=== PATIENT | female | born 1995 | race Caucasian/White ===

== ENCOUNTER 2020-08-03 19:18 | Emergency (ER) | payer BC, SELFPAY ==
--- NOTE | 2020-08-03 | ECG_ITS ---
Test Reason : EDMD Blood Pressure : / mmHG Vent. Rate : 091 BPM Atrial Rate : 091 BPM P-R Int : 134 ms QRS Dur : 080 ms QT Int : 372 ms P-R-T Axes : 035 026 011 degrees QTc Int : 457 ms Normal sinus rhythm Normal ECG When compared with ECG of 24-AUG-2019 12:59, No significant change was found Referred By: Generic ED Physician Electronically Signed By:CINDY MONTIEL
[2020-08-03 19:25] VITALS: BP 113/76; BP 141/72; PULSE 100; RESP 20; TEMP 36.7; O2SAT 99; BMI 19.1
--- NOTE | 2020-08-03 19:56 | ED.CHESTPAIN ---
HPI - Chest Pain General Chief Complaint: Chest Pain Stated Complaint: chest pressure anxiety Time Seen by Provider: 08/03/20 19:46 Related Data Home Medications Medication Instructions Recorded Confirmed alprazolam [Xanax] 0.25 mg PO DAILY 08/03/20 08/03/20 loratadine 10 mg PO DAILY 08/03/20 08/03/20 omeprazole 20 mg PO DAILY 08/03/20 08/03/20 Previous Rx's Medication Instructions Recorded cephalexin [Keflex] 500 mg PO Q12H 7 Days #14 cap 08/03/20 lorazepam [Ativan] 0.5 mg PO DAILY PRN #10 tab 08/03/20 Allergies Allergy/AdvReac Type Severity Reaction Status Date / Time No Known Allergies Allergy Verified 08/03/20 19:35 [No Known Allergies*] Review of Systems Review of Systems: Constitutional: No Weight loss, No Fever, No Chills, No Night Sweats, No Fatigue, No Malaise ENT/Mouth: No Hearing loss, No Ear Pain, No Nasal Congestion, No Sinus Pain, No Hoarseness, No sore throat, No Rhinorrhea, No Swallowing Difficulty Eyes: No Eye Pain, No Swelling, No Redness, No Foreign Body, No Discharge, No Vision Changes Cardiovascular: pos Chest Pain, pos SOB, no Dyspnea on Exertion, No Orthopnea, No Edema, positive Palpitations Respiratory: No Cough, No Sputum, No Wheezing, No Smoke Exposure, No Dyspnea Gastrointestinal: No Nausea, No Vomiting, No Diarrhea, No abdominal Pain, No Hematochezia, No Melena Genitourinary: No irregular bleeding, No Dysuria, No Urinary Frequency, No Hematuria, No Urinary Incontinence, No Urgency, No Flank Pain, No Urinary Flow Changes, No Hesitancy Musculoskeletal: No joint pain, No Myalgias, No Joint Swelling Skin: No Skin Lesions, No rash Neuro: No Weakness, No Numbness, No Paresthesias, No Loss of Consciousness, No Dizziness, No Headache Psych: No Anxiety/Panic, No Depression, No SI/HI/AH/VH Heme/Lymph: No Bruising, No Bleeding,No Lymphadenopathy Endocrine: No Polyuria, No Polydipsia, No Temperature Intolerance Yes all other systems are reviewed and are negative [facility] Past Medical History Attestation statement: The following information was validated with the patient. Source: old records reviewed Medical History (Updated 08/03/20 @ 21:27 by Savana Delgadillo NP) Anxiety Social History Social History Alcohol intake: never Smoking Status: Never smoker Use of substances other than those prescribed or required for medical reasons: No Advance Directives: No Advance Directives Information Provided: No Physical Exam Vital Signs: Vital Signs: Last Vital Signs Temp 98.9 F 08/03/20 21:49 Pulse 80 08/03/20 21:49 Resp 16 08/03/20 21:49 BP 129/79 08/03/20 21:49 Pulse Ox 99 08/03/20 21:49 Body Mass Index 19.1 Appearance: Alert. Oriented X3. No acute distress. Eyes: Pupils equal, round and reactive to light. ENT: Pharynx normal. Neck: Normal inspection. Neck supple. CVS: Normal heart rate and rhythm. Pulses normal. Respiratory: No respiratory distress. Breath sounds normal. Abdomen: Soft and nontender. Skin: Skin warm and dry. Normal skin color. Normal skin turgor. Extremities: No lower extremity edema. Neuro: No motor deficit. No sensory deficit. Course Course Course Narrative: 25-year-old female with past medical history of anxiety and environmental allergies presents to the emergency department with chest pain, palpitations, dizziness and weakness. She does not have a family history of sudden cardiac or congenital cardiac abnormalities. She states that her job is very stressful and that she has been very anxious over the past several months. She does drink alcohol on a daily basis, stating that she did drink 6 glasses of wine last night. Plan of care is to rule out ACS, CBC, Chem 7 and urinalysis. EKG is normal sinus rhythm, troponins negative, CBC is normal, chemistries are normal, urinalysis indicates UTI. Will treat with Keflex 500 mg p.o. b.i.d.. Will give patient 10 tablets of Ativan 0.5 mg, she was unable to get back to her primary care physician secondary to COVID-19 restrictions and her Xanax prescription has run out. Detailed discussion regarding finding healthier habits than alcohol, she does understand that she should not drink alcohol with her Ativan. Patient verbalized understanding of and agrees plan of care discharge home. MDM - Chest Pain Differential Diagnosis Differential diagnosis: Likely fracture of rib, stable angina, atypical chest pain and st elevation myocardial infarction Medical Records Data Attestation: I reviewed the patient's medical records. Lab Data Attestation: I reviewed the patient's lab results. Result diagrams: 08/03/20 20:01 08/03/20 20:01 Labs: Lab Results 08/03/20 08/03/20 08/03/20 Range/Units 20: 20:01 20:01 WBC 5.6 (4.8-10.8) X10*3/uL RBC 4.19 L (4.20-5.50) X10*6/uL Hgb 12.9 (12.0-16.0) g/dl Hct 38.1 (37-47) % MCV 90.9 (80-98) fL MCH 30.8 (27.0-33.0) pg MCHC 33.9 (31.0-35.0) g/dl RDW 11.3 (11.0-16.0) % Plt Count 301 (160-400) X10*3/uL MPV 8.6 L (9.4-12.3) fL Immature Gran % (Auto) 0.0 (0.0-0.4) % Neut % (Auto) 72.7 (45-73) % Lymph % (Auto) 18.3 L (20-40) % Cross % (Auto) 7.2 (2-11) % Eos % (Auto) 1.4 (0-4) % Baso % (Auto) 0.4 (0-2) % Lymph # (Auto) 1.0 L (1.2-4.9) X10*3/uL Cross # (Auto) 0.4 (0.1-1.2) X10*3/uL Eos # (Auto) 0.1 (0.0-0.4) X10*3/uL Baso # (Auto) 0.0 (0.0-0.2) X10*3/uL Abs Immat Gran (auto) 0.00 (0.00-0.03) X10*3/uL Absolute Neuts (auto) 4.1 (2.0-8.3) X10*3/uL Absolute Nucleated RBC 0.000 (0.0-0.012) X10*3/uL Nucleated RBC % (auto) 0.0 (0.0-0.2) /100WBC Sodium 138 (135-145) mmol/L Potassium 3.5 (3.3-5.1) mmol/l Chloride 101 (96-108) mmol/L Carbon Dioxide 26 (22-29) mmol/L Anion Gap 15 (12-20) BUN 11 (9-16) mg/dL Creatinine 0.77 (0.5-1.4) mg/dL Estim Creat Clear Calc 92.8 Estimated GFR > 60 Random Glucose 95 (60-115) mg/dL Calcium 9.0 (8.4-10.2) mg/dL Troponin I High Sens < 3.5 (<3.5-17.0) ng/L Urine Color Urine Appearance Urine pH (5.0-8.0) Ur Specific [place] (1.005-1.025) Urine Protein (NEG-TRACE) MG/DL Urine Glucose (UA) (NEG) MG/DL Urine Ketones (NEG) MG/DL Urine Blood (NEG) Urine Nitrite (NEG) Ur Leukocyte Esterase (NEG) Urine RBC (0) /HPF Urine WBC (0-4) /HPF Ur Squamous Epith Cells /LPF Urine Bacteria /LPF Urine Test (NEGATIVE) 08/03/20 Range/Units 20:29 WBC (4.8-10.8) X10*3/uL RBC (4.20-5.50) X10*6/uL Hgb (12.0-16.0) g/dl Hct (37-47) % MCV (80-98) fL MCH (27.0-33.0) pg MCHC (31.0-35.0) g/dl RDW (11.0-16.0) % Plt Count (160-400) X10*3/uL MPV (9.4-12.3) fL Immature Gran % (Auto) (0.0-0.4) % Neut % (Auto) (45-73) % Lymph % (Auto) (20-40) % Cross % (Auto) (2-11) % Eos % (Auto) (0-4) % Baso % (Auto) (0-2) % Lymph # (Auto) (1.2-4.9) X10*3/uL Cross # (Auto) (0.1-1.2) X10*3/uL Eos # (Auto) (0.0-0.4) X10*3/uL Baso # (Auto) (0.0-0.2) X10*3/uL Abs Immat Gran (auto) (0.00-0.03) X10*3/uL Absolute Neuts (auto) (2.0-8.3) X10*3/uL Absolute Nucleated RBC (0.0-0.012) X10*3/uL Nucleated RBC % (auto) (0.0-0.2) /100WBC Sodium (135-145) mmol/L Potassium (3.3-5.1) mmol/l Chloride (96-108) mmol/L Carbon Dioxide (22-29) mmol/L Anion Gap (12-20) BUN (9-16) mg/dL Creatinine (0.5-1.4) mg/dL Estim Creat Clear Calc Estimated GFR Random Glucose (60-115) mg/dL Calcium (8.4-10.2) mg/dL Troponin I High Sens (<3.5-17.0) ng/L Urine Color YELLOW Urine Appearance CLEAR Urine pH 7.0 (5.0-8.0) Ur Specific [place] 1.010 (1.005-1.025) Urine Protein NEG (NEG-TRACE) MG/DL Urine Glucose (UA) NEG (NEG) MG/DL Urine Ketones 5 (NEG) MG/DL Urine Blood 2+ H (NEG) Urine Nitrite NEG (NEG) Ur Leukocyte Esterase NEG (NEG) Urine RBC 10-14 H (0) /HPF Urine WBC 0 (0-4) /HPF Ur Squamous Epith Cells 3+ /LPF Urine Bacteria 1+ /LPF Urine Test NEGATIVE (NEGATIVE) ECG Data ECG #1: Attestation: I personally reviewed and interpreted this ECG as follows: ECG interpretation date: 08/03/20 ECG interpretation time: 19:50 Interpretation: Vent. Rate : 091 BPM Atrial Rate : 091 BPM P-R Int : 134 ms QRS Dur : 080 ms QT Int : 372 ms P-R-T Axes : 035 026 011 degrees QTc Int : 457 ms Normal sinus rhythm Normal ECG When compared with ECG of 24-AUG-2019 12:59, No significant change was found Scores Heart Score History: -0- slightly suspicious ECG: -0- normal Age: -0- < or = 45 Risk factory: -0- no risk factors known Troponin: -0- < or = normal limit Score: 0 Risk: 1.7% Discharge Plan Discharge Clinical Impression: Anxiety, Non-cardiac chest pain UTI (urinary tract infection) Qualifiers: Urinary tract infection type: acute cystitis Hematuria presence: with hematuria Qualified Code(s): N30.01 - Acute cystitis with hematuria Patient Disposition: Home, Self-Care Instructions: Urinary Tract Infection in Women (ED), Noncardiac Chest Pain (ED), Anxiety (ED) Additional Instructions: You were evaluated for chest pain. EKG is normal sinus rhythm, cardiac enzymes are negative,. Your blood levels are normal. Urinalysis shows indication of urinary tract infection. Please take Keflex 500 mg twice a day for the next 7 days. Drink plenty of fluids. We prescribed Ativan for anxiety. Please take this medication as directed. This medication is a benzo diazepam and has high risk for addiction and abuse. Do not drive or operate machinery while taking this medication. Do not drink alcohol while taking this medication Thank you for choosing this emergency department for evaluation. Please follow-up with primary care physician as needed. Return to the emergency department for any new, concerning, or worsening symptoms. Prescriptions: New lorazepam [Ativan] 0.5 mg tablet 0.5 mg PO DAILY PRN (Reason: anxiety) Qty: 10 RF: 0 cephalexin [Keflex] 500 mg capsule 500 mg PO Q12H 7 Days Qty: 14 RF: 0 No Action alprazolam [Xanax] 0.25 mg Tablet 0.25 mg PO DAILY RF: 0 omeprazole 20 mg Capsule,Delayed Release(Dr/Ec) 20 mg PO DAILY RF: 0 loratadine 10 mg Tablet 10 mg PO DAILY RF: 0 Interventions: ED Discharge Assessment Last Done: 08/03/20 21:51 Discharge Date/Time: 08/03/20 21:53
[2020-08-03 20:06] LABS: MANUAL DIFF FLAG NO
[2020-08-03 20:07] LABS: Basophils Percent Auto 0.4 % (0-2); Eosinophils Absolute Auto 0.1 X10*3/uL (0.0-0.4); Eosinophils Percent Auto 1.4 % (0-4); Hematocrit 38.1 % (37-47); Hemoglobin 12.9 g/dl (12.0-16.0); Lymphocytes Percent Auto 18.3 % (20-40); Mean Corpuscular HGB Conc 33.9 g/dl (31.0-35.0); Mean Corpuscular Hemoglobin 30.8 pg (27.0-33.0); Mean Corpuscular Volume 90.9 fL (80-98); Mean Platelet Volume 8.6 fL (9.4-12.3); Monocytes Absolute Auto 0.4 X10*3/uL (0.1-1.2); Monocytes Percent Auto 7.2 % (2-11); Neutrophils Absolute Auto 4.1 X10*3/uL (2.0-8.3); Neutrophils Percent Auto 72.7 % (45-73); Platelet Count 301 X10*3/uL (160-400); Red Blood Count 4.19 X10*6/uL (4.20-5.50); Red Cell Distribution Width 11.3 % (11.0-16.0); White Blood Count 5.6 X10*3/uL (4.8-10.8)
[2020-08-03 20:31] LABS: Anion Gap 15 (12-20); Blood Urea Nitrogen 11 mg/dL (9-16); Carbon Dioxide 26 mmol/L (22-29); Chloride 101 mmol/L (96-108); Creatinine Clr Calc Pharmacy 92.8; Estimated Glomerular Filt Rate > 60; Glucose Random 95 mg/dL (60-115); Potassium 3.5 mmol/l (3.3-5.1); Sodium 138 mmol/L (135-145)
[2020-08-03 20:37] LABS: Glucose Urine UA NEG (NEG); Leukocyte Esterase Urine NEG (NEG); Nitrite Urine NEG (NEG); Urine Blood 2+ (NEG); Urine Ketones 5 MG/DL (NEG); Urine Protein NEG (NEG-TRACE)
[2020-08-03 20:38] LABS: Appearance Urine CLEAR; Color Urine YELLOW; Urine Pregnancy NEGATIVE (NEGATIVE)
[2020-08-03 20:38] LABS: Troponin-I High Sensitivity < 3.5 ng/L (<3.5-17.0)
[2020-08-03 20:39] LABS: UPreg QC Valid YES
[2020-08-03 20:44] LABS: Bacteria Urine 1+ /LPF; Squamous Epithelial Cell Urine 3+ /LPF; WBC Urine 0 /HPF (0-4)
[2020-08-03] MEDS: cephALEXin 500 MG CAPSULE PO (21:35)
[2020-08-03 21:49] VITALS: BP 129/79; PULSE 80; RESP 16; TEMP 37.2; O2SAT 99
== END 2020-08-03 21:53 | disposition home or self-care (01) ==
PROVIDERS: Nurse Practitioner Family; Emergency Provider Emergency Medicine Emergency Medical Services; PCP Internal Medicine
DX: R07.89 Other chest pain (principal); N30.01 Acute cystitis with hematuria; F41.1 Generalized anxiety disorder; F43.0 Acute stress reaction
CPT/HCPCS: 36415; 80048; 81001; 81025; 84484; 85025; 93005; 99283; 99284

== ENCOUNTER 2020-11-29 16:25 | Emergency (ER) | payer BC, SELFPAY ==
--- NOTE | ~2020-11-29 | XR_ITS ---
EXAMINATION: PORTABLE CHEST 1 VIEW CLINICAL INFORMATION: CHEST PAIN . COMPARISON: No recent pertinent prior studies are available for comparison. TECHNIQUE: Portable frontal view of the chest was obtained. FINDINGS: The lungs are well expanded. No focal infiltrate, effusion, edema, or pneumothorax. Cardiac and mediastinal silhouettes are within normal limits for technique. No acute bony abnormality seen. XR/XR chest 1V IMPRESSION: No evidence of acute disease.
[2020-11-29 16:28] VITALS: BP 145/90; PULSE 88; RESP 28; TEMP 37.2; O2SAT 100; BMI 19.3
--- NOTE | 2020-11-29 19:14 | ECG_ITS ---
Test Reason : CHEST PAIN Blood Pressure : / mmHG Vent. Rate : 093 BPM Atrial Rate : 093 BPM P-R Int : 140 ms QRS Dur : 084 ms QT Int : 386 ms P-R-T Axes : 044 015 -04 degrees QTc Int : 479 ms Normal sinus rhythm Normal ECG When compared with ECG of 03-AUG-2020 19:50, No significant change was found Referred By: Generic ED Physician Electronically Signed By:FENG HICKEY MD
[2020-11-29 20:16] VITALS: BP 131/81; PULSE 98; RESP 16; TEMP 37; O2SAT 100
[2020-11-29 20:20] VITALS: PULSE 98
[2020-11-29 20:38] LABS: MANUAL DIFF FLAG NO
[2020-11-29 20:40] LABS: Basophils Percent Auto 0.2 % (0-2); Eosinophils Absolute Auto 0.1 X10*3/uL (0.0-0.4); Eosinophils Percent Auto 1.5 % (0-4); Hematocrit 37.8 % (37-47); Hemoglobin 12.7 g/dl (12.0-16.0); Imm Gran Abs Auto 0.01 X10*3/uL (0.00-0.03); Imm Gran Pct Auto 0.2 % (0.0-0.4); Lymphocytes Absolute Auto 1.2 X10*3/uL (1.2-4.9); Lymphocytes Percent Auto 20.3 % (20-40); Mean Corpuscular HGB Conc 33.6 g/dl (31.0-35.0); Mean Corpuscular Hemoglobin 31.3 pg (27.0-33.0); Mean Corpuscular Volume 93.1 fL (80-98); Mean Platelet Volume 8.5 fL (9.4-12.3); Monocytes Absolute Auto 0.4 X10*3/uL (0.1-1.2); Monocytes Percent Auto 7.4 % (2-11); Neutrophils Absolute Auto 4.1 X10*3/uL (2.0-8.3); Neutrophils Percent Auto 70.4 % (45-73); Platelet Count 327 X10*3/uL (160-400); Red Blood Count 4.06 X10*6/uL (4.20-5.50); Red Cell Distribution Width 11.6 % (11.0-16.0); White Blood Count 5.9 X10*3/uL (4.8-10.8)
--- NOTE | 2020-11-29 21:07 | ED.CHESTPAIN ---
HPI - Chest Pain General Chief Complaint: Chest Pain Stated Complaint: chest pain Time Seen by Provider: 11/29/20 21:07 Source: patient Mode of arrival: ambulatory History of Present Illness HPI narrative: Patient with longstanding history of anxiety and panic attack panic attacks as well as Xanax dependency and has been trying to undergo a tapering protocol but unable to. She has been taking more than her prescribed recommendations and currently presents with feelings of anxiety tremulousness, palpitations, shortness of breath, chest pain, abdominal symptoms. She states that she finished her medications 2 weeks prior to the refill. She says that the tapering is not working for her and that it is affecting her ability to function on a daily basis. She does say that she wants to the speak with somebody regarding her anxiety. Related Data Home Medications Medication Instructions Recorded Confirmed alprazolam [Xanax] 0.25 mg PO DAILY 08/03/20 08/03/20 loratadine 10 mg PO DAILY 08/03/20 08/03/20 omeprazole 20 mg PO DAILY 08/03/20 08/03/20 Previous Rx's Medication Instructions Recorded cephalexin [Keflex] 500 mg PO Q12H 7 Days #14 cap 08/03/20 lorazepam [Ativan] 0.5 mg PO DAILY PRN #10 tab 08/03/20 hydroxyzine HCl 25 mg PO TID PRN #10 tab 11/29/20 Allergies Allergy/AdvReac Type Severity Reaction Status Date / Time No Known Allergies Allergy Verified 08/03/20 19:35 [No Known Allergies*] Review of Systems Review of Systems: Pertinent positives and negatives as stated in HPI 10 point review of systems is otherwise negative. [facility] Past Medical History Source: nursing notes reviewed Medical History Anxiety Social History Social History Alcohol intake: unknown Smoking Status: Unknown if ever smoked Use of substances other than those prescribed or required for medical reasons: Unknown Substance Use Type Other:: xanax- prescribed 0.25mg daily, states she has not taken today Advance Directives: No Advance Directives Information Provided: No Physical Exam Vital Signs: Vital Signs: Last Vital Signs Temp 98.6 F 11/29/20 20:16 Pulse 98 11/29/20 20:16 Resp 16 11/29/20 20:16 BP 131/81 11/29/20 20:16 Pulse Ox 100 11/29/20 20:16 Body Mass Index 19.3 VITAL SIGNS: Reviewed. GENERAL: Well developed, well nourished, anxious. HEAD: Normocephalic/atraumatic EYES: PERRLA, EOMI EARS: Ext canals without abnormality NOSE: Nares patent bilateral OROPHARYNX: no oral lesions noted, posterior pharynx clear NECK: Supple, no adenopathy LUNGS: Normal breath sounds. No adventitious sounds or accessory muscle use. SpO2<100> CARDIOVASCULAR: Regular rate and rhythm without noted murmurs ABDOMEN: Soft, non-tender, non-distended with bowel sounds. NEUROLOGIC: Alert and oriented x 4. Strength and sensation to light touch were grossly intact x 4. PSYCH: Anxious, tremulous, anxious affect Course Course Course Narrative: This is a 25-year-old female with history and clinical presentation consistent with anxiety attack and persistent anxiety symptoms. She is currently being followed by a primary care provider as well as psychiatrist. Of all investigations there is no evidence for infection, anemia, metabolic derangement to better explain patient's symptoms. EKG is without acute findings to suggest arrhythmia or ischemia. Care team came by and spoke with the patient and offer her rest but and some additional resources, however patient is declining all suggestions at this time stating that she is unable to do so because of her job. She is not suicidal at this time and is otherwise medically stable for discharge to home and will be provided with a short course of hydroxyzine to assist in management of her anxiety symptoms. MDM - Chest Pain Lab Data Result diagrams: 11/29/20 20:33 11/29/20 20:33 Labs: Lab Results 11/29/20 11/29/20 11/29/20 Range/Units 20:33 20:33 20:33 WBC 5.9 (4.8-10.8) X10*3/uL RBC 4.06 L (4.20-5.50) X10*6/uL Hgb 12.7 (12.0-16.0) g/dl Hct 37.8 (37-47) % MCV 93.1 (80-98) fL MCH 31.3 (27.0-33.0) pg MCHC 33.6 (31.0-35.0) g/dl RDW 11.6 (11.0-16.0) % Plt Count 327 (160-400) X10*3/uL MPV 8.5 L (9.4-12.3) fL Immature Gran % (Auto) 0.2 (0.0-0.4) % Neut % (Auto) 70.4 (45-73) % Lymph % (Auto) 20.3 (20-40) % [place] % (Auto) 7.4 (2-11) % Eos % (Auto) 1.5 (0-4) % Baso % (Auto) 0.2 (0-2) % Lymph # (Auto) 1.2 (1.2-4.9) X10*3/uL [place] # (Auto) 0.4 (0.1-1.2) X10*3/uL Eos # (Auto) 0.1 (0.0-0.4) X10*3/uL Baso # (Auto) 0.0 (0.0-0.2) X10*3/uL Abs Immat Gran (auto) 0.01 (0.00-0.03) X10*3/uL Absolute Neuts (auto) 4.1 (2.0-8.3) X10*3/uL Absolute Nucleated RBC 0.000 (0.0-0.012) X10*3/uL Nucleated RBC % (auto) 0.0 (0.0-0.2) /100WBC Hold Blue Top SEE NOTE Sodium 141 (135-145) mmol/L Potassium 3.9 (3.3-5.1) mmol/L Chloride 104 (96-108) mmol/L Carbon Dioxide 27 (22-29) mmol/L Anion Gap 14 (12-20) BUN 6 L (9-16) mg/dL Creatinine 0.73 (0.5-1.4) mg/dL Estim Creat Clear Calc 99.5 Estimated GFR > 60 Random Glucose 105 (60-115) mg/dL Calcium 9.9 D (8.4-10.2) mg/dL Troponin I High Sens (<3.5-17.0) ng/L Urine Color Urine Appearance Urine pH (5.0-8.0) Ur Specific [place] (1.005-1.025) Urine Protein (NEG-TRACE) MG/DL Urine Glucose (UA) (NEG) MG/DL Urine Ketones (NEG) MG/DL Urine Blood (NEG) Urine Nitrite (NEG) Ur Leukocyte Esterase (NEG) Urine Opiates Screen (Not Detect) Ur Barbiturates Screen (Not Detect) Ur Phencyclidine Scrn (Not Detect) Ur Amphetamines Screen (Not Detect) U Benzodiazepines Scrn (Not Detect) Urine Cocaine Screen (Not Detect) U Marijuana (THC) Screen (Not Detect) COVID-19 ([facility]) (Negative) COVID-19 Clin Com 11/29/20 11/29/20 11/29/20 Range/Units 20:33 20:43 21:42 WBC (4.8-10.8) X10*3/uL RBC (4.20-5.50) X10*6/uL Hgb (12.0-16.0) g/dl Hct (37-47) % MCV (80-98) fL MCH (27.0-33.0) pg MCHC (31.0-35.0) g/dl RDW (11.0-16.0) % Plt Count (160-400) X10*3/uL MPV (9.4-12.3) fL Immature Gran % (Auto) (0.0-0.4) % Neut % (Auto) (45-73) % Lymph % (Auto) (20-40) % [place] % (Auto) (2-11) % Eos % (Auto) (0-4) % Baso % (Auto) (0-2) % Lymph # (Auto) (1.2-4.9) X10*3/uL [place] # (Auto) (0.1-1.2) X10*3/uL Eos # (Auto) (0.0-0.4) X10*3/uL Baso # (Auto) (0.0-0.2) X10*3/uL Abs Immat Gran (auto) (0.00-0.03) X10*3/uL Absolute Neuts (auto) (2.0-8.3) X10*3/uL Absolute Nucleated RBC (0.0-0.012) X10*3/uL Nucleated RBC % (auto) (0.0-0.2) /100WBC Hold Blue Top Sodium (135-145) mmol/L Potassium (3.3-5.1) mmol/L Chloride (96-108) mmol/L Carbon Dioxide (22-29) mmol/L Anion Gap (12-20) BUN (9-16) mg/dL Creatinine (0.5-1.4) mg/dL Estim Creat Clear Calc Estimated GFR Random Glucose (60-115) mg/dL Calcium (8.4-10.2) mg/dL Troponin I High Sens < 3.5 (<3.5-17.0) ng/L Urine Color YELLOW Urine Appearance CLEAR Urine pH 7.0 (5.0-8.0) Ur Specific [place] 1.010 (1.005-1.025) Urine Protein NEG (NEG-TRACE) MG/DL Urine Glucose (UA) NEG (NEG) MG/DL Urine Ketones NEG (NEG) MG/DL Urine Blood NEG (NEG) Urine Nitrite NEG (NEG) Ur Leukocyte Esterase NEG (NEG) Urine Opiates Screen (Not Detect) Ur Barbiturates Screen (Not Detect) Ur Phencyclidine Scrn (Not Detect) Ur Amphetamines Screen (Not Detect) U Benzodiazepines Scrn (Not Detect) Urine Cocaine Screen (Not Detect) U Marijuana (THC) Screen (Not Detect) COVID-19 ([facility]) Negative (Negative) COVID-19 Clin Com See Note 11/29/20 Range/Units 21:42 WBC (4.8-10.8) X10*3/uL RBC (4.20-5.50) X10*6/uL Hgb (12.0-16.0) g/dl Hct (37-47) % MCV (80-98) fL MCH (27.0-33.0) pg MCHC (31.0-35.0) g/dl RDW (11.0-16.0) % Plt Count (160-400) X10*3/uL MPV (9.4-12.3) fL Immature Gran % (Auto) (0.0-0.4) % Neut % (Auto) (45-73) % Lymph % (Auto) (20-40) % [place] % (Auto) (2-11) % Eos % (Auto) (0-4) % Baso % (Auto) (0-2) % Lymph # (Auto) (1.2-4.9) X10*3/uL [place] # (Auto) (0.1-1.2) X10*3/uL Eos # (Auto) (0.0-0.4) X10*3/uL Baso # (Auto) (0.0-0.2) X10*3/uL Abs Immat Gran (auto) (0.00-0.03) X10*3/uL Absolute Neuts (auto) (2.0-8.3) X10*3/uL Absolute Nucleated RBC (0.0-0.012) X10*3/uL Nucleated RBC % (auto) (0.0-0.2) /100WBC Hold Blue Top Sodium (135-145) mmol/L Potassium (3.3-5.1) mmol/L Chloride (96-108) mmol/L Carbon Dioxide (22-29) mmol/L Anion Gap (12-20) BUN (9-16) mg/dL Creatinine (0.5-1.4) mg/dL Estim Creat Clear Calc Estimated GFR Random Glucose (60-115) mg/dL Calcium (8.4-10.2) mg/dL Troponin I High Sens (<3.5-17.0) ng/L Urine Color Urine Appearance Urine pH (5.0-8.0) Ur Specific [place] (1.005-1.025) Urine Protein (NEG-TRACE) MG/DL Urine Glucose (UA) (NEG) MG/DL Urine Ketones (NEG) MG/DL Urine Blood (NEG) Urine Nitrite (NEG) Ur Leukocyte Esterase (NEG) Urine Opiates Screen Not Detected (Not Detect) Ur Barbiturates Screen Not Detected (Not Detect) Ur Phencyclidine Scrn Not Detected (Not Detect) Ur Amphetamines Screen Not Detected (Not Detect) U Benzodiazepines Scrn Not Detected (Not Detect) Urine Cocaine Screen Not Detected (Not Detect) U Marijuana (THC) Screen Not Detected (Not Detect) COVID-19 ([facility]) (Negative) COVID-19 Clin Com ECG Data ECG #1: Attestation: I personally reviewed and interpreted this ECG as follows: Prior ECG tracings: available for review (08/03/2020 no acute changes on comparison) Interpretation: Sinus rhythm, HR-93, no evidence of acute ischemia, CT/QRS/QTC are within normal limits. Discharge Plan Discharge Clinical Impression: Anxiety attack Patient Disposition: Home, Self-Care Instructions: Anxiety (ED), Panic Attack (ED), Anxiolysis in Adults (ED) Additional Instructions: Please resume all home medications as prescribed. Please follow-up with your primary care provider as well as your psychiatrist within the next 1-2 days for re-evaluation. Try to refrain from all caffeinated products which may further exacerbate your anxiety symptoms. Do not hesitate to return to the emergency room should you change your mind regarding a more structured approach to your anxiety. Prescriptions: New hydroxyzine HCl 25 mg tablet 25 mg PO TID PRN (Reason: anxiety) Qty: 10 RF: 0 No Action alprazolam [Xanax] 0.25 mg Tablet 0.25 mg PO DAILY RF: 0 omeprazole 20 mg Capsule,Delayed Release(Dr/Ec) 20 mg PO DAILY RF: 0 loratadine 10 mg Tablet 10 mg PO DAILY RF: 0 lorazepam [Ativan] 0.5 mg tablet 0.5 mg PO DAILY PRN (Reason: anxiety) Qty: 10 RF: 0 cephalexin [Keflex] 500 mg capsule 500 mg PO Q12H 7 Days Qty: 14 RF: 0 Referrals: Leonidas Pittman [Primary Care Provider] - 2 days (Re-evaluation after seen in the emergency room for anxiety.)
[2020-11-29 21:13] LABS: Anion Gap 14 (12-20); Blood Urea Nitrogen 6 mg/dL (9-16); Calcium 9.9 mg/dL (8.4-10.2); Carbon Dioxide 27 mmol/L (22-29); Chloride 104 mmol/L (96-108); Creatinine Clr Calc Pharmacy 99.5; Estimated Glomerular Filt Rate > 60; Glucose Random 105 mg/dL (60-115); Potassium 3.9 mmol/L (3.3-5.1); Sodium 141 mmol/L (135-145)
[2020-11-29 21:21] LABS: Troponin-I High Sensitivity < 3.5 ng/L (<3.5-17.0)
[2020-11-29 21:38] LABS: COVID-19 Test Negative (Negative)
[2020-11-29 21:56] LABS: Glucose Urine UA NEG (NEG); Leukocyte Esterase Urine NEG (NEG); Nitrite Urine NEG (NEG); Urine Blood NEG (NEG); Urine Ketones NEG (NEG); Urine Protein NEG (NEG-TRACE)
[2020-11-29 21:58] LABS: Appearance Urine CLEAR; Color Urine YELLOW
[2020-11-29 22:26] LABS: Amphetamine Screen Urine Not Detected (Not Detect); Barbiturates, Urine Not Detected (Not Detect); Benzodiazepines Screen Urine Not Detected (Not Detect); Cannabinoid Screen Urine Not Detected (Not Detect); Cocaine Screen Urine Not Detected (Not Detect); Opiate Screen Urine Not Detected (Not Detect); Phencyclidine Screen Urine Not Detected (Not Detect)
--- NOTE | 2020-11-29 23:08 | MHC.CARE ---
T/W met with pt due to pt experiencing significant anxiety. Pt reports she experiences panic attacks frequently and her anxiety has progressed significantly. She states she was prescribed xanax four years ago and is currently being tappered off the medication however struggles to not take more than prescribed. pt states she has exhausted all options such as coping skills, CBT therapist and outpatient services. She states she is helpless as she is trying to find something that will help her overcome her anxiety. She presents today due to the fear that she is dying and fear that she has a bad heart. She expresses she constantly worries about her health despite having any reason to.I provided her with active listening and validation. I recommended she start with seeing a therapist again and suggested PHP. Pt declines PHP due to work and states she does not have FMLA or time to take away from work as this is a new job. I provided her with crisis phone number for additional support.
[2020-11-29] MEDS: hydrOXYzine HCL 25 MG TABLET PO (23:37)
== END 2020-11-29 23:45 | disposition home or self-care (01) ==
PROVIDERS: Emergency Provider Student in an Organized Health Care Education/Training Program; PCP Hospitalist
DX: R07.9 Chest pain, unspecified (principal); F41.1 Generalized anxiety disorder; F43.0 Acute stress reaction; Z20.822 Contact with and (suspected) exposure to COVID-19; Z79.899 Other long term (current) drug therapy
CPT/HCPCS: 36415; 71045; 80048; 80307; 81003; 84484; 85025; 87635; 93005; 99284

== ENCOUNTER 2020-12-06 10:39 | Emergency (ER) | payer BC, SELFPAY ==
[2020-12-06 11:08] VITALS: BP 124/80; BP 130/86; PULSE 100; PULSE 103; RESP 20; TEMP 36.3; O2SAT 100; BMI 20.1
--- NOTE | 2020-12-06 11:21 | ED_ITS ---
HPI - Anxiety General Chief Complaint: Anxiety Stated Complaint: vaccinated Time Seen by Provider: 12/06/20 11:20 Source: patient, family and EMS Mode of arrival: EMS History of Present Illness HPI narrative: 25-year-old female with a past medical history of anxiety presenting to the ED complaining of SOB, chest tightness, tongue tingling, throat swelling sensation since Mederna vaccination on Wednesday. Also reports grandmother recently passed of COVID-19, services were recently. Denies wheezing, rash, fever, chills, cough, abdominal pain, nausea/vomiting, recent travel MD complaint: anxiety and shortness of breath Related Data Home Medications Medication Instructions Recorded Confirmed alprazolam [Xanax] 0.25 mg PO DAILY 08/03/20 08/03/20 loratadine 10 mg PO DAILY 08/03/20 08/03/20 omeprazole 20 mg PO DAILY 08/03/20 08/03/20 Previous Rx's Medication Instructions Recorded cephalexin [Keflex] 500 mg PO Q12H 7 Days #14 cap 08/03/20 lorazepam [Ativan] 0.5 mg PO DAILY PRN #10 tab 08/03/20 hydroxyzine HCl 25 mg PO TID PRN #10 tab 11/29/20 Allergies Allergy/AdvReac Type Severity Reaction Status Date / Time No Known Allergies Allergy Verified 08/03/20 19:35 [No Known Allergies*] Review of Systems Review of Systems: Constitutional: No Fever, No Chills, No Fatigue, No Malaise ENT/Mouth: No Hoarseness, + sore throat, No Rhinorrhea, No Swallowing Difficulty Eyes: No Eye Pain, No Discharge, No Vision Changes Cardiovascular: +chest tightness,+ SOB, No Palpitations Respiratory: No Cough, No Wheezing Gastrointestinal: No Nausea, No Vomiting, No Diarrhea, No Abdominal pain Musculoskeletal: No joint pain, No Myalgias Skin: No Skin Lesions, No rash Neuro: + Headache Psych: + Anxiety Yes all other systems are reviewed and are negative PMFSH Past Medical History Attestation statement: The following information was validated with the patient. Medical History Anxiety Social History Social History Alcohol intake: unknown Advance Directives: No Advance Directives Information Provided: No Physical Exam Vital Signs: Vital Signs: Last Vital Signs Temp 97.4 F 12/06/20 11:08 Pulse 103 H 12/06/20 11:08 Resp 20 12/06/20 11:08 BP 130/86 12/06/20 11:08 Pulse Ox 100 12/06/20 11:08 Body Mass Index 20.1 Const: General: cooperative and anxious Orientation/consciousness: patient oriented x3 Limitations: no limitations HENMT: Head: Yes normal to inspection, Yes normocephalic and Yes atraumatic Ears: hearing grossly normal bilaterally, external ears normal and TM's normal bilaterally General nose exam: Normal external nose present Face and sinus: Yes normal facial exam Mouth: Normal oral and palatal mucosa present Throat: Yes posterior oropharynx normal, Yes tonsils normal, Yes uvula midline, Yes abnormal tonsil, No peritonsillar mass, No uvula laterally displaced and No uvular edema Eyes: General: appearance normal, both eyes and all related structures EOM: EOMs intact bilaterally Neck: Neck: Yes normal visual inspection, Yes trachea midline, Yes supple, No anterior neck swelling, No midline deformity and No tracheal deviation Resp: Effort & Inspection: normal respiratory effort Auscultation: clear to auscultation bilaterally, no rales, no rhonchi and no wheezes Cardio: Rate: regular rate Heart sounds: S1 normal heart sound present and S2 normal heart sound present GI: Inspection: Yes normal to inspection Palpation (GI): Soft to palpation, nontender, no guarding and not rigid Skin: Rashes: no rashes Wounds: no wounds Neuro: General: patient oriented x3, tone normal and moves all extremities Gait exam (Neuro): Normal gait present Extrem: General: Yes normal to inspection MDM - Anxiety MDM Narrative Medical decision making narrative: 25-year-old female with a past medical history of anxiety presenting to the ED complaining of SOB, chest tightness, tongue tingling, throat swelling sensation since Mederna vaccination on Wed. On exam tachycardic, anxious, NAD, nontoxic appearing, talking in complete sentences, no signs of anaphylaxis, no intraoral swelling, lungs CTA. Symptoms likely anxiety induced vs vaccination side effect. Anaphylaxis unlikely Spoke to patient and mother provided reassurance, discussed she should follow-up with her PCP/vaccinations Center for further recommendations pertaining to 2nd dose Worrisome signs and symptoms and strict return precautions discussed Lab Data Labs: Lab Results 12/06/20 Range/Units 11:38 Coronavirus (PCR) NEGATIVE (Negative) Influenza Type A (PCR) NEGATIVE (Negative) Influenza Type B (PCR) NEGATIVE (Negative) RSV RNA Qual (PCR) NEGATIVE (Negative) Discharge Plan Discharge Clinical Impression: Side effects of vaccination Qualifiers: Encounter type: initial encounter Qualified Code(s): T50.Z95A - Adverse effect of other vaccines and biological substances, initial encounter Patient Disposition: Home, Self-Care Instructions: COVID-19 (Coronavirus Disease 2019) (ED) Additional Instructions: It is important for you to call your doctor pertaining to your symptoms today, and the center where he received her vaccination. If you develops any difficulty breathing, hives/rash, wheezing or fever return to the ED Based on your symptoms and history we have sent a COVID-19. Although your RESULT IS PENDING at this time. RESULTS should return within a few hours. At this time you will be contacted with either NEGATIVE OR POSITIVE results. -Please wait until we contact you for your results. At this time you will be okay for discharge. Please plan for self quarantine for up to 14 days. Do not expose yourself to others. You may not go to work. If testing does come back negative you may return to activities as long as you are no longer having any symptoms for at least 3 days. Please continue to follow cold instructions and wash your hands frequently. You may take Tylenol as directed on the bottle for pain or fever. CDC Guidelines for home isolation: - Stay away from others - WEAR A MASK if you are sick AND STAY HOME - Cover your mouth and nose with a tissue when you cough or sneeze. Dispose of tissues in a lined trash can and wash your hands immediately with soap and water for at least 20 seconds. If soap and water are not available, clean hands with alcohol-based hand building stonecutter that contains at least 60% alcohol. - Clean your hands often with soap and water for at least 20 seconds - Avoid touching your eyes, nose and mouth with unwashed hands - Do not share dishes, drinking glasses, cups, eating utensils, towels, or bedding with other people in your home. After using these items, wash them thoroughly with soap and water or put in the microbiology lab technician. - Clean high-touch surfaces in your isolation area ( sick room and bathroom) every day; let a caregiver clean and disinfect high-touch surfaces in other areas of the home. Clean the area or item with soap and water or another detergent if it is dirty. Then, use a household disinfectant. - Limit contact with pets and animals: If you must care for a pet, wash your hands before and after interacting with them) Prescriptions: No Action alprazolam [Xanax] 0.25 mg Tablet 0.25 mg PO DAILY RF: 0 omeprazole 20 mg Capsule,Delayed Release(Dr/Ec) 20 mg PO DAILY RF: 0 loratadine 10 mg Tablet 10 mg PO DAILY RF: 0 lorazepam [Ativan] 0.5 mg tablet 0.5 mg PO DAILY PRN (Reason: anxiety) Qty: 10 RF: 0 cephalexin [Keflex] 500 mg capsule 500 mg PO Q12H 7 Days Qty: 14 RF: 0 hydroxyzine HCl 25 mg tablet 25 mg PO TID PRN (Reason: anxiety) Qty: 10 RF: 0 Referrals: Leonidas Pittman [Primary Care Provider] - 3 days Stand Alone Forms: Work/School Release Interventions: ED Discharge Assessment Last Done: 12/06/20 12:14 Discharge Date/Time: 12/06/20 12:16
[2020-12-06 12:20] LABS: Influenza A PCR NEGATIVE (Negative); Influenza B PCR NEGATIVE (Negative); Resp Syncy Virus RNA Qual PCR NEGATIVE (Negative); SARS COV2 PCR INHOUSE NEGATIVE (Negative)
== END 2020-12-06 12:16 | disposition home or self-care (01) ==
PROVIDERS: Physician Assistant; Emergency Provider Emergency Medicine; PCP Hospitalist
DX: F41.9 Anxiety disorder, unspecified (principal); R00.0 Tachycardia, unspecified; R06.02 Shortness of breath; T50.B95A Adverse effect of other viral vaccines, initial encounter; Y92.039 Unspecified place in apartment as the place of occurrence of the external cause; Z20.822 Contact with and (suspected) exposure to COVID-19
CPT/HCPCS: 0241U; 36415; 99283

== ENCOUNTER 2020-12-17 17:04 | Emergency (ER) | payer BC, SELFPAY ==
[2020-12-17 17:19] VITALS: BP 110/79; PULSE 99; RESP 18; TEMP 36.8; O2SAT 99; BMI 19.2
--- NOTE | 2020-12-17 18:44 | ED.HA ---
HPI - Headache General Chief Complaint: Headache Stated Complaint: headache Time Seen by Provider: 12/17/20 20:30 Source: patient Mode of arrival: ambulatory Limitations: no limitations History of Present Illness HPI Narrative: 25-year-old female presents with multiple complaints. States that she has had over 2 months of headaches, numbness and tingling down the hands and legs, and anxiety. She feels that this is from the Med[place] vaccine 2 weeks ago however she has had these complaints for over 2 months. She has had several evaluations for similar complaints over the past 3 weeks. MD elicited complaint: headache Onset (ago): month(s) (2) Related Data Home Medications Medication Instructions Recorded Confirmed alprazolam [Xanax] 0.25 mg PO DAILY 08/03/20 08/03/20 loratadine 10 mg PO DAILY 08/03/20 08/03/20 omeprazole 20 mg PO DAILY 08/03/20 08/03/20 Previous Rx's Medication Instructions Recorded cephalexin [Keflex] 500 mg PO Q12H 7 Days #14 cap 08/03/20 lorazepam [Ativan] 0.5 mg PO DAILY PRN #10 tab 08/03/20 hydroxyzine HCl 25 mg PO TID PRN #10 tab 11/29/20 cyclobenzaprine 10 mg PO TID PRN #10 tab 12/17/20 Allergies Allergy/AdvReac Type Severity Reaction Status Date / Time No Known Allergies Allergy Verified 08/03/20 19:35 [No Known Allergies*] Review of Systems Review of Systems: Constitutional: Positive head pressure, positive numbness and tingling to the extremities, No Fever, No Chills ENT/Mouth: No Ear Pain, No Hoarseness, No sore throat Eyes: No Eye Pain, No Swelling, No Redness, No Foreign Body Cardiovascular: No Chest Pain, No SOB Respiratory: No Cough, No Dyspnea Gastrointestinal: No Nausea, No Vomiting, No Diarrhea, No abdominal Pain Genitourinary: No Dysuria, No Hematuria Musculoskeletal: No joint pain, No Myalgias, No Joint Swelling Skin: No Skin lacerations, No rash Neuro: No Weakness, No Numbness, No Paresthesias, No Loss of Consciousness, No Dizziness, positive Headache Psych: Positive Anxiety/Panic, No Depression Heme/Lymph: no easy bruising, no Lymphadenopathy Endocrine: No Polyuria, No Polydipsia Yes all other systems are reviewed and are negative [facility] Past Medical History Attestation statement: The following information was validated with the patient. Source: old records reviewed Medical History Anxiety Social History Social History Alcohol intake: never Smoked in Last 30 Days: No Use of substances other than those prescribed or required for medical reasons: No Advance Directives: No Advance Directives Information Provided: Yes Physical Exam Vital Signs: Vital Signs: Last Vital Signs Temp 98.2 F 12/17/20 17:19 Pulse 104 H 12/17/20 20:25 Resp 17 12/17/20 20:25 BP 117/80 12/17/20 20:25 Pulse Ox 99 12/17/20 20:25 Body Mass Index 19.2 Appearance: Alert. Oriented X3. Moderate anxiety. Head: Normal external exam. Normocephalic. Atraumatic. No Barron signs noted. No raccoon eyes noted Eyes: PERRLA. EOMI. Conjunctiva and sclera normal. Eyelids normal. ENT: TM's Normal. Pharynx normal. Uvula midline. Moist mucous membranes. No trismus noted. No drooling noted. No muffled voice noted. Neck: Normal inspection. Neck supple. No adenopathy. Thyroid Normal. No meningeal signs. No neck mass noted. CVS: Normal heart rate and rhythm. Heart sound normal. No murmurs noted. Pulses equal to all extremities. Respiratory: No respiratory distress. Painless inspiration. Breath sounds normal. No wheezes/rales/rhonchi noted. Chest nontender. No accessory muscle usage noted or decreased air movement noted. Abdomen: Soft and nontender. Bowel sounds normal in all 4 quadrants. No distention noted. No organomegaly noted. No visible injury noted. Back: No CVA tenderness. Full range of motion noted. Skin: Skin warm and dry. Normal skin color. Normal skin turgor. No rashes/lesions/lacerations noted. Extremities: No lower extremity edema. Extremities exhibit normal range of motion. Extremities nontender. Neuro: cranial nerves 2-12 intact, no focal neural deficits, strength 5/5 to all extremities, No motor deficit. No sensory deficit. Patellar Reflexes normal. Course Course Course Narrative: 25-year-old patient presents for the 2nd time for which he believes is Madonna vaccine related symptoms. However when she describes her symptoms, she states that she has had them for several months and feels that her symptoms could be related to a brain tumor or MS. She did have a CT scan which was negative for any acute findings. I did offer several medications for her headaches, and she needed multiple education attempts regarding medication reactions. She did mention that she is on Xanax, and has been weaning herself off of them. She was on 1 mg dose and now is taking half, highly unlikely that this is a benzo withdrawal reaction. She does report that her primary care is leaving and she has been looking for a physician prescribe her anti anxiety medications however she is unable to find 1. She does have a cochlear implant, and states that she needs an MRI but cannot have 1 because of this device. She mentions that her friend of a brain tumor but was unable to be found with a CT scan. She is asking for CT angiogram, however her last CT scan was negative for any acute findings. She did not have that scan at this facility. At this time she does not have any neurological symptoms, negative Brudzinski, Kernig signs. Negative Romberg. Patient is afebrile and has full range of motion to all extremities. Patient is not receptive to psychiatric consult at this time. Denies suicidal and homicidal ideation. Denies illicit drug use. She does have follow-up with an outpatient partial program later this week. Patient decline Imitrex, stated that the Fioricet was ineffective. She is driving so I did write her a prescription for cyclobenzaprine as she does have some muscle spasms in her neck. Her father is at bedside. Patient will be discharged home and was highly suggested that she follow-up with outpatient psychiatry as well as Neurology. MDM - Headache Differential Diagnosis Differential diagnosis: Likely migraine and tension headache Medical Records Attestation: I reviewed the patient's medical records. Discharge Plan Discharge Clinical Impression: Muscular aches, Anxiety Headache Qualifiers: Headache type: tension-type Headache chronicity pattern: chronic headache Intractability: intractable Qualified Code(s): G44.221 - Chronic tension-type headache, intractable Patient Disposition: Home, Self-Care Instructions: Acute Headache (ED), Muscle Spasm (ED), Anxiety (ED) Additional Instructions: You were evaluated for multiple complaints. You must follow-up with Neurology. Please call and request an appointment. Please describe your symptoms when you call. Please include that you had chronic headaches and head pressure. For your muscle spasms, we prescribed Flexeril. This medication is a muscle relaxer, please not drive or operate machinery while taking this medication as you may have drowsiness, delayed reaction time, and an increased risk for falls. Thank you for choosing this emergency department for evaluation. Please follow-up with primary care physician as needed. Return to the emergency department for any new, concerning, or worsening symptoms. Prescriptions: New cyclobenzaprine 10 mg tablet 10 mg PO TID PRN (Reason: muscle spasm) Qty: 10 RF: 0 No Action alprazolam [Xanax] 0.25 mg Tablet 0.25 mg PO DAILY RF: 0 omeprazole 20 mg Capsule,Delayed Release(Dr/Ec) 20 mg PO DAILY RF: 0 loratadine 10 mg Tablet 10 mg PO DAILY RF: 0 lorazepam [Ativan] 0.5 mg tablet 0.5 mg PO DAILY PRN (Reason: anxiety) Qty: 10 RF: 0 cephalexin [Keflex] 500 mg capsule 500 mg PO Q12H 7 Days Qty: 14 RF: 0 hydroxyzine HCl 25 mg tablet 25 mg PO TID PRN (Reason: anxiety) Qty: 10 RF: 0 Referrals: Blake Rosa MD [Physician] - 2 days (Multiple neurological symptoms) Interventions: ED Discharge Assessment Last Done: 12/17/20 20:44 Discharge Date/Time: 12/17/20 20:45
--- NOTE | 2020-12-17 18:52 | PC.NURSE ---
Provider at bedside for evaluation
[2020-12-17] MEDS: Butalb/Acetamin/Caff 50/325/40 TABLET 1 TAB PO (19:30)
[2020-12-17 20:25] VITALS: BP 117/80; PULSE 104; RESP 17; O2SAT 99
== END 2020-12-17 20:45 | disposition home or self-care (01) ==
PROVIDERS: Emergency Provider Internal Medicine
DX: G44.221 Chronic tension-type headache, intractable (principal); M79.10 Myalgia, unspecified site; F41.9 Anxiety disorder, unspecified
CPT/HCPCS: 99284; 99285

== ENCOUNTER 2021-03-26 14:07 | Outpatient (RCR) | payer BC, SELFPAY ==
--- NOTE | 2021-03-27 11:04 | PC.NURSE ---
Patient sent staff an email this morning stating she could not start the program today and wanted to start tomorrow. Spoke to Farrah Le NP about concerns that patient needed treatment at a detox program which Farrah Le NP agreed. Patient expressed need for detox and has been thinking about going into a program. Patient reports she was prescribed Xanax and was taken off this medication however she has been buying Xanax bars from a friend. Patient also reports drinking a bottle of wine or more daily for the past few months and continues to drink at this rate. Patient educated about potential serious side effects if she abruptly stopped use. Educated patient about sxs of withdrawal from xanax and ETOH and to go to the ER if experiencing symptoms of withdrawal. Patient given numbers to several facilities including [facility] in [facility], [facility], [facility] and [facility]. Patient did state she was not sure if she could go at this time as her is going on vacation and she would have to find someone to take care of her pets. Encouraged patient to talk to her about the importance of getting treatment.
== END 2021-03-27 08:25 | disposition home or self-care (01) ==
LOC: HO.PHPA 14:07
PROVIDERS: Visit Provider Psychiatry & Neurology Psychiatry
DX: F41.1 Generalized anxiety disorder (principal); F41.0 Panic disorder [episodic paroxysmal anxiety]; F13.20 Sedative, hypnotic or anxiolytic dependence, uncomplicated
CPT/HCPCS: 90791

== ENCOUNTER 2021-04-26 02:52 | Emergency (ER) | payer BC, SELFPAY ==
[2021-04-26 02:56] VITALS: BP 123/79; PULSE 107; RESP 18; TEMP 36.4; O2SAT 100; BMI 20.1
--- NOTE | 2021-04-26 03:04 | ECG_ITS ---
Test Reason : MEDICAL Blood Pressure : / mmHG Vent. Rate : 080 BPM Atrial Rate : 080 BPM P-R Int : 142 ms QRS Dur : 078 ms QT Int : 396 ms P-R-T Axes : 035 035 033 degrees QTc Int : 456 ms Normal sinus rhythm RSR' or QR pattern in V1 suggests right ventricular conduction delay Otherwise normal ECG No significant changes seen Referred By: Generic ED Physician Electronically Signed By:ARTURO ESPINOZA MD
[2021-04-26 03:44] VITALS: BP 107/70; PULSE 85; RESP 16; TEMP 37.1; O2SAT 97
[2021-04-26] MEDS: Acetaminophen 325 MG TABLET 975 MG PO (04:24)
--- NOTE | 2021-04-26 04:27 | ED_ITS ---
HPI - General Adult General Chief complaint: General Medical Stated complaint: chest pain, migraines Time Seen by Provider: 04/26/21 03:57 Source: patient Mode of arrival: ambulatory History of Present Illness HPI narrative: This is a 26-year-old female who has recently undergone inpatient rehab for Xanax and alcohol dependence and is currently doing well and taking her Ativan 0.5 mg 3 times a day as prescribed. However, she comes in with concerns about is headache for 2 weeks is not been associated with any fever, chills, focal deficits and tonight stated that she had sharp shooting pain into the top of her head and that this was not associated with any speech/visual deficits. Patient states that she has also been experiencing feelings of anxiety as well as heart palpitations but denies any nausea, vomiting, diarrhea, urinary pain/burning/frequency. Related Data Home Medications Medication Instructions Recorded Confirmed alprazolam 0.25 mg tablet (Xanax) 0.25 mg PO DAILY 08/03/20 08/03/20 loratadine 10 mg tablet 10 mg PO DAILY 08/03/20 08/03/20 omeprazole 20 mg capsule,delayed 20 mg PO DAILY 08/03/20 08/03/20 release Previous Rx's Medication Instructions Recorded cephalexin 500 mg capsule (Keflex) 500 mg PO Q12H 7 Days #14 cap 08/03/20 lorazepam 0.5 mg tablet (Ativan) 0.5 mg PO DAILY PRN #10 tab 08/03/20 hydroxyzine HCl 25 mg tablet 25 mg PO TID PRN #10 tab 11/29/20 cyclobenzaprine 10 mg tablet 10 mg PO TID PRN #10 tab 12/17/20 Allergies Allergy/AdvReac Type Severity Reaction Status Date / Time No Known Allergies Allergy Verified 04/26/21 02:56 [No Known Allergies*] Review of Systems Review of Systems: Pertinent positives and negatives as stated in HPI 10 point review of systems is otherwise negative. PMFSH Past Medical History Source: nursing notes reviewed Medical History Anxiety Social History Social History Household Members: Spouse Alcohol intake: never Patient Tobacco Use Status: Never used Tobacco Use of substances other than those prescribed or required for medical reasons: No Advance Directives: No Advance Directives Information Provided: Yes Physical Exam Vital Signs: Vital Signs: Last Vital Signs Temp 98.8 F 04/26/21 03:44 Pulse 85 04/26/21 03:44 Resp 16 04/26/21 03:44 BP 107/70 04/26/21 03:44 Pulse Ox 97 04/26/21 03:44 Body Mass Index 20.1 VITAL SIGNS: Reviewed. GENERAL: Well developed, well nourished, in no acute distress. HEAD: Normocephalic/atraumatic EYES: PERRLA, EOMI OROPHARYNX: no oral lesions noted, posterior pharynx clear LUNGS: Normal breath sounds. No adventitious sounds or accessory muscle use. SpO2<97> CARDIOVASCULAR: Regular rate and rhythm without noted murmurs ABDOMEN: Soft, non-tender, non-distended with bowel sounds. SKIN: Inspection of the skin reveals no rashes NEUROLOGIC: Alert and oriented x 4. Strength and sensation to light touch were grossly intact x 4. Course Course Course Narrative: Is a 26-year-old female with history and clinical presentation consistent with anxiety/panic attack and on review of all investigations there are no acute findings. All results and findings were discussed at bedside and she is otherwise stable for discharge to home. Medical Decision Making Lab Data Result diagrams: 04/26/21 04:17 04/26/21 04:17 Labs: Lab Results 04/26/21 04/26/21 04/26/21 Range/Units 04:17 04:17 04:17 WBC 4.8 (4.8-10.8) X10*3/uL RBC 4.13 L (4.20-5.50) X10*6/uL Hgb 13.2 (12.0-16.0) g/dl Hct 38.3 (37-47) % MCV 92.7 (80-98) fL MCH 32.0 (27.0-33.0) pg MCHC 34.5 (31.0-35.0) g/dl RDW 11.0 (11.0-16.0) % Plt Count 319 (160-400) X10*3/uL MPV 8.7 L (9.4-12.3) fL Immature Gran % (Auto) 0.4 (0.0-0.4) % Neut % (Auto) 53.8 (45-73) % Lymph % (Auto) 32.2 (20-40) % [place] % (Auto) 10.1 (2-11) % Eos % (Auto) 3.1 (0-4) % Baso % (Auto) 0.4 (0-2) % Lymph # (Auto) 1.6 (1.2-4.9) X10*3/uL [place] # (Auto) 0.5 (0.1-1.2) X10*3/uL Eos # (Auto) 0.2 (0.0-0.4) X10*3/uL Baso # (Auto) 0.0 (0.0-0.2) X10*3/uL Abs Immat Gran (auto) 0.02 (0.00-0.03) X10*3/uL Absolute Neuts (auto) 2.6 (2.0-8.3) X10*3/uL Absolute Nucleated RBC 0.000 (0.0-0.012) X10*3/uL Nucleated RBC % (auto) 0.0 (0.0-0.2) /100WBC D-Dimer < 200 NG/ML Sodium 142 (135-145) mmol/L Potassium 4.2 (3.3-5.1) mmol/L Chloride 107 (96-108) mmol/L Carbon Dioxide 27 (22-29) mmol/L Anion Gap 12 (12-20) BUN 8 L (9-16) mg/dL Creatinine 0.99 (0.5-1.4) mg/dL Estim Creat Clear Calc 75.7 Estimated GFR > 60 Random Glucose 120 H (60-115) mg/dL Calcium 9.3 D (8.4-10.2) mg/dL Total Bilirubin < 0.2 (0.0-1.0) mg/dL AST 17 (5-31) U/L ALT 17 (0-31) U/L Alkaline Phosphatase 68 (39-117) U/L Total Protein 7.3 (6.5-8.0) g/dL Albumin 4.5 (3.5-5.0) g/dL Urine Color Urine Appearance Urine pH (5.0-8.0) Ur Specific Jet (1.005-1.025) Urine Protein (NEG-TRACE) MG/DL Urine Glucose (UA) (NEG) MG/DL Urine Ketones (NEG) MG/DL Urine Blood (NEG) Urine Nitrite (NEG) Ur Leukocyte Esterase (NEG) Urine Test (NEGATIVE) COVID-19 ([facility]) (Negative) COVID-19 Clin Com 04/26/21 04/26/21 04/26/21 Range/Units 04:17 04:17 04:17 WBC (4.8-10.8) X10*3/uL RBC (4.20-5.50) X10*6/uL Hgb (12.0-16.0) g/dl Hct (37-47) % MCV (80-98) fL MCH (27.0-33.0) pg MCHC (31.0-35.0) g/dl RDW (11.0-16.0) % Plt Count (160-400) X10*3/uL MPV (9.4-12.3) fL Immature Gran % (Auto) (0.0-0.4) % Neut % (Auto) (45-73) % Lymph % (Auto) (20-40) % [place] % (Auto) (2-11) % Eos % (Auto) (0-4) % Baso % (Auto) (0-2) % Lymph # (Auto) (1.2-4.9) X10*3/uL [place] # (Auto) (0.1-1.2) X10*3/uL Eos # (Auto) (0.0-0.4) X10*3/uL Baso # (Auto) (0.0-0.2) X10*3/uL Abs Immat Gran (auto) (0.00-0.03) X10*3/uL Absolute Neuts (auto) (2.0-8.3) X10*3/uL Absolute Nucleated RBC (0.0-0.012) X10*3/uL Nucleated RBC % (auto) (0.0-0.2) /100WBC D-Dimer NG/ML Sodium (135-145) mmol/L Potassium (3.3-5.1) mmol/L Chloride (96-108) mmol/L Carbon Dioxide (22-29) mmol/L Anion Gap (12-20) BUN (9-16) mg/dL Creatinine (0.5-1.4) mg/dL Estim Creat Clear Calc Estimated GFR Random Glucose (60-115) mg/dL Calcium (8.4-10.2) mg/dL Total Bilirubin (0.0-1.0) mg/dL AST (5-31) U/L ALT (0-31) U/L Alkaline Phosphatase (39-117) U/L Total Protein (6.5-8.0) g/dL Albumin (3.5-5.0) g/dL Urine Color STRAW Urine Appearance CLEAR Urine pH 7.0 (5.0-8.0) Ur Specific Jet <= 1.005 (1.005-1.025) Urine Protein NEG (NEG-TRACE) MG/DL Urine Glucose (UA) NEG (NEG) MG/DL Urine Ketones NEG (NEG) MG/DL Urine Blood NEG (NEG) Urine Nitrite NEG (NEG) Ur Leukocyte Esterase NEG (NEG) Urine Test NEGATIVE (NEGATIVE) COVID-19 ([facility]) Negative (Negative) COVID-19 Clin Com See Note ECG Data Attestation: I personally reviewed and interpreted this ECG as follows: Prior ECG tracings: available for review (11/29/2020 no acute changes on comparison) Interpretation: Normal sinus rhythm, HR-80, no STEMI, SC/QRS/QTC are within normal limits. Discharge Plan Discharge Clinical Impression: Acute anxiety Patient Disposition: Home, Self-Care Instructions: Anxiety (ED) Additional Instructions: 1. Resume medications as prescribed. 2. Keep up the good work. Return to the ER for acute worsening of symptoms. Prescriptions: No Action cyclobenzaprine 10 mg tablet 10 mg PO TID PRN (Reason: muscle spasm) Qty: 10 RF: 0 alprazolam [Xanax] 0.25 mg Tablet 0.25 mg PO DAILY RF: 0 omeprazole 20 mg Capsule,Delayed Release(Dr/Ec) 20 mg PO DAILY RF: 0 loratadine 10 mg Tablet 10 mg PO DAILY RF: 0 lorazepam [Ativan] 0.5 mg tablet 0.5 mg PO DAILY PRN (Reason: anxiety) Qty: 10 RF: 0 cephalexin [Keflex] 500 mg capsule 500 mg PO Q12H 7 Days Qty: 14 RF: 0 hydroxyzine HCl 25 mg tablet 25 mg PO TID PRN (Reason: anxiety) Qty: 10 RF: 0 Referrals: Leonidas Pittman [Primary Care Provider] - 2 days
[2021-04-26 04:37] LABS: MANUAL DIFF FLAG NO
[2021-04-26 04:38] LABS: Basophils Percent Auto 0.4 % (0-2); Eosinophils Absolute Auto 0.2 X10*3/uL (0.0-0.4); Eosinophils Percent Auto 3.1 % (0-4); Hematocrit 38.3 % (37-47); Hemoglobin 13.2 g/dl (12.0-16.0); Imm Gran Abs Auto 0.02 X10*3/uL (0.00-0.03); Imm Gran Pct Auto 0.4 % (0.0-0.4); Lymphocytes Absolute Auto 1.6 X10*3/uL (1.2-4.9); Lymphocytes Percent Auto 32.2 % (20-40); Mean Corpuscular HGB Conc 34.5 g/dl (31.0-35.0); Mean Corpuscular Volume 92.7 fL (80-98); Mean Platelet Volume 8.7 fL (9.4-12.3); Monocytes Absolute Auto 0.5 X10*3/uL (0.1-1.2); Monocytes Percent Auto 10.1 % (2-11); Neutrophils Absolute Auto 2.6 X10*3/uL (2.0-8.3); Neutrophils Percent Auto 53.8 % (45-73); Platelet Count 319 X10*3/uL (160-400); Red Blood Count 4.13 X10*6/uL (4.20-5.50); White Blood Count 4.8 X10*3/uL (4.8-10.8)
[2021-04-26 04:41] LABS: Appearance Urine CLEAR; Color Urine STRAW; Glucose Urine UA NEG (NEG); Leukocyte Esterase Urine NEG (NEG); Nitrite Urine NEG (NEG); Specific Gravity - Urine <= 1.005 (1.005-1.025); UACC Culture Trigger NO; Urine Blood NEG (NEG); Urine Ketones NEG (NEG); Urine Protein NEG (NEG-TRACE)
[2021-04-26 04:48] LABS: UPreg QC Valid YES; Urine Pregnancy NEGATIVE (NEGATIVE)
[2021-04-26 04:49] LABS: D Dimer < 200 NG/ML
[2021-04-26 04:50] LABS: COVID-19 Test Negative (Negative)
[2021-04-26 05:02] LABS: Alanine Aminotransferase 17 U/L (0-31); Albumin Level 4.5 g/dL (3.5-5.0); Alkaline Phosphatase 68 U/L (39-117); Anion Gap 12 (12-20); Aspartate Amino Transferase 17 U/L (5-31); Bilirubin Total < 0.2 mg/dL (0.0-1.0); Blood Urea Nitrogen 8 mg/dL (9-16); Calcium 9.3 mg/dL (8.4-10.2); Carbon Dioxide 27 mmol/L (22-29); Chloride 107 mmol/L (96-108); Creatinine Clr Calc Pharmacy 75.7; Estimated Glomerular Filt Rate > 60; Glucose Random 120 mg/dL (60-115); Potassium 4.2 mmol/L (3.3-5.1); Sodium 142 mmol/L (135-145); Total Protein 7.3 g/dL (6.5-8.0)
[2021-04-26 05:52] VITALS: BP 112/66; PULSE 85; RESP 16; TEMP 36.6; O2SAT 99
== END 2021-04-26 05:52 | disposition home or self-care (01) ==
PROVIDERS: Emergency Provider Student in an Organized Health Care Education/Training Program; PCP Hospitalist
DX: F41.9 Anxiety disorder, unspecified (principal); F10.20 Alcohol dependence, uncomplicated; Z79.899 Other long term (current) drug therapy; Z20.822 Contact with and (suspected) exposure to COVID-19
CPT/HCPCS: 36415; 80053; 81003; 81025; 85025; 85379; 87635; 93005; 99283; 99285

== ENCOUNTER 2021-05-29 00:10 | Emergency (ER) | payer BC, SELFPAY ==
--- NOTE | 2021-05-29 | ECG_ITS ---
Test Reason : tachycardia Blood Pressure : / mmHG Vent. Rate : 135 BPM Atrial Rate : 135 BPM P-R Int : 096 ms QRS Dur : 080 ms QT Int : 372 ms P-R-T Axes : 000 030 050 degrees QTc Int : 558 ms Sinus tachycardia with short MS Nonspecific T wave abnormality RSR' or QR pattern in V1 suggests right ventricular conduction delay Nonspecific ST abnormality Abnormal ECG When compared with ECG of 26-APR-2021 03:52, MS interval has decreased Vent. rate has increased BY 55 BPM Referred By: Generic ED Physician Electronically Signed By:ARTURO ESPINOZA MD
[2021-05-29 00:32] VITALS: BP 128/79; PULSE 131; RESP 24; TEMP 36.8; O2SAT 100; BMI 26.2
--- NOTE | 2021-05-29 00:58 | ED_ITS ---
HPI - Anxiety General Chief Complaint: Anxiety Stated Complaint: withdrawal Time Seen by Provider: 05/29/21 00:21 Source: patient and family Mode of arrival: ambulatory Limitations: no limitations History of Present Illness HPI narrative: Comes emergency room complaining of feeling anxious, palpitations, patient crying, hyperverbal, very anxious. Patient states that she has been tapering of Xanax and she is now on Ativan. Patient took Ativan 0.5 mg p.o. prior to arrival. Patient has also history alcoholism, states that she has been sober except for yesterday that she had a few drinks of alcohol celebrating her mother's birthday. Patient denies suicidal homicidal ideation Related Data Home Medications Medication Instructions Recorded Confirmed alprazolam 0.25 mg tablet (Xanax) 0.25 mg PO DAILY 08/03/20 08/03/20 loratadine 10 mg tablet 10 mg PO DAILY 08/03/20 08/03/20 omeprazole 20 mg capsule,delayed 20 mg PO DAILY 08/03/20 08/03/20 release Previous Rx's Medication Instructions Recorded cephalexin 500 mg capsule (Keflex) 500 mg PO Q12H 7 Days #14 cap 08/03/20 lorazepam 0.5 mg tablet (Ativan) 0.5 mg PO DAILY PRN #10 tab 08/03/20 hydroxyzine HCl 25 mg tablet 25 mg PO TID PRN #10 tab 11/29/20 cyclobenzaprine 10 mg tablet 10 mg PO TID PRN #10 tab 12/17/20 Allergies Allergy/AdvReac Type Severity Reaction Status Date / Time No Known Allergies Allergy Verified 04/26/21 02:56 [No Known Allergies*] Review of Systems Review of Systems: Constitutional : No Weight loss, No Fever, No Chills, No Night Sweats, No Fatigue, No Malaise ENT/Mouth : No Hearing loss, No Ear Pain, No Nasal Congestion, No Sinus Pain, No Hoarseness, No sore throat, No Rhinorrhea, No Swallowing Difficulty Eyes: No Eye Pain, No Swelling, No Redness, No Foreign Body, No Discharge, No Vision Changes Cardiovascular : Complaining of feeling anxious and chest pressure, No SOB, No Dyspnea on Exertion, No Orthopnea, No Edema, No Palpitations Respiratory : No Cough, No Sputum, No Wheezing, No Smoke Exposure, No Dyspnea Gastrointestinal : No Nausea, No Vomiting, No Diarrhea, No Constipation, No abdominal Pain, No Hematochezia, No Melena Genitourinary : no irregular bleeding, No Dysuria, No Urinary Frequency, No Hematuria, No Urinary Incontinence, No Urgency, No Flank Pain, No Urinary Flow Changes, No Hesitancy Musculoskeletal : No joint pain, No Myalgias, No Joint Swelling Skin : No Skin Lesions, No rash Neuro : No Weakness, No Numbness, No Paresthesias, No Loss of Consciousness, No Dizziness, No Headache Psych : Complaining of anxiety and panic attack No Depression, No SI/HI/AH/VH, No Social Issues, Heme/Lymph: No Bruising, No Bleeding,No Lymphadenopathy Endocrine : No Polyuria, No Polydipsia, No Temperature Intolerance [facility] Past Medical History Medical History Anxiety Social History Social History Household Members: Spouse Alcohol intake: never Patient Tobacco Use Status: Never used Tobacco Advance Directives: No Advance Directives Information Provided: Yes Patient : No Physical Exam Vital Signs: Vital Signs: Last Vital Signs Temp 98.2 F 05/29/21 00:32 Pulse 131 H 05/29/21 00:32 Resp 24 H 05/29/21 00:32 BP 128/79 05/29/21 00:32 Pulse Ox 100 05/29/21 00:32 Body Mass Index 26.2 Const: Other: Appearance: Alert. Oriented X3. Very anxious, crying Eyes: Pupils equal, round and reactive to light. ENT: Pharynx normal. Neck: Normal inspection. Neck supple. No lymph nodes noted. No crepitus CVS: Normal heart rate and rhythm. Pulses normal. Normal S1 and S2 Respiratory: No respiratory distress. Breath sounds normal. No Wheezing. No rales , hyperventilating Abdomen: Soft and nontender. No rigidity. No distention. Skin: Skin warm and dry. Normal skin color. Normal skin turgor. Extremities: No lower extremity edema. No lower extremity edema. No Lacerations. No Rash Neuro: Oriented X 3. No motor deficit. No sensory deficit. Moving all extermities. No slurred speech. Cranial nerves 2-12 grossly intact Psych: Anxious, crying from seems hyperverbal but able to hold a normal conversation Course Course Course Narrative: Patient states having a panic attack. Patient was given 1 mg of Ativan IM. Patient overall looking better, using her phone. Patient instructed to follow-up with her primary care physician Discharge Plan Discharge Clinical Impression: Acute anxiety Patient Disposition: Home, Self-Care Instructions: Anxiety (ED) Additional Instructions: Please follow-up with your primary care physician tomorrow. If you have any worsening or new symptoms, please return to the emergency room or call 911 Prescriptions: No Action cyclobenzaprine 10 mg tablet 10 mg PO TID PRN (Reason: muscle spasm) Qty: 10 RF: 0 alprazolam [Xanax] 0.25 mg Tablet 0.25 mg PO DAILY RF: 0 omeprazole 20 mg Capsule,Delayed Release(Dr/Ec) 20 mg PO DAILY RF: 0 loratadine 10 mg Tablet 10 mg PO DAILY RF: 0 lorazepam [Ativan] 0.5 mg tablet 0.5 mg PO DAILY PRN (Reason: anxiety) Qty: 10 RF: 0 cephalexin [Keflex] 500 mg capsule 500 mg PO Q12H 7 Days Qty: 14 RF: 0 hydroxyzine HCl 25 mg tablet 25 mg PO TID PRN (Reason: anxiety) Qty: 10 RF: 0
[2021-05-29] MEDS: LORazepam 2 MG/ML VIAL 1 MG IM (01:13)
== END 2021-05-29 02:25 | disposition home or self-care (01) ==
PROVIDERS: Emergency Provider Emergency Medicine
DX: F41.9 Anxiety disorder, unspecified (principal); R07.89 Other chest pain; Z79.899 Other long term (current) drug therapy
CPT/HCPCS: 93005; 96372; 99284; J2060

== ENCOUNTER 2021-09-11 18:01 | Emergency (ER) | payer BC, SELFPAY ==
--- NOTE | ~2021-09-11 | XR_ITS ---
EXAMINATION: XR CHEST CLINICAL INFORMATION: Shortness of breath COMPARISON: 11/30/2019 TECHNIQUE: 2 views of the chest were obtained. FINDINGS: No acute finding. Lung lyle are grossly clear. The cardiac silhouette is within normal limits. The hilar structures do not appear pathologically enlarged. There is no effusion. No infiltrate. XR/XR chest 2V IMPRESSION: No acute finding
--- NOTE | 2021-09-11 18:04 | ECG_ITS ---
Test Reason : CHEST PAIN Blood Pressure : / mmHG Vent. Rate : 096 BPM Atrial Rate : 096 BPM P-R Int : 138 ms QRS Dur : 078 ms QT Int : 356 ms P-R-T Axes : 036 003 -17 degrees QTc Int : 449 ms Normal sinus rhythm Normal ECG When compared with ECG of 29-MAY-2021 00:22, IN interval has increased T wave inversion now evident in Inferior leads Referred By: Generic ED Physician Electronically Signed By:Manish Castro
[2021-09-11 18:11] VITALS: BP 135/86; PULSE 100; RESP 18; TEMP 37; O2SAT 97; BMI 21.8
[2021-09-11 18:34] LABS: MANUAL DIFF FLAG NO
[2021-09-11 18:43] LABS: UPreg QC Valid YES; Urine Pregnancy NEGATIVE (NEGATIVE)
[2021-09-11 18:44] LABS: D Dimer High Sensitivity < 150 NG/ML
[2021-09-11 18:50] LABS: Basophils Percent Auto 0.5 % (0-2); Eosinophils Absolute Auto 0.2 X10*3/uL (0.0-0.4); Eosinophils Percent Auto 3.1 % (0-4); Hematocrit 40.5 % (37.0-47.0); Hemoglobin 13.8 g/dl (12.0-16.0); Imm Gran Abs Auto 0.04 X10*3/uL (0.00-0.03); Imm Gran Pct Auto 0.7 % (0.0-0.4); Lymphocytes Absolute Auto 1.7 X10*3/uL (1.2-4.9); Lymphocytes Percent Auto 28.6 % (20-40); Mean Corpuscular HGB Conc 34.1 g/dl (31.0-35.0); Mean Corpuscular Hemoglobin 30.7 pg (27.0-33.0); Mean Platelet Volume 8.9 fL (9.4-12.3); Monocytes Absolute Auto 0.4 X10*3/uL (0.1-1.2); Monocytes Percent Auto 6.8 % (2-11); Neutrophils Absolute Auto 3.5 x10*3/uL (2.0-8.3); Neutrophils Percent Auto 60.3 % (45-73); Platelet Count 347 X10*3/uL (160-400); Red Cell Distribution Width 11.6 % (11.0-16.0); White Blood Count 5.8 X10*3/uL (4.8-10.8)
[2021-09-11 18:59] LABS: Alanine Aminotransferase 11 U/L (0-31); Albumin Level 4.8 g/dL (3.5-5.0); Alkaline Phosphatase 81 U/L (39-117); Anion Gap 14 (12-20); Aspartate Amino Transferase 19 U/L (5-31); Bilirubin Total 0.4 mg/dL (0.0-1.0); Blood Urea Nitrogen 10 mg/dL (9-16); Calcium 9.9 mg/dL (8.4-10.2); Carbon Dioxide 25 mmol/L (22-29); Chloride 105 mmol/L (96-108); Creatinine Clr Calc Pharmacy 100.5; Estimated Glomerular Filt Rate > 60; Glucose Random 104 mg/dL (60-115); Potassium 3.9 mmol/L (3.3-5.1); Sodium 140 mmol/L (135-145); Total Protein 8.2 g/dL (6.5-8.0)
[2021-09-11 19:05] LABS: Troponin-I High Sensitivity < 3.5 ng/L (<3.5-17.0)
[2021-09-11 19:58] VITALS: BP 112/76; PULSE 89; RESP 20; O2SAT 100
--- NOTE | 2021-09-11 21:17 | PC.NURSE ---
at bedside for primary eval.
--- NOTE | 2021-09-11 21:45 | ED.CHESTPAIN ---
HPI - Chest Pain General Chief Complaint: Chest Pain Stated Complaint: chest pain, SOB Time Seen by Provider: 09/11/21 21:11 Source: patient Mode of arrival: ambulatory History of Present Illness HPI narrative: 26-year-old female with significant past medical history of anxiety and had recently been treated with Xanax and 3 months ago entered a detox program and during her detox was started on gabapentin to manage her symptoms. In addition, patient has a self endorsed strong medical anxiety this undergone PFTs, but states that she is otherwise healthy. In addition, patient has recently recovered from COVID 19 but states that the shortness of breath and chest pain that she is experiencing has been ongoing for over a year. 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 She states she intermittently has feelings of perioral tingling, extremity tingling (bilateral) as well as head fullness. She otherwise states that she checks her blood pressure multiple times throughout the day as well as her oximetry. She has been evaluated several times and currently has a scheduled stress test as well as echocardiogram ordered. Related Data Home Medications Medication Instructions Recorded Confirmed alprazolam 0.25 mg tablet (Xanax) 0.25 mg PO DAILY 08/03/20 08/03/20 loratadine 10 mg tablet 10 mg PO DAILY 08/03/20 08/03/20 omeprazole 20 mg capsule,delayed 20 mg PO DAILY 08/03/20 08/03/20 release Previous Rx's Medication Instructions Recorded cephalexin 500 mg capsule (Keflex) 500 mg PO Q12H 7 Days #14 cap 08/03/20 lorazepam 0.5 mg tablet (Ativan) 0.5 mg PO DAILY PRN #10 tab 08/03/20 hydroxyzine HCl 25 mg tablet 25 mg PO TID PRN #10 tab 11/29/20 cyclobenzaprine 10 mg tablet 10 mg PO TID PRN #10 tab 12/17/20 Allergies Allergy/AdvReac Type Severity Reaction Status Date / Time No Known Allergies Allergy Verified 09/11/21 18:08 [No Known Allergies*] Review of Systems Review of Systems: Pertinent positives and negatives as stated in HPI and 10 point review of systems is otherwise negative. [facility] Past Medical History Source: nursing notes reviewed Medical History Anxiety Social History Social History Household Members: Spouse Alcohol intake: current Patient Tobacco Use Status: Never used Tobacco Advance Directives: No Advance Directives Information Provided: Yes Physical Exam Vital Signs: Vital Signs: Last Vital Signs Temp 98.6 F 09/11/21 18:11 Pulse 89 09/11/21 19:58 Resp 20 09/11/21 19:58 BP 112/76 09/11/21 19:58 Pulse Ox 100 09/11/21 19:58 BMI result Body Mass Index 21.8 VITAL SIGNS: Reviewed. GENERAL: Well developed, well nourished, in no acute distress. HEAD: Normocephalic/atraumatic, EYES: PERRLA, EOMI intact without pain, no nystagmus EARS: Ext canals without abnormality, TMs non-bulging and non-erythematous NOSE: Nares patent bilateral OROPHARYNX: no oral lesions noted, posterior pharynx clear LUNGS: Normal breath sounds. No adventitious sounds or accessory muscle use. SpO2<100> CARDIOVASCULAR: Regular rate and rhythm without noted murmurs, no JVD or lower extremity edema. ABDOMEN: Soft, non-tender, non-distended with bowel sounds. MUSCULOSKELETAL: No tenderness, deformities, or effusions noted on gross inspection. EXTREMITIES: No cyanosis, clubbing or edema. SKIN: Inspection of the skin reveals no rashes NEUROLOGIC: Alert and oriented x 4. Strength and sensation to light touch were grossly intact x 4. Course Course Course Narrative: 26-year-old female with history and clinical presentation consistent with significant anxiety and likely intermittent panic episodes. She was reassured and discussed extensively returning to her therapist to discuss possible medication intervention other than the benzodiazepines that she had been receiving previously. She was reassured that there are new medications as well as combinations that may help the way that she feels. She was reassured that with the prior PFT testing and in review of all investigations today is unlikely to be associated with any lung pathology and that with the pending cardiology testing she can be rest assured that this may be a component of her underlying anxiety. She acknowledges understanding and states feeling better and is otherwise stable for discharge to home. MDM - Chest Pain Lab Data Result diagrams: 09/11/21 18:30 09/11/21 18:30 Labs: Lab Results 09/11/21 09/11/21 09/11/21 Range/Units 18:20 18:30 18:30 WBC 5.8 (4.8-10.8) X10*3/uL RBC 4.50 (4.20-5.50) X10*6/uL Hgb 13.8 (12.0-16.0) g/dl Hct 40.5 (37.0-47.0) % MCV 90.0 (80.0-98.0) fL MCH 30.7 (27.0-33.0) pg MCHC 34.1 (31.0-35.0) g/dl RDW 11.6 (11.0-16.0) % Plt Count 347 (160-400) X10*3/uL MPV 8.9 L (9.4-12.3) fL Immature Gran % (Auto) 0.7 H (0.0-0.4) % Neut % (Auto) 60.3 (45-73) % Lymph % (Auto) 28.6 (20-40) % [place] % (Auto) 6.8 (2-11) % Eos % (Auto) 3.1 (0-4) % Baso % (Auto) 0.5 (0-2) % Lymph # (Auto) 1.7 (1.2-4.9) X10*3/uL [place] # (Auto) 0.4 (0.1-1.2) X10*3/uL Eos # (Auto) 0.2 (0.0-0.4) X10*3/uL Baso # (Auto) 0.0 (0.0-0.2) X10*3/uL Abs Immat Gran (auto) 0.04 H (0.00-0.03) X10*3/uL Absolute Neuts (auto) 3.5 (2.0-8.3) x10*3/uL Absolute Nucleated RBC 0.000 (0.0-0.012) X10*3/uL Nucleated RBC % (auto) 0.0 (0.0-0.2) /100WBC D-Dimer High Sensitivty NG/ML Sodium 140 (135-145) mmol/L Potassium 3.9 (3.3-5.1) mmol/L Chloride 105 (96-108) mmol/L Carbon Dioxide 25 (22-29) mmol/L Anion Gap 14 (12-20) BUN 10 (9-16) mg/dL Creatinine 0.78 (0.5-1.4) mg/dL Estim Creat Clear Calc 100.5 Estimated GFR > 60 Random Glucose 104 (60-115) mg/dL Calcium 9.9 D (8.4-10.2) mg/dL Total Bilirubin 0.4 (0.0-1.0) mg/dL AST 19 (5-31) U/L ALT 11 (0-31) U/L Alkaline Phosphatase 81 (39-117) U/L Troponin I High Sens (<3.5-17.0) ng/L Total Protein 8.2 H (6.5-8.0) g/dL Albumin 4.8 (3.5-5.0) g/dL Urine Test NEGATIVE (NEGATIVE) 09/11/21 09/11/21 Range/Units 18:30 18:30 WBC (4.8-10.8) X10*3/uL RBC (4.20-5.50) X10*6/uL Hgb (12.0-16.0) g/dl Hct (37.0-47.0) % MCV (80.0-98.0) fL MCH (27.0-33.0) pg MCHC (31.0-35.0) g/dl RDW (11.0-16.0) % Plt Count (160-400) X10*3/uL MPV (9.4-12.3) fL Immature Gran % (Auto) (0.0-0.4) % Neut % (Auto) (45-73) % Lymph % (Auto) (20-40) % [place] % (Auto) (2-11) % Eos % (Auto) (0-4) % Baso % (Auto) (0-2) % Lymph # (Auto) (1.2-4.9) X10*3/uL [place] # (Auto) (0.1-1.2) X10*3/uL Eos # (Auto) (0.0-0.4) X10*3/uL Baso # (Auto) (0.0-0.2) X10*3/uL Abs Immat Gran (auto) (0.00-0.03) X10*3/uL Absolute Neuts (auto) (2.0-8.3) x10*3/uL Absolute Nucleated RBC (0.0-0.012) X10*3/uL Nucleated RBC % (auto) (0.0-0.2) /100WBC D-Dimer High Sensitivty < 150 NG/ML Sodium (135-145) mmol/L Potassium (3.3-5.1) mmol/L Chloride (96-108) mmol/L Carbon Dioxide (22-29) mmol/L Anion Gap (12-20) BUN (9-16) mg/dL Creatinine (0.5-1.4) mg/dL Estim Creat Clear Calc Estimated GFR Random Glucose (60-115) mg/dL Calcium (8.4-10.2) mg/dL Total Bilirubin (0.0-1.0) mg/dL AST (5-31) U/L ALT (0-31) U/L Alkaline Phosphatase (39-117) U/L Troponin I High Sens < 3.5 (<3.5-17.0) ng/L Total Protein (6.5-8.0) g/dL Albumin (3.5-5.0) g/dL Urine Test (NEGATIVE) ECG Data ECG #1: Attestation: I personally reviewed and interpreted this ECG as follows: Prior ECG tracings: available for review Interpretation: Normal sinus rhythm, HR-96, no STEMI, CO/QRS/QTC are within normal limits. Discharge Plan Discharge Clinical Impression: Atypical chest pain, Shortness of breath Patient Disposition: Home, Self-Care Instructions: Stress (ED), Panic Disorder (ED), Anxiety (ED) Additional Instructions: 1. Recommend continued follow-up with your scheduled stress test and echocardiogram. 2. Recommend getting rid of your blood pressure machine as well as your pulse oximetry at home, this may contribute to health anxiety. 3. Please follow-up with your primary care provider to further discuss treatment for the anxiety. Return to the ER for worsening symptoms. Prescriptions: No Action cyclobenzaprine 10 mg tablet 10 mg PO TID PRN (Reason: muscle spasm) Qty: 10 0RF alprazolam [Xanax] 0.25 mg Tablet 0.25 mg PO DAILY 0RF omeprazole 20 mg Capsule,Delayed Release(Dr/Ec) 20 mg PO DAILY 0RF loratadine 10 mg Tablet 10 mg PO DAILY 0RF lorazepam [Ativan] 0.5 mg tablet 0.5 mg PO DAILY PRN (Reason: anxiety) Qty: 10 0RF cephalexin [Keflex] 500 mg capsule 500 mg PO Q12H 7 Days Qty: 14 0RF hydroxyzine HCl 25 mg tablet 25 mg PO TID PRN (Reason: anxiety) Qty: 10 0RF Referrals: Deidra Ahumada, CASSANDRA [Primary Care Provider] - 2 days
== END 2021-09-11 22:12 | disposition home or self-care (01) ==
PROVIDERS: Emergency Provider Student in an Organized Health Care Education/Training Program; PCP Nurse Practitioner Family
DX: R07.89 Other chest pain (principal); R06.02 Shortness of breath; F41.9 Anxiety disorder, unspecified
CPT/HCPCS: 36415; 71046; 80053; 81025; 84484; 85025; 85379; 93005; 99283; 99284

== ENCOUNTER 2022-02-12 18:18 | Emergency (ER) | payer BC, SELFPAY ==
[2022-02-12 19:02] VITALS: BP 148/93; PULSE 90; RESP 16; TEMP 36.9; O2SAT 98; BMI 20.9
[2022-02-12 19:29] LABS: MANUAL DIFF FLAG NO
[2022-02-12 19:30] LABS: Basophils Percent Auto 0.5 % (0-2); Eosinophils Absolute Auto 0.2 X10*3/uL (0.0-0.4); Eosinophils Percent Auto 3.2 % (0-4); Hematocrit 39.9 % (37.0-47.0); Hemoglobin 13.5 g/dl (12.0-16.0); Imm Gran Abs Auto 0.01 X10*3/uL (0.00-0.03); Imm Gran Pct Auto 0.2 % (0.0-0.4); Lymphocytes Absolute Auto 1.8 X10*3/uL (1.2-4.9); Lymphocytes Percent Auto 29.2 % (20-40); Mean Corpuscular HGB Conc 33.8 g/dl (31.0-35.0); Mean Corpuscular Hemoglobin 30.7 pg (27.0-33.0); Mean Corpuscular Volume 90.7 fL (80.0-98.0); Mean Platelet Volume 8.5 fL (9.4-12.3); Monocytes Absolute Auto 0.6 X10*3/uL (0.1-1.2); Monocytes Percent Auto 8.8 % (2-11); Neutrophils Absolute Auto 3.7 x10*3/uL (2.0-8.3); Neutrophils Percent Auto 58.1 % (45-73); Platelet Count 317 X10*3/uL (160-400); Red Cell Distribution Width 11.6 % (11.0-16.0); White Blood Count 6.3 X10*3/uL (4.8-10.8)
[2022-02-12 19:36] LABS: Appearance Urine CLEAR; Color Urine STRAW; Glucose Urine UA NEG (NEG); Leukocyte Esterase Urine NEG (NEG); Nitrite Urine NEG (NEG); Specific Gravity - Urine <= 1.005 (1.005-1.025); Urine Blood NEG (NEG); Urine Ketones NEG (NEG); Urine Protein NEG (NEG-TRACE)
[2022-02-12 19:40] LABS: UPreg QC Valid YES; Urine Pregnancy NEGATIVE (NEGATIVE)
[2022-02-12 19:47] LABS: Alanine Aminotransferase 15 U/L (0-31); Albumin Level 4.8 g/dL (3.5-5.0); Alkaline Phosphatase 88 U/L (39-117); Anion Gap 13 (12-20); Aspartate Amino Transferase 19 U/L (5-31); Bilirubin Total 0.2 mg/dL (0.0-1.0); Blood Urea Nitrogen 13 mg/dL (9-16); Calcium 9.3 mg/dL (8.4-10.2); Carbon Dioxide 25 mmol/L (22-29); Chloride 103 mmol/L (96-108); Estimated Glomerular Filt Rate > 60; Glucose Random 87 mg/dL (60-115); Magnesium 2.2 mg/dL (1.6-2.6); Potassium 3.4 mmol/L (3.3-5.1); Sodium 138 mmol/L (135-145); Total Protein 8.1 g/dL (6.5-8.0)
== END 2022-02-12 21:07 | disposition left against medical advice (07) ==
PROVIDERS: Emergency Provider Emergency Medicine
DX: R10.9 Unspecified abdominal pain (principal); R35.0 Frequency of micturition
CPT/HCPCS: 36415; 80053; 81003; 81025; 83735; 85025; 99282; 99283

== ENCOUNTER 2022-02-18 11:27 | Outpatient (REF) | payer BC, SELFPAY ==
[2022-02-18 14:26] LABS: TSH reflex Free T4 1.36 uIU/mL (0.32-4.0)
[2022-02-20 10:12] LABS: Transglutaminase Ab IgG <1.0 U/mL; Transglutaminase IgA <1.0 U/mL
== END 2022-02-18 11:28 | disposition home or self-care (01) ==
LOC: HO.LAB 11:27
PROVIDERS: Visit Provider Physician Assistant
DX: Z13.29 Encounter for screening for other suspected endocrine disorder (principal); R14.0 Abdominal distension (gaseous); L30.9 Dermatitis, unspecified
CPT/HCPCS: 36415; 84443; 86003; 86364

== ENCOUNTER 2022-03-19 11:51 | Emergency (ER) | payer BC, SELFPAY ==
[2022-03-19 12:01] VITALS: BP 129/81; PULSE 100; RESP 16; TEMP 37.1; O2SAT 99; BMI 21.1
[2022-03-19 13:27] LABS: MANUAL DIFF FLAG NO
[2022-03-19 13:29] LABS: Basophils Percent Auto 0.4 % (0-2); Eosinophils Absolute Auto 0.2 X10*3/uL (0.0-0.4); Eosinophils Percent Auto 2.1 % (0-4); Hematocrit 39.5 % (37.0-47.0); Hemoglobin 13.4 g/dl (12.0-16.0); Imm Gran Abs Auto 0.02 X10*3/uL (0.00-0.03); Imm Gran Pct Auto 0.3 % (0.0-0.4); Lymphocytes Absolute Auto 1.7 X10*3/uL (1.2-4.9); Mean Corpuscular HGB Conc 33.9 g/dl (31.0-35.0); Mean Corpuscular Hemoglobin 31.2 pg (27.0-33.0); Mean Corpuscular Volume 92.1 fL (80.0-98.0); Mean Platelet Volume 8.5 fL (9.4-12.3); Monocytes Absolute Auto 0.6 X10*3/uL (0.1-1.2); Monocytes Percent Auto 7.7 % (2-11); Neutrophils Absolute Auto 5.1 x10*3/uL (2.0-8.3); Neutrophils Percent Auto 66.5 % (45-73); Platelet Count 326 X10*3/uL (160-400); Red Blood Count 4.29 X10*6/uL (4.20-5.50); Red Cell Distribution Width 11.6 % (11.0-16.0); White Blood Count 7.6 X10*3/uL (4.8-10.8)
[2022-03-19 13:43] LABS: Anion Gap 15 (12-20); Blood Urea Nitrogen 12 mg/dL (9-16); Calcium 9.3 mg/dL (8.4-10.2); Carbon Dioxide 24 mmol/L (22-29); Chloride 105 mmol/L (96-108); Creatinine Clr Calc Pharmacy 95.9; Estimated Glomerular Filt Rate > 60; Glucose Random 80 mg/dL (60-115); Potassium 4.2 mmol/L (3.3-5.1); Sodium 140 mmol/L (135-145)
== END 2022-03-19 20:23 | disposition left against medical advice (07) ==
PROVIDERS: Emergency Provider Emergency Medicine
DX: R20.0 Anesthesia of skin (principal); R51.9 Headache, unspecified; Z79.899 Other long term (current) drug therapy
CPT/HCPCS: 36415; 80048; 85025; 99281; 99282; 99283

== ENCOUNTER 2022-03-19 18:07 | Emergency (ER) | payer BC, SELFPAY ==
[2022-03-19 18:33] VITALS: BP 131/75; PULSE 95; RESP 16; TEMP 36.6; O2SAT 96; BMI 20.9
== END 2022-03-19 21:50 | disposition left against medical advice (07) ==
PROVIDERS: Emergency Provider Emergency Medicine
DX: R20.0 Anesthesia of skin (principal)
CPT/HCPCS: 99281

== ENCOUNTER 2022-03-21 07:05 | Emergency (ER) | payer BC, SELFPAY ==
--- NOTE | ~2022-03-21 | CT_ITS ---
EXAMINATION: CT ANGIOGRAM HEAD CT ANGIOGRAM NECK CLINICAL INFORMATION: Reason for Exam paresthesias COMPARISON: None. TECHNIQUE: Initial noncontrast field scout imaging of the head and neck was performed. Noncontrast head CT was also performed. Test bolus sequences followed by intravenous administration 70 mL of Omnipaque 350. Helical imaging was performed in the axial plane from the aortic arch to the skull vertex. Delayed postcontrast imaging of the head was also performed. The data was processed at the chief cardiopulmonary technologist's workstation for generation of MIP sequences. Angled MIPs and volume rendered reformatted images were also generated at an offline 3D workstation. Stenoses are assessed in accordance with NASCET criteria unless otherwise indicated. DLP: 2226 mGy-cm This CT examination was performed using dose optimization techniques as appropriate, variously including the following: *Automated exposure control. *Adjustment of mA and/or kV according to patient size (this includes techniques or standardized protocols for targeted exams where dose is matched to indication/reason for exam; i.e. extremities or head). *Use of iterative reconstruction technique. FINDINGS: There is significant motion artifact on the neck portion of the CTA which limits evaluation of much of the cervical course of the vertebral arteries as well as the common carotid arteries. CT Head: Right cochlear implant is in place. Streak artifact related to the external device slightly limits evaluation of the right cerebral hemisphere. There is no evidence of acute intracranial hemorrhage or edematous territorial infarction. There is no abnormal attenuation within the brain parenchyma. Patino-white matter differentiation is preserved. The ventricles are normal in size and configuration. No evidence for obstructive hydrocephalus. No abnormal mass effect or midline shift. No extra-axial fluid collections. No pathologic intra-axial enhancement or regional oligemia. No acute soft tissue or osseous abnormalities. The mastoid air cells and paranasal sinuses are clear. CT Neck: The thyroid gland and remaining cervical soft tissues are within normal limits. No gross abnormality of the cervical spine. CT Upper Chest: The visualized lung apices and upper mediastinum are within normal limits. Neck CTA: Aortic Arch: Normal contour and caliber. Classic 3 vessel branching pattern of the aortic arch. Great Vessel Origins: No significant stenosis of the branch origins. Right Common Carotid Artery: Evaluation is significantly limited due to motion. No definite stenosis Cervical Right Internal Carotid Artery: Normal opacification without focal stenosis or occlusion. Left Common Carotid Artery: Evaluation is significantly limited due to motion. No definite stenosis Cervical Left Internal Carotid Artery: Normal opacification without focal stenosis or occlusion. Cervical Right Vertebral Artery: Evaluation of the proximal and mid cervical course is significantly limited due to motion. No definite stenosis. Cervical Left Vertebral Artery: Evaluation of the proximal and mid cervical course is significantly limited due to motion. No definite stenosis. Brain CTA: Intracranial Internal Carotid Arteries: No focal stenosis or occlusion. Right Anterior Cerebral Artery: Normal A1 segment. Normal opacification of the distal YAJAIRA segments. Left Anterior Cerebral Artery: Normal A1 segment. Normal opacification of the distal YAJAIRA segments. Anterior Communicating Artery: Normal. Right Middle Cerebral Artery: Normal M1 segment of the MCA without focal stenosis or occlusion. Normal arborization of the distal segments. Left Middle Cerebral Artery: Normal M1 segment of the MCA without focal stenosis or occlusion. Normal arborization of the distal segments. Right Vertebral Artery: Normal V4 segment. Left Vertebral Artery: Normal V4 segment. Basilar Artery: Normal without focal stenosis or occlusion. Normal appearance of the proximal superior cerebellar arteries. Right Posterior Cerebral Artery: Normal P1 segment. Normal opacification of the distal STUNNER segments. Left Posterior Cerebral Artery: Normal P1 segment. Normal opacification of the distal STUNNER segments. Normal opacification of the superior sagittal, straight, transverse, and sigmoid sinuses. CT/CT angio head neck IMPRESSION: 1. No acute intracranial abnormality including hemorrhage, mass effect, hydrocephalus, or acute territorial edematous infarction. 2. Motion degraded CTA of the neck which particularly limits evaluation of the common carotid and proximal and mid cervical vertebral arteries. Within this limitation, no arterial high-grade stenosis or large vessel occlusion in the head or neck is identified.
[2022-03-21 07:22] VITALS: BP 116/79; PULSE 89; RESP 19; TEMP 36.6; O2SAT 100; BMI 20.9
--- NOTE | 2022-03-21 09:55 | ED.NEUROSD ---
HPI - Neuro Symptoms/Deficit General Chief Complaint: Neuro Symptoms/Deficit Stated Complaint: numbness all over body/neck pain Time Seen by Provider: 03/21/22 09:55 Source: patient Mode of arrival: ambulatory Limitations: no limitations History of Present Illness HPI Narrative: Patient is a 27 year old female presenting to the emergency department today with chronic finger, face, and feet numbness. Patient states that ever since she got the COVID-19 shot a year ago and ever since then she has had diffuse body numbness, intermittent slurred speech, and balance issues. Patient states that she saw neurology who ordered a head CT but she has not gotten it done yet and would like one done today. Patient denies any current dizziness, lightheadedness, abdominal pain, nausea, vomiting, fever, chills, blurry vision, double vision, loss of vision, chest pain, difficulty breathing, shortness of breath, back pain, night sweats, pain with urination, increased urinary frequency, increased urinary urgency, blood in her urine or stool, syncope or a near syncopal episode, recent trauma or falls, bowel incontinence, bladder incontinence, bowel retention, bladder retention, or any other complaints at this time. Onset (ago): year(s) (1) History of same: Yes Relieving factors: none Exacerbating factors: none Treatments Prior to Arrival: none Related Data Home Medications Medication Instructions Recorded Confirmed loratadine 10 mg tablet 10 mg PO DAILY 08/03/20 02/18/22 omeprazole 20 mg capsule,delayed 20 mg PO DAILY 08/03/20 02/18/22 release gabapentin 100 mg capsule 1,300 mg PO DAILY 03/18/22 Previous Rx's Medication Instructions Recorded gabapentin 400 mg capsule 400 mg PO TID #42 caps 11/18/21 escitalopram oxalate 10 mg tablet 10 mg PO DAILY 90 days #90 tabs 03/18/22 Allergies Allergy/AdvReac Type Severity Reaction Status Date / Time No Known Allergies Allergy Verified 03/18/22 14:28 [No Known Allergies*] Review of Systems Constitutional: Constitutional: Reports no additional constitutional complaints, Denies chills, Denies fever(s) and Denies night sweats Eyes: Eyes: Reports no additional eye complaints, Denies blurry vision, Denies change in vision, Denies diplopia, Denies eye discharge, Denies loss of vision and Denies eye pain ENT: Denies dizziness Cardiovascular: Cardiovascular: Reports no additional cardiovascular complaints, Denies chest pain, Denies lightheadedness, Denies Loss of Consciousness and Denies dyspnea Respiratory: Respiratory: Reports no additional respiratory complaints and Denies dyspnea Gastrointestinal: Gastrointestinal: Reports no additional gastrointestinal complaints, Denies abdominal pain, Denies melena, Denies hematochezia, Denies change in bowel habits and Denies change in stool character Genitourinary: Genitourinary: Denies hematuria, Denies urinary frequency, Denies dysuria, Denies urinary incontinence, Denies urinary hesitancy and Denies urinary urgency Musculoskeletal: Musculoskeletal: Reports no additional musculoskeletal complaints, Reports numbness and Reports tingling Neurologic: Denies dizziness, Denies loss of vision, Reports numbness and Reports tingling Psychiatric: Psychiatric: Reports no additional psychiatric complaints Endocrine: Endocrine: Reports no additional endocrine complaints Hematologic/Lymphatic: Hematologic/Lymphatic: Reports no additional hematologic/lymphatic complaints Allergic/Immunologic: Allergic/Immunologic: Reports no additional allergic/immunologic complaints [facility] Past Medical History Medical History (Updated 03/21/22 @ 12:41 by NOAH Golden) Anxiety Cochlear implant in place Panic attacks Severe anxiety Surgical History No pertinent past surgical history Family History Family History Other Mental health disorder Social History Social History (Updated 03/18/22 @ 14:32 by RAFIA Watts) Household Members: [facility] Alcohol intake: current Alcohol intake frequency: holidays/special occasions only Patient Tobacco Use Status: Never used Tobacco e-Cigarette/Vaping Use: Never Used Second Hand Smoke Exposure: No Use of substances other than those prescribed or required for medical reasons: No Advance Directives: Yes Advance Directives Information Provided: Yes Advance Directives on File: No service: No 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al status: employed Cognitive needs: No Hearing needs: No Vision needs: No Physical Exam Vital Signs: Vital Signs: Last Vital Signs Temp 99.0 F 03/21/22 10:31 Pulse 80 03/21/22 10:31 Resp 18 03/21/22 10:31 BP 116/69 03/21/22 10:31 Pulse Ox 100 03/21/22 10:31 O2 Del Method 03/21/22 10:31 BMI result Body Mass Index 20.9 MDM - Neuro Symptoms/Deficit MDM Narrative Medical decision making narrative: Patient is a 27 year old female presenting to the emergency department today with chronic paresthesias. Patient's physical exam was unremarkable. Patient's blood work was unremarkable. Patient's head CT and CTA of the head and neck showed no acute process. I explained my physical exam findings as well as all test results to the patient. I answered all questions asked by the patient. I stressed the importance of the patient taking her medication as prescribed. I stressed the importance of the patient following up with her primary care provider and neurologist. I stressed the importance of the patient returning to the emergency department immediately if her symptoms were to worsen or if she were to develop any dizziness, shortness of breath, difficulty breathing, chest pain, blurry vision, loss of vision, nausea, vomiting, abdominal pain, fever, chills, back pain, or any other complaints. Patient verbalized agreement and understanding with this treatment plan and discharge. Medical Records Attestation: I reviewed the patient's medical records. Lab Data Attestation: I reviewed the patient's lab results. Result diagrams: 03/21/22 10:24 03/21/22 10:24 Labs: Lab Results 03/21/22 03/21/22 03/21/22 Range/Units 10:24 10:24 10:24 WBC 5.3 (4.8-10.8) X10*3/uL RBC 4.15 L (4.20-5.50) X10*6/uL Hgb 12.7 (12.0-16.0) g/dl Hct 38.3 (37.0-47.0) % MCV 92.3 (80.0-98.0) fL MCH 30.6 (27.0-33.0) pg MCHC 33.2 (31.0-35.0) g/dl RDW 11.5 (11.0-16.0) % Plt Count 287 (160-400) X10*3/uL MPV 8.5 L (9.4-12.3) fL Immature Gran % (Auto) 0.4 (0.0-0.4) % Neut % (Auto) 64.9 (45-73) % Lymph % (Auto) 21.7 (20-40) % Baker % (Auto) 8.3 (2-11) % Eos % (Auto) 4.3 H (0-4) % Baso % (Auto) 0.4 (0-2) % Lymph # (Auto) 1.2 (1.2-4.9) X10*3/uL Baker # (Auto) 0.4 (0.1-1.2) X10*3/uL Eos # (Auto) 0.2 (0.0-0.4) X10*3/uL Baso # (Auto) 0.0 (0.0-0.2) X10*3/uL Abs Immat Gran (auto) 0.02 (0.00-0.03) X10*3/uL Absolute Neuts (auto) 3.5 (2.0-8.3) x10*3/uL Absolute Nucleated RBC 0.000 (0.0-0.012) X10*3/uL Nucleated RBC % (auto) 0.0 (0.0-0.2) /100WBC ESR 6 (0-20) MM/HR Sodium 140 (135-145) mmol/L Potassium 5.1 D (3.3-5.1) mmol/L Chloride 107 (96-108) mmol/L Carbon Dioxide 23 (22-29) mmol/L Anion Gap 15 (12-20) BUN 11 (9-16) mg/dL Creatinine 0.78 (0.5-1.4) mg/dL Estim Creat Clear Calc 99.0 Estimated GFR > 60 Random Glucose 108 (60-115) mg/dL Calcium 9.0 (8.4-10.2) mg/dL Magnesium 2.2 (1.6-2.6) mg/dL Total Bilirubin 0.3 (0.0-1.0) mg/dL AST 18 (5-31) U/L ALT 18 (0-31) U/L Alkaline Phosphatase 80 (39-117) U/L C-Reactive Protein 0.07 (< or = 0.50) mg/dL Total Protein 7.4 (6.5-8.0) g/dL Albumin 4.3 (3.5-5.0) g/dL Beta HCG, Quant < 2 mIU/mL Imaging Data CTA head and neck: Attestation: I personally reviewed and interpreted this imaging study as follows: My impression: No acute process. Radiologist's impression: EXAMINATION: CT ANGIOGRAM HEAD CT ANGIOGRAM NECK CLINICAL INFORMATION: Reason for Exam paresthesias COMPARISON: None. TECHNIQUE: Initial noncontrast business account specialist imaging of the head and neck was performed. Noncontrast head CT was also performed. Test bolus sequences followed by intravenous administration 70 mL of Omnipaque 350. Helical imaging was performed in the axial plane from the aortic arch to the skull vertex. Delayed postcontrast imaging of the head was also performed. The data was processed at the lead neurodiagnostic technologist's workstation for generation of MIP sequences. Angled MIPs and volume rendered reformatted images were also generated at an offline 3D workstation. Stenoses are assessed in accordance with NASCET criteria unless otherwise indicated. DLP: 2226 mGy-cm This CT examination was performed using dose optimization techniques as appropriate, variously including the following: *Automated exposure control. *Adjustment of mA and/or kV according to patient size (this includes techniques or standardized protocols for targeted exams where dose is matched to indication/reason for exam; i.e. extremities or head). *Use of iterative reconstruction technique. FINDINGS: There is significant motion artifact on the neck portion of the CTA which limits evaluation of much of the cervical course of the vertebral arteries as well as the common carotid arteries. CT Head: Right cochlear implant is in place. Streak artifact related to the external device slightly limits evaluation of the right cerebral hemisphere. There is no evidence of acute intracranial hemorrhage or edematous territorial infarction. There is no abnormal attenuation within the brain parenchyma. Patino-white matter differentiation is preserved. The ventricles are normal in size and configuration. No evidence for obstructive hydrocephalus. No abnormal mass effect or midline shift. No extra-axial fluid collections. No pathologic intra-axial enhancement or regional oligemia. No acute soft tissue or osseous abnormalities. The mastoid air cells and paranasal sinuses are clear. CT Neck: The thyroid gland and remaining cervical soft tissues are within normal limits. No gross abnormality of the cervical spine. CT Upper Chest: The visualized lung apices and upper mediastinum are within normal limits. Neck CTA: Aortic Arch: Normal contour and caliber. Classic 3 vessel branching pattern of the aortic arch. Great Vessel Origins: No significant stenosis of the branch origins. Right Common Carotid Artery: Evaluation is significantly limited due to motion. No definite stenosis Cervical Right Internal Carotid Artery: Normal opacification without focal stenosis or occlusion. Left Common Carotid Artery: Evaluation is significantly limited due to motion. No definite stenosis Cervical Left Internal Carotid Artery: Normal opacification without focal stenosis or occlusion. Cervical Right Vertebral Artery: Evaluation of the proximal and mid cervical course is significantly limited due to motion. No definite stenosis. Cervical Left Vertebral Artery: Evaluation of the proximal and mid cervical course is significantly limited due to motion. No definite stenosis. Brain CTA: Intracranial Internal Carotid Arteries: No focal stenosis or occlusion. Right Anterior Cerebral Artery: Normal A1 segment. Normal opacification of the distal YAJAIRA segments. Left Anterior Cerebral Artery: Normal A1 segment. Normal opacification of the distal YAJAIRA segments. Anterior Communicating Artery: Normal. Right Middle Cerebral Artery: Normal M1 segment of the MCA without focal stenosis or occlusion. Normal arborization of the distal segments. Left Middle Cerebral Artery: Normal M1 segment of the MCA without focal stenosis or occlusion. Normal arborization of the distal segments. Right Vertebral Artery: Normal V4 segment. Left Vertebral Artery: Normal V4 segment. Basilar Artery: Normal without focal stenosis or occlusion. Normal appearance of the proximal superior cerebellar arteries. Right Posterior Cerebral Artery: Normal P1 segment. Normal opacification of the distal PARISH VISITOR segments. Left Posterior Cerebral Artery: Normal P1 segment. Normal opacification of the distal PARISH VISITOR segments. Normal opacification of the superior sagittal, straight, transverse, and sigmoid sinuses. CT/CT angio head neck IMPRESSION: ? 1.? No acute intracranial abnormality including hemorrhage, mass effect, hydrocephalus, or acute territorial edematous infarction. ? 2.? Motion degraded CTA of the neck which particularly limits evaluation of the common carotid and proximal and mid cervical vertebral arteries. Within this limitation, no arterial high-grade stenosis or large vessel occlusion in the head or neck is identified. Dictated By: Kings Payen Signed By: Electronically signed by Juan 03/21/22 5213 Discharge Plan Discharge Clinical Impression: Paresthesia Patient Disposition: Home, Self-Care Instructions: Paresthesia (ED) Additional Instructions: Follow up with your primary care provider and your neurologist. Return to the emergency department immediately if your symptoms worsen or if you develop any dizziness, shortness of breath, difficulty breathing, chest pain, blurry vision, loss of vision, nausea, vomiting, abdominal pain, fever, chills, back pain, or any other complaints. Prescriptions: No Action omeprazole 20 mg Capsule,Delayed Release(Dr/Ec) 20 mg PO DAILY loratadine 10 mg Tablet 10 mg PO DAILY escitalopram oxalate 10 mg tablet 10 mg PO DAILY 90 Days Qty: 90 1RF gabapentin 400 mg capsule 400 mg PO TID Qty: 42 0RF gabapentin 100 mg capsule 1,300 mg PO DAILY Referrals: [facility] [place] Family Medicine [Provider Group] (Call to follow up and establish with a primary care provider. If you already have a primary care provider, please follow up with them. ) [facility] [place] Primary Care, Emma [Provider Group] (Call to follow up and establish with a primary care provider. If you already have a primary care provider, please follow up with them. ) [facility] [place] Primary Care,Jose Armando [Provider Group] (Call to follow up and establish with a primary care provider. If you already have a primary care provider, please follow up with them. ) Interventions: ED Discharge Assessment Last Done: 03/21/22 12:58 Discharge Date/Time: 03/21/22 12:58 Print Language: Citizen [place]
[2022-03-21 10:28] LABS: MANUAL DIFF FLAG NO
[2022-03-21 10:30] LABS: Basophils Percent Auto 0.4 % (0-2); Eosinophils Absolute Auto 0.2 X10*3/uL (0.0-0.4); Eosinophils Percent Auto 4.3 % (0-4); Hematocrit 38.3 % (37.0-47.0); Hemoglobin 12.7 g/dl (12.0-16.0); Imm Gran Abs Auto 0.02 X10*3/uL (0.00-0.03); Imm Gran Pct Auto 0.4 % (0.0-0.4); Lymphocytes Absolute Auto 1.2 X10*3/uL (1.2-4.9); Lymphocytes Percent Auto 21.7 % (20-40); Mean Corpuscular HGB Conc 33.2 g/dl (31.0-35.0); Mean Corpuscular Hemoglobin 30.6 pg (27.0-33.0); Mean Corpuscular Volume 92.3 fL (80.0-98.0); Mean Platelet Volume 8.5 fL (9.4-12.3); Monocytes Absolute Auto 0.4 X10*3/uL (0.1-1.2); Monocytes Percent Auto 8.3 % (2-11); Neutrophils Absolute Auto 3.5 x10*3/uL (2.0-8.3); Neutrophils Percent Auto 64.9 % (45-73); Platelet Count 287 X10*3/uL (160-400); Red Blood Count 4.15 X10*6/uL (4.20-5.50); Red Cell Distribution Width 11.5 % (11.0-16.0); White Blood Count 5.3 X10*3/uL (4.8-10.8)
[2022-03-21 10:31] VITALS: BP 116/69; PULSE 80; RESP 18; TEMP 37.2; O2SAT 100
[2022-03-21 10:48] LABS: Alanine Aminotransferase 18 U/L (0-31); Albumin Level 4.3 g/dL (3.5-5.0); Alkaline Phosphatase 80 U/L (39-117); Anion Gap 15 (12-20); Aspartate Amino Transferase 18 U/L (5-31); Bilirubin Total 0.3 mg/dL (0.0-1.0); Blood Urea Nitrogen 11 mg/dL (9-16); C Reactive Protein 0.07 mg/dL (< or = 0.50); Carbon Dioxide 23 mmol/L (22-29); Chloride 107 mmol/L (96-108); Estimated Glomerular Filt Rate > 60; Glucose Random 108 mg/dL (60-115); Magnesium 2.2 mg/dL (1.6-2.6); Potassium 5.1 mmol/L (3.3-5.1); Sodium 140 mmol/L (135-145); Total Protein 7.4 g/dL (6.5-8.0)
[2022-03-21 11:04] LABS: Erythrocyte Sedimentation Rate 6 MM/HR (0-20)
[2022-03-21 11:15] LABS: HCG Quantitative < 2 mIU/mL
[2022-03-21] MEDS: iohexoL 350 MG/ML 100 ML INFUS..BTL IV (11:36)
[2022-03-23 19:56] LABS: A. Phagocytphilium DNA,RT-PCR NOT DETECTED (NOT DETECTED); Babesia Microti DNA, RT-PCR NOT DETECTED (NOT DETECTED); Borrelia Miyamotoi,DNA RT-PCR NOT DETECTED (NOT DETECTED); E.Chaffeensis DNA RT-PCR NOT DETECTED (NOT DETECTED); Lyme(Borrelia ssp)DNA RT-PCR NOT DETECTED (NOT DETECTED)
[2022-03-24 14:08] LABS: Source-Tick borne disease BLOOD
[2022-03-24 14:46] LABS: Anti Nuclear Antibody Screen NEGATIVE (NEGATIVE)
== END 2022-03-21 12:58 | disposition home or self-care (01) ==
PROVIDERS: Physician Assistant Medical; Emergency Provider Emergency Medicine
DX: R20.2 Paresthesia of skin (principal); Z79.899 Other long term (current) drug therapy
CPT/HCPCS: 36415; 70496; 70498; 80053; 83735; 84702; 85025; 85652; 86038; 86039; 86140; 87798; 87801; 99284; Q9967

== ENCOUNTER 2022-04-13 09:41 | Day surgery (SDC) | payer BC, SELFPAY ==
[2022-04-13] VITALS (7 sets, daily range): BP systolic 97–124; BP diastolic 62–72; PULSE 72–92; RESP 16–18; TEMP 36.3–36.6; O2SAT 96–98; BMI 20.9
--- NOTE | ~2022-04-13 | FL_ITS ---
EXAMINATION: FL-GUIDED LUMBAR PUNCTURE CLINICAL INFORMATION: Anesthesia of skin, weakness and extremities. Question Lyme disease versus multiple sclerosis. COMPARISON: None TECHNIQUE: Following explaining fluoroscopy-guided lumbar puncture procedure, benefits and risk, a written consent was obtained. Patient was placed prone on fluoroscopy table and low back area was cleaned and draped in the usual sterile manner. A skin marker was placed at the L4-L5 disc level initially. 1% lidocaine was inserted at the marked skin site. A 22-gauge spinal needle was then inserted at the L4-L5 disc level. Patient was placed in left lateral decubitus view and opening CSF pressure was obtained following removal of stylet. CSF fluid was then collected in 4 test tubes. Postprocedure stylet was reintroduced and needle withdrawn. Complete hemostasis achieved at puncture site. Sterile Band-Aid applied postprocedure. Patient tolerated the procedure extremely well. FINDINGS: On preliminary PA and lateral views, the visualized vertebral heights, alignment and disc heights are normal. No bony abnormality seen. The needle is positioned at the L4-L5 disc level. The opening CSF pressure measures 8.2 cm of water. Approximately 10.5 mL of clear CSF fluid was collected in 4 test tubes and sent to lab as per physician request. FLUOROSCOPY TIME: 0.5 minutes DOSE AREA PRODUCT: 2.496 Gy-cm2 FL/FL guided lumbar puncture LP IMPRESSION: Successful fluoroscopy-guided lumbar puncture performed.
[2022-04-13 10:28] LABS: MANUAL DIFF FLAG NO
[2022-04-13 10:29] LABS: Basophils Percent Auto 0.2 % (0-2); Eosinophils Absolute Auto 0.1 X10*3/uL (0.0-0.4); Eosinophils Percent Auto 1.6 % (0-4); Hematocrit 38.5 % (37.0-47.0); Imm Gran Abs Auto 0.04 X10*3/uL (0.00-0.03); Imm Gran Pct Auto 0.5 % (0.0-0.4); Lymphocytes Absolute Auto 1.4 X10*3/uL (1.2-4.9); Lymphocytes Percent Auto 15.8 % (20-40); Mean Corpuscular HGB Conc 33.8 g/dl (31.0-35.0); Mean Corpuscular Hemoglobin 31.2 pg (27.0-33.0); Mean Corpuscular Volume 92.3 fL (80.0-98.0); Mean Platelet Volume 8.4 fL (9.4-12.3); Monocytes Absolute Auto 0.8 X10*3/uL (0.1-1.2); Monocytes Percent Auto 8.5 % (2-11); Neutrophils Absolute Auto 6.5 x10*3/uL (2.0-8.3); Neutrophils Percent Auto 73.4 % (45-73); Platelet Count 257 X10*3/uL (160-400); Red Blood Count 4.17 X10*6/uL (4.20-5.50); Red Cell Distribution Width 11.5 % (11.0-16.0); White Blood Count 8.8 X10*3/uL (4.8-10.8)
[2022-04-13 10:48] LABS: INTERNATIONAL NORM RATIO 0.9 (0.9-1.1); Prothrombin Time 10.7 SEC (10.0-13.1)
[2022-04-13 10:50] LABS: UPreg QC Valid YES; Urine Pregnancy NEGATIVE (NEGATIVE)
[2022-04-13 10:51] LABS: Partial Thromboplastin Time 32.2 SEC (26.0-36.4)
--- NOTE | 2022-04-13 11:18 | PC.NURSE ---
Dr. Marin aware that patient c/o boil on left upper thight. author assessed - is approx. size of half dollar. not warm to touch. hard to touch. not draining. no redness around exterior.
[2022-04-13] MEDS: Acetaminophen 325 MG TABLET 650 MG PO (13:35)
[2022-04-13 14:07] LABS: Glucose CSF 56 mg/dL; Total Protein CSF 37.5 mg/dL (15-45)
[2022-04-13 14:14] LABS: Appearance CSF CLEAR; CSF Monos 8 %; CSF Tube # 1; Lymphocytes CSF 92 %
[2022-04-13 14:15] LABS: CSF Volume 2.5 ML; Color CSF COLORLESS
[2022-04-13 14:17] LABS: Red Blood Cell CSF 7 MM*3; White Blood Cell CSF 1 MM*3
[2022-04-13 14:30] LABS: CSF Appearance Clear, Colorless; CSF Tube # 1
[2022-04-13 14:46] LABS: CSF Monos 14 %; Lymphocytes CSF 86 %
[2022-04-13 14:47] LABS: Appearance CSF CLEAR; CSF Tube # 4; CSF Volume 3.5 ML; Color CSF COLORLESS; Red Blood Cell CSF 0 MM*3; White Blood Cell CSF 2 MM*3
[2022-04-14 07:59] LABS: Oligoclonal Serum Yes
[2022-04-15 22:42] LABS: Lyme (B. burgdorferi) PCR NOT DETECTED (NOT DETECTED)
[2022-04-16 12:17] LABS: Albumin 4.6 g/dL (3.5-5.2); Albumin, CSF 18.5 mg/dL (8.0-42.0); IgG 1310 mg/dL (600-1640); IgG Synthesis Rate -1.3 mg/24 h (-9.9-3.3); IgG, CSF 3.1 mg/dL (0.8-7.7)
[2022-04-20 14:16] LABS: Lyme IgG CSF Immunoblot NO BANDS DETECTED; Lyme IgM CSF Immunoblot NO BANDS DETECTED
[2022-04-22 13:15] LABS: Total Protein, CSF 38
[2022-04-22 13:16] LABS: Albumin, CSF 62.5; Alpha-1-Globulin,CSF 4.8; Prealbumin, CSF 3.6
[2022-04-22 13:18] LABS: Gamma Globulin 9.1
[2022-04-25 15:32] LABS: Hu Antibody Screen, CSF NEGATIVE (NEGATIVE)
== END 2022-04-13 15:45 | disposition home or self-care (01) ==
PROVIDERS: Nurse Practitioner Family; Visit Provider Radiology Diagnostic Radiology
PROC: 009U3ZZ Drainage of Spinal Canal, Percutaneous Approach (ICD-10-PCS; CPT 62270; principal; 2022-04-13 11:00)
DX: R20.0 Anesthesia of skin (principal); R20.2 Paresthesia of skin; R53.1 Weakness; G43.909 Migraine, unspecified, not intractable, without status migrainosus; F41.9 Anxiety disorder, unspecified; Z79.899 Other long term (current) drug therapy
CPT/HCPCS: 36415; 62328; 81025; 82042; 82945; 83916; 84157; 84166; 84181; 85025; 85610; 85730; 86255; 86256; 86617; 87476; 89051

== ENCOUNTER 2022-05-29 15:58 | Outpatient (REF) | payer BC, SELFPAY ==
[2022-06-01 18:27] LABS: Thyroid Peroxidase Antibodies <1 IU/mL (<9)
== END 2022-05-29 15:59 | disposition home or self-care (01) ==
LOC: HO.LAB 15:58
PROVIDERS: PCP Nurse Practitioner Family; Visit Provider Nurse Practitioner Family
DX: R53.83 Other fatigue (principal)
CPT/HCPCS: 36415; 86376

== ENCOUNTER → 2022-06-08 14:01 | Outpatient (REF) | payer BC, SELFPAY | LOC: HO.SL 14:01 | PROVIDERS: Visit Provider Nurse Practitioner Family | DX: G47.19 Other hypersomnia (principal); R06.83 Snoring; R06.00 Dyspnea, unspecified | CPT/HCPCS: 95806 ==

== ENCOUNTER → 2022-06-25 10:06 | Outpatient (BNVA) | payer BC, SELFPAY | PROVIDERS: PCP Nurse Practitioner Family; Visit Provider Nurse Practitioner Family | DX: R06.83 Snoring (principal); G47.19 Other hypersomnia; R20.2 Paresthesia of skin; R20.0 Anesthesia of skin | CPT/HCPCS: 0241U ==

== ENCOUNTER 2023-04-23 07:41 | Outpatient (REF) | payer BC, SELFPAY ==
[2023-04-23 07:55] LABS: MANUAL DIFF FLAG NO
[2023-04-23 09:23] LABS: Basophils Percent Auto 0.2 % (0-2); Eosinophils Absolute Auto 0.2 X10*3/uL (0.0-0.4); Eosinophils Percent Auto 4.1 % (0-4); Hematocrit 38.5 % (37.0-47.0); Hemoglobin 12.7 g/dl (12.0-16.0); Imm Gran Abs Auto 0.01 X10*3/uL (0.00-0.03); Imm Gran Pct Auto 0.2 % (0.0-0.4); Lymphocytes Absolute Auto 1.3 X10*3/uL (1.2-4.9); Lymphocytes Percent Auto 31.5 % (20-40); Mean Platelet Volume 9.1 fL (9.4-12.3); Monocytes Absolute Auto 0.5 X10*3/uL (0.1-1.2); Monocytes Percent Auto 11.1 % (2-11); Neutrophils Absolute Auto 2.2 x10*3/uL (2.0-8.3); Neutrophils Percent Auto 52.9 % (45-73); Platelet Count 324 X10*3/uL (160-400); Red Blood Count 4.23 X10*6/uL (4.20-5.50); Red Cell Distribution Width 11.5 % (11.0-16.0); White Blood Count 4.2 X10*3/uL (4.8-10.8)
[2023-04-23 10:29] LABS: Alanine Aminotransferase 16 U/L (0-31); Albumin Level 4.4 g/dL (3.5-5.0); Alkaline Phosphatase 72 U/L (39-117); Anion Gap 14 (12-20); Aspartate Amino Transferase 18 U/L (5-31); Bilirubin Total 0.3 mg/dL (0.0-1.0); Blood Urea Nitrogen 12 mg/dL (9-16); Calcium 9.1 mg/dL (8.4-10.2); Carbon Dioxide 24 mmol/L (22-29); Chloride 107 mmol/L (96-108); Cholesterol 212 mg/dL (<200); Estimated Glomerular Filt Rate > 60; Glucose Fasting 100 mg/dL (60-99); HDL Cholesterol 60 mg/dL (>40); LDL Cholesterol Calculated 138 mg/dL (<100); Magnesium 2.2 mg/dL (1.6-2.6); Potassium 4.1 mmol/L (3.3-5.1); Sodium 141 mmol/L (135-145); Total Protein 7.4 g/dL (6.5-8.0); Triglycerides 73 mg/dL (<150)
[2023-04-23 10:45] LABS: TSH reflex Free T4 1.83 uIU/mL (0.32-4.0); Vitamin D 25-OH Total 39.8 ng/mL (>30)
[2023-04-23 10:52] LABS: Folate 6.3 ng/mL (> or = 4.0); Vitamin B12 354 pg/mL (200-900)
== END 2023-04-23 07:42 | disposition home or self-care (01) ==
LOC: HO.LAB 07:41
PROVIDERS: PCP Nurse Practitioner Family; Visit Provider Nurse Practitioner Family
DX: Z00.00 Encounter for general adult medical examination without abnormal findings (principal); M25.50 Pain in unspecified joint; R53.83 Other fatigue; G43.909 Migraine, unspecified, not intractable, without status migrainosus; R20.0 Anesthesia of skin; R20.2 Paresthesia of skin
CPT/HCPCS: 36415; 80053; 80061; 82306; 82607; 82746; 83735; 84443; 85025

== ENCOUNTER 2023-04-23 11:01 | Outpatient (AMB) | payer BC, SELFPAY ==
[2023-04-23 11:02] VITALS: BP 112/70; PULSE 99; O2SAT 99
--- NOTE | 2023-04-23 11:02 | A.OFFPC_ITS ---
Vital Signs 04/23/23 11:02 Height 5 ft 6 in BP 112/70 Blood Pressure Location Lt brachial Position Sitting Pulse 99 Pulse Source Pulse Oximeter Temp Source Skin Pulse Oximetry (%) 99 Oxygen Delivery Method Room Air Intake Visit Reasons: Follow up on labs Dedicated Driver Required: No Allergies No Known Allergies [No Known Allergies*] Allergy (Verified 04/23/23 11:17) Medication List - Last Reconciled 04/23/23 by WARREN Up cholecalciferol (vitamin D3) 50 mcg PO DAILY gabapentin 400 mg PO TID 30 days gabapentin 100 mg PO DAILY 30 days loratadine 10 mg PO DAILY magnesium 250 mg PO DAILY omeprazole 20 mg PO DAILY Tobacco use date assessed: 04/23/23 Dental Screening Dental Screen Date: 04/23/23 Did you have a dental visit in the last 12 months?: Yes Did you have a dental problem in the last 6 months where you did not have access to dental care?: No Was dental information given to patient?: Patient has dentist HPI Follow up on labs HPI Details Patient is a 28-year-old female who presents today to follow-up on her labs. Medical history significant for anxiety, panic attacks, facial paresthesia-followed by [place] neurology, numbness and tingling in limbs - followed by [place] neurolog[facility]-plan for nerve studies-patient reports unable to follow-up due to work schedule, migraines-managed with [id number] medications. Patient has psychiatry Dr. Rosa in [place] who prescribes gabapentin for anxiety. Patient also has therapist although she is unable to follow with them due to work hours. Patient denies shortness of breath or chest pain. Patient reports she does not need help with alcohol cessation. Recent blood work from 04/2023 with no acute findings, results reviewed with the silvestre nt. In addition, patient reports intermittent multiple joints pains for some time now and would like to be tested for autoimmune etiology. [facility] Medical History Acute bronchitis Open wound of right knee Cellulitis of buttock, left Cochlear implant in place Encounter to establish care Panic attacks Severe anxiety Anxiety Surgical History No pertinent past surgical history Family History Other Mental health disorder Social History Household Members: Spouse Housing: Condominium Alcohol intake: current Alcohol intake frequency: holidays/special occasions only Patient Tobacco Use Status: Never used Tobacco e-Cigarette/Vaping Use: Never Used Second Hand Smoke Exposure: No service: No 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al status: employed Cognitive needs: No Hearing needs: No Vision needs: No Questionnaire Thrive Questionnaire Date Thrive assessed: 12/18/22 AUDIT C Alcohol Use Questionnaire (AUDIT-C) 1. How often do you have a drink containing alcohol?: 2-4 times a month 2. How many drinks containing alcohol do you have on a typical day when you are drinking?: 5 or 6 3. How often do you have six or more drinks on one occasion?: Never Total Score: 4 Score Reviewed/Action Taken: Yes ROMY-7 AMB Questionnaire ROMY-7 Date ROMY - 7 assessed: 12/18/22 Feeling nervous, anxious, or on edge: 0 = Not at all Not being able to stop or control worryin = Not at all Worrying too much about different things: 0 = Not at all Trouble relaxin = Not at all Being so restless that it is hard to sit still: 0 = Not at all Becoming easily annoyed or irritable: 0 = Not at all Feeling afraid as if something awful might happen: 0 = Not at all Total ROMY-7 score (0-4 normal; 5-9 mild; 10-14 moderate; 15-21 severe): 0 Source: Developed by Drs. Spencer Gimenez, Rosanne Gonzalez, Boaz Ford and colleagues, with an educational jose r from [employer]. ROMY-7 Assessment Billing ROMY-7 Assessment Tool: ROMY-7 Assessment 15509 Review of Systems Const Denies body aches, Denies chills, Reports fatigue, Denies fever(s) and Denies headache(s) Eyes Denies change in vision ENT Denies dizziness, Denies otalgia, Denies headache(s), Denies nasal discharge, Denies sinus pain and Denies sore throat Card Denies chest pain, Denies edema, Denies lightheadedness and Denies dyspnea Resp Denies chest congestion, Denies cough and Denies dyspnea GI Denies constipation, Denies diarrhea, Denies nausea and Denies vomiting Denies dysuria Musc Reports as per HPI, Denies myalgias, Reports numbness and Reports tingling Skin/Breast Denies lesions and Denies rash Neuro Denies dizziness, Denies headache(s), Reports numbness and Reports tingling Endo Reports fatigue Physical exam (Primary Care) Vital Signs: Last Vital Signs Pulse 99 04/23/23 11:02 BP 112/70 04/23/23 11:02 Pulse Ox 99 04/23/23 11:02 Oxygen Delivery Method Room Air 04/23/23 11:02 Tobacco/Smoking Status: Tobacco use Status Tobacco use date assessed 04/23/23 04/23/23 11:03 Patient Tobacco Use Status Never used Tobacco 04/23/23 11:03 e-Cigarette/Vaping Use Never Used 04/23/23 11:03 Thrive Assessment: Date of Thrive Assessment Date Thrive assessed 12/18/22 04/23/23 11:03 Const General: cooperative and no acute distress Orientation/consciousness: patient oriented x3 HENMT Head: Yes normocephalic and Yes atraumatic Face and sinus: Yes sinuses nontender Mouth: oropharynx normal and moist mucous membranes Throat: Yes posterior oropharynx normal Eyes General: appearance normal, both eyes and all related structures Neck Neck: Yes normal visual inspection, Yes full ROM and Yes no lymphadenopathy Resp Effort & Inspection: normal respiratory effort and able to speak in complete sentences Auscultation: clear to auscultation bilaterally, no crackles, no rales, no rhonchi and no wheezes Cardio Rate: regular rate Rhythm: regular rhythm Heart sounds: S1 normal heart sound present, S2 normal heart sound present and no murmurs GI Auscultation: normal bowel sounds Skin General skin exam: no rashes or lesions noted Neuro General: patient oriented x3 and CN's II-XI intact bilaterally Gait exam (Neuro): Normal gait present Extrem General: Yes full ROM and No edema Assessment and Plan Assessment & Plan (1) Migraine: Code(s): G43.909 - Migraine, unspecified, not intractable, without status migrainosus Plan: Stable with [id number] medications as needed Signs and symptoms reviewed when to notify provider or go to the emergency department (2) Facial paresthesia: Code(s): R20.2 - Paresthesia of skin Plan: Continue to follow-up with [place] neurology (3) Severe anxiety: Code(s): F41.9 - Anxiety disorder, unspecified Plan: Continue to follow-up with Psychiatry Dr. Rosa in [place] who prescribes gabapentin Patient also has therapist although unable to see them due to work schedule (4) GERD (gastroesophageal reflux disease): Code(s): K21.9 - Gastro-esophageal reflux disease without esophagitis Plan: Stable with omeprazole 20 mg daily Avoid GERD trigger foods Do not lay down 2-3 hours after evening meal (5) Polyarthralgia: Code(s): M25.50 - Pain in unspecified joint Plan: TED and rheumatoid factor ordered Plan Keep appointment with PCP as scheduled or follow-up sooner as needed Orders: Orders TED Reflex Titer and Pattern 04/23/23 M25.50 - Pain in unspecified joint Rheumatoid Factor 04/23/23 M25.50 - Pain in unspecified joint Coding Level of Care Code Est Pt Level 3 (19553) Diagnoses Migraine G43.909 Facial paresthesia R20.2 Severe anxiety F41.9 GERD (gastroesophageal reflux disease) K21.9 Polyarthralgia M25.50 Additional Codes ROMY-7 Assessment Billing - ROMY-7 Assessment Tool: ROMY-7 Assessment 12321 ([id number])
== END 2023-04-23 11:36 | disposition home or self-care (01) ==
PROVIDERS: PCP Nurse Practitioner Family; Visit Provider Nurse Practitioner Family
DX: G43.909 Migraine, unspecified, not intractable, without status migrainosus (principal); R20.2 Paresthesia of skin; F41.9 Anxiety disorder, unspecified; K21.9 Gastro-esophageal reflux disease without esophagitis; M25.50 Pain in unspecified joint
CPT/HCPCS: 99213

== ENCOUNTER 2023-05-11 15:01 | Outpatient (AMB) | payer BC, SELFPAY ==
--- NOTE | 2023-05-11 15:17 | MHC.OFFVIS ---
Intake Vital Signs 05/11/23 15:20 Height 5 ft 6 in BP 112/76 Blood Pressure Location Rt brachial Position Sitting Pulse 83 Pulse Source Pulse Oximeter Pulse Oximetry (%) 99 Oxygen Delivery Method Room Air Intake Visit Reasons: URGENT follow up Intake Note: Patient presents for urgent follow up. Patient states On wednesday morning I woke up with severe dizziness, I feel like its coming from the right side of my face and mouth Allergies No Known Allergies [No Known Allergies*] Allergy (Verified 05/11/23 15:20) Medication List - Last Reconciled 05/11/23 by WARREN [place] cholecalciferol (vitamin D3) 50 mcg PO DAILY gabapentin 400 mg PO TID 30 days gabapentin 100 mg PO DAILY 30 days loratadine 10 mg PO DAILY magnesium 250 mg PO DAILY omeprazole 20 mg PO DAILY HPI HPI Comments History of Present Illness Details 28-yr-old female presents for urgent f/u- last seen Jun 2022. Pt reports she woke up 3 nights ago- turned her head and had room spinning dizziness, ear ringing. She could not walk, had to crawl. Since, she has had intermittent room spinning dizziness w/ head movement. She has had right sided head pressure, ear fullness x's past 1-2 days. Denies recent fever, nasal congestion, ear pain, preceding headaches. She saw ENT this morning- who suggested that pt has Meniere's. Was given an order for methylprednisone and told to do PT. She reports she is having increased numbness, tingling, burning sensations in her face and body. She has been weaning off Gabapentin through psychiatry. She never had EMG/NCS done- had a work conflict. [facility] Medical History Acute bronchitis Open wound of right knee Cellulitis of buttock, left Cochlear implant in place Encounter to establish care Panic attacks Severe anxiety Anxiety Surgical History No pertinent past surgical history Family History Other Mental health disorder Social History Household Members: Spouse Housing: Condominium Alcohol intake: current Alcohol intake frequency: holidays/special occasions only Patient Tobacco Use Status: Never used Tobacco e-Cigarette/Vaping Use: Never Used Second Hand Smoke Exposure: No service: No 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al status: employed Cognitive needs: No Hearing needs: No Vision needs: No Review of Systems Const All systems reviewed & are unremarkable except as noted in HPI and below Physical Exam Vital Signs: Last Vital Signs Pulse 83 05/11/23 15:20 BP 112/76 05/11/23 15:20 Pulse Ox 99 05/11/23 15:20 Oxygen Delivery Method Room Air 05/11/23 15:20 Const General: cooperative and no acute distress Orientation/consciousness: patient oriented x3 HEENT Head: Yes normocephalic Resp Effort & Inspection: normal respiratory effort and able to speak in complete sentences Neuro General: patient oriented x3, gait normal and CN's II-XI intact bilaterally Cognition (Neuro): normal cognition Motor exam (neuro): 5/5 motor strength present throughout Psych Appearance: grossly normal Mental Status: mental status grossly normal Speech and movement: Normal speech and movement present Affect: normal affect Attitude: cooperative Thought process: Normal thought process present Thought content: Normal thought content present Insight: Good insight present (Psych) Judgement: Good judgement present (Psych) Assessment & Plan Assessment & Plan (1) Vertigo: Code(s): R42 - Dizziness and giddiness (2) Numbness and tingling: Code(s): R20.0 - Anesthesia of skin; R20.2 - Paresthesia of skin (3) Facial paresthesia: Code(s): R20.2 - Paresthesia of skin (4) Cochlear implant in place: Code(s): Z96.21 - Cochlear implant status (5) Migraine: Code(s): G43.909 - Migraine, unspecified, not intractable, without status migrainosus Plan For new onset vertigo- Check labs Vestibular PT eval & Tx Methylprednisone as ordered For ongoing worsening facial and generalized paresthesias Will order f/u head CT w/o EMG/NCS RUER and LLE as ordered. f/u in 3 months or sooner prn Orders: Orders Complete Blood Count Auto Diff Today M25.50 - Pain in unspecified joint, R20.2 - Paresthesia of skin, R42 - Dizziness and giddiness, R51.9 - Headache, unspecified, R53.83 - Other fatigue CRP High Sensitivity Today M25.50 - Pain in unspecified joint, R20.2 - Paresthesia of skin, R42 - Dizziness and giddiness, R51.9 - Headache, unspecified, R53.83 - Other fatigue PT Evaluation and Treatment Today R42 - Dizziness and giddiness, Z96.21 - Cochlear implant status Comprehensive Met. Panel Today M25.50 - Pain in unspecified joint, R20.2 - Paresthesia of skin, R42 - Dizziness and giddiness, R51.9 - Headache, unspecified, R53.83 - Other fatigue Erythrocyte Sedimentation Rate Today M25.50 - Pain in unspecified joint, R20.2 - Paresthesia of skin, R42 - Dizziness and giddiness, R51.9 - Headache, unspecified, R53.83 - Other fatigue CT head/brain wo IV con Today R20.0 - Anesthesia of skin, R20.2 - Paresthesia of skin, R42 - Dizziness and giddiness, Z96.21 - Cochlear implant status NE electromyogram (EMG) Today R20.0 - Anesthesia of skin, R20.2 - Paresthesia of skin Medications: New methylprednisolone 4 mg PO QAM Coding Level of Care Code Est Pt Level 4 (81247) Diagnoses Vertigo R42 Numbness and tingling R20.0; R20.2 Facial paresthesia R20.[address] Z96.21 Migraine G43.909
[2023-05-11 15:20] VITALS: BP 112/76; PULSE 83; O2SAT 99
== END 2023-05-11 16:03 | disposition home or self-care (01) ==
PROVIDERS: PCP Nurse Practitioner Family; Visit Provider Nurse Practitioner Family
DX: R42 Dizziness and giddiness (principal); R20.0 Anesthesia of skin; R20.2 Paresthesia of skin; Z96.21 Cochlear implant status; G43.909 Migraine, unspecified, not intractable, without status migrainosus
CPT/HCPCS: 99214

== ENCOUNTER → 2023-05-11 15:01 | Outpatient (BNVA) | payer BC, SELFPAY | PROVIDERS: PCP Nurse Practitioner Family; Visit Provider Nurse Practitioner Family ==

== ENCOUNTER 2023-05-13 10:48 | Outpatient (AMB) | payer BC, SELFPAY ==
[2023-05-13 10:50] VITALS: BP 118/82; PULSE 80; O2SAT 95; BMI 22.7
--- NOTE | 2023-05-13 10:50 | MHC.PC.OV ---
Vital Signs 05/13/23 10:50 Height 5 ft 6 in Weight 140 lb 8 oz BMI 22.7 BP 118/82 Blood Pressure Location Lt brachial Position Sitting Pulse 80 Pulse Source Pulse Oximeter Pulse Oximetry (%) 95 Oxygen Delivery Method Room Air Intake Visit Reasons: vertigo Intake Note: Pt is here for ongoing vertigo since last Wednesday. Coastal Tug Mate Required: No Accompanied by: Self / Same As Patient Allergies No Known Allergies [No Known Allergies*] Allergy (Verified 05/13/23 11:13) Medication List - Last Reconciled 05/13/23 by Julius Barber PA-C cholecalciferol (vitamin D3) 50 mcg PO DAILY gabapentin 400 mg PO TID 30 days gabapentin 100 mg PO DAILY 30 days loratadine 10 mg PO DAILY magnesium 250 mg PO DAILY methylprednisolone 4 mg PO QAM omeprazole 20 mg PO DAILY Tobacco use date assessed: 04/23/23 Dental Screening Dental Screen Date: 05/13/23 Did you have a dental visit in the last 12 months?: Yes Did you have a dental problem in the last 6 months where you did not have access to dental care?: No Was dental information given to patient?: Patient has dentist HPI vertigo HPI Details Patient is a 28-year-old female here today for a problem visit. Patient has a past medical history significant for severe anxiety, migraines, mood disorder. She reports she has been having consistent vertigo over the last 5 days. She reports her dizziness is set off by change in head movements are eye movements.. Of note she does have a cochlear implant and has followed up with her ENT specialist and reports no ear infection. She recently seen a neurologist and will be getting sense of workup including CT of head, EMG testing and labs. She also mentioned she does get chest pain from time to time in the upper left chest. [facility] Medical History Acute bronchitis Open wound of right knee Cellulitis of buttock, left Cochlear implant in place Encounter to establish care Panic attacks Severe anxiety Anxiety Surgical History No pertinent past surgical history Family History Other Mental health disorder Social History Household Members: Spouse Housing: Condominium Alcohol intake: current Alcohol intake frequency: holidays/special occasions only Patient Tobacco Use Status: Never used Tobacco e-Cigarette/Vaping Use: Never Used Second Hand Smoke Exposure: No service: No 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al status: employed Cognitive needs: No Hearing needs: No Vision needs: No Questionnaire Thrive Questionnaire Date Thrive assessed: 12/18/22 ROMY-7 AMB Questionnaire ROMY-7 Date ROMY - 7 assessed: 12/18/22 Source: Developed by Drs. Spencer Gimenez, Rosanne Gonzalez, Boaz Ford and colleagues, with an educational jose r from [employer]. Review of Systems Const Denies headache(s) Eyes Denies loss of vision ENT Denies vertigo, Reports dizziness, Denies headache(s) and Denies sore throat Card Denies chest pain, Denies leg edema and Denies lightheadedness Resp Denies cough, Denies hemoptysis and Denies wheezing GI Denies abdominal pain, Denies melena, Denies constipation, Denies diarrhea and Denies vomiting Denies urinary frequency, Denies dysuria and Denies urinary urgency Musc Denies arthralgias, Denies joint swelling, Denies numbness and Denies tingling Neuro Denies Abnormal speech present, Denies behavioral changes, Denies vertigo, Reports dizziness, Denies headache(s), Denies loss of vision, Denies memory loss, Denies numbness and Denies tingling Psych Denies anxiety, Denies behavioral changes, Denies depression, Denies memory loss and Denies panic attacks Hosea/Lymph Denies easy bleeding and Denies easy bruising Aller/Immun Denies wheezing Physical exam (Primary Care) Vital Signs: Last Vital Signs Pulse 80 05/13/23 10:50 BP 118/82 05/13/23 10:50 Pulse Ox 95 05/13/23 10:50 Oxygen Delivery Method Room Air 05/13/23 10:50 BMI result Body Mass Index 22.7 Tobacco/Smoking Status: Tobacco use Status Tobacco use date assessed 04/23/23 05/13/23 10:56 Patient Tobacco Use Status Never used Tobacco 05/13/23 10:56 e-Cigarette/Vaping Use Never Used 05/13/23 10:56 Thrive Assessment: Date of Thrive Assessment Date Thrive assessed 12/18/22 05/13/23 10:56 Const General: healthy appearing, no acute distress, alert and awake Nutritional Appearance: well nourished Orientation/consciousness: oriented to person, oriented to place and oriented to time HENMT Ears: TM's normal bilaterally General nose exam: Normal nasal mucous membranes and turbinates present Eyes Conjunctivae: conjunctivae normal Sclerae: sclerae normal Pupils: Equal, round and reactive pupils present Neck Neck: Yes no lymphadenopathy and Yes no JVD Thyroid: Thyroid normal Carotids: no bruits Resp Effort & Inspection: normal respiratory effort and not tachypneic Auscultation: no crackles, no rales, no rhonchi and no wheezes Cardio Rate: regular rate Rhythm: regular rhythm Heart sounds: no murmurs and normal S1 and S2 GI Palpation (GI): Soft to palpation, nontender, no hepatomegaly and no splenomegaly Auscultation: normal bowel sounds Skin General skin exam: no rashes or lesions noted and dry skin Neuro General: oriented to person, oriented to place and oriented to time Cranial nerves: Yes Equal, round and reactive pupils present Speech: No Abnormal speech present Gait exam (Neuro): Normal gait present Motor exam (neuro): no tremor noted Extrem Right upper extremity: full ROM Left upper extremity: full ROM Right lower extremity: full ROM; no edema Left lower extremity: full ROM; no edema Psych Mental Status: mental status grossly normal Speech and movement: Normal speech and movement present Affect: normal affect Attitude: cooperative Thought process: Normal thought process present Assessment and Plan Assessment & Plan (1) BPPV (benign paroxysmal positional vertigo): Code(s): H81.10 - Benign paroxysmal vertigo, unspecified ear Qualifiers: Laterality: right Qualified Code(s): H81.11 - Benign paroxysmal vertigo, right ear Plan: Patient's signs symptoms most consistent with a benign positional paroxysmal vertigo. Advised on doing Beck maneuvers at home and p.r.n. use of meclizine for dizziness. Of note has followed up with a neurologist due to her dizziness and focal neurological symptoms in her extremities. Will be getting EMG testing and CT brain in near future. (2) Chest pain: Code(s): R07.9 - Chest pain, unspecified Qualifiers: Chest pain type: unspecified Qualified Code(s): R07.9 - Chest pain, unspecified Plan: Patient reports some left-sided chest pain. Low likelihood cardiac etiology. Most likely a manifestation of anxiety though will send for EKG to evaluate for any cardiac concern. Orders: Orders ECG 12 lead EKG 05/13/23 R07.9 - Chest pain, unspecified Medications: New meclizine 12.5 mg PO TID 10 days PRN 30 tabs 0RF dizziness H81.11 - Benign paroxysmal vertigo, right ear Coding Level of Care Code Est Pt Level 3 (92943) Diagnoses Benign paroxysmal positional vertigo of right ear H81.11 Laterality: right Chest pain, unspecified type R07.9 Chest pain type: unspecified
== END 2023-05-13 11:27 | disposition home or self-care (01) ==
PROVIDERS: PCP Nurse Practitioner Family; Visit Provider Physician Assistant
DX: H81.11 Benign paroxysmal vertigo, right ear (principal); R07.9 Chest pain, unspecified
CPT/HCPCS: 99213

== ENCOUNTER 2023-05-26 07:48 | Outpatient (REF) | payer BC, SELFPAY ==
--- NOTE | ~2023-05-26 | CT_ITS ---
EXAMINATION: CT HEAD WITHOUT CONTRAST CLINICAL INFORMATION: Dizziness. COMPARISON: CT dated 03/21/2022. TECHNIQUE: Contiguous axial imaging was performed from the skullbase to vertex without intravenous administration of contrast. This CT examination was performed using dose optimization techniques as appropriate, variously including the following: *Automated exposure control *Adjustment of mA and/or kV according to patient size (this includes techniques or standardized protocols for targeted exams where dose is matched to indication/reason for exam; i.e. extremities or head) *Use of iterative reconstruction technique DLP: 736 mGy-cm. FINDINGS: A right-sided cochlear implant device is in place which demonstrates significant beam hardening artifacts which limit assessment of the right parietal lobe region. The distal tip of the electrode array wire terminates at the junction of the middle and apical turns of the cochlea. There is no evidence of acute intracranial hemorrhage or territorial infarction. No abnormal mass effect or midline shift is seen. Patino to white matter differentiation is well preserved. No extra-axial fluid collections are identified. The ventricles are normal in size. There is no abnormal attenuation within the brain parenchyma. The osseous structures and soft tissues are normal. The mastoid air cells and visualized portions of the paranasal sinuses are well aerated. CT/CT head/brain wo IV con IMPRESSION: Limited study due to extensive beam hardening artifacts from a right-sided cochlear implant device. Otherwise, no acute intracranial pathology.
== END 2023-05-26 07:49 | disposition home or self-care (01) ==
LOC: HO.CT 07:48
PROVIDERS: PCP Nurse Practitioner Family; Visit Provider Nurse Practitioner Family
DX: R20.0 Anesthesia of skin (principal); R20.2 Paresthesia of skin; R42 Dizziness and giddiness; Z96.21 Cochlear implant status
CPT/HCPCS: 70450

== ENCOUNTER 2023-06-01 14:45 | Outpatient (AMB) | payer BC, SELFPAY ==
--- NOTE | 2023-06-01 14:56 | A.OFFVIS_ITS ---
Intake Vital Signs 06/01/23 14:57 Height 5 ft 6 in BP 114/62 Blood Pressure Location Lt brachial Position Sitting Pulse 92 Pulse Source Pulse Oximeter Pulse Oximetry (%) 99 Oxygen Delivery Method Room Air Intake Visit Reasons: 3m follow up-Confirmed Intake Note: Pt presents to the office today for a 3 month follow up. Pt states she is having some weird symptoms. Pt states she has been having left eye twitching for a few weeks but becomes intense occasionally. Pt states she also has been experiencing vertigo which has been going on for the past few weeks as well. Pt states she has been having concerns of numbness in her fingers and legs which is causing her to have mobility issues which has been going on for over a year. Allergies No Known Allergies [No Known Allergies*] Allergy (Verified 06/01/23 14:59) Medication List - Last Reconciled 06/01/23 by WARREN Olmstead cholecalciferol (vitamin D3) 50 mcg PO DAILY gabapentin 400 mg PO TID 30 days gabapentin 100 mg PO DAILY 30 days loratadine 10 mg PO DAILY magnesium 250 mg PO DAILY meclizine 12.5 mg PO TID PRN 10 days methylprednisolone 4 mg PO QAM omeprazole 20 mg PO DAILY HPI HPI Comments History of Present Illness Details 28-yr-old female presents for f/u visit. Pt states she is continuing to have room spinning dizziness. Steroid course was unhelpful. She has not started vestibular tx yet- could not do d/t work and PT schedule conflicts. Will start next week. She denies headache. Does endorse near constant head pressure, brain fog, photophobia, phonophobia. She feels a near constant inner eye twitching- started 1 month ago. She continues to have pins and needles sensation. [facility] Medical History Acute bronchitis Open wound of right knee Cellulitis of buttock, left Cochlear implant in place Encounter to establish care Panic attacks Severe anxiety Anxiety Surgical History No pertinent past surgical history Family History Other Mental health disorder Household Members: Spouse Housing: Condominium Alcohol intake: current Alcohol intake frequency: holidays/special occasions on ly Patient Tobacco Use Status: Never used Tobacco e-Cigarette/Vaping Use: Never Used Second Hand Smoke Exposure: No service: No 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al status: employed Cognitive needs: No Hearing needs: No Vision needs: No Review of Systems Const All systems reviewed & are unremarkable except as noted in HPI and below Physical Exam Vital Signs: Last Vital Signs Pulse 92 06/01/23 14:57 BP 114/62 06/01/23 14:57 Pulse Ox 99 06/01/23 14:57 Oxygen Delivery Method Room Air 06/01/23 14:57 Const General: cooperative and no acute distress Orientation/consciousness: patient oriented x3 HEENT Head: Yes normocephalic Resp Effort & Inspection: normal respiratory effort and able to speak in complete sentences Neuro Other: EOM intact w/o nystagmus No visible eye tremor/fasiculation. General: patient oriented x3, gait normal and CN's II-XI intact bilaterally (w/ exception of [place]BUE, s/p cochlear implant) Cognition (Neuro): normal cognition Motor exam (neuro): 5/5 motor strength present throughout Psych Appearance: grossly normal Mental Status: mental status grossly normal Speech and movement: Normal speech and movement present Affect: normal affect Attitude: cooperative Thought process: Normal thought process present Thought content: Normal thought content present Insight: Good insight present (Psych) Judgement: Good judgement present (Psych) Assessment & Plan Assessment & Plan (1) Migraine: Code(s): G43.909 - Migraine, unspecified, not intractable, without status migrainosus (2) Numbness and tingling: Code(s): R20.0 - Anesthesia of skin; R20.2 - Paresthesia of skin (3) Facial paresthesia: Code(s): R20.2 - Paresthesia of skin (4) Cochlear implant in place: Code(s): Z96.21 - Cochlear implant status (5) Vertigo: Code(s): R42 - Dizziness and giddiness Plan For new onset vertigo- Reviewed labs- NL Vestibular PT eval & Tx- as ordered For ongoing worsening facial and generalized paresthesias Head CT w/o- no acute findings to account for pt's symptoms EMG/NCS BUE and BLE as ordered. Future considerations: Chronic brain fog/head pressure does also raise suspicion for chronic migraine or a MAST cell process: Upon completion of abaove- consider trial of migraine prevention agent, trial of H2 shagufta, leukotriene receptor antagonists, or antihistamine. Coding Level of Care Code Est Pt Level 4 (54300) Diagnoses Migraine G43.909 Numbness and tingling R20.0; R20.2 Facial paresthesia R20.[address] Z96.21 Vertigo R42
[2023-06-01 14:57] VITALS: BP 114/62; PULSE 92; O2SAT 99
== END 2023-06-01 15:45 | disposition home or self-care (01) ==
PROVIDERS: PCP Nurse Practitioner Family; Visit Provider Nurse Practitioner Family
DX: G43.909 Migraine, unspecified, not intractable, without status migrainosus (principal); R20.0 Anesthesia of skin; R20.2 Paresthesia of skin; Z96.21 Cochlear implant status; R42 Dizziness and giddiness
CPT/HCPCS: 99214

== ENCOUNTER → 2023-06-01 14:45 | Outpatient (BNVA) | payer BC, SELFPAY | PROVIDERS: PCP Nurse Practitioner Family; Visit Provider Nurse Practitioner Family | DX: R42 Dizziness and giddiness (principal); Z96.21 Cochlear implant status; R20.2 Paresthesia of skin; M25.50 Pain in unspecified joint; R53.83 Other fatigue; R51.9 Headache, unspecified ==

== ENCOUNTER 2023-06-10 16:22 | Outpatient (REF) | payer BC, SELFPAY ==
[2023-06-11 12:57] LABS: Influenza A PCR NEGATIVE (Negative); Influenza B PCR NEGATIVE (Negative); Resp Syncy Virus RNA Qual PCR POSITIVE (Negative); SARS COV2 PCR INHOUSE NEGATIVE (Negative)
== END 2023-06-10 16:23 | disposition home or self-care (01) ==
LOC: HO.HMGCLNP 16:22
PROVIDERS: Visit Provider Physician Assistant
DX: Z11.52 Encounter for screening for COVID-19 (principal); Z20.822 Contact with and (suspected) exposure to COVID-19; J01.10 Acute frontal sinusitis, unspecified
CPT/HCPCS: 0241U

== ENCOUNTER 2023-06-10 16:22 | Outpatient (AMB) | payer BC, SELFPAY ==
--- NOTE | 2023-06-10 16:49 | MHC.OFFWIV ---
Intake Vital Signs 06/10/23 16:50 Height 5 ft 6 in Weight 141 lb BMI 22.8 BP 110/70 Blood Pressure Location Rt brachial Position Sitting Pulse 99 Temp 98.5 F Temp Source Temporal Artery Scan Pulse Oximetry (%) 99 Oxygen Delivery Method Room Air Intake Visit Reasons: EP congestion sinus pressure Intake Note: pt is here today for congestion sinus pressure started 2 weeks ago , patient say she has vertigo Patient Tobacco Use Status: Never used Tobacco Allergies No Known Allergies [No Known Allergies*] Allergy (Verified 06/10/23 16:50) Do you need a note to return to daycare/school/sports/work: Yes HPI HPI Comments History of Present Illness Details This is a 28-year-old female with a past medical history of anxiety and 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 Patient reports chills but denies having any fevers, ear pain, shortness of breath or chest pain. Patient take a test for COVID-19 at home which was negative. Patient states she is starting a new job on Wednesday and is concerned that she may have influenza. Patient has not taken any medication for treatment of her discomfort. [facility] Medical History Acute bronchitis Open wound of right knee Cellulitis of buttock, left Cochlear implant in place Encounter to establish care Panic attacks Severe anxiety Anxiety Surgical History No pertinent past surgical history Family History Other Mental health disorder Social History Household Members: Spouse Housing: Condominium Alcohol intake: current Alcohol intake frequency: holidays/special occasions only Patient Tobacco Use Status: Never used Tobacco e-Cigarette/Vaping Use: Never Used Second Hand Smoke Exposure: No service: No 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al status: employed Cognitive needs: No Hearing needs: No Vision needs: No Review of Systems Const All systems reviewed & are unremarkable except as noted in HPI and below Reports chills, Denies fatigue, Denies fever(s), Denies headache(s) and Denies malaise Eyes Reports as per HPI ENT Reports no additional complaints, Denies otalgia, Denies facial pain, Denies headache(s), Reports sinus pressure and Reports sore throat Card Reports as per HPI Resp Reports as per [facility] Skin/Breast Reports system reviewed and no additional complaints, except as documented Neuro Denies headache(s) Endo Denies fatigue Physical Exam Vital Signs: Last Vital Signs Temp 98.5 F 06/10/23 16:50 Pulse 99 06/10/23 16:50 BP 110/70 06/10/23 16:50 Pulse Ox 99 06/10/23 16:50 Oxygen Delivery Method Room Air 06/10/23 16:50 BMI result Body Mass Index 22.8 Patient is afebrile and is not hypoxic. Const General: cooperative, healthy appearing, comfortable, no acute distress and anxious Nutritional Appearance: average body habitus Orientation/consciousness: patient oriented x3 Limitations: no limitations HEENT Head: Yes normal to inspection Ears: hearing grossly normal bilaterally, external ears normal, right TM abnormal (TM bulging without erythema), TM normal on the left and EAC's normal General nose exam: Normal external nose present Face and sinus: Yes normal facial exam and Yes sinuses nontender Mouth: Normal oral and palatal mucosa present Throat: Yes posterior oropharynx normal Eyes General: appearance normal, both eyes and all related structures Eyelids: Yes eyelids normal Conjunctivae: conjunctivae normal Sclerae: sclerae normal Corneas: corneas normal Pupils: Equal, round and reactive pupils present EOM: EOMs intact bilaterally Neck Lymphatic: no lymphadenopathy noted Resp Effort & Inspection: normal respiratory effort Auscultation: clear to auscultation bilaterally Cardio Rate: regular rate Rhythm: regular rhythm Skin General skin exam: no rashes or lesions noted Neuro General: patient oriented x3 Cranial nerves: Yes Equal, round and reactive pupils present Psych Appearance: grossly normal Mental Status: mental status grossly normal Insight: Good insight present (Psych) Judgement: Good judgement present (Psych) Assessment & Plan Assessment & Plan (1) Acute frontal sinusitis, unspecified: Code(s): J01.10 - Acute frontal sinusitis, unspecified Plan: SARS panel is ordered and pending. Patient We use Tylenol or ibuprofen as needed for her discomfort and increase clear fluids over the weekend. Patient will follow up her primary care provider within 7-10 days if her symptoms persist. Orders: Orders SARS-CoV2/FLU/RSV 06/10/23 J01.10 - Acute frontal sinusitis, unspecified Coding Level of Care Code Est Pt Level 3 (93201) Diagnoses Acute frontal sinusitis, unspecified J01.10 Time Spent (min) 25
[2023-06-10 16:50] VITALS: BP 110/70; PULSE 99; TEMP 36.9; O2SAT 99; BMI 22.8
== END 2023-06-10 17:16 | disposition home or self-care (01) ==
PROVIDERS: PCP Nurse Practitioner Family; Visit Provider Physician Assistant
DX: J01.10 Acute frontal sinusitis, unspecified (principal)
CPT/HCPCS: 99213

== ENCOUNTER → 2023-06-23 15:54 | Outpatient (BNVA) | payer BC, SELFPAY | PROVIDERS: PCP Nurse Practitioner Family; Visit Provider Nurse Practitioner Family ==

== ENCOUNTER 2023-06-25 17:05 | Emergency (ER) | payer BC, SELFPAY ==
--- NOTE | ~2023-06-25 | XR_ITS ---
EXAMINATION: XR CHEST CLINICAL INFORMATION: Chest pain. Shortness of breath. COMPARISON: 09/11/2021. TECHNIQUE: 2 views of the chest were obtained. FINDINGS: No significant abnormality is noted involving the heart, lungs, mediastinum, bony thorax or soft tissues. XR/XR chest 2V IMPRESSION: Unremarkable examination.
--- NOTE | 2023-06-25 17:08 | ECG_ITS ---
Test Reason : CX PAIN Blood Pressure : / mmHG Vent. Rate : 085 BPM Atrial Rate : 085 BPM P-R Int : 154 ms QRS Dur : 080 ms QT Int : 372 ms P-R-T Axes : 030 009 028 degrees QTc Int : 442 ms Normal sinus rhythm Normal ECG When compared with ECG of 11-SEP-2021 18:04, Nonspecific T wave abnormality has replaced inverted T waves in Inferior leads Referred By: Margy Le Electronically Signed By:Manish Castro
[2023-06-25 17:12] VITALS: BP 126/86; PULSE 97; RESP 20; TEMP 37.1; O2SAT 100; BMI 21.8
--- NOTE | 2023-06-25 17:12 | ED_ITS ---
HPI - General Adult General Chief complaint: Chest Pain Stated complaint: Chest pain/Back pain sent by urgent care Time Seen by Provider: 06/25/23 18:45 Source: patient Mode of arrival: ambulatory Limitations: no limitations History of Present Illness HPI narrative: Patient recently had RSV bronchitis 3 since then complaining of chest tightness and cough off and on was seen at urgent care center was given doxycycline last week and again seen today and sent here to rule out blood clot patient does not have any risk factor for PE not on any control pills saturating 100% at room air feel tight with multiple other symptoms very anxious on arrival does take gabapentin for anxiety Related Data Home Medications Medication Instructions Recorded Confirmed loratadine 10 mg tablet 10 mg PO DAILY 08/03/20 06/23/23 omeprazole 20 mg capsule,delayed 20 mg PO DAILY 08/03/20 06/23/23 release cholecalciferol (vitamin D3) 50 50 mcg PO DAILY 04/22/22 06/23/23 mcg (2,000 unit) capsule magnesium 250 mg tablet 250 mg PO DAILY 04/22/22 06/23/23 methylprednisolone 4 mg tablet 4 mg PO QAM 05/11/23 06/23/23 Previous Rx's Medication Instructions Recorded gabapentin 100 mg capsule 100 mg PO DAILY 30 days #30 caps 06/24/22 gabapentin 400 mg capsule 400 mg PO TID 30 days #90 caps 06/24/22 meclizine 12.5 mg tablet 12.5 mg PO TID PRN dizziness 10 05/13/23 days #30 tabs sumatriptan succinate 100 mg tablet 50 - 100 mg (0.5 - 1 x 100 mg) PO 06/23/23 .COMPLEX PRN migraine headache 30 days #12 tabs benzonatate 200 mg capsule 200 mg PO TID PRN cough #30 caps 06/25/23 Allergies Allergy/AdvReac Type Severity Reaction Status Date / Time No Known Allergies Allergy Verified 06/23/23 15:55 [No Known Allergies*] Review of Systems 2 Review of Systems: Yes all other systems are reviewed and are negative PMFSH Past Medical History Medical History Acute bronchitis Open wound of right knee Cellulitis of buttock, left Cochlear implant in place Encounter to establish care Panic attacks Severe anxiety Anxiety Surgical History No pertinent past surgical history Family History Family History Other Mental health disorder Social History Social History Household Members: [facility] Alcohol intake: current Alcohol intake frequency: holidays/special occasions only Patient Tobacco Use Status: Never used Tobacco e-Cigarette/Vaping Use: Never Used Second Hand Smoke Exposure: No Advance Directives: No Advance Directives Information Provided: No service: No 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al status: employed Cognitive needs: No Hearing needs: No Vision needs: No Physical Exam ED Vital Signs: Vital Signs - 24 hr 06/25/23 17:12 06/25/23 18:34 Temperature 98.7 F 98.4 F Pulse Rate 97 82 Respiratory Rate 20 18 Blood Pressure 126/86 116/77 Pulse Oximetry 100 100 Oxygen Delivery Method Room Air Room Air BMI result Body Mass Index 21.8 Appearance: Alert. Oriented X3. Anxious ENT: Pharynx normal. Oral Mucosa moist Neck: Normal inspection. Neck supple. CVS: Normal heart rate and rhythm. Pulses normal. Respiratory: No respiratory distress. Equal air entry bilateral, no wheezing/rales/rhonchi Abdomen: Soft and nontender. Skin: Skin warm and dry. Normal skin color. Normal skin turgor. Extremities: No lower extremity edema. No calf tenderness Neuro: Oriented X 3. No motor deficit. No sensory deficit.No cerebellar signs , cranial nerves II-XII intact Course Course Course Narrative: RME performed by Margy Le PA-C. Patient is a 28 year old assigned female at presenting to the emergency department with upper chest and back pain. Sent by urgent care. Labs, imaging, and swabs ordered. Patient placed back in the waiting room pending room availability and results. Medical Decision Making Medical Decision Making [facility] Narrative: Patient has atypical pain and symptoms workup negative for PE/ACS/pneumonia/lucid patient home advised to take Tessalon Perles for cough Differential Diagnosis Differential Diagnoses: The differential diagnosis associated with the presentation includes Anxiety atypical chest pain/Pe//bronchitis/pneumonia/pleurisy Lab Data [facility] Lab Attestation statement: I reviewed the patient's lab results. 06/25/23 18:18 06/25/23 18:18 Labs: Lab Results 06/25/23 Range/Units 18:18 WBC 6.8 (4.8-10.8) X10*3/uL RBC 4.32 (4.20-5.50) X10*6/uL Hgb 13.2 (12.0-16.0) g/dl Hct 38.6 (37.0-47.0) % MCV 89.4 (80.0-98.0) fL MCH 30.6 (27.0-33.0) pg MCHC 34.2 (31.0-35.0) g/dl RDW 11.5 (11.0-16.0) % Plt Count 338 (160-400) X10*3/uL MPV 8.7 L (9.4-12.3) fL Immature Gran % (Auto) 0.3 (0.0-0.4) % Neut % (Auto) 61.3 (45-73) % Lymph % (Auto) 25.8 (20-40) % Cache % (Auto) 8.0 (2-11) % Eos % (Auto) 4.3 H (0-4) % Baso % (Auto) 0.3 (0-2) % Lymph # (Auto) 1.7 (1.2-4.9) X10*3/uL Cache # (Auto) 0.5 (0.1-1.2) X10*3/uL Eos # (Auto) 0.3 (0.0-0.4) X10*3/uL Baso # (Auto) 0.0 (0.0-0.2) X10*3/uL Abs Immat Gran (auto) 0.02 (0.00-0.03) X10*3/uL Absolute Neuts (auto) 4.1 (2.0-8.3) x10*3/uL Absolute Nucleated RBC 0.000 (0.0-0.012) X10*3/uL Nucleated RBC % (auto) 0.0 (0.0-0.2) /100WBC PT 10.9 L (11.1-13.3) SEC INR 0.9 (0.9-1.1) APTT 32.2 (26.0-36.4) SEC D-Dimer High Sensitivty < 150 NG/ML Sodium 139 (135-145) mmol/L Potassium 4.5 (3.3-5.1) mmol/L Chloride 103 (96-108) mmol/L Carbon Dioxide 26 (22-29) mmol/L Anion Gap 15 (12-20) BUN 12 (9-16) mg/dL Creatinine 0.81 (0.5-1.4) mg/dL Estim Creat Clear Calc 95.0 Estimated GFR > 60 Random Glucose 96 (60-115) mg/dL Calcium 9.6 (8.4-10.2) mg/dL Magnesium 2.3 (1.6-2.6) mg/dL Total Bilirubin 0.3 (0.0-1.0) mg/dL AST 19 (5-31) U/L ALT 18 (0-31) U/L Alkaline Phosphatase 79 (39-117) U/L Troponin I High Sens < 2.7 (<3.5-17.0) ng/L Total Protein 7.8 (6.5-8.0) g/dL Albumin 4.4 (3.5-5.0) g/dL Influenza Type A (PCR) NEGATIVE (Negative) Influenza Type B (PCR) NEGATIVE (Negative) RSV RNA Qual (PCR) NEGATIVE (Negative) SARS-CoV-2 RNA (RT-PCR) NEGATIVE (Negative) Independent Interpretation I performed an independent interpretation of an: EKG and Plain X-Ray Interpretation: Normal sinus rhythm heart rate 85 beats per minute normal interval normal axis no acute ST-T changes impression normal EKG Radiology Impression Discussion of test interpretation with radiology: I have reviewed the radiologist's reading. Discharge Plan Discharge Clinical Impression: Chronic bronchitis Patient Disposition: Home, Self-Care Instructions: Chronic Bronchitis (ED) Additional Instructions: Your blood workup chest x-ray negative for any acute infection/blood clots Take cough drops as prescribed Prescriptions: New benzonatate 200 mg capsule 200 mg PO TID PRN (Reason: cough) Qty: 30 0RF No Action gabapentin 400 mg capsule 400 mg PO TID 30 Days Qty: 90 1RF gabapentin 100 mg capsule 100 mg PO DAILY 30 Days Qty: 30 1RF Rx Instructions: qam omeprazole 20 mg Capsule,Delayed Release(Dr/Ec) 20 mg PO DAILY loratadine 10 mg Tablet 10 mg PO DAILY meclizine 12.5 mg tablet 12.5 mg PO TID PRN (Reason: dizziness) 10 Days Qty: 30 0RF magnesium 250 mg tablet 250 mg PO DAILY cholecalciferol (vitamin D3) 50 mcg (2,000 unit) capsule 50 mcg PO DAILY methylprednisolone 4 mg tablet 4 mg PO QAM sumatriptan succinate 100 mg tablet 50 - 100 mg PO .COMPLEX PRN (Reason: migraine headache) 30 Days Qty: 12 6RF Rx Instructions: 50 - 100 mg orally at onset of headache, may repeat in 2 hrs PRN; max 2 tabs per day or 4 tabs/week (may take with Ibuprofen) Interventions: ED Discharge Assessment Last Done: 06/25/23 19:13 Discharge Date/Time: 06/25/23 19:13
[2023-06-25 18:25] LABS: MANUAL DIFF FLAG NO
[2023-06-25 18:28] LABS: Basophils Percent Auto 0.3 % (0-2); Eosinophils Absolute Auto 0.3 X10*3/uL (0.0-0.4); Eosinophils Percent Auto 4.3 % (0-4); Hematocrit 38.6 % (37.0-47.0); Hemoglobin 13.2 g/dl (12.0-16.0); Imm Gran Abs Auto 0.02 X10*3/uL (0.00-0.03); Imm Gran Pct Auto 0.3 % (0.0-0.4); Lymphocytes Absolute Auto 1.7 X10*3/uL (1.2-4.9); Lymphocytes Percent Auto 25.8 % (20-40); Mean Corpuscular HGB Conc 34.2 g/dl (31.0-35.0); Mean Corpuscular Hemoglobin 30.6 pg (27.0-33.0); Mean Corpuscular Volume 89.4 fL (80.0-98.0); Mean Platelet Volume 8.7 fL (9.4-12.3); Monocytes Absolute Auto 0.5 X10*3/uL (0.1-1.2); Neutrophils Absolute Auto 4.1 x10*3/uL (2.0-8.3); Neutrophils Percent Auto 61.3 % (45-73); Platelet Count 338 X10*3/uL (160-400); Red Blood Count 4.32 X10*6/uL (4.20-5.50); Red Cell Distribution Width 11.5 % (11.0-16.0); White Blood Count 6.8 X10*3/uL (4.8-10.8)
[2023-06-25 18:33] LABS: INTERNATIONAL NORM RATIO 0.9 (0.9-1.1); Prothrombin Time 10.9 SEC (11.1-13.3)
[2023-06-25 18:34] VITALS: BP 116/77; PULSE 82; RESP 18; TEMP 36.9; O2SAT 100
[2023-06-25 18:36] LABS: D Dimer High Sensitivity < 150 NG/ML; Partial Thromboplastin Time 32.2 SEC (26.0-36.4)
[2023-06-25 18:41] LABS: Alanine Aminotransferase 18 U/L (0-31); Albumin Level 4.4 g/dL (3.5-5.0); Alkaline Phosphatase 79 U/L (39-117); Anion Gap 15 (12-20); Aspartate Amino Transferase 19 U/L (5-31); Bilirubin Total 0.3 mg/dL (0.0-1.0); Blood Urea Nitrogen 12 mg/dL (9-16); Calcium 9.6 mg/dL (8.4-10.2); Carbon Dioxide 26 mmol/L (22-29); Chloride 103 mmol/L (96-108); Estimated Glomerular Filt Rate > 60; Glucose Random 96 mg/dL (60-115); Magnesium 2.3 mg/dL (1.6-2.6); Potassium 4.5 mmol/L (3.3-5.1); Sodium 139 mmol/L (135-145); Total Protein 7.8 g/dL (6.5-8.0)
[2023-06-25 18:49] LABS: Troponin-I High Sensitivity < 2.7 ng/L (<3.5-17.0)
[2023-06-25 19:06] LABS: Influenza A PCR NEGATIVE (Negative); Influenza B PCR NEGATIVE (Negative); Resp Syncy Virus RNA Qual PCR NEGATIVE (Negative); SARS COV2 PCR INHOUSE NEGATIVE (Negative)
== END 2023-06-25 19:13 | disposition home or self-care (01) ==
PROVIDERS: Physician Assistant Medical; Emergency Provider Internal Medicine
DX: J40 Bronchitis, not specified as acute or chronic (principal); R07.89 Other chest pain; M54.50 Low back pain, unspecified; R05.9 Cough, unspecified; Z20.822 Contact with and (suspected) exposure to COVID-19; Z20.828 Contact with and (suspected) exposure to other viral communicable diseases; Z79.899 Other long term (current) drug therapy
CPT/HCPCS: 0241U; 71046; 80053; 83735; 84484; 85025; 85379; 85610; 85730; 93005; 99283; 99285

== ENCOUNTER → 2023-06-25 17:08 | Outpatient (BNV) | payer BC, SELFPAY | PROVIDERS: Emergency Provider Internal Medicine; Visit Provider Internal Medicine Cardiovascular Disease | DX: R07.9 Chest pain, unspecified (principal) | CPT/HCPCS: 93010 ==

== ENCOUNTER 2023-08-27 15:51 | Outpatient (REF) | payer BC, SELFPAY ==
[2023-08-27 17:35] LABS: Appearance Urine Clear; Color Urine Yellow; Glucose Urine UA Negative (Negative); Leukocyte Esterase Urine Large (3+) (Negative); Nitrite Urine Negative (Negative); UMIC TRIGGER UACC YES; Urine Blood Negative (Negative); Urine Ketones Negative (Negative); Urine Protein Negative (Neg-Trace)
[2023-08-27 17:38] LABS: Bacteria Urine None Seen (None Seen); Hyaline Casts Urine 0-2 /LPF (0-2); RBC Urine 0-2 /HPF (0-2); Squamous Epithelial Cell Urine 0-2 /HPF (0-2); UACC Culture Trigger YES; WBC Urine 21-50 /HPF (0-5)
== END 2023-08-27 15:52 | disposition home or self-care (01) ==
LOC: HO.LAB 15:51
PROVIDERS: PCP Nurse Practitioner Family; Visit Provider Nurse Practitioner Family
DX: R39.9 Unspecified symptoms and signs involving the genitourinary system (principal)
CPT/HCPCS: 81001; 87086

== ENCOUNTER 2023-09-07 08:29 | Outpatient (AMB) | payer BC, SELFPAY ==
[2023-09-07 08:36] VITALS: BP 99/58; PULSE 58; RESP 12; TEMP 36.6; O2SAT 100; BMI 22.0
--- NOTE | 2023-09-07 08:36 | MHC.PC.OV ---
Vital Signs 09/07/23 08:36 Height 5 ft 6 in Weight 136 lb 6 oz BMI 22.0 BP 99/58 L Blood Pressure Location Lt brachial Position Sitting Respiration 12 Pulse 58 Pulse Source Pulse Oximeter Temp 97.9 F Temp Source Temporal Artery Scan Pulse Oximetry (%) 100 Oxygen Delivery Method Room Air Intake Visit Reasons: Transfer from [facility]/New Intake Note: Patient is here for her initial appointment. Patient reports she has some concerns. Patient see's therapist Joann Ortiz in [place]. Belt Operator Required: No Accompanied by: Self / Same As Patient Allergies No Known Allergies [No Known Allergies*] Allergy (Verified 09/07/23 09:17) Medication List - Last Reconciled 09/07/23 by TAMARA ZhuPErick cholecalciferol (vitamin D3) 50 mcg PO DAILY docosahexaenoic acid ( DHA) mg PO gabapentin 400 mg PO TID 30 days gabapentin 100 mg PO DAILY 30 days loratadine 10 mg PO DAILY magnesium 250 mg PO DAILY omeprazole 20 mg PO DAILY sertraline (Zoloft) 25 mg PO DAILY vitamin B complex (B Complex-Vitamin B12 tablet) 1 tab PO DAILY Tobacco use date assessed: 09/07/23 Dental Screening Dental Screen Date: 09/07/23 Did you have a dental visit in the last 12 months?: No Did you have a dental problem in the last 6 months where you did not have access to dental care?: No Was dental information given to patient?: Patient has dentist HPI HPI Comments History of Present Illness Details 28-year-old female with alcoholism, GERD, MDD, benzodiazepine dependence, borderline personality disorder, benign paroxysmal positional vertigo, cochlear implant on the right due to congenital sensorineural hearing loss, migraine aura without headache, panic attacks, severe somatoform disorder Specialists Psychiatry and counselor 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 Here today to establish care. She suffered a spontaneous confirmed via records from [facility] to 12/30/2023. The records indicate she was 8 weeks 6 days' gestation when she started with abdominal cramping and heavy bleeding. She was treated with misoprostol. Labs done which showed a stable H&H. Transvaginal ultrasound done and confirmed the spontaneous . here today telling me that she is worried about internal bleeding taking way too much Motrin on empty stomach. Even though she knows this is too much Motrin she continues to take it. Tells me she knows she is supposed to take it with food but has no appetite. In addition she is taking Tylenol. This is to help her with the abdominal cramping that she is experiencing. Reports no abnormal vaginal bleeding. Denies any overt signs of bleeding. Reports she has no follow up with reconciling clerk for a few weeks. This was her 1st . Feels the sensation of gas in her abdomen Reports her anxiety is severe and she is working with Psychiatry. She is tapering off gabapentin and she does not want to be on this medication. She was recently started on Zoloft. Her next appointment with psychiatry is in 2 weeks. She is currently working a remote position at [employer]. [facility] [employer] Medical History Acute bronchitis Open wound of right knee Cellulitis of buttock, left Cochlear implant in place Encounter to establish care Panic attacks Severe anxiety Anxiety Surgical History No pertinent past surgical history Family History Other Mental health disorder Social History (Updated 09/07/23 @ 08:46 by Madai Ann CMA) Household Members: [facility] Alcohol intake: current Alcohol intake frequency: holidays/special occasions only Patient Tobacco Use Status: Never used Tobacco e-Cigarette/Vaping Use: Never Used Second Hand Smoke Exposure: No service: No 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al status: employed 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: [employer] Cognitive needs: No Hearing needs: No Vision needs: No Questionnaire PHQ-9 Over the last 2 weeks, how often have you been bothered by any of the following problems? 1. Little interest or pleasure in doing things: not at all 2. Feeling down, depressed, or hopeless: not at all 3. Trouble falling or staying asleep, or sleeping too much: several days 4. Feeling tired or having little energy: several days 5. Poor appetite or overeating: not at all 6. Feeling bad about yourself - or that you are a failure or have let yourself or your family down: not at all 7. Trouble concentrating on things, such as reading the newspaper or watching television: not at all 8. Moving or speaking so slowly that other people could have noticed. Or the opposite - being so fidgety or restless that you have been moving around a lot more than usual: not at all 9. Thoughts that you would be better off or of hurting yourself in some way: not at all Total score: 2 Depression Screening Interpretation: Positive Depression Screening Follow-up: Existing condition and In treatment Depression Screening Done: Yes 58873 - PHQ-9 Billing: Yes Source: Developed by Drs. Spencer Gimenez, Rosanne Gonzalez, Boaz Ford and colleagues, with an educational jose r from [employer]. Thrive Questionnaire Date Thrive assessed: 12/18/22 I am a: Patient What is your living situation today?: I have a steady place to live Within the past 12 months, did the food you bought not last and you didn't have the money to get more?: Never true Do you have trouble paying for medicines?: No Do you have trouble getting transportation to medical appointments?: No Do you have trouble paying your heating and electricity bill?: No Do you have trouble taking care of your child, family member or friend?: No Do you have trouble with day-to-day activities such as bathing, preparing meals, shopping, managing finances, etc.?: No Are you currently unemployed and looking for a job?: No Are you interested in more education?: No Please select the resources that you would like help with: None Currently or been in a relationship where the following occur: no concerns reported THRIVE Score: 0 AUDIT C Alcohol Use Questionnaire (AUDIT-C) 1. How often do you have a drink containing alcohol?: Never 3. How often do you have six or more drinks on one occasion?: Never Total Score: 0 Score Reviewed/Action Taken: Yes ROMY-7 AMB Questionnaire ROMY-7 Date ROMY - 7 assessed: 09/07/23 Feeling nervous, anxious, or on edge: 1 = Several days Not being able to stop or control worryin = Several days Worrying too much about different things: 1 = Several days Trouble relaxin = Several days Being so restless that it is hard to sit still: 0 = Not at all Becoming easily annoyed or irritable: 1 = Several days Feeling afraid as if something awful might happen: 1 = Several days Total ROMY-7 score (0-4 normal; 5-9 mild; 10-14 moderate; 15-21 severe): 6 Source: Developed by Drs. Spencer Gimenez, Rosanne Gonzalez, Boaz Ford and colleagues, with an educational jose r from [employer]. ROMY-7 Assessment Billing ROMY-7 Assessment Tool: ROMY-7 Assessment 37310 Review of Systems Const All systems reviewed & are unremarkable except as noted in HPI and below Physical exam (Primary Care) Vital Signs: Last Vital Signs Temp 97.9 F 09/07/23 08:36 Pulse 58 09/07/23 08:36 Resp 12 09/07/23 08:36 BP 99/58 L 09/07/23 08:36 Pulse Ox 100 09/07/23 08:36 Oxygen Delivery Method Room Air 09/07/23 08:36 BMI result Body Mass Index 22.0 Tobacco/Smoking Status: Tobacco use Status Tobacco use date assessed 09/07/23 09/07/23 08:45 Patient Tobacco Use Status Never used Tobacco 09/07/23 08:46 e-Cigarette/Vaping Use Never Used 09/07/23 08:46 PHQ-9: PHQ-9 Score PHQ-9: Total score 2 09/07/23 09:26 Depression Screening Interpretation: Positive Depression Screening Follow-up: Existing condition and In treatment Thrive Assessment: Date of Thrive Assessment Date Thrive assessed 12/18/22 09/07/23 08:45 Currently or been in a relationship where the following occur: no concerns reported Const Other: awake alert no pallor MMM RRR LS CTAB abd soft, nontender bs wnl x4 quads mood & affect is anxious, odd Assessment and Plan Assessment & Plan (1) Borderline personality disorder: Comment: Managed by outside psychiatrist as well as counselor. Encouraged to continue close follow-up with this team for her medication management especially in the setting of a spontaneous . Code(s): F60.3 - Borderline personality disorder (2) ROMY (generalized anxiety disorder): Code(s): F41.1 - Generalized anxiety disorder (3) SAB (spontaneous ): Code(s): O03.9 - Complete or unspecified spontaneous without complication Plan: Managed by [facility] reconciling clerk. She was 8 weeks 6 days gestation at time spontaneous . Advised for her to continue follow up with this team. Reminded her to take her ibuprofen no more than 800 mg 4 times per day always with food never on an empty stomach. Tylenol a 1000 mg 3 times a day, do not exceed 3 g in 24 hours. Offered support and empathy (4) Somatoform disorder: Code(s): F45.9 - Somatoform disorder, unspecified Plan This note is constructed using voice recognition software. While every effort has been made to ensure accuracy in veterinary poultry inspector, still errors may have been included Sometimes, these errors may affect the content or meaning of the given sentence . Total time spent caring for the patient today was 60 minutes. This includes time spent before the visit reviewing the chart, time spent during the visit, and time spent after the visit on documentation Recommended return to office in February for complete physical exam sooner if needed. Coding Level of Care Code Est Pt Level 5 (34442) Diagnoses Borderline personality disorder F60.3 ROMY (generalized anxiety disorder) F41.1 SAB (spontaneous ) O03.9 Somatoform disorder F45.9 Additional Codes ROMY-7 Assessment Billing - ROMY-7 Assessment Tool: ROMY-7 Assessment 17819 ([id number])
== END 2023-09-07 09:41 | disposition home or self-care (01) ==
PROVIDERS: Visit Provider Nurse Practitioner Family
DX: F60.3 Borderline personality disorder (principal); F41.1 Generalized anxiety disorder; O03.9 Complete or unspecified spontaneous abortion without complication; F45.9 Somatoform disorder, unspecified
CPT/HCPCS: 99215

== ENCOUNTER 2024-02-03 08:23 | Emergency (ER) | payer OTHER, SELFPAY ==
--- NOTE | ~2024-02-03 | XR_ITS ---
EXAMINATION: XR CHEST CLINICAL INFORMATION: Chest pain and shortness of breath. COMPARISON: 06/25/2023 TECHNIQUE: Frontal view of the chest was obtained. FINDINGS: Lungs are well-inflated and clear. Trachea is midline in position. No interstitial disease, consolidation or mass. No pleural effusion or pneumothorax. Cardiac silhouette and pulmonary vessels are normal in size. The mediastinum and sierra have normal contour. The visualized bones and upper abdomen are unremarkable. XR/XR chest 1V IMPRESSION: Lungs have a normal appearance. No acute cardiopulmonary abnormality.
--- NOTE | 2024-02-03 08:24 | ECG_ITS ---
Test Reason : CHEST PAIN Blood Pressure : / mmHG Vent. Rate : 080 BPM Atrial Rate : 080 BPM P-R Int : 166 ms QRS Dur : 078 ms QT Int : 396 ms P-R-T Axes : 049 005 011 degrees QTc Int : 456 ms Normal sinus rhythm Normal ECG When compared with ECG of 25-JUN-2023 17:24, No significant change was found Referred By: Generic ED Physician Electronically Signed By:CINDY MONTIEL
[2024-02-03 08:35] VITALS: BP 131/77; PULSE 81; RESP 20; TEMP 36.6; O2SAT 100; BMI 21.8
--- NOTE | 2024-02-03 08:45 | ED_ITS ---
HPI - Chest Pain General Chief Complaint: Chest Pain Stated Complaint: Chest pain/SOB Time Seen by Provider: 02/03/24 08:37 Source: patient Mode of arrival: ambulatory Limitations: no limitations History of Present Illness ED Provider: DR. Green HPI narrative: 28-year-old female came in for evaluation of chest pain and shortness of breath, symptoms started 3 weeks ago that has started as intermittent now it is more frequent and almost constant feels like heaviness on the mid of the chest associated with shortness of breath, no recent travel, no recent prolonged immobilization, no using contraceptive pills, no lower extremity swelling or tenderness, no history of DVT or pulmonary embolism. Chest pain is localized to the mid chest with no radiation, no clear aggravating or relieving factor. Patient is going through stressful events in her life patient was laid out of her job and will start a new job next week causing the patient some anxiety. No family history of coronary artery disease or sudden in the family. Related Data Home Medications ?Medication ?Instructions ?Recorded ?Confirmed loratadine 10 mg tablet 10 mg PO DAILY 08/03/20 06/23/23 omeprazole 20 mg capsule,delayed 20 mg PO DAILY 08/03/20 06/23/23 release cholecalciferol (vitamin D3) 50 50 mcg PO DAILY 04/22/22 06/23/23 mcg (2,000 unit) capsule magnesium 250 mg tablet 250 mg PO DAILY 04/22/22 06/23/23 docosahexaenoic acid 200 mg mg PO 09/07/23 capsule ( DHA) sertraline 25 mg tablet (Zoloft) 25 mg PO DAILY 09/07/23 vitamin B complex (B 1 tab PO DAILY 09/07/23 Complex-Vitamin B12 tablet) Previous Rx's ?Medication ?Instructions ?Recorded gabapentin 100 mg capsule 100 mg PO DAILY 30 days #30 caps 06/24/22 gabapentin 400 mg capsule 400 mg PO TID 30 days #90 caps 06/24/22 Allergies Allergy/AdvReac Type Severity Reaction Status Date / Time prednisone AdvReac Anxiety Verified 02/03/24 08:37 Review of Systems 2 Review of Systems: All other systems are reviewed and are negative Constitutional: Reports as per HPI and Reports no additional constitutional complaints Eyes: Reports as per HPI and Reports no additional eye complaints Reports system reviewed and no additional complaints, except as documented Cardiovascular: Reports as per HPI and Reports no additional cardiovascular complaints Respiratory: Reports as per HPI and Reports no additional respiratory complaints Gastrointestinal: Reports as per HPI and Reports no additional gastrointestinal complaints Genitourinary: Reports no additional female genitourinary complaints Musculoskeletal: Reports no additional musculoskeletal complaints Skin/Breast: Reports system reviewed and no additional complaints, except as docu Psychiatric: Reports no additional psychiatric complaints Endocrine: Reports no additional endocrine complaints Hematologic/Lymphatic: Reports no additional hematologic/lymphatic complaints Allergic/Immunologic: Reports no additional allergic/immunologic complaints Reports system reviewed and no additional complaints, except as documented and Reports Abnormal speech present [facility] Past Medical History Medical History Acute bronchitis Open wound of right knee Cellulitis of buttock, left Cochlear implant in place Encounter to establish care Panic attacks Severe anxiety Anxiety Surgical History No pertinent past surgical history Family History Family History Other Mental health disorder Social History Social History Household Members: Spouse Housing: [facility] Alcohol intake: current Alcohol intake frequency: holidays/special occasions only Patient Tobacco Use Status: Never used Tobacco e-Cigarette/Vaping Use: Never Used Second Hand Smoke Exposure: No Advance Directives: No Advance Directives Information Provided: No Do you have a plan to hurt others: No Plan service: No 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al status: employed 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 Blood pressure elevated. Heart rate normal. Respiratory rate normal. Temperature normal. Oxygen saturation normal. Appearance: Alert. Oriented X3. No acute distress. Head: Normal external exam. Normocephalic. Atraumatic. No Barron signs noted. No raccoon eyes noted Eyes: PERRLA. EOMI. Conjunctiva and sclera normal. Eyelids normal. ENT: TM's Normal. Pharynx normal. Uvula midline. Moist mucous membranes. No trismus noted. No drooling noted. No muffled voice noted. Neck: Normal inspection. Neck supple. FROM. No adenopathy. Thyroid Normal. No meningeal signs. No neck mass noted. CVS: Normal heart rate and rhythm. Heart sound normal. No murmurs noted. Pulses normal throughout. Respiratory: No respiratory distress. Painless inspiration. Breath sounds normal. No wheezes/rales/rhonchi noted. Chest nontender. No accessory muscle usage noted or decreased air movement noted. Abdomen: Soft and nontender. Bowel sounds normal in all 4 quadrants. No distention noted. No organomegaly noted. No visible injury noted. Back: No CVA tenderness. Full range of motion noted. Skin: Skin warm and dry. Normal skin color. Normal skin turgor. No rashes/lesions/lacerations noted. Extremities: No lower extremity edema. Extremities exhibit normal range of motion. Extremities nontender. Neuro: Oriented X 3. Cranial nerve exam: II-XII are grossly intact No motor deficit. No sensory deficit. Reflexes normal. Course Reevaluation(s) Reevaluation #1: 28-year-old female otherwise healthy going through stressful events in her life, came in with 3 weeks' history of chest pain and shortness of breath, unremarkable EKG and D-dimer lowering the concern of having chest life- threatening or emergency condition. Patient's symptoms is secondary to stress and anxiety. Time: 12:08 Medical Decision Making Differential Diagnosis Differential Diagnoses: The differential diagnosis associated with the presentation includes (ACS, pneumonia, pneumothorax, pulmonary embolism, pleural effusion, CHF, electrolyte derangement, severe anemia, , UTI.) Admission/Observation Consideration of admission/observation: Escalation of care including admission/observation considered Lab Data MDM Lab Attestation statement: I reviewed the patient's lab results. 02/03/24 09:17 02/03/24 09:17 Labs: Lab Results 02/03/24 02/03/24 02/03/24 Range/Units 09:17 09:28 09:34 WBC 4.9 (4.8-10.8) X10*3/uL RBC 4.05 L (4.20-5.50) X10*6/uL Hgb 12.8 (12.0-16.0) g/dl Hct 37.2 (37.0-47.0) % MCV 91.9 (80.0-98.0) fL MCH 31.6 (27.0-33.0) pg MCHC 34.4 (31.0-35.0) g/dl RDW 12.0 (11.0-16.0) % Plt Count 270 (160-400) X10*3/uL MPV 8.2 L (9.4-12.3) fL Immature Gran % (Auto) 0.2 (0.0-0.4) % Neut % (Auto) 50.4 (45-73) % Lymph % (Auto) 32.5 (20-40) % [place] % (Auto) 10.8 (2-11) % Eos % (Auto) 5.5 H (0-4) % Baso % (Auto) 0.6 (0-2) % Lymph # (Auto) 1.6 (1.2-4.9) X10*3/uL [place] # (Auto) 0.5 (0.1-1.2) X10*3/uL Eos # (Auto) 0.3 (0.0-0.4) X10*3/uL Baso # (Auto) 0.0 (0.0-0.2) X10*3/uL Abs Immat Gran (auto) 0.01 (0.00-0.03) X10*3/uL Absolute Neuts (auto) 2.5 (2.0-8.3) x10*3/uL Absolute Nucleated RBC 0.000 (0.0-0.012) X10*3/uL Nucleated RBC % (auto) 0.0 (0.0-0.2) /100WBC D-Dimer High Sensitivty 152 NG/ML Sodium 141 (135-145) mmol/L Potassium 4.6 (3.3-5.1) mmol/L Chloride 106 (96-108) mmol/L Carbon Dioxide 25 (22-29) mmol/L Anion Gap 15 (12-20) BUN 8 L (9-16) mg/dL Creatinine 0.75 (0.5-1.4) mg/dL Estim Creat Clear Calc 102.6 Estimated GFR > 60 Random Glucose 95 (60-115) mg/dL Calcium 8.9 D (8.4-10.2) mg/dL Total Bilirubin 0.4 (0.0-1.0) mg/dL Direct Bilirubin 0.1 (0.0-0.5) mg/dL AST 35 H (5-31) U/L ALT 38 H (0-31) U/L Alkaline Phosphatase 98 (39-117) U/L Troponin I High Sens < 2.7 (<3.5-17.0) ng/L B-Natriuretic Peptide 12 (<100) pg/mL Total Protein 7.6 (6.5-8.0) g/dL Albumin 4.4 (3.5-5.0) g/dL Lipase 28 (8-78) U/L Urine Color Yellow Urine Appearance Clear Urine pH 7.0 (5.0-9.0) Ur Specific [place] <= 1.005 (1.005-1.025) Urine Protein Negative (Neg-Trace) mg/dL Urine Glucose (UA) Negative (Negative) mg/dL Urine Ketones Negative (Negative) mg/dL Urine Blood Trace H (Negative) Urine Nitrite Negative (Negative) Ur Leukocyte Esterase Negative (Negative) Urine RBC 0-2 (0-2) /HPF Urine WBC 0-5 (0-5) /HPF Ur Squamous Epith Cells 0-2 (0-2) /HPF Urine Bacteria None Seen (None Seen) Hyaline Casts 0-2 (0-2) /LPF Urine Test NEGATIVE (NEGATIVE) Urine Opiates Screen Not Detected (Not Detect) Ur Buprenorphine Scrn Not Detected (Not Detect) ng/mL Ur Oxycodone Screen Not Detected (Not Detect) ng/mL Urine Methadone Screen Not Detected (Not Detect) ng/mL Urine Fentanyl Screen Not Detected (Not Detect) Ur Barbiturates Screen Not Detected (Not Detect) Ur Phencyclidine Scrn Not Detected (Not Detect) Ur Amphetamines Screen Not Detected (Not Detect) U Benzodiazepines Scrn Not Detected (Not Detect) Urine Cocaine Screen Not Detected (Not Detect) U Marijuana (THC) Screen Not Detected (Not Detect) Influenza Type A (PCR) NEGATIVE (Negative) Influenza Type B (PCR) NEGATIVE (Negative) RSV RNA Qual (PCR) NEGATIVE (Negative) SARS-CoV-2 RNA (RT-PCR) NEGATIVE (Negative) Independent Interpretation I performed an independent interpretation of an: EKG (Normal sinus rhythm at 80 beats per minutes, normal intervals, no ST-T changes.) and Plain X-Ray (Chest: No acute intrathoracic pathology.) Radiology Impression Discussion of test interpretation with radiology: I have reviewed the radiologist's reading. Discharge Plan Discharge Clinical Impression: Anxiety, Atypical chest pain Patient Disposition: Home, Self-Care Instructions: Generalized Anxiety Disorder (ED) Prescriptions: No Action gabapentin 400 mg capsule 400 mg PO TID 30 Days Qty: 90 1RF gabapentin 100 mg capsule 100 mg PO DAILY 30 Days Qty: 30 1RF Rx Instructions: qam omeprazole 20 mg Capsule,Delayed Release(Dr/Ec) 20 mg PO DAILY loratadine 10 mg Tablet 10 mg PO DAILY sertraline [Zoloft] 25 mg tablet 25 mg PO DAILY vitamin B complex [B Complex-Vitamin B12] Tablet 1 tab PO DAILY DHA 200 mg capsule PO magnesium 250 mg tablet 250 mg PO DAILY cholecalciferol (vitamin D3) 50 mcg (2,000 unit) capsule 50 mcg PO DAILY Referrals: Maci Cuellar, PARTS SALES REPRESENTATIVE-BC [Primary Care Provider] - Print Language: Surinamese
[2024-02-03 08:52] VITALS: BP 118/79; PULSE 82; RESP 18; TEMP 37.2; O2SAT 100
[2024-02-03 09:21] LABS: MANUAL DIFF FLAG NO
[2024-02-03 09:23] LABS: Basophils Percent Auto 0.6 % (0-2); Eosinophils Absolute Auto 0.3 X10*3/uL (0.0-0.4); Eosinophils Percent Auto 5.5 % (0-4); Hematocrit 37.2 % (37.0-47.0); Hemoglobin 12.8 g/dl (12.0-16.0); Imm Gran Abs Auto 0.01 X10*3/uL (0.00-0.03); Imm Gran Pct Auto 0.2 % (0.0-0.4); Lymphocytes Absolute Auto 1.6 X10*3/uL (1.2-4.9); Lymphocytes Percent Auto 32.5 % (20-40); Mean Corpuscular HGB Conc 34.4 g/dl (31.0-35.0); Mean Corpuscular Hemoglobin 31.6 pg (27.0-33.0); Mean Corpuscular Volume 91.9 fL (80.0-98.0); Mean Platelet Volume 8.2 fL (9.4-12.3); Monocytes Absolute Auto 0.5 X10*3/uL (0.1-1.2); Monocytes Percent Auto 10.8 % (2-11); Neutrophils Absolute Auto 2.5 x10*3/uL (2.0-8.3); Neutrophils Percent Auto 50.4 % (45-73); Platelet Count 270 X10*3/uL (160-400); Red Blood Count 4.05 X10*6/uL (4.20-5.50); White Blood Count 4.9 X10*3/uL (4.8-10.8)
[2024-02-03 09:32] LABS: D Dimer High Sensitivity 152 NG/ML
[2024-02-03 09:37] LABS: Alanine Aminotransferase 38 U/L (0-31); Albumin Level 4.4 g/dL (3.5-5.0); Alkaline Phosphatase 98 U/L (39-117); Anion Gap 15 (12-20); Aspartate Amino Transferase 35 U/L (5-31); Bilirubin Direct 0.1 mg/dL (0.0-0.5); Bilirubin Total 0.4 mg/dL (0.0-1.0); Blood Urea Nitrogen 8 mg/dL (9-16); Calcium 8.9 mg/dL (8.4-10.2); Carbon Dioxide 25 mmol/L (22-29); Chloride 106 mmol/L (96-108); Creatinine Clr Calc Pharmacy 102.6; Estimated Glomerular Filt Rate > 60; Glucose Random 95 mg/dL (60-115); Lipase 28 U/L (8-78); Potassium 4.6 mmol/L (3.3-5.1); Sodium 141 mmol/L (135-145); Total Protein 7.6 g/dL (6.5-8.0)
[2024-02-03 09:42] LABS: B Type Natriuretic Peptide 12 pg/mL (<100)
[2024-02-03 09:44] LABS: Troponin-I High Sensitivity < 2.7 ng/L (<3.5-17.0)
[2024-02-03 09:53] LABS: Appearance Urine Clear; Color Urine Yellow; Glucose Urine UA Negative (Negative); Leukocyte Esterase Urine Negative (Negative); Nitrite Urine Negative (Negative); Specific Gravity - Urine <= 1.005 (1.005-1.025); UMIC TRIGGER UACC YES; Urine Blood Trace (Negative); Urine Ketones Negative (Negative); Urine Protein Negative (Neg-Trace)
[2024-02-03 09:54] LABS: UPreg QC Valid YES; Urine Pregnancy NEGATIVE (NEGATIVE)
[2024-02-03 09:55] LABS: Bacteria Urine None Seen (None Seen); Hyaline Casts Urine 0-2 /LPF (0-2); RBC Urine 0-2 /HPF (0-2); Squamous Epithelial Cell Urine 0-2 /HPF (0-2); WBC Urine 0-5 /HPF (0-5)
[2024-02-03 09:56] VITALS: PULSE 78
[2024-02-03 10:02] LABS: Amphetamine Screen Urine Not Detected (Not Detect); Barbiturates, Urine Not Detected (Not Detect); Benzodiazepines Screen Urine Not Detected (Not Detect); Buprenorphine Scr Not Detected (Not Detect); Cannabinoid Screen Urine Not Detected (Not Detect); Cocaine Screen Urine Not Detected (Not Detect); Fentanyl, urine Not Detected (Not Detect); Methadone Screen, Urine Not Detected (Not Detect); Opiate Screen Urine Not Detected (Not Detect); Oxycodone Screen Urine Not Detected (Not Detect); Phencyclidine Screen Urine Not Detected (Not Detect)
[2024-02-03 10:12] LABS: Influenza A PCR NEGATIVE (Negative); Influenza B PCR NEGATIVE (Negative); Resp Syncy Virus RNA Qual PCR NEGATIVE (Negative); SARS COV2 PCR INHOUSE NEGATIVE (Negative)
[2024-02-03 11:55] VITALS: BP 112/75; PULSE 81; RESP 13; TEMP 36.9; O2SAT 100
[2024-02-03 12:44] VITALS: BP 112/74; PULSE 80; RESP 18; TEMP 36.7; O2SAT 98
== END 2024-02-03 12:46 | disposition home or self-care (01) ==
PROVIDERS: Emergency Provider Emergency Medicine; PCP Nurse Practitioner Family
DX: R07.89 Other chest pain (principal); R06.02 Shortness of breath; Z79.899 Other long term (current) drug therapy; Z51.81 Encounter for therapeutic drug level monitoring; Z03.818 Encounter for observation for suspected exposure to other biological agents ruled out
CPT/HCPCS: 0241U; 36415; 71045; 80048; 80076; 80307; 81001; 81025; 83690; 83880; 84484; 85025; 85379; 93005; 99284; 99285

== ENCOUNTER → 2024-02-03 08:24 | Outpatient (BNV) | payer OTHER, SELFPAY | PROVIDERS: Emergency Provider Emergency Medicine; PCP Nurse Practitioner Family; Visit Provider Internal Medicine | DX: R07.9 Chest pain, unspecified (principal) | CPT/HCPCS: 93010 ==

== ENCOUNTER 2024-03-27 11:56 | Outpatient (AMB) | payer OTHER, SELFPAY ==
--- NOTE | 2024-03-27 11:57 | MHC.PC.OV ---
Vital Signs 03/27/24 11:59 Height 5 ft 6 in BP 124/66 Blood Pressure Location Rt brachial Position Sitting Respiration 14 Pulse 86 Pulse Source Pulse Oximeter Pulse Oximetry (%) 100 Oxygen Delivery Method Room Air Comment patient refuse to get a weight Intake Visit Reasons: CPE Intake Note: physical Allergies prednisone Adverse Reaction (Verified 03/27/24 12:11) Anxiety Medication List - Last Reconciled 03/27/24 by Maci Cuellar [employer]- cholecalciferol (vitamin D3) 50 mcg PO DAILY docosahexaenoic acid ( DHA) mg PO gabapentin 300 mg PO TID loratadine 10 mg PO DAILY magnesium 250 mg PO DAILY omeprazole 20 mg PO DAILY vitamin B complex (B Complex-Vitamin B12 tablet) 1 tab PO DAILY Tobacco use date assessed: 03/27/24 Dental Screening Dental Screen Date: 09/07/23 HPI HPI Comments History of Present Illness Details 29-year-old female with alcoholism, GERD, MDD, benzodiazepine dependence, borderline personality disorder, benign paroxysmal positional vertigo, cochlear implant on the right due to congenital sensorineural hearing loss, migraine aura without headache, panic attacks, severe somatoform disorder Social: working at [employer]: ED visit 01/2024 for SOB and tightness in chest Specialists 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 Tetanus 10/2016 Here today for CPE. No longer active w/ Neuro, does not feel she needs to see them. Migraines well controlled. Remain active w/ counselor and psych. States she has a counselor but no prescriber. She is self tapering off Gabapentin. Stopped zoloft on her own. Cont to drink wine daily. Takes PPI for GERD. Does not want to take; when she misses doses she develops sob, anxiety chest pain, bloating and reflux. Reports active w GI in the past with EGD. Optho - due for eye exam in May 2024, wears cheaters some times Skin - no issues Labs done 02/03/24 reviewed - and WNL. Plan: [place] [facility] [place] [facility] [place] Get flu shot at the pharmacy Cont to take all meds as directed. RTO 1 year, CPE, sooner PRN PFSH Medical History Acute bronchitis Open wound of right knee Cellulitis of buttock, left Cochlear implant in place Encounter to establish care Panic attacks Severe anxiety Anxiety Surgical History No pertinent past surgical history Family History Other Mental health disorder Social History Household Members: Spouse Housing: Condominium Alcohol intake: current Alcohol intake frequency: holidays/special occasions only Patient Tobacco Use Status: Never used Tobacco e-Cigarette/Vaping Use: Never Used Second Hand Smoke Exposure: No service: No 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al status: employed 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 Cognitive needs: No Hearing needs: No Vision needs: No Questionnaire PHQ-9 Over the last 2 weeks, how often have you been bothered by any of the following problems? 1. Little interest or pleasure in doing things: several days 2. Feeling down, depressed, or hopeless: not at all 3. Trouble falling or staying asleep, or sleeping too much: several days 4. Feeling tired or having little energy: several days 5. Poor appetite or overeating: not at all 6. Feeling bad about yourself - or that you are a failure or have let yourself or your family down: not at all 7. Trouble concentrating on things, such as reading the newspaper or watching television: not at all 8. Moving or speaking so slowly that other people could have noticed. Or the opposite - being so fidgety or restless that you have been moving around a lot more than usual: not at all 9. Thoughts that you would be better off or of hurting yourself in some way: not at all Total score: 3 Depression Screening Interpretation: Negative Depression Screening Done: Yes 64694 - PHQ-9 Billing: Yes Source: Developed by Drs. Spencer Gimenez, Rosanne Gonzalez, Boaz Ford and colleagues, with an educational jose r from [employer]. Thrive Questionnaire Date Thrive assessed: 03/27/24 I am a: Patient What is your living situation today?: I have a steady place to live Within the past 12 months, did the food you bought not last and you didn't have the money to get more?: Sometimes True Within the past 12 months, did you worry whether your food would run out before you got money to buy more?: Never true Do you have trouble paying for medicines?: No Do you have trouble getting transportation to medical appointments?: No Do you have trouble paying your heating and electricity bill?: No Do you have trouble taking care of your child, family member or friend?: No Do you have trouble with day-to-day activities such as bathing, preparing meals, shopping, managing finances, etc.?: No Are you currently unemployed and looking for a job?: No Are you interested in more education?: No Please select the resources that you would like help with: None Currently or been in a relationship where the following occur: No concerns reported THRIVE Score: 1 AUDIT C Alcohol Use Questionnaire (AUDIT-C) 1. How often do you have a drink containing alcohol?: 4 or more times a week 2. How many drinks containing alcohol do you have on a typical day when you are drinking?: 5 or 6 3. How often do you have six or more drinks on one occasion?: Daily or almost daily Total Score: 10 Score Reviewed/Action Taken: Yes ROMY-7 AMB Questionnaire ROMY-7 Date ROMY - 7 assessed: 03/27/24 Feeling nervous, anxious, or on edge: 2 = More than half the days Not being able to stop or control worryin = More than half the days Worrying too much about different things: 2 = More than half the days Trouble relaxin = More than half the days Being so restless that it is hard to sit still: 1 = Several days Becoming easily annoyed or irritable: 1 = Several days Feeling afraid as if something awful might happen: 1 = Several days Total ROMY-7 score (0-4 normal; 5-9 mild; 10-14 moderate; 15-21 severe): 11 Source: Developed by Drs. Spencer Gimenez, Rosanne Gonzalez, Boaz Ford and colleagues, with an educational jose r from [employer]. ROMY-7 Assessment Billing ROMY-7 Assessment Tool: ROMY-7 Assessment 11057 Review of Systems Const Details: Constitutional: Denies fever. Eye: Denies eye pain. ENMT: Denies sore throat and nasal congestion. Respiratory: Denies cough. Gastrointestinal: Denies nausea, vomiting or abdominal pain. Cardiovascular: Denies syncope. Genitourinary: Denies dysuria. Musculoskeletal: Denies back pain and extremity pain. Neurologic: Denies headaches, confusion, and weakness. Psychiatric: Denies suicidal thoughts Allergy/ Immunologic: Denies impaired immunity. Physical exam (Primary Care) Vital Signs: Last Vital Signs Pulse 86 03/27/24 11:59 Resp 14 03/27/24 11:59 BP 124/66 03/27/24 11:59 Pulse Ox 100 03/27/24 11:59 Oxygen Delivery Method Room Air 03/27/24 11:59 Tobacco/Smoking Status: Tobacco use Status Tobacco use date assessed 03/27/24 03/27/24 12:02 Patient Tobacco Use Status Never used Tobacco 03/27/24 12:02 e-Cigarette/Vaping Use Never Used 03/27/24 12:02 PHQ-9: PHQ-9 Score PHQ-9: Total score 3 03/27/24 12:29 Depression Screening Interpretation: Negative Thrive Assessment: Date of Thrive Assessment Date Thrive assessed 03/27/24 03/27/24 12:05 Currently or been in a relationship where the following occur: No concerns reported Const Other: General: Well developed, well nourished, in no acute distress. Appears stated age. Head: Normocephalic, atraumatic. Eyes: Pupils are equal, round and reactive to light and accommodation. Conjunctivae are clear. Vision grossly normal. Ears: TMs clear AU, EACS WNL Nose: Patent, without discharge. Mouth: There are no ulcers or lesions noted. No inflammation, no post nasal drip, no plaques nor exudates. Neck: Supple, no adenopathy or thyromegaly. Lungs: Clear to auscultation bilaterally. No rales, rhonchi or wheeze noted. Good air flow in all lyle. Heart: Regular rate and rhythm. No murmurs, click, rubs or gallops are noted. Abdomen: Bowel sounds present in all quadrants. The abdomen is soft, nontender, with no masses or organomegaly noted. No hernias are noted. Musculoskeletal: Joints are nontender, without swelling, redness, or effusions. Range of motion is observed to be normal. Pulses: Peripheral pulses are equal and palpable bilaterally. Extremities: No clubbing, cyanosis nor edema is noted. Neurologic: Gait and station normal. Cranial Nerves 2-12 intact. Motor strength grossly symmetrical and intact. No sensory loss. Balance normal. Skin: No ulcers, or lesions noted. Turgor is good. Skin color is good. Hair and nails are without abnormalities. Eczema on fingers on Left hand Psych: Anxious, odd affect, pleasant. Assessment and Plan Assessment & Plan (1) Encounter for general adult medical examination without abnormal findings: Code(s): Z00.00 - Encounter for general adult medical examination without abnormal findings (2) Alcohol use disorder: Code(s): F10.90 - Alcohol use, unspecified, uncomplicated (3) Somatoform disorder: Code(s): F45.9 - Somatoform disorder, unspecified (4) ROMY (generalized anxiety disorder): Code(s): F41.1 - Generalized anxiety disorder (5) Borderline personality disorder: Comment: Encouraged to continue close follow-up with this team for her medication management Code(s): F60.3 - Borderline personality disorder (6) GERD (gastroesophageal reflux disease): Code(s): K21.9 - Gastro-esophageal reflux disease without esophagitis Qualifiers: Esophagitis presence: without esophagitis Qualified Code(s): K21.9 - Gastro-esophageal reflux disease without esophagitis (7) Cochlear implant in place: Comment: right Code(s): Z96.21 - Cochlear implant status (8) Eczema: Code(s): L30.9 - Dermatitis, unspecified Qualifiers: Eczema type: flexural Qualified Code(s): L20.82 - Flexural eczema (9) Migraine: Code(s): G43.909 - Migraine, unspecified, not intractable, without status migrainosus Qualifiers: Migraine type: unspecified Status migrainosus presence: without status migrainosus Intractability: not intractable Qualified Code(s): G43.909 - Migraine, unspecified, not intractable, without status migrainosus Orders: Referrals Addiction Medicine Referral WARREN Zhu- F10.90 - Alcohol use, unspecified, uncomplicated Medications: Changed From gabapentin qam 100 mg PO DAILY 30 days 30 caps 1RF To gabapentin qam 300 mg PO TID WARREN [place] Patient Instructions: Health screenings for women You should visit your health care provider from time to time, even if you are healthy. The purpose of these visits is to: Screen for medical issues Assess your risk for future medical problems Encourage a healthy lifestyle Update vaccinations and other preventive care services Help you get to know your provider in case of an illness Information Even if you feel fine, you should still see your provider for regular checkups. These visits can help you avoid problems in the future. For example, the only way to find out if you have high blood pressure is to have it checked regularly. High blood sugar and high cholesterol levels also may not have any symptoms in the early stages. A simple blood test can check for these conditions. There are specific times when you should see your provider or receive specific health screenings. The [place] Preventive Services Task Force publishes a list of recommended screenings. Below are screening guidelines for women ages 18 to 39. BLOOD PRESSURE SCREENING Your blood pressure should be checked at least once every 3 to 5 years if: Your blood pressure is in the normal range (top number less than 120 mm Hg and bottom number less than 80 mm Hg) You don't have risk factors for high blood pressure Ask your provider if you need your blood pressure checked more often if: The top number is 120 to 129 mm Hg or the bottom number is 70 to 79 mm Hg You have diabetes, heart disease, kidney problems, are overweight, or have certain other health conditions You have a first-degree relative with high blood pressure You are Black You had high blood pressure during a If the top number is 130 mm Hg or greater or the bottom number is 80 mm Hg or greater, this is considered stage 1 hypertension. Schedule an appointment with your provider to learn how you can reduce your blood pressure. Watch for blood pressure screenings in your area. Ask your provider if you can stop in to have your blood pressure checked. BREAST CANCER SCREENING Experts do not agree about the benefits of breast self-exams in finding breast cancer or saving lives. Talk to your provider about what is best for you. A screening mammogram is not recommended for most women under age 40. Your provider may discuss and recommend mammograms, MRI scans, or ultrasounds if you have an increased risk for breast cancer, such as: A mother or sister who had breast cancer at a young age (most often starting screening earlier than the age the close relative was diagnosed) You carry a high-risk genetic marker CERVICAL CANCER SCREENING Cervical cancer screening should start at age 21 years unless your provider advises otherwise. After the first test: Women ages 21 through 29 should have a Pap test every 3 years. Exoprts do not agree on whether HPV testing is recommended for this age group. Women ages 30 through 65 should be screened with either a Pap test every 3 years or the HPV test every 5 years or both tests every 5 years (called cotesting ). Women who have been treated for precancer (cervical dysplasia) should continue to have Pap tests for 20 years after treatment or until age 65, whichever is longer. If you have had your uterus and cervix removed (total hysterectomy), and you have not been diagnosed with cervical cancer or precancer (high grade cervical neoplasia), you do not need cervical cancer screening. CHOLESTEROL SCREENING Cholesterol screening should begin at: Age 45 for women with no known risk factors for coronary heart disease Age 20 for women with known risk factors for coronary heart disease Repeat cholesterol screening should take place: Every 5 years for women with normal cholesterol levels More often if changes occur in lifestyle (including weight gain and diet) More often if you have diabetes, heart disease, kidney problems, or certain other conditions DIABETES SCREENING You should be screened for diabetes starting at age 35 and then repeated every 3 years if you have no risk factors for diabetes. Screening may need to start earlier and be repeated more often if you have other risk factors for diabetes, such as: You have a first degree relative with diabetes. You are overweight or have obesity. You have high blood pressure, prediabetes, or a history of heart disease. Screening for diabetes should be done if you are planning to become and you are overweight and have other risk factors such as high blood pressure. DENTAL EXAM Go to the dentist once or twice every year for an exam and cleaning. Your dentist will evaluate if you need more frequent visits. EYE EXAM Have an eye exam every 5 to 10 years before age 40. If you have vision problems, have an eye exam every 2 years or more often if recommended by your provider. You should have an eye exam that includes an examination of your retina (back of your eye) at least every year if you have diabetes. IMMUNIZATIONS Commonly needed vaccines include: Flu shot: get one every year. COVID-19 vaccine: ask your provider what is best for you. Tetanus-diphtheria and acellular pertussis (Tdap) vaccine: have one at or after age 19 as one of your tetanus-diphtheria vaccines if you did not receive it as an adolescent. Tetanus-diphtheria: have a booster (or Tdap) every 10 years. Varicella vaccine: receive 2 doses if you never had chickenpox or the varicella vaccine. Hepatitis B vaccine: receive 2, 3, or 4 doses, depending on your exact circumstances. Measles, mumps, and rubella (MMR) vaccine: receive 1 to 2 doses if you are not already immune to MMR. Your provider can tell you if you are immune. Ask your provider about the human papillomavirus (HPV) vaccine if: You have not received the HPV vaccine in the past You have not completed the full vaccine series (you should catch up on this shot) Ask your provider if you should receive other immunizations if you have certain health problems that increase your risk for some diseases such as pneumonia. INFECTIOUS DISEASE SCREENING Women who are sexually active should be screened for chlamydia and gonorrhea up until age 25. Women 25 years and older should be screened for chlamydia and gonorrhea if at high risk. Screening for hepatitis C: All adults ages 18 to 79 should get a one-time test for hepatitis C. people should be screened at every . Screening for human immunodeficiency virus (HIV): All people ages 15 to 65 should get a one-time test for HIV. Depending on your lifestyle and medical history, you may also need to be screened for infections such as syphilis and HIV, as well as other infections. PHYSICAL EXAM All adults should visit their provider from time to time, even if they are healthy. The purpose of these visits is to: Screen for disease Assess your risk of future medical problems Encourage a healthy lifestyle Update your vaccinations and other preventive care services Maintain a relationship with a provider in case of an illness Your height, weight, and BMI should be checked at every exam. During your exam, your provider may ask you about: Depression and anxiety Diet and exercise Alcohol and tobacco use Safety issues, such as using seat belts, smoke detectors, and intimate partner violence Your medicines and risk for interactions SKIN SELF-EXAM Your provider may check your skin for signs of skin cancer, especially if you're at high risk, such as if you: Have had skin cancer before Have close relatives with skin cancer Have a weakened immune system OTHER SCREENING Talk with your provider about colon cancer screening if you have a strong family history of colon cancer or polyps, or if you have had inflammatory bowel disease or polyps yourself. Routine bone density screening of women under 40 is not recommended. Coding Level of Care Code Est Pt Prev Care 18-39y(11761) Diagnoses Encounter for general adult medical examination without abnormal findings Z00.00 Alcohol use disorder F10.90 Somatoform disorder F45.9 ROMY (generalized anxiety disorder) F41.1 Borderline personality disorder F60.3 Gastroesophageal reflux disease without esophagitis K21.9 Esophagitis presence: without esophagitis Cochlear implant in place Z96.21 Flexural eczema L20.82 Eczema type: flexural Migraine without status migrainosus, not intractable, unspecified migraine type G43.909 Migraine type: unspecified Status migrainosus presence: without status migrainosus Intractability: not intractable Additional Codes ROMY-7 Assessment Billing - ROMY-7 Assessment Tool: ROMY-7 Assessment 91349 ([id number])
[2024-03-27 11:59] VITALS: BP 124/66; PULSE 86; RESP 14; O2SAT 100
== END 2024-03-27 12:24 | disposition home or self-care (01) ==
PROVIDERS: PCP Nurse Practitioner Family; Visit Provider Nurse Practitioner Family
DX: Z00.00 Encounter for general adult medical examination without abnormal findings (principal); F10.90 Alcohol use, unspecified, uncomplicated; F45.9 Somatoform disorder, unspecified; F41.1 Generalized anxiety disorder; F60.3 Borderline personality disorder; K21.9 Gastro-esophageal reflux disease without esophagitis; Z96.21 Cochlear implant status; L20.82 Flexural eczema; G43.909 Migraine, unspecified, not intractable, without status migrainosus

== ENCOUNTER → 2024-03-27 11:56 | Outpatient (BNVA) | payer OTHER, SELFPAY | PROVIDERS: PCP Nurse Practitioner Family; Visit Provider Nurse Practitioner Family | DX: Z00.00 Encounter for general adult medical examination without abnormal findings (principal); F10.90 Alcohol use, unspecified, uncomplicated; F45.9 Somatoform disorder, unspecified; F41.1 Generalized anxiety disorder; F60.3 Borderline personality disorder; K21.9 Gastro-esophageal reflux disease without esophagitis; L20.82 Flexural eczema; G43.909 Migraine, unspecified, not intractable, without status migrainosus; Z79.899 Other long term (current) drug therapy; Z96.21 Cochlear implant status | CPT/HCPCS: 96127 ==

== ENCOUNTER 2024-05-08 13:53 | Outpatient (AMB) | payer OTHER, SELFPAY ==
--- NOTE | 2024-05-08 14:14 | MHC.AM.SUB ---
Intake Visit Reasons: AUD Allergies prednisone Adverse Reaction (Verified 03/27/24 12:11) Anxiety HPI HPI AUD: Details: Patient presents for intake and evaluation July stopped drinking for 3 months then picked up again drinking a bottle of wine daily for the last 5 years starts drinking every evening after work drinks more on the weekends -2 bottles increase in anxiety with alcohol (day after) Denies any history alcohol withdrawal seizure family history of AUD --both sides of family Treeatment history: Reports that she was previously prescribed Xanax for several years and entered [facility] treatment to taper off. She reports 2 admissions, and states both admissions were traumatic due to severity of symptoms She was transitioned from xanax to gabapentin (this was 3 years ago) Started at 3200mg of gabapentin 1200mg for 2 years then in September down to 900mg Takes gabapentin 900mg daily This taper was being managed by her previous psychiatrist, who she is no longer able to see due to provider not taking her insurance She is seeking a new psychiatrist BH History: In addition to the information above, she reports history of numerous antidepressant trials She currently has a therapist at [facility] virtual visits every week Medical History: She reports OTC medications Claritin and prilosec magnesium at HS no BC no other medical history 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 , 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 -he has expressed concern regarding her drinking Discussed goals of treatment, she states wanting to completely abstain from alcohol for now She is not interested in ATS admission due to previous experiences with ATS Discussed tapering alcohol intake and methods for doing so Discussed NOT tapering gapapentin any further while she is tapering her alcohol intake [facility] Medical History Acute bronchitis Open wound of right knee Cellulitis of buttock, left Cochlear implant in place Encounter to establish care Panic attacks Severe anxiety Anxiety Surgical History No pertinent past surgical history Family History Other Mental health disorder Social History Household Members: Spouse Housing: Condominium Alcohol intake: current Alcohol intake frequency: holidays/special occasions only Patient Tobacco Use Status: Never used Tobacco e-Cigarette/Vaping Use: Never Used Second Hand Smoke Exposure: No service: No 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al status: employed 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 Cognitive needs: No Hearing needs: No Vision needs: No Review of Systems Const Reports as per HPI Physical Exam Const General: cooperative, healthy appearing and well groomed Nutritional Appearance: average body habitus Psych Appearance: well kempt Speech and movement: Slurred speech present Affect: Blunted affect present Results AMB 14 Panel Urine Drug Screen Urine Marijuana (THC) Negative Last Edit by Tonya Angela RN on 05/08/24 16:35 Urine Cocaine Negative Last Edit by Tonya Angela RN on 05/08/24 16:35 Urine Morphine Negative Last Edit by Tonya Angela RN on 05/08/24 16:35 Urine Methamphetamine Negative Last Edit by Tonya Angela RN on 05/08/24 16:35 Urine Amphetamine Negative Last Edit by Tonya Angela RN on 05/08/24 16:35 Urine Benzodiazepine Negative Last Edit by Tonya Angela RN on 05/08/24 16:35 Urine Barbiturates Negative Last Edit by Tonya Angela RN on 05/08/24 16:35 Urine Methadone Negative Last Edit by Tonya Angela RN on 05/08/24 16:35 Urine Buprenorphine Negative Last Edit by Tonya Angela RN on 05/08/24 16:35 Urine Tricyclic Antidepressant Negative Last Edit by Tonya Angela RN on 05/08/24 16:35 Urine MDMA Negative Last Edit by Tonya Angela RN on 05/08/24 16:35 Urine Oxycodone Negative Last Edit by Tonya Angela RN on 05/08/24 16:35 Urine Phencyclidine Negative Last Edit by Tonya Angela RN on 05/08/24 16:35 Urine Propoxyphene Negative Last Edit by Tonya Angela RN on 05/08/24 16:35 Results Reviewed Results Reviewed: Laboratory Last Values POC Urine Buprenorphine Negative 05/08/24 16:27 POC Urine Morphine Negative 05/08/24 16:27 POC Urine Oxycodone Negative 05/08/24 16:27 POC Urine Methadone Negative 05/08/24 16:27 POC Urine Propoxyphene Negative 05/08/24 16:27 POC Urine Barbiturates Negative 05/08/24 16:27 POC U Tricyclic Antidpr Negative 05/08/24 16:27 POC Urine PCP Negative 05/08/24 16:27 POC Ur Amphetamines Negative 05/08/24 16:27 POC Ur Methamphetamine Negative 05/08/24 16:27 POC Urine MDMA Negative 05/08/24 16:27 POC Ur Benzodiazepine Negative 05/08/24 16:27 POC Urine Cocaine Negative 05/08/24 16:27 POC Ur Marijuana (THC) Negative 05/08/24 16:27 Assessment & Plan Assessment & Plan (1) Alcohol use disorder: Code(s): F10.90 - Alcohol use, unspecified, uncomplicated Category: Medical Plan: Risk reduction discussion safer drinking reviewed discussed IOP admission follow up 2 -3 weeks Orders: Orders AMB 14 Panel Urine Drug Screen 05/08/24 Z51.81 - Encounter for therapeutic drug level monitoring
== END 2024-05-08 15:00 | disposition home or self-care (01) ==
LOC: HO.HCC 13:53
PROVIDERS: PCP Nurse Practitioner Family; Visit Provider Nurse Practitioner Psychiatric/Mental Health
DX: F10.90 Alcohol use, unspecified, uncomplicated (principal)
CPT/HCPCS: 99204

== ENCOUNTER → 2024-05-08 13:53 | Outpatient (BNVA) | payer OTHER, SELFPAY | PROVIDERS: PCP Nurse Practitioner Family; Visit Provider Nurse Practitioner Psychiatric/Mental Health | DX: F10.90 Alcohol use, unspecified, uncomplicated (principal) | CPT/HCPCS: 80307 ==

== ENCOUNTER 2024-06-06 10:37 | Outpatient (AMB) | payer OTHER, SELFPAY ==
--- NOTE | 2024-06-06 10:55 | A.OFFPC_ITS ---
Vital Signs 06/06/24 10:58 Height 5 ft 6 in Weight 139 lb 6 oz BMI 22.5 BP 110/68 Blood Pressure Location Rt brachial Position Sitting Pulse 93 Pulse Source Pulse Oximeter Pulse Oximetry (%) 99 Oxygen Delivery Method Room Air Intake Visit Reasons: Breathing issues Intake Note: Chest tightness, trouble breathing. Has acid refiux. Tightening Machine Operator Required: No Allergies prednisone Adverse Reaction (Verified 06/06/24 10:56) Anxiety Tobacco use date assessed: 03/27/24 Dental Screening Dental Screen Date: 09/07/23 HPI HPI Comments History of Present Illness Details 29-year-old female with alcoholism, GERD , MDD, benzodiazepine dependence, borderline personality disorder, benign paroxysmal positional edwin tigo, cochlear implant on the right due to congenital sensorineural hearing loss, migraine aura without headache, panic attacks, severe somatoform disorder presenting for chest pain Reports chest tightness, shortness of breath. Does endorse some heartburn. Started really bad about one week ago. She does have some epigastric burning, feels fullness after eating. Not on any OCPs. Deep dry cough with deep inspirations. No sick symptoms. Has been on omeprazole for years but symptoms are increased Social: working at [employer] Hospitalizations: ED visit 01/2024 for SOB and tightness in chest ROS CONSTITUTIONAL: Denies weight loss, fever and chills. HEENT: Denies changes in vision and hearing. RESPIRATORY: Denies SOB and cough. CV: Denies palpitations and CP GI: Denies abdominal pain, nausea, vomiting and diarrhea. : Denies dysuria and urinary frequency. MSK: Denies new myalgia and joint pain. SKIN: Denies rash and pruritus. NEUROLOGICAL: Denies headache PSYCHIATRIC: Denies recent changes in mood. PHYSICAL EXAM: GENERAL: Alert and oriented x 3. NAD EYES: EOMI. Anicteric. HENT: Moist mucous membranes. No scleral icterus. No cervical lymphadenopathy. LUNGS: Clear to auscultation bilaterally. CARDIOVASCULAR: Regular rate and rhythm. No murmur. No JVD. ABDOMEN: Soft, non-tender +bs EXTREMITIES: No edema. Non-tender. SKIN: No rashes or lesions. Warm. NEUROLOGIC: No focal neurological deficits. CN II-XII grossly intact PSYCHIATRIC: Cooperative. Appropriate mood and affect [facility] Medical History Acute bronchitis Open wound of right knee Cellulitis of buttock, left Cochlear implant in place Encounter to establish care Panic attacks Severe anxiety Anxiety Surgical History (Reviewed 06/06/24 @ 11: by Deidra Peguero MD) No pertinent past surgical history Family History Other Mental health disorder Social History (Reviewed 06/06/24 @ 11: by Deidra Peguero MD) Household Members: Spouse Housing: Condominium Alcohol intake: current Alcohol intake frequency: holidays/special occasions only Patient Tobacco Use Status: Never used Tobacco e-Cigarette/Vaping Use: Never Used Second Hand Smoke Exposure: No service: No 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al status: employed 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 [place] Cognitive needs: No Hearing needs: No Vision needs: No Questionnaire PHQ-9 Over the last 2 weeks, how often have you been bothered by any of the following problems? 1. Little interest or pleasure in doing things: several days 2. Feeling down, depressed, or hopeless: several days 3. Trouble falling or staying asleep, or sleeping too much: several days 4. Feeling tired or having little energy: more than half the days 5. Poor appetite or overeating: several days 6. Feeling bad about yourself - or that you are a failure or have let yourself or your family down: not at all 7. Trouble concentrating on things, such as reading the newspaper or watching television: several days 8. Moving or speaking so slowly that other people could have noticed. Or the opposite - being so fidgety or restless that you have been moving around a lot more than usual: several days 9. Thoughts that you would be better off or of hurting yourself in some way: not at all Total score: 8 Depression Screening Interpretation: Positive Depression Screening Follow-up: Community Mental Health Worker F/U Depression Screening Done: Yes 65134 - PHQ-9 Billing: Yes Source: Developed by Drs. Spencer Gimenez, Rosanne Gonzalez, Boaz Ford and colleagues, with an educational jose r from [employer]. Thrive Questionnaire Date Thrive assessed: 03/27/24 I am a: Patient What is your living situation today?: I have a steady place to live Within the past 12 months, did the food you bought not last and you didn't have the money to get more?: Never true Within the past 12 months, did you worry whether your food would run out before you got money to buy more?: Never true Do you have trouble paying for medicines?: No Do you have trouble getting transportation to medical appointments?: No Do you have trouble paying your heating and electricity bill?: No Do you have trouble taking care of your child, family member or friend?: No Do you have trouble with day-to-day activities such as bathing, preparing meals, shopping, managing finances, etc.?: No Are you currently unemployed and looking for a job?: No Are you interested in more education?: No Please select the resources that you would like help with: None Currently or been in a relationship where the following occur: No concerns reported THRIVE Score: 0 AUDIT C Alcohol Use Questionnaire (AUDIT-C) 1. How often do you have a drink containing alcohol?: 4 or more times a week 2. How many drinks containing alcohol do you have on a typical day when you are drinking?: 3 or 4 3. How often do you have six or more drinks on one occasion?: Monthly Total Score: 7 ROMY-7 AMB Questionnaire ROMY-7 Date ROMY - 7 assessed: 03/27/24 Feeling nervous, anxious, or on edge: 2 = More than half the days Not being able to stop or control worryin = More than half the days Worrying too much about different things: 2 = More than half the days Trouble relaxin = More than half the days Being so restless that it is hard to sit still: 2 = More than half the days Becoming easily annoyed or irritable: 1 = Several days Feeling afraid as if something awful might happen: 1 = Several days Total ROMY-7 score (0-4 normal; 5-9 mild; 10-14 moderate; 15-21 severe): 12 Source: Developed by Drs. Spencer Gimenez, Rosanne Gonzalez, Boaz Ford and colleagues, with an educational jose r from [employer]. Physical exam (Primary Care) Vital Signs: Last Vital Signs Pulse 93 06/06/24 10:58 BP 110/68 06/06/24 10:58 Pulse Ox 99 06/06/24 10:58 Oxygen Delivery Method Room Air 06/06/24 10:58 BMI result Body Mass Index 22.5 Tobacco/Smoking Status: Tobacco use Status Tobacco use date assessed 03/27/24 06/06/24 11:02 Patient Tobacco Use Status Never used Tobacco 06/06/24 11:02 e-Cigarette/Vaping Use Never Used 06/06/24 11:02 PHQ-9: PHQ-9 Score PHQ-9: Total score 8 06/06/24 11:02 Depression Screening Interpretation: Positive Depression Screening Follow-up: Community Mental Health Worker F/U Thrive Assessment: Date of Thrive Assessment Date Thrive assessed 03/27/24 06/06/24 11:02 Currently or been in a relationship where the following occur: No concerns reported Coding Level of Care Code Est Pt Level 4 (91522) Diagnoses Chest pain, unspecified type R07.9 Chest pain type: unspecified Additional Codes PHQ-9 - 70056 - PHQ-9 Billing: Yes ([id number]) Assessment & Plan Assessment & Plan (1) Chest pain: Code(s): R07.9 - Chest pain, unspecified Category: Medical Qualifiers: Chest pain type: unspecified Qualified Code(s): R07.9 - Chest pain, unspecified Plan: Chest pain with associated shortness of breath Worse with eating, worse when supine Non exertional Most likely GI related. EKG reviewed and normal. No prior echo-ordered Referral to GI. Increase omeprazoel to 40mg bid x one week then 20mg bid x one week then return to 20mg once daily Orders: Orders CA echo transthoracic complete Today R06.02 - Shortness of breath, R07.9 - Ch est pain, unspecified Referrals Gastroenterology Referral K21.9 - Gastro-esophageal reflux disease without esophagitis, R10.13 - Epigastric pain
[2024-06-06 10:58] VITALS: BP 110/68; PULSE 93; O2SAT 99; BMI 22.5
== END 2024-06-06 11:48 | disposition home or self-care (01) ==
PROVIDERS: PCP Nurse Practitioner Family; Visit Provider Internal Medicine
DX: R07.9 Chest pain, unspecified (principal)

== ENCOUNTER → 2024-06-06 10:37 | Outpatient (BNVA) | payer OTHER, SELFPAY | PROVIDERS: PCP Nurse Practitioner Family; Visit Provider Internal Medicine | DX: R07.9 Chest pain, unspecified (principal); K21.9 Gastro-esophageal reflux disease without esophagitis; R10.13 Epigastric pain; Z79.899 Other long term (current) drug therapy | CPT/HCPCS: 96127 ==

== ENCOUNTER 2024-06-20 11:30 | Outpatient (AMB) | payer OTHER, SELFPAY ==
--- NOTE | 2024-06-20 11:41 | A.OFFPC_ITS ---
Vital Signs 06/20/24 11:43 Height 5 ft 6 in BMI Reason not done Patient refused/unable BP 116/64 Blood Pressure Location Rt brachial Position Sitting Respiration 13 Pulse 92 Pulse Source Pulse Oximeter Temp 97.2 F Temp Source Skin Pulse Oximetry (%) 100 Oxygen Delivery Method Room Air Intake Visit Reasons: est/nail infection Intake Note: Patient complaining of feeling really sick, sob, and weak, Patient also recently got her nails done and they hurt and itch x 2 days Occupational Therapy Manager Required: No Allergies prednisone Adverse Reaction (Verified 06/20/24 12:01) Anxiety Medication List - Last Reconciled 06/20/24 by Maci Cuellar, MOTORBOAT MECHANIC INBOARD/OUTBOARD- cephalexin 500 mg PO Q12H 7 days cholecalciferol (vitamin D3) 50 mcg PO DAILY clotrimazole 1% 1 appl topical BID gabapentin 300 mg PO TID loratadine 10 mg PO DAILY magnesium 250 mg PO DAILY omeprazole 20 mg PO DAILY Tobacco use date assessed: 03/27/24 Dental Screening Dental Screen Date: 09/07/23 HPI HPI Comments History of Present Illness Details 29-year-old female with alcoholism, GERD , MDD, benzodiazepine dependence, borderline personality disorder, benign paroxysmal positional vertigo, cochlear implant on the right due to congenital sensorineural hearing loss, migraine aura without headache, panic attacks, severe somatoform disorder Specialists Psychiatry and counselor Nylon Operator Neurology Surgeries: None Health maintenance Self reports up-to-date on vaccinations including her flu shot Pap smear (-) 2022 at [facility] per pt.Tetanus IZ 10/2016. Here today with complaints of a concern for infection around her nail on her left middle finger. Reports that she got her nails done in a salon last Wednesday shortly after this she started to develop pain and yellow drainage from her left middle finger coming from underneath the nail bed. She reports that the finger feels like it is throbbing. She was also noticed scaling of the skin on her fingertips underneath the nail bed affecting most of her fingers. She is worried about an infection. She also reports that she has general URI symptoms to include a sore throat cough and general malaise. Reports that she did go to a walk-in clinic 1 week ago and had a chest x-ray done however she is uncertain of the results at this time. Exam Awake alert NAD Sclera and conjunctiva clear bilat MMM, pharynx mild erythema no exudate RRR LS CTAB Left middle finger w/ erythema and mild edema around nail luis, reports pain w/ palpation, similar appearance though not as back affecting the Left ring finger. The skin of her fingertips on all 10 fingers is white and flaking consistent with a fungal infection Plan Advised that she needs to have the nails removed immediately. She should then use [id number] antifungal nail [place] to help the nails recover. I have prescribed a topical antifungal cream to be used twice per day to her hands until the skin on her fingertips is better. I have sent in a prescription for cephalexin 500 mg PO b.i.d. x7 days to cover for the suspected infection affecting the left middle and left ring finger. I emphasized that if she does not have the nails removed and if she continues to go to the salon that her symptoms will worsen. I do not believe that she needs any further treatment for her URI symptoms. She can follow up with the urgent care to get her chest x-ray results. Her exam was ultimately benign today. Educated on reasons to return to the office or seek additional care. This note is constructed using voice recognition software. While every effort has been made to ensure accuracy in activity therapy teacher, still errors may have been included Sometimes, these errors may affect the content or meaning of the given sentence . [facility], [facility] Medical History Acute bronchitis Open wound of right knee Cellulitis of buttock, left Cochlear implant in place Encounter to establish care Panic attacks Severe anxiety Anxiety Surgical History No pertinent past surgical history Family History Other Mental health disorder Social History Household Members: Spouse Housing: Condominium Alcohol intake: current Alcohol intake frequency: holidays/special occasions only Patient Tobacco Use Status: Never used Tobacco e-Cigarette/Vaping Use: Never Used Second Hand Smoke Exposure: No service: No 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al status: employed 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 [place] Cognitive needs: No Hearing needs: No Vision needs: No Questionnaire Thrive Questionnaire Date Thrive assessed: 06/06/24 I am a: Patient What is your living situation today?: I have a steady place to live Within the past 12 months, did the food you bought not last and you didn't have the money to get more?: Never true Within the past 12 months, did you worry whether your food would run out before you got money to buy more?: Never true Do you have trouble paying for medicines?: No Do you have trouble getting transportation to medical appointments?: No Do you have trouble paying your heating and electricity bill?: No Do you have trouble taking care of your child, family member or friend?: No Do you have trouble with day-to-day activities such as bathing, preparing meals, shopping, managing finances, etc.?: No Are you currently unemployed and looking for a job?: No Are you interested in more education?: No Please select the resources that you would like help with: None Currently or been in a relationship where the following occur: No concerns reported THRIVE Score: 0 ROMY-7 AMB Questionnaire ROMY-7 Date ROMY - 7 assessed: 03/27/24 Source: Developed by Drs. Spencer Gimenez, Rosanne Gonzalez, Boaz Ford and colleagues, with an educational jose r from [employer]. Physical exam (Primary Care) Vital Signs: Last Vital Signs Temp 97.2 F 06/20/24 11:43 Pulse 92 06/20/24 11:43 Resp 13 06/20/24 11:43 BP 116/64 06/20/24 11:43 Pulse Ox 100 06/20/24 11:43 Oxygen Delivery Method Room Air 06/20/24 11:43 Tobacco/Smoking Status: Tobacco use Status Tobacco use date assessed 03/27/24 06/20/24 11:45 Patient Tobacco Use Status Never used Tobacco 06/20/24 11:45 e-Cigarette/Vaping Use Never Used 06/20/24 11:45 Thrive Assessment: Date of Thrive Assessment Date Thrive assessed 06/06/24 06/20/24 11:45 Currently or been in a relationship where the following occur: No concerns reported Coding Level of Care Code Est Pt Level 4 (56795) Complex EM visit Add On G2211 Diagnoses Paronychia of left middle finger L03.012 Fungal skin infection B36.9 Viral URI J06.9 Assessment & Plan Assessment & Plan (1) Paronychia of left middle finger: Code(s): L03.012 - Cellulitis of left finger Category: Medical (2) Fungal skin infection: Code(s): B36.9 - Superficial mycosis, unspecified Category: Medical (3) Viral URI: Code(s): J06.9 - Acute upper respiratory infection, unspecified Category: Medical Plan: . Plan . Medications: New clotrimazole 1% apply to hands until the skin is normal 1 appl topical BID 30 grams 0RF cephalexin 500 mg PO Q12H 7 days 14 caps 0RF
[2024-06-20 11:43] VITALS: BP 116/64; PULSE 92; RESP 13; TEMP 36.2; O2SAT 100
== END 2024-06-20 11:59 | disposition home or self-care (01) ==
PROVIDERS: PCP Nurse Practitioner Family; Visit Provider Nurse Practitioner Family
DX: L03.012 Cellulitis of left finger (principal); B36.9 Superficial mycosis, unspecified; J06.9 Acute upper respiratory infection, unspecified

== ENCOUNTER → 2024-06-20 11:30 | Outpatient (BNVA) | payer OTHER, SELFPAY | PROVIDERS: PCP Nurse Practitioner Family; Visit Provider Nurse Practitioner Family ==

== ENCOUNTER 2024-06-21 09:05 | Inpatient (IN) | payer OTHER, SELFPAY ==
[2024-06-21] VITALS (7 sets, daily range): BP systolic 108–132; BP diastolic 63–98; PULSE 100–130; RESP 16–22; TEMP 36.7–37; O2SAT 95–99; BMI 23.7
--- NOTE | ~2024-06-21 | XR_ITS ---
EXAMINATION: XR CHEST CLINICAL INFORMATION: chest tightness COMPARISON: 02/03/2024 TECHNIQUE: 2 views of the chest were obtained. FINDINGS: No significant abnormality is noted involving the heart, lungs, mediastinum, bony thorax or soft tissues. XR/XR chest 2V IMPRESSION: Unremarkable examination. Electronically signed by: Rahat Lyons MD 06/21/2024 11:11 AM [facility]
--- NOTE | 2024-06-21 09:20 | ECG_ITS ---
Test Reason : TACHCARDIA Blood Pressure : / mmHG Vent. Rate : 112 BPM Atrial Rate : 112 BPM P-R Int : 140 ms QRS Dur : 082 ms QT Int : 330 ms P-R-T Axes : 024 055 062 degrees QTc Int : 450 ms Sinus tachycardia Nonspecific T wave abnormality Abnormal ECG When compared to the previous EKG of Non specific T wave changes noted Referred By: Generic ED Physician Electronically Signed By:FENG HICKEY MD
--- NOTE | 2024-06-21 10:34 | ED.GENADULT ---
HPI - General Adult General Chief complaint: Allergic Reaction Stated complaint: diff breathing possibly due to meds Time Seen by Provider: 06/21/24 10:25 Source: patient and RN notes reviewed Mode of arrival: ambulatory Limitations: no limitations History of Present Illness ED Provider: Dipika Wen PA-C HPI narrative: This is a 29-year-old female who presents emergency department for evaluation of increased anxiety as well as chest tightness. Patient states that this has been going on for the last 3 weeks. Patient states that 3 weeks ago she had acrylic nails placed. She states that her fingers became itching swollen and painful. She states that she had them removed. She states that she then went to a different nail salon where she had acrylic nails placed on her nails again on Wednesday, she states that she felt as though her nails were itchy, swollen, and painful. She states that the next day she had them removed. She states that she followed up with her primary care physician where she was prescribed clotrimazole, as well as Keflex. She states that she took her 1st dose of Keflex this morning and feels as though her throat is closing. She states itchiness. She feels like her heart is racing. She denies any fevers, chills, abdominal pain, nausea, vomiting or diarrhea. She states that she does drink alcohol, states that she drank 2 glasses of wine last night, which is her typical usage > upon further questioning she has been drinking approximately a bottle of wine per night, last drink was last night. She states that she does have a history of alcohol withdrawal like symptoms, including increasing anxiety, and shakiness, she states that she has been drinking alcohol every night since September. She denies any history of alcohol withdrawal seizures. She has spoken to someone about her alcohol use in the past. No other complaints or concerns at this time. MD complaint: Chest tightness Onset (ago): week(s) Radiation: non-radiation Quality: aching Pain Consistency: constant Relieving factors: none Exacerbating factors: none Associated symptoms: chest pain and cough Treatments prior to arrival: none Related Data Home Medications ?Medication ?Instructions ?Recorded ?Confirmed loratadine 10 mg tablet 10 mg PO DAILY 08/03/20 06/21/24 omeprazole 20 mg capsule,delayed 20 mg PO DAILY 08/03/20 06/21/24 release cholecalciferol (vitamin D3) 50 50 mcg PO DAILY 04/22/22 06/21/24 mcg (2,000 unit) capsule magnesium 250 mg tablet 250 mg PO BEDTIME 04/22/22 06/21/24 gabapentin 300 mg capsule 300 mg PO TID 06/21/24 06/21/24 Allergies Allergy/AdvReac Type Severity Reaction Status Date / Time cephalexin Allergy Difficulty Verified 06/21/24 09:18 Breathing prednisone AdvReac Anxiety Verified 06/21/24 09:18 Review of Systems Review of Systems: Yes all other systems are reviewed and are negative Constitutional: Constitutional: Reports as per [facility] Past Medical History Medical History Acute bronchitis Open wound of right knee Cellulitis of buttock, left Cochlear implant in place Encounter to establish care Panic attacks Severe anxiety Anxiety Surgical History No pertinent past surgical history Family History Family History Other Mental health disorder Social History Social History Household Members: Family Housing: House Do you presently have visiting nurse or other home services: No Alcohol intake: current Alcohol intake frequency: 3 or more drinks per day Alcohol type: wine Patient Tobacco Use Status: Never used Tobacco e-Cigarette/Vaping Use: Never Used Second Hand Smoke Exposure: No service: No 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al status: employed 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 [place] Cognitive needs: No Hearing needs: No Vision needs: No Physical Exam ED Vital Signs: Vital Signs - 24 hr 06/21/24 09:16 06/21/24 11:35 06/21/24 11:45 Temperature 98.4 F Pulse Rate 117 H 130 H 100 Respiratory Rate 20 20 20 Blood Pressure 132/73 130/98 H Pulse Oximetry 99 99 99 Oxygen Delivery Method Room Air Room Air Room Air 06/21/24 11:55 06/21/24 14:00 Temperature 98.1 F 98.6 F Pulse Rate 110 H 107 H Respiratory Rate 22 H 16 Blood Pressure 130/82 109/70 Pulse Oximetry 98 95 Oxygen Delivery Method Room Air Room Air BMI result Body Mass Index 23.7 Const General: cooperative, comfortable and no acute distress Orientation/consciousness: patient oriented x3 Limitations: no limitations HENMT Head: Yes normal to inspection, Yes normocephalic and Yes atraumatic Ears: hearing grossly normal bilaterally General nose exam: Normal external nose present Face and sinus: Yes normal facial exam Mouth: Normal oral and palatal mucosa present, oropharynx normal and moist mucous membranes Throat: Yes posterior oropharynx normal Eyes General: appearance normal, both eyes and all related structures Eyelids: Yes eyelids normal Conjunctivae: conjunctivae normal Sclerae: sclerae normal Pupils: Equal, round and reactive pupils present EOM: EOMs intact bilaterally Neck Neck: Yes normal visual inspection, Yes full ROM and Yes no lymphadenopathy Lymphatic: no lymphadenopathy noted Chest Chest palpation & inspection: normal inspection of the chest Resp Effort & Inspection: normal respiratory effort and able to speak in complete sentences Auscultation: clear to auscultation bilaterally, no crackles, no rales, no rhonchi and no wheezes Cardio Rate: regular rate Rhythm: regular rhythm Heart sounds: S1 normal heart sound present and S2 normal heart sound present GI Inspection: Yes normal to inspection Skin Other: nailbeds with no obvious erythema, warmth, or edema, She does have some skin peeling around nailbed concerning for allergic vs fungal infection General skin exam: no rashes or lesions noted Trauma: no lacerations or abrasions Wounds: no wounds Neuro General: patient oriented x3 and moves all extremities Cranial nerves: Yes Equal, round and reactive pupils present Extrem General: Yes normal to inspection Right upper extremity: normal to inspection Left upper extremity: normal to inspection Right lower extremity: normal to inspection Left lower extremity: normal to inspection Psych Appearance: well kempt Mental Status: mental status grossly normal Speech and movement: Pressured speech present Affect: Anxious affect present Attitude: Guarded attititude/behavior present and Avoids eye contact (attititude/behavior) Thought process: Normal thought process present Thought content: Normal thought content present Insight: Fair insight present (Psych) Judgement: Fair judgement present (Psych) Course Reevaluation(s) Reevaluation #1: Overall workup today was reassuring. Pt remains to be tachycardic without any known diagnoses. Neg ddimer. Pt does admit to etoh abuse, and symptoms likely are contributatory to alcohol withdrawal, negative ethanol level. Pt discussed with addiction services. Will admit for alcohol withdrawal, palpitations. Medications Administered Generic Name Dose Route Start Last Admin Trade Name Frank PRN Reason Stop Dose Admin Acetaminophen 650 mg 06/21/24 16:38 06/21/24 17:15 Acetaminophen 325 Mg Tablet PO 650 mg Q6H PRN Administration Pain, Mild (Pain Scale 1-3), fever or headache Gabapentin 300 mg 06/21/24 21:00 06/22/24 14:17 Gabapentin 300 Mg Capsule PO 300 mg TID KATHIE Administration Hydroxyzine HCl 25 mg 06/21/24 16:38 06/22/24 10:14 Hydroxyzine Hcl 25 Mg Tablet PO 25 mg Q6H PRN Administration anxiety/restlessness Lactated Ringer's 1,000 mls @ 100 mls/hr 06/21/24 16:45 06/22/24 12:11 Lr IVCONT 100 mls/hr .Q10H KATHIE Infusion Loratadine 10 mg 06/22/24 09:00 06/22/24 09:06 Loratadine 10 Mg Tablet PO 10 mg DAILY KATHIE Administration Phenobarbital 45 mg 06/22/24 09:00 06/22/24 09:06 Phenobarbital 15 Mg Tablet PO 06/23/24 21:01 45 mg BID KATHIE Administration Silver Sulfadiazine 1 appl 06/21/24 21:00 06/22/24 10:19 Silver Sulfadiazine 1 % Cream 20 Gm Tube TOPICAL Not Given BID KATHIE Sodium Chloride 3 ml 06/22/24 00:00 06/22/24 15:19 0.9 % Sodium Chloride Flush 3 Ml Syringe IVFLUSH Not Given QSHIFT KATHIE Vitamin D 50 mcg 06/22/24 09:00 06/22/24 09:06 Cholecalciferol (Vitamin D3) 25 Mcg Tablet PO 50 mcg DAILY KATHIE Administration Discontinued Medications Generic Name Dose Route Start Last Admin Trade Name Frank PRN Reason Stop Dose Admin Diphenhydramine HCl 50 mg 06/21/24 10:35 06/21/24 11:08 Diphenhydramine Hcl 50 Mg/Ml Vial IVPUSH 06/21/24 10:36 50 mg ONCE ONE Administration Famotidine 20 mg 06/21/24 10:35 06/21/24 11:08 Famotidine/Pf 20 Mg/2 Ml Vial IVPUSH 06/21/24 10:36 20 mg ONCE ONE Administration Lorazepam 1 mg 06/21/24 11:27 06/21/24 11:33 Lorazepam 2 Mg/Ml Vial IVPUSH 06/21/24 11:28 1 mg ONCE ONE Administration Methylprednisolone Sodium Succinate 80 mg 06/21/24 10:35 06/21/24 11:08 Methylprednisolone Sod Succ 125 Mg/2 Ml Vial IVPUSH 06/21/24 10:36 80 mg ONCE ONE Administration Omeprazole 20 mg 06/21/24 16:45 06/22/24 06:45 Omeprazole 20 Mg Capsule. PO 20 mg DAILY@0630 KATHIE Administration Phenobarbital Sodium 237 mg 06/21/24 15:00 06/21/24 15:28 Phenobarbital Sodium 130 Mg/Ml Im Once IM 06/21/24 15:01 237 mg ONCE ONE Administration Phenobarbital Sodium 178 mg 06/21/24 18:00 06/21/24 21:38 Phenobarbital Sodium 130 Mg/Ml Vial Im Q3hx2 IM 06/21/24 21:01 178 mg Q3H KATHIE Administration Phenobarbital Sodium 130 mg 06/22/24 14:29 06/22/24 15:17 Phenobarbital Sodium 130 Mg/Ml Vial IM 06/22/24 14:30 130 mg ONCE ONE Administration Medical Decision Making Medical Decision Making MDM Narrative: This is a 29-year-old female who presents emergency department with concerns for chest tightness. She has had these symptoms for the last 3 weeks. She states that this morning she took Keflex as she has been treated for a nailbed infection, she states that she took her 1st dose and feels as though she was very anxious. On arrival, she was tachycardic at 1:17 a.m., she is speaking full sentences however does appear to be anxious. She took 1 dose of Benadryl, 25 mg prior to her arrival which provided her with no relief. Her airway is widely patent. No wheezes, or stridor noted. She has had chest tightness for the last 3 weeks therefore will obtain labs, EKG, troponin although ACS is less likely. She had a similar reaction with Keflex last year where she had a panic attack and her symptoms feel similar. Differential Diagnosis Differential Diagnoses: The differential diagnosis associated with the presentation includes Allergic reaction, anaphylaxis-unlikely, pneumonia, URI Lab Data [facility] Lab Attestation statement: I reviewed the patient's lab results. No leukocytosis, stable H&H, troponin negative. Dimer negative. electrolytes WNL. clear utox. UA noninfectious. 06/21/24 11:08 06/22/24 05:35 Labs: Lab Results 06/21/24 06/21/24 Range/Units 11:08 13:28 WBC 8.8 (4.8-10.8) X10*3/uL RBC 4.21 (4.20-5.50) X10*6/uL Hgb 13.5 (12.0-16.0) g/dl Hct 37.4 (37.0-47.0) % MCV 88.8 (80.0-98.0) fL MCH 32.1 (27.0-33.0) pg MCHC 36.1 H (31.0-35.0) g/dl RDW 11.7 (11.0-16.0) % Plt Count 360 D (160-400) X10*3/uL MPV 8.4 L (9.4-12.3) fL Immature Gran % (Auto) 0.3 (0.0-0.4) % Neut % (Auto) 78.7 H (45-73) % Lymph % (Auto) 13.6 L (20-40) % [place] % (Auto) 6.2 (2-11) % Eos % (Auto) 1.0 (0-4) % Baso % (Auto) 0.2 (0-2) % Lymph # (Auto) 1.2 (1.2-4.9) X10*3/uL [place] # (Auto) 0.6 (0.1-1.2) X10*3/uL Eos # (Auto) 0.1 (0.0-0.4) X10*3/uL Baso # (Auto) 0.0 (0.0-0.2) X10*3/uL Abs Immat Gran (auto) 0.03 (0.00-0.03) X10*3/uL Absolute Neuts (auto) 6.9 (2.0-8.3) x10*3/uL Absolute Nucleated RBC 0.000 (0.0-0.012) X10*3/uL Nucleated RBC % (auto) 0.0 (0.0-0.2) /100WBC D-Dimer High Sensitivty < 150 NG/ML Sodium 138 (135-145) mmol/L Potassium 3.8 (3.3-5.1) mmol/L Chloride 106 (96-108) mmol/L Carbon Dioxide 25 (22-29) mmol/L Anion Gap 11 L (12-20) BUN 10 (9-16) mg/dL Creatinine 0.79 (0.5-1.4) mg/dL Estim Creat Clear Calc 96.6 Estimated GFR > 60 Random Glucose 137 H (60-115) mg/dL Calcium 9.7 D (8.4-10.2) mg/dL Magnesium 2.4 (1.6-2.6) mg/dL Total Bilirubin 0.4 (0.0-1.0) mg/dL Direct Bilirubin 0.1 (0.0-0.5) mg/dL AST 29 (5-31) U/L ALT 24 (0-31) U/L Alkaline Phosphatase 81 (39-117) U/L Troponin I High Sens < 2.7 (<3.5-17.0) ng/L Total Protein 7.9 (6.5-8.0) g/dL Albumin 4.5 (3.5-5.0) g/dL Lipase 21 (8-78) U/L TSH 1.70 (0.32-4.0) uIU/mL Beta HCG, Quant < 2 mIU/mL Urine Color Yellow Urine Appearance Clear Urine pH 7.0 (5.0-9.0) Ur Specific [place] 1.010 (1.005-1.025) Urine Protein Negative (Neg-Trace) mg/dL Urine Glucose (UA) 100 H (Negative) mg/dL Urine Ketones Negative (Negative) mg/dL Urine Blood Negative (Negative) Urine Nitrite Negative (Negative) Ur Leukocyte Esterase Trace H (Negative) Urine RBC 0-2 (0-2) /HPF Urine WBC 0-5 (0-5) /HPF Ur Squamous Epith Cells 3-5 (0-2) /HPF Urine Bacteria 1+ (None Seen) Hyaline Casts 0-2 (0-2) /LPF Urine Opiates Screen Not Detected (Not Detect) Ur Buprenorphine Scrn Not Detected (Not Detect) ng/mL Ur Oxycodone Screen Not Detected (Not Detect) ng/mL Urine Methadone Screen Not Detected (Not Detect) ng/mL Urine Fentanyl Screen Not Detected (Not Detect) Ur Barbiturates Screen Not Detected (Not Detect) Ur Phencyclidine Scrn Not Detected (Not Detect) Ur Amphetamines Screen Not Detected (Not Detect) U Benzodiazepines Scrn Not Detected (Not Detect) Urine Cocaine Screen Not Detected (Not Detect) U Marijuana (THC) Screen Not Detected (Not Detect) Ethyl Alcohol < 10 mg/dL Influenza Type A (PCR) NEGATIVE (Negative) Influenza Type B (PCR) NEGATIVE (Negative) RSV RNA Qual (PCR) NEGATIVE (Negative) SARS-CoV-2 RNA (RT-PCR) NEGATIVE (Negative) Radiology Impression Discussion of test interpretation with radiology: I have reviewed the radiologist's reading. External Record Review External record reviewed: Inpatient record, Office record, Outpatient record, Prior outpatient labs, Prior outpatient radiology, Primary care record and Outside ED record Discharge Plan Discharge Clinical Impression: Alcohol withdrawal Qualifiers: Complication of substance-induced condition: uncomplicated Qualified Code(s): F10.930 - Alcohol use, unspecified with withdrawal, uncomplicated Patient Disposition: Admitted As Inpatient Interventions: Admission Worksheet (ED) Last Done: 06/22/24 05:58 Discharge Date/Time: 06/22/24 08:11
[2024-06-21] MEDS: diphenhydrAMINE HCL 50 MG/ML VIAL IVPUSH (11:08)
[2024-06-21] MEDS: methylPREDNISolone Sod Succ 125 MG/2 ML VIAL 80 MG IVPUSH (11:08)
[2024-06-21] MEDS: Famotidine/PF 20 MG/2 ML VIAL IVPUSH (11:08)
[2024-06-21 11:15] LABS: MANUAL DIFF FLAG NO
[2024-06-21 11:17] LABS: Basophils Percent Auto 0.2 % (0-2); Eosinophils Absolute Auto 0.1 X10*3/uL (0.0-0.4); Hematocrit 37.4 % (37.0-47.0); Hemoglobin 13.5 g/dl (12.0-16.0); Imm Gran Abs Auto 0.03 X10*3/uL (0.00-0.03); Imm Gran Pct Auto 0.3 % (0.0-0.4); Lymphocytes Absolute Auto 1.2 X10*3/uL (1.2-4.9); Lymphocytes Percent Auto 13.6 % (20-40); Mean Corpuscular HGB Conc 36.1 g/dl (31.0-35.0); Mean Corpuscular Hemoglobin 32.1 pg (27.0-33.0); Mean Corpuscular Volume 88.8 fL (80.0-98.0); Mean Platelet Volume 8.4 fL (9.4-12.3); Monocytes Absolute Auto 0.6 X10*3/uL (0.1-1.2); Monocytes Percent Auto 6.2 % (2-11); Neutrophils Absolute Auto 6.9 x10*3/uL (2.0-8.3); Neutrophils Percent Auto 78.7 % (45-73); Platelet Count 360 X10*3/uL (160-400); Red Blood Count 4.21 X10*6/uL (4.20-5.50); Red Cell Distribution Width 11.7 % (11.0-16.0); White Blood Count 8.8 X10*3/uL (4.8-10.8)
[2024-06-21 11:18] LABS: Appearance Urine Clear; Color Urine Yellow; Glucose Urine UA 100 mg/dL (Negative); Leukocyte Esterase Urine Trace (Negative); Nitrite Urine Negative (Negative); UMIC TRIGGER UACC YES; Urine Blood Negative (Negative); Urine Ketones Negative (Negative); Urine Protein Negative (Neg-Trace)
[2024-06-21 11:20] LABS: Bacteria Urine 1+ (None Seen); Hyaline Casts Urine 0-2 /LPF (0-2); RBC Urine 0-2 /HPF (0-2); WBC Urine 0-5 /HPF (0-5)
[2024-06-21 11:27] LABS: Amphetamine Screen Urine Not Detected (Not Detect); Barbiturates, Urine Not Detected (Not Detect); Benzodiazepines Screen Urine Not Detected (Not Detect); Buprenorphine Scr Not Detected (Not Detect); Cannabinoid Screen Urine Not Detected (Not Detect); Cocaine Screen Urine Not Detected (Not Detect); Fentanyl, urine Not Detected (Not Detect); Methadone Screen, Urine Not Detected (Not Detect); Opiate Screen Urine Not Detected (Not Detect); Oxycodone Screen Urine Not Detected (Not Detect); Phencyclidine Screen Urine Not Detected (Not Detect)
[2024-06-21 11:33] LABS: Alanine Aminotransferase 24 U/L (0-31); Albumin Level 4.5 g/dL (3.5-5.0); Alkaline Phosphatase 81 U/L (39-117); Anion Gap 11 (12-20); Aspartate Amino Transferase 29 U/L (5-31); Bilirubin Direct 0.1 mg/dL (0.0-0.5); Bilirubin Total 0.4 mg/dL (0.0-1.0); Blood Urea Nitrogen 10 mg/dL (9-16); Calcium 9.7 mg/dL (8.4-10.2); Carbon Dioxide 25 mmol/L (22-29); Chloride 106 mmol/L (96-108); Creatinine Clr Calc Pharmacy 96.6; Estimated Glomerular Filt Rate > 60; Ethanol < 10 mg/dL; Glucose Random 137 mg/dL (60-115); Lipase 21 U/L (8-78); Magnesium 2.4 mg/dL (1.6-2.6); Potassium 3.8 mmol/L (3.3-5.1); Sodium 138 mmol/L (135-145); Total Protein 7.9 g/dL (6.5-8.0)
[2024-06-21] MEDS: LORazepam 2 MG/ML VIAL 1 MG IVPUSH (11:33)
[2024-06-21 11:37] LABS: Troponin-I High Sensitivity < 2.7 ng/L (<3.5-17.0)
[2024-06-21 12:04] LABS: HCG Quantitative < 2 mIU/mL
--- NOTE | 2024-06-21 12:05 | PC.NURSE ---
Pt presented to ED via home, reports she is taking keflex for a skin/nail infection but feels she is having a reaction to it. Pt having a severe panic attack, repeating asking am I going to , am I going to have a heart attack . Tachy and anxious, +carpopedal spasms, SOB. Pt continually reassured by RNs, medicated per MAR, Vitals monitored. Pt adamantly denies having SI or HI. Reports daily alcohol use of 2-3 drinks per day, last drink last night. No hx of withdrawals or seizures. Does have hx of severe anxiety, reports she used to be dependent on Xanax. No drug use, feels safe at home. Alert and oriented. Changed over into safety clothing as precation.
[2024-06-21 12:21] LABS: Influenza A PCR NEGATIVE (Negative); Influenza B PCR NEGATIVE (Negative); Resp Syncy Virus RNA Qual PCR NEGATIVE (Negative); SARS COV2 PCR INHOUSE NEGATIVE (Negative)
[2024-06-21 13:59] LABS: D Dimer High Sensitivity < 150 NG/ML
--- NOTE | 2024-06-21 14:18 | MHC.RECOVRN ---
Met with pt in [facility] after cleared by CARE Team. Pt had presented to ED for nail infection/?allergic reaction but also reported alcohol use and severe anxiety. Pt sitting on stretcher, awake, alert, easily engages in conversation, visibly anxious with slight tremors. Pt reports alcohol use, approx 1 bottle wine (750 mL) every night since September 2023. Pt reports history of ATS x 2 for alcohol and benzodiazepine use. Pt denies hospital admissions for alcohol withdrawal, denies history of withdrawal seizures. Currently, pt very anxious and would like to stop drinking in a safe environment. Denies other questions/concerns for t/w. Discussed with NOAH Subramanian, plan to present for medical admission. Will continue to follow.
--- NOTE | 2024-06-21 15:00 | PC.NURSE ---
Provider alerted of ongoing [facility].
[2024-06-21] MEDS: PHENobarbitaL sodium 130 MG/ML IM ONCE 237 MG IM (15:28)
--- NOTE | 2024-06-21 15:32 | MHC.CARE ---
RAD Team completed [facility] referral for this pt, will follow up tomorrow
--- NOTE | 2024-06-21 15:37 | PC.NURSE ---
Security went through pts belongings, able to keep them at bedside.
--- NOTE | 2024-06-21 16:43 | PM.IMHP ---
History of Present Illness Date of Service: 06/21/24 Chief Complaint: Alcohol withdrawal A 29 years old lady with PMH of alcohol abuse, ROMY, BPPV, GERD among others who is presenting with palpitations, tremors and not feeling well. The patient reports 3 weeks of chest tightness and palpitations with no reported No chest pain, palpitations, SOB, nausea, vomiting, diarrhea or urinary symptoms. Showing signs of alcohol withdrawal. started on PHenobarb protocol. last drink last night. drinks 3-4 glasses of wine. She also reports pain in her fingers and allergic reaction. seems very stressed out and anxious. Admitted for further work up and treatment. Review of Systems Review of Systems: No fever, chills or weakness repprting no chest pain but palpitation No shortness of breath or coughing No abdominal pain, nausea or vomiting No urinary symptoms finger tips pain Yes all other systems are reviewed and are negative [facility] Medical History Acute bronchitis Open wound of right knee Cellulitis of buttock, left Cochlear implant in place Encounter to establish care Panic attacks Severe anxiety Anxiety Family History Other Mental health disorder Surgical History No pertinent past surgical history Social History Household Members: Spouse Housing: Condominium Alcohol intake: current Alcohol intake frequency: 3 or more drinks per day Alcohol type: wine Patient Tobacco Use Status: Never used Tobacco Smoked in Last 30 Days: No e-Cigarette/Vaping Use: Never Used Second Hand Smoke Exposure: No Use of substances other than those prescribed or required for medical reasons: No Advance Directives: No Advance Directives Information Provided: Yes service: No 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al status: employed 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 [place] Cognitive needs: No Hearing needs: No Vision needs: No Meds Allergies Allergy/AdvReac Type Severity Reaction Status Date / Time cephalexin Allergy Difficulty Verified 06/21/24 09:18 Breathing prednisone AdvReac Anxiety Verified 06/21/24 09:18 Active Medications: Current Medications Pharmacy Consult (Consult Rx Etoh Phenob Im/Po) 1 each MISCELLANE ONCE PRN; Protocol PRN Reason: Consult order Phenobarbital (Phenobarbital 15 Mg Tablet) 45 mg PO BID [facility] Stop: 06/23/24 21:01 Phenobarbital (Phenobarbital 30 Mg Tablet) 30 mg PO BID [facility] Stop: 06/25/24 21:01 Phenobarbital (Phenobarbital 30 Mg Tablet) 30 mg PO DAILY KATHIE Stop: 06/27/24 09:01 Phenobarbital Sodium (Phenobarbital Sodium 130 Mg/Ml Vial Im Q3hx2) 178 mg IM Q3H KATHIE Stop: 06/21/24 21:01 Home Medications ?Medication ?Instructions ?Recorded ?Confirmed ?Last Taken ?Type loratadine 10 mg tablet 10 mg PO DAILY 08/03/20 06/20/24 04/13/22 History omeprazole 20 mg capsule,delayed 20 mg PO DAILY 08/03/20 06/20/24 04/13/22 History release cholecalciferol (vitamin D3) 50 50 mcg PO DAILY 04/22/22 06/20/24 Unknown History mcg (2,000 unit) capsule magnesium 250 mg tablet 250 mg PO DAILY 04/22/22 06/20/24 Unknown History gabapentin 100 mg capsule 300 mg PO TID 03/27/24 06/20/24 Unknown History Physical Exam Vital Signs and Narrative: Vital Signs: Last Vital Signs Temp 98.6 F 06/21/24 14:00 Pulse 107 H 06/21/24 15:28 Resp 20 06/21/24 15:28 BP 119/73 06/21/24 15:28 Pulse Ox 97 06/21/24 15:28 O2 Del Method Room Air 06/21/24 15:28 BMI result Body Mass Index 23.7 Const: Other: Constitutional : Awake, interactive, anxious, not in distress Neck : Normal inspection, Supple Cardiovascular : RRR, no JVP, no lower extremity edema Respiratory : good bilateral air entry, no crackles, wheezes or rhonchi Gastrointestinal: soft, lax, Normal bowel sounds, Non tender Skin : Warm, Dry Neurological : Alert & oriented x3, No focal deficit , tremors Results Labs 06/21/24 11:08 06/21/24 11:08 Labs: Laboratory Results - last 24 hr 06/21/24 06/21/24 11:08 13:28 MCV 88.8 MCH 32.1 MCHC 36.1 H RDW 11.7 Plt Count 360 D MPV 8.4 L Immature Gran % (Auto) 0.3 Neut % (Auto) 78.7 H Lymph % (Auto) 13.6 L [place] % (Auto) 6.2 Eos % (Auto) 1.0 Baso % (Auto) 0.2 Lymph # (Auto) 1.2 [place] # (Auto) 0.6 Eos # (Auto) 0.1 Baso # (Auto) 0.0 Abs Immat Gran (auto) 0.03 Absolute Neuts (auto) 6.9 Absolute Nucleated RBC 0.000 Nucleated RBC % (auto) 0.0 D-Dimer High Sensitivty < 150 Anion Gap 11 L Estim Creat Clear Calc 96.6 Estimated GFR > 60 Random Glucose 137 H Calcium 9.7 D Magnesium 2.4 Total Bilirubin 0.4 Direct Bilirubin 0.1 AST 29 ALT 24 Alkaline Phosphatase 81 Troponin I High Sens < 2.7 Total Protein 7.9 Albumin 4.5 Lipase 21 TSH 1.70 Beta HCG, Quant < 2 Urine Color Yellow Urine Appearance Clear Urine pH 7.0 Ur Specific [place] 1.010 Urine Protein Negative Urine Glucose (UA) 100 H Urine Ketones Negative Urine Blood Negative Urine Nitrite Negative Ur Leukocyte Esterase Trace H Urine RBC 0-2 Urine WBC 0-5 Ur Squamous Epith Cells 3-5 Urine Bacteria 1+ Hyaline Casts 0-2 Urine Opiates Screen Not Detected Ur Buprenorphine Scrn Not Detected Ur Oxycodone Screen Not Detected Urine Methadone Screen Not Detected Urine Fentanyl Screen Not Detected Ur Barbiturates Screen Not Detected Ur Phencyclidine Scrn Not Detected Ur Amphetamines Screen Not Detected U Benzodiazepines Scrn Not Detected Urine Cocaine Screen Not Detected U Marijuana (THC) Screen Not Detected Ethyl Alcohol < 10 Influenza Type A (PCR) NEGATIVE Influenza Type B (PCR) NEGATIVE RSV RNA Qual (PCR) NEGATIVE SARS-CoV-2 RNA (RT-PCR) NEGATIVE Imaging Radiologist's Impressions: Impressions Chest X-Ray 06/21/24 10:38 IMPRESSION: Unremarkable examination. Electronically signed by: Rahat Lyons MD 06/21/2024 11:11 AM [facility] Assessment and Plan (1) Alcohol withdrawal: Qualifiers: Complication of substance-induced condition: uncomplicated Qualified Code(s): F10.930 - Alcohol use, unspecified with withdrawal, uncomplicated Status: Acute (2) Alcohol use disorder: Status: Acute (3) ROMY (generalized anxiety disorder): Status: Acute Plan A 29 years old lady with PMH of alcohol abuse, ROMY, BPPV, GERD among others who is presenting with palpitations, tremors and not feeling well. Palpitations sinus tachycardia 2/2 dehydration, withdrawal , anxiety give IV fluids anxiolytics; avoid benzos monitor Alcohol abuse with withdrawal [facility] Phenobarb protocol addiction team chest tightness likely 2/2 GERD given negative Trop and EKG changes Omeprazole finger wounds traumatic, silver sulfasalazine cream continue rest of meds once med rec done DVT PPx Lovenox The patient will likely need 2 overnight hospital stay for treatment of withdrawal and evaluation of palpitations. Quality Stroke Does the patient have a stroke diagnosis?: No VTE Prior VTE?: No VTE Risk Level:: Medical - moderate - high VTE Device Contraindication: Treatment Not Indicated VTE Drug Contraindication: N/A - Med Ordered
--- NOTE | 2024-06-21 16:55 | PHA.MEDREC ---
Addendum entered by Williams Hays RPh 06/21/24 17:00: Med rec reviewed Original Note: Pharmacy Consult ? Medication Reconciliation Pharmacy has completed the medication reconciliation. Spoke with patient and she confirmed her medications. She states she is not taking any cream at this time. She confirmed the Gabapentin 300mg tab stating she takes 1 tablet three times a day and she claims she took her second dose today at 0900. She confirmed she took all her other medications yesterday.
[2024-06-21] MEDS: Acetaminophen 325 MG TABLET 650 MG PO (17:15)
[2024-06-21] MEDS: Lactated Ringers 1,000 ML 100 ML IVCONT (17:17)
[2024-06-21] MEDS: PHENobarbitaL sodium 130 MG/ML VIAL IM Q3Hx2 178 MG IM ×2 (17:52→21:38)
[2024-06-21] MEDS: Gabapentin 300 MG CAPSULE PO (21:38)
[2024-06-21] MEDS: Silver Sulfadiazine 1 % Cream 20 GM TUBE 1 APPL TOPICAL (21:38)
[2024-06-22 01:37] VITALS: BP 108/65; PULSE 93; RESP 20; TEMP 36.6; O2SAT 98
[2024-06-22] MEDS: Lactated Ringers 1,000 ML 100 ML IVCONT ×3 (02:03→22:55)
[2024-06-22 05:42] VITALS: BP 129/83; PULSE 93; RESP 20; TEMP 36.3; O2SAT 99
[2024-06-22 06:30] LABS: Anion Gap 16 (12-20); Blood Urea Nitrogen 10 mg/dL (9-16); Calcium 9.3 mg/dL (8.4-10.2); Carbon Dioxide 23 mmol/L (22-29); Chloride 105 mmol/L (96-108); Creatinine Clr Calc Pharmacy 103.1; Estimated Glomerular Filt Rate > 60; Glucose Random 121 mg/dL (60-115); Potassium 4.7 mmol/L (3.3-5.1); Sodium 139 mmol/L (135-145)
[2024-06-22] MEDS: Omeprazole 20 MG CAPSULE.DR PO ×2 (06:45→17:08)
[2024-06-22 08:00] VITALS: BP 107/71; PULSE 83; RESP 16; TEMP 37.4; O2SAT 100
[2024-06-22] MEDS: Gabapentin 300 MG CAPSULE PO ×3 (09:05→20:48)
[2024-06-22] MEDS: Cholecalciferol (Vitamin D3) 25 MCG TABLET 50 MCG PO (09:06)
[2024-06-22] MEDS: PHENobarbitaL 15 MG TABLET 45 MG PO ×2 (09:06→20:45)
[2024-06-22] MEDS: Loratadine 10 MG TABLET PO (09:06)
--- NOTE | 2024-06-22 09:35 | MHC.CM.PN ---
PT REPORTS SHE LIVES WITH HER AND IS INDEPENDENT WITH CARE SHE HAS NO DME AND NO SERVICES SHE DECLINES A HCP PCP: SALEEM CAPUTO DCP: HOME NO SERVICES VIA SELF TRANSPORT
[2024-06-22] MEDS: hydrOXYzine HCL 25 MG TABLET PO ×2 (10:14→17:08)
--- NOTE | 2024-06-22 12:49 | MHC.RECOVRN ---
AUDIT-C Brief Intervention Pt had positive screen for unhealthy alcohol use on admission, subsequently met with t/w to discuss alcohol use and recovery supports/options. This signwriter met with patient to discuss current alcohol use and concerns related to increased risk of alcohol related problems.? Pt reports approx 1 bottle wine (750 mL) every night since September 2023. Pt reports she had a miscarriage and marital issues which have increased alcohol use. Discussed how alcohol use has impacted health, including negative impact on overall physical wellbeing. Pt reports she utilizes wine to wind down after work. Withdrawal History: denies history withdrawal seizures Treatment History: ATS x 2 for benzodiazepine and alcohol use (had been prescribed benzos and wanted to stop taking them) Supports:?parents and , although parents more than Discussed risk reduction strategies including drinking below the recommended limit. Provided pt with written resources including information on inpatient and outpatient treatment, [facility], harm reduction, and recovery coaching. Pt interested in naltrexone. Pt plans to present as a walk in to the [facility] after discharge. Pt provided with t/w contact information if questions or concerns arise. Denies other questions or concerns at this time.?
--- NOTE | 2024-06-22 14:34 | P.PNIM_ITS ---
Subjective Subjective Date of Service: 06/22/24 Interval History: seen and evaluated this morning still anxious and restless, wanted to leave AMA scoring 9 on CIWA no other events Review of Systems finger tips pain Review of Systems: Yes all other systems are reviewed and are negative Physical Exam 2 Vital Signs: Vital Signs: Last Vital Signs Temp 99.3 F 06/22/24 08:00 Pulse 83 06/22/24 08:00 Resp 16 06/22/24 08:00 BP 107/71 06/22/24 08:00 Pulse Ox 100 06/22/24 08:00 O2 Del Method Room Air 06/22/24 08:00 BMI result Body Mass Index 23.7 Const: Other: Constitutional : Awake, interactive, anxious, not in distress Neck : Normal inspection, Supple Cardiovascular : RRR, no JVP, no lower extremity edema Respiratory : good bilateral air entry, no crackles, wheezes or rhonchi Gastrointestinal: soft, lax, Normal bowel sounds, Non tender Skin : Warm, Dry, finger tips traumatic injury under the nails, no signs of infection Neurological : Alert & oriented x3, No focal deficit , tremors Objective Data Active Medications Acetaminophen (Acetaminophen 325 Mg Tablet) 650 mg PO Q6H PRN PRN Reason: Pain, Mild (Pain Scale 1-3), fever or headache Last Admin: 06/21/24 17:15 Dose: 650 mg Documented By: REBECA Benzonatate (Benzonatate 100 Mg Capsule) 100 mg PO TID PRN PRN Reason: Cough Calcium Carbonate (Calcium Carbonate 750 Mg Tab.Chew) 750 mg PO Q4H PRN PRN Reason: Heartburn Gabapentin (Gabapentin 300 Mg Capsule) 300 mg PO TID [facility] Last Admin: 06/22/24 14:17 Dose: 300 mg Documented By: JOE Hydroxyzine HCl (Hydroxyzine Hcl 25 Mg Tablet) 25 mg PO Q6H PRN PRN Reason: anxiety/restlessness Last Admin: 06/22/24 10:14 Dose: 25 mg Documented By: JOE Lactated Ringer's (Lr) 1,000 mls @ 100 mls/hr IVCONT .Q10H [facility] Last Admin: 06/22/24 12:11 Dose: Not Given Documented By: JOE Non-Admin Reason: IV Running Loratadine (Loratadine 10 Mg Tablet) 10 mg PO DAILY [facility] Last Admin: 06/22/24 09:06 Dose: 10 mg Documented By: ASHISH Magnesium Hydroxide (Milk Of Magnesia 30 Ml Oral.Susp) 30 ml PO DAILY PRN PRN Reason: Constipation Melatonin (Melatonin 3 Mg Tablet) 6 mg PO BEDTIME PRN PRN Reason: Insomnia Omeprazole (Omeprazole 20 Mg Capsule.Dr) 20 mg PO DAILY@0630 [facility] Last Admin: 06/22/24 06:45 Dose: 20 mg Documented By: JANES Ondansetron HCl (Ondansetron Hcl 4 Mg/2 Ml Vial) 4 mg IVPUSH Q8H PRN PRN Reason: Nausea and Vomiting Pharmacy Consult (Consult Rx Etoh Phenob Im/Po) 1 each MISCELLANE ONCE PRN; Protocol PRN Reason: Consult order Phenobarbital (Phenobarbital 15 Mg Tablet) 45 mg PO BID [facility] Stop: 06/23/24 21:01 Last Admin: 06/22/24 09:06 Dose: 45 mg Documented By: ASHISH Phenobarbital (Phenobarbital 30 Mg Tablet) 30 mg PO BID [facility] Stop: 06/25/24 21:01 Phenobarbital (Phenobarbital 30 Mg Tablet) 30 mg PO DAILY [facility] Stop: 06/27/24 09:01 Phenobarbital Sodium (Phenobarbital Sodium 130 Mg/Ml Vial) 130 mg IM ONCE ONE Stop: 06/22/24 14:30 Silver Sulfadiazine (Silver Sulfadiazine 1 % Cream 20 Gm Tube) 1 appl TOPICAL BID [facility] Last Admin: 06/22/24 10:19 Dose: Not Given Documented By: JOE Non-Admin Reason: Med Not Available Sodium Chloride (0.9 % Sodium Chloride Flush 3 Ml Syringe) 3 ml IVFLUSH QSHIFT [facility] Last Admin: 06/22/24 09:33 Dose: Not Given Documented By: JOE Non-Admin Reason: IV Running Vitamin D (Cholecalciferol (Vitamin D3) 25 Mcg Tablet) 50 mcg PO DAILY [facility] Last Admin: 06/22/24 09:06 Dose: 50 mcg Documented By: ASHISH Labs 06/21/24 11:08 06/22/24 05:35 Labs: Laboratory Results - last 24 hr 06/22/24 05:35 Anion Gap 16 Estim Creat Clear Calc 103.1 Estimated GFR > 60 Random Glucose 121 H Calcium 9.3 Assessment and Plan (1) Alcohol withdrawal: Status: Acute (2) Epigastric abdominal pain: Status: Acute (3) Alcohol use disorder: Status: Acute Plan A 29 years old lady with PMH of alcohol abuse, ROMY, BPPV, GERD among others who is presenting with palpitations, tremors and not feeling well. Palpitations sinus tachycardia 2/2 dehydration, withdrawal , anxiety IV fluids anxiolytics; avoid benzos monitor Alcohol abuse with withdrawal keep on CIWA Phenobarb protocol addiction team following, outpatient resources chest tightness likely 2/2 GERD given negative Trop and EKG changes Omeprazole finger wounds traumatic, silver sulfasalazine cream Anxiety, mood disorder continue home medications Psychiatry consult for medical management. DVT PPx Lovenox The patient will likely need overnight hospital stay for treatment of withdrawal and evaluation of palpitations. Quality Stroke Does the patient have a stroke diagnosis?: No VTE Prior VTE?: No VTE Risk Level:: Medical - moderate - high VTE Device Contraindication: Treatment Not Indicated VTE Drug Contraindication: N/A - Med Ordered
[2024-06-22] MEDS: PHENobarbitaL sodium 130 MG/ML VIAL IM (15:17)
[2024-06-22 15:23] VITALS: BP 104/64; PULSE 91; RESP 16; TEMP 36.4; O2SAT 96
[2024-06-22 16:45] VITALS: BP 109/65; PULSE 90; RESP 18; TEMP 37; O2SAT 98
--- NOTE | 2024-06-22 16:58 | PM.EVENT ---
Event Note Date of Service: 06/22/24 Event Note: Called to see patient due to right arm pain after receiving shot for phenobarb Also complaining of lip swelling, slow speech and heavy breathing On examination patient awake alert in no distress No lip or tongue swelling noted Lungs good air entry, no wheeze Bilateral arm with no redness swelling As per patient she is anxious because recently had an allergic reaction to Keflex wanted to get checked to make sure not having another allergic reaction Reassured patient no treatment recommended. Time Spent With Patient Time: Total time managing care of this patient today ____ minutes.
[2024-06-22] MEDS: Calcium Carbonate 750 MG TAB.CHEW PO ×2 (17:07→20:46)
[2024-06-22] MEDS: Acetaminophen 325 MG TABLET 650 MG PO (17:09)
[2024-06-22 19:49] VITALS: BP 115/74; PULSE 87; RESP 20; TEMP 36.6; O2SAT 99
[2024-06-23] MEDS: hydrOXYzine HCL 25 MG TABLET PO (02:52)
[2024-06-23] MEDS: Acetaminophen 325 MG TABLET 650 MG PO (02:57)
[2024-06-23 03:38] VITALS: BP 105/62; PULSE 86; RESP 18; TEMP 36.4; O2SAT 99
[2024-06-23] MEDS: Omeprazole 20 MG CAPSULE.DR PO (05:39)
[2024-06-23 07:32] VITALS: BP 103/62; PULSE 95; RESP 16; TEMP 36.8; O2SAT 100
[2024-06-23] MEDS: Cholecalciferol (Vitamin D3) 25 MCG TABLET 50 MCG PO (09:09)
[2024-06-23] MEDS: PHENobarbitaL 15 MG TABLET 45 MG PO (09:11)
[2024-06-23] MEDS: Loratadine 10 MG TABLET PO (09:12)
[2024-06-23] MEDS: Gabapentin 300 MG CAPSULE PO (09:12)
--- NOTE | 2024-06-23 09:27 | MHC.RECOVRN ---
Pt has [facility] appt on 07/03/24 at 4:30PM. Pt aware and on dc paperwork.
[2024-06-23] MEDS: Silver Sulfadiazine 1 % Cream 20 GM TUBE 1 APPL TOPICAL (11:22)
--- NOTE | 2024-06-23 12:39 | P.PNADD_ITS ---
Subjective Subjective Date of Service: 06/23/24 Reason For Visit: Alcohol withdrawal,chest tightness,sob Interim History: Patient is a 29 year old female medically admitted with acute alcohol withdrawal. Known to t/w via outpatient office where she was seenX1 in April for AUD--at that time she was in contemplative statge regarding medications and overall BH interventions to address her alcohol use. Today patient is seen in room 359. She is awake, alert, engaged in interview. She was seen by global analytics head earlier in the day and at that time expressed interest in Naltrexone trial. When t/w inquired about this, patient stated she did not feel it was a good idea to start the medication for various reasons She cited concern that she would have an allergic reaction, similar to what she experienced with abx this week. She also feels that since her withdrawal sx have been addressed, she does not think drinking will be an issue. Limited insight related to her alcohol use-- I was only drinking so that I did not get sick . Gently challenged on this statement and reminded of alcohol history, including episodes of recurrence and triggers. Discussed medications as a tool to decreased chances she drinks again or in excess. Discussed additional recovery supports --she stated that her therapist is leaving [facility] and she is unsure if she will be assigned to another clinician She is not interested in other settings including [facility] or mutual aid groups, such as AA. She states previous experiences in those settings as not helpful . She denies withdrawal sx, does report anxiety --which is chronic Her affect, is somewhat blunted, but overall pleasant Review of Systems Constitutional: Reports as per HPI Mental Status Exam Mental Status Exam Patient Appearance: Appropriate Level of Consciousness: Awake, Appropriate and Alert Patient Behavior: Appropriate and Guarded Mood Description: Apprehensive Affect Description: Blunted Speech Pattern: Clear Thought Content: positive for Intact Judgement: Fair Diagnostics Vital Signs (24Hr): Vital Signs - 24 hr 06/22/24 15:23 06/22/24 16:45 06/22/24 19:49 Temperature 97.6 F 98.6 F 97.9 F Pulse Rate 91 90 87 Respiratory Rate 16 18 20 Blood Pressure 104/64 109/65 115/74 Pulse Oximetry 96 98 99 Oxygen Delivery Method Room Air Room Air Room Air 06/23/24 03:38 06/23/24 07:32 Temperature 97.5 F 98.2 F Pulse Rate 86 95 Respiratory Rate 18 16 Blood Pressure 105/62 103/62 Pulse Oximetry 99 100 Oxygen Delivery Method Room Air Room Air BMI result Body Mass Index 23.7 Labs 06/21/24 11:08 06/22/24 05:35 Labs: Laboratory Results - last 48 hr 06/21/24 06/22/24 13:28 05:35 D-Dimer High Sensitivty < 150 Sodium 139 Potassium 4.7 D Chloride 105 Carbon Dioxide 23 Anion Gap 16 BUN 10 Creatinine 0.74 Estim Creat Clear Calc 103.1 Estimated GFR > 60 Random Glucose 121 H Calcium 9.3 Imaging Radiology Impressions: ITS Impressions Chest X-Ray 06/21/24 10:38 IMPRESSION: Unremarkable examination. Electronically signed by: Rahat Lyons MD 06/21/2024 11:11 AM [facility] Medications Medications Current Medications Acetaminophen (Acetaminophen 325 Mg Tablet) 650 mg PO Q6H PRN PRN Reason: Pain, Mild (Pain Scale 1-3), fever or headache Last Admin: 06/23/24 02:57 Dose: 650 mg Benzonatate (Benzonatate 100 Mg Capsule) 100 mg PO TID PRN PRN Reason: Cough Calcium Carbonate (Calcium Carbonate 750 Mg Tab.Chew) 750 mg PO Q4H PRN PRN Reason: Heartburn Last Admin: 06/22/24 20:46 Dose: 750 mg Diphenhydramine HCl (Diphenhydramine Hcl 50 Mg/Ml Vial) 25 mg IVPUSH Q6H PRN PRN Reason: Allergic Reaction Gabapentin (Gabapentin 300 Mg Capsule) 300 mg PO TID KATHIE Last Admin: 06/23/24 09:12 Dose: 300 mg Hydroxyzine HCl (Hydroxyzine Hcl 25 Mg Tablet) 25 mg PO Q6H PRN PRN Reason: anxiety/restlessness Last Admin: 06/23/24 02:52 Dose: 25 mg Lactated Ringer's (Lr) 1,000 mls @ 100 mls/hr IVCONT .Q10H [facility] Last Infusion: 06/23/24 09:57 Dose: Infused Loratadine (Loratadine 10 Mg Tablet) 10 mg PO DAILY KATHIE Last Admin: 06/23/24 09:12 Dose: 10 mg Magnesium Hydroxide (Milk Of Magnesia 30 Ml Oral.Susp) 30 ml PO DAILY PRN PRN Reason: Constipation Melatonin (Melatonin 3 Mg Tablet) 6 mg PO BEDTIME PRN PRN Reason: Insomnia Omeprazole (Omeprazole 20 Mg Capsule.Dr) 20 mg PO BID@0630,1630 [facility] Last Admin: 06/23/24 05:39 Dose: 20 mg Ondansetron HCl (Ondansetron Hcl 4 Mg/2 Ml Vial) 4 mg IVPUSH Q8H PRN PRN Reason: Nausea and Vomiting Pharmacy Consult (Consult Rx Etoh Phenob Im/Po) 1 each MISCELLANE ONCE PRN; Protocol PRN Reason: Consult order Phenobarbital (Phenobarbital 15 Mg Tablet) 45 mg PO BID [facility] Stop: 06/23/24 21:01 Last Admin: 06/23/24 09:11 Dose: 45 mg Phenobarbital (Phenobarbital 30 Mg Tablet) 30 mg PO BID [facility] Stop: 06/25/24 21:01 Phenobarbital (Phenobarbital 30 Mg Tablet) 30 mg PO DAILY [facility] Stop: 06/27/24 09:01 Silver Sulfadiazine (Silver Sulfadiazine 1 % Cream 20 Gm Tube) 1 appl TOPICAL BID [facility] Last Admin: 06/23/24 11:22 Dose: 1 appl Sodium Chloride (0.9 % Sodium Chloride Flush 3 Ml Syringe) 3 ml IVFLUSH QSHIFT [facility] Last Admin: 06/23/24 09:04 Dose: Not Given Vitamin D (Cholecalciferol (Vitamin D3) 25 Mcg Tablet) 50 mcg PO DAILY [facility] Last Admin: 06/23/24 09:09 Dose: 50 mcg Allergies Allergies Allergy/AdvReac Type Severity Reaction Status Date / Time cephalexin Allergy Difficulty Verified 06/21/24 09:18 Breathing prednisone AdvReac Anxiety Verified 06/21/24 09:18 Assessment & Plan Assessment & Plan (1) Alcohol use disorder: Status: Acute Code(s): F10.90 - Alcohol use, unspecified, uncomplicated Assessment and Plan: * still contemplating starting naltrexone, but would like rx sent to pharmacy to have on hand should she decide to take it * will follow up with t/w outpatient at [facility], appt has been scheduled and provided to patient * risk reduction discussion related to alcohol use Total time managing care of this patient today __40__ minutes.
--- NOTE | 2024-06-23 14:52 | MHC.CM.PN ---
pt dcd home no servies
--- NOTE | 2024-06-23 15:07 | PM.DS ---
DS: Providers Provider Date of Service: 06/23/24 Date of admission: 06/21/24 16:39 Date of discharge: 06/23/24 Primary care physician: HAKEEM Zhu Consults: 06/21/24 11:58 Addiction Medicine Stat Consulting Provider: Addiction Covering Reason for consultation: etoh abuse Has provider been notified: No Consult to Care Team Stat Comment: Reason for consultation: anxiety 06/22/24 14:29 Consult to Psychiatry Routine Consulting Provider: [facility] Reason for consultation: ROMY, panic for eval and treatment. DS: Diagnosis Discharge Diagnosis (1) Alcohol use disorder: Status: Acute (2) Alcohol withdrawal: Status: Acute (3) ROMY (generalized anxiety disorder): Status: Acute (4) Eczema: Status: Acute DS: Summary Hospital Course Hospital Course: Admission note HPI A 29 years old lady with PMH of alcohol abuse, ROMY, BPPV, GERD among others who is presenting with palpitations, tremors and not feeling well. The patient reports 3 weeks of chest tightness and palpitations with no reported No chest pain, palpitations, SOB, nausea, vomiting, diarrhea or urinary symptoms. Showing signs of alcohol withdrawal. started on PHenobarb protocol. last drink last night. drinks 3-4 glasses of wine. She also reports pain in her fingers and allergic reaction. seems very stressed out and anxious. Admitted for further work up and treatment. Hospital course The patient was evaluated for the following: # Palpitations with chest tightness. sinus tachycardia secondary to dehydration, withdrawal , anxiety. responded well to IV fluids and anxiolytics. pain likely from GERD\gastiritis related to alcohol abuse with negative Trop and EKG changes. started on Famotidine. # Alcohol abuse with withdrawal. Monitored on CIWA and treated with Phenobarb protocol with fair response as she was followed by addiction team who recommended outpatient resources. # fingers skin irritation after doing her nails. silver sulfadiazine used with fair response. no evidence of infection. no need for antibiotics. # Anxiety, mood disorder. she was anxious most of her stay likely worse by withdrawal. improved during hospital stay with prn Atarax. Psychiatry consulted for management but she could not wait to see them and signed AMA to leave the hospital. Discharge plan Follow with PCP Avoid drinking Cream as needed for skin irritation Famotidine for Gastritis Time Attestation Discharge Coordination Time (in mins): 36 Quality: Safe Use of Opioids Does Pt have an Active Cancer Diagnosis on the Problem List?: No Quality: Stroke Does the patient have a stroke diagnosis?: No Physical Exam Vital Signs: Vital Signs: Last Vital Signs Temp 98.2 F 06/23/24 07:32 Pulse 95 06/23/24 07:32 Resp 16 06/23/24 07:32 BP 103/62 06/23/24 07:32 Pulse Ox 100 06/23/24 07:32 O2 Del Method Room Air 06/23/24 07:32 BMI result Body Mass Index 23.7 Const: Other: Constitutional : Awake, interactive, anxious, not in distress Neck : Normal inspection, Supple Cardiovascular : RRR, no JVP, no lower extremity edema Respiratory : good bilateral air entry, no crackles, wheezes or rhonchi Gastrointestinal: soft, lax, Normal bowel sounds, Non tender Skin : Warm, Dry, finger tips traumatic irritation under the nails, no signs of infection Neurological : Alert & oriented x3, No focal deficit , tremors DS: Data Imaging Chest x-ray: Radiologist's impression: ITS Impressions Chest X-Ray 06/21/24 10:38 IMPRESSION: Unremarkable examination. Electronically signed by: Rahat Lyons MD 06/21/2024 11:11 AM [facility] Discharge Plan Discharge Anticipated Discharge Date/Time: 06/23/24 14:59 Patient Disposition: Home, Self-Care Discharge Diagnosis: Alcohol withdrawal skin injury Referrals: Solange Fry CNP [Nurse Practitioner] - 07/03/24 4:30 pm ([facility] Solange Fry 07/03/24 at 4:30PM) Maci Cuellar FNP- [Primary Care Provider] - 1 Week Discharge Medications: New famotidine 20 mg tablet 20 mg PO DAILY Qty: 90 0RF silver sulfadiazine 1 % cream 1 appl topical BID Qty: 50 1RF Rx Instructions: apply a 1.5 mm thickness Continued omeprazole 20 mg Capsule,Delayed Release(Dr/Ec) 20 mg PO DAILY loratadine 10 mg Tablet 10 mg PO DAILY gabapentin 300 mg capsule 300 mg PO TID magnesium 250 mg tablet 250 mg PO BEDTIME cholecalciferol (vitamin D3) 50 mcg (2,000 unit) capsule 50 mcg PO DAILY Discharge Orders: Discharge Order (Routine); Ordered 06/23/24 Ordered By: Sohail Reyes Stand Alone Forms: Work/School Release Print Language: Turkish Care Plan Goals: Follow with PCP Avoid drinking Cream as needed Health Concerns: . Plan of Treatment: . Assessment: . Discharge Date/Time: 06/23/24 14:57
== END 2024-06-23 14:57 | disposition home or self-care (01) | DRG 422 ==
LOC: HO.ED 14:50 → HO.EDOVER 16:47 → HO.S3 19:15 → HO.EDOVER 19:36 → HO.S3 06-22 07:32
PROVIDERS: Physician Assistant Medical; Admitting Provider Student in an Organized Health Care Education/Training Program; Emergency Provider Emergency Medicine; PCP Nurse Practitioner Family; Visit Provider Student in an Organized Health Care Education/Training Program
DX: E86.0 Dehydration (principal); F10.139 Alcohol abuse with withdrawal, unspecified; R23.9 Unspecified skin changes; K21.9 Gastro-esophageal reflux disease without esophagitis; F41.1 Generalized anxiety disorder; R00.0 Tachycardia, unspecified; Z20.822 Contact with and (suspected) exposure to COVID-19; Z79.899 Other long term (current) drug therapy
CPT/HCPCS: 0241U; 36415; 71046; 80048; 80076; 80307; 81001; 83690; 83735; 84443; 84484; 84702; 85025; 85379; 93005; 99285; J1200; J2060; J2560; J2919; J7120

== ENCOUNTER → 2024-06-21 09:20 | Outpatient (BNV) | payer OTHER, SELFPAY | PROVIDERS: Admitting Provider Student in an Organized Health Care Education/Training Program; Emergency Provider Emergency Medicine; PCP Nurse Practitioner Family; Visit Provider Internal Medicine Cardiovascular Disease | DX: R94.31 Abnormal electrocardiogram [ECG] [EKG] (principal) | CPT/HCPCS: 93010 ==

== ENCOUNTER → 2024-06-21 16:39 | Outpatient (BNV) | payer OTHER, SELFPAY | PROVIDERS: Admitting Provider Student in an Organized Health Care Education/Training Program; Emergency Provider Emergency Medicine; PCP Nurse Practitioner Family; Visit Provider Nurse Practitioner Psychiatric/Mental Health | DX: F10.90 Alcohol use, unspecified, uncomplicated (principal) | CPT/HCPCS: 99232 ==

== ENCOUNTER → 2024-06-21 16:39 | Outpatient (BNV) | payer OTHER, SELFPAY | PROVIDERS: Admitting Provider Student in an Organized Health Care Education/Training Program; Emergency Provider Emergency Medicine; PCP Nurse Practitioner Family; Visit Provider Student in an Organized Health Care Education/Training Program | DX: R00.0 Tachycardia, unspecified (principal); R07.89 Other chest pain; F10.930 Alcohol use, unspecified with withdrawal, uncomplicated; F41.1 Generalized anxiety disorder | CPT/HCPCS: 99223 ==

== ENCOUNTER → 2024-06-28 14:43 | Outpatient (REF) | payer OTHER, SELFPAY ==
--- NOTE | 2024-06-28 14:46 | CA_ITS ---
Transthoracic Echocardiogram Amended Patient (Last, First, Middle): Lashay Martel, Gender: Female Date of : 1995 Age: 29 Procedure Date: 06/28/2024 Procedure Type: Transthoracic Echocardiogram Location: OP Height: 167.64 cm Weight: 61.24 kg BSA: 1.69 m2 Heart Rate: 80 bpm BP: 103 / 62 mmHg Stave Grader: SB Referring MD: Deidra Peguero MD Symptoms: R06.02 - Shortness of breath Study Quality: Adequate ECG Rhythm: Sinus Conclusions: - The left ventricular systolic function is normal. The calculated ejection fraction is 59% by biplane method. - No obvious valvular pathology seen on this study. Findings Left Ventricle Normal left ventricular cavity size. There is normal left ventricular wall thickness. The left ventricular systolic function is normal. The calculated ejection fraction is 59% by biplane method. There is no evidence of regional wall motion abnormalities. Diastolic function is normal for age. Right Ventricle Normal right ventricular cavity size and systolic function. Atria Both atria are normal in size. There is a mobile atrial septum noted. Interatrial shunt cannot be excluded. Aortic Valve There is a normal trileaflet aortic valve. There is no aortic valve stenosis. There is no aortic valve regurgitation. Mitral Valve The mitral valve appears normal. There is no mitral valve regurgitation. There is no mitral valve stenosis. Pulmonic Valve The pulmonic valve is likely normal. Tricuspid Valve Normal tricuspid valve structure. There is trace tricuspid valve regurgitation. There is no evidence of pulmonary hypertension. Great Vessels The asc aorta and aortic arch are normal in size. Venous The inferior vena cava is normal in size and collapses greater than 50% with inspiration. Pericardium/Pleural There is no evidence of pericardial effusion. Prior Study Comparison No prior study available for comparison. Recommendations, Care & Conclusions No obvious valvular pathology seen on this study. Measurements 2D Linear Measurements IVSd: 0.77 0.6-0.9/0.6-1.0 cm LVIDd: 4.95 3.9-5.3/4.2-5.9 cm LVIDd Index: 2.93 2.4-3.2/2.2-3.1 cm/m2 LVIDs: 3.39 2.0-3.6 cm LVPWd: 0.49 0.7-1.1 cm LA Diam: 3.40 2.7-3.8/3.0-4.0 cm LAIDs Index: 2.01 1.5-2.3 cm/m2 LV Mass: 123.04 67-162/88-224 g LV Mass Index: 72.81 43-95/49-115 g/m2 LVOT Diam: 1.80 3.0+(-)1.3 cm 2D Volumes LA Vol: 15.70 2D Systolic Function EF 4C: 50.30 >55% EF 2C: 64.80 >55% EF BiP: 58.70 >55% Mitral Valve MV Pk E: 0.72 MV PK A: 0.62 MV Decel Time: 152.00 E/A: 1.20 E'Lateral: 13.90 E'Medial: 7.72 E/E' Med: 9.30 E/E' Lat: 5.20 PHT: 45.00 MVA PHT: 4.89 Decel Polk: 4.70 Aortic Valve AoV Pk Linwood: 1.33 AoV Pk Grad: 7.00 SWAPNIL: 2.00 LVOT LVOT Pk Linwood: 1.02 LVOT Mn Linwood: 0.71 LVOT VTI: 0.20 LVOT Pk Grad: 4.00 LVOT Mn Grad: 2.00 LVOT Diam: 1.80 LVOT Area: 2.54 Diastolic Function MV Pk E: 0.72 MV Pk A: 0.62 E/A: 1.20 E'Medial: 7.72 E/E' Med: 9.30 E' Laterial: 13.90 E/E' Lat: 5.20 Right Ventricle TAPSE (mm): 16.10 TVS' Linwood: 11.40 Tricuspid Valve TR Pk Linwood: 1.82 TR Pk Grad: 13.00 RA Press: 3.00 RVSP: 16.00 Great Vessels Aorta Sinus of Valsalva: 2.30 2.0-3.5 cm Ao Asc: 2.00 2.1-3.4 cm Ao Arch: 2.30 Pulmonary Valve PV Pk Linwood: 0.91 Peak PV Grad: 3.00 Updated in Other Vendor System with Status of Final Joe Kwon MD electronically signed on 06/30/2024 10:31:38 AM with status of Final
== END ==
LOC: HO.CARD 14:43
PROVIDERS: PCP Nurse Practitioner Family; Visit Provider Internal Medicine
DX: R07.9 Chest pain, unspecified (principal); R06.02 Shortness of breath
CPT/HCPCS: 93306

== ENCOUNTER → 2024-06-28 14:46 | Outpatient (BNV) | payer OTHER, SELFPAY | PROVIDERS: PCP Nurse Practitioner Family; Visit Provider Internal Medicine | DX: R06.02 Shortness of breath (principal) | CPT/HCPCS: 93306 ==

== ENCOUNTER 2024-06-29 11:27 | Outpatient (AMB) | payer OTHER, SELFPAY ==
--- NOTE | 2024-06-29 11:37 | A.OFFPC_ITS ---
Vital Signs 06/29/24 11:39 Height 5 ft 6 in BMI Reason not done Patient refused/unable BP 104/70 Blood Pressure Location Rt brachial Position Sitting Pulse 84 Pulse Source Pulse Oximeter Pulse Oximetry (%) 99 Oxygen Delivery Method Room Air Intake Visit Reasons: [facility] [place] [facility] and medication reaction Allergies cephalexin Allergy (Severe, Verified 06/29/24 11:38) Difficulty Breathing prednisone Adverse Reaction (Verified 06/21/24 09:18) Anxiety Medication List - Last Reconciled 06/29/24 by Kiana Dias PA-C cholecalciferol (vitamin D3) 50 mcg PO DAILY gabapentin 300 mg PO TID loratadine 10 mg PO DAILY magnesium 250 mg PO BEDTIME omeprazole 20 mg PO DAILY Tobacco use date assessed: 03/27/24 Dental Screening Dental Screen Date: 09/07/23 HPI [facility] [place] [facility] and medication reaction HPI Details History of Present Illness The patient is a 29-year-old female presenting with concerns of allergic reactions, palpitations, and shortness of breath. Over the past few weeks, the patient has experienced allergic reactions, notably after getting her nails done, resulting in inflamed fingers. She was prescribed Cephalexin, which subsequently caused an adverse reaction with an increased heart rate and difficulty breathing. The patient reports a history of intermittent shortness of breath and chest tightness over the past few months, worsening around April last year. A recent hospital visit resulted in a couple of days of inpatient care due to concerns about alcohol withdrawal rather than the primary concern of allergic reactions. 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 She also wants autoimmune testing. Sometimes her joints feel stiff and achy. She follows up with a v groove cutter, with an echocardiogram done but not yet reviewed. Past healthcare interventions included labs that ruled out anemia, electrolyte imbalances, and thyroid dysfunction as causes for her symptoms. Liver enzymes and blood sugar levels were within normal ranges during recent hospitalizations. The patient expresses concerns about autoimmune disorders and unusual symptoms like facial numbness, for which she requests further testing. She had a previous episode of facial numbness a year ago, leading to evaluation for potential neurological causes. The patient has a history of anxiety and cites significant anxiety as a possible contributing factor to her palpitations. Previously diagnosed with anxiety, she has been on Gabapentin but is seeking [facility] review for her anxiety management. Health Maintenance Social History Review of Systems Physical Exam General: Well developed, well nourished, in no acute distress. Appears stated age. Head: Normocephalic, atraumatic. Eyes: Pupils are equal, round and reactive to light and accommodation. Conjunctivae are clear. Vision grossly normal. Ears: Tympanic membranes clear bilaterally, external auditory canal within normal limits Nose: Patent, without discharge. Mouth: There are no ulcers or lesions noted. No inflammation, no post nasal drip, no plaques nor exudates. Neck: Supple, no adenopathy or thyromegaly. Lungs: Clear to auscultation bilaterally. No rales, rhonchi or wheeze noted. Good air flow in all lyle. Heart: Regular rate and rhythm. No murmurs, click, rubs or gallops are noted. Abdomen: Bowel sounds present in all quadrants. The abdomen is soft, nontender, with no masses or organomegaly noted. No hernias are noted. Musculoskeletal: Joints are nontender, without swelling, redness, or effusions. Range of motion is observed to be normal. Pulses: Peripheral pulses are equal and palpable bilaterally. Extremities: No clubbing, cyanosis nor edema is noted. Neurologic: Gait and station normal. Cranial Nerves 2-12 intact. Motor strength grossly symmetrical and intact. No sensory loss. Balance normal. Skin: No rashes, ulcers, or lesions noted. Turgor is good. Skin color is good. Hair and nails are without abnormalities. Psych: Normal eye contact, affect and mood appropriate, and normal interactions. Patient is alert and appropriate to context. Results - Labs: Liver function tests and blood s ugar within normal limits during hospital admission. Plan - Referral to Allergy and Immunology for comprehensive allergy testing and management. - Follow-up with Cardiology for echocard iogram results and additional evaluation. - Assessment for anxiety: Introduction o f Buspirone for anxiety management, with a plan to taper off Gabapentin. - Initiation of pulmonary function testi to evaluate respiratory concerns. - Consider potential autoimmune screenin gs, including TED, rheumatoid factor, and a sed rate. - Monitor dietary factors and consider a n anti-inflammatory diet. Patient was informed and verbally consented to the use of an ambient scribe for clinic note documentation during this visit. Discussion Notes In our discussion, I addressed the patient's concerns about potential allergic reactions and their management. I emphasized the need for a specialist evaluation with Allergy and Immunology to explore the cause of these reactions. I also informed her about the relevance of understanding her cardiological evaluation for palpitations and advised against anxiety-inducing triggers, reminding her of the importance of hydration and dietary management. We discussed options for anxiety management, including trialing Buspirone, and her willingness to engage in lifestyle modifications such as exercise and an anti- inflammatory diet. Finally, I reassured her about the absence of urgent neurological concerns and the redundant possibility of additional radiation from imaging studies unless clinically necessary. Patient Instructions - Schedule an appointment with Allergy a nd Immunology for further assessment. - Follow up with the Tongue Binder to rev iew echocardiogram findings. - Begin Buspirone as prescribed, taper G abapentin with the provided schedule. - Stay well-hydrated and avoid prolonged fasting. - Consider trying an anti-inflammatory d iet and engage in regular physical activity. - Monitor for any new or worsening sympt oms and seek care promptly if concerns arise. - Limit exposure to potentially anxiety- inducing social media content. [facility] Medical History Acute bronchitis Open wound of right knee Cellulitis of buttock, left Cochlear implant in place Encounter to establish care Panic attacks Severe anxiety Anxiety Surgical History No pertinent past surgical history Family History Other Mental health disorder Social History Household Members: Family Housing: House Do you presently have visiting nurse or other home services: No Alcohol intake: current Alcohol intake frequency: 3 or more drinks per day Alcohol type: wine Patient Tobacco Use Status: Never used Tobacco e-Cigarette/Vaping Use: Never Used Second Hand Smoke Exposure: No service: No 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al status: employed 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 Cognitive needs: No Hearing needs: No Vision needs: No Questionnaire Thrive Questionnaire Date Thrive assessed: 06/06/24 I am a: Patient What is your living situation today?: I have a steady place to live Within the past 12 months, did the food you bought not last and you didn't have the money to get more?: Never true Within the past 12 months, did you worry whether your food would run out before you got money to buy more?: Never true Do you have trouble paying for medicines?: No Do you have trouble getting transportation to medical appointments?: No Do you have trouble paying your heating and electricity bill?: No Do you have trouble taking care of your child, family member or friend?: No Do you have trouble with day-to-day activities such as bathing, preparing meals, shopping, managing finances, etc.?: No Are you currently unemployed and looking for a job?: No Are you interested in more education?: No Please select the resources that you would like help with: None Currently or been in a relationship where the following occur: No concerns reported THRIVE Score: 0 ROMY-7 AMB Questionnaire ROMY-7 Date ROMY - 7 assessed: 03/27/24 Source: Developed by Drs. Spencer Gimenez, Rosanne Gonzalez, Boaz Ford and colleagues, with an educational jose r from [employer]. Physical exam (Primary Care) Vital Signs: Last Vital Signs Pulse 84 06/29/24 11:39 BP 104/70 06/29/24 11:39 Pulse Ox 99 06/29/24 11:39 Oxygen Delivery Method Room Air 06/29/24 11:39 Tobacco/Smoking Status: Tobacco use Status Tobacco use date assessed 03/27/24 06/29/24 11:42 Patient Tobacco Use Status Never used Tobacco 06/29/24 11:42 e-Cigarette/Vaping Use Never Used 06/29/24 11:42 Thrive Assessment: Date of Thrive Assessment Date Thrive assessed 06/06/24 06/29/24 11:42 Currently or been in a relationship where the following occur: No concerns reported Coding Level of Care Code Est Pt Level 5 (51332) Complex EM visit Add On G2211 Diagnoses Drug allergy, multiple Z88.9 Shortness of breath R06.02 Polyarthralgia M25.50 Assessment & Plan Assessment & Plan (1) Drug allergy, multiple: Code(s): Z88.9 - Allergy status to unspecified drugs, medicaments and biological substances Category: Medical (2) Shortness of breath: Code(s): R06.02 - Shortness of breath Category: Medical (3) Polyarthralgia: Code(s): M25.50 - Pain in unspecified joint Category: Medical Plan Of note, more than 1 hour was spent in [id number] time today discussing the patient's hospitalization with her and her mother, her list of her concerns, reviewing her labs and previous workups. Orders: Orders Hemoglobin A1c Today M25.50 - Pain in unspecified joint, R06.02 - Shortness of breath, R73.01 - Impaired fasting glucose, Z88.9 - Allergy status to unspecified drugs, medicaments and biological substances Lyme IgG/IgM w/reflex to WB Today M25.50 - Pain in unspecified joint, R06.02 - Shortness of breath, Z88.9 - Allergy status to unspecified drugs, medicaments and biological substances Erythrocyte Sedimentation Rate Today M25.50 - Pain in unspecified joint, R06.02 - Shortness of breath, Z88.9 - Allergy status to unspecified drugs, medicaments and biological substances Transglutaminase Ab IgG Today M25.50 - Pain in unspecified joint, R06.02 - Shortness of breath, Z88.9 - Allergy status to unspecified drugs, medicaments and biological substances PFT pulmonary function test Today R06.02 - Shortness of breath Comprehensive Met. Panel Today M25.50 - Pain in unspecified joint, R06.02 - Shortness of breath, Z88.9 - Allergy status to unspecified drugs, medicaments and biological substances TED Reflex Titer and Pattern Today M25.50 - Pain in unspecified joint, R06.02 - Shortness of breath, Z88.9 - Allergy status to unspecified drugs, medicaments and biological substances Rheumatoid Factor Today M25.50 - Pain in unspecified joint, R06.02 - Shortness of breath, Z88.9 - Allergy status to unspecified drugs, medicaments and biological substances Vitamin B12 and Folate Today M25.50 - Pain in unspecified joint, R06.02 - Shortness of breath, Z88.9 - Allergy status to unspecified drugs, medicaments and biological substances Endomysial IgA rflx Titer Today M25.50 - Pain in unspecified joint, R06.02 - Shortness of breath, Z88.9 - Allergy status to unspecified drugs, medicaments and biological substances Immunoglobulin A Today M25.50 - Pain in unspecified joint, R06.02 - Shortness of breath, Z88.9 - Allergy status to unspecified drugs, medicaments and bio logical substances Referrals Allergy & Immunology Referral Z88.9 - Allergy status to unspecified drugs, medicaments and biological substances Medications: New buspirone 5 mg PO BID 60 tabs 2RF gabapentin 100 mg PO TID 90 caps 1RF
[2024-06-29 11:39] VITALS: BP 104/70; PULSE 84; O2SAT 99
== END 2024-06-29 14:42 | disposition home or self-care (01) ==
PROVIDERS: PCP Nurse Practitioner Family; Visit Provider Physician Assistant
DX: R06.02 Shortness of breath (principal); M25.50 Pain in unspecified joint; Z88.9 Allergy status to unspecified drugs, medicaments and biological substances

== ENCOUNTER 2024-07-10 07:44 | Outpatient (REF) | payer OTHER, SELFPAY ==
[2024-07-10 08:51] LABS: Estimated Average Glucose 100 mg/dL; Hemoglobin A1C 105.4433 umol/L; Hemoglobin A1c % 5.1 % (<6.0); Total Hemoglobin (HGBA1C) 3224.2364 umol/L
[2024-07-10 09:11] LABS: Alanine Aminotransferase 26 U/L (0-31); Albumin Level 4.3 g/dL (3.5-5.0); Alkaline Phosphatase 67 U/L (39-117); Anion Gap 13 (12-20); Aspartate Amino Transferase 21 U/L (5-31); Bilirubin Total 0.3 mg/dL (0.0-1.0); Blood Urea Nitrogen 10 mg/dL (9-16); Calcium 9.2 mg/dL (8.4-10.2); Carbon Dioxide 25 mmol/L (22-29); Chloride 104 mmol/L (96-108); Estimated Glomerular Filt Rate > 60; Glucose Random 97 mg/dL (60-115); Potassium 3.3 mmol/L (3.3-5.1); Sodium 139 mmol/L (135-145); Total Protein 7.3 g/dL (6.5-8.0)
[2024-07-10 09:24] LABS: Erythrocyte Sedimentation Rate 12 MM/HR (0-20)
[2024-07-10 09:38] LABS: Rheumatoid Factor < 13.0 IU/mL (<15.0)
[2024-07-10 09:55] LABS: Folate 13.9 ng/mL (> or = 4.0); Vitamin B12 297 pg/mL (200-900)
[2024-07-11 10:17] LABS: Immunoglobulin A 297 mg/dL (47-310)
[2024-07-11 17:43] LABS: Lyme Abs Screen <0.90 index
[2024-07-13 12:13] LABS: Anti Nuclear Antibody Screen NEGATIVE (NEGATIVE)
[2024-07-13 22:14] LABS: Endomysial IgA Antibody Negative (Negative)
[2024-07-13 23:13] LABS: Transglutaminase Ab IgG <1.0 U/mL
== END 2024-07-10 07:45 | disposition home or self-care (01) ==
LOC: HO.LAB 07:44
PROVIDERS: PCP Physician Assistant; Visit Provider Physician Assistant
DX: Z88.9 Allergy status to unspecified drugs, medicaments and biological substances (principal); R06.02 Shortness of breath; M25.50 Pain in unspecified joint; R73.01 Impaired fasting glucose
CPT/HCPCS: 36415; 80053; 82607; 82746; 82784; 83036; 85652; 86038; 86231; 86364; 86431; 86617; 86618

== ENCOUNTER 2024-07-10 20:08 | Emergency (ER) | payer OTHER, SELFPAY ==
--- NOTE | 2024-07-10 20:11 | ECG_ITS ---
Test Reason : CP Blood Pressure : / mmHG Vent. Rate : 094 BPM Atrial Rate : 094 BPM P-R Int : 138 ms QRS Dur : 082 ms QT Int : 390 ms P-R-T Axes : 028 007 007 degrees QTc Int : 487 ms Normal sinus rhythm Prolonged QT Abnormal ECG When compared with ECG of 21-JUN-2024 09:29, Nonspecific T wave abnormality now evident in Inferior leads Referred By: Kings Zheng Electronically Signed By:FENG HICKEY MD
[2024-07-10 20:18] VITALS: BP 118/77; PULSE 90; RESP 20; TEMP 36.8; O2SAT 100; BMI 22.7
--- NOTE | 2024-07-10 20:23 | ED.GENADULT ---
HPI - General Adult General Chief complaint: Chest Pain Stated complaint: chest pain Related Data Home Medications ?Medication ?Instructions ?Recorded ?Confirmed loratadine 10 mg tablet 10 mg PO DAILY 08/03/20 07/20/24 cholecalciferol (vitamin D3) 50 50 mcg PO DAILY 04/22/22 07/20/24 mcg (2,000 unit) capsule magnesium 250 mg tablet 250 mg PO BEDTIME 04/22/22 07/20/24 sertraline 50 mg tablet 50 mg PO DAILY 08/23/24 Previous Rx's ?Medication ?Instructions ?Recorded clonazepam 0.5 mg tablet 0.5 mg PO BID PRN anxiety, panic 07/18/24 attacks #30 tabs hydroxyzine HCl 25 mg tablet 25 mg PO BEDTIME #90 tabs 07/18/24 gabapentin 300 mg capsule 300 mg PO Q8H #90 caps 07/28/24 cyanocobalamin (vitamin B-12) 500 500 mcg PO DAILY 30 days #30 tabs 08/02/24 mcg tablet fremanezumab-vfrm 225 mg/1.5 mL 225 mg (1.5 mL) subcut ONCE 30 08/18/24 subcutaneous auto-injector (Ajovy) days #1.5 mL esomeprazole magnesium 40 mg 40 mg PO DAILY #90 caps 08/23/24 capsule,delayed release (Nexium) famotidine 20 mg tablet (Pepcid) 20 mg PO BID #40 tabs 08/23/24 Allergies Allergy/AdvReac Type Severity Reaction Status Date / Time cephalexin Allergy Severe Difficulty Verified 08/23/24 16:05 Breathing Penicillins Allergy Unknown Verified 08/23/24 16:05 prednisone AdvReac Anxiety Verified 08/23/24 16:05 [facility] Past Medical History Medical History (Updated 08/25/24 @ 11:34 by Kings Zheng) Abnormal findings on esophagogastroduodenoscopy (EGD) Alcohol use disorder Epigastric abdominal pain ROMY (generalized anxiety disorder) Acute bronchitis Open wound of right knee Cellulitis of buttock, left Cochlear implant in place Encounter to establish care Panic attacks Severe anxiety Anxiety Surgical History (Updated 08/23/24 @ 16:15 by GEORGE Monson) History of esophagogastroduodenoscopy No pertinent past surgical history Family History Family History Other Mental health disorder Social History Social History Household Members: Family Housing: House Do you presently have visiting nurse or other home services: No Alcohol intake: former Comment: currently not using alcohol as of Jul 2024 Patient Tobacco Use Status: Never used Tobacco e-Cigarette/Vaping Use: Never Used Second Hand Smoke Exposure: No service: No 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al status: employed 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 [place] Cognitive needs: No Hearing needs: No Vision needs: No Physical Exam ED Vital Signs: BMI result Body Mass Index 22.7 Course Course Course Narrative: RME, this is a rapid medical exam performed by Jett Zheng please refer to primary provider for complete H&P- 29-year-old female presents for evaluation of chest pain that started a few weeks ago. She had an echocardiogram that showed a mobile atrial septum and trace tricuspid valve regurgitation. She reports her chest pain is worsening, she feels a squeezing in his chest and feels as though she can not breathe. Plan for labs including troponin. EKG was already performed. The patient has follow up with the Cardiology in 3 days Medical Decision Making Lab Data 07/10/24 21:19 07/10/24 21:19 Labs: Lab Results 07/10/24 Range/Units 21:19 WBC 6.0 (4.8-10.8) X10*3/uL RBC 4.05 L (4.20-5.50) X10*6/uL Hgb 12.9 (12.0-16.0) g/dl Hct 36.2 L (37.0-47.0) % MCV 89.4 (80.0-98.0) fL MCH 31.9 (27.0-33.0) pg MCHC 35.6 H (31.0-35.0) g/dl RDW 11.1 (11.0-16.0) % Plt Count 313 (160-400) X10*3/uL MPV 8.4 L (9.4-12.3) fL Immature Gran % (Auto) 0.2 (0.0-0.4) % Neut % (Auto) 57.3 (45-73) % Lymph % (Auto) 31.1 (20-40) % [place] % (Auto) 7.8 (2-11) % Eos % (Auto) 3.3 (0-4) % Baso % (Auto) 0.3 (0-2) % Lymph # (Auto) 1.9 (1.2-4.9) X10*3/uL [place] # (Auto) 0.5 (0.1-1.2) X10*3/uL Eos # (Auto) 0.2 (0.0-0.4) X10*3/uL Baso # (Auto) 0.0 (0.0-0.2) X10*3/uL Abs Immat Gran (auto) 0.01 (0.00-0.03) X10*3/uL Absolute Neuts (auto) 3.5 (2.0-8.3) x10*3/uL Absolute Nucleated RBC 0.000 (0.0-0.012) X10*3/uL Nucleated RBC % (auto) 0.0 (0.0-0.2) /100WBC PT 11.8 (10.9-12.4) SEC INR 1.0 (0.9-1.1) Sodium 139 (135-145) mmol/L Potassium 3.8 (3.3-5.1) mmol/L Chloride 109 H (96-108) mmol/L Carbon Dioxide 22 (22-29) mmol/L Anion Gap 12 (12-20) BUN 10 (9-16) mg/dL Creatinine 0.73 (0.5-1.4) mg/dL Estim Creat Clear Calc 100.5 Estimated GFR > 60 Random Glucose 97 (60-115) mg/dL Calcium 9.3 (8.4-10.2) mg/dL Total Bilirubin 0.2 (0.0-1.0) mg/dL AST 23 (5-31) U/L ALT 27 (0-31) U/L Alkaline Phosphatase 64 (39-117) U/L Troponin I High Sens < 2.7 (<3.5-17.0) ng/L Total Protein 7.6 (6.5-8.0) g/dL Albumin 4.5 (3.5-5.0) g/dL Lipase 22 (8-78) U/L Discharge Plan Discharge Clinical Impression: Chest pain Patient Disposition: Left W/O Completing Treatment Prescriptions: No Action gabapentin 300 mg capsule 300 mg PO Q8H Qty: 90 0RF cyanocobalamin (vitamin B-12) 500 mcg tablet 500 mcg PO DAILY 30 Days Qty: 30 6RF Ajovy Autoinjector 225 mg/1.5 mL auto-injector 225 mg subcut ONCE 30 Days Qty: 1.5 6RF Rx Instructions: administer 225mg sc q month loratadine 10 mg Tablet 10 mg PO DAILY magnesium 250 mg tablet 250 mg PO BEDTIME cholecalciferol (vitamin D3) 50 mcg (2,000 unit) capsule 50 mcg PO DAILY hydroxyzine HCl 25 mg tablet 25 mg PO BEDTIME Qty: 90 3RF clonazepam 0.5 mg tablet 0.5 mg PO BID PRN (Reason: anxiety, panic attacks) Qty: 30 0RF sertraline 50 mg tablet 50 mg PO DAILY esomeprazole magnesium [Nexium] 40 mg capsule,delayed release(DR/EC) 40 mg PO DAILY Qty: 90 5RF famotidine [Pepcid] 20 mg tablet 20 mg PO BID Qty: 40 0RF Discharge Date/Time: 07/11/24 01:31
[2024-07-10 21:23] LABS: MANUAL DIFF FLAG NO
[2024-07-10 21:26] LABS: Basophils Percent Auto 0.3 % (0-2); Eosinophils Absolute Auto 0.2 X10*3/uL (0.0-0.4); Eosinophils Percent Auto 3.3 % (0-4); Hematocrit 36.2 % (37.0-47.0); Hemoglobin 12.9 g/dl (12.0-16.0); Imm Gran Abs Auto 0.01 X10*3/uL (0.00-0.03); Imm Gran Pct Auto 0.2 % (0.0-0.4); Lymphocytes Absolute Auto 1.9 X10*3/uL (1.2-4.9); Lymphocytes Percent Auto 31.1 % (20-40); Mean Corpuscular HGB Conc 35.6 g/dl (31.0-35.0); Mean Corpuscular Hemoglobin 31.9 pg (27.0-33.0); Mean Corpuscular Volume 89.4 fL (80.0-98.0); Mean Platelet Volume 8.4 fL (9.4-12.3); Monocytes Absolute Auto 0.5 X10*3/uL (0.1-1.2); Monocytes Percent Auto 7.8 % (2-11); Neutrophils Absolute Auto 3.5 x10*3/uL (2.0-8.3); Neutrophils Percent Auto 57.3 % (45-73); Platelet Count 313 X10*3/uL (160-400); Red Blood Count 4.05 X10*6/uL (4.20-5.50); Red Cell Distribution Width 11.1 % (11.0-16.0)
[2024-07-10 21:31] LABS: Prothrombin Time 11.8 SEC (10.9-12.4)
[2024-07-10 21:40] LABS: Alanine Aminotransferase 27 U/L (0-31); Albumin Level 4.5 g/dL (3.5-5.0); Alkaline Phosphatase 64 U/L (39-117); Anion Gap 12 (12-20); Aspartate Amino Transferase 23 U/L (5-31); Bilirubin Total 0.2 mg/dL (0.0-1.0); Blood Urea Nitrogen 10 mg/dL (9-16); Calcium 9.3 mg/dL (8.4-10.2); Carbon Dioxide 22 mmol/L (22-29); Chloride 109 mmol/L (96-108); Creatinine Clr Calc Pharmacy 100.5; Estimated Glomerular Filt Rate > 60; Glucose Random 97 mg/dL (60-115); Lipase 22 U/L (8-78); Potassium 3.8 mmol/L (3.3-5.1); Sodium 139 mmol/L (135-145); Total Protein 7.6 g/dL (6.5-8.0)
[2024-07-10 21:48] LABS: Troponin-I High Sensitivity < 2.7 ng/L (<3.5-17.0)
== END 2024-07-11 01:31 | disposition left against medical advice (07) ==
LOC: HO.ED 07-11 01:09
PROVIDERS: Physician Assistant; Emergency Provider Emergency Medicine Emergency Medical Services
DX: R07.9 Chest pain, unspecified (principal)
CPT/HCPCS: 36415; 80053; 83690; 84484; 85025; 85610; 93005; 99283

== ENCOUNTER → 2024-07-10 20:11 | Outpatient (BNV) | payer OTHER, SELFPAY | PROVIDERS: Emergency Provider Emergency Medicine Emergency Medical Services; Visit Provider Internal Medicine Cardiovascular Disease | DX: R94.31 Abnormal electrocardiogram [ECG] [EKG] (principal) | CPT/HCPCS: 93010 ==

== ENCOUNTER 2024-07-11 09:30 | Outpatient (AMB) | payer OTHER, SELFPAY ==
--- NOTE | 2024-07-11 10:34 | MHC.PC.OV ---
Intake Visit Reasons: Results of echo Allergies cephalexin Allergy (Severe, Verified 07/10/24 20:23) Difficulty Breathing prednisone Adverse Reaction (Verified 07/10/24 20:23) Anxiety Tobacco use date assessed: 03/27/24 Dental Screening Dental Screen Date: 09/07/23 HPI HPI Comments History of Present Illness Details 29-year-old female with alcoholism, GERD, MDD, benzodiazepine dependence, borderline personality disorder, benign paroxysmal positional vertigo, cochlear implant on the right due to congenital sensorineural hearing loss, migraine aura without headache, panic attacks, severe somatoform disorder presenting for follow up chest pain Seen in May-Reports chest tightness, shortness of breath. Does endorse some heartburn. Started really bad about one week ago. She does have some epigastric burning, feels fullness after eating. Not on any OCPs. Deep dry cough with deep inspirations. No sick symptoms. Has been on omeprazole for years but symptoms are increased Echocardiogram was ordered. This is normal. She was seen recently in the ER for chest pain and palpitations-EKG abnormal -similar to February. She continues to have sharp chest pains that radiate to the back. She scheduled an appointment with [facility] cardiology on Jul 13. ROS see HPI PHYSICAL EXAM: Telehealth [facility] Medical History Acute bronchitis Open wound of right knee Cellulitis of buttock, left Cochlear implant in place Encounter to establish care Panic attacks Severe anxiety Anxiety Surgical History No pertinent past surgical history Family History Other Mental health disorder Social History Household Members: Family Housing: House Do you presently have visiting nurse or other home services: No Alcohol intake: current Alcohol intake frequency: 3 or more drinks per day Alcohol type: wine Patient Tobacco Use Status: Never used Tobacco e-Cigarette/Vaping Use: Never Used Second Hand Smoke Exposure: No service: No 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al status: employed 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 Cognitive needs: No Hearing needs: No Vision needs: No Questionnaire Thrive Questionnaire Date Thrive assessed: 06/06/24 ROMY-7 AMB Questionnaire ROMY-7 Date ROMY - 7 assessed: 03/27/24 Source: Developed by Drs. Spencer Gimenez, Rosanne Gonzalez, Boaz Ford and colleagues, with an educational jose r from [employer]. Physical exam (Primary Care) Tobacco/Smoking Status: Tobacco use Status Tobacco use date assessed 03/27/24 07/11/24 10:35 Patient Tobacco Use Status Never used Tobacco 07/11/24 10:35 e-Cigarette/Vaping Use Never Used 07/11/24 10:35 Thrive Assessment: Date of Thrive Assessment Date Thrive assessed 06/06/24 07/11/24 10:35 Telehealth Telehealth Telehealth Platform: [employer] Location of provider rendering services: practice address Location of patient: address on file Patient Identification confirmed using: Name, : Yes Telehealth method: voice only Patient verbally consented to treatment: Yes Patient verbally consented to billing insurance company: Yes Patient informed of any privacy concerns related to visit: Yes Minutes spent on Phone/Video with Pt.: 33 Coding Level of Care Code Tele Est Pt Level 4 (17946) Diagnoses Chest pain, unspecified type R07.9 Chest pain type: unspecified Assessment & Plan Assessment & Plan (1) Chest pain: Code(s): R07.9 - Chest pain, unspecified Category: Medical Qualifiers: Chest pain type: unspecified Qualified Code(s): R07.9 - Chest pain, unspecified Plan: Upcoming cardiology consult Reassurance regarding echo. Discussed EKG abnormalities though unchanged from February Stress test ordered Orders: Orders CA stress test 07/11/24 R07.9 - Chest pain, unspecified Referrals Cardiology Referral R00.2 - Palpitations, R07.9 - Chest pain, unspecified
== END 2024-07-11 11:10 | disposition home or self-care (01) ==
LOC: HO.HMCFM 09:30
PROVIDERS: Visit Provider Internal Medicine
DX: R07.9 Chest pain, unspecified (principal)

== ENCOUNTER 2024-07-12 17:49 | Emergency (ER) | payer OTHER, SELFPAY ==
[2024-07-12 17:54] VITALS: BP 110/85; PULSE 104; O2SAT 100
--- NOTE | 2024-07-12 17:55 | ED.CHESTPAIN ---
HPI - Chest Pain General Chief Complaint: General Medical Stated Complaint: chest pain Time Seen by Provider: 07/12/24 17:54 Source: patient, EMS and old records reviewed Mode of arrival: EMS Limitations: no limitations History of Present Illness ED Provider: LUI PEÑA narrative: 29 yo female with PMH of borderline personality disorder, GERD, migraines, mood disorder, severe anxiety here with c/o chest pain for months on and off has appointment with [facility] cardiology tomorrow - worried as recent ECHO showed some atrial septal movement and she has mild tricuscpid regurg. She admits to drinking last night now having worsening symptoms. EKG last time showed nonspecific ST T wave changes - same symptoms for months she does admit to new stress. No recent fevers. Rest of ECHO - aorta and no GWMA noted it was normal otherwise MD complaint: chest pain Onset (ago): month(s) Timing of current episode: constant Prior episodes: Yes Onset: during rest and during exertion Pain location: substernal, left chest and right chest Pain radiation: back Severity: similar to previous episodes Quality: aching and heaviness Relieving factors: nothing Exacerbating factors: stress and other Associated symptoms: dyspnea and sense of impending doom Treatment prior to arrival: none Related Data Home Medications ?Medication ?Instructions ?Recorded ?Confirmed loratadine 10 mg tablet 10 mg PO DAILY 08/03/20 06/29/24 omeprazole 20 mg capsule,delayed 20 mg PO DAILY 08/03/20 06/29/24 release cholecalciferol (vitamin D3) 50 50 mcg PO DAILY 04/22/22 06/29/24 mcg (2,000 unit) capsule magnesium 250 mg tablet 250 mg PO BEDTIME 04/22/22 06/29/24 Previous Rx's ?Medication ?Instructions ?Recorded buspirone 5 mg tablet 5 mg PO BID #60 tabs 06/29/24 gabapentin 100 mg capsule 100 mg PO TID #90 caps 06/29/24 Allergies Allergy/AdvReac Type Severity Reaction Status Date / Time cephalexin Allergy Severe Difficulty Verified 07/10/24 20:23 Breathing Penicillins Allergy Unknown Verified 07/12/24 18:10 prednisone AdvReac Anxiety Verified 07/10/24 20:23 Review of Systems Review of Systems: Constitutional : No Weight loss, No Fever, No Chills ENT/Mouth : No sore throat, No Rhinorrhea Eyes: No Eye Pain, No Swelling Cardiovascular : pos Chest Pain, pos SOB, no Dyspnea on Exertion Respiratory : No Cough, No Sputum Gastrointestinal : pos Nausea, No Vomiting, No Diarrhea, No abdominal Pain, No Hematochezia, No Melena Genitourinary : No Dysuria, No Urinary Frequency Musculoskeletal : No joint pain, No Myalgias, No Joint Swelling Skin : No Skin Lesions, No rash Neuro : No Weakness, No Numbness, No Dizziness, No Headache, pos paresthesias Psych : pos Anxiety/Panic, No Depression All other systems reviewed and are negative [facility] Past Medical History Attestation statement: The following information was validated with the patient. Source: old records reviewed Medical History Epigastric abdominal pain Alcohol use disorder ROMY (generalized anxiety disorder) Acute bronchitis Open wound of right knee Cellulitis of buttock, left Cochlear implant in place Encounter to establish care Panic attacks Severe anxiety Anxiety Surgical History No pertinent past surgical history Family History Family History Other Mental health disorder Social History Social History Household Members: Family Housing: House Do you presently have visiting nurse or other home services: No Alcohol intake: current Alcohol intake frequency: a few times a month Alcohol type: wine Patient Tobacco Use Status: Never used Tobacco Smoked in Last 30 Days: No e-Cigarette/Vaping Use: Never Used Second Hand Smoke Exposure: No Use of substances other than those prescribed or required for medical reasons: No Advance Directives: No Advance Directives Information Provided: No service: No 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al status: employed 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 Oriented X3. No acute distress. anxious Eyes: Pupils equal, round and reactive to light. ENT: Pharynx normal. Neck: Normal inspection. Neck supple. CVS: Normal heart rate and rhythm. Pulses normal. Respiratory: No respiratory distress. Breath sounds normal. Abdomen: Soft and nontender. Skin: Skin warm and dry. Normal skin color. Normal skin turgor. Extremities: No lower extremity edema. No calf ttp Neuro: Oriented X 3. No motor deficit. No sensory deficit. Medications Administered Discontinued Medications Generic Name Dose Route Start Last Admin Trade Name Frank PRN Reason Stop Dose Admin Lorazepam 1 mg 07/12/24 18:08 07/12/24 18:22 Lorazepam 2 Mg/Ml Vial IVPUSH 07/12/24 18:09 1 mg STAT STA Administration Medical Decision Making Medical Decision Making [facility] Narrative: 29 yo female with PMH of borderline personality disorder, GERD, migraines, mood disorder, severe anxiety here with c/o chest pain for months has appointment with cardiology tomorrow recent EKGs and ECHOs show no acute ischemia and given duration doubt VTE or dissection. She is not toxic she is anxious admittedly drinking last night made her symptoms worse she could have esophageal spasms if cardiac work up negative. Labs, EKG, IV ativan ordered Differential Diagnosis Differential Diagnoses: The differential diagnosis associated with the presentation includes atypical chest pain, doubt VTE given months of symptoms along with dissection, lyte abnormality Admission/Observation Consideration of admission/observation: Escalation of care including admission/observation considered work up negative stable for DC Lab Data [facility] Lab Attestation statement: I reviewed the patient's lab results. 07/12/24 18:39 07/12/24 18:39 Labs: Lab Results 07/12/24 Range/Units 18:39 WBC 6.3 (4.8-10.8) X10*3/uL RBC 4.06 L (4.20-5.50) X10*6/uL Hgb 12.7 (12.0-16.0) g/dl Hct 36.1 L (37.0-47.0) % MCV 88.9 (80.0-98.0) fL MCH 31.3 (27.0-33.0) pg MCHC 35.2 H (31.0-35.0) g/dl RDW 11.1 (11.0-16.0) % Plt Count 321 (160-400) X10*3/uL MPV 8.5 L (9.4-12.3) fL Immature Gran % (Auto) 0.2 (0.0-0.4) % Neut % (Auto) 67.6 (45-73) % Lymph % (Auto) 17.9 L (20-40) % [place] % (Auto) 10.4 (2-11) % Eos % (Auto) 3.4 (0-4) % Baso % (Auto) 0.5 (0-2) % Lymph # (Auto) 1.1 L (1.2-4.9) X10*3/uL [place] # (Auto) 0.7 (0.1-1.2) X10*3/uL Eos # (Auto) 0.2 (0.0-0.4) X10*3/uL Baso # (Auto) 0.0 (0.0-0.2) X10*3/uL Abs Immat Gran (auto) 0.01 (0.00-0.03) X10*3/uL Absolute Neuts (auto) 4.2 (2.0-8.3) x10*3/uL Absolute Nucleated RBC 0.000 (0.0-0.012) X10*3/uL Nucleated RBC % (auto) 0.0 (0.0-0.2) /100WBC Sodium 139 (135-145) mmol/L Potassium 3.4 (3.3-5.1) mmol/L Chloride 111 H (96-108) mmol/L Carbon Dioxide 19 L (22-29) mmol/L Anion Gap 12 (12-20) BUN 11 (9-16) mg/dL Creatinine 0.65 (0.5-1.4) mg/dL Estim Creat Clear Calc 117.4 Estimated GFR > 60 Random Glucose 92 (60-115) mg/dL Calcium 8.8 (8.4-10.2) mg/dL Magnesium 2.0 (1.6-2.6) mg/dL Total Bilirubin 0.3 (0.0-1.0) mg/dL Direct Bilirubin 0.1 (0.0-0.5) mg/dL AST 24 (5-31) U/L ALT 23 (0-31) U/L Alkaline Phosphatase 68 (39-117) U/L Troponin I High Sens < 2.7 (<3.5-17.0) ng/L B-Natriuretic Peptide 20 (<100) pg/mL Total Protein 7.4 (6.5-8.0) g/dL Albumin 4.4 (3.5-5.0) g/dL Lipase 19 (8-78) U/L Beta HCG, Quant < 2 mIU/mL Ethyl Alcohol < 10 mg/dL Influenza Type A (PCR) NEGATIVE (Negative) Influenza Type B (PCR) NEGATIVE (Negative) RSV RNA Qual (PCR) NEGATIVE (Negative) SARS-CoV-2 RNA (RT-PCR) NEGATIVE (Negative) Independent Interpretation I performed an independent interpretation of an: EKG Interpretation: Rate: 85 Rhythm: NSR Anson: normal Normal P waves. Normal LISANDRO. Normal QRS complex. ST T wave : normal no BERNARDO qTC:459 prior studies: no acute ischemia The study has been interpreted contemporaneously by me. . Independent Historian Clinical information obtained from an independent historian. History obtained from or confirmed by: EMS External Record Review External record reviewed: Outpatient record Discharge Plan Discharge Clinical Impression: Atypical chest pain Patient Disposition: Home, Self-Care Instructions: Chest Pain (ED) Additional Instructions: follow up with cardiology tomorrow consider starting buspirone return for any worsening symptoms or concerns labs, EKG and viral panel reassuring avoid alcohol Prescriptions: No Action omeprazole 20 mg Capsule,Delayed Release(Dr/Ec) 20 mg PO DAILY loratadine 10 mg Tablet 10 mg PO DAILY magnesium 250 mg tablet 250 mg PO BEDTIME cholecalciferol (vitamin D3) 50 mcg (2,000 unit) capsule 50 mcg PO DAILY buspirone 5 mg tablet 5 mg PO BID Qty: 60 2RF gabapentin 100 mg capsule 100 mg PO TID Qty: 90 1RF Print Language: Burmese
[2024-07-12 17:59] VITALS: BP 113/80; PULSE 87; RESP 18; TEMP 36.9; O2SAT 100
[2024-07-12 18:08] VITALS: BMI 23.5
--- NOTE | 2024-07-12 18:09 | ECG_ITS ---
Test Reason : CHEST PAIN Blood Pressure : / mmHG Vent. Rate : 085 BPM Atrial Rate : 085 BPM P-R Int : 144 ms QRS Dur : 090 ms QT Int : 386 ms P-R-T Axes : 016 008 -13 degrees QTc Int : 459 ms Normal sinus rhythm Normal ECG When compared with ECG of 10-JUL-2024 20:13, No significant change was found Referred By: Anna Turner Electronically Signed By:FENG HICKEY MD
[2024-07-12 18:12] VITALS: BP 113/80; RESP 18; TEMP 36.9
[2024-07-12] MEDS: LORazepam 2 MG/ML VIAL 1 MG IVPUSH (18:22)
[2024-07-12 18:44] LABS: MANUAL DIFF FLAG NO
[2024-07-12 18:46] LABS: Basophils Percent Auto 0.5 % (0-2); Eosinophils Absolute Auto 0.2 X10*3/uL (0.0-0.4); Eosinophils Percent Auto 3.4 % (0-4); Hematocrit 36.1 % (37.0-47.0); Hemoglobin 12.7 g/dl (12.0-16.0); Imm Gran Abs Auto 0.01 X10*3/uL (0.00-0.03); Imm Gran Pct Auto 0.2 % (0.0-0.4); Lymphocytes Absolute Auto 1.1 X10*3/uL (1.2-4.9); Lymphocytes Percent Auto 17.9 % (20-40); Mean Corpuscular HGB Conc 35.2 g/dl (31.0-35.0); Mean Corpuscular Hemoglobin 31.3 pg (27.0-33.0); Mean Corpuscular Volume 88.9 fL (80.0-98.0); Mean Platelet Volume 8.5 fL (9.4-12.3); Monocytes Absolute Auto 0.7 X10*3/uL (0.1-1.2); Monocytes Percent Auto 10.4 % (2-11); Neutrophils Absolute Auto 4.2 x10*3/uL (2.0-8.3); Neutrophils Percent Auto 67.6 % (45-73); Platelet Count 321 X10*3/uL (160-400); Red Blood Count 4.06 X10*6/uL (4.20-5.50); Red Cell Distribution Width 11.1 % (11.0-16.0); White Blood Count 6.3 X10*3/uL (4.8-10.8)
[2024-07-12 19:16] LABS: B Type Natriuretic Peptide 20 pg/mL (<100)
[2024-07-12 19:24] LABS: Alanine Aminotransferase 23 U/L (0-31); Albumin Level 4.4 g/dL (3.5-5.0); Alkaline Phosphatase 68 U/L (39-117); Anion Gap 12 (12-20); Aspartate Amino Transferase 24 U/L (5-31); Bilirubin Direct 0.1 mg/dL (0.0-0.5); Bilirubin Total 0.3 mg/dL (0.0-1.0); Blood Urea Nitrogen 11 mg/dL (9-16); Calcium 8.8 mg/dL (8.4-10.2); Carbon Dioxide 19 mmol/L (22-29); Chloride 111 mmol/L (96-108); Creatinine Clr Calc Pharmacy 117.4; Estimated Glomerular Filt Rate > 60; Ethanol < 10 mg/dL; Glucose Random 92 mg/dL (60-115); HCG Quantitative < 2 mIU/mL; Lipase 19 U/L (8-78); Potassium 3.4 mmol/L (3.3-5.1); Sodium 139 mmol/L (135-145); Total Protein 7.4 g/dL (6.5-8.0); Troponin-I High Sensitivity < 2.7 ng/L (<3.5-17.0)
[2024-07-12 19:34] LABS: Influenza A PCR NEGATIVE (Negative); Influenza B PCR NEGATIVE (Negative); Resp Syncy Virus RNA Qual PCR NEGATIVE (Negative); SARS COV2 PCR INHOUSE NEGATIVE (Negative)
[2024-07-12 19:47] VITALS: BP 114/77; PULSE 90; RESP 19; TEMP 37; O2SAT 98
== END 2024-07-12 19:48 | disposition home or self-care (01) ==
PROVIDERS: Emergency Provider Emergency Medicine; PCP Physician Assistant
DX: R07.89 Other chest pain (principal); Z03.818 Encounter for observation for suspected exposure to other biological agents ruled out; F41.9 Anxiety disorder, unspecified; R05.3 Chronic cough; Z79.899 Other long term (current) drug therapy
CPT/HCPCS: 0241U; 36415; 80048; 80076; 80307; 83690; 83735; 83880; 84484; 84702; 85025; 93005; 96374; 99284; J2060

== ENCOUNTER → 2024-07-12 18:09 | Outpatient (BNV) | payer OTHER, SELFPAY | PROVIDERS: Emergency Provider Emergency Medicine; PCP Physician Assistant; Visit Provider Internal Medicine Cardiovascular Disease | DX: R94.31 Abnormal electrocardiogram [ECG] [EKG] (principal) | CPT/HCPCS: 93010 ==

== ENCOUNTER 2024-07-15 10:44 | Outpatient (REF) | payer OTHER, SELFPAY ==
[2024-07-15 11:06] LABS: MANUAL DIFF FLAG NO
[2024-07-15 11:46] LABS: Basophils Percent Auto 0.5 % (0-2); Eosinophils Absolute Auto 0.2 X10*3/uL (0.0-0.4); Hematocrit 37.9 % (37.0-47.0); Hemoglobin 12.9 g/dl (12.0-16.0); Imm Gran Abs Auto 0.01 X10*3/uL (0.00-0.03); Imm Gran Pct Auto 0.2 % (0.0-0.4); Lymphocytes Absolute Auto 1.2 X10*3/uL (1.2-4.9); Lymphocytes Percent Auto 29.2 % (20-40); Mean Corpuscular Hemoglobin 31.2 pg (27.0-33.0); Mean Corpuscular Volume 91.5 fL (80.0-98.0); Mean Platelet Volume 9.1 fL (9.4-12.3); Monocytes Absolute Auto 0.4 X10*3/uL (0.1-1.2); Monocytes Percent Auto 8.7 % (2-11); Neutrophils Absolute Auto 2.4 x10*3/uL (2.0-8.3); Neutrophils Percent Auto 57.4 % (45-73); Platelet Count 357 X10*3/uL (160-400); Red Blood Count 4.14 X10*6/uL (4.20-5.50); Red Cell Distribution Width 11.2 % (11.0-16.0); White Blood Count 4.3 X10*3/uL (4.8-10.8)
[2024-07-15 11:47] LABS: Estimated Average Glucose 100 mg/dL; Hemoglobin A1C 109.4322 umol/L; Hemoglobin A1c % 5.1 % (<6.0); Total Hemoglobin (HGBA1C) 3405.0849 umol/L
[2024-07-15 12:10] LABS: Rheumatoid Factor < 13.0 IU/mL (<15.0)
[2024-07-15 12:11] LABS: Alanine Aminotransferase 22 U/L (0-31); Albumin Level 4.4 g/dL (3.5-5.0); Alkaline Phosphatase 63 U/L (39-117); Anion Gap 11 (12-20); Aspartate Amino Transferase 21 U/L (5-31); Bilirubin Total 0.4 mg/dL (0.0-1.0); Blood Urea Nitrogen 7 mg/dL (9-16); Calcium 9.1 mg/dL (8.4-10.2); Carbon Dioxide 23 mmol/L (22-29); Chloride 110 mmol/L (96-108); Estimated Glomerular Filt Rate > 60; Glucose Random 98 mg/dL (60-115); Iron 80 mcg/dL (30-160); Percent Iron Saturation 43 % (15-50); Potassium 3.7 mmol/L (3.3-5.1); Sodium 140 mmol/L (135-145); Total Iron Binding Capacity 186 mcg/dL (228-428); Total Protein 7.5 g/dL (6.5-8.0); Unsaturated Iron Binding 106 ug/dL
[2024-07-15 12:26] LABS: HIV AB/AG Nonreactive (Nonreactive); Syphilis Screen Nonreactive (Nonreactive)
[2024-07-15 12:30] LABS: Ferritin 32 ng/mL (10-122); TSH reflex Free T4 1.33 uIU/mL (0.32-4.0)
[2024-07-15 12:40] LABS: Vitamin B12 313 pg/mL (200-900)
[2024-07-15 12:54] LABS: Erythrocyte Sedimentation Rate 14 MM/HR (0-20)
[2024-07-17 11:48] LABS: CRP High Sensitivity 0.5 mg/L
[2024-07-17 18:09] LABS: Homocysteine 7.9 umol/L (<10.4)
[2024-07-18 07:52] LABS: Anti Nuclear Antibody Screen NEGATIVE (NEGATIVE)
[2024-07-18 17:54] LABS: Zinc 64 mcg/dL (60-130)
[2024-07-19 09:58] LABS: Methylmalonic Acid 129 nmol/L (55-335)
[2024-07-19 13:18] LABS: Vitamin D 25-OH, D2 <4 ng/mL; Vitamin D 25-OH, D3 47 ng/mL; Vitamin D 25-OH, Total 47 ng/mL (30-100)
[2024-07-20 13:44] LABS: Vitamin B6 7.5 ng/mL (2.1-21.7)
[2024-07-20 15:24] LABS: Nicotinamide 28 ng/mL (see note); Vit B3 - Nicotinic Acid <20 ng/mL (see note); Vitamin B5 (Pantothenic Acid) <=40 ng/mL (<275)
[2024-07-20 17:33] LABS: Vitamin B1 10 nmol/L (8-30)
== END 2024-07-15 10:45 | disposition home or self-care (01) ==
LOC: HO.LAB 10:44
PROVIDERS: PCP Physician Assistant; Visit Provider Nurse Practitioner Family
DX: R00.2 Palpitations (principal); R73.01 Impaired fasting glucose; M25.50 Pain in unspecified joint; F41.9 Anxiety disorder, unspecified; R20.2 Paresthesia of skin
CPT/HCPCS: 36415; 80053; 82306; 82607; 82728; 82746; 83036; 83090; 83540; 83921; 84207; 84425; 84443; 84591; 84630; 85025; 85652; 86038; 86141; 86431; 86780; 87389

== ENCOUNTER 2024-07-17 14:17 | Outpatient (AMB) | payer OTHER, SELFPAY ==
--- NOTE | 2024-07-17 15:18 | MHC.OFFWIV ---
Intake Vital Signs 07/17/24 15:30 BP 104/70 Blood Pressure Location Lt brachial Position Sitting Pulse 93 Pulse Source Pulse Oximeter Temp 98.2 F Temp Source Oral Pulse Oximetry (%) 98 Oxygen Delivery Method Room Air Intake Visit Reasons: EP-sob, thight chest, cough [phone] Intake Note: Patient here for cough, SOB, chest tightness, vertigo, bilat hand numbness that has been present for about 3 weeks Patient Tobacco Use Status: Current everyday Tobacco user Allergies cephalexin Allergy (Severe, Verified 07/17/24 15:19) Difficulty Breathing Penicillins Allergy (Verified 07/17/24 15:19) Unknown prednisone Adverse Reaction (Verified 07/17/24 15:19) Anxiety Do you need a note to return to daycare/school/sports/work: Yes PFSH Medical History Epigastric abdominal pain Alcohol use disorder ROMY (generalized anxiety disorder) Acute bronchitis Open wound of right knee Cellulitis of buttock, left Cochlear implant in place Encounter to establish care Panic attacks Severe anxiety Anxiety Surgical History No pertinent past surgical history Family History Other Mental health disorder Social History Household Members: Family Housing: House Do you presently have visiting nurse or other home services: No Alcohol intake: current Alcohol intake frequency: a few times a month Alcohol type: wine Patient Tobacco Use Status: Current everyday Tobacco user e-Cigarette/Vaping Use: Never Used Second Hand Smoke Exposure: No service: No 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al status: employed 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 She reports that these symptoms have persisted for a few weeks. The cough is described as dry and worsens whenever she attempts to take a deep breath. The patient has sought care at the hospital on multiple occasions, including transport by ambulance, where her heart was evaluated with an EKG, but no chest x-ray was performed. Additionally, she experiences vertigo, which has incapacitated her from working for the past two weeks. Her only medication to date has been ibuprofen, and no treatment was provided during previous hospital visits. 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 [employer] Review of Systems - Respiratory: Reports a dry cough - Cardiovascular: Reports chest tightness and pain - Neurological: Reports vertigo Physical Exam General: Appearance normal, both eyes and all related structures Nutritional Appearance: Well nourished Orientation/consciousness: Patient oriented x3 Limitations: Patient reports vertigo and inability to work for two weeks Head: Normal to inspection Neck: Normal visual inspection Chest: Normal palpation of entire chest wall Respiratory: Patient reports chest tightness and deep cough with normal respiratory effort Neurology: Patient oriented x3 Results - Labs and Tests: EKG was performed at the hospital - No chest x-ray performed Plan - Conduct a chest x-ray to evaluate for any underlying chest or respiratory issues. - Monitor and assess vertigo symptoms for any further intervention. Patient was informed and verbally consented to the use of an ambient scribe for clinic note documentation during this visit. Discussion Notes I discussed with the patient the need for a chest x-ray to further evaluate her symptoms of chest tightness and persistent cough. We reviewed her previous hospital visits where only an EKG and blood test were performed. I emphasized the importance of ruling out any significant cardiac or pulmonary conditions. The patient consented to proceed with the imaging, and I assured her that once the x-ray results are available, we will determine the next steps. Patient Instructions - Await chest x-ray and discuss results during follow-up. - Monitor symptoms and report any changes, especially worsening chest pain or breathing difficulties. - Refrain from strenuous activities until vertigo symptoms are managed. Orders: Orders XR chest 2V Today R05.9 - Cough, unspecified Coding Level of Care Code Est Pt Level 4 (84825) Diagnoses Upper respiratory tract infection J06.9
[2024-07-17 15:30] VITALS: BP 104/70; PULSE 93; TEMP 36.8; O2SAT 98
== END 2024-07-17 15:47 | disposition home or self-care (01) ==
PROVIDERS: PCP Physician Assistant; Visit Provider Internal Medicine
DX: J06.9 Acute upper respiratory infection, unspecified (principal)

== ENCOUNTER 2024-07-17 15:38 | Outpatient (REF) | payer OTHER, SELFPAY ==
--- NOTE | ~2024-07-17 | XR_ITS ---
EXAMINATION: XR CHEST 2 VIEWS HISTORY: R05.9 - Cough, unspecified COMPARISON: Comparison is made with the prior examination dated 06/21/2024. FINDINGS: PA and lateral views of the chest are submitted. The lungs are expanded and clear. There is no pleural effusion, pneumothorax, or pulmonary vascular congestion. The heart is normal in size. The bones are intact. XR/XR chest 2V IMPRESSION: No acute cardiopulmonary abnormality. Electronically signed by: Spencer Pennington MD 07/20/2024 01:19 PM LEWIS
== END 2024-07-17 15:39 | disposition home or self-care (01) ==
LOC: HO.HMGCX 15:38
PROVIDERS: PCP Nurse Practitioner Family; Visit Provider Internal Medicine
DX: R05.9 Cough, unspecified (principal)
CPT/HCPCS: 71046

== ENCOUNTER → 2024-07-17 15:41 | Outpatient (BNV) | payer OTHER, SELFPAY | PROVIDERS: PCP Nurse Practitioner Family; Visit Provider Radiology Diagnostic Radiology | DX: R05.9 Cough, unspecified (principal) | CPT/HCPCS: 71046 ==

== ENCOUNTER 2024-07-18 09:11 | Outpatient (AMB) | payer OTHER, SELFPAY ==
--- NOTE | 2024-07-18 09:12 | MHC.PC.OV ---
Vital Signs 07/18/24 09:17 Height 5 ft 6 in Weight 137 lb BMI 22.1 BP 104/58 L Blood Pressure Location Rt brachial Position Sitting Respiration 16 Pulse 81 Pulse Source Pulse Oximeter Temp 98.3 F Temp Source Oral Pulse Oximetry (%) 99 Oxygen Delivery Method Room Air Intake Visit Reasons: Cough/Virtigo/dizzyness Intake Note: patient here c/o cough, vertigo, dizzyness, shortness of breath for a few weeks. Manager Channel Required: No Is last menstrual period known: Yes Last menstrual period: 06/17/24 Post menopausal: No Patient : No Allergies cephalexin Allergy (Severe, Verified 07/18/24 14:19) Difficulty Breathing Penicillins Allergy (Verified 07/18/24 14:19) Unknown prednisone Adverse Reaction (Verified 07/18/24 14:19) Anxiety Tobacco use date assessed: 07/18/24 Dental Screening Dental Screen Date: 07/18/24 Did you have a dental visit in the last 12 months?: No Did you have a dental problem in the last 6 months where you did not have access to dental care?: No Was dental information given to patient?: Patient has dentist HPI HPI Comments History of Present Illness Details 29-year-old female with alcoholism, GERD, MDD, benzodiazepine dependence, borderline personality disorder, benign paroxysmal positional vertigo, cochlear implant on the right due to congenital sensorineural hearing loss, migraine aura without headache, panic attacks, severe somatoform disorder presenting for follow up Is getting numbness on the face, hands bilaterally. Migratory. None on the scalp. Continues to have shortness of breath with minimal activity. Has been having a lot of vertigo. Laying still, turning in bed. Saw [facility] Cardiology on Jul 13-they ordered stress test and echo with bubble study and heart monitor. Upcoming neurology appointment at [facility] with Jocelyn Mcduffie. Seen in May-Reports chest tightness, shortness of breath. Does endorse some heartburn. Started really bad about one week ago. She does have some epigastric burning, feels fullness after eating. Not on any OCPs. Deep dry cough with deep inspirations. No sick symptoms. Has been on omeprazole for years but symptoms are increased Echocardiogram was ordered. This is normal. She was seen recently in the ER for chest pain and palpitations-EKG abnormal -similar to February. She continues to have sharp chest pains that radiate to the back. She scheduled an appointment with [facility] cardiology on Jul 13. BH: She is not currently following with psychiatry. She uses hydroxyzine at bedtime. Does not want SSRI. ROS see HPI PHYSICAL EXAM: Telehealth [facility] Medical History Epigastric abdominal pain Alcohol use disorder ROMY (generalized anxiety disorder) Acute bronchitis Open wound of right knee Cellulitis of buttock, left Cochlear implant in place Encounter to establish care Panic attacks Severe anxiety Anxiety Surgical History No pertinent past surgical history Family History Other Mental health disorder Social History Household Members: Family Housing: House Do you presently have visiting nurse or other home services: No Alcohol intake: former Comment: currently not using alcohol as of Jul 2024 Patient Tobacco Use Status: Never used Tobacco e-Cigarette/Vaping Use: Never Used Second Hand Smoke Exposure: No service: No 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al status: employed 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 1. Little interest or pleasure in doing things: not at all 2. Feeling down, depressed, or hopeless: several days 3. Trouble falling or staying asleep, or sleeping too much: several days 4. Feeling tired or having little energy: more than half the days 5. Poor appetite or overeating: not at all 6. Feeling bad about yourself - or that you are a failure or have let yourself or your family down: not at all 7. Trouble concentrating on things, such as reading the newspaper or watching television: not at all 8. Moving or speaking so slowly that other people could have noticed. Or the opposite - being so fidgety or restless that you have been moving around a lot more than usual: several days 9. Thoughts that you would be better off or of hurting yourself in some way: not at all Total score: 5 Source: Developed by Drs. Spencer Gimenez, Boaz Paiz and colleagues, with an educational jose r from [employer]. Thrive Questionnaire Date Thrive assessed: 06/06/24 I am a: Patient What is your living situation today?: I have a steady place to live Within the past 12 months, did the food you bought not last and you didn't have the money to get more?: Never true Within the past 12 months, did you worry whether your food would run out before you got money to buy more?: Never true Do you have trouble paying for medicines?: No Do you have trouble getting transportation to medical appointments?: No Do you have trouble paying your heating and electricity bill?: No Do you have trouble taking care of your child, family member or friend?: No Do you have trouble with day-to-day activities such as bathing, preparing meals, shopping, managing finances, etc.?: No Are you currently unemployed and looking for a job?: No Are you interested in more education?: No Please select the resources that you would like help with: None Currently or been in a relationship where the following occur: No concerns reported THRIVE Score: 0 AUDIT C Alcohol Use Questionnaire (AUDIT-C) 1. How often do you have a drink containing alcohol?: Never Total Score: 0 ROMY-7 AMB Questionnaire ROMY-7 Date ROMY - 7 assessed: 03/27/24 Feeling nervous, anxious, or on edge: 1 = Several days Not being able to stop or control worryin = More than half the days Worrying too much about different things: 1 = Several days Trouble relaxin = Several days Being so restless that it is hard to sit still: 1 = Several days Becoming easily annoyed or irritable: 1 = Several days Feeling afraid as if something awful might happen: 1 = Several days Total ROMY-7 score (0-4 normal; 5-9 mild; 10-14 moderate; 15-21 severe): 8 Source: Developed by Rosanne Irby Kurt Kroenke and colleagues, with an educational jose r from [employer]. Physical exam (Primary Care) Vital Signs: Last Vital Signs Temp 98.3 F 07/18/24 09:17 Pulse 81 07/18/24 09:17 Resp 16 07/18/24 09:17 BP 104/58 L 07/18/24 09:17 Pulse Ox 99 07/18/24 09:17 Oxygen Delivery Method Room Air 07/18/24 09:17 BMI result Body Mass Index 22.1 Tobacco/Smoking Status: Tobacco use Status Tobacco use date assessed 07/18/24 07/18/24 09:20 Patient Tobacco Use Status Never used Tobacco 07/18/24 09:38 e-Cigarette/Vaping Use Never Used 07/18/24 09:38 PHQ-9: PHQ-9 Score PHQ-9: Total score 5 07/18/24 09:20 Thrive Assessment: Date of Thrive Assessment Date Thrive assessed 06/06/24 07/18/24 09:20 Currently or been in a relationship where the following occur: No concerns reported Coding Level of Care Code Est Pt Level 4 (94647) Complex EM visit Add On G2211 Diagnoses Benign paroxysmal positional vertigo of right ear H81.11 Laterality: right Chest pain, unspecified type R07.9 Chest pain type: unspecified Assessment & Plan Assessment & Plan (1) BPPV (benign paroxysmal positional vertigo): Code(s): H81.10 - Benign paroxysmal vertigo, unspecified ear Category: Medical Qualifiers: Laterality: right Qualified Code(s): H81.11 - Benign paroxysmal vertigo, right ear Plan: Vestibular rehab (2) Chest pain: Code(s): R07.9 - Chest pain, unspecified Category: Medical Qualifiers: Chest pain type: unspecified Qualified Code(s): R07.9 - Chest pain, unspecified Plan: abnormal EKG. Echo reassuring. Repeating with bubble through cardiology. Tachycardia. cardiology recommend BB. She has upcoming heart monitor and stress test Orders: Orders PT Evaluation and Treatment 07/18/24 H81.11 - Benign paroxysmal vertigo, right ear Tryptase 07/18/24 Z88.9 - Allergy status to unspecified drugs, medicaments and biological substances Metanephrines, Random Urine 07/18/24 R00.2 - Palpitations Medications: New hydroxyzine HCl 25 mg PO BEDTIME 90 tabs 3RF clonazepam 0.5 mg PO BID PRN 30 tabs 0RF anxiety, panic attacks
[2024-07-18 09:17] VITALS: BP 104/58; PULSE 81; RESP 16; TEMP 36.8; O2SAT 99; BMI 22.1
== END 2024-07-18 09:56 | disposition home or self-care (01) ==
PROVIDERS: PCP Nurse Practitioner Family; Visit Provider Internal Medicine
DX: H81.11 Benign paroxysmal vertigo, right ear (principal); R07.9 Chest pain, unspecified

== ENCOUNTER → 2024-07-18 09:11 | Outpatient (BNVA) | payer OTHER, SELFPAY | PROVIDERS: PCP Nurse Practitioner Family; Visit Provider Internal Medicine ==

== ENCOUNTER 2024-07-18 10:27 | Outpatient (REF) | payer OTHER, SELFPAY ==
[2024-07-23 06:53] LABS: Vitamin C 0.4 mg/dL (0.3-2.7)
[2024-07-26 15:08] LABS: Creatinine Random Urine 97 mg/dL (20-275); Metanephrine, Free Rand Ur 64 mcg/g cr (32-134); Normetanephrine, Free Rand Ur 102 mcg/g cr (67-390); Total Metanephrine, Free RU 166 mcg/g cr (94-445)
== END 2024-07-18 10:28 | disposition home or self-care (01) ==
LOC: HO.WFDLDS 10:27
PROVIDERS: Referring Provider Nurse Practitioner Family; Visit Provider Internal Medicine
DX: R00.2 Palpitations (principal); R73.01 Impaired fasting glucose; M25.50 Pain in unspecified joint; R45.89 Other symptoms and signs involving emotional state; G43.909 Migraine, unspecified, not intractable, without status migrainosus; R42 Dizziness and giddiness; R20.2 Paresthesia of skin; R20.0 Anesthesia of skin; F41.9 Anxiety disorder, unspecified; F45.9 Somatoform disorder, unspecified; R06.02 Shortness of breath; R06.00 Dyspnea, unspecified; R06.83 Snoring; Z88.9 Allergy status to unspecified drugs, medicaments and biological substances
CPT/HCPCS: 36415; 82180; 83520; 83835

== ENCOUNTER 2024-07-18 11:05 | Outpatient (AMB) | payer OTHER, SELFPAY ==
[2024-07-18 11:13] VITALS: BP 112/62; PULSE 87; O2SAT 99; BMI 22.3
--- NOTE | 2024-07-18 11:13 | MHC.OFFVIS ---
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 Battery Required: No Accompanied by: Self / Same As Patient Allergies cephalexin Allergy (Severe, Verified 07/18/24 11:21) Difficulty Breathing Penicillins Allergy (Verified 07/18/24 11:21) Unknown prednisone Adverse Reaction (Verified 07/18/24 11:21) Anxiety Medication List - Last Reconciled 07/18/24 by WARREN Ol[place]stead azithromycin take 500 mg today (day 1), then 250 mg for 4 days (days 2-5) PO cholecalciferol (vitamin D3) 50 mcg PO DAILY clonazepam 0.5 mg PO BID PRN gabapentin 100 mg PO TID hydroxyzine HCl 25 mg PO BEDTIME loratadine 10 mg PO DAILY magnesium 250 mg PO BEDTIME omeprazole 20 mg PO DAILY HPI Comments Details: 28-yr-old female presents for f/u visit for worsening neurological symptoms. She was last seen here almost a year ago. Pt reports she is overall doing worse than last year when she saw us. Patient had called us the other day to report her worsening symptoms. As patient was already on today's schedule, patient was advised to undergo additional laboratory workup including nutritional status lab workup- full results of which are still pending. Patient has had several interval ER evaluations. 06/21/2024: Presented for possible adverse effect from antibiotic to treat finger nail infection following artificial now placement. Was admitted for treatment of potential alcohol withdrawal. Patient states that she does not believe that she was exhibiting alcohol withdrawal symptoms. 07/10/2024: ER eval for shortness of breath and chest tightness. Echocardiogram showeda mobile atrial septum noted. Interatrial shunt cannot be excluded. She had [facility] cardiology f/u- per pt, she is scheduled for f/u echocardiogram and stress test this Wednesday. Upon review [facility] Cardiology note, plan was to start patient on metoprolol and limited bubble echocardiogram. She had an ER eval on 07/11/24, as she had an episode of bilateral hands becoming stuck in extension x's > 1 hr, she fell to the ground. Since, she has not been able to do anything with her hands, they are shaky. She states she is having more difficulty functioning overall. She is having difficulty standing for more than 5 minutes. She has not been able to work in the past week. She is having more SOB chest tightness/pressure. She is still having her typical symptoms facial numbness/paresthesias and head zaps. more SOB chest tightness/pressure. She is having bouts of head pressure which can be associated with photophobia/phonophobia, and facial numbness. She has been feeling whooshing in her head, warm sensation, ringing in her ears. She can still have bouts of spinning vertigo triggered by head movement. Patient also reports increased snoring, gasping and panicked arousals. Previous HST in 2021 was inconclusive. After last year's visit, she did try sumatriptan once, but she did not retry it and she was worried she would have side effects. She states that she had been drinking 2-3 glasses of wine a night to help manage her anxiety, but she has not had any alcohol intake since [place]. She is f/b [facility]- has a new therapist as her old therapist left the practice, and has a psychiatry consult in Aug. She does not feel that therapy will be helpful, as her anxiety is about her worsening health and physical symptoms. She again states that she is concerned that she could have a brain tumor or stroke. Today, she also states she is concerned she could have an aneurysm or seizure. Patient has been slowly weaning off of the gabapentin, states currently on 900 mg a day, and is concerned that when she stops that she will have a seizure. She was started on gabapentin for anxiety and not a seizure disorder. When asked why she thinks she would have seizures, she says many of her symptoms feels like when she thinks the seizure would feel it coming on. And when she was previously on high doses of alprazolam, she was told that she could not abruptly stop the alprazolam due to risk for seizure activity. She was given a p.r.n. order for clonazepam on 07/16/2023, patient has not started this as she thought it might trigger seizure. [facility] Medical History Epigastric abdominal pain Alcohol use disorder ROMY (generalized anxiety disorder) Acute bronchitis Open wound of right knee Cellulitis of buttock, left Cochlear implant in place Encounter to establish care Panic attacks Severe anxiety Anxiety Surgical History No pertinent past surgical history Family History Other Mental health disorder Social History Household Members: Family Housing: House Do you presently have visiting nurse or other home services: No Alcohol intake: former Comment: currently not using alcohol as of Jul 2024 Patient Tobacco Use Status: Never used Tobacco e-Cigarette/Vaping Use: Never Used Second Hand Smoke Exposure: No service: No 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al status: employed 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 Cognitive needs: No Hearing needs: No Vision needs: No Physical Exam Vital Signs: Last Vital Signs Pulse 87 07/18/24 11:13 BP 112/62 07/18/24 11:13 Pulse Ox 99 07/18/24 11:13 Oxygen Delivery Method Room Air 07/18/24 11:13 BMI result Body Mass Index 22.3 Const General: cooperative and no acute distress Orientation/consciousness: patient oriented x3 Resp Effort & Inspection: normal respiratory effort and able to speak in complete sentences Neuro Other: Cochlear implant in place. Facial symmetry Patient easily moves from sitting to standing. Mild bilateral upper extremity postural tremor General: patient oriented x3 Cognition (Neuro): normal cognition Psych Other: Patient appears more anxious than her usual baseline Appearance: grossly normal Attitude: cooperative Assessment & Plan Assessment & Plan (1) Anxiety about health: Code(s): R45.89 - Other symptoms and signs involving emotional state Category: Medical (2) Migraine: Code(s): G43.909 - Migraine, unspecified, not intractable, without status migrainosus Category: Medical Qualifiers: Migraine type: unspecified Status migrainosus presence: without status migrainosus Intractability: not intractable Qualified Code(s): G43.909 - Migraine, unspecified, not intractable, without status migrainosus (3) Vertigo: Code(s): R42 - Dizziness and giddiness Category: Medical (4) Facial paresthesia: Code(s): R20.2 - Paresthesia of skin Category: Medical (5) Numbness and tingling: Code(s): R20.0 - Anesthesia of skin; R20.2 - Paresthesia of skin Category: Medical (6) Anxiety: Code(s): F41.9 - Anxiety disorder, unspecified Category: Medical (7) Somatoform disorder: Code(s): F45.9 - Somatoform disorder, unspecified Category: Medical (8) Shortness of breath: Code(s): R06.02 - Shortness of breath Category: Medical (9) Snoring: Code(s): R06.83 - Snoring Category: Medical (10) Paroxysmal nocturnal dyspnea: Code(s): R06.00 - Dyspnea, unspecified Category: Medical Plan Reviewed available lab work results, at this point are notable for low normal vitamin B12 level. Will await completion of lab work, and consider vitamin B12 supplementation. Bubble echocardiogram as scheduled. Patient may benefit from starting metoprolol 12.5 mg per Cardiology. Will request in-lab sleep study to assess for increased snoring, gasping arousals, and nocturnal panic attacks. Reviewed that many of her symptoms are likely secondary to migraine or possibly a mast cell D/O. Upon completion of above: Consider trying a migraine prevention agent, such as low-dose metoprolol as recommended by Cardiology. Consider resuming sumatriptan. Previous treatment trials: Amitriptyline 10-20 mg not tolerated. Other considerations, would include trial of MAST cell d/o tx's, such as H2 shagufta, leukotriene receptor antagonists, or antihistamine. Discussed with patient that working with a psychotherapist to help her manage her anxiety can still be beneficial even when she is having physical symptoms. Discussed generally that anxiety may exacerbate certain physical symptoms, such as her tremor or her ability to cope with her current symptoms. Discussed the patient may benefit from seeing a comprehensive functional neurological disorder clinic, which patient agrees to. Thus, referral order placed for patient to be evaluated at [facility] functional [facility]. Will follow-up upon review of above and patient to follow-up in clinic in 2 months or sooner prn. Orders: Orders RT PSG in-lab sleep study Today R06.00 - Dyspnea, unspecified, R06.02 - Shortness of breath, R06.83 - Snoring Referrals Neurology Referral F41.9 - Anxiety disorder, unspecified, F45.9 - Somatoform disorder, unspecified, R45.89 - Other symptoms and signs involving emotional state Coding Level of Care Code Est Pt Level 4 (35161) Complex EM visit Add On G2211 Diagnoses Anxiety about health R45.89 Migraine without status migrainosus, not intractable, unspecified migraine type G43.909 Migraine type: unspecified Status migrainosus presence: without status migrainosus Intractability: not intractable Vertigo R42 Facial paresthesia R20.2 Numbness and tingling R20.0; R20.2 Anxiety F41.9 Somatoform disorder F45.9 Shortness of breath R06.02 Snoring R06.83 Paroxysmal nocturnal dyspnea R06.00
== END 2024-07-18 12:15 | disposition home or self-care (01) ==
PROVIDERS: PCP Physician Assistant; Visit Provider Nurse Practitioner Family
DX: R45.89 Other symptoms and signs involving emotional state (principal); G43.909 Migraine, unspecified, not intractable, without status migrainosus; R42 Dizziness and giddiness; R20.2 Paresthesia of skin; R20.0 Anesthesia of skin; F41.9 Anxiety disorder, unspecified; F45.9 Somatoform disorder, unspecified; R06.02 Shortness of breath; R06.83 Snoring; R06.00 Dyspnea, unspecified
CPT/HCPCS: 99214

== ENCOUNTER 2024-07-18 13:47 | Emergency (ER) | payer OTHER, SELFPAY ==
--- NOTE | ~2024-07-18 | XR_ITS ---
EXAMINATION: XR CHEST CLINICAL INFORMATION: chest pain COMPARISON: Chest x-ray 07/17/2024 TECHNIQUE: Frontal view of the chest was obtained. FINDINGS: No significant abnormality is noted involving the heart, lungs, mediastinum, bony thorax or soft tissues. XR/XR chest 1V IMPRESSION: Unremarkable chest examination. Electronically signed by: Bhavesh Marin MD 07/18/2024 04:25 PM [facility]
[2024-07-18 14:07] VITALS: BP 119/67; PULSE 100; O2SAT 100
--- NOTE | 2024-07-18 14:11 | ECG_ITS ---
Test Reason : CP Blood Pressure : */* mmHG Vent. Rate : 80 BPM Atrial Rate : 80 BPM P-R Int : 142 ms QRS Dur : 80 ms QT Int : 386 ms P-R-T Axes : 21 12 0 degrees QTcB Int : 445 ms Normal sinus rhythm Normal ECG When compared with ECG of 12-Jul-2024 18:16, No significant change was found Referred By: Amos Rhodes Electronically Signed By: CINDY MONTIEL
--- NOTE | 2024-07-18 14:14 | ED.CHESTPAIN ---
HPI - Chest Pain General Chief Complaint: Chest Pain Stated Complaint: CP,SOB PER EMS Time Seen by Provider: 07/18/24 13:59 Source: patient Limitations: no limitations History of Present Illness HPI narrative: This is a 29 years old patient presented to the emergency department with a chief complaint of chest pain shortness of breath. She saw the PCP today she was given azithromycin for possible lung infection. Patient has history of alcohol abuse she has been seen in this emergency department for chest pain MD complaint: chest pain Onset (ago): hour(s) (5) Timing of current episode: constant Prior episodes: Yes Onset: during rest Pain location: substernal Pain radiation: none Quality: dull Relieving factors: nothing Exacerbating factors: nothing Associated symptoms: nausea Risk Factors Coronary artery disease risk factors: none Related Data Home Medications ?Medication ?Instructions ?Recorded ?Confirmed loratadine 10 mg tablet 10 mg PO DAILY 08/03/20 07/18/24 omeprazole 20 mg capsule,delayed 20 mg PO DAILY 08/03/20 07/18/24 release cholecalciferol (vitamin D3) 50 50 mcg PO DAILY 04/22/22 07/18/24 mcg (2,000 unit) capsule magnesium 250 mg tablet 250 mg PO BEDTIME 04/22/22 07/18/24 Previous Rx's ?Medication ?Instructions ?Recorded gabapentin 100 mg capsule 100 mg PO TID #90 caps 06/29/24 azithromycin 250 mg tablet See Rx Instructions PO .COMPLEX #6 07/17/24 tabs clonazepam 0.5 mg tablet 0.5 mg PO BID PRN anxiety, panic 07/18/24 attacks #30 tabs hydroxyzine HCl 25 mg tablet 25 mg PO BEDTIME #90 tabs 07/18/24 Allergies Allergy/AdvReac Type Severity Reaction Status Date / Time cephalexin Allergy Severe Difficulty Verified 07/18/24 14:19 Breathing Penicillins Allergy Unknown Verified 07/18/24 14:19 prednisone AdvReac Anxiety Verified 07/18/24 14:19 Review of Systems Constitutional: Constitutional: Reports no additional constitutional complaints Cardiovascular: Cardiovascular: Reports no additional cardiovascular complaints PMFSH Past Medical History Attestation statement: The following information was validated with the patient. Medical History Epigastric abdominal pain Alcohol use disorder ROMY (generalized anxiety disorder) Acute bronchitis Open wound of right knee Cellulitis of buttock, left Cochlear implant in place Encounter to establish care Panic attacks Severe anxiety Anxiety Surgical History No pertinent past surgical history Family History Family History Other Mental health disorder Social History Social History Household Members: Family Housing: House Do you presently have visiting nurse or other home services: No Alcohol intake: former Comment: currently not using alcohol as of Jul 2024 Patient Tobacco Use Status: Never used Tobacco Smoked in Last 30 Days: No e-Cigarette/Vaping Use: Never Used Second Hand Smoke Exposure: No Use of substances other than those prescribed or required for medical reasons: No Advance Directives: No Advance Directives Information Provided: Yes Do you have a plan to hurt others: No Plan service: No 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al status: employed 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 Cognitive needs: No Hearing needs: No Vision needs: No Physical Exam Vital Signs: Vital Signs: Last Vital Signs Temp 99.1 F 07/18/24 14:18 Pulse 88 07/18/24 16:36 Resp 12 07/18/24 16:36 BP 103/67 07/18/24 16:36 Pulse Ox 99 07/18/24 16:36 O2 Del Method Room Air 07/18/24 16:36 BMI result Body Mass Index 21.8 No acute distress looks well comfortable in the stretcher Const: General: cooperative Nutritional Appearance: average body habitus Orientation/consciousness: patient oriented x3 HEENT: Head: Yes normal to inspection Face and sinus: Yes normal facial exam Mouth: Normal oral and palatal mucosa present Throat: Yes posterior oropharynx normal Neck: Neck: Yes normal visual inspection and Yes full ROM Chest: Chest palpation & inspection: normal inspection of the chest Resp: Effort & Inspection: normal respiratory effort Auscultation: clear to auscultation bilaterally Cardio: Jugular venous distension: no JVD Rate: regular rate Rhythm: regular rhythm GI: Inspection: Yes normal to inspection Palpation (GI): Soft to palpation, not firm and nontender Auscultation: normal bowel sounds Skin: General skin exam: no rashes or lesions noted and elasticity normal Rashes: no rashes Neuro: General: patient oriented x3 Course Reevaluation(s) Reevaluation #1: troponin negative ,EKG normal waiting for CXR Time: 15:10 Reevaluation #2: waiting for CXR result Dr Molina will check CXR if negative will d/c home Medications Administered Discontinued Medications Generic Name Dose Route Start Last Admin Trade Name Melvinq PRN Reason Stop Dose Admin Lorazepam 1 mg 07/18/24 14:12 07/18/24 14:30 Lorazepam 1 Mg Tablet PO 07/18/24 14:13 1 mg ONCE ONE Administration Medical Decision Making Medical Decision Making [facility] Narrative: Patient presented to the emergency department complaining of chest pain shortness of breath she has been to this ED before with a similar symptoms we will do EKG chest x-ray troponin I received sign-out from my colleague Dr. Rhodes. Chest x-ray does not show any acute abnormality Differential Diagnosis Differential Diagnoses: The differential diagnosis associated with the presentation includes Anxiety/ACS/pneumothorax Admission/Observation Consideration of admission/observation: Escalation of care including admission/observation considered Lab Data [facility] Lab Attestation statement: I reviewed the patient's lab results. 07/18/24 14:33 07/18/24 14:33 Labs: Lab Results 07/18/24 Range/Units 14:33 WBC 4.7 L (4.8-10.8) X10*3/uL RBC 4.01 L (4.20-5.50) X10*6/uL Hgb 12.6 (12.0-16.0) g/dl Hct 36.0 L (37.0-47.0) % MCV 89.8 (80.0-98.0) fL MCH 31.4 (27.0-33.0) pg MCHC 35.0 (31.0-35.0) g/dl RDW 11.0 (11.0-16.0) % Plt Count 327 (160-400) X10*3/uL MPV 8.6 L (9.4-12.3) fL Immature Gran % (Auto) 0.2 (0.0-0.4) % Neut % (Auto) 59.3 (45-73) % Lymph % (Auto) 27.1 (20-40) % [place] % (Auto) 8.3 (2-11) % Eos % (Auto) 4.7 H (0-4) % Baso % (Auto) 0.4 (0-2) % Lymph # (Auto) 1.3 (1.2-4.9) X10*3/uL [place] # (Auto) 0.4 (0.1-1.2) X10*3/uL Eos # (Auto) 0.2 (0.0-0.4) X10*3/uL Baso # (Auto) 0.0 (0.0-0.2) X10*3/uL Abs Immat Gran (auto) 0.01 (0.00-0.03) X10*3/uL Absolute Neuts (auto) 2.8 (2.0-8.3) x10*3/uL Absolute Nucleated RBC 0.000 (0.0-0.012) X10*3/uL Nucleated RBC % (auto) 0.0 (0.0-0.2) /100WBC Sodium 142 (135-145) mmol/L Potassium 3.3 (3.3-5.1) mmol/L Chloride 111 H (96-108) mmol/L Carbon Dioxide 24 (22-29) mmol/L Anion Gap 10 L (12-20) BUN 6 L (9-16) mg/dL Creatinine 0.74 (0.5-1.4) mg/dL Estim Creat Clear Calc 103.1 Estimated GFR > 60 Random Glucose 90 (60-115) mg/dL Calcium 9.3 (8.4-10.2) mg/dL Total Bilirubin 0.2 (0.0-1.0) mg/dL AST 23 (5-31) U/L ALT 25 (0-31) U/L Alkaline Phosphatase 58 (39-117) U/L Troponin I High Sens < 2.7 (<3.5-17.0) ng/L Total Protein 7.2 (6.5-8.0) g/dL Albumin 4.3 (3.5-5.0) g/dL Beta HCG, Quant < 2 mIU/mL Independent Interpretation I performed an independent interpretation of an: EKG and Plain X-Ray Interpretation: EKG reviewed interpreted by me as normal sinus rhythm rate [address]-T changes normal EKG Radiology Impression Discussion of test interpretation with radiology: I have reviewed the radiologist's reading. Radiologist Impression: No significant abnormality is noted involving the heart, lungs, mediastinum, bony thorax or soft tissues. XR/XR chest 1V IMPRESSION: Unremarkable chest examination. Discharge Plan Discharge Clinical Impression: Anxiety Chest pain Qualifiers: Chest pain type: unspecified Qualified Code(s): R07.9 - Chest pain, unspecified Patient Disposition: Home, Self-Care Instructions: Anxiety (ED) Additional Instructions: Follow-up with your primary care physician return to the emergency room if you worse any concern Prescriptions: No Action omeprazole 20 mg Capsule,Delayed Release(Dr/Ec) 20 mg PO DAILY loratadine 10 mg Tablet 10 mg PO DAILY magnesium 250 mg tablet 250 mg PO BEDTIME cholecalciferol (vitamin D3) 50 mcg (2,000 unit) capsule 50 mcg PO DAILY gabapentin 100 mg capsule 100 mg PO TID Qty: 90 1RF azithromycin 250 mg tablet See Rx Instructions PO .COMPLEX Qty: 6 0RF Rx Instructions: take 500 mg today (day 1), then 250 mg for 4 days (days 2-5) PO hydroxyzine HCl 25 mg tablet 25 mg PO BEDTIME Qty: 90 3RF clonazepam 0.5 mg tablet 0.5 mg PO BID PRN (Reason: anxiety, panic attacks) Qty: 30 0RF Print Language: Kuwaiti
[2024-07-18 14:18] VITALS: BP 112/73; PULSE 56; RESP 16; TEMP 37.3; O2SAT 100; BMI 21.8
[2024-07-18] MEDS: LORazepam 1 MG TABLET PO (14:30)
[2024-07-18 14:37] LABS: MANUAL DIFF FLAG NO
[2024-07-18 14:39] LABS: Basophils Percent Auto 0.4 % (0-2); Eosinophils Absolute Auto 0.2 X10*3/uL (0.0-0.4); Eosinophils Percent Auto 4.7 % (0-4); Hemoglobin 12.6 g/dl (12.0-16.0); Imm Gran Abs Auto 0.01 X10*3/uL (0.00-0.03); Imm Gran Pct Auto 0.2 % (0.0-0.4); Lymphocytes Absolute Auto 1.3 X10*3/uL (1.2-4.9); Lymphocytes Percent Auto 27.1 % (20-40); Mean Corpuscular Hemoglobin 31.4 pg (27.0-33.0); Mean Corpuscular Volume 89.8 fL (80.0-98.0); Mean Platelet Volume 8.6 fL (9.4-12.3); Monocytes Absolute Auto 0.4 X10*3/uL (0.1-1.2); Monocytes Percent Auto 8.3 % (2-11); Neutrophils Absolute Auto 2.8 x10*3/uL (2.0-8.3); Neutrophils Percent Auto 59.3 % (45-73); Platelet Count 327 X10*3/uL (160-400); Red Blood Count 4.01 X10*6/uL (4.20-5.50); White Blood Count 4.7 X10*3/uL (4.8-10.8)
[2024-07-18 14:41] VITALS: BP 105/65; PULSE 84; RESP 18; O2SAT 100
[2024-07-18 15:00] LABS: Alanine Aminotransferase 25 U/L (0-31); Albumin Level 4.3 g/dL (3.5-5.0); Alkaline Phosphatase 58 U/L (39-117); Anion Gap 10 (12-20); Aspartate Amino Transferase 23 U/L (5-31); Bilirubin Total 0.2 mg/dL (0.0-1.0); Blood Urea Nitrogen 6 mg/dL (9-16); Calcium 9.3 mg/dL (8.4-10.2); Carbon Dioxide 24 mmol/L (22-29); Chloride 111 mmol/L (96-108); Creatinine Clr Calc Pharmacy 103.1; Estimated Glomerular Filt Rate > 60; Glucose Random 90 mg/dL (60-115); Potassium 3.3 mmol/L (3.3-5.1); Sodium 142 mmol/L (135-145); Total Protein 7.2 g/dL (6.5-8.0); Troponin-I High Sensitivity < 2.7 ng/L (<3.5-17.0)
[2024-07-18 15:01] LABS: HCG Quantitative < 2 mIU/mL
[2024-07-18 16:36] VITALS: BP 103/67; PULSE 88; RESP 12; O2SAT 99
[2024-07-18 18:00] VITALS: BP 104/63; PULSE 88; RESP 12; TEMP 36.7; O2SAT 99
== END 2024-07-18 18:07 | disposition home or self-care (01) ==
PROVIDERS: Emergency Provider Emergency Medicine; PCP Nurse Practitioner Family
DX: F41.1 Generalized anxiety disorder (principal); F43.0 Acute stress reaction; R07.89 Other chest pain; R06.02 Shortness of breath; R11.0 Nausea; R10.2 Pelvic and perineal pain; Z79.899 Other long term (current) drug therapy; Z51.81 Encounter for therapeutic drug level monitoring
CPT/HCPCS: 36415; 71045; 80053; 84484; 84702; 85025; 93005; 99283; 99285

== ENCOUNTER → 2024-07-18 14:11 | Outpatient (BNV) | payer OTHER, SELFPAY | PROVIDERS: Emergency Provider Emergency Medicine; PCP Nurse Practitioner Family; Visit Provider Internal Medicine | DX: R07.9 Chest pain, unspecified (principal) | CPT/HCPCS: 93010 ==

== ENCOUNTER → 2024-07-18 15:09 | Outpatient (BNV) | payer OTHER, SELFPAY | PROVIDERS: Emergency Provider Emergency Medicine; PCP Nurse Practitioner Family; Visit Provider Radiology Diagnostic Radiology | DX: R07.9 Chest pain, unspecified (principal) | CPT/HCPCS: 71045 ==

== ENCOUNTER 2024-07-20 11:20 | Outpatient (AMB) | payer OTHER, SELFPAY ==
--- NOTE | 2024-07-20 11:21 | A.OFFPC_ITS ---
<Statement entered by Kiana Dias PA-C - 07/20/24 13:00> Reviewed noted and agree with note and plan. I did also evaluate the patient with PCP Maci Cuellar. Vital Signs 07/20/24 11:24 Height 5 ft 6 in BMI Reason not done Patient refused/unable BP 112/66 Blood Pressure Location Rt brachial Position Sitting Respiration 12 Pulse 98 Pulse Source Pulse Oximeter Pulse Oximetry (%) 100 Oxygen Delivery Method Room Air Intake Visit Reasons: Discuss Diagnosis in chart and multiple concerns Intake Note: Patient here to discuss dx in chart. Relay Record Clerk Required: No Allergies cephalexin Allergy (Severe, Verified 07/20/24 11:22) Difficulty Breathing Penicillins Allergy (Verified 07/20/24 11:22) Unknown prednisone Adverse Reaction (Verified 07/20/24 11:22) Anxiety Medication List - Last Reconciled 07/20/24 by Maci Cuellar, DEV MANAGER- azithromycin take 500 mg today (day 1), then 250 mg for 4 days (days 2-5) PO cholecalciferol (vitamin D3) 50 mcg PO DAILY clonazepam 0.5 mg PO BID PRN gabapentin 100 mg PO TID hydroxyzine HCl 25 mg PO BEDTIME loratadine 10 mg PO DAILY magnesium 250 mg PO BEDTIME omeprazole 20 mg PO DAILY Tobacco use date assessed: 07/18/24 Dental Screening Dental Screen Date: 07/18/24 HPI HPI Comments History of Present Illness Details 29-year-old female with alcoholism, GERD , MDD, benzodiazepine dependence, borderline personality disorder, benign paroxysmal positional vertigo, cochlear implant on the right due to congenital sensorineural hearing loss, migraine aura without headache, panic attacks, severe somatoform disorder Specialists Psychiatry and counselor Radiological Technician Neurology cards Surgeries: None Health maintenance Self reports up-to-date on vaccinations including her flu shot Pap smear (-) 2022 at [facility] per pt.Tetanus IZ 10/2016. Today's visit is a complex coordination of care visit with myself and NOAH Garner. We offered to call Mom today to have her be part of the visit; pt declined. She was made aware that this visit was to support her, ensure that we are all on the same page and to help coordinate her care as she has had multiple utilization of walk-in center's in the emergency room along with several visits to multiple providers within this health group followed by several health portal messages to several different providers. The intent of this visit was for clarity and to help streamline her medical care and to decrease utilization. The patient is a 29-year-old female presenting with worsening shortness of breath and chest pain. She reports waking up frequently at night gasping for air with an inability to breathe comfortably. These symptoms have been persistent and progressively worsening over time. She describes experiencing a high heart rate, shaking, and having significant difficulty with extremity function, particularly in her right hand. The patient indicates that her heart rate was significantly elevated during a recent emergency visit, and she has a history of a severe reaction to keflex that required hospitalization due to persistent tachycardia. Multiple chest x-rays have been performed, all showing no evidence of pneumonia, yet shortness of breath persists without relief from albuterol inhaler usage. The patient has noted a discrepancy in her medical records, such as being inaccurately documented as a heavy smoker, which has been corrected. She also reports a pattern of muscle aches comparable to previous episodes when she had colitis, alongside occurrences of severe vertigo. She is currently unable to work, thus has applied for short-term disability to accommodate the ongoing diagnostic and therapeutic processes. The patient acknowledges her anxiety and its exacerbation due to her current health issues. She has been prescribed azithromycin, which she is hesitant to take due to previous adverse antibiotic reactions. Her last emergency room visit was on 07/18/2023. [facility]. This workup was reviewed. Workup was negative. Discharge diagnosis anxiety. She was seen by primary care on the same day and prescribed antibiotics, azithromycin which she did not start. She has asked to remove her psych diagnoses from her record. When I 1st asked her who was supporting her from a psychiatric standpoint she states that she has a monthly counseling at [facility] in [place]. I asked her if the service has could be increased to weekly given her current state. She reports that her counselor left and she is being assigned a new counselor. Reports that she met with some on this morning but is unsure who. She then reports that she has an appointment in August with a [facility] psychiatrist. Record review does not show this. The patient was made aware that I can not find this information. She previously had a prescriber, [facility]. Who she reports that she stopped seeing in January due to health insurance changes. She states that she has not had a psychiatric prescriber since this time. We have asked for her to provide documentation from her psychiatric providers regarding her accurate mental health diagnoses as these diagnoses were on her chart prior to the care establish with us. She has been able unable to do so thus far however she reports that she has a reach out to her previous prescriber for documents. Social History - The patient is currently employed but is unable to work due to health concerns and is applying for short-term disability. - She lives independently but was noted to attend the visit alone without family support. - She denies any current tobacco use coleen pite previous inaccurate records. - The patient reports occasional alcohol consumption, last consuming on New ?s Day. Physical Exam General: Awake, alert. No apparent distress Eyes: Sclera and conjunctiva clear bilaterally Cardiovascular: Regular rate and rhythm, heart sounds good, no murmurs Respiratory: Clear to auscultation bilaterally, oxygen levels recorded at 100% Psych: Tearful, anxious, tremulous. Gaurded. Non-linear dialogue. Unable to recall accurrate details of her past care. Patient reports feeling dizzy at the current time. She did drive herself here. She reports that she was safe to drive home as she feels like this all of the time and drives without incident. We offered to call a ride for her to ensure her safety however she declined. She was aware of the risk associated with this up to and including . She states that she has eaten today and that she has a water bottle in the car. She reassures us that she is okay to leave on her own. Results - Labs: Blood glucose level done today i n office, 101 mg/dL. - Tests: Chest x-rays (multiple) WNL 06/04-07/18/2024; Pulmonary function tests scheduled, cardiac evaluations planned, including stress test and echocardiogram Plan I placed a call over to the [facility] to let them know that she will be heading over there today for further care management. - Shortness of breath and chest pain: Co ntinuation of cardiac and pulmonary assessments, including echocardiogram and stress testing as scheduled. Reassessment of inhaler use, discontinue if no benefit observed. - Review of historical medication sensit ivities to be integrated into future pharmacological decision-making. Patient was informed and verbally consented to the use of an ambient scribe for clinic note documentation during this visit. Discussion Notes During our conversation, I reassured the patient that no immediate life- threatening conditions were identified. We discussed the significance of anxiety in exacerbating symptoms, encouraging ongoing counseling support. The risks of unnecessary diagnostic radiation were also addressed due to her frequent symptom-related emergency visits. I articulated the necessity of streamlined care through coordinated appointments and emphasized prioritizing scheduled testing. I empathized with her concern over medical record inaccuracies and shared steps for correction. Comprehensive care from the integrated health team was explained as critical in consolidating her health management plan. Patient Instructions - Follow up with assigned appointments f or cardiac and pulmonary testing as scheduled. - Visit the [facility] to explore immediate outpatient support. - Discontinue albuterol inhaler if no re spiratory relief is perceived. - Avoid emergency visits unless absolute medical necessity arises, such as significant changes in vital signs, acute chest pain, or severe respiratory distress. Seek international student counselor from family or friends during anxious episodes. - Monitor and document symptoms and any factors alleviating or exacerbating them prior to next consultation. - Avoid risks associated with multiple X -rays by limiting repeat tests unless clinically directed. This note is constructed using voice recognition software. While every effort has been made to ensure accuracy in plant sprayer, still errors may have been included Sometimes, these errors may affect the content or meaning of the given sentence . Total time spent caring for the patient today was 75 minutes. This includes time spent before the visit reviewing the chart, time spent during the visit, and time spent after the visit on documentation [facility] Medical History Epigastric abdominal pain Alcohol use disorder ROMY (generalized anxiety disorder) Acute bronchitis Open wound of right knee Cellulitis of buttock, left Cochlear implant in place Encounter to establish care Panic attacks Severe anxiety Anxiety Surgical History No pertinent past surgical history Family History Other Mental health disorder Social History Household Members: Family Housing: House Do you presently have visiting nurse or other home services: No Alcohol intake: former Comment: currently not using alcohol as of Jul 2024 Patient Tobacco Use Status: Never used Tobacco e-Cigarette/Vaping Use: Never Used Second Hand Smoke Exposure: No service: No 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al status: employed 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 05166 - PHQ-9 Billing: Patient declined-do not bill Source: Developed by Drs. Spencer Gimenez, Rosanne Gonzalez, Boaz Ford and colleagues, with an educational jose r from [employer]. Thrive Questionnaire Date Thrive assessed: 07/20/24 I am a: Patient What is your living situation today?: I have a steady place to live Within the past 12 months, did the food you bought not last and you didn't have the money to get more?: Never true Within the past 12 months, did you worry whether your food would run out before you got money to buy more?: Never true Do you have trouble paying for medicines?: No Do you have trouble getting transportation to medical appointments?: No Do you have trouble paying your heating and electricity bill?: No Do you have trouble taking care of your child, family member or friend?: No Do you have trouble with day-to-day activities such as bathing, preparing meals, shopping, managing finances, etc.?: No Are you currently unemployed and looking for a job?: No Are you interested in more education?: No Please select the resources that you would like help with: None Currently or been in a relationship where the following occur: No concerns reported THRIVE Score: 0 ROMY-7 AMB Questionnaire ROMY-7 Date ROMY - 7 assessed: 03/27/24 Source: Developed by Drs. Spencer Gimenez, Rosanne Gonzalez, Boaz Ford and colleagues, with an educational jose r from [employer]. Physical exam (Primary Care) Vital Signs: Last Vital Signs Pulse 98 07/20/24 11:24 Resp 12 07/20/24 11:24 BP 112/66 07/20/24 11:24 Pulse Ox 100 07/20/24 11:24 Oxygen Delivery Method Room Air 07/20/24 11:24 Tobacco/Smoking Status: Tobacco use Status Tobacco use date assessed 07/18/24 07/20/24 11:25 Patient Tobacco Use Status Never used Tobacco 07/20/24 11:25 e-Cigarette/Vaping Use Never Used 07/20/24 11:25 Thrive Assessment: Date of Thrive Assessment Date Thrive assessed 07/20/24 07/20/24 11:25 Currently or been in a relationship where the following occur: No concerns reported Results AMB Random Glucose (hemocue) AMB Random Glucose (hemocue) 101 mg/dL Last Edit by HAKEEM Zhu on 07/20/24 12:18 Coding Level of Care Code Est Pt Level 5 (50203) Complex EM visit Add On G2211 Diagnoses Hospital discharge follow-up Z09 Coordination of complex care Z71.89 Anxiety about health R45.89 Dizziness R42 Chronic cough R05.3 CPT Codes PR[facility]ONG OUTPT/OFFICE VIS - G2212 Assessment & Plan Assessment & Plan (1) Hospital discharge follow-up: Code(s): Z09 - Encounter for follow-up examination after completed treatment for conditions other than malignant neoplasm Category: Medical (2) Coordination of complex care: Code(s): Z71.89 - Other specified counseling Category: Medical (3) Anxiety about health: Code(s): R45.89 - Other symptoms and signs involving emotional state Category: Medical (4) Dizziness: Code(s): R42 - Dizziness and giddiness Category: Medical (5) Chronic cough: Code(s): R05.3 - Chronic cough Category: Medical Plan . Orders: Orders AMB Random Glucose (hemocue) Today R42 - Dizziness and giddiness, Z13.9 - Encounter for screening, unspecified Medications: Discontinued azithromycin Discontinued Reason: Patient no longer taking take 500 mg today (day 1), then 250 mg for 4 days (days 2-5) PO 6 tabs 0RF Patient Instructions: Disability Benefits The [place] [facility] ([facility]) can help you understand how working may affect your benefits. Understanding your disability benefits can be complicated, but you can work and still receive benefits. The [facility] is part of the solution to this process and can help you reach your goal of financial independence. Your local Vocational Rehabilitation Office and Project IMPACT is often the best place to get information. [facility] Disability Determination Services (DDS) is a division of the [place] [employer] Commission which is 100% funded by the Social Security Administration (SSA). [facility] Disability Examiners and medical consultants determine eligibility of [place] applicants for two disability programs: Social Security Disability Insurance (SSDI) - ages 18- 65 and Supplemental Security Income (SSI) - ages - 65. [facility] Disability Determination Services (DDS) is a division of the [place] [employer] Commission ([facility]), which is 100% funded by the Social Security Administration (SSA). Who we are and what we do [facility] disability examiners and medical consultants determine eligibility of [place] applicants for 2 disability programs: Social Security Disability Insurance (SSDI), ages 18 - 65 Supplemental Security Income (SSI), ages - 65 If you think you may be eligible for payments, call to file a claim or contact your local Social Security Office . You must contact the Social Security Administration to apply for benefits. If you are looking for an online application for either SSDI or SSI visit ssa.gov. For an update on case status call the Vocational Pilot Plant Operator (VDE) as identified in your introductory claimant letter. Looking for an overview of annual benefits for their case ssa.gov or The claims processed by the [facility] include: Initial applications Reconsideration applications ? First appeal of a denied initial application Continuing Disability Reviews ? Periodic reviews to determine if you should continue receiving benefits Disability Hearings ? Nlxx-fn-nopa informal hearing as a part of the appeal of a Continuing Disability Review cessation determination Special outreach efforts are made to homeless shelters and individuals diagnosed with HIV The S has offices in [place] and [place]. Consultants at [facility] We employ more than 70 medical and psychological consultants in-house and more than 300 medical and psychological consultants throughout the [facility] to assist us in determining claimants' eligibility for disability benefits under Social Security. How to Contact [facility] Online File a claim on-line [email or web address] Phone: [place] Call [facility] MIRANDA [place] [phone] Call [facility] [phone] [place] toll free [place] Call [facility] [place] [phone] Call [facility] [phone] [place] toll free Call [facility] [phone] To file an initial claim with [facility] TTY Call [facility] MIRANDA [place] [phone] To file an initial claim with SSA Fax [place] or [phone] [place] Address [place] [address] [place] [address], [address], [place] [address] Crisis Hotlines Suicide prevention, domestic violence, and other crisis hotlines for youth, young adults, and their friends and families. National Runaway Safeline: The [employer] Runaway Safeline helps youth who have run away, are thinking about running away, or who already ran away but are ready to come home. Parents and guardians can also contact the hotline if they are worried about their child running away or if their child has already left home. The hotline is available 24 hours a day, seven days a week. Youth, parents, and guardians can also use the online chat feature on the Runaway Safeline's website to ask for help and get support, or [place] [address]. [place] [employer]una[employer] National Suicide Prevention Lifeline: The National Suicide Prevention Lifeline is a network of local crisis centers that are available 01/02 to provide support for youth and adults who are in any kind of emotional crisis. In addition to the main hotline number listed above, there are several other numbers to call depending on your needs: Danish Language: Deaf and Hard of [phone] Veterans: Disaster Distress: Anyone can also use their online chat feature on their website. National Suicide Prevention Lifeline [facility] Helpline: The [facility] Helpline is available to anyone in [place] who is need of emotional support. Anyone can call or text the helpline to receive help from specially trained volunteers. [place] high school and college students can also get online support through the IMH[employer]_ program. For high school students, volunteers ages 15-18 are available Wednesday- from 6-9PM. For college students, IMHear_ is available Wednesday-Wednesday from 5-9PM. The [employer] Project - The [employer] Project is a 01/02 crisis intervention and suicide prevention hotline for LGBTQ youth. Youth can also text Juancarlos to for support, or use the online chat feature on the [employer] Project's website. [employer] is available Wednesday-Wednesday between 3-10PM. [employer]Chat is available seven days a week between 3-10PM. SafeLink: SafeLink is for anyone who is being affected by domestic violence or dating violence. Volunteers at [employer] speak Icelandic and Danish, and [employer] also has a service that can provide translation in more than 130 languages. TTY:
[2024-07-20 11:24] VITALS: BP 112/66; PULSE 98; RESP 12; O2SAT 100
== END 2024-07-20 15:59 | disposition home or self-care (01) ==
PROVIDERS: PCP Nurse Practitioner Family; Visit Provider Nurse Practitioner Family
DX: Z09 Encounter for follow-up examination after completed treatment for conditions other than malignant neoplasm (principal); Z71.89 Other specified counseling; R45.89 Other symptoms and signs involving emotional state; R42 Dizziness and giddiness; R05.3 Chronic cough; Z13.9 Encounter for screening, unspecified

== ENCOUNTER → 2024-07-20 11:20 | Outpatient (BNVA) | payer OTHER, SELFPAY | PROVIDERS: PCP Physician Assistant; Visit Provider Physician Assistant | DX: R45.89 Other symptoms and signs involving emotional state (principal); R42 Dizziness and giddiness; R05.3 Chronic cough; Z71.89 Other specified counseling | CPT/HCPCS: 82948 ==

== ENCOUNTER → 2024-07-25 12:38 | Outpatient (BNVA) | payer OTHER, SELFPAY | PROVIDERS: PCP Physician Assistant ==

== ENCOUNTER 2024-07-27 15:54 | Outpatient (REF) | payer OTHER, SELFPAY ==
--- NOTE | 2024-07-27 15:58 | PFT_ITS ---
Flows: FEV1: 116 % of predicted at 3.94 L FVC: 105 % of predicted at 4.28 L FEV1/FVC: 92 % Bronchodilator response: Absent Volumes: Patient unable to perform lung volumes maneuvers. Diffusion capacity: Normal Impression: Normal spirometry and diffusion capacity. No bronchodilator response. Patient unable to perform lung volume maneuvers. MTDD
== END 2024-07-27 15:55 | disposition home or self-care (01) ==
LOC: HO.RESP 15:54
PROVIDERS: PCP Physician Assistant; Visit Provider Physician Assistant
DX: R06.02 Shortness of breath (principal)
CPT/HCPCS: 94010; 94640; 94727; 94729

== ENCOUNTER → 2024-07-27 15:58 | Outpatient (BNV) | payer OTHER, SELFPAY | PROVIDERS: PCP Physician Assistant; Visit Provider Internal Medicine Pulmonary Disease | DX: R06.02 Shortness of breath (principal) | CPT/HCPCS: 94060; 94729 ==

== ENCOUNTER 2024-07-28 11:08 | Outpatient (AMB) | payer OTHER, SELFPAY ==
--- NOTE | 2024-07-28 11:19 | MHC.AM.SUB ---
Intake Visit Reasons: MAT Office Allergies cephalexin Allergy (Severe, Verified 07/20/24 11:22) Difficulty Breathing Penicillins Allergy (Verified 07/20/24 11:22) Unknown prednisone Adverse Reaction (Verified 07/20/24 11:22) Anxiety HPI HPI MAT Office: Details: Patient presents for AUD treatment follow up Gabapentin 300mg TID PCP taper plan 100mg TID and Clonazepam Started Buspirone yesterday Drank 2x over the last month--did not like the way she felt the day after (high anxiety) 2 days ago last drink Reports poor sleep brain zaps on right side, worried she is going to have a seizure Patient verbalizing that she is very unhappy about gabapentin taper Feels it is too fast Asking this chief underwriter to take over prescribing --request declined Encouraged patient to trial taper and utilize anxiety medications as prescribed. Patient reporting she will not Proposed admission to [facility] to taper under medical supervision--patient declined this stating she has to return to work In the end patient stated that she is going to take Gabapentin 300mg 3 times a day, my moms dog takes Gabapentin, I'll just take his if I need to Again encouraged patient to follow plan set by PCP, patient declined I can't find anyone in the whole [facility] who will help me . Review of Systems Const Reports difficulty sleeping and Reports headache(s) (brain zaps) ENT Reports vertigo and Reports headache(s) (brain zaps) Musc Reports tingling (right arm and hand ) Neuro Reports vertigo, Reports headache(s) (brain zaps) and Reports tingling (right arm and hand ) Psych Reports abnormal sleep pattern, Reports anxiety and Reports difficulty concentrating Physical Exam Const General: cooperative, anxious and well groomed Nutritional Appearance: average body habitus Orientation/consciousness: patient oriented x3 Limitations: no limitations Neuro General: patient oriented x3 Psych Appearance: well kempt Speech and movement: Normal speech and movement present Affect: Anxious affect present Attitude: cooperative Thought process: Circumstantial thought process present Thought content: Normal thought content present Insight: Limited insight present (Psych) Judgement: Fair judgement present (Psych) [facility] Medical History (Updated 07/28/24 @ 11:53 by Solange Fry CNP) Alcohol use disorder Epigastric abdominal pain ROMY (generalized anxiety disorder) Acute bronchitis Open wound of right knee Cellulitis of buttock, left Cochlear implant in place Encounter to establish care Panic attacks Severe anxiety Anxiety Surgical History No pertinent past surgical history Family History Other Mental health disorder Social History Household Members: Family Housing: House Do you presently have visiting nurse or other home services: No Alcohol intake: former Comment: currently not using alcohol as of Jul 2024 Patient Tobacco Use Status: Never used Tobacco e-Cigarette/Vaping Use: Never Used Second Hand Smoke Exposure: No service: No 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al status: employed 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
== END 2024-07-28 13:01 | disposition home or self-care (01) ==
PROVIDERS: PCP Physician Assistant; Visit Provider Nurse Practitioner Psychiatric/Mental Health
DX: F10.90 Alcohol use, unspecified, uncomplicated (principal)
CPT/HCPCS: 99213

== ENCOUNTER → 2024-07-28 11:08 | Outpatient (BNVA) | payer OTHER, SELFPAY | PROVIDERS: PCP Physician Assistant; Visit Provider Nurse Practitioner Psychiatric/Mental Health ==

== ENCOUNTER 2024-08-03 08:24 | Outpatient (AMB) | payer OTHER, SELFPAY ==
--- NOTE | 2024-08-03 08:27 | A.OFFPC_ITS ---
Vital Signs 08/03/24 08:31 Height 5 ft 6 in BMI Reason not done Patient refused/unable BP 98/68 Blood Pressure Location Rt brachial Position Sitting Respiration 12 Pulse 95 Pulse Source Pulse Oximeter Temp 96.8 F Temp Source Oral Pulse Oximetry (%) 100 Oxygen Delivery Method Room Air Intake Visit Reasons: chidi from [facility] Intake Note: follow up [employer]i Inspector Required: No Allergies cephalexin Allergy (Severe, Verified 08/03/24 08:28) Difficulty Breathing Penicillins Allergy (Verified 08/03/24 08:28) Unknown prednisone Adverse Reaction (Verified 08/03/24 08:28) Anxiety Tobacco use date assessed: 07/18/24 Dental Screening Dental Screen Date: 07/18/24 HPI HPI Comments History of Present Illness Details 29-year-old female with alcoholism, GERD , MDD, benzodiazepine dependence, borderline personality disorder, benign paroxysmal positional vertigo, cochlear implant on the right due to congenital sensorineural hearing loss, migraine aura without headache, panic attacks, severe somatoform disorder Specialists Psychiatry and counselor [facility] cards Surgeries: None Health maintenance Self reports up-to-date on vaccinations including her flu shot Pap smear (-) 2022 at [facility] [employer] per pt.Tetanus IZ 10/2016. Presents today w/ Mom. The patient is a 29-year-old female presenting with ongoing anxiety and dissatisfaction regarding her primary care relationship and work support documentation. She reports having significant symptoms leading her to seek care from her drilling inspector and neurologist. The patient has undergone a variety of tests to support this care, including an echocardiogram, a stress test, and a tilt table test, all performed at [facility], though results have not yet been communicated. She expresses that these symptoms have been impactful enough to require emergency room visits and is seeking a more streamlined and supportive relationship with her primary care provider. Additionally, she voices frustrations about being misunderstood and not receiving necessary documentation for work, specifically relating to leave applications and miscommunication on her past medical records, including an inappropriate diagnosis of Borderline Personality Disorder. The patient has an upcoming appointment with a psychiatrist and several therapy sessions scheduled. Today she tells me that she has an appointment at [facility] scheduled 08/21/2024 with a psychiatrist and an appointment with a therapist on August [address] [facility]. She does not have the names of these providers. She also reports that she scheduled an appointment with a private counselor in [place] whose name is Charisse Reese. Social History - Employment: Works at [employer] which she states is [employer] - Mental Health: Longstanding anxiety is sues since childhood, per Mom today. Discussion Notes During this consultation, I discussed with the patient the importance of clear and streamlined communication with healthcare providers for effective care. We spoke about the necessity of ensuring all necessary forms, particularly for FMLA or intermittent leave, are correctly processed to avoid work-related issues. I reassured her of our commitment to working together to ensure she receives all necessary medical information and support. There was a review of previous miscommunication regarding her medical records; I reiterated our commitment to verifying and addressing any inaccuracies, emphasizing the value of signing release forms for all mental health providers involved, including those at [facility], for a holistic view of her care. I provided reassurance that we take her concerns seriously and affirmed her need for psychiatric and counseling support to aid her mental health journey. I spent time discussing with her and her mother about the need to stay with 1 primary care provider and the risks of seeing multiple providers. I also reviewed specifically that the paperwork that was delivered to us from her and that was received from the [place] was that of disability and not for FMLA. I did show this form to her and her mom today. Also discuss the proper use of the patient portal and discuss that sending several messages per day to myself along with several other providers and this office and the call center creates a sense of emergency for staff trying to triage this. Educated on the proper use of the portal which would be for infrequent and nonemergent necessary communication with the appropriate care members of her team. I asked the mother specifically if she was surprised to hear about the discrepa ncies between what I had to show her in the chart and what her daughter was saying. Cherelle became upset and asked to speak to my manager inventory management stating that I was being confrontational. The mother quickly stopped Cherelle and told her that I was listening and showing care and compassion to her and that she needed to listen. I thanked both of them for coming into the office today to have this discussion. Emphasized the importance of streamline care to include that of both her mental and physical health. At the conclusion of the visit, both thanked me for my time. I thanked them for their time. I offered them a work note as they both had to return to work and I was running late today. Cherelle did want an note for today which was provided. Her mother stated that she did not need one. I reminded them that if she were to need FMLA that I would be happy to complete something like this as this is very appropriate for her to attend her appointments however I did not provide her with any leave of absence notes as I never medically advise her to stay out of work for any period of time nor did I treat her for any acute instances such as an emergency room visit. Spent some time educating about the difference between FMLA, disability and sick notes. Results - Echocardiogram: Results pending from [facility]. - Stress Test: Results pending from [facility] [place]. - Tilt Table Test: Results pending from [facility]. Pt states all normal. I do not have these but will request. Plan - Reinforce the need for accurate FMLA d ocumentation and provide necessary support for intermittent leave due to medical appointments. - Encourage follow-up with [facility] concerning pending cardiac tests to ensure timely review of results. - [facility] through scheduled psychiatric and therapy appointments. - Encourage the patient to sign a releas e of information for proper coordination with [facility] for psychiatric care. - Address the concern regarding past med ical record inaccuracies, specifically related to the diagnosis of Borderline Personality Disorder which needs proper documentation for removal. Patient was informed and verbally consented to the use of an ambient scribe for clinic note documentation during this visit. Patient Instructions - Follow up with your employer regarding the correct processing of FMLA or intermittent leave documentation. - Schedule a consultation with [facility] to ensure timely review of cardiac test results. - Continue attending psycho-therapeutic appointments to support mental health management. - Sign releases of information for [facility] and future mental health providers to facilitate comprehensive care. - Monitor symptoms and report any signif icant changes or concerns as needed. Total time spent caring for the patient today was 80 minutes. This includes time spent before the visit reviewing the chart, time spent during the visit, and time spent after the visit on documentation, reviewing laboratory results, diagnostic imaging, medications, performing a medically necessary evaluation, counseling on diagnoses, care coordination, ordering appropriate tests, ordering appropriate medications, review of tests performed by other providers, reporting test results with the patient, communication with other healthcare providers. This note is constructed using voice recognition software. While every effort has been made to ensure accuracy in investigations chief, still errors may have been included Sometimes, these errors may affect the content or meaning of the given sentence . [facility] Medical History (Updated 07/28/24 @ 11:53 by Solange Fry CNP) Alcohol use disorder Epigastric abdominal pain ROMY (generalized anxiety disorder) Acute bronchitis Open wound of right knee Cellulitis of buttock, left Cochlear implant in place Encounter to establish care Panic attacks Severe anxiety Anxiety Surgical History No pertinent past surgical history Family History Other Mental health disorder Social History Household Members: Family Housing: House Do you presently have visiting nurse or other home services: No Alcohol intake: former Comment: currently not using alcohol as of Jul 2024 Patient Tobacco Use Status: Never used Tobacco e-Cigarette/Vaping Use: Never Used Second Hand Smoke Exposure: No service: No 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al status: employed 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 60836 - PHQ-9 Billing: Patient declined-do not bill Source: Developed by Drs. Spencer Gimenez, Rosanne Gonzalez, Boaz Ford and colleagues, with an educational jose r from [employer]. Thrive Questionnaire Date Thrive assessed: 08/03/24 I am a: Patient What is your living situation today?: I have a steady place to live Within the past 12 months, did the food you bought not last and you didn't have the money to get more?: Never true Within the past 12 months, did you worry whether your food would run out before you got money to buy more?: Never true Do you have trouble paying for medicines?: No Do you have trouble getting transportation to medical appointments?: No Do you have trouble paying your heating and electricity bill?: No Do you have trouble taking care of your child, family member or friend?: No Do you have trouble with day-to-day activities such as bathing, preparing meals, shopping, managing finances, etc.?: No Are you currently unemployed and looking for a job?: No Are you interested in more education?: No Please select the resources that you would like help with: None Currently or been in a relationship where the following occur: No concerns reported THRIVE Score: 0 ROMY-7 AMB Questionnaire ROMY-7 Date ROMY - 7 assessed: 08/03/24 Feeling nervous, anxious, or on edge: 3 = Nearly every day Not being able to stop or control worryin = Nearly every day Worrying too much about different things: 3 = Nearly every day Trouble relaxin = Nearly every day Being so restless that it is hard to sit still: 3 = Nearly every day Becoming easily annoyed or irritable: 3 = Nearly every day Feeling afraid as if something awful might happen: 3 = Nearly every day Total ROMY-7 score (0-4 normal; 5-9 mild; 10-14 moderate; 15-21 severe): 21 Source: Developed by Drs. Spencer Gimenez, Rosanne Gonzalez, Boaz Ford and colleagues, with an educational jose r from [employer]. ROMY-7 Assessment Billing ROMY-7 Assessment Tool: ROMY-7 Assessment 46818 Physical exam (Primary Care) Vital Signs: Last Vital Signs Temp 96.8 F 08/03/24 08:31 Pulse 95 08/03/24 08:31 Resp 12 08/03/24 08:31 BP 98/68 08/03/24 08:31 Pulse Ox 100 08/03/24 08:31 Oxygen Delivery Method Room Air 08/03/24 08:31 Tobacco/Smoking Status: Tobacco use Status Tobacco use date assessed 07/18/24 08/03/24 08:30 Patient Tobacco Use Status Never used Tobacco 08/03/24 08:30 e-Cigarette/Vaping Use Never Used 08/03/24 08:30 Thrive Assessment: Date of Thrive Assessment Date Thrive assessed 08/03/24 08/03/24 08:30 Currently or been in a relationship where the following occur: No concerns reported Coding Level of Care Code Est Pt Level 5 (65901) Complex EM visit Add On G2211 Diagnoses Coordination of complex care Z71.89 Anxiety F41.9 Mood disorder F39 CPT Codes [facility] OUTPT/OFFICE VIS - G2212 Additional Codes ROMY-7 Assessment Billing - ROMY-7 Assessment Tool: ROMY-7 Assessment 01403 ([id number]) Assessment & Plan Assessment & Plan (1) Coordination of complex care: Code(s): Z71.89 - Other specified counseling Category: Medical (2) Anxiety: Code(s): F41.9 - Anxiety disorder, unspecified Category: Medical (3) Mood disorder: Code(s): F39 - Unspecified mood [affective] disorder Category: Medical Plan .
[2024-08-03 08:31] VITALS: BP 98/68; PULSE 95; RESP 12; TEMP 36; O2SAT 100
--- OUTSIDE RECORDS SUMMARY | 2024-08-03 08:41 | XMS_ITS | Continuity of Care Document ---
Author Organization [facility] Address [address] [address]- [facility] [place] [facility] [place] Name Relationship Address Phone FRANCISCO JAVIER LEMUS Personal Relationship Unknown Unavai lable LEMUS, VANDANA father Unknown Unavailable MAZIK, GINO [place] Personal Relationship Unknown Unav ailable JULES, RIGOBERTO Personal Relationship Unknown Unava ilable MAZIK, FRANCISCO JAVIER mother Unknown Unavailable MAZIK, GINO Personal Relationship Unknown Unavai lable JULES, RIGOBERTO spouse Unknown Unavailable JULES, CHRISTOPHER Personal Relationship Unknown Unavailable JULES, CHRISTOPHER Personal Relationship Unknown Unavailable MAZIK, GINO Personal Relationship Unknown Unavai lable Care Team Providers Care Assistant Spa Manager Name Role Phone Kiana Cardona Primary Care Physician ([facility])[phone] [place] [facility] [place]24 - 07/28/24 [facility] [address] [address] Attending Physician: Rhea Cortés Admitting Physician: Rhea Cortés Referring Physician: Rhea Cortés Encounter Type: One Time OP Allergies, Adverse Reactions, Alerts No Known Medication Allergies Immunizations Given and Recorded Vaccine Date Status Refusal Reason SARS-CoV-2 (COVID-19) mRNA-1273 vaccine 02/14/21 R ecorded SARS-CoV-2 (COVID-19) mRNA-1273 vaccine 12/04/20 R ecorded influenza virus vaccine, inactivated 1 06/19/19 Gi chuck tetanus/diphtheria/pertussis, acel(Tdap) 10/21/16 Given 1Result Comment: [facility]:79663-803-41 Medications Claritin 5 mg oral tablet, chewable 1 tablet = 5 mg, Daily, 0 Refills, Maintenance, 08/04/19 2:58:00 PM EST Start Date: 08/04/19 Status: Ordered Repeat number: 1 Flonase 50 mcg/inh nasal spray 1 sprays, Nares, Both, 2 times a day, # 16 Gm, 0 Refills, Maintenance, 05/26/18 11:16:10 AM EST, [place], [facility]/pharmacy #[id number], 1 sprays Nares, Both 2 times a day Start Date: 05/26/18 Status: Ordered Quantity: 16.0 Unit: g Repeat number: 1 gabapentin 300 mg oral capsule See Instructions, Take one capsule (300mg) in a.m., two capsules (600mg) at noon, and two capsules at night. for 7 days. Then take one capsules in the a.m. (300mg), one capsule )300mg) at noon, and two caspules (600mg) at night for 7 days. Then take one capsule (300mg) three times daily., # 84 capsule, Refills 1, Tot. Refills 1, Maintenance, 09/25/21 10:21:00 AM EDT, Instructions Replace Required Details, Route to Pharmacy Electronically, [facility]/pharmacy #[id number], Partial fill upon patient request if the prescription is for a schedule II opioid drug., 167, cm, 09/02/21 11:04:00 EST, Height Start Date: 09/25/21 Status: Ordered Quantity: 84.0 Unit: capsule Repeat number: 2 HUM Nutristion daily clense HUM Nutristion daily clense, Refills 0, Maintenance, 06/25/21 1:44:00 PM EST, Supply Start Date: 06/25/21 Status: Ordered Repeat number: 1 ibuprofen 800 mg oral tablet 800 mg, 1, tablet, By Mouth, 3 times a day, PRN, # 15 tablet, Refills 0, Tot. Refills 0, Maintenance, for pain, 09/02/23 5:59:00 PM EST, Route to Pharmacy Electronically, [facility]/pharmacy #[id number], Partial fill upon patient request if the prescription is for a schedule II opioid drug., 167, cm, 10/21/21 11:27:00 EDT, Height, 61.4, kg, 08/29/23 13:53:00 EST, Dry Weight Start Date: 09/02/23 Status: Ordered Quantity: 15.0 Unit: tablet Repeat number: 1 Magnesium Carbonate = 54 mg, By Mouth, Daily, 0 Refills, Maintenance, 06/25/21 1:43:00 PM EST, Partial fill upon patient request if the prescription is for a schedule II opioid drug. Start Date: 06/25/21 Status: Ordered Repeat number: 1 metoprolol 25 mg oral tablet, extended release 12.5 mg, 0.5, tablet, By Mouth, Daily, # 15 tablet, Refills 11, Tot. Refills 11, Maintenance, 07/13/24 9:10:00 AM EST, Route to Pharmacy Electronically, [facility]/pharmacy #[id number], Partial fill upon patient request if the prescription is for a schedule II opioid drug., 167, cm, 07/13/24 8:36:00 EST, Height, 61.4, kg, 08/29/23 13:53:00 EST, Dry Weight Start Date: 07/13/24 Status: Ordered Quantity: 15.0 Unit: tablet Repeat number: 12 miSOPROStol 200 mcg oral tablet See Instructions, Place 2 tabs between cheek and gums on EACH side, let dissolve for 30 min then swallow the rest with water, # 4 tablet, 1 Refills, Maintenance, 09/02/23 5:58:00 PM EST, [facility]/pharmacy #[id number], Partial fill upon patient request if the prescription is for a schedule II opioid drug., 167,cm, 10/21/21 11:27:00 EDT, Height, 61.4, kg, 08/29/23 13:53:00 EST, Dry Weight Start Date: 09/02/23 Status: Ordered Quantity: 4.0 Unit: tablet Repeat number: 2 Multivitamin 0 Refills, Maintenance, 09/02/23 2:37:00 PM EST, Partial fill upon patient request if the prescription is for a schedule II opioid drug. Start Date: 09/02/23 Status: Ordered Repeat number: 1 ondansetron 4 mg oral tablet, disintegrating 1 tablet = 4 mg, By Mouth, Every 8 hours, PRN Nausea & Vomiting, # 10 tablet, 0 Refills, Maintenance, 09/02/23 5:58:00 PM EST, [place], [facility]/pharmacy #[id number], Partial fill upon patient request if the prescription is for a schedule II opioid drug., 167, cm, 10/21/21 11:27:00 EDT, Height, 61.4, kg, 08/29/23 13:53:00 EST, Dry Weight Start Date: 09/02/23 Status: Ordered Quantity: 10.0 Unit: tablet Repeat number: 1 oxyCODONE 5 mg oral tablet 5 mg, 1, tablet, By Mouth, Every 6 hours, PRN, # 5 tablet, Refills 0, Tot. Refills 0, Maintenance, as needed for pain, 09/02/23 5:59:00 PM EST, Route to Pharmacy Electronically, [facility]/pharmacy #[id number], Partial fill upon patient request if the prescription is for a schedule II opioid drug., 167, cm, 10/21/21 11:27:00 EDT, Height, 61.4, kg, 08/29/23 13:53:00 EST, Dry Weight Start Date: 09/02/23 Status: Ordered Quantity: 5.0 Unit: tablet Repeat number: 1 Multivitamins By Mouth, Daily, 0 Refills, Maintenance, 09/02/23 2:37:00 PM EST, Partial fill upon patient request if the prescription is for a schedule II opioid drug. Start Date: 09/02/23 Status: Ordered Repeat number: 1 PriLOSEC OTC 20 mg oral delayed release tablet 1 tablet = 20 mg, By Mouth, 2 times a day, # 120 tablet, 0 Refills, Maintenance, 03/27/20 2:12:00 PMEDT, EC Tablet Start Date: 03/27/20 Status: Ordered Quantity: 120.0 Unit: tablet Repeat number: 1 Vitamin D 80858 iu oral capsule 50,000 International_Units, By Mouth, Daily, Refills 0, Maintenance, 09/02/23 2:37:00 PM EST, Partial fill upon patient request if the prescription is for a schedule II opioid drug. Start Date: 09/02/23 Status: Ordered Repeat number: 1 Zoloft 25 mg oral tablet 1 tablet = 25 mg, By Mouth, Daily, 0 Refills, Maintenance, 09/02/23 2:36:00 PM EST, Partial fill upon patient request if the prescription is for a schedule II opioid drug. Start Date: 09/02/23 Status: Ordered Repeat number: 1 Problem List Condition Confirmation Course Effective Dates Status H ealth Status Informant Alcoholism Confirmed Active Anxiety about health Confirmed Active BPPV (benign paroxysmal positional vertigo) Confirmed Active Benzodiazepine dependence Confirmed Active Borderline personality disorder Confirmed Active Cochlear implant in place -right Confirmed Active Congenital sensorineural hearing loss Confirmed Active Migraine aura without headache Confirmed Active Anxiety and depression Confirmed Active Panic attacks Confirmed Active Severe somatic symptom disorder Confirmed Active Social History Social History Type Response Smoking Status Never smoker; Tobacc o user in household: No entered on: 10/21/16 Sex Female Sex Representation Female (finding) [place] Heart * Event Display: Echocardiogram - Complete Authored Date: [id number] Transthoracic Echocardiography Report (TTE) Patient Demographics Patient Name SHAR VICENTE Date of Study 07/21/2024 Corporate Gender Female Facility Race Unknown Ethnicity Date of 1995 Height: 66 inches Age 29 year(s) Weight: 134.5 pounds Accession Number [id number] BSA: 1.69 m2 Room Number BMI: 21.71 kg/m2 Referring Physician Gasper ZAMORA Interpreting Osbaldo Watts MD Physician Sewer Line Repairer Kenan Coffman Indications Tachycardia. Study Data Type of Study TTE procedure:Echo Complete-Doppler, Colorflow, M-Mode. Procedure Information:Saline (bubble study) was administered by NOAH . Study Date07/21/2024 Start Time: 08:07 AM Study Location: [facility] Echo Study Status: Echo lab Patient Status: Routine Technical Quality: Adequate Blood Pressure:112/64 mmHg EKG: Within normal limits HR: 72 bpm Contrast Medium: Bubble Study. 2D Measurements LV Diastolic Dimension: 4.5 cm LV Systolic Dimension: 3.2 cm LV Septum Diastolic: 0.8 cm LV PW Diastolic: 0.7 cm AO Root Dimension: 2.5 cm LA Dimension: 3.3 cm LA ESV (BP):28.9 ml LVOT Stroke Volume: 56.68 ml LA ESV Index: 17 ml/m2 Stroke Volume Index33.54 ml/m2 LVOT: 1.9 cm Cardiac Index:2.41 l/min/m2 Ascending Aorta:2.6 cm Doppler Measurements AV Peak Velocity: 128 cm/s MV Peak E-Wave: 84.4 cm/s AV Peak Gradient: 6.55 mmHg MV Peak A-Wave: 65.1 cm/s AV Mean Gradient: 4 mmHg MV E/A Ratio: 1.3 AV VTI:25.1 cm MV P1/2t: 51 msec LVOT Peak Velocity: 97.3 cm/s LVOT VTI20 cm MV Deceleration Time: 175 msec AV Area (Continuity):2.26 cm2 MV Area (PHT): 4.31 cm2 TR Velocity:205 cm/s TR Gradient:16.81 mmHg E' Septal Velocity: 9.36 cm/s E' Lateral Velocity: 15.2 cm/s E/Med E':[id number] E/Lat E':5.220560 Cardiac Anatomy Left Ventricle/Interventricular Septum The left ventricular size is normal. Left ventricular wall thickness is normal. The LV systolic function is normal . The left ventricular ejection fraction is 55-60 %. There are no regional wall motion abnormalities. Normal diastolic function. Left Atrium/Interatrial Septum The left atrium is normal in size. The atrial septum is mobile, but does not reach strict criteria for aneurysm. An agitated saline study (bubble study) was performed and was normal at rest and with Valsalva. There is no evidence of right to left shunting. Aortic Valve The aortic valve is trileaflet and normal in structure and function. There is no aortic stenosis or insufficiency. Mitral Valve The mitral valve appears normal . There is trace mitral regurgitation. Aorta The ascending aorta and aortic root are normal in size. Right Ventricle The right ventricle is normal in size and function. Right Atrium The right atrium is normal in size. Pulmonic Valve The pulmonic valve is normal in structure and function. There is trace pulmonic regurgitation. Tricuspid Valve The tricuspid valve appears normal . There is trace to mild tricuspid valve regurgitation. Pumonary Artery The pulmonary artery systolic pressure estimation is within normal limits. Venous Structures The inferior vena cava appears normal. Pericardium/Extracardiac There is no significant pericardial effusion. Summary The left ventricular size is normal. Left ventricular wall thickness is normal. The LV systolic function is normal . The left ventricular ejection fraction is 55-60 %. There are no regional wall motion abnormalities. Normal diastolic function. The right ventricle is normal in size and function. The left atrium is normal in size. The atrial septum is mobile, but does not reach strict criteria for aneurysm. An agitated saline study (bubble study) was performed and was normal at rest and with Valsalva. There is no evidence of right to left shunting. There are no significant valvular abnormalities. The pulmonary artery systolic pressure estimation is within normal limits. Comparison Comparison is made to the study of September 15, 2021. There is no significant change. Signature * Event Display: Echocardiogram - Complete Authored Date: [id number] Patient Care team information Care Team Personnel Name: Gavin Velez MD Position: [facility] Physician - Gastroenterology Member Role: Lifetime Consulting Physician Address: [address], [address] [facility] [place] [address]- [place] Telecom: Name: Kiana Cardona Position: Reference Physician Member Role: PCP Address: [address] [place] [address]- [place] Telecom: Name: Rhea Cortés Position: [facility] Associate Professional Member Role: Lifetime Consulting Provider Address: [address] [facility] [place], [place] [address] Telecom: Care Team Related Persons Name: VANDANA LEMUS Name: RIGOBERTO VICENTE Name: FRANCISCO JAVIER LYLE Insurance Providers Guarantor name: SHAR VICENTE Health Plan Information #: 1 Payer: [employer] NON BHP HMO Member Number: [id number] Policy Number: NA Group Number: [id number] Health Plan Information #: 2 Payer: [employer] NON BHP HMO Member Number: [id number] Policy Number: NA Group Number: NA
--- OUTSIDE RECORDS SUMMARY | 2024-08-03 08:41 | XMS_ITS | Continuity of Care Document ---
Author Organization [facility] Address [address] [address]- [facility] Name Relationship Address Phone FRANCISCO JAVIER LEMUS [...] Unknown Unavai lable Care Team Providers Care Forge Heater Name Role Phone Kiana Cardona Primary Care Physician ([facility])[phone] [place] [facility] [place] 08/[place]/24 [facility] [address] [address] Attending Physician: Rhea Cortés Admitting Physician: Rhea Cortés Referring Physician: Rhea Cortés Encounter Type: One Time OP Allergies, Adverse Reactions, Alerts No Known Medication Allergies Immunizations Given and Recorded Vaccine Date Status Refusal Reason SARS-CoV-2 (COVID-19) mRNA-1273 vaccine 02/14/21 R ecorded SARS-CoV-2 (COVID-19) mRNA-1273 vaccine 12/04/20 R ecorded influenza virus vaccine, inactivated 1 06/19/19 Gi chuck tetanus/diphtheria/pertussis, acel(Tdap) 10/21/16 Given 1Result Comment: [facility]:[id number] Medications Claritin 5 mg oral tablet, chewable 1 tablet = 5 mg, Daily, 0 Refills, Maintenance, 08/04/19 2:58:00 PM EST Start Date: 08/04/19 Status: Ordered Repeat number: 1 Flonase 50 mcg/inh nasal spray 1 sprays, Nares, Both, 2 times a day, # 16 Gm, 0 Refills, Maintenance, 05/26/18 11:16:10 AM EST, [place], [facility]/pharmacy #[id number], 1 sprays Nares, Both 2 times [...] Replace Required Details, Route to Pharmacy Electronically, [facility]/pharmacy #[id number], Partial fill upon patient request if the [...] 5:59:00 PM EST, Route to Pharmacy Electronically, [facility]/pharmacy #[id number], Partial fill upon patient request if the [...] 9:10:00 AM EST, Route to Pharmacy Electronically, [facility]/pharmacy #[id number], Partial fill upon patient request if [...] 1 Refills, Maintenance, 09/02/23 5:58:00 PM EST, [facility]/pharmacy #[id number], Partial fill upon patient request if [...] Refills, Maintenance, 09/02/23 5:58:00 PM EST, Tablet, [facility]/pharmacy #[id number], Partial fill upon patient request if [...] 5:59:00 PM EST, Route to Pharmacy Electronically, [facility]/pharmacy #[id number], Partial fill upon patient request if the [...] Unit: tablet Repeat number: 1 Vitamin D 54884 iu oral capsule 50,000 International_Units, By Mouth, [...] 10/21/16 Sex Female Sex Representation Female (finding) Cardiology * Event Display: Treadmill Standard Stress Test Authored Date: Please click on pdf link to open report Patient Care team information Care Team Personnel Name: Gavin Velez MD Position: [facility] Physician - Gastroenterology Member Role: Lifetime Consulting Physician Address: [address], [address] [facility] [place] [address]- [place] Telecom: Name: Kiana Cardona Position: Reference Physician Member Role: PCP Address: [address] [place] [address] [place] Telecom: Name: Rhea Cortés Position: [facility] Associate Professional Member Role: Lifetime Consulting Provider Address: [address] [place] [address]- [place] Telecom: Care Team Related Persons Name: VANDANA LEMUS Name: RIGOBERTO VICENTE Name: FRANCISCO JAVIER LYLE Insurance Providers Guarantor name: SHAR VICENTE Health Plan Information #: 1 Payer: [facility] FF NON BHP HMO Member Number: [id number] Policy Number: NA Group Number: [id number] Health Plan Information #: 2 Payer: [facility] [facility] FF NON BHP HMO Member Number: [id number] Policy Number: NA Group Number: NA
== END 2024-08-03 09:43 | disposition home or self-care (01) ==
PROVIDERS: PCP Nurse Practitioner Family; Visit Provider Nurse Practitioner Family
DX: F41.9 Anxiety disorder, unspecified (principal); Z71.89 Other specified counseling; F39 Unspecified mood [affective] disorder

== ENCOUNTER → 2024-08-03 08:24 | Outpatient (BNVA) | payer OTHER, SELFPAY | PROVIDERS: PCP Nurse Practitioner Family; Visit Provider Nurse Practitioner Family | DX: Z71.89 Other specified counseling (principal); F41.9 Anxiety disorder, unspecified; F39 Unspecified mood [affective] disorder | CPT/HCPCS: 96127 ==

== ENCOUNTER 2024-08-07 09:21 | Emergency (ER) | payer OTHER, SELFPAY ==
--- NOTE | ~2024-08-07 | XR_ITS ---
EXAMINATION: XR CHEST CLINICAL INFORMATION: cp COMPARISON: None available. TECHNIQUE: 2 views of the chest were obtained. FINDINGS: No significant abnormality is noted involving the heart, lungs, mediastinum, bony thorax or soft tissues. XR/XR chest 2V IMPRESSION: Unremarkable chest examination. Electronically signed by: Bhavesh Marin MD 08/07/2024 11:01 AM [facility]
--- NOTE | ~2024-08-07 | CT_ITS ---
CLINICAL HISTORY: ALMEIDA, vertigo, numbness CT of the head without contrast. Comparison 05/26/2023. Findings: There is a cochlear implant on the right causing artifact. No definite acute hemorrhage or infarct is seen. There is no hydrocephalus or mass effect. Impression: No definite acute intracranial abnormality. This document has been electronically signed by: Otis Alonzo MD on 08/07/2024 19:02:27
[2024-08-07 09:24] VITALS: BP 112/73; PULSE 105; O2SAT 100
--- NOTE | 2024-08-07 09:28 | ECG_ITS ---
Test Reason : cp Blood Pressure : */* mmHG Vent. Rate : 117 BPM Atrial Rate : 117 BPM P-R Int : 140 ms QRS Dur : 76 ms QT Int : 322 ms P-R-T Axes : 43 12 -5 degrees QTcB Int : 449 ms Sinus tachycardia Low voltage QRS Nonspecific T wave abnormality Abnormal ECG When compared with ECG of 18-Jul-2024 14:22, Nonspecific T wave abnormality now evident in Anterolateral leads Referred By: Amos Rhodes Electronically Signed By: CINDY MONTIEL
[2024-08-07 09:51] VITALS: BP 116/74; PULSE 118; RESP 18; TEMP 36.1; O2SAT 97; BMI 22.3
[2024-08-07 10:38] LABS: MANUAL DIFF FLAG NO
[2024-08-07 10:40] LABS: Basophils Percent Auto 0.3 % (0-2); Eosinophils Absolute Auto 0.1 X10*3/uL (0.0-0.4); Hematocrit 38.1 % (37.0-47.0); Hemoglobin 13.2 g/dl (12.0-16.0); Imm Gran Abs Auto 0.03 X10*3/uL (0.00-0.03); Imm Gran Pct Auto 0.3 % (0.0-0.4); Lymphocytes Absolute Auto 1.3 X10*3/uL (1.2-4.9); Lymphocytes Percent Auto 13.6 % (20-40); Mean Corpuscular HGB Conc 34.6 g/dl (31.0-35.0); Mean Corpuscular Volume 89.4 fL (80.0-98.0); Mean Platelet Volume 8.4 fL (9.4-12.3); Monocytes Absolute Auto 0.5 X10*3/uL (0.1-1.2); Monocytes Percent Auto 4.6 % (2-11); Neutrophils Absolute Auto 7.9 x10*3/uL (2.0-8.3); Neutrophils Percent Auto 80.2 % (45-73); Platelet Count 326 X10*3/uL (160-400); Red Blood Count 4.26 X10*6/uL (4.20-5.50); White Blood Count 9.9 X10*3/uL (4.8-10.8)
[2024-08-07 10:54] LABS: Alanine Aminotransferase 25 U/L (0-31); Albumin Level 4.4 g/dL (3.5-5.0); Alkaline Phosphatase 82 U/L (39-117); Anion Gap 13 (12-20); Aspartate Amino Transferase 26 U/L (5-31); Bilirubin Total 0.3 mg/dL (0.0-1.0); Blood Urea Nitrogen 17 mg/dL (9-16); Calcium 9.3 mg/dL (8.4-10.2); Carbon Dioxide 24 mmol/L (22-29); Chloride 105 mmol/L (96-108); Creatinine Clr Calc Pharmacy 74.8; Estimated Glomerular Filt Rate > 60; Glucose Random 129 mg/dL (60-115); Sodium 138 mmol/L (135-145); Total Protein 7.8 g/dL (6.5-8.0)
[2024-08-07 11:02] LABS: Troponin-I High Sensitivity < 2.7 ng/L (<3.5-17.0)
[2024-08-07 11:21] LABS: Influenza A PCR NEGATIVE (Negative); Influenza B PCR NEGATIVE (Negative); Resp Syncy Virus RNA Qual PCR NEGATIVE (Negative); SARS COV2 PCR INHOUSE NEGATIVE (Negative)
--- NOTE | 2024-08-07 17:17 | ED.CHESTPAIN ---
HPI - Chest Pain General Chief Complaint: Chest Pain Stated Complaint: CP,ANXIETY X2W PER EMS Time Seen by Provider: 08/07/24 09:23 Source: patient, RN notes reviewed and old records reviewed Mode of arrival: ambulatory History of Present Illness ED Provider: Emily Villanueva PA-C HPI narrative: 29-year-old female with a past medical history of borderline personality disorder, GERD, migraines, mood disorder, anxiety, ETOH abuse, presenting to the ED complaining of chest tightness, SOB, headache/brain fog, bilateral facial/body numbness/tingling x 2 months. Admits symptoms fluctuate in intensity however are always present. Patient has been seen and treated in our ED multiple times recently for similar symptoms with negative workup. Denies known injury, trauma, cough, vision loss, nausea/vomiting, travel, sick contacts. Admits to ETOH use, admits to history of withdrawal, denies withdrawal seizures or hallucinations, last drink at 23:00 last night. Related Data Home Medications ?Medication ?Instructions ?Recorded ?Confirmed loratadine 10 mg tablet 10 mg PO DAILY 08/03/20 07/20/24 omeprazole 20 mg capsule,delayed 20 mg PO DAILY 08/03/20 07/20/24 release cholecalciferol (vitamin D3) 50 50 mcg PO DAILY 04/22/22 07/20/24 mcg (2,000 unit) capsule magnesium 250 mg tablet 250 mg PO BEDTIME 04/22/22 07/20/24 Previous Rx's ?Medication ?Instructions ?Recorded clonazepam 0.5 mg tablet 0.5 mg PO BID PRN anxiety, panic 07/18/24 attacks #30 tabs hydroxyzine HCl 25 mg tablet 25 mg PO BEDTIME #90 tabs 07/18/24 gabapentin 300 mg capsule 300 mg PO Q8H #90 caps 07/28/24 cyanocobalamin (vitamin B-12) 500 500 mcg PO DAILY 30 days #30 tabs 08/02/24 mcg tablet Allergies Allergy/AdvReac Type Severity Reaction Status Date / Time cephalexin Allergy Severe Difficulty Verified 08/07/24 09:55 Breathing Penicillins Allergy Unknown Verified 08/07/24 09:55 prednisone AdvReac Anxiety Verified 08/07/24 09:55 Review of Systems Review of Systems: Yes all other systems are reviewed and are negative Constitutional: Constitutional: Reports as per HPI Neurologic: Denies Abnormal speech present and Denies Sensory deficit (Neuro) [facility] Past Medical History Attestation statement: The following information was validated with the patient. Source: old records reviewed Medical History Alcohol use disorder Epigastric abdominal pain ROMY (generalized anxiety disorder) Acute bronchitis Open wound of right knee Cellulitis of buttock, left Cochlear implant in place Encounter to establish care Panic attacks Severe anxiety Anxiety Surgical History No pertinent past surgical history Family History Family History Other Mental health disorder Social History Social History Household Members: Family Housing: House Do you presently have visiting nurse or other home services: No Alcohol intake: former Comment: currently not using alcohol as of Jul 2024 Patient Tobacco Use Status: Never used Tobacco e-Cigarette/Vaping Use: Never Used Second Hand Smoke Exposure: No Advance Directives: No Advance Directives Information Provided: No Do you have a plan to hurt others: No Plan service: No 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al status: employed 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 [employer] Cognitive needs: No Hearing needs: No Vision needs: No Physical Exam Vital Signs: Vital Signs: Last Vital Signs Temp 98.2 F 08/07/24 17:33 Pulse 106 H 08/07/24 17:33 Resp 14 08/07/24 17:33 BP 133/78 08/07/24 17:33 Pulse Ox 98 08/07/24 17:33 O2 Del Method Room Air 08/07/24 17:33 BMI result Body Mass Index 22.3 Const: General: cooperative, healthy appearing and no acute distress Orientation/consciousness: patient oriented x3 Limitations: no limitations HEENT: Head: Yes normal to inspection and Yes atraumatic Ears: hearing grossly normal bilaterally General nose exam: Normal external nose present Face and sinus: Yes normal facial exam Mouth: Normal oral and palatal mucosa present and no drooling Throat: Yes posterior oropharynx normal, Yes tonsils normal, Yes uvula midline, No uvula laterally displaced and No uvular edema Eyes: General: appearance normal, both eyes and all related structures Pupils: Equal, round and reactive pupils present EOM: EOMs intact bilaterally Neck: Neck: Yes normal visual inspection and Yes no meningeal signs Resp: Effort & Inspection: normal respiratory effort and no respiratory distress Auscultation: clear to auscultation bilaterally, no crackles and no wheezes Cardio: Rate: tachycardic Heart sounds: S1 normal heart sound present and S2 normal heart sound present GI: Inspection: Yes normal to inspection Palpation (GI): Soft to palpation, nontender, no guarding and not rigid Skin: Rashes: no rashes Wounds: no wounds Neuro: General: patient oriented x3, gait normal, tone normal, moves all extremities, no meningeal signs, no focal motor deficits and CN's II-XI intact bilaterally Cranial nerves: Yes CN's II-XII intact bilaterally, Yes Equal, round and reactive pupils present and Yes Bilaterally intact EOM present Cognition (Neuro): normal cognition Speech: No Abnormal speech present Gait exam (Neuro): Normal gait present Motor exam (neuro): 5/5 motor strength present throughout and Pronator motor function not present Sensory Exam: No Sensory deficit (Neuro) Coordination: [id number] test normal Romberg Test: Negative Extrem: General: Yes normal to inspection Course Course Course Narrative: -[id number]--labs reassuring. Troponin negative -viral testing negative XR chest 2V IMPRESSION: Unremarkable chest examination. -ED care transferred to NOAH Diaz pending CT and anticipated discharge Medications Administered Discontinued Medications Generic Name Dose Route Start Last Admin Trade Name Freq PRN Reason Stop Dose Admin Lorazepam 1 mg 08/07/24 17:43 08/07/24 18:39 Lorazepam 1 Mg Tablet PO 08/07/24 17:44 1 mg ONCE ONE Administration Meclizine HCl 25 mg 08/07/24 17:45 08/07/24 18:39 Meclizine Hcl 25 Mg Tablet PO 08/07/24 17:46 25 mg ONCE ONE Administration Medical Decision Making Medical Decision Making [facility] Narrative: 29-year-old female with a past medical history of borderline personality disorder, GERD, migraines, mood disorder, anxiety, ETOH abuse, presenting to the ED complaining of chest tightness, SOB, headache/brain fog, bilateral facial/body numbness/tingling x 2 months. On exam tachycardic, anxious, mildly tremulous, NAD/nontoxic appearing, no focal neuro deficits, ambulating with steady gait, no ataxia. Lungs CTA, abdomen soft/nontender. Concern for atypical ACS vs anxiety vs ETOH withdrawal/dependence vs metabolic abnormalities. Lower suspicion for subacute CVA/TIA, meningitis/encephalitis, dissection, PE, mass Plan: EKG, labs, viral testing, CXR, head CT, Ativan, meclizine, re-evaluate Please refer to course for remaining clinical decision making, interpretation of labs/imaging results, and discussions with consultants and/or family members. Differential Diagnosis Differential Diagnoses: The differential diagnosis associated with the presentation includes As above Admission/Observation Consideration of admission/observation: Escalation of care including admission/observation considered Lab Data MDM Lab Attestation statement: I reviewed the patient's lab results. 08/07/24 10:35 08/07/24 10:35 Labs: Lab Results 08/07/24 Range/Units 10:35 WBC 9.9 (4.8-10.8) X10*3/uL RBC 4.26 (4.20-5.50) X10*6/uL Hgb 13.2 (12.0-16.0) g/dl Hct 38.1 (37.0-47.0) % MCV 89.4 (80.0-98.0) fL MCH 31.0 (27.0-33.0) pg MCHC 34.6 (31.0-35.0) g/dl RDW 11.0 (11.0-16.0) % Plt Count 326 (160-400) X10*3/uL MPV 8.4 L (9.4-12.3) fL Immature Gran % (Auto) 0.3 (0.0-0.4) % Neut % (Auto) 80.2 H (45-73) % Lymph % (Auto) 13.6 L (20-40) % Tripp % (Auto) 4.6 (2-11) % Eos % (Auto) 1.0 (0-4) % Baso % (Auto) 0.3 (0-2) % Lymph # (Auto) 1.3 (1.2-4.9) X10*3/uL Tripp # (Auto) 0.5 (0.1-1.2) X10*3/uL Eos # (Auto) 0.1 (0.0-0.4) X10*3/uL Baso # (Auto) 0.0 (0.0-0.2) X10*3/uL Abs Immat Gran (auto) 0.03 (0.00-0.03) X10*3/uL Absolute Neuts (auto) 7.9 (2.0-8.3) x10*3/uL Absolute Nucleated RBC 0.000 (0.0-0.012) X10*3/uL Nucleated RBC % (auto) 0.0 (0.0-0.2) /100WBC Sodium 138 (135-145) mmol/L Potassium 4.0 D (3.3-5.1) mmol/L Chloride 105 (96-108) mmol/L Carbon Dioxide 24 (22-29) mmol/L Anion Gap 13 (12-20) BUN 17 H (9-16) mg/dL Creatinine 0.94 (0.5-1.4) mg/dL Estim Creat Clear Calc 74.8 Estimated GFR > 60 Random Glucose 129 H (60-115) mg/dL Calcium 9.3 (8.4-10.2) mg/dL Magnesium 2.0 (1.6-2.6) mg/dL Total Bilirubin 0.3 (0.0-1.0) mg/dL AST 26 (5-31) U/L ALT 25 (0-31) U/L Alkaline Phosphatase 82 (39-117) U/L Troponin I High Sens < 2.7 (<3.5-17.0) ng/L Total Protein 7.8 (6.5-8.0) g/dL Albumin 4.4 (3.5-5.0) g/dL Lipase 14 (8-78) U/L Influenza Type A (PCR) NEGATIVE (Negative) Influenza Type B (PCR) NEGATIVE (Negative) RSV RNA Qual (PCR) NEGATIVE (Negative) SARS-CoV-2 RNA (RT-PCR) NEGATIVE (Negative) Independent Interpretation I performed an independent interpretation of an: EKG (My interpretation EKG sinus tachycardia rate of 117. ME interval 140. QTC 449. Nonspecific T-wave abnormality when compared to prior. No STEMI), Plain X-Ray and CT Scan Radiology Impression Discussion of test interpretation with radiology: I have reviewed the radiologist's reading. External Record Review External record reviewed: Inpatient record, Office record, Outpatient record, Prior outpatient labs, Prior outpatient radiology, Primary care record and Outside ED record Tests considered The following testing was considered but not selected: As above Prescription Management I considered prescription management with: Other Chronic Conditions Patient?s care impacted by: Other Social Determinants Patient?s care significantly limited by Social Determinants of Health including: Inadequate housing, Low income, Alcoholism and drug addiction in family, Problems related to primary support group, Unemployment and Other Social Determinant of Health Discharge Plan Discharge Clinical Impression: Atypical chest pain, Numbness and tingling, Shortness of breath Patient Disposition: Still a Patient Instructions: Noncardiac Chest Pain (ED) Additional Instructions: Your blood work is reassuring You need to follow-up with your primary care doctor as well as Cardiology and Neurology If her symptoms persist or worsen, you are unable to eat or drink, have constant or worsening chest pain/shortness of breath return to the emergency department Please consider detox. Please avoid alcohol and drug use Alcohol use disorder You were seen in the Emergency Department today for treatment of alcohol use disorder.? You may have been given medications to help with your withdrawal symptoms.? Please do not drink alcohol with them. This is very dangerous and can cause respiratory depression or other adverse reactions depending on the medication. If you would like to cut down or stop your alcohol use please consider calling our outpatient Addiction Treatment office:? [facility] (M-F [id number] [address] [place] [address] ? You have also been given a list of treatment providers in the area that can assist as well.? If you experience seizures, vomiting blood, black stools, falls, severe headache, chest pain, fevers, trouble breathing, hallucinations or any other concerns you need to call 911 or seek immediate care. Please stay hydrated. Prescriptions: No Action gabapentin 300 mg capsule 300 mg PO Q8H Qty: 90 0RF cyanocobalamin (vitamin B-12) 500 mcg tablet 500 mcg PO DAILY 30 Days Qty: 30 6RF omeprazole 20 mg Capsule,Delayed Release(Dr/Ec) 20 mg PO DAILY loratadine 10 mg Tablet 10 mg PO DAILY magnesium 250 mg tablet 250 mg PO BEDTIME cholecalciferol (vitamin D3) 50 mcg (2,000 unit) capsule 50 mcg PO DAILY hydroxyzine HCl 25 mg tablet 25 mg PO BEDTIME Qty: 90 3RF clonazepam 0.5 mg tablet 0.5 mg PO BID PRN (Reason: anxiety, panic attacks) Qty: 30 0RF Referrals: [facility] [Provider Group] [facility] Neuro[facility] [Provider Group] Kiana Dias PA-C [Primary Care Provider] - 3 days Print Language: Kenyan
[2024-08-07 17:33] VITALS: BP 133/78; PULSE 106; RESP 14; TEMP 36.8; O2SAT 98
[2024-08-07 17:46] LABS: Lipase 14 U/L (8-78)
[2024-08-07] MEDS: LORazepam 1 MG TABLET PO (18:39)
[2024-08-07] MEDS: Meclizine HCl 25 MG TABLET PO (18:39)
[2024-08-07 18:50] VITALS: PULSE 100; TEMP 36.5; O2SAT 100
[2024-08-07 19:25] VITALS: BP 119/73
[2024-08-07 19:51] VITALS: BP 135/74; PULSE 72; RESP 18; TEMP 36.6; O2SAT 99
--- NOTE | 2024-08-07 19:53 | PC.NURSE ---
upon discharge, patient admits to painful urination and bilateral flank pain. UA ordered
[2024-08-07 20:12] LABS: Appearance Urine Cloudy; Color Urine Yellow; Glucose Urine UA Negative (Negative); Leukocyte Esterase Urine Negative (Negative); Nitrite Urine Negative (Negative); PH 5.5 (5.0-9.0); Specific Gravity - Urine 1.025 (1.005-1.025); Urine Blood Negative (Negative); Urine Ketones 80 mg/dL (Negative); Urine Protein Negative (Neg-Trace)
[2024-08-07 20:22] LABS: Bacteria Urine 4+ (None Seen); Hyaline Casts Urine 0-2 /LPF (0-2); RBC Urine 0-2 /HPF (0-2); UACC Culture Trigger YES
== END 2024-08-07 20:26 | disposition home or self-care (01) ==
PROVIDERS: Physician Assistant; Emergency Provider Emergency Medicine; PCP Physician Assistant
DX: R07.89 Other chest pain (principal); R20.0 Anesthesia of skin; R20.2 Paresthesia of skin; R06.02 Shortness of breath; Z03.818 Encounter for observation for suspected exposure to other biological agents ruled out; F10.10 Alcohol abuse, uncomplicated; Y90.9 Presence of alcohol in blood, level not specified; R05.3 Chronic cough; Z79.899 Other long term (current) drug therapy
CPT/HCPCS: 0241U; 36415; 70450; 71046; 80053; 81001; 83690; 83735; 84484; 85025; 87086; 93005; 99284

== ENCOUNTER → 2024-08-07 09:28 | Outpatient (BNV) | payer OTHER, SELFPAY | PROVIDERS: Emergency Provider Emergency Medicine; PCP Physician Assistant; Visit Provider Internal Medicine | DX: R94.31 Abnormal electrocardiogram [ECG] [EKG] (principal) | CPT/HCPCS: 93010 ==

== ENCOUNTER → 2024-08-07 10:10 | Outpatient (BNV) | payer OTHER, SELFPAY | PROVIDERS: Emergency Provider Emergency Medicine; Visit Provider Radiology Diagnostic Radiology | DX: R07.9 Chest pain, unspecified (principal); H81.399 Other peripheral vertigo, unspecified ear | CPT/HCPCS: 70450; 71046 ==

== ENCOUNTER 2024-08-23 15:59 | Outpatient (AMB) | payer OTHER, SELFPAY ==
--- NOTE | 2024-08-23 16:04 | A.OFFVIS_ITS ---
Vital Signs 08/23/24 16:05 Height 5 ft 4 in Weight 139 lb 12.369 oz BMI 24.0 BP 100/64 Blood Pressure Location Rt brachial Position Sitting Pulse 82 Pulse Source Pulse Oximeter Pulse Oximetry (%) 100 Oxygen Delivery Method Room Air Intake Visit Reasons: Consult acid reflux epigastric pain Intake Note: NEW PATIENT for initial consult for GERD mgmt. Prior hx of colo/egd? EGD 2017 [facility]. Lifetime 2. No colo. Chief Complaint; Worsening reflux, epigastric pain, SOB. Pt denies any additional concerns. Pt has been taking omeprazole for ~ 10 years and believes it might not be as effective as it was previously. 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 Patient was sent to us by PCP. Patient reports that she has been dealing with acid reflux for very long time. Recently her symptoms are getting worse. Patient reports epigastric pain and bloating. Patient also reports epigastric burning. Bowels very between loose and constipation. Patient is trying to stay away from certain food. Not sure if there is any particular triggers as it happens very often specially recently. No family history of inflammatory bowel disease. Family history of IBS. Patient denies any melena, hematochezia, unintentional weight loss or ribbon like stools. Patient denies any nausea or vomiting at this time. [facility] Medical History (Updated 08/26/24 @ 00:00 by Radha Dapeter) Abnormal findings on esophagogastroduodenoscopy (EGD) Alcohol use disorder Epigastric abdominal pain ROMY (generalized anxiety disorder) Acute bronchitis Open wound of right knee Cellulitis of buttock, left Cochlear implant in place Encounter to establish care Panic attacks Severe anxiety Anxiety Surgical History (Updated 08/23/24 @ 16:15 by [facility] History of esophagogastroduodenoscopy No pertinent past surgical history Family History Other Mental health disorder Social History Household Members: Family Housing: House Do you presently have visiting nurse or other home services: No Alcohol intake: former Comment: currently not using alcohol as of Jul 2024 Patient Tobacco Use Status: Never used Tobacco e-Cigarette/Vaping Use: Never Used Second Hand Smoke Exposure: No service: No 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al status: employed 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 [employer] Cognitive needs: No Hearing needs: No Vision needs: No Review of Systems Const Denies weight gain and Denies weight loss ENT Reports no additional complaints, Denies dysphagia and Denies odynophagia Card Reports no additional complaints Resp Reports no additional complaints GI Reports abdominal pain (Epigastric), Denies belching, Denies melena, Reports bloating, Denies change in bowel habits, Reports constipation, Denies dysphagia, Denies excessive flatus, Reports dyspepsia, Reports heartburn, Denies diarrhea, Reports loose stools, Reports nausea (Occasional in the morning), Denies samir nophagia and Denies vomiting Reports no additional complaints Musc Reports no additional complaints Neuro Reports no additional complaints Psych Reports no additional complaints Endo Reports no additional complaints Physical Exam Vital Signs: Last Vital Signs Pulse 82 08/23/24 16:05 BP 100/64 08/23/24 16:05 Pulse Ox 100 08/23/24 16:05 Oxygen Delivery Method Room Air 08/23/24 16:05 BMI result Body Mass Index 24.0 Const General: healthy appearing, no acute distress and well developed Nutritional Appearance: well nourished Orientation/consciousness: patient oriented x3 Resp Effort & Inspection: normal respiratory effort, able to speak in complete sentences, no tracheal deviation and symmetric chest movement Auscultation: clear to auscultation bilaterally Cardio Rate: regular rate GI Inspection: Yes normal to inspection and No distended Palpation (GI): Soft to palpation, not firm, nontender and No hepatosplenomegaly present Auscultation: normal bowel sounds General: Yes no CVA tenderness Back/Spine/Pelvis Back: no CVA tenderness Skin General skin exam: elasticity normal, turgor normal and dry skin Neuro General: patient oriented x3 Psych Appearance: grossly normal Mental Status: mental status grossly normal Assessment & Plan Assessment & Plan (1) GERD (gastroesophageal reflux disease): Code(s): K21.9 - Gastro-esophageal reflux disease without esophagitis Category: Medical Qualifiers: Esophagitis presence: without esophagitis Qualified Code(s): K21.9 - Gastro-esophageal reflux disease without esophagitis (2) Postprandial abdominal bloating: Code(s): R14.0 - Abdominal distension (gaseous) (3) Postprandial epigastric pain: Code(s): R10.13 - Epigastric pain (4) Postprandial diarrhea: Code(s): K52.9 - Noninfective gastroenteritis and colitis, unspecified (5) Constipation: Code(s): K59.00 - Constipation, unspecified Qualifiers: Constipation type: slow transit constipation Qualified Code(s): K59.01 - Slow transit constipation Plan Patient has been on omeprazole for a long time we will stop that and she will start taking Nexium in the morning and famotidine at bedtime. Will check vitamin B12, folate, D, transglutaminase CRP. Patient will return for breath test to check for H pylori. Will check thyroid study. Discussed with patient avoiding dietary triggers. Staying upright for minimum 3 hours after meals discussed with patient. We also discuss low FODMAP diet as she reports frequent bloating. We discuss that certain food cause fermentation process and if she does not move her bowels well she will have increase bloating and abdominal pain and burning. Patient will try to take fiber with pre and probiotics to see if she can regulate her bowels. If she will have trouble she will call our office to discuss. Patient will return to our office in 3 months, sooner on as needed basis. She is agreeable to this plan and verbalizes understanding of instructions. She was given the opportunity to ask questions and all questions answered. Thank you for allowing me to participate in her care Orders: Orders TSH reflex Free T4 08/23/24 K59.00 - Constipation, unspecified Vitamin B12 and Folate 08/23/24 R19.7 - Diarrhea, unspecified Vitamin D 25-OH (D2 and D3) 08/23/24 E55.9 - Vitamin D deficiency, unspecified FL upper GI w Ba Swallow 08/23/24 K21.9 - Gastro-esophageal reflux disease without esophagitis Transglutaminase IgA 08/23/24 R10.9 - Unspecified abdominal pain C Reactive Protein 08/23/24 K58.9 - Irritable bowel syndrome, unspecified H Pylori Breath Test 08/23/24 K21.9 - Gastro-esophageal reflux disease without esophagitis Medications: New esomeprazole magnesium (Nexium) 40 mg PO DAILY 90 caps 5RF K21.9 - Gastro- esophageal reflux disease without esophagitis famotidine (Pepcid) 20 mg PO BID 40 tabs 0RF K29.70 - Gastritis, unspecified, without bleeding Coding Level of Care Code New Pt Level 4 (42014) Diagnoses Gastroesophageal reflux disease without esophagitis K21.9 Esophagitis presence: without esophagitis Postprandial abdominal bloating R14.0 Postprandial epigastric pain R10.13 Postprandial diarrhea K52.9 Slow transit constipation K59.01 Constipation type: slow transit constipation Time Spent (min) 45 Comment 30 minutes spent with patient and additional 15 minutes spent reviewing her records
[2024-08-23 16:05] VITALS: BP 100/64; PULSE 82; O2SAT 100; BMI 24.0
--- OUTSIDE RECORDS SUMMARY | 2024-08-23 16:34 | XMS_ITS | Continuity of Care Document ---
Author Organization [facility] Address [address] [place] [address]- [facility] Name Relationship Address Phone FRANCISCO JAVIER LEMUS Personal Relationship Unknown Unavai lable LEMUS, VANDANA father Unknown Unavailable MAZIK, GINO M Personal Relationship Unknown Unav ailable JULES, RIGOBERTO Personal Relationship Unknown Unava ilable MAZIK, FRANCISCO JAVIER mother Unknown Unavailable JULES, LAURIE Personal Relationship Unknown Unavai lable MAZIK, GINO Personal Relationship Unknown Unavai lable JULES, RIGOBERTO spouse Unknown Unavailable JULES, CHRISTOPHER Personal Relationship Unknown Unavailable JULES, CHRISTOPHER Personal Relationship Unknown Unavailable JULES, CHRISTOPHER Personal Relationship Unknown Unavailable MAZIK, GINO Personal Relationship Unknown Unavai lable Care Team Providers Care Screen Tacker Name Role Phone Kiana Cardona Primary [id number] Date([facility] 08/09/24 - 08/16/[address] Attending Physician: Rhea Cortés Admitting Physician: Rhea Cortés Referring Physician: Rhea Cortés Encounter Type: One Time OP Allergies, Adverse Reactions, Alerts No Known Medication Allergies Immunizations Given and Recorded Vaccine Date Status Refusal Reason SARS-CoV-2 (COVID-19) mRNA-1273 vaccine 02/14/21 R ecorded SARS-CoV-2 (COVID-19) mRNA-1273 vaccine 12/04/20 R ecorded influenza virus vaccine, inactivated 1 06/19/19 Gi chuck tetanus/diphtheria/pertussis, acel(Tdap) 10/21/16 Given 1Result Comment: [facility]:[id number] Medications Claritin 5 mg oral tablet, chewable 1 tablet = 5 mg, Daily, 0 Refills, Maintenance, 08/04/19 2:58:00 PM EST Start Date: 08/04/19 Status: Ordered Repeat number: 1 Flonase 50 mcg/inh nasal spray 1 sprays, Nares, Both, 2 times a day, # 16 Gm, 0 Refills, Maintenance, 05/26/18 11:16:10 AM EST, [place], [facility]/pharmacy #[id number], 1 sprays Nares, Both 2 times [...] Replace Required Details, Route to Pharmacy Electronically, [facility]/pharmacy #[id number], Partial fill upon patient request if the [...] 5:59:00 PM EST, Route to Pharmacy Electronically, [facility]/pharmacy #[id number], Partial fill upon patient request if the [...] 9:10:00 AM EST, Route to Pharmacy Electronically, [facility]/pharmacy #[id number], Partial fill upon patient request if [...] 1 Refills, Maintenance, 09/02/23 5:58:00 PM EST, [facility]/pharmacy #[id number], Partial fill upon patient request if [...] Refills, Maintenance, 09/02/23 5:58:00 PM EST, Tablet, [facility]/pharmacy #[id number], Partial fill upon patient request if [...] 5:59:00 PM EST, Route to Pharmacy Electronically, [facility]/pharmacy #[id number], Partial fill upon patient request if the [...] Unit: tablet Repeat number: 1 Vitamin D 07527 iu oral capsule 50,000 International_Units, By Mouth, [...] Representation Female (finding) Cardiology * Event Display: Holter Monitor (48 hours) Authored Date: Please click on pdf link to open report Patient Care team information Care Team Personnel Name: Gavin Velez MD Position: [facility] Physician - Gastroenterology Member Role: Lifetime Consulting Physician Address: [address], [address] [facility] [place] [address]- [place] Telecom: Name: Kiana Cardona Position: Reference Physician Member Role: PCP Address: [address] [place] [address]- [place] Telecom: Name: Rhea Cortés Position: [facility] Associate Professional Member Role: Lifetime Consulting Provider Address: [address] [facility] [place] [address]- [place] Telecom: Care Team Related Persons Name: VANDANA LEMUS Name: RIGOBERTO VICENTE Name: FRANCISCO JAVIER LYLE Insurance Providers Guarantor name: SHAR VICENTE Health Plan Information #: 1 Payer: [facility] [employer] Member Number: [id number] Policy Number: NA Group Number: [id number] Health Plan Information #: 2 Payer: [facility] FF NON BHP HMO Member Number: [id number] Policy Number: NA Group Number: [id number]
== END 2024-08-23 16:42 | disposition home or self-care (01) ==
PROVIDERS: PCP Physician Assistant; Visit Provider Nurse Practitioner Family
DX: K21.9 Gastro-esophageal reflux disease without esophagitis (principal); R14.0 Abdominal distension (gaseous); R10.13 Epigastric pain; K52.9 Noninfective gastroenteritis and colitis, unspecified; K59.01 Slow transit constipation
CPT/HCPCS: 99204

== ENCOUNTER 2024-08-28 14:19 | Outpatient (REF) | payer OTHER, SELFPAY ==
--- NOTE | ~2024-08-28 | XR_ITS ---
EXAMINATION: XR CERVICAL SPINE CLINICAL INFORMATION: M54.9 - Dorsalgia, unspecified COMPARISON: None available. TECHNIQUE: 3 views of the cervical spine were obtained. FINDINGS: There are no prevertebral soft tissue or bony abnormalities demonstrated. No compression fractures or subluxations are identified. Alignment is maintained at the atlanto-axial articulation. The disc spaces are preserved. No endplate changes are seen. The prevertebral soft tissues are normal. XR/XR cervical spine 3V IMPRESSION: Normal cervical spine. Electronically signed by: Geovanny Linder MD 08/29/2024 10:50 AM LEWIS
--- NOTE | ~2024-08-28 | XR_ITS ---
EXAMINATION: XR LUMBOSACRAL SPINE CLINICAL INFORMATION: M54.9 - Dorsalgia, unspecified COMPARISON: None available. TECHNIQUE: 6 views of the lumbar spine, inclusive of bilateral oblique views, were obtained. FINDINGS: The vertebral bodies and posterior elements are normal. The disc spaces are preserved and the vertebral alignment is normal. Normal facet alignment without pars defect. Normal sacrum and SI joints. No soft tissue abnormalities. XR/XR lumbar spine 4V min IMPRESSION: Normal lumbar spine. Electronically signed by: Geovanny Linder MD 08/29/2024 10:56 AM [facility] HERMAN
--- NOTE | ~2024-08-28 | XR_ITS ---
EXAMINATION: XR THORACIC SPINE CLINICAL INFORMATION: M54.9 - Dorsalgia, unspecified COMPARISON: None available. TECHNIQUE: 3 views of the thoracic spine were obtained. FINDINGS: There is no scoliosis. There is normal kyphosis. No fracture, compression deformity, subluxation, or suspicious bone lesion. There is normal facet alignment. There is minimal disc degeneration present in the mid to upper thoracic spine. Imaged lung, soft tissue, and mediastinal structures appear normal. XR/XR thoracic spine 3V IMPRESSION: No acute findings thoracic spine. Minimal degenerative disc changes mid to upper region. Electronically signed by: Geovanny Linder MD 08/29/2024 10:43 AM [facility]
[2024-08-28 15:42] LABS: C Reactive Protein < 0.10 mg/dL (< or = 0.50)
[2024-08-28 15:58] LABS: TSH reflex Free T4 1.46 uIU/mL (0.32-4.0)
[2024-08-28 16:14] LABS: Folate 13.5 ng/mL (> or = 4.0); Vitamin B12 564 pg/mL (200-900)
[2024-08-29 22:24] LABS: Transglutaminase IgA <1.0 U/mL
[2024-08-31 20:09] LABS: Vitamin D 25-OH, D2 <4 ng/mL; Vitamin D 25-OH, D3 52 ng/mL; Vitamin D 25-OH, Total 52 ng/mL (30-100)
== END 2024-08-28 14:20 | disposition home or self-care (01) ==
LOC: HO.XRAY 14:19
PROVIDERS: Absent Provider Nurse Practitioner Family; PCP Physician Assistant; Visit Provider Nurse Practitioner Family
DX: M54.9 Dorsalgia, unspecified (principal); K58.9 Irritable bowel syndrome, unspecified; K59.00 Constipation, unspecified; R10.9 Unspecified abdominal pain; R19.7 Diarrhea, unspecified; E55.9 Vitamin D deficiency, unspecified
CPT/HCPCS: 36415; 72040; 72072; 72110; 82306; 82607; 82746; 84443; 86140; 86364

== ENCOUNTER → 2024-08-28 14:32 | Outpatient (BNV) | payer OTHER, SELFPAY | PROVIDERS: Absent Provider Nurse Practitioner Family; PCP Physician Assistant; Visit Provider Radiology Diagnostic Radiology | DX: M54.9 Dorsalgia, unspecified (principal); M51.34 Other intervertebral disc degeneration, thoracic region | CPT/HCPCS: 72040; 72072; 72110 ==

== ENCOUNTER 2024-09-08 09:55 | Outpatient (AMB) | payer OTHER, SELFPAY ==
--- NOTE | 2024-09-08 10:03 | AM.OFFVISNUR ---
Intake Visit Reasons: H Pylori Breath Test Allergies cephalexin Allergy (Severe, Verified 08/23/24 16:05) Difficulty Breathing Penicillins Allergy (Verified 08/23/24 16:05) Unknown prednisone Adverse Reaction (Verified 08/23/24 16:05) Anxiety Nursing Note Patient presents for collection of H Pylori breath test. Patient has been fasting for 1 hour (nothing to eat, drink, no chewing gum or smoking) has not taken any antacid medication for at least 2 weeks and has no allergies to artificial sweeteners.?? Assessment & Plan Assessment & Plan (1) GERD (gastroesophageal reflux disease): Code(s): K21.9 - Gastro-esophageal reflux disease without esophagitis Category: Medical Qualifiers: Esophagitis presence: without esophagitis Qualified Code(s): K21.9 - Gastro-esophageal reflux disease without esophagitis Plan Patient presents for collection of H Pylori breath test. Patient has been fasting for 1 hour (nothing to eat, drink, no chewing gum or smoking) has not taken any antacid medication for at least 2 weeks and has no allergies to artificial sweeteners.???This test checks for an overgrowth of bacteria in your stomach. We all have bacteria but some may have more than others. It is treatable. if the test comes back negative there is nothing else to do. If the test result is positive we will treat you with 2 antibiotics and a medication to decrease the acid in your stomach (PPI) for 2 weeks. Two weeks after you have completed the treatment we will retest you to make sure the overgrowth has resolved. Patient Instructions: Process for specimen collection and reason for testing was explained to the patient. Specimen collection. Patient instructed to take a deep breath and then exhale into the blue bag, filling it up as much as possible. Patient instructed to drink a mixture of water and the artificial sweetener with a straw. A 15 minute wait period was observed. Patient instructed to take a deep breath and then exhale into the pink bag, filling it up as much as possible.?? Coding Level of Care Code Established Pt Est Pt Level 1 (65723) Patient Type Established Medical Decision Making Straight Forward Diagnoses Gastroesophageal reflux disease without esophagitis K21.9 Esophagitis presence: without esophagitis
--- OUTSIDE RECORDS SUMMARY | 2024-09-08 10:54 | XMS_ITS | Continuity of Care Document ---
Author Organization [facility] Address [address] Name Relationship Address Phone FRANCISCO JAVIER LEMUS [...] Unknown Unavai lable Care Team Providers Care Pipe Line Repairer Name Role Phone Arun ZAMORA, Kiana B Primary Care Phys[id number] Date([facility]): 08/08/24 - 09/07/[address] Encounter Type: Triage Allergies, Adverse Reactions, Alerts No Known Medication Allergies Immunizations Given and Recorded Vaccine Date Status Refusal Reason SARS-CoV-2 (COVID-19) mRNA-1273 vaccine 02/14/21 R ecorded SARS-CoV-2 (COVID-19) mRNA-1273 vaccine 12/04/20 R ecorded influenza virus vaccine, inactivated 1 06/19/19 Gi chuck tetanus/diphtheria/pertussis, acel(Tdap) 10/21/16 Given 1Result Comment: [facility]:[id number] Medications Claritin 5 mg oral tablet, chewable 1 tablet = 5 mg, Daily, 0 Refills, Maintenance, 08/04/19 2:58:00 PM EST Start Date: 1/24/20 Status: Ordered Repeat number: 1 Flonase 50 mcg/inh nasal spray 1 sprays, Nares, Both, 2 times a day, # 16 Gm, 0 Refills, Maintenance, 05/26/18 11:16:10 AM EST, [place], [facility]/pharmacy #[id number], 1 sprays Nares, Both 2 [...] Replace Required Details, Route to Pharmacy Electronically, [facility]/pharmacy #[id number], Partial fill upon patient request if the [...] 5:59:00 PM EST, Route to Pharmacy Electronically, [facility]/pharmacy #[id number], Partial fill upon patient request if the [...] 9:10:00 AM EST, Route to Pharmacy Electronically, [facility]/pharmacy #[id number], Partial fill upon patient request [...] 1 Refills, Maintenance, 09/02/23 5:58:00 PM EST, [facility]/pharmacy #[id number], Partial fill upon patient request [...] Refills, Maintenance, 09/02/23 5:58:00 PM EST, Tablet, [facility]/pharmacy #[id number], Partial fill upon patient request [...] 5:59:00 PM EST, Route to Pharmacy Electronically, [facility]/pharmacy #[id number], Partial fill upon patient request if the [...] Unit: tablet Repeat number: 1 Vitamin D 92919 iu oral capsule 50,000 International_Units, By Mouth, [...] 10/21/16 Sex Female Sex Representation Female (finding) Patient Care team information Care Team Personnel Name: Gavin Velez MD Position: [facility] Physician - Gastroenterology Member Role: Lifetime Consulting Physician Address: [address], [address] [facility] [place] [address]- [place] Telecom: Name: Kiana Cardona Position: Reference Physician Member Role: PCP Address: [address] [place] [address]- [place] Telecom: Name: Rhea Cortés Position: [facility] Associate Professional Member Role: Lifetime Consulting Provider Address: [address] [facility] [address]- [place] Telecom: Care Team Related Persons Name: VANDANA LEMUS Name: RIGOBERTO VICENTE Name: FRANCISCO JAVIER LYLE Insurance Providers Guarantor name: SHAR VICENTE Health Plan Information #: 1 Payer: [facility] NON P HMO Member Number: NA Policy Number: NA Group Number: NA
--- OUTSIDE RECORDS SUMMARY | 2024-09-08 10:54 | XMS_ITS | Continuity of Care Document ---
Author Organization [place] - [facility], [facility] Address [address] [place] [address] Care Team Providers Care Transportation Sales Consultant Name Role Phone SALEEM CAPUTO Primary Care Provider [phone] Assessment Encounter Date Assessment Date Assessment LastModified by Organization Details LastModified Time 09/07/2024 09/07/2024 The patient's history, physical exam and audiometric findings continue to be consistent with vestibular migraine (migraine associated dizziness). I do not think that any of her symptoms have anything to do with her cochlear implant whatsoever. Today I spoke with the patient and her mother at length. We discussed the pathophysiology of migraine and migraine associated phenomena such as dizziness, cognitive changes and visual aura. We discussed how the patient's balance disturbance symptoms are likely mediated by a central processing abnormality rather than an isolated inner ear abnormality. I gave the patient a significant amount of literature to review at home regarding how there are many environmental and dietary triggers that can lead to not only migraine headaches but balance disturbance symptoms as well. We spent a lot of time discussing the importance of following a migraine diet. We have offered the patient a copy of the Heal Your Headache book to read at home, which gives a snhb-sy-gwwg discussion on what causes migraine and how to make the necessary lifestyle and dietary changes to significantly reduce or eliminate migraine symptoms. I have also recommended the use of dietary supplements magnesium, vitamin B2 and feverfew which have been shown to help control migrainous phenomena. We discussed dosage and schedule for these supplements. We discussed alternative of using Migranol, which contains a combination of magnesium, vitamin B2, and feverfew. Patient will continue to work with her neurologist with regards to pharmacologic therapy for migraine and I am encouraged that she will be starting Emgality which should help. Follow up: As needed [email or web address] Not available 09/07/2024 10:35:42 Plan of Treatment Reminders Order Date Submit Date Provider Last Modified By Organization Details Last Modified Time Details Appointments None record ed. Lab None record ed. Referral None record ed. Procedures None record ed. Surgeries None record ed. Imaging None record ed. Medication Orders None record ed. Patient TargetsNo targets recorded. Patient InstructionsNo instructions recorded. Reason for Referral None Reported. Results Created Date Observation Date Name Description Value Unit Range Abnormal Flag Note LastModifiedBy Organization Detail LastModifiedTime 09/07/19 25 11/21/2023 audio gram No observ ation record ed. [email or web address] Not Available 08/13 10:38:37 Result Notes None recorded. Problems Name Problem SNOMED Code Status Onset Date Resolution Date Notes Provider Name and Address Organization Details Recorded Time Sensorine ural hearing loss of bilateral ears 695705947 Active 2017 Sensorineu ral hearing loss, bilateral; Note: Date Diagnosed: 02/08/2018 2:56 PM (H90.3) Not Available [facility] 4 02:41:27 Refractor y migraine 655015587 Active 2017 Other migraine, intractabl e, without status migrainosu s; Note: Date Diagnosed: 02/08/2018 3:04 PM (G43.819) Not Available [facility] 4 02:41:24 Chronic pharyngit is 618785 Active 2016 Chronic sore throat; Note: Date Diagnosed: 08/18/2016 12:20 PM (J31.2) Not Available [facility] 4 02:41:31 Dizziness and giddiness 951563784 Active 2017 Dizziness and giddiness; Note: Date Diagnosed: 02/08/2018 3:04 PM (R42) Not Available [facility] 4 02:41:28 Neurologi saskia symptom 798416169 Active 2020 Other symptoms and signs involving the nervous system; Note: Date Diagnosed: 12/19/2020 4:56 PM (R29.818) Not Available [facility] 4 02:41:25 Generaliz ed anxiety disorder 63586268 Active 2020 Generalize d anxiety disorder; Note: Date Diagnosed: 08/08/2020 9:48 AM (F41.1) Not Available [facility] 4 02:41:23 M? ? ?ni? ? ?re's disease 49134313 Active 2017 Meniere's disease, right ear; Note: Date Diagnosed: 03/03/2018 5:11 PM (H81.01) Not Available [facility] 4 02:41:29 Gastroeso phageal reflux disease without esophagit is 838717093 Active 2016 Gastro-eso phageal reflux disease without esophagiti s; Note: Date Diagnosed: 08/18/2016 12:25 PM (K21.9) Not Available [facility] 4 02:41:23 Vertigo of central origin 81769426 Active 2023 Vertigo of central origin; Note: Date Diagnosed: 08/31/2023 2:43 PM (H81.4) Not Available [facility] 4 02:41:28 Problem Notes None recorded. Medical Equipment None Reported. Medications Name Sig Start Date Stop Date Status Note LastModified by Organization Details LastModified Time buspirone 5 mg tablet TAKE 1 TABLET BY MOUTH TWICE A DAY active Not Available Not Available No t Available silver sulfadiaz ine 1 % topical cream APPLY 1.5 MM THICKNES S TO AFFECTED AREA TWICE A DAY 09/07 completed Not Available Not Available Not Available azithromy brittany 250 mg tablet TAKE 2 TABLETS BY MOUTH TODAY, THEN TAKE 1 TABLET DAILY FOR 4 DAYS DIRECTED 09/07 completed Not Available Not Available Not Available fluconazo le 150 mg tablet TAKE ONE TABLET BY MOUTH ONCE FOR YEAST INFECTIO N 09/07 completed Not Available Not Available Not Available Medrol (Ion) 4 mg tablets in a dose pack 09/07 completed Medicati on ID: [id number] D uration Value: 6 Brand Name: Medrol (Ion) Se nd Method: E-Prescr ibed Sub s Allowed: subs OK Speci al Instruct ion: Take 1 pack as directed Medicat ionGener icName: Medrol (Ion) Not Available Not Available Not Available prednison e 20 mg tablet 03/03 completed Medicati on ID: [id number] P livribritni d By Name: Jude Pacheco nd Name: predniso ne Send Method: E-Prescr ibed Sub s Allowed: subs OK Speci al Instruct ion: Take 3 tabs daily for 3 days then 2 tabs daily for 3 days then 1 tabs daily for 3 days then stop Med icationG enericNa me: predniso ne Not Available Not Available Not Available clonazepa m 0.5 mg tablet TAKE 1 TABLET ORALLY 2 TIMES A DAY NEEDED FOR ANXIETY, PANIC ATTACKS active Not Available Not Available No t Available omeprazol e 40 mg capsule,d elayed release 02/08 completed Medicati on ID: [id number] D uration Value: 30 Reason: () Brand Name: omeprazo le Send Method: E-Prescr ibed Sub s Allowed: subs OK Speci al Instruct ion: TAKE 1 CAPSULE EVERY DAY Medi cationGe nericNam e: omeprazo le Not Available Not Available Not Available alprazola m 0.25 mg tablet 09/07 completed Medicati on ID: [id number] D uration Value: 10 Brand Name: alprazol am Send Method: E-Prescr ibed Sub s Allowed: subs OK Speci al Instruct ion: TAKE ONE TABLET BY MOUTH EVERY DAY NEEDED M edicatio nGeneric Name: alprazol am Not Available Not Available Not Available famotidin e 20 mg tablet TAKE 1 TABLET BY MOUTH TWICE A DAY active Not Available Not Available No t Available lorazepam 0.5 mg tablet 09/07 completed Medicati on ID: [id number] B rand Name: lorazepa m Send Method: E-Prescr ibed Sub s Allowed: subs OK Medic ationGen ericName : lorazepa m Not Available Not Available Not Available cyanocoba iman (vit B-12) 500 mcg tablet TAKE 1 TABLET BY MOUTH EVERY DAY active Not Available Not Available No t Available cephalexi n 500 mg capsule TAKE 1 CAPSULE BY MOUTH EVERY 12 HOURS FOR 7 DAYS 09/07 completed Not Available Not Available Not Available esomepraz ole magnesium 40 mg capsule,d elayed release TAKE 1 CAPSULE BY MOUTH EVERY DAY active Not Available Not Available No t Available gabapenti n 300 mg capsule TAKE 1 CAPSULE BY MOUTH EVERY 8 HOURS active Not Available Not Available No t Available sertralin e 25 mg tablet TAKE 1 TABLET BY MOUTH EVERY DAY IN THE MORNING active Not Available Not Available No t Available hydroxyzi ne HCl 25 mg tablet TAKE 1 TABLET BY MOUTH AT BEDTIME active Not Available Not Available No t Available mupirocin 2 % topical ointment APPLY TOPICALL Y TWICE A DAY FOR 10 DAYS 09/07 completed Not Available Not Available Not Available gabapenti n 100 mg capsule TAKE 1 CAPSULE BY MOUTH 3 TIMES A DAY active Not Available Not Available No t Available metoprolo l succinate ER 25 mg tablet,ex tended release 24 hr TAKE 1/2 TABLET BY MOUTH DAILY active Not Available Not Available No t Available Dyazide 37.5 mg-25 mg capsule 1 capsule by mouth 08/08 completed Medicati on ID: [id number] P lavon sharma By Name: Jude Pacheco nd Name: Dyazide Send Method: E-Prescr ibed Sub s Allowed: subs OK Medic ationGen ericName : Dyazide Not Available Not Available Not Available albuterol sulfate HFA 90 mcg/actua tion aerosol inhaler active Not Available Not Available Not Available clotrimaz ole 1 % topical cream 1 APPL TOPICALL Y 2 TIMES A DAY APPLY TO HANDS UNTIL THE SKIN IS NORMAL 09/07 completed Not Available Not Available Not Available sertralin e 50 mg tablet TAKE 1 TABLET BY MOUTH EVERY DAY 09/07 completed Not Available Not Available Not Available doxycycli ne hyclate 100 mg tablet TAKE 1 TABLET BY MOUTH 2 TIMES PER DAY FOR 10 DAYS. LIMIT SUN EXPOSURE WHILE ON THIS ANTIBIOT IC 09/07 completed Not Available Not Available Not Available Xanax 02/08 completed Medicati on ID: [id number] Laura flaherty: () Brand Name: xanax Se nd Method: E-Prescr ibed Sub s Allowed: subs OK Medic ationGen ericName : xanax Not Available Not Available Not Available Nexium 24HR 20 mg tablet,de layed release 09/07 completed Medicati on ID: [id number] B rand Name: Nexium 24HR Sen d Method: E-Prescr ibed Sub s Allowed: subs OK Medic ationGen ericName : Nexium 24HR Not Available Not Available Not Available Emgality Pen 120 mg/mL subcutane ous pen injector active Not Available Not Available Not Available Vitals None Recorded Social History None recorded. Functional Status None recorded. Mental Status None recorded. Family History Nothing Reported. Medical History Condition Response Anxiety Y GERD/Reflux Y Gynecological HistoryNo gynecological history recorded. Obstetrics History GPAL:G 0 P 0 0 0 0 Past Encounters Encounter ID Performer Location Encounter Start Date Encounter Closed Date Diagnosis/Indication Diagnosis SNOMED-CT Code Diagnosis ICD10 Code Diagnosis Note [id number] DOMENIC TOWNSEND MD [facility] [address] [address] 09/07/2024 09:48:51 09/07/2024 10:36:51 Cochlear prosthesis in situ [id number] Z96.21 Patient is likely due to get a new processor. This should be covered by her insurance as her current processor has been deemed obsolete and is no longer repairable . I have asked patient's mother to contact [employer] to initiate the process for getting a new processor. In the meantime they will follow-up with the [facility] for mapping and device troublesho oting. Refractory migraine [id number] 50627 G43.819 Vertigo of central origin 37402958 H81.4 Neurological symptom [phone] [id number] R29.818 Health Concerns Section Related Observation LastModified by Organization Detai ls LastModified Time None Recorded Concern Status LastModified by Organization Details LastModified Time None Recorded Payers Encounter Date Sequence Insurance Name Policy Number Policy Dum[place] Covered Member ID Dumont Member ID Guarantor Name 09/07/2024 1 [facility] [id number] Lashay Martel [id number] Lashay Martel Notes Date Note Type Note Provider Name and Address Organization Details Recorded Time 09/07/2024 text/html 29-year-old david castellon who had right sided cochlear implant placed in 2000 when she was 6 years old. Patient has had chronic issues with headaches, brain fog, brain zaps and intermittent dizziness over the years. She has also had intermittent BPPV. We have discussed how her dizziness and head pain symptoms are likely related to migraine, vestibular migraine, and possibly M? ? ?ni? ? ?re's disease. She is working with a neurologist for her headaches, and will be starting Emgality shots tomorrow. At her last visit I provided her with information regarding identification and limitation of migraine triggers, and recommended she continue to work with her neurologist in this regard.. She did not really read the information I provided her.Patient is working with the [facility] for mapping and device maintenance. Her current processor is about 8 years old and is starting to fail. They just needed to get a new coil because it broke. She comes in today accompanied by her mother DOMENIC TOWNSEND MD [address] [place] [address], [place], [address], [place] - [facility] 09/07/2024 10:37:12 OBGyn Episode No OBEpisode recorded.
--- OUTSIDE RECORDS SUMMARY | 2024-09-08 10:54 | XMS_ITS | Continuity of Care Document ---
Author Organization [facility] Address [address] [address]- Care Team Providers Care Block Cableman Name Role Phone Kiana Cardona Primary Care Physician [phone] Encounter [facility] Date(s): 08/21/24 - 08/28/[address] [address]- Encounter Diagnosis Palpitations(Discharge Diagnosis) - 08/25/24 Atypical chest pain(Discharge Diagnosis) - 08/25/24 Attending Physician: Rhea Cortés Admitting Physician: Rhea Cortés Referring Physician: Kiana Cardona Encounter Type: Office Visit Allergies, Adverse Reactions, Alerts No Known Medication Allergies Immunizations Given and Recorded Vaccine Date Status Refusal Reason SARS-CoV-2 (COVID-19) mRNA-1273 vaccine 02/14/21 R ecorded SARS-CoV-2 (COVID-19) mRNA-1273 vaccine 12/04/20 R ecorded influenza virus vaccine, inactivated 1 06/19/19 Gi chuck tetanus/diphtheria/pertussis, acel(Tdap) 10/21/16 Given 1Result Comment: [facility]:[id number] Medications Claritin 5 mg oral tablet, chewable 1 tablet = 5 mg, Daily, 0 Refills, Maintenance, 08/04/19 2:58:00 PM EST Start Date: 08/04/19 Status: Ordered Repeat number: 1 Flonase 50 mcg/inh nasal spray 1 sprays, Nares, Both, 2 times a day, # 16 Gm, 0 Refills, Maintenance, 05/26/18 11:16:10 AM EST, [place], [facility]/pharmacy #[id number], 1 sprays Nares, Both 2 times [...] Replace Required Details, Route to Pharmacy Electronically, [facility]/pharmacy #[id number], Partial fill upon patient request if the [...] 5:59:00 PM EST, Route to Pharmacy Electronically, [facility]/pharmacy #[id number], Partial fill upon patient request if the [...] 9:10:00 AM EST, Route to Pharmacy Electronically, [facility]/pharmacy #[id number], Partial fill upon patient request if [...] 1 Refills, Maintenance, 09/02/23 5:58:00 PM EST, [id number], Partial fill upon patient request if [...] Refills, Maintenance, 09/02/23 5:58:00 PM EST, [place], [id number], Partial fill upon patient request if [...] 5:59:00 PM EST, Route to Pharmacy Electronically, [facility]/pharmacy #[id number], Partial fill upon patient request if [...] Unit: tablet Repeat number: 1 Vitamin D 92653 iu oral capsule 50,000 International_Units, By Mouth, [...] Active Severe somatic symptom disorder Confirmed Active Diagnosis Diagnosis Type Effective Dates Health Status Clinical Service Informant Palpitations Discharge Diagnosis 08/25/24 Atypical chest pain Discharge Diagnosis 08/25/24 Vital Signs Most recent to oldest [Reference Range]: 1 Height 167 cm (08/21/24 9:10 AM) Weight 61.3 kg (08/21/24 9:10 AM) Oxygen Saturation [94-100 %] 100 % (08/21/24 9:10 AM) Pulse Rate [55-90 bpm] 70 bpm (08/21/24 9:10 AM) Body Mass Index [18.5-24.99 kg/m2] 21.98 kg/m2 (08/21/24 9:10 AM) Blood Pressure [90-138/55-84 mm Hg] 119/ 77mm Hg (08/21/24 9:10 AM) Mode of Delivery (Oxygen) Room air (08/21/24 9:10 AM) Blood pressure sites Arm, left (08/21/24 9:10 AM) Weight Obtained Via Standing scale (08/21/24 9:10 AM) Social History Social History Type Response Smoking Status Never smoker; Tobacc o user in household: No entered on: 10/21/16 Sex Female Sex Representation Female (finding) Cardiology Outpatient Note * Gasper ZAMORA, Rhea Ambriz: PERFORM Event Display: Cardiology Note Office Authored Date: [id number] Patient: ??SHAR VICENTE ? Age:??29 Years?Sex:??Female?:??1995?? Patient Hx Provider Clinical Summary Shar is a 29 y.o. female with months of intermittent ATCP and tachycardia both at rest and with ambulation. Some radiating??back pain, facial parasthesias??and bilateral upper extremity transient immobility.?Thorough workup for similar symptoms in 2021??and again over these past few months??with reassuring findings. ??Unfortunately she did not tolerate??the ZIO monitor because she had a reaction to the adhesives but we did get a 48-hour??Holter monitor??which showed no sustained arrhythmias. ?? Plan: 1. ATCP/tachycardia: Exercise treadmill test, echocardiogram, and 48-hour Holter monitor??are reassuring. ??Added low dose Metoprolol 12.5 mg for now, not in future if considering .?We talked briefly about an implanted loop recorder, but??quite honestly given Shar's??anxiety level??wewould likely be inundated with??patient activated events??and unable to??keep up with??the data.?I have recommended that she purchase a Kardia??mobile device??to document any??arrhythmias??that she may be experiencing,??she can upload the tracings??to her patient portal??which I would be happy to review. 2. Mobile atrial septum: limited echo w/ bubble study??showed no [id number] shunting. 3. Anxiety: work with PCP ?? At this point I explained that we will??see her here??in cardiology on an as needed basis??and thatthis??been no documented need for routine follow-ups. Thank you for allowing us to participate in her care. Rhea Jackman PA-C History of Present Illness/Interval History I am seeing Shar??here in cardiology in follow-up to her recent 48-hour Holter monitor and??tilt table testing. ?? SHAQ 08/02/24 IMPRESSIONNegative tilt table test for neurocardiogenic syncope. The patient did not exhibit a cardioinhibitory or vasodepressor response after 30 minutes of an upright tilt.? 48 hour Holter 08/09/24: 133072 QRS complexes 2 Ventricular ectopics which represent <1 % of total QRS complexes 0 Supraventricular ectopics which represent <1 % of total QRS complexes 0 Paced QRS complexes which represent <1 % of total QRS complexes VENTRICULARS (V, F, E, I) SUPRAVENTRICULARS (S, J, A) 0 Isolated 0 Isolated 0 Bigeminal Cycles 0 Couplets 1 Couplets 0 Runs 0 Runs 0 Beats in Runs 0 Beats in Runs Beats LONGEST at BPM at Beats LONGEST at BPM at Beats FASTEST at BPM at Beats FASTEST at BPM at HEART RATES 58 MIN at 07:14:00 11-Aug-2024 81 AVG 122 MAX at 16:31:00 10-Aug-2024 LONGEST RR 2.000 sec at 09:19:46 10-Aug-2024 INTERPRETATION Predominant rhythm is normal sinus rhythm. No supraventricular ectopy. Rare ventricular ectopy. No runs of VT or SVT No long pause or profound bradycardia Symptoms correlate to sinus rhythm without ectopy Confirmed by UMER COLUNGA ([id number]) on 08/14/2024 2:55:21 PM ?? Fortunately after many attempts to reassure??Cherelle??is still quite anxious??about her symptoms??and is concerned??that these episodes may lead to a heart attack.?? I again reassured her that her??stress test, Holter,??tilt table, and echocardiogram with bubble study??are all reassuring??and not i ndicating any cardiac concerns.?? We talked about??her issues with anxiety??which certainly could be the??reason for??all that she is feeling. I have encouraged her to work with??her PCP??regarding her emotional??issues and??stress. ?? Physical Exam Vitals & Measurements HR:??70??(Peripheral)?? BP:??119/77?? SpO2:??100%?? HT:??167??cm?? WT:??61.3??kg?? BMI:??21.98?? Weight lb/oz: 135 lb 2 oz Vitals reviewed and stable Assessment/Plan 1.??Palpitations 2.??Atypical chest pain See provider clinical summary above Medical Decision Making LOW - based on 2 or more self-limited or minor problems, 1 stable chronic illness or 1 acute, uncomplicated illness or injury; ext note / test / order = 2, OR requiring an independent historian(s); and/or Low risk of morbidity from add'l management Allergies No Known Medication Allergies Home Medications Claritin 5 mg oral tablet, chewable, 5 mg= 1 tablet, Daily Flonase 50 mcg/inh nasal spray, 1 sprays, Nares, Both, 2 times a day gabapentin 300 mg oral capsule, See Instructions, 1 refills HUM Nutristion daily clense ibuprofen 800 mg oral tablet, 800 mg= 1 tablet, By Mouth, 3 times a day, PRN Magnesium Carbonate, 54 mg, By Mouth, Daily metoprolol 25 mg oral tablet, extended release, 12.5 mg= 0.5 tablet, By Mouth, Daily, 11 refills miSOPROStol 200 mcg oral tablet, See Instructions, 1 refills Multivitamin ondansetron 4 mg oral tablet, disintegrating, 4 mg= 1 tablet, By Mouth, Every 8 hours, PRN oxyCODONE 5 mg oral tablet, 5 mg= 1 tablet, By Mouth, Every 6 hours, PRN Multivitamins, By Mouth, Daily PriLOSEC OTC 20 mg oral delayed release tablet, 20 mg= 1 tablet, By Mouth, 2 times a day Vitamin D 43344 iu oral capsule, 33364 International_Units, By Mouth, Daily Zoloft 25 mg oral tablet, 25 mg= 1 tablet, By Mouth, Daily Lab Results Cardiology Labs Blood Count & Diff?? WBC: 5.8 k/mm3 (09/06/23) RBC:??3.93 m/mm3??Low (09/06/23) Hgb: 12.1 Gm/dL (09/06/23) Hct:??34.9 %??Low (09/06/23) MCV: 88.8 femtoliters (09/06/23) Platelet Count: 369 k/mm3 (09/06/23) Diagnostic Impression ECG ECG 12-Lead ?? 08:30:12 Please click on pdf link to open report ?? Signed By: Olga Larkin MD ?? ECG 12-Lead ?? 08:30:12 Ventricular Rate: 93 BPM Atrial Rate: 93 BPM P-R Interval: 134 ms QRS Duration: 72 ms Q-T Interval: 374 ms QTC Calculation(Bazett): 465 ms P Cossayuna: 29 degrees R Cossayuna: 34 degrees T Cossayuna: 6 degrees Normal sinus rhythm Normal ECG When compared with ECG of 02-Sep-2021 10:54, Nonspecific T wave abnormality no longer evident in Anterior leads Confirmed ?? Signed By: Olga Larkin MD Stress Test No qualifying data available. Echo Echocardiogram - Complete ?? 08:07:59 Summary The left ventricular size is normal. [...] no evidence of right to left shunting. ?? There are no significant valvular abnormalities. ?? The pulmonary artery systolic pressure estimation is within normal limits. ?? Comparison Comparison is made to the study of September 15, 2021. There is no significant change. ?? Signature ?? Signed By: Osbaldo Watts MD Problem List/Past Medical History Ongoing Alcoholism Anxiety about health Anxiety and depression Benzodiazepine dependence Borderline personality disorder BPPV (benign paroxysmal positional vertigo) Cochlear implant in place -right Congenital sensorineural hearing loss Migraine aura without headache Panic attacks Severe somatic symptom disorder Procedure/Surgical History Esophagogastroduodenoscopy and biopsy: 10/26/16 Cochlear implant Social History Alcohol Use: Current. Frequency: 1-2 times per month. Alcohol use in household: No. Employment/School Status: Employed. Other: [employer]. Exercise Regular exercise: No. Home/Environment Living situation: Home/Independent. Lives with: Spouse. Other: 2 yrs ago. Nutrition/Health Diet: Regular. Substance Abuse Use: Never. Substance abuse in household: No. Tobacco Never smoker, Tobacco user in household: No. Family History Mother: Anxiety Father: Hypertension Brother: Asthma Note * Renay Gooden: PERFORM Event Display: Patient Education/Instruction Authored Date: [id number] Ambulatory Adult Visit Summary [facility] [address] [place] [address] Name: SHAR VICENTE : 1995?? Visit: 08/21/2024 09:00?? Ambulatory Visit Instructions ?? Your Care Team Primary Care Provider Kiana Cardona? This Visit Provider Rhea Cortés Vitals Signs Pulse Rate: 70 bpm Height: 167 cm Systolic Blood Pressure: 119 mm Hg Weight: 61.3 kg Diastolic Blood Pressure: 77 mm Hg Body Mass Index: 21.98 kg/m2 Oxygen Saturation: 100 % Body surface area: 1.69 Medications The list below reflects the information in our records and provided by you today along with any changes made during this visit. Please continue your medications until treatment is completed or stopped by your provider. If this is different from the information you have or there are other questions,please contact the prescribing provider. What How Much When Instructions Unchanged Ergocalciferol (Vitamin D 53625 iu oral capsule) 50,000 International Unit Oral Daily Unchanged Fluticasone Nasal (Flonase 50 mcg/ inh nasal spray) 1 spray(s) Nares, Both Twice a day Unchanged Gabapentin (gabapentin 300 mg oral capsule) See instructions Take one capsule (300mg) in a.m., two capsules (600mg) at noon, and two capsules at night. for 7 days. ??Then take one capsules in the a.m. (300mg), one capsule )300mg) at noon, and two caspules (600mg) at night for 7 days. ??Then take one capsule (300mg) three times daily. ?? Unchanged Ibuprofen (ibuprofen 800 mg oral tablet) 1 tab(s) Oral 3 times a day as needed for for pain Unchanged Loratadine (Claritin 5 mg oral tablet, chewable) 1 tab(s) Daily Unchanged Magnesium Carbonate 54 Milligram Oral Daily Unchanged Metoprolol (metoprolol 25 mg oral tablet, extended release) 0.5 tab(s) Oral Daily Unchanged Miscellaneous Rx (HUM Nutristion daily clense) Unchanged Misoprostol (miSOPROStol 200 mcg oral tablet) See instructions Place 2 tabs between cheek and gums on EACH side, let dissolve for 30 min then swallow the rest with water ?? Unchanged Multivitamin Unchanged Multivitamin, ( Multivitamins) Oral Daily Unchanged Omeprazole (PriLOSEC OTC 20 mg oral delayed release tablet) 1 tab(s) Oral Twice a day Unchanged Ondansetron (ondansetron 4 mg oral tablet, disintegrating) 1 tab(s) Oral Every 8 hours as needed for Nausea & Vomiting Unchanged Oxycodone (oxyCODONE 5 mg oral tablet) 1 tab(s) Oral Every 6 hours as needed for as needed for pain Unchanged Sertraline (Zoloft 25 mg oral tablet) 1 tab(s) Oral Daily Medications and Immunizations Administered Medications Given During Visit No medications given during this visit.?? Allergies (NKA means No Known Allergies) No Known Medication Allergies Common Emergency Awareness Tips IS IT A STROKE? Act FAST and Check for these signs: FACE Does the face look uneven? ARM Does one arm drift down? SPEECH Does their speech sound strange? TIME Call at any sign of stroke ?? Heart Attack Signs Chest discomfort: Most heart attacks involve discomfort in the center of the chest and lasts more than a few minutes, or goes away and comes back. It can feel like uncomfortable pressure, squeezing, fullness or pain. Discomfort in upper body: Symptoms can include pain or discomfort in one or both arms, back, neck, jaw or stomach. Shortness of breath: With or without discomfort. Other signs: Breaking out in a cold sweat, nausea, or lightheaded. Remember, MINUTES DO MATTER. If you experience any of these heart attack warning signs, call to get immediate medical attention! ?? Smoking can increase your chances of developing chronic health problems and can cause harmful effects to other family members in your house. If you smoke, you are strongly encouraged to quit. Please call [employer] Link at [phone] or 3-800-304Associated Content (0618) or log in to [email or web address] for referrals to smoking cessation programs. ?? The National Suicide Prevention Hotline is available 01/02 if you or someone you know needs to find a reason to keep living. By calling 7-657-429-Mango[employer]ate (9078) you'll be connected to a skilled, trained counselor at a crisis center in your area. [facility] Portal You can view and manage your care through the patient portal or by using a health care olga of your choosing. [employer] is a website that allows you to securely view your medical information including your hospital discharge summary, office visit summaries, medications and follow-up visits. You can also request appointments, renew medications, and request access to your medical information using a health care olga of your choosing, or just ask a question. You can enroll at [email or web address] or register during your next office visit. [facility], in keeping with [facility] guidance, no longer requires face masks for staff, patientsor visitors in most situations. Similiar to time spent indoors at other locations, there is the chance that you were exposed to repiratory viruses during your time with us (such as flu or COVID-19). If you develop symptoms concerning for a viral respiratory infection, please seek testing (and treatment if indicated) from your medical provider or home test kit. ?? Disclaimer: The information provided is of a general nature and is intended to be used in conjunction with the recommendations and advice of your health care practitioner. Every effort has been made to ensure that the information provided is accurate and complete at the time it is provided to you however, as your needs change, or, as new information becomes available, different or additional instructions may be required. ?? If you have questions, please consult with your primary care provider or pharmacist, as appropriate. This information is not intended to serve as substitution for assessment and evaluation by a qualified health care provider. If you do not have a primary care provider, you may find a [facility] provider by calling [facility] Link at [phone]. Patient Care team information Care Team Personnel Name: Gavin Velez MD Position: [facility] Physician - Gastroenterology Member Role: Lifetime Consulting Physician Address: [address], [address] [facility] [place] [address]- [place] Telecom: Name: Kiana Cardona Position: Reference Physician Member Role: PCP Address: [address] [place] [address]- [place] Telecom: Name: Rhea Cortés Position: [facility] Associate Professional Member Role: Lifetime Consulting Provider Address: [address] [facility] [place] [address]- [place] Telecom: Care Team Related Persons Name: VANDANA LEMUS Name: RIGOBERTO VICENTE Name: FRANCISCO JAVIER LYLE Insurance Providers Guarantor name: SHAR VICENTE Health Plan Information #: 1 Payer: [facility] FF NON BHP HMO Member Number: [id number] Policy Number: NA Group Number: [id number] Health Plan Information #: 2 Payer: [facility] Member Number: NA Policy Number: ANITHA Group Number: ANITHA Health Plan Information #: 3 Payer: [facility] FF NON BHP HMO Member Number: [id number] Policy Number: NA Group Number: [id number]
--- OUTSIDE RECORDS SUMMARY | 2024-09-08 10:54 | XMS_ITS | Continuity of Care Document ---
Author Organization [facility] Address [address] [place] [address] [facility] Name Relationship Address Phone FRANCISCO JAVIER LEMUS [...] Unknown Unavai lable Care Team Providers Care Water And Fire Technician Name Role Phone Kiana Cardona Primary Care Phys[id number] Date(s): 08/03/24 - 09/06/[address] Attending Physician: Rhea Cortés Admitting Physician: Rhea Cortés Referring Physician: Kiana Cardona Encounter Type: Pre-Outpt Allergies, Adverse Reactions, Alerts No Known Medication Allergies Immunizations Given and Recorded Vaccine Date Status Refusal Reason SARS-CoV-2 (COVID-19) mRNA-1273 vaccine 02/14/21 R ecorded SARS-CoV-2 (COVID-19) mRNA-1273 vaccine 12/04/20 R ecorded influenza virus vaccine, inactivated 1 06/19/19 Gi chuck tetanus/diphtheria/pertussis, acel(Tdap) 10/21/16 Given 1Result Comment: [facility]:78783-987-99 Medications Claritin 5 mg oral tablet, chewable 1 tablet = 5 mg, Daily, 0 Refills, Maintenance, 08/04/19 2:58:00 PM EST Start Date: 08/04/19 Status: Ordered Repeat number: 1 Flonase 50 mcg/inh nasal spray 1 sprays, Nares, Both, 2 times a day, # 16 Gm, 0 Refills, Maintenance, 05/26/18 11:16:10 AM EST, [place], [facility]/pharmacy #[id number], 1 sprays Nares, Both 2 times [...] Replace Required Details, Route to Pharmacy Electronically, [facility]/pharmacy #[id number], Partial fill upon patient request if the [...] 5:59:00 PM EST, Route to Pharmacy Electronically, [facility]/pharmacy #[id number], Partial fill upon patient request if the [...] 9:10:00 AM EST, Route to Pharmacy Electronically, [facility]/pharmacy #[id number], Partial fill upon patient request if [...] 5:59:00 PM EST, Route to Pharmacy Electronically, [facility]/pharmacy #[id number], Partial fill upon patient request if the [...] Unit: tablet Repeat number: 1 Vitamin D 54310 iu oral capsule 50,000 International_Units, By Mouth, [...] Team Personnel Name: Gavin Velez MD Position: [facility] Physician - Gastroenterology Member Role: Lifetime Consulting Physician Address: [address], [address] [facility] [place] [address]- [place] Telecom: Name: Kiana Cardona Position: Reference Physician Member Role: PCP Address: [address] [place] [address]- [place] Telecom: Name: Rhea Cortés Position: [facility] Associate Professional Member Role: Lifetime Consulting Provider Address: [address] [facility] [place] [address]- Telecom: Care Team Related Persons Name: VANDANA LEMUS Name: RIGOBERTO VICENTE Name: FRANCISCO JAVIER LYLE Insurance Providers Guarantor name: SHAR VICENTE Health Plan Information #: 2 Payer: [facility] FF NON BHP HMO Member Number: [id number] Policy Number: NA Group Number: [id number] Health Plan Information #: 1 Payer: [facility] Member Number: [id number] Policy Number: NA Group Number: [id number]
--- OUTSIDE RECORDS SUMMARY | 2024-09-08 10:54 | XMS_ITS | Continuity of Care Document ---
Author Organization Psychiatric Address [address] [place] [address]- [facility] Name Relationship Address Phone FRANCISCO JAVIER LEMUS [...] Unknown Unavai lable Care Team Providers Care Retail Inventory Control Clerk Name Role Phone Arun ZAMORA, Kiana Karimi Primary Care Physician Encounter [facility] Date(s): 08/03/24 - 09/02/[address] Encounter Type: Triage Allergies, Adverse Reactions, Alerts No Known Medication Allergies Immunizations Given and Recorded Vaccine Date Status Refusal Reason SARS-CoV-2 (COVID-19) mRNA-1273 vaccine 02/14/21 R ecorded SARS-CoV-2 (COVID-19) mRNA-1273 vaccine 12/04/20 R ecorded influenza virus vaccine, inactivated 1 06/19/19 Gi chuck tetanus/diphtheria/pertussis, acel(Tdap) 10/21/16 Given 1Result Comment: [facility]:13164-786-28 Medications Claritin 5 mg oral tablet, chewable 1 tablet = 5 mg, Daily, 0 Refills, Maintenance, 08/04/19 2:58:00 PM EST Start Date: 08/04/19 Status: Ordered Repeat number: 1 Flonase 50 mcg/inh nasal spray 1 sprays, Nares, Both, 2 times a day, # 16 Gm, 0 Refills, Maintenance, 05/26/18 11:16:10 AM EST, [place], [facility]/pharmacy #[id number], 1 sprays Nares, Both 2 [...] Replace Required Details, Route to Pharmacy Electronically, [facility]/pharmacy #[id number], Partial fill upon patient request if the [...] 5:59:00 PM EST, Route to Pharmacy Electronically, [facility]/pharmacy #[id number], Partial fill upon patient request if the [...] 9:10:00 AM EST, Route to Pharmacy Electronically, [facility]/pharmacy #[id number], Partial fill upon patient request [...] 1 Refills, Maintenance, 09/02/23 5:58:00 PM EST, [facility]/pharmacy #[id number], Partial fill upon patient request [...] Refills, Maintenance, 09/02/23 5:58:00 PM EST, Tablet, [facility]/pharmacy #[id number], Partial fill upon patient request [...] 5:59:00 PM EST, Route to Pharmacy Electronically, [facility]/pharmacy #[id number], Partial fill upon patient request if the [...] Unit: tablet Repeat number: 1 Vitamin D 05758 iu oral capsule 50,000 International_Units, By Mouth, [...] Team Personnel Name: Gavin Velez MD Position: [facility] Physician - Gastroenterology Member Role: Lifetime Consulting Physician Address: [address], [address] [facility] [place] [address]- [place] [employer]: Name: Kiana Cardona Position: Reference Physician Member Role: PCP Address: [address] [place] [address]- [place] [employer]: Name: Rhea Cortés Position: [facility] Associate Professional Member Role: Lifetime Consulting Provider Address: [address] [facility] [place] [address]- [place] [employer]: Care Team Related Persons Name: VANDANA LEMUS Name: RIGOBERTO VICENTE Name: FRANCISCO JAVIER LYLE Insurance Providers Guarantor name: SHAR VICENTE Health Plan Information #: 1 Payer: [facility] NON P HMO Member Number: NA Policy Number: NA Group Number: NA
== END 2024-09-08 10:13 | disposition home or self-care (01) ==
PROVIDERS: PCP Physician Assistant; Visit Provider Nurse Practitioner Family
DX: K21.9 Gastro-esophageal reflux disease without esophagitis (principal)

== ENCOUNTER 2024-09-08 10:00 | Outpatient (REF) | payer OTHER, SELFPAY ==
[2024-09-10 10:25] LABS: H Pylori Breath Test Negative (Negative)
== END 2024-09-08 10:01 | disposition home or self-care (01) ==
LOC: HO.LNP 10:00
PROVIDERS: PCP Physician Assistant; Visit Provider Nurse Practitioner Family
DX: K21.9 Gastro-esophageal reflux disease without esophagitis (principal)
CPT/HCPCS: 83013; 99211

== ENCOUNTER 2024-10-09 11:00 | Outpatient (AMB) | payer OTHER, SELFPAY ==
--- OUTSIDE RECORDS SUMMARY | 2024-10-09 12:30 | XMS_ITS | Data Portability ---
Author Organization [place] - [facility], Allergy Address [address] [address] Care Team Providers Care Citrus Peeler Name Role Phone SALEEM CAPUTO Primary Care Provider [phone] Assessment Encounter Date Assessment Date Assessment LastModified [...] to read at home, which gives a [id number]-[id number] discussion on what causes migraine and how [...] which should help. Follow up: As needed [email or web address] Not available 09/07/2024 10:35:42 Plan of Treatment [...] audio gram No observ ation record ed. Not Available 08/13 10:38:37 Result Notes None recorded. Problems Name Problem SNOMED Code Status Onset Date Resolution Date Notes Provider Name and Address Organization Details Recorded Time Sensorine ural hearing loss of bilateral ears [id number] Active 2017 Sensorineu ral hearing loss, bilateral; Note: Date Diagnosed: 02/08/2018 2:56 PM (H90.3) Not Available [facility] 4 02:41:27 Refractor y migraine 178029497 Active 2017 Other migraine, intractabl e, without status migrainosu s; Note: Date Diagnosed: 02/08/2018 3:04 PM (G43.819) Not Available [facility] 4 02:41:24 Chronic pharyngit is 762753 Active 2016 Chronic sore throat; Note: Date Diagnosed: 08/18/2016 12:20 PM (J31.2) Not Available [facility] 4 02:41:31 Dizziness and giddiness 041639146 Active 2017 Dizziness and giddiness; Note: Date Diagnosed: 02/08/2018 3:04 PM (R42) Not Available [facility] 4 02:41:28 Neurologi saskia symptom 157528010 Active 2020 Other symptoms and signs involving the nervous system; Note: Date Diagnosed: 12/19/2020 4:56 PM (R29.818) Not Available [facility] 4 02:41:25 Generaliz ed anxiety disorder 10387528 Active 2020 Generalize d anxiety disorder; Note: Date Diagnosed: 08/08/2020 9:48 AM (F41.1) Not Available [facility] 4 02:41:23 M? ? ?ni? ? ?re's disease 58048449 Active 2017 Meniere's disease, right ear; Note: Date Diagnosed: 03/03/2018 5:11 PM (H81.01) Not Available [facility] 4 02:41:29 Gastroeso phageal reflux disease without esophagit is 369078537 Active 2016 Gastro-eso phageal reflux disease without esophagiti s; Note: Date Diagnosed: 08/18/2016 12:25 PM (K21.9) Not Available [facility] 4 02:41:23 Vertigo of central origin 88079598 Active 2023 Vertigo of central origin; Note: Date Diagnosed: 08/31/2023 2:43 PM (H81.4) Not Available [facility] 4 02:41:28 Problem Notes None recorded. Procedures Surgical History None recorded. Imaging Results Imaging Date Name Status LastModified by Organiz ation Details LastModified Time 11/21/2023 audiogram completed [email or web address] Information n ot available 09/07/2024 10:38:37 Procedure Notes None recorded. Medical Equipment None Reported. [...] dose pack 09/07 completed Medicati on ID: [id number] D uration Value: 6 Brand Name: Medrol (Ion) Se nd Method: E-Prescr ibed Sub s Allowed: subs OK Speci al Instruct ion: Take 1 pack as directed Medicat ionGener icName: Medrol (Ion) Not Available Not Available Not Available prednison e 20 mg tablet 03/03 completed Medicati on ID: [id number] P livribe d By Name: Jdue Pacheco nd Name: predniso ne Send Method: [...] elayed release 02/08 completed Medicati on ID: [id number] D uration Value: 30 Reason: () Brand Name: omeprazo le Send Method: E-Prescr ibed Sub s Allowed: subs OK Speci al Instruct ion: TAKE 1 CAPSULE EVERY DAY Medi cationGe nericNam e: omeprazo le Not Available Not Available Not Available alprazola m 0.25 mg tablet 09/07 completed Medicati on ID: [id number] D uration Value: 10 Brand Name: alprazol [...] mg tablet 09/07 completed Medicati on ID: [id number] B rand Name: lorazepa m Send Method: [...] by mouth 08/08 completed Medicati on ID: [id number] P kirabe d By Name: Jude Pacheco nd Name: Dyazide [...] Available Xanax 02/08 completed Medicati on ID: [id number] R krystina: () Brand Name: xanax Se nd Method: E-Prescr ibed Sub s Allowed: subs OK Medic ationGen ericName : xanax Not Available Not Available Not Available Nexium 24HR 20 mg tablet,de layed release 09/07 completed Medicati on ID: [id number] B rand Name: Nexium 24HR Sen d [...] SNOMED-CT Code Diagnosis ICD10 Code Diagnosis Note [id number] DOMENIC TOWNSEND MD [facility] [address] [address] 09/07/2024 09:48:51 09/07/2024 10:36:51 Cochlear prosthesis in situ [id number] Z96.21 Patient is likely due to get a new processor. This should be covered by her insurance as her current processor has been deemed obsolete and is no longer repairable . I have asked patient's mother to contact [employer] to initiate the process for getting a new processor. In the meantime they will follow-up with the [facility] Cochlear Implant Program for mapping and device troublesho oting. Refractory migraine [id number] G43.819 Vertigo of central origin [id number] H81.4 Neurological symptom [id number] R29.818 Health Concerns Section Related Observation LastModified by Organization Detai ls LastModified Time None Recorded Concern Status LastModified by Organization Details LastModified Time None Recorded Advance Directives Directive None Recorded Payers Encounter Date Sequence Insurance Name Policy Number Policy Dumont Covered Member ID Dumont Member ID Guarantor Name 09/07/2024 1 [facility] [id number] Lashay Martel [id number] Lashay Martel Notes Date Note Type Note Provider Name and Address Organization Details Recorded Time 09/07/2024 text/html 29-year-old femkody castellon who had right sided cochlear implant [...] I provided her.Patient is working with the [facility] Cochlear Implant Program for mapping and device maintenance. Her current processor is about 8 years old and is starting to fail. They just needed to get a new coil because it broke. She comes in today accompanied by her mother DOMENIC TOWNSEND MD [address] [place] [address], [place], [address], [facility] - [facility] 09/07/2024 10:37:12 OBGyn Episode No OBEpisode recorded.
--- NOTE | 2024-10-09 13:06 | AM.OFFWIN_ITS ---
Intake Vital Signs 10/09/24 13:15 Weight 139 lb BP 110/70 Blood Pressure Location Rt brachial Position Sitting Pulse 88 Pulse Source Pulse Oximeter Pulse Oximetry (%) 99 Oxygen Delivery Method Room Air Intake Visit Reasons: EP Sinus infection? (car [phone]) Intake Note: Patient here for head pain, fatigue, congestion and difficulty hearing that has been present for a couple of weeks. Patient Tobacco Use Status: Never used Tobacco Allergies cephalexin Allergy (Severe, Verified 10/09/24 13:07) Difficulty Breathing Penicillins Allergy (Verified 10/09/24 13:07) Unknown prednisone Adverse Reaction (Verified 10/09/24 13:07) Anxiety Do you need a note to return to daycare/school/sports/work: Yes HPI HPI Comments History of Present Illness Details History - The patient is a 29-year-old female pr esenting with symptoms suggestive of sinusitis. She reports onset of symptoms several months ago with progressive exacerbation, particularly noted in the past two weeks. Her complaints include severe migraine-like headache, nasal congestion with yellow discharge, and a painful sensation within the nasal passages. - She denies any fever or cough, indicat ing the concentration of symptoms in the head region, though mentions a change in hearing without associated ear pain. She speculates a possible staphylococcal infection, citing previous similar infections, although no history of MRSA is noted. - The patient has attempted symptomatic relief with ibuprofen and Flonase with minimal efficacy and uses hydroxyzine nightly for unrelated complaints. She is wary of antibiotic options due to a suspected allergy to cephalosporins, considering her response to earlier cefalaxone use, but expresses a willingness to try amoxicillin in light of a previous lack of penicillin allergy. Physical Exam General: Cooperative, healthy appearing, comfortable and no acute distress Orientation/consciousness: Patient oriented x3 Limitations: No limitations Head: Atraumatic Ears: Hearing difficulty, external ears normal and TM's normal bilaterally Nose: Normal external nose present, Normal nares present, Yellow mucus present, and Nasal tenderness present Face and sinus: Normal facial exam and Sinuses tender Mouth: Normal oral and palatal mucosa present and moist mucous membranes Throat: Yes tonsils normal, Yes uvula midline. Posterior oropharynx erythema Eyes: Appearance normal, both eyes and all related structures Neck: Normal visual inspection Respiratory: Normal respiratory effort, able to speak in complete sentences, No active coughing, no respiratory distress, not tachypneic, no tripod positioning and no use of accessory muscles Skin: No rashes or lesions noted Neuro: Patient oriented x3 Extremities: Normal to inspection and Yes no clubbing, cyanosis or edema [facility] Medical History (Updated 10/09/24 @ 13:44 by Zunilda Singh PA-C) Abnormal findings on esophagogastroduodenoscopy (EGD) Alcohol use disorder Epigastric abdominal pain ROMY (generalized anxiety disorder) Acute bronchitis Open wound of right knee Cellulitis of buttock, left Cochlear implant in place Encounter to establish care Panic attacks Severe anxiety Anxiety Surgical History (System 09/27/24 @ 14:26 by Zunilda Mata) History of esophagogastroduodenoscopy No pertinent past surgical history Family History Other Mental health disorder Social History (System 09/27/24 @ 14:26 by Zunilda Mata) Household Members: Family Housing: House Do you presently have visiting nurse or other home services: No Alcohol intake: former Comment: currently not using alcohol as of Jul 2024 Patient Tobacco Use Status: Never used Tobacco e-Cigarette/Vaping Use: Never Used Second Hand Smoke Exposure: No service: No 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al status: employed 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 [place] Cognitive needs: No Hearing needs: No Vision needs: No Review of Systems Const All systems reviewed & are unremarkable except as noted in HPI and below Physical Exam Vital Signs: Last Vital Signs Pulse 88 10/09/24 13:15 BP 110/70 10/09/24 13:15 Pulse Ox 99 10/09/24 13:15 Oxygen Delivery Method Room Air 10/09/24 13:15 Assessment & Plan Assessment & Plan (1) Acute bacterial sinusitis: Code(s): J01.90 - Acute sinusitis, unspecified; B96.89 - Other specified bacterial agents as the cause of diseases classified elsewhere Plan: VSS, pt well appearing and PE remarkable for sinus ttp. The patient is diagnosed with bacterial sinusitis. We elected to administer Doxycycline instead of Augmentin due to concerns about penicillin allergies, highlighted by prior adverse reactions to cephalosporins. Doxycycline is prescribed at a dosage of twice daily for seven days. The patient has been counseled on potential side effects and instructed to monitor her symptoms vigilantly. Coordination for prescription dispensing was done according to the patient's preference for pharmacy location. She is directed to follow up as necessary should any adverse events or further concerns arise. Patient was informed and verbally consented to the use of an ambient scribe for clinic note documentation during this visit Medications: New doxycycline hyclate 100 mg PO BID 14 tabs 0RF Coding Level of Care Code Est Pt Level 3 (39429) Diagnoses Acute bacterial sinusitis J01.90; B96.89
[2024-10-09 13:15] VITALS: BP 110/70; PULSE 88; O2SAT 99
== END 2024-10-09 14:18 | disposition home or self-care (01) ==
PROVIDERS: PCP Nurse Practitioner Family; Visit Provider Physician Assistant
DX: J01.90 Acute sinusitis, unspecified (principal); B96.89 Other specified bacterial agents as the cause of diseases classified elsewhere

== ENCOUNTER → 2024-10-09 11:00 | Outpatient (BNVA) | payer OTHER, SELFPAY | PROVIDERS: PCP Nurse Practitioner Family; Visit Provider Physician Assistant ==

== ENCOUNTER → 2024-10-24 09:06 | Outpatient (REF) | payer OTHER, SELFPAY | LOC: HO.SL 09:06 | PROVIDERS: PCP Nurse Practitioner Family; Visit Provider Nurse Practitioner Family | DX: R06.83 Snoring (principal); R06.00 Dyspnea, unspecified; G47.19 Other hypersomnia | CPT/HCPCS: 95806 ==

== ENCOUNTER → 2024-10-25 09:16 | Outpatient (BNV) | payer OTHER, SELFPAY | PROVIDERS: PCP Nurse Practitioner Family; Visit Provider Psychiatry & Neurology Neurology | DX: R06.83 Snoring (principal); G47.10 Hypersomnia, unspecified | CPT/HCPCS: 95806 ==

== ENCOUNTER 2024-10-31 10:04 | Outpatient (AMB) | payer OTHER, SELFPAY ==
[2024-10-31 10:05] VITALS: BP 124/78; PULSE 88; RESP 14; TEMP 36.4; O2SAT 98; BMI 24.2
--- NOTE | 2024-10-31 10:05 | A.OFFPC_ITS ---
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 Required: No Accompanied by: Self / Same As Patient Allergies cephalexin Allergy (Severe, Verified 11/07/24 20:19) Difficulty Breathing Penicillins Allergy (Verified 11/07/24 20:19) Unknown prednisone Adverse Reaction (Verified 11/07/24 20:19) Anxiety Medication List - Last Reconciled 11/07/24 by Harshad Toth MD cholecalciferol (vitamin D3) 50 mcg PO DAILY clonazepam 0.5 mg PO BID PRN cyanocobalamin (vitamin B-12) 500 mcg PO DAILY 30 days esomeprazole magnesium (Nexium) 40 mg PO DAILY gabapentin 300 mg PO Q8H hydroxyzine HCl 25 mg PO BEDTIME loratadine 10 mg PO DAILY magnesium 250 mg PO BEDTIME riboflavin (vitamin B2) mg PO Tobacco use date assessed: 10/31/24 Dental Screening Dental Screen Date: 10/31/24 Did you have a dental visit in the last 12 months?: No Did you have a dental problem in the last 6 months where you did not have access to dental care?: No Was dental information given to patient?: Patient has dentist HPI New Patient HPI Details 29-year-old female [facility] her care. She was seeing another primary care provider at [facility] and decided to transfer her care to this office. 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 She has episodes of intense anxiety and is currently under the treatment of a psychiatrist and therapist. Because of her chronic and severe illness, she is requesting FMLA papers to be filled at the appropriate time. Currently she feels fine and is able to function. 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 Encounter to establish care Panic attacks Severe anxiety Anxiety Surgical History History of esophagogastroduodenoscopy No pertinent past surgical history Family History (Updated 10/31/24 @ 10:15 by RAFIA Sweeney) Father BP (high blood pressure) Mother Breast cancer Other Mental health disorder Social History (Updated 10/31/24 @ 10:15 by RAFIA Sweeney) Household Members: [facility] Do you presently have visiting nurse or other home services: No Alcohol intake: current Alcohol intake frequency: a few times a month Patient Tobacco Use Status: Never used Tobacco service: No 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al status: employed 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 [place] Cognitive needs: No Hearing needs: Yes (right ear hearing aids) Vision needs: No Questionnaire PHQ-9 Over the last 2 weeks, how often have you been bothered by any of the following problems? 1. Little interest or pleasure in doing things: not at all 2. Feeling down, depressed, or hopeless: not at all 3. Trouble falling or staying asleep, or sleeping too much: not at all 4. Feeling tired or having little energy: not at all 5. Poor appetite or overeating: not at all 6. Feeling bad about yourself - or that you are a failure or have let yourself or your family down: not at all 7. Trouble concentrating on things, such as reading the newspaper or watching television: not at all 8. Moving or speaking so slowly that other people could have noticed. Or the opposite - being so fidgety or restless that you have been moving around a lot more than usual: not at all 9. Thoughts that you would be better off or of hurting yourself in some way: not at all Total score: 0 Source: Developed by Drs. Spencer Gimenez, Rosanne Gonzalez, Boaz Ford and colleagues, with an educational jose r from [employer]. Thrive Questionnaire Date Thrive assessed: 10/31/24 I am a: Patient What is your living situation today?: I have a steady place to live Within the past 12 months, did the food you bought not last and you didn't have the money to get more?: Never true Within the past 12 months, did you worry whether your food would run out before you got money to buy more?: Never true Do you have trouble paying for medicines?: No Do you have trouble getting transportation to medical appointments?: No Do you have trouble paying your heating and electricity bill?: No Do you have trouble taking care of your child, family member or friend?: No Do you have trouble with day-to-day activities such as bathing, preparing meals, shopping, managing finances, etc.?: No Are you currently unemployed and looking for a job?: No Are you interested in more education?: No Please select the resources that you would like help with: None THRIVE Score: 0 AUDIT C Alcohol Use Questionnaire (AUDIT-C) 1. How often do you have a drink containing alcohol?: 2-4 times a month 2. How many drinks containing alcohol do you have on a typical day when you are drinking?: 1 or 2 3. How often do you have six or more drinks on one occasion?: Never Total Score: 2 ROMY-7 AMB Questionnaire ROMY-7 Date ROMY - 7 assessed: 10/31/24 Feeling nervous, anxious, or on edge: 1 = Several days Not being able to stop or control worryin = Several days Worrying too much about different things: 1 = Several days Trouble relaxin = Several days Being so restless that it is hard to sit still: 0 = Not at all Becoming easily annoyed or irritable: 0 = Not at all Feeling afraid as if something awful might happen: 1 = Several days Total ROMY-7 score (0-4 normal; 5-9 mild; 10-14 moderate; 15-21 severe): 5 Source: Developed by Drs. Spencer Gimenez, Rosanne Gonzalez, Boaz Ford and colleagues, with an educational jose r from [employer]. Physical exam (Primary Care) Vital Signs: Last Vital Signs Temp 97.6 F 10/31/24 10:05 Pulse 88 10/31/24 10:05 Resp 14 10/31/24 10:05 BP 124/78 10/31/24 10:05 Pulse Ox 98 10/31/24 10:05 Oxygen Delivery Method Room Air 10/31/24 10:05 BMI result Body Mass Index 24.2 Tobacco/Smoking Status: Tobacco use Status Tobacco use date assessed 10/31/24 10/31/24 10:16 Patient Tobacco Use Status Never used Tobacco 10/31/24 10:16 e-Cigarette/Vaping Use 10/31/24 10:16 PHQ-9: PHQ-9 Score PHQ-9: Total score 0 10/31/24 10:16 Thrive Assessment: Date of Thrive Assessment Date Thrive assessed 10/31/24 10/31/24 10:16 Const General: cooperative and healthy appearing Nutritional Appearance: well nourished Orientation/consciousness: patient oriented x3 Limitations: no limitations HENMT Head: Yes normal to inspection Eyes General: appearance normal, both eyes and all related structures Neck Neck: Yes normal visual inspection Chest Chest palpation & inspection: normal palpation of entire chest wall Resp Effort & Inspection: normal respiratory effort Neuro General: patient oriented x3 Coding Level of Care Code Est Pt Level 3 (23098) Complex EM visit Add On G2211 Diagnoses Severe anxiety F41.9 Assessment & Plan Assessment & Plan (1) Severe anxiety: Code(s): F41.9 - Anxiety disorder, unspecified Category: Medical Plan: Patient has severe anxiety and a somatoform disorder. She is seeing a psychiatrist and all medications are through them. When FMLA forms are needed, we will fill them if appropriate.
--- OUTSIDE RECORDS SUMMARY | 2024-10-31 11:26 | XMS_ITS | Data Portability ---
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 Follow up: As needed [email or web address] Not available 09/07/2024 10:35:42 Plan of Treatment [...] audio gram No observ ation record ed. [email or web address] Not Available 08/13 10:38:37 Result Notes None recorded. Problems Name Problem SNOMED Code Status Onset Date Resolution Date Notes Provider Name and Address Organization Details Recorded Time Sensorine ural hearing loss of bilateral ears 537160766 Active 2017 Sensorineu ral hearing loss, bilateral; Note: Date Diagnosed: 02/08/2018 2:56 PM (H90.3) Not Available [facility] 4 02:41:27 Refractor y migraine 101959314 Active 2017 Other migraine, intractabl e, without status migrainosu s; Note: Date Diagnosed: 02/08/2018 3:04 PM (G43.819) Not Available [facility] 4 02:41:24 Chronic pharyngit is 459045 Active 2016 Chronic sore throat; Note: Date Diagnosed: 08/18/2016 12:20 PM (J31.2) Not Available [facility] 4 02:41:31 Dizziness and giddiness 758272742 Active 2017 Dizziness and giddiness; Note: Date Diagnosed: 02/08/2018 3:04 PM (R42) Not Available [facility] 4 02:41:28 Neurologi saskia symptom 308746524 Active 2020 Other symptoms and signs involving the nervous system; Note: Date Diagnosed: 12/19/2020 4:56 PM (R29.818) Not Available [facility] 4 02:41:25 Generaliz ed anxiety disorder 18011353 Active 2020 Generalize d anxiety disorder; Note: Date Diagnosed: 08/08/2020 9:48 AM (F41.1) Not Available [facility] 4 02:41:23 M? ? ?ni? ? ?re's disease 45930322 Active 2017 Meniere's disease, right ear; Note: Date Diagnosed: 03/03/2018 5:11 PM (H81.01) Not Available [facility] 4 02:41:29 Gastroeso phageal reflux disease without esophagit is 555622690 Active 2016 Gastro-eso phageal reflux disease without esophagiti s; Note: Date Diagnosed: 08/18/2016 12:25 PM (K21.9) Not Available [facility] 4 02:41:23 Vertigo of central origin 39038995 Active 2023 Vertigo of central origin; Note: Date Diagnosed: 08/31/2023 2:43 PM (H81.4) Not Available [facility] 4 02:41:28 Problem Notes None recorded. Procedures Surgical History None recorded. Imaging Results Imaging Date Name Status LastModified by Organiz ation Details LastModified Time 11/21/2023 audiogram completed [email or web address] Information n ot available 09/07/2024 10:38:37 Procedure [...] dose pack 09/07 completed Medicati on ID: [id number] D uration Value: 6 Brand Name: Medrol (Ion) Se nd Method: E-Prescr ibed Sub s Allowed: subs OK Speci al Instruct ion: Take 1 pack as directed Medicat ionGener icName: Medrol (Ion) Not Available Not Available Not Available prednison e 20 mg tablet 03/03 completed Medicati on ID: [id number] P livribe d By Name: Jude Pacheco nd Name: [...] elayed release 02/08 completed Medicati on ID: [id number] D uration Value: 30 Reason: () Brand Name: omeprazo le Send Method: E-Prescr ibed Sub s Allowed: subs OK Speci al Instruct ion: TAKE 1 CAPSULE EVERY DAY Medi cationGe nericNam e: omeprazo le Not Available Not Available Not Available alprazola m 0.25 mg tablet 09/07 completed Medicati on ID: [id number] D uration Value: 10 Brand Name: alprazol [...] mg tablet 09/07 completed Medicati on ID: [id number] B rand Name: lorazepa m Send Method: [...] by mouth 08/08 completed Medicati on ID: [id number] P kirabe d By Name: Jude Pacheco [...] Available Xanax 02/08 completed Medicati on ID: [id number] R krystina: () Brand Name: xanax Se nd Method: E-Prescr ibed Sub s Allowed: subs OK Medic ationGen ericName : xanax Not Available Not Available Not Available Nexium 24HR 20 mg tablet,de layed release 09/07 completed Medicati on ID: [id number] B rand Name: Nexium 24HR Sen d [...] SNOMED-CT Code Diagnosis ICD10 Code Diagnosis Note [id number] DOMENIC TOWNSEND MD [facility] [address] [address] 09/07/2024 09:48:51 09/07/2024 10:36:51 Cochlear prosthesis in situ [id number] Z96.21 Patient is likely due to get a new processor. This should be covered by her insurance as her current processor has been deemed obsolete and is no longer repairable . I have asked patient's mother to contact [employer] to initiate the process for getting a new processor. In the meantime they will follow-up with the [facility] Cochlear [facility]plant [facility] for mapping and device troublesho oting. Refractory migraine [id number] G43.819 Vertigo of central origin 52580085 H81.4 Neurological symptom 308 309077 R29.818 Health Concerns Section Related Observation LastModified by Organization Detai ls LastModified Time None Recorded Concern Status LastModified by Organization Details LastModified Time None Recorded Advance Directives Directive None Recorded Payers Encounter Date Sequence Insurance Name Policy Number Policy [place] Covered Member ID [place] Member ID Guarantor Name 09/07/2024 1 [facility] [id number] Lashay Martel [id number] Lashay Martel Notes Date Note Type Note [...] I provided her.Patient is working with the [facility] Cochlear Implant Program for mapping and device maintenance. Her current processor is about 8 years old and is starting to fail. They just needed to get a new coil because it broke. She comes in today accompanied by her mother DOMENIC TOWNSEND MD [address] [place] [address], [place], [address], [facility] - [facility] 09/07/2024 10:37:12 OBGyn Episode No OBEpisode recorded.
== END 2024-10-31 10:32 | disposition home or self-care (01) ==
LOC: HO.HMCSH 10:04
PROVIDERS: PCP Internal Medicine; Visit Provider Internal Medicine
DX: F41.9 Anxiety disorder, unspecified (principal)

== ENCOUNTER → 2024-10-31 10:04 | Outpatient (BNVA) | payer OTHER, SELFPAY | PROVIDERS: PCP Internal Medicine; Visit Provider Internal Medicine ==

== ENCOUNTER 2024-11-23 09:52 | Outpatient (REF) | payer BC, SELFPAY ==
--- NOTE | 2024-11-23 09:57 | EEG_ITS ---
FINDINGS: This is a 16-channel EEG with an EKG lead. The patient is reported awake during the tracing. Background EEG rhythm is about 10 Hz to faster low to medium amplitude posteriorly, lower amplitude fast anteriorly. Some lead and muscle artifacts are noted. Photic stimulation does not produce any significant abnormality. Hyperventilation is not performed. Cardiac lead does not reveal any significant abnormality. No sharp wave spikes or paroxysmal tendency noted. IMPRESSION: No significant abnormality noted on this EEG. MD PRAKASH Esteban/PAOLA / [id number]
== END 2024-11-23 09:53 | disposition home or self-care (01) ==
LOC: HO.NEURO 09:52
PROVIDERS: PCP Internal Medicine; Visit Provider Nurse Practitioner Family
DX: Z96.21 Cochlear implant status (principal); F09 Unspecified mental disorder due to known physiological condition
CPT/HCPCS: 95816

== ENCOUNTER 2024-11-28 08:15 | Outpatient (RCR) | payer OTHER, SELFPAY ==
--- NOTE | 2025-01-01 09:15 | MHC.PT.DC ---
[facility] [place] Office [place] Office [place] Office [address] Néstor Winchester [address] [phone] F: [phone] F: [phone] F: [phone] F: [phone] Physical Therapy Discharge Report Diagnosis: VERTIGO Date of Surgery: Date of Evaluation: 09/12/24 Date of Discharge: Treatments to Date: 8 Cancellations to Date: 2 No Shows to Date: 1 Discharge Status: Achieved Goals Improved Function Independent with HEP Discharge Summary: Reports that she still gets migraines and feels stiff in her neck, but is it not as severe as when she just started. Reports compliance with HEP and recommended she continues with HEP at this time as well as stress management. Minimal cues needed for form with quadruped head positioning to keep neck neutral. Trial of self TrP cane and pt reports relief and will look into one for home program as well. At this time, appropriate for d/c to HEP and she has f/u with neurology 01/08 re ALMEIDA. Electronically signed by: Ceci Hartley PT DPT Please sign and return to therapist. Thank you for your referral.
== END 2025-01-01 09:15 | disposition home or self-care (01) ==
LOC: HO.PT 08:15
PROVIDERS: PCP Nurse Practitioner Family; Visit Provider Internal Medicine
DX: H81.11 Benign paroxysmal vertigo, right ear (principal)
CPT/HCPCS: 95992; 97110; 97140; 97161

== ENCOUNTER 2024-12-29 14:07 | Emergency (ER) | payer BC, SELFPAY ==
--- NOTE | ~2024-12-29 | CT_ITS ---
CLINICAL HISTORY: RLQ tenderness, diarrhea, fever, R O appendicitis CT abdomen and pelvis with contrast Comparison: None provided Findings: No consolidation or effusion. The liver, gallbladder, spleen, pancreas, kidneys and adrenal glands are normal in appearance. No bowel obstruction, pneumoperitoneum, or pneumatosis. Normal appendix. Uterus and adnexa are unremarkable. Small volume free fluid in the pelvis. Segmental areas of wall thickening involving the descending colon, sigmoid colon and rectum. No small bowel wall thickening. No acute fracture. IMPRESSION: Multifocal segmental areas of wall thickening in the distal colon and rectum concerning for infectious or inflammatory colitis. This document has been electronically signed by: Goran Garsia MD on 12/29/2024 20:14:30
[2024-12-29 14:13] VITALS: BP 128/84; PULSE 110; RESP 16; TEMP 36.8; O2SAT 99; BMI 22.4
--- NOTE | 2024-12-29 14:14 | ED_ITS ---
HPI - Nausea/Vomiting/Diarrhea General Chief complaint: Nausea/Vomiting/Diarrhea Stated complaint: Stomach Flu, neck pain, Fever Time Seen by Provider: 12/29/24 15:53 Source: patient and family (Father) Mode of arrival: ambulatory Limitations: no limitations History of Present Illness ED Provider: Dr. Yohan Zambrano HPI Narrative: 29-year-old female female with a past medical history of anxiety, GERD, vertigo, migraines, somatoform disorder who presents to the emergency department evaluation of abdominal pain, nausea, vomiting, fever, stiff neck, headache and diarrhea. Patient states for the last 2 days she has had too numerous to count episodes of diarrhea. She describes the diarrhea as large volume, watery with no blood. She is also complaining of abdominal pain and points to her right lower quadrant when asked to localize the pain. The pain is a constant, cramping pain which is 8/10 at its worst. Patient complains of constant nausea, has been able to drink fluids but he has had several episodes of vomiting during the past 2 days. She states she has a history of migraine headaches in his had a severe headache for 2 days which she describes as a pressure-like pain located throughout her entire head. She states she has had neck pain for months but she states that her neck pain is gotten worse over the last 2 days as well. Patient states she took Imodium and this stopped her diarrhea. Patient states that 2 months prior she had a staph infection of her nose and was treated with antibiotics. She does not remember the name of the antibiotic but does not remember its name. Related Data Home Medications ?Medication ?Instructions ?Recorded ?Confirmed loratadine 10 mg tablet 10 mg PO DAILY 08/03/2004/05 cholecalciferol (vitamin D3) 50 50 mcg PO DAILY 07/20/24 mcg (2,000 unit) capsule magnesium 250 mg tablet 250 mg PO BEDTIME 04/22/22 0 07/20/24 riboflavin (vitamin B2) 100 mg mg PO 10/31/24 capsule Previous Rx's ?Medication ?Instructions ?Recorded clonazepam 0.5 mg tablet 0.5 mg PO BID PRN anxiety, p anic 07/18/24 attacks #30 tabs hydroxyzine HCl 25 mg tablet 25 mg PO BEDTIME #90 tabs 07/18/24 gabapentin 300 mg capsule 300 mg PO Q8H #90 caps 07/28 cyanocobalamin (vitamin B-12) 500 500 mcg PO DAILY 30 days #30 tabs 08/02/24 mcg tablet lansoprazole 30 mg capsule,delayed 30 mg PO DAILY #30 caps 12/10/24 release albuterol sulfate 90 mcg/actuation 1 inh inhalation QI D PRN shortness 12/18/24 aerosol inhaler of breath or wheezing #6.7 g shruthi montelukast 10 mg tablet 10 mg PO BEDTIME #30 tabs (Singulair) levofloxacin 500 mg tablet 500 mg PO DAILY 5 days #5 t abs 12/29/24 metronidazole 500 mg tablet 500 mg PO TID 5 days #15 t abs 12/29/24 ondansetron 4 mg disintegrating 4 mg PO Q6-8H PRN naus ea and 12/29/24 tablet vomiting #14 tabs Allergies Allergy/AdvReac Type Severity Reaction Status Date / Time cephalexin Allergy Severe Difficulty Verified 12/29/24 14:14 Breathing Penicillins Allergy Unknown Verified 12/29/24 14:14 prednisone AdvReac Anxiety Verified 12/29/24 14:14 Review of Systems 2 Review of Systems: Yes all other systems are reviewed and are negative [facility] Past Medical History Medical History Abnormal findings on esophagogastroduodenoscopy (EGD) Alcohol use disorder Epigastric abdominal pain ROMY (generalized anxiety disorder) Acute bronchitis Open wound of right knee Cellulitis of buttock, left Cochlear implant in place Encounter to establish care Panic attacks Severe anxiety Anxiety Surgical History History of esophagogastroduodenoscopy No pertinent past surgical history Family History Family History (Updated 10/31/24 @ 10:15 by RAFIA Sweeney) Father BP (high blood pressure) Mother Breast cancer Other Mental health disorder Social History Social History (Updated 10/31/24 @ 10:15 by RAFIA Sweeney) Household Members: Family Housing: Condominium Do you presently have visiting nurse or other home services: No Alcohol intake: current Alcohol intake frequency: a few times a month Patient Tobacco Use Status: Never used Tobacco service: No 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al status: employed 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 Cognitive needs: No Hearing needs: Yes (right ear hearing aids) Vision needs: No Physical Exam 2 Vital Signs: Vital Signs: Last Vital Signs Temp 98.1 F 12/29/24 22:22 Pulse 100 12/29/24 22:22 Resp 15 12/29/24 22:22 BP 119/73 12/29/24 22:22 Pulse Ox 98 12/29/24 22:22 O2 Del Method Room Air 12/29/24 22:22 BMI result Body Mass Index 22.4 Vital signs revealed an elevated heart rate of 110 otherwise unremarkable. Exam: General: Awake, alert in no distress, weight 63 kg, low BMI 22.4 kg per m2 Head: Normocephalic, atraumatic, no temporal tenderness, no tenderness palpation over the sinuses EENT: PERRL, Lids normal, sclera normal, conjunctiva normal, nose: Normal appearance, no discharge; ears normal, throat without erythema or exudates Neck: Supple, may able to move the patient's head and neck without any noted stiffness, patient had no pain with passive range of motion. No adenopathy Lung: breath sounds symmetric, no wheezing, rales or rhonchi Chest: symmetric movement, nontender Heart: regular rate and rhythm, normal S1, S2 no murmurs or rubs Abdomen: soft, moderate right lower quadrant tenderness, no rebound, nondistended, normal bowel sounds Back: no vertebral tenderness, no CVAT Extremities: no deformities, moves all extremities symmetrically Neuro: Awake, alert, oriented, normal speech, cranial nerves intact, moves all extremities symmetrically Psych: Pleasant, cooperative Course Course Course Narrative: This is a Rapid Medical Examination (RME) performed by Loretta Ochoa PA-C in triage. Full HPI, ROS, assessment and treatment plan per primary provider in the Main ED. 29 yo female presents to the ER for evaluation of anxiety, GERD, vertigo, migraines, somatoform disorder who presents to the ER for evaluation of 2 days of diarrhea, fever of 102 yesterday and right lower abdominal pain. She now has headache and neck pain with stiffness today. LMP 3 weeks ago. hx ovarian cyst in the past. appears well in triage, slightly tachycardic, mild RLQ tenderness on exam without rebound or guarding. Plan: lab workup, imaging per primary provider. Reevaluation(s) Reevaluation #1: 12/30/24 1022 NOAH Fuentes Received call from lab that patient's GI panel detected salmonella Patient was evaluated at our facility yesterday for acute diarrheal illness. I did reach out to patient regarding these test results. She states she is still having abdominal pain, her mother is currently at the pharmacy picking up her Zofran, Flagyl & levofloxacin. I feel this is appropriate treatment. I did stress the importance of patient taking her antibiotics to completion. I informed patient that if she is not able to tolerate antibiotics orally or having continued or worsening symptoms despite treatment, that she should return to the emergency department for IV antibiotic therapy. She verbalizes understanding. Medications Administered Discontinued Medications Generic Name Dose Route Start Last Admin Trade Name Freq PRN Reason Stop Dose Admin Acetaminophen 975 mg 12/29/24 16:16 12/29/24 17:08 Acetaminophen 325 Mg Tablet PO 12/29/24 16:17 975 mg ONCE STA Administration Diatrizoate Meglum/Diatrizoate Sod 30 ml 12/29/24 19:01 12/29/24 19:01 Diatrizoate Meglumine, Sodium 30 Ml Solution PO 12/29/24 19:02 30 ml ONCE ONE Administration Diphenhydramine HCl 50 mg 12/29/24 16:16 12/29/24 17:09 Diphenhydramine Hcl 50 Mg/Ml Vial IVPUSH 12/29/24 16:17 50 mg ONCE STA Administration Sodium Chloride 1,000 mls @ 999 mls/hr 12/29/24 16:16 12/29/24 18:09 Ns IV 12/29/24 17:16 Infused .Q1H1M STA Infusion Iohexol 100 ml 12/29/24 19:01 12/29/24 19:01 Iohexol 350 Mg/Ml 100 Ml Infus..Btl IV 12/29/24 19:02 85 ml ONCE ONE Administration Ketorolac Tromethamine 15 mg 12/29/24 16:36 12/29/24 17:09 Ketorolac Tromethamine 15 Mg/Ml Vial IVPUSH 12/29/24 16:37 15 mg ONCE STA Administration Levofloxacin 500 mg 12/29/24 21:56 12/29/24 22:16 Levofloxacin 500 Mg Tablet PO 12/29/24 21:57 500 mg ONCE ONE Administration Metoclopramide HCl 10 mg 12/29/24 16:16 12/29/24 17:09 Metoclopramide Hcl 10 Mg/2 Ml Vial IVPUSH 12/29/24 16:17 10 mg ONCE STA Administration Metronidazole 500 mg 12/29/24 21:56 12/29/24 22:16 Metronidazole 500 Mg Tablet PO 12/29/24 21:57 500 mg ONCE ONE Administration Midazolam HCl 2 mg 12/29/24 17:22 12/29/24 17:33 Midazolam Hcl 2 Mg/2 Ml Vial IVPUSH 12/29/24 17:23 2 mg ONCE ONE Administration Medical Decision Making Medical Decision Making MDM Narrative: 29-year-old female female with a past medical history of anxiety, GERD, vertigo, migraines, somatoform disorder who presents to the emergency department evaluation of abdominal pain, nausea, vomiting, fever, stiff neck, headache and diarrhea. Patient states for the last 2 days she has had too numerous to count episodes of diarrhea. She describes the diarrhea as large volume, watery with no blood. She is also complaining of abdominal pain and points to her right lower quadrant when asked to localize the pain. The pain is a constant, cramping pain which is 8/10 at its worst. Patient complains of constant nausea, has been able to drink fluids but he has had several episodes of vomiting during the past 2 days. She states she has a history of migraine headaches in his had a severe headache for 2 days which she describes as a pressure-like pain located throughout her entire head. She states she has had neck pain for months but she states that her neck pain is gotten worse over the last 2 days as well. Patient states she took Imodium and this stopped her diarrhea.Patient states that 2 months prior she had a staph infection of her nose and was treated with antibiotics. She does not remember the name of the antibiotic but does not remember its name. Vital signs revealed elevated heart rate otherwise unremarkable. Physical examination revealed no nuchal rigidity, no temporal area tenderness, moderate right lower quadrant tenderness otherwise unremarkable. Differential diagnosis: ?Includes but is not limited to viral syndrome, viral gastroenteritis, appendicitis, pancreatitis, diverticulitis, ovarian cyst, electrolyte abnormalities, anemia, COVID-19, influenza, RSV Course: 16:38 My independent interpretation patient's laboratory evaluation is as follows: WBC was normal 4900. Potassium low 3.1. AST elevated 38. COVID-19, influenza, RSV negative. Urinalysis positive for leukocyte esterase. Microscopic revealed 11-20 WBCs, 4+ bacteria, 6-10 squamous cells-the patient is asymptomatic and I do not think she has a urinary tract infection this is most likely a non clean catch specimen. The patient's presentation is consistent with a viral syndrome, she may possibly have C diff since she was on antibiotics with the last 2 months therefore I did order a C diff PCR panel. I do not think that the patient has a bacterial meningitis, it is possible that she could have a viral meningitis but I think this is less likely given her exam. I ordered normal saline IV x1 L, Reglan 10 mg IV, Benadryl 50 mg IV and Toradol 15 mg IV. Given her right lower quadrant tenderness I did order a CT scan with IV and oral contrast given her low BMI. Admission/Observation Consideration of admission/observation: Escalation of care including admission/observation considered Lab Data 12/29/24 14:26 12/29/24 14:26 Labs: Lab Results 12/29/24 12/29/24 Range/Units 14:26 18:34 WBC 4.9 (4.8-10.8) X10*3/uL RBC 4.21 (4.20-5.50) X10*6/uL Hgb 12.3 (12.0-16.0) g/dl Hct 37.7 (37.0-47.0) % MCV 89.5 (80.0-98.0) fL MCH 29.2 (27.0-33.0) pg MCHC 32.6 (31.0-35.0) g/dl RDW 12.6 (11.0-16.0) % Plt Count 254 (160-400) X10*3/uL MPV 9.0 L (9.4-12.3) fL Immature Gran % (Auto) 0.2 (0.0-0.4) % Neut % (Auto) 75.1 H (45-73) % Lymph % (Auto) 15.7 L (20-40) % [place] % (Auto) 8.2 (2-11) % Eos % (Auto) 0.4 (0-4) % Baso % (Auto) 0.4 (0-2) % Lymph # (Auto) 0.8 L (1.2-4.9) X10*3/uL [place] # (Auto) 0.4 (0.1-1.2) X10*3/uL Eos # (Auto) 0.0 (0.0-0.4) X10*3/uL Baso # (Auto) 0.0 (0.0-0.2) X10*3/uL Abs Immat Gran (auto) 0.01 (0.00-0.03) X10*3/uL Absolute Neuts (auto) 3.7 (2.0-8.3) x10*3/uL Absolute Nucleated RBC 0.000 (0.0-0.012) X10*3/uL Nucleated RBC % (auto) 0.0 (0.0-0.2) /100WBC Sodium 138 (135-145) mmol/L Potassium 3.1 L D (3.3-5.1) mmol/L Chloride 105 (96-108) mmol/L Carbon Dioxide 25 (22-29) mmol/L Anion Gap 11 L (12-20) BUN 7 L (9-16) mg/dL Creatinine 0.78 (0.5-1.4) mg/dL Estim Creat Clear Calc 97.8 Estimated GFR > 60 Random Glucose 92 (60-115) mg/dL Calcium 8.6 D (8.4-10.2) mg/dL Magnesium 2.1 (1.6-2.6) mg/dL Total Bilirubin 0.3 (0.0-1.0) mg/dL Direct Bilirubin 0.1 (0.0-0.5) mg/dL AST 38 H (5-31) U/L ALT 30 (0-31) U/L Alkaline Phosphatase 83 (39-117) U/L Total Protein 7.7 (6.5-8.0) g/dL Albumin 4.4 (3.5-5.0) g/dL Lipase 16 (8-78) U/L Beta HCG, Quant < 2 mIU/mL Urine Color Dark Yellow Urine Appearance Cloudy Urine pH 6.0 (5.0-9.0) Ur Specific [place] 1.020 (1.005-1.025) Urine Protein Trace (Neg-Trace) mg/dL Urine Glucose (UA) Negative (Negative) mg/dL Urine Ketones Trace (Negative) mg/dL Urine Blood Negative (Negative) Urine Nitrite Negative (Negative) Ur Leukocyte Esterase Trace H (Negative) Urine RBC 0-2 (0-2) /HPF Urine WBC 11-20 H (0-5) /HPF Ur Squamous Epith Cells 6-10 (0-2) /HPF Urine Bacteria 4+ (None Seen) Hyaline Casts 0-2 (0-2) /LPF Stl C. cayetanensis PCR Not Detected (Not Detect.) Stool Rotavirus A PCR Not Detected (Not Detect.) Stl Adenov F 40/41 PCR Not Detected (Not Detect.) Stool Astrovirus (PCR) Not Detected (Not Detect.) Stool Campylobacter PCR Not Detected (Not Detect.) Stool Cryptosporidium PCR Not Detected (Not Detect.) Stl Sh Tox Pr E STEC PCR Not Detected (Not Detect.) Stool E coli O157 PCR Not applicable (Not Detect.) Stl Enterotoxigenic E PCR Not Detected (Not Detect.) Stool EPEC (PCR) Not Detected (Not Detect.) Stool EAEC (PCR) Not Detected (Not Detect.) Stl E. histolytica PCR Not Detected (Not Detect.) Stool Giardia Lamblia PCR Not Detected (Not Detect.) Stl P. shigelloides PCR Not Detected (Not Detect.) Stool Salmonella PCR Detected A (Not Detect.) Stool Sapovirus (PCR) Not Detected (Not Detect.) Stl Shigella/EIEC PCR Not Detected (Not Detect.) St Y.enterocolitica PCR Not Detected (Not Detect.) Stool Vibrio (PCR) Not Detected (Not Detect.) Stl Vibrio cholerae PCR Not Detected (Not Detect.) Stl Norovirus GI/GII PCR Not Detected (Not Detect.) C. difficile Tox B Gene NEGATIVE (Negative) Influenza Type A (PCR) NEGATIVE (Negative) Influenza Type B (PCR) NEGATIVE (Negative) RSV RNA Qual (PCR) NEGATIVE (Negative) SARS-CoV-2 RNA (RT-PCR) NEGATIVE (Negative) Radiology Impression Discussion of test interpretation with radiology: I have reviewed the radiologist's reading. Radiologist Impression: CT abdomen and pelvis with contrast Comparison: None provided Findings: No consolidation or effusion. The liver, gallbladder, spleen, pancreas, kidneys and adrenal glands are normal in appearance. No bowel obstruction, pneumoperitoneum, or pneumatosis. Normal appendix. Uterus and adnexa are unremarkable. Small volume free fluid in the pelvis. Segmental areas of wall thickening involving the descending colon, sigmoid colon and rectum. No small bowel wall thickening. No acute fracture. IMPRESSION: Multifocal segmental areas of wall thickening in the distal colon and rectum concerning for infectious or inflammatory colitis. This document has been electronically signed by: Goran Garsia MD on 12/29/2024 20:14:30 Dictated By: Goran Garsia MD Discharge Plan Discharge Clinical Impression: Colitis, Abdominal pain, Diarrhea Patient Disposition: Home, Self-Care Instructions: Colitis (ED) Additional Instructions: Your laboratory evaluation revealed a slightly low potassium otherwise was unremarkable. Your COVID-19, influenza and RSV tests were negative. Your urine did have white blood cells, squamous and bacteria but I do not think that you have a urine infection. The lab will try to grow bacteria out of your urine and if you grow a significant bacteria in the emergency department contact you. The antibiotics that I am putting you on however would treat most urine infections. The CT scan of your abdomen pelvis with IV and oral contrast revealed a normal appendix Gale's reassuring. You do have inflammation and thickening of the wall of the descending/sigmoid colon which is consistent with colitis. This can sometimes be caused by a viral infection or bacterial infection. Given the amount of diarrhea that your having and your pain, I am treating you for possible bacterial infection. Take Levaquin (levofloxacin) 500 mg pills, 1 pill once a day for 5 days. You were given your 1st dose here in the emergency department. Take your next dose tomorrow evening. Take Flagyl (metronidazole) 500 mg pills, 1 pill 3 times a day (every 6 hours) for 5 days. You were given your 1st dose here in the emergency department. Take your next dose tomorrow morning when you get your prescriptions filled. Take Zofran ODT 4 mg pills, 1 pill dissolved in your mouth every 8 hours as needed for nausea and vomiting. Take ibuprofen 200 mg pills, 2 pills every 6 hours as needed for pain or fever. Take Tylenol (acetaminophen) 500 mg pills, 2 pills every 6 hours as needed for pain or fever. For the next 24 hours, stay on a GEETA diet (bananas, rice, applesauce, tea and toast). Follow-up with your doctor in 2 days. Please return to the emergency department if your symptoms get worse or if you develop any symptoms that are concerning to you. Prescriptions: New metronidazole 500 mg tablet 500 mg PO TID 5 Days Qty: 15 0RF levofloxacin 500 mg tablet 500 mg PO DAILY 5 Days Qty: 5 0RF ondansetron 4 mg tablet,disintegrating 4 mg PO Q6-8H PRN (Reason: nausea and vomiting) Qty: 14 0RF No Action gabapentin 300 mg capsule 300 mg PO Q8H Qty: 90 0RF cyanocobalamin (vitamin B-12) 500 mcg tablet 500 mcg PO DAILY 30 Days Qty: 30 6RF lansoprazole 30 mg capsule,delayed release(DR/EC) 30 mg PO DAILY Qty: 30 3RF montelukast [Singulair] 10 mg tablet 10 mg PO BEDTIME Qty: 30 0RF albuterol sulfate 90 mcg/actuation HFA aerosol inhaler 1 inh inhalation QID PRN (Reason: shortness of breath or wheezing) Qty: 6.7 1RF loratadine 10 mg Tablet 10 mg PO DAILY magnesium 250 mg tablet 250 mg PO BEDTIME cholecalciferol (vitamin D3) 50 mcg (2,000 unit) capsule 50 mcg PO DAILY hydroxyzine HCl 25 mg tablet 25 mg PO BEDTIME Qty: 90 3RF clonazepam 0.5 mg tablet 0.5 mg PO BID PRN (Reason: anxiety, panic attacks) Qty: 30 0RF riboflavin (vitamin B2) 100 mg capsule PO Stand Alone Forms: Work/School Release Interventions: ED Discharge Assessment Last Done: 12/29/24 22:22 Discharge Date/Time: 12/29/24 22:34 Print Language: Czech
[2024-12-29 14:37] LABS: MANUAL DIFF FLAG NO
[2024-12-29 14:40] LABS: Appearance Urine Cloudy; Basophils Percent Auto 0.4 % (0-2); Color Urine Dark Yellow; Eosinophils Percent Auto 0.4 % (0-4); Glucose Urine UA Negative (Negative); Hematocrit 37.7 % (37.0-47.0); Hemoglobin 12.3 g/dl (12.0-16.0); Imm Gran Abs Auto 0.01 X10*3/uL (0.00-0.03); Imm Gran Pct Auto 0.2 % (0.0-0.4); Leukocyte Esterase Urine Trace (Negative); Lymphocytes Absolute Auto 0.8 X10*3/uL (1.2-4.9); Lymphocytes Percent Auto 15.7 % (20-40); Mean Corpuscular HGB Conc 32.6 g/dl (31.0-35.0); Mean Corpuscular Hemoglobin 29.2 pg (27.0-33.0); Mean Corpuscular Volume 89.5 fL (80.0-98.0); Monocytes Absolute Auto 0.4 X10*3/uL (0.1-1.2); Monocytes Percent Auto 8.2 % (2-11); Neutrophils Absolute Auto 3.7 x10*3/uL (2.0-8.3); Neutrophils Percent Auto 75.1 % (45-73); Nitrite Urine Negative (Negative); Platelet Count 254 X10*3/uL (160-400); Red Blood Count 4.21 X10*6/uL (4.20-5.50); Red Cell Distribution Width 12.6 % (11.0-16.0); UMIC TRIGGER UACC YES; Urine Blood Negative (Negative); Urine Ketones Trace mg/dL (Negative); Urine Protein Trace mg/dL (Neg-Trace); White Blood Count 4.9 X10*3/uL (4.8-10.8)
[2024-12-29 14:42] LABS: Bacteria Urine 4+ (None Seen); Hyaline Casts Urine 0-2 /LPF (0-2); RBC Urine 0-2 /HPF (0-2); UACC Culture Trigger YES
[2024-12-29 14:53] LABS: Alanine Aminotransferase 30 U/L (0-31); Albumin Level 4.4 g/dL (3.5-5.0); Alkaline Phosphatase 83 U/L (39-117); Anion Gap 11 (12-20); Aspartate Amino Transferase 38 U/L (5-31); Bilirubin Direct 0.1 mg/dL (0.0-0.5); Bilirubin Total 0.3 mg/dL (0.0-1.0); Blood Urea Nitrogen 7 mg/dL (9-16); Calcium 8.6 mg/dL (8.4-10.2); Carbon Dioxide 25 mmol/L (22-29); Chloride 105 mmol/L (96-108); Creatinine Clr Calc Pharmacy 97.8; Estimated Glomerular Filt Rate > 60; Glucose Random 92 mg/dL (60-115); Lipase 16 U/L (8-78); Magnesium 2.1 mg/dL (1.6-2.6); Potassium 3.1 mmol/L (3.3-5.1); Sodium 138 mmol/L (135-145); Total Protein 7.7 g/dL (6.5-8.0)
[2024-12-29 15:00] LABS: HCG Quantitative < 2 mIU/mL
[2024-12-29 15:15] LABS: Influenza A PCR NEGATIVE (Negative); Influenza B PCR NEGATIVE (Negative); Resp Syncy Virus RNA Qual PCR NEGATIVE (Negative); SARS COV2 PCR INHOUSE NEGATIVE (Negative)
--- OUTSIDE RECORDS SUMMARY | 2024-12-29 16:19 | XMS_ITS | Data Portability ---
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 Follow up: As needed [email or web address] Not available 09/07/2024 10:35:42 Plan of Treatment [...] audio gram No observ ation record ed. [email or web address] Not Available 08/13 10:38:37 Result Notes None recorded. Problems Name Problem SNOMED Code Status Onset Date Resolution Date Notes Provider Name and Address Organization Details Recorded Time Sensorine ural hearing loss of bilateral ears 657025036 Active 2017 Sensorineu ral hearing loss, bilateral; Note: Date Diagnosed: 02/08/2018 2:56 PM (H90.3) Not Available [facility] 4 02:41:27 Refractor y migraine 229435800 Active 2017 Other migraine, intractabl e, without status migrainosu s; Note: Date Diagnosed: 02/08/2018 3:04 PM (G43.819) Not Available [facility] 4 02:41:24 Chronic pharyngit is 999142 Active 2016 Chronic sore throat; Note: Date Diagnosed: 08/18/2016 12:20 PM (J31.2) Not Available [facility] 4 02:41:31 Dizziness and giddiness 920528650 Active 2017 Dizziness and giddiness; Note: Date Diagnosed: 02/08/2018 3:04 PM (R42) Not Available [facility] 4 02:41:28 Neurologi saskia symptom 318106117 Active 2020 Other symptoms and signs involving the nervous system; Note: Date Diagnosed: 12/19/2020 4:56 PM (R29.818) Not Available [facility] 4 02:41:25 Generaliz ed anxiety disorder 73330200 Active 2020 Generalize d anxiety disorder; Note: Date Diagnosed: 08/08/2020 9:48 AM (F41.1) Not Available [facility] 4 02:41:23 M ni re's disease 07581980 Active 2017 Meniere's disease, right ear; Note: Date Diagnosed: 03/03/2018 5:11 PM (H81.01) Not Available [facility] 4 02:41:29 Gastroeso phageal reflux disease without esophagit is 023791795 Active 2016 Gastro-eso phageal reflux disease without esophagiti s; Note: Date Diagnosed: 08/18/2016 12:25 PM (K21.9) Not Available [facility] 4 02:41:23 Vertigo of central origin 53289035 Active 2023 Vertigo of central origin; Note: Date Diagnosed: 08/31/2023 2:43 PM (H81.4) Not Available [facility] 4 02:41:28 Problem Notes None recorded. [...] dose pack 09/07 completed Medicati on ID: [id number] D uration Value: 6 Brand Name: Medrol (Ion) Se nd Method: E-Prescr ibed Sub s Allowed: subs OK Speci al Instruct ion: Take 1 pack as directed Medicat ionGener icName: Medrol (Ion) Not Available Not Available Not Available prednison e 20 mg tablet 03/03 completed Medicati on ID: [id number] P rescribe d By Name: Jude Pacheco nd Name: [...] elayed release 02/08 completed Medicati on ID: [id number] D uration Value: 30 Reason: () Brand Name: omeprazo le Send Method: E-Prescr ibed Sub s Allowed: subs OK Speci al Instruct ion: TAKE 1 CAPSULE EVERY DAY Medi cationGe nericNam e: omeprazo le Not Available Not Available Not Available alprazola m 0.25 mg tablet 09/07 completed Medicati on ID: [id number] D uration Value: 10 Brand Name: alprazol [...] mg tablet 09/07 completed Medicati on ID: [id number] B rand Name: lorazepa m Send Method: [...] by mouth 08/08 completed Medicati on ID: [id number] P rescribe d By Name: Jude Pacheco nd Name: [...] Available Xanax 02/08 completed Medicati on ID: [id number] R krystina: () Brand Name: xanax Se nd Method: E-Prescr ibed Sub s Allowed: subs OK Medic ationGen ericName : xanax Not Available Not Available Not Available Nexium 24HR 20 mg tablet,de layed release 09/07 completed Medicati on ID: [id number] B rand Name: Nexium 24HR Sen d [...] SNOMED-CT Code Diagnosis ICD10 Code Diagnosis Note [id number] DOMENIC TOWNSEND MD [facility] [address] [address] 09/07/2024 09:48:51 09/07/2024 10:36:51 Cochlear prosthesis in situ [id number] Z96.21 Patient is likely due to get a new processor. This should be covered by her insurance as her current processor has been deemed obsolete and is no longer repairable . I have asked patient's mother to contact [employer] to initiate the process for getting a new processor. In the meantime they will follow-up with the [facility] Cochlear Implant Program for mapping and device troublesho oting. Refractory migraine [id number] G43.819 Vertigo of central origin 31043468 H81.4 Neurological symptom [id number] R29.818 Health Concerns Section Related Observation LastModified by Organization Detai ls LastModified Time None Recorded Concern Status LastModified by Organization Details LastModified Time None Recorded Advance Directives Directive None Recorded Payers Insurance Date Sequence Insurance Name Policy Number Policy Dumont Covered Member ID Dumont Member ID Guarantor Name 09/07/2024 1 [employer] [facility] [id number] Lashay Martel [id number] Lashay Martel 09/07/2024 1 [facility] [id number] Lashay Martel [id number] Lashay Martel Notes Date Note Type Note Provider Name and Address Organization Details Recorded Time 09/07/2024 text/html 29-year-old fema cande who had right sided cochlear implant placed in 2000 when she was 6 years old. Patient has had chronic issues with headaches, brain fog, brain zaps and intermittent dizziness over the years. She has also had intermittent BPPV. We have discussed how her dizziness and head pain symptoms are likely related to migraine, vestibular migraine, and possibly M ni re's disease. She is working with a neurologist for her headaches, and will be starting Emgality shots tomorrow. At her last visit I provided her with information regarding identification and limitation of migraine triggers, and recommended she continue to work with her neurologist in this regard.. She did not really read the information I provided her.Patient is working with the [facility] Cochlear Implant Program for mapping and device maintenance. Her current processor is about 8 years old and is starting to fail. They just needed to get a new coil because it broke. She comes in today accompanied by her mother DOMENIC TOWNSEND MD [address] [place] [address], [phone], [facility] - [facility] 09/07/2024 10:37:12 OBGyn Episode No OBEpisode recorded.
[2024-12-29] MEDS: Acetaminophen 325 MG TABLET 975 MG PO (17:08)
[2024-12-29] MEDS: 0.9 % Sodium Chloride 1,000 ML 999 ML IV (17:08)
[2024-12-29] MEDS: diphenhydrAMINE HCL 50 MG/ML VIAL IVPUSH (17:09)
[2024-12-29] MEDS: Metoclopramide HCl 10 MG/2 ML VIAL IVPUSH (17:09)
[2024-12-29] MEDS: Ketorolac Tromethamine 15 MG/ML VIAL IVPUSH (17:09)
[2024-12-29 17:17] VITALS: BP 132/79; PULSE 124; RESP 16; TEMP 36.7; O2SAT 100
[2024-12-29] MEDS: Midazolam HCl 2 MG/2 ML VIAL IVPUSH (17:33)
[2024-12-29 18:00] VITALS: BP 128/74; PULSE 66; RESP 16; TEMP 37.1; O2SAT 100
[2024-12-29] MEDS: Diatrizoate Meglumine, Sodium 30 ML SOLUTION PO (19:01)
[2024-12-29] MEDS: iohexoL 350 MG/ML 100 ML INFUS..BTL IV (19:01)
[2024-12-29 20:00] VITALS: BP 107/64; PULSE 91; RESP 16; TEMP 37.1; O2SAT 99
[2024-12-29 20:09] LABS: CDiff Gene PCR NEGATIVE (Negative)
[2024-12-29 22:00] VITALS: BP 119/73; PULSE 100; RESP 15; TEMP 36.7; O2SAT 98
[2024-12-29] MEDS: levoFLOXacin 500 MG TABLET PO (22:16)
[2024-12-29] MEDS: metroNIDAZOLE 500 MG TABLET PO (22:16)
[2024-12-29 22:22] VITALS: BP 119/73; PULSE 100; RESP 15; TEMP 36.7; O2SAT 98
[2024-12-30 09:41] LABS: Adenovirus F 40/41 Not Detected (Not Detect.); Astrovirus Not Detected (Not Detect.); Campylobacter Not Detected (Not Detect.); Cryptosporidium Not Detected (Not Detect.); Cyclospora cayetanensis Not Detected (Not Detect.); E. coli EAEC Not Detected (Not Detect.); E. coli EPEC Not Detected (Not Detect.); E. coli ETEC Not Detected (Not Detect.); E. coli STEC Not Detected (Not Detect.); Entamoeba histolytica Not Detected (Not Detect.); Giardia lamblia Not Detected (Not Detect.); Norovirus GI/GII Not Detected (Not Detect.); Plesiomonas shigelloides Not Detected (Not Detect.); Rotavirus A Not Detected (Not Detect.); Sapovirus Not Detected (Not Detect.); Shigella sp./EIEC Not Detected (Not Detect.); Vibrio Not Detected (Not Detect.); Vibrio Cholerae Not Detected (Not Detect.); Yersinia enterocolitica Not Detected (Not Detect.)
[2024-12-30 10:17] LABS: Salmonella Detected (Not Detect.)
== END 2024-12-29 22:34 | disposition home or self-care (01) ==
PROVIDERS: Physician Assistant; Emergency Provider Emergency Medicine Emergency Medical Services
DX: K52.9 Noninfective gastroenteritis and colitis, unspecified (principal); R11.2 Nausea with vomiting, unspecified; R10.2 Pelvic and perineal pain; M54.2 Cervicalgia; R50.9 Fever, unspecified; R25.2 Cramp and spasm; Z03.818 Encounter for observation for suspected exposure to other biological agents ruled out; Z79.899 Other long term (current) drug therapy
CPT/HCPCS: 0241U; 36415; 74177; 80048; 80076; 81001; 83690; 83735; 84702; 85025; 87086; 87493; 87507; 96361; 96374; 96375; 99284; J1200; J1885; J2250; J2765; Q9967

== ENCOUNTER → 2024-12-29 16:19 | Outpatient (BNV) | payer BC, SELFPAY | PROVIDERS: Emergency Provider Emergency Medicine Emergency Medical Services; Visit Provider Radiology Diagnostic Radiology | DX: K63.89 Other specified diseases of intestine (principal) | CPT/HCPCS: 74177 ==

== ENCOUNTER 2024-12-31 09:49 | Emergency (ER) | payer BC, SELFPAY ==
[2024-12-31 09:56] VITALS: BP 109/76; PULSE 93; RESP 18; TEMP 36.9; O2SAT 100; BMI 21.8
--- NOTE | 2024-12-31 10:02 | ED_ITS ---
HPI - General Adult General Chief complaint: Abdominal Pain Stated complaint: possible food poisoning Time Seen by Provider: 12/31/24 10:02 Source: patient, RN notes reviewed and old records reviewed Mode of arrival: ambulatory Limitations: no limitations History of Present Illness ED Provider: Ankit PEÑA narrative: Patient is a 29-year-old female with history of severe anxiety, GERD, vertigo, migraines, somatoform disorder presenting to the emergency department with complaint of epigastric/right upper quadrant abdominal pain, headache and neck pain and stiffness. Recently seen here on 12/29/2024 for abdominal pain, nausea, vomiting, fever, stiff neck, headache and diarrhea and was discharged on levofloxacin and Flagyl. Yesterday her GI panel came back positive for salmonella. She was contacted with these results via telephone. States she has had continued nausea but denies any vomiting and has been able to tolerate fluids as well as her antibiotics. Reports 1 episode of darker, tarry stool and expresses concern for GI bleeding. (Has photo with her.) Also reports that she has been doing her own research online and would like to rule out Salmonella meningitis. Reports headache and neck pain improved with Tylenol and ibuprofen at home, and is declining medications for her headache and neck pain here at this time. MD complaint: abdominal pain Onset (ago): day(s) Related Data Home Medications ?Medication ?Instructions ?Recorded ?Confirmed loratadine 10 mg tablet 10 mg PO DAILY 08/03/2004/05 cholecalciferol (vitamin D3) 50 50 mcg PO DAILY 07/20/24 mcg (2,000 unit) capsule magnesium 250 mg tablet 250 mg PO BEDTIME 04/22/22 0 07/20/24 riboflavin (vitamin B2) 100 mg mg PO 10/31/24 capsule Previous Rx's ?Medication ?Instructions ?Recorded clonazepam 0.5 mg tablet 0.5 mg PO BID PRN anxiety, p anic 07/18/24 attacks #30 tabs hydroxyzine HCl 25 mg tablet 25 mg PO BEDTIME #90 tabs 07/18/24 gabapentin 300 mg capsule 300 mg PO Q8H #90 caps 07/28 cyanocobalamin (vitamin B-12) 500 500 mcg PO DAILY 30 days #30 tabs 08/02/24 mcg tablet lansoprazole 30 mg capsule,delayed 30 mg PO DAILY #30 caps 12/10/24 release albuterol sulfate 90 mcg/actuation 1 inh inhalation QI D PRN shortness 12/18/24 aerosol inhaler of breath or wheezing #6.7 g shruthi montelukast 10 mg tablet 10 mg PO BEDTIME #30 tabs (Singulair) levofloxacin 500 mg tablet 500 mg PO DAILY 5 days #5 t abs 12/29/24 metronidazole 500 mg tablet 500 mg PO TID 5 days #15 t abs 12/29/24 ondansetron 4 mg disintegrating 4 mg PO Q6-8H PRN naus ea and 12/29/24 tablet vomiting #14 tabs Allergies Allergy/AdvReac Type Severity Reaction Status Date / Time cephalexin Allergy Severe Difficulty Verified 12/31/24 09:59 Breathing Penicillins Allergy Unknown Verified 12/31/24 09:59 prednisone AdvReac Anxiety Verified 12/31/24 09:59 Review of Systems 2 Review of Systems: As per HPI Yes all other systems are reviewed and are negative Constitutional: Constitutional: Reports as per HPI PMFSH Past Medical History Medical History Abnormal findings on esophagogastroduodenoscopy (EGD) Alcohol use disorder Epigastric abdominal pain ROMY (generalized anxiety disorder) Acute bronchitis Open wound of right knee Cellulitis of buttock, left Cochlear implant in place Encounter to establish care Panic attacks Severe anxiety Anxiety Surgical History History of esophagogastroduodenoscopy No pertinent past surgical history Family History Family History (Updated 10/31/24 @ 10:15 by RAFIA Sweeney) Father BP (high blood pressure) Mother Breast cancer Other Mental health disorder Social History Social History (Updated 10/31/24 @ 10:15 by RAFIA Sweeney) Household Members: Family Housing: Condominium Do you presently have visiting nurse or other home services: No Alcohol intake: current Alcohol intake frequency: a few times a month Patient Tobacco Use Status: Never used Tobacco Smoked in Last 30 Days: No Use of substances other than those prescribed or required for medical reasons: No Advance Directives: No Advance Directives Information Provided: No Do you have a plan to hurt others: No Plan service: No 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al status: employed 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 [place] Cognitive needs: No Hearing needs: Yes (right ear hearing aids) Vision needs: No Physical Exam ED Vital Signs: Vital Signs - 24 hr 12/31/24 09:56 Temperature 98.5 F Pulse Rate 93 Respiratory Rate 18 Blood Pressure 109/76 Pulse Oximetry 100 Oxygen Delivery Method Room Air BMI result Body Mass Index 21.8 Vital signs have been reviewed and appear to be correct. Blood pressure normal. Heart rate normal. Respiratory rate normal. Temperature normal. Oxygen saturation normal. Const General: cooperative, healthy appearing and no acute distress Orientation/consciousness: oriented to person, oriented to place, oriented to time and patient oriented x3 Limitations: no limitations HENMT Head: Yes normocephalic, Yes atraumatic and No Temporal artery tenderness present Ears: external ears normal General nose exam: Normal external nose present Face and sinus: Yes face symmetric Mouth: oropharynx normal and moist mucous membranes Throat: Yes uvula midline Eyes Pupils: Equal, round and reactive pupils present Neck Other: no nuchal rigidity Neck: Yes normal visual inspection, Yes full ROM, Yes no meningeal signs, Yes trachea midline and Yes supple Resp Effort & Inspection: normal respiratory effort and able to speak in complete sentences Auscultation: clear to auscultation bilaterally Cardio Rate: regular rate Rhythm: regular rhythm Heart sounds: S1 normal heart sound present and S2 normal heart sound present GI Palpation (GI): Soft to palpation, Tenderness to palpation present (GI) in the epigastrum and in the RLQ (mild); Nieto's sign negative and with no rebound tenderness and no guarding Auscultation: normoactive bowel sounds General: Yes no CVA tenderness Back/Spine/Pelvis Back: no CVA tenderness Skin General skin exam: elasticity normal and turgor normal Neuro General: oriented to person, oriented to place, oriented to time, patient oriented x3, gait normal, tone normal, moves all extremities, Normal light touch and pain sensation, no meningeal signs, no focal motor deficits, CN's II-XI intact bilaterally and deep tendon reflexes 2+ bilaterally Cranial nerves: Yes Equal, round and reactive pupils present Cognition (Neuro): normal cognition Motor exam (neuro): 5/5 motor strength present throughout, Normal motor muscle tone present throughout and Motor abnormalities not present Extrem General: Yes full ROM, Yes no pedal edema and Yes no calf tenderness Psych Mental Status: mental status grossly normal Affect: normal affect Thought process: Normal thought process present Medications Administered Discontinued Medications Generic Name Dose Route Start Last Admin Trade Name Frank PRN Reason Stop Dose Admin Clonazepam 0.5 mg 12/31/24 12:04 12/31/24 12:08 Clonazepam 0.5 Mg Tablet PO 12/31/24 12:05 0.5 mg ONCE ONE Administration Medical Decision Making Medical Decision Making [facility] Narrative: Patient is a 29-year-old female with history of severe anxiety, GERD, vertigo, migraines, somatoform disorder presenting to the emergency department with complaint of epigastric/right upper quadrant abdominal pain, headache and neck pain and stiffness. On exam patient is awake, A+Ox3, VS WNL, afebrile, normal neurological exam without focal deficits, physical exam findings as above. Given reported symptoms and physical exam findings, initial differential includes but is not limited to salmonella colitis, know side effects of antibiotics, cervical strain, tension headache. No red flag findings concerning for meningitis, Urine culture from 12/29 visit is without growth, do not suspect UTI. Labs notable for no leukocytosis, no significant drop in H&H, no significant electrolyte abnormalities, normal lactic. Reassured patient that based on her physical exam findings, vital signs and lab results, that she does not have symptoms consistent with meningitis. Also discussed with patient that she does not meet sepsis criteria. Through shared decision making, patient agrees that a repeat CT abdomen/pelvis is not indicated at this time. Advised patient to follow up with primary care provider this week. Return precautions discussed. Advised patient to ensure adequate fluid intake with fluids containing electrolytes. Patient verbalized understanding of and agreement with plan. Differential Diagnosis Differential Diagnoses: The differential diagnosis associated with the presentation includes as per [facility] Admission/Observation Consideration of admission/observation: Escalation of care including admission/observation considered Patient would have been admitted to the hospital had their work up had any findings where hospital admission was appropriate and their clinical presentation warranted hospital admission. Lab Data [facility] Lab Attestation statement: I reviewed the patient's lab results. as per [facility] 12/31/24 11:54 12/31/24 11:54 Labs: Lab Results 12/31/24 Range/Units 11:54 WBC 6.2 (4.8-10.8) X10*3/uL RBC 4.04 L (4.20-5.50) X10*6/uL Hgb 11.9 L (12.0-16.0) g/dl Hct 34.1 L (37.0-47.0) % MCV 84.4 D (80.0-98.0) fL MCH 29.5 (27.0-33.0) pg MCHC 34.9 (31.0-35.0) g/dl RDW 12.5 (11.0-16.0) % Plt Count 267 (160-400) X10*3/uL MPV 8.6 L (9.4-12.3) fL Immature Gran % (Auto) 0.2 (0.0-0.4) % Neut % (Auto) 71.7 (45-73) % Lymph % (Auto) 18.0 L (20-40) % Phelps % (Auto) 8.5 (2-11) % Eos % (Auto) 1.4 (0-4) % Baso % (Auto) 0.2 (0-2) % Lymph # (Auto) 1.1 L (1.2-4.9) X10*3/uL Phelps # (Auto) 0.5 (0.1-1.2) X10*3/uL Eos # (Auto) 0.1 (0.0-0.4) X10*3/uL Baso # (Auto) 0.0 (0.0-0.2) X10*3/uL Abs Immat Gran (auto) 0.01 (0.00-0.03) X10*3/uL Absolute Neuts (auto) 4.5 (2.0-8.3) x10*3/uL Absolute Nucleated RBC 0.000 (0.0-0.012) X10*3/uL Nucleated RBC % (auto) 0.0 (0.0-0.2) /100WBC Sodium 142 (135-145) mmol/L Potassium 4.1 D (3.3-5.1) mmol/L Chloride 107 (96-108) mmol/L Carbon Dioxide 26 (22-29) mmol/L Anion Gap 13 (12-20) BUN 4 L (9-16) mg/dL Creatinine 0.71 (0.5-1.4) mg/dL Estim Creat Clear Calc 107.4 Estimated GFR > 60 Random Glucose 91 (60-115) mg/dL Lactic Acid 1.0 (0.5-2.0) mmol/L Calcium 9.6 D (8.4-10.2) mg/dL Magnesium 2.1 (1.6-2.6) mg/dL Total Bilirubin 0.2 (0.0-1.0) mg/dL AST 38 H (5-31) U/L ALT 28 (0-31) U/L Alkaline Phosphatase 70 (39-117) U/L Total Protein 7.5 (6.5-8.0) g/dL Albumin 4.4 (3.5-5.0) g/dL Lipase 35 (8-78) U/L Beta HCG, Quant < 2 mIU/mL External Record Review External record reviewed: Inpatient record, Office record and Outpatient record Discharge Plan Discharge Clinical Impression: Abdominal pain Patient Disposition: Home, Self-Care Instructions: Salmonella Infection (ED), Acute Abdominal Pain (ED), Abdominal Pain (ED) Additional Instructions: You were evaluated in the emergency department today for abdominal pain in the setting of a known salmonella infection. Your labs were reassuring and your vital signs were normal, you do not have signs of sepsis or meningitis. You should complete the full courses of antibiotics prescribed to you. Be sure to drink plenty of fluids with electrolytes such as pedialyte, Gatorade, etc. Follow up with your primary care provider tomorrow. Return to the emergency department if you develop fever 100.4 or greater, are unable to tolerate your antibiotics due to vomiting, ongoing episodes of dark, tarry stool, bright red blood in your stool, or any other new or concerning symptoms. Prescriptions: No Action gabapentin 300 mg capsule 300 mg PO Q8H Qty: 90 0RF cyanocobalamin (vitamin B-12) 500 mcg tablet 500 mcg PO DAILY 30 Days Qty: 30 6RF lansoprazole 30 mg capsule,delayed release(DR/EC) 30 mg PO DAILY Qty: 30 3RF montelukast [Singulair] 10 mg tablet 10 mg PO BEDTIME Qty: 30 0RF albuterol sulfate 90 mcg/actuation HFA aerosol inhaler 1 inh inhalation QID PRN (Reason: shortness of breath or wheezing) Qty: 6.7 1RF loratadine 10 mg Tablet 10 mg PO DAILY metronidazole 500 mg tablet 500 mg PO TID 5 Days Qty: 15 0RF levofloxacin 500 mg tablet 500 mg PO DAILY 5 Days Qty: 5 0RF ondansetron 4 mg tablet,disintegrating 4 mg PO Q6-8H PRN (Reason: nausea and vomiting) Qty: 14 0RF magnesium 250 mg tablet 250 mg PO BEDTIME cholecalciferol (vitamin D3) 50 mcg (2,000 unit) capsule 50 mcg PO DAILY hydroxyzine HCl 25 mg tablet 25 mg PO BEDTIME Qty: 90 3RF clonazepam 0.5 mg tablet 0.5 mg PO BID PRN (Reason: anxiety, panic attacks) Qty: 30 0RF riboflavin (vitamin B2) 100 mg capsule PO Print Language: Sami
--- NOTE | 2024-12-31 10:04 | PC.NURSE ---
Addendum entered by Jaylyn Nichols RN 12/31/24 10:23: Patient is a 29 yo female who presents with continued right sided abdominal pain. Had brief chest pain after taking her abx which has since subsided. Patient was evalualted on the and patient states was diagnosed with salmonella. Discharge on abx. Lungs clear bilat. Respirations even and non-labored. Abdomen soft, with positive bowel sounds. Patient c/o right sided abdominal pain. Family at the bedside. Addendum entered by Jaylyn Nichols RN 12/31/24 10:19: CT perfromed on the showed Multifocal segmental areas of wall thickening in the distal colon and rectum concerning for infectious or inflammatory colitis. Original Note: Medical History Abnormal findings on esophagogastroduodenoscopy (EGD) Alcohol use disorder Epigastric abdominal pain ROMY (generalized anxiety disorder) Acute bronchitis Open wound of right knee Cellulitis of buttock, left Cochlear implant in place Encounter to establish care Panic attacks Severe anxiety Anxiety
[2024-12-31 12:01] LABS: MANUAL DIFF FLAG NO
[2024-12-31 12:03] LABS: Basophils Percent Auto 0.2 % (0-2); Eosinophils Absolute Auto 0.1 X10*3/uL (0.0-0.4); Eosinophils Percent Auto 1.4 % (0-4); Hematocrit 34.1 % (37.0-47.0); Hemoglobin 11.9 g/dl (12.0-16.0); Imm Gran Abs Auto 0.01 X10*3/uL (0.00-0.03); Imm Gran Pct Auto 0.2 % (0.0-0.4); Lymphocytes Absolute Auto 1.1 X10*3/uL (1.2-4.9); Mean Corpuscular HGB Conc 34.9 g/dl (31.0-35.0); Mean Corpuscular Hemoglobin 29.5 pg (27.0-33.0); Mean Corpuscular Volume 84.4 fL (80.0-98.0); Mean Platelet Volume 8.6 fL (9.4-12.3); Monocytes Absolute Auto 0.5 X10*3/uL (0.1-1.2); Monocytes Percent Auto 8.5 % (2-11); Neutrophils Absolute Auto 4.5 x10*3/uL (2.0-8.3); Neutrophils Percent Auto 71.7 % (45-73); Platelet Count 267 X10*3/uL (160-400); Red Blood Count 4.04 X10*6/uL (4.20-5.50); Red Cell Distribution Width 12.5 % (11.0-16.0); White Blood Count 6.2 X10*3/uL (4.8-10.8)
[2024-12-31] MEDS: clonazePAM 0.5 MG TABLET PO (12:08)
[2024-12-31 12:18] LABS: Alanine Aminotransferase 28 U/L (0-31); Albumin Level 4.4 g/dL (3.5-5.0); Alkaline Phosphatase 70 U/L (39-117); Anion Gap 13 (12-20); Aspartate Amino Transferase 38 U/L (5-31); Bilirubin Total 0.2 mg/dL (0.0-1.0); Blood Urea Nitrogen 4 mg/dL (9-16); Calcium 9.6 mg/dL (8.4-10.2); Carbon Dioxide 26 mmol/L (22-29); Chloride 107 mmol/L (96-108); Creatinine Clr Calc Pharmacy 107.4; Estimated Glomerular Filt Rate > 60; Glucose Random 91 mg/dL (60-115); Lipase 35 U/L (8-78); Magnesium 2.1 mg/dL (1.6-2.6); Potassium 4.1 mmol/L (3.3-5.1); Sodium 142 mmol/L (135-145); Total Protein 7.5 g/dL (6.5-8.0)
[2024-12-31 12:27] LABS: HCG Quantitative < 2 mIU/mL
[2024-12-31 12:51] VITALS: BP 109/76; PULSE 93; RESP 18; TEMP 36.9; O2SAT 100
== END 2024-12-31 13:01 | disposition home or self-care (01) ==
PROVIDERS: Registered Nurse Emergency; Emergency Provider Emergency Medicine; PCP Internal Medicine
DX: R10.2 Pelvic and perineal pain (principal); R10.13 Epigastric pain; R10.11 Right upper quadrant pain; R51.9 Headache, unspecified; M54.2 Cervicalgia; Z79.899 Other long term (current) drug therapy
CPT/HCPCS: 36415; 80053; 83605; 83690; 83735; 84702; 85025; 99284

== ENCOUNTER 2025-01-04 09:57 | Outpatient (REF) | payer BC, SELFPAY ==
[2025-01-04 12:55] LABS: MANUAL DIFF FLAG NO
[2025-01-04 14:22] LABS: Basophils Percent Auto 0.4 % (0-2); Eosinophils Absolute Auto 0.1 X10*3/uL (0.0-0.4); Eosinophils Percent Auto 1.3 % (0-4); Hematocrit 35.5 % (37.0-47.0); Hemoglobin 11.9 g/dl (12.0-16.0); Imm Gran Abs Auto 0.04 X10*3/uL (0.00-0.03); Imm Gran Pct Auto 0.6 % (0.0-0.4); Lymphocytes Absolute Auto 1.7 X10*3/uL (1.2-4.9); Lymphocytes Percent Auto 25.8 % (20-40); Mean Corpuscular HGB Conc 33.5 g/dl (31.0-35.0); Mean Corpuscular Volume 86.6 fL (80.0-98.0); Mean Platelet Volume 8.9 fL (9.4-12.3); Monocytes Absolute Auto 0.5 X10*3/uL (0.1-1.2); Monocytes Percent Auto 7.4 % (2-11); Neutrophils Absolute Auto 4.4 x10*3/uL (2.0-8.3); Neutrophils Percent Auto 64.5 % (45-73); Platelet Count 381 X10*3/uL (160-400); Red Cell Distribution Width 12.9 % (11.0-16.0); White Blood Count 6.8 X10*3/uL (4.8-10.8)
[2025-01-04 14:28] LABS: Appearance Urine Clear; Color Urine Yellow; Glucose Urine UA Negative (Negative); Leukocyte Esterase Urine Negative (Negative); Nitrite Urine Negative (Negative); PH 6.5 (5.0-9.0); Specific Gravity - Urine <= 1.005 (1.005-1.025); Urine Blood Negative (Negative); Urine Ketones Negative (Negative); Urine Protein Negative (Neg-Trace)
[2025-01-04 15:01] LABS: Alanine Aminotransferase 30 U/L (0-31); Albumin Level 4.2 g/dL (3.5-5.0); Alkaline Phosphatase 57 U/L (39-117); Anion Gap 11 (12-20); Aspartate Amino Transferase 31 U/L (5-31); Bilirubin Total 0.3 mg/dL (0.0-1.0); Blood Urea Nitrogen 5 mg/dL (9-16); Calcium 8.8 mg/dL (8.4-10.2); Carbon Dioxide 24 mmol/L (22-29); Chloride 106 mmol/L (96-108); Estimated Glomerular Filt Rate > 60; Glucose Random 75 mg/dL (60-115); Magnesium 2.3 mg/dL (1.6-2.6); Potassium 3.5 mmol/L (3.3-5.1); Sodium 137 mmol/L (135-145)
[2025-01-04 18:57] LABS: CDiff Gene PCR NEGATIVE (Negative)
[2025-01-05 10:15] LABS: Adenovirus F 40/41 Not Detected (Not Detect.); Astrovirus Not Detected (Not Detect.); Campylobacter Not Detected (Not Detect.); Cryptosporidium Not Detected (Not Detect.); Cyclospora cayetanensis Not Detected (Not Detect.); E. coli EAEC Not Detected (Not Detect.); E. coli EPEC Not Detected (Not Detect.); E. coli ETEC Not Detected (Not Detect.); E. coli STEC Not Detected (Not Detect.); Entamoeba histolytica Not Detected (Not Detect.); Giardia lamblia Not Detected (Not Detect.); Norovirus GI/GII Not Detected (Not Detect.); Plesiomonas shigelloides Not Detected (Not Detect.); Rotavirus A Not Detected (Not Detect.); Salmonella Not Detected (Not Detect.); Sapovirus Not Detected (Not Detect.); Shigella sp./EIEC Not Detected (Not Detect.); Vibrio Not Detected (Not Detect.); Vibrio Cholerae Not Detected (Not Detect.); Yersinia enterocolitica Not Detected (Not Detect.)
== END 2025-01-04 09:58 | disposition home or self-care (01) ==
LOC: HO.LAB 09:57
PROVIDERS: PCP Internal Medicine; Visit Provider Physician Assistant Medical
DX: Z00.00 Encounter for general adult medical examination without abnormal findings (principal); R10.30 Lower abdominal pain, unspecified; A02.9 Salmonella infection, unspecified; K52.9 Noninfective gastroenteritis and colitis, unspecified; D64.9 Anemia, unspecified; I95.9 Hypotension, unspecified; F41.9 Anxiety disorder, unspecified; Z13.31 Encounter for screening for depression
CPT/HCPCS: 36415; 80053; 81003; 83735; 85025; 87338; 87493; 87507; 96127

== ENCOUNTER 2025-01-04 09:57 | Outpatient (AMB) | payer BC, SELFPAY ==
--- NOTE | 2025-01-04 10:02 | A.OFFPC_ITS ---
Vital Signs 01/04/25 10:07 Height 5 ft 5.35 in Weight 135 lb BMI 22.2 BP 99/56 L Respiration 14 Pulse 94 Pulse Source Pulse Oximeter Temp 97.6 F Temp Source Temporal Artery Scan Pulse Oximetry (%) 99 Oxygen Delivery Method Room Air Intake Visit Reasons: black stools and low blood pressure Application Support Intern Required: No Accompanied by: Self / Same As Patient Allergies cephalexin Allergy (Severe, Verified 01/04/25 10:34) Difficulty Breathing Penicillins Allergy (Verified 01/04/25 10:34) Unknown prednisone Adverse Reaction (Verified 01/04/25 10:34) Anxiety Medication List - Last Reconciled 01/04/25 by Monet Langston PA-C albuterol sulfate 90 mcg/actuation 1 inh inhalation QID PRN cholecalciferol (vitamin D3) 50 mcg PO DAILY clonazepam 0.5 mg PO BID PRN cyanocobalamin (vitamin B-12) 500 mcg PO DAILY 30 days gabapentin 300 mg PO Q8H hydroxyzine HCl 25 mg PO BEDTIME lansoprazole 30 mg PO DAILY loratadine 10 mg PO DAILY magnesium 250 mg PO BEDTIME montelukast (Singulair) 10 mg PO BEDTIME Tobacco use date assessed: 10/31/24 Dental Screening Dental Screen Date: 10/31/24 HPI black stools and low blood pressure HPI Details The patient is a 29-year-old female presenting with black stools and low blood pressure. She visited the emergency room on Wednesday due to severe abdominal pain and a fever of 101?F, which subsided with ibuprofen. A stool sample confirmed salmonella infection, and a CT scan revealed colitis with inflammation in the colon. The patient experienced worsening symptoms on Wednesday, including dropping blood pressure and increased heart rate, prompting a return to the emergency room. Despite concerns about black stools, the emergency room was too busy to provide a thorough evaluation, leading to a follow-up with her primary care provider. Her blood pressure typically runs low, around 110/70 mmHg, but has been as low as 98/68 mmHg recently. She reports feeling lightheaded, likely due to antibiotics, and has been on metronidazole and levofloxacin for five days. The patient has been adhering to a bland diet, including crackers, bananas, applesauce, and bone broth, to manage nausea. She denies any burning sensation during urination but reports pressure when urinating. The patient expresses anxiety about potential contamination and infection risks from her hospital stay, particularly concerning C. difficile infection. Social History - Current nutritional intake: Adheres to a bland diet including crackers, bananas, applesauce, and bone broth to manage nausea. [facility] Medical History (Updated 01/04/25 @ 10:41 by Monet Langston PA-C) Hypotension Anemia Salmonella Abnormal findings on esophagogastroduodenoscopy (EGD) Alcohol use disorder Epigastric abdominal pain ROMY (generalized anxiety disorder) Acute bronchitis Open wound of right knee Cellulitis of buttock, left Cochlear implant in place Encounter to establish care Panic attacks Severe anxiety Anxiety Surgical History History of esophagogastroduodenoscopy No pertinent past surgical history Family History Father BP (high blood pressure) Mother Breast cancer Other Mental health disorder Social History Household Members: Family [facility] Do you presently have visiting nurse or other home services: No Alcohol intake: current Alcohol intake frequency: a few times a month Patient Tobacco Use Status: Never used Tobacco service: No 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al status: employed 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 Cognitive needs: No Hearing needs: Yes (right ear hearing aids) Vision needs: No Questionnaire PHQ-9 Over the last 2 weeks, how often have you been bothered by any of the following problems? 1. Little interest or pleasure in doing things: not at all 2. Feeling down, depressed, or hopeless: not at all 3. Trouble falling or staying asleep, or sleeping too much: not at all 4. Feeling tired or having little energy: not at all 5. Poor appetite or overeating: not at all 6. Feeling bad about yourself - or that you are a failure or have let yourself or your family down: not at all 7. Trouble concentrating on things, such as reading the newspaper or watching television: not at all 8. Moving or speaking so slowly that other people could have noticed. Or the opposite - being so fidgety or restless that you have been moving around a lot more than usual: not at all 9. Thoughts that you would be better off or of hurting yourself in some way: not at all Total score: 0 Depression Screening Interpretation: Negative Depression Screening Done: Yes 97210 - PHQ-9 Billing: Yes Source: Developed by Drs. Spencer Gimenez, Rosanne Gonzalez, Boaz Ford and colleagues, with an educational jose r from [employer]. Thrive Questionnaire Date Thrive assessed: 10/31/24 I am a: Patient What is your living situation today?: I have a steady place to live Within the past 12 months, did the food you bought not last and you didn't have the money to get more?: Never true Within the past 12 months, did you worry whether your food would run out before you got money to buy more?: Never true Do you have trouble paying for medicines?: No Do you have trouble getting transportation to medical appointments?: No Do you have trouble paying your heating and electricity bill?: No Do you have trouble taking care of your child, family member or friend?: No Do you have trouble with day-to-day activities such as bathing, preparing meals, shopping, managing finances, etc.?: No Are you currently unemployed and looking for a job?: No Are you interested in more education?: No Please select the resources that you would like help with: None THRIVE Score: 0 AUDIT C Alcohol Use Questionnaire (AUDIT-C) 1. How often do you have a drink containing alcohol?: 2-4 times a month 2. How many drinks containing alcohol do you have on a typical day when you are drinking?: 1 or 2 3. How often do you have six or more drinks on one occasion?: Never Total Score: 2 Score Reviewed/Action Taken: No ROMY-7 AMB Questionnaire ROYM-7 Date ROMY - 7 assessed: 10/31/24 Feeling nervous, anxious, or on edge: 1 = Several days Not being able to stop or control worryin = Several days Worrying too much about different things: 1 = Several days Trouble relaxin = Several days Being so restless that it is hard to sit still: 0 = Not at all Becoming easily annoyed or irritable: 0 = Not at all Feeling afraid as if something awful might happen: 1 = Several days Total ROMY-7 score (0-4 normal; 5-9 mild; 10-14 moderate; 15-21 severe): 5 Source: Developed by Drs. Spencer Gimenez, Rosanne Gonzalez, Boaz Ford and colleagues, with an educational jose r from [employer]. ROMY-7 Assessment Billing ROMY-7 Assessment Tool: ROMY-7 Assessment 23417 Review of Systems Const Details: - Gastrointestinal: Reports severe abdominal pain, nausea, black stools, and diarrhea. Denies bloody stools. - Cardiovascular: Reports low blood pressure and increased heart rate. Denies chest pain. - Genitourinary: Denies burning sensation during urination but reports pressure when urinating. - Neurological: Reports lightheadedness. - General: Reports fever of 101?F, which subsided with ibuprofen. Physical exam (Primary Care) Vital Signs: Last Vital Signs Temp 97.6 F 01/04/25 10:07 Pulse 94 01/04/25 10:07 Resp 14 01/04/25 10:07 BP 99/56 L 01/04/25 10:07 Pulse Ox 99 01/04/25 10:07 Oxygen Delivery Method Room Air 01/04/25 10:07 Care Plan Goal for BP management: <140/90 BMI result Body Mass Index 22.2 normal bmi Tobacco/Smoking Status: Tobacco use Status Tobacco use date assessed 10/31/24 01/04/25 10:11 Patient Tobacco Use Status Never used Tobacco 01/04/25 10:11 e-Cigarette/Vaping Use Never Used 08/03/24 08:30 PHQ-9: PHQ-9 Score PHQ-9: Total score 0 01/04/25 10:11 Depression Screening Interpretation: Negative Thrive Assessment: Date of Thrive Assessment Date Thrive assessed 10/31/24 01/04/25 10:11 Const Other: Appearance: Alert. Oriented X3. No acute distress. Head: Normal external exam. Normocephalic. Atraumatic. Eyes: Pupils are equal, round, and reactive to light. Extraocular movements intact. Conjunctiva and sclera normal. Eyelids normal. Throat: Pharynx normal. Uvula midline. Moist mucous membranes. Neck: Normal inspection. Neck supple. Full range of motion. Cardiovascular: Normal heart rate and rhythm. Respiratory: No respiratory distress. Painless inspiration. Back: Full range of motion noted. Skin: Skin warm and dry. Normal skin color. Normal skin turgor. No rashes/lesions/lacerations noted. Extremities: Extremities exhibit normal range of motion. Neuro: Oriented X 3. No motor deficit. No sensory deficit. Reflexes normal. Results Reviewed Results Reviewed: - Labs: Stool sample confirmed salmonella infection. Blood work showed anemia. - Imaging: CT scan revealed colitis with inflammation in the colon. Coding Level of Care Code Est Pt Level 4 (75585) Complex EM visit Add On G2211 Diagnoses Abdominal pain R10.30 Abdominal location: lower abdomen, unspecified Salmonella A02.9 Colitis K52.9 Anemia D64.9 Hypotension I95.9 Anxiety F41.9 Additional Codes PHQ-9 - 51217 - PHQ-9 Billing: Yes ([id number]) ROMY-7 Assessment Billing - ROMY-7 Assessment Tool: ROMY-7 Assessment 07592 ([id number]) Assessment & Plan Assessment & Plan (1) Abdominal pain: Code(s): R10.9 - Unspecified abdominal pain Category: Medical Qualifiers: Abdominal location: lower abdomen, unspecified Qualified Code(s): R10.30 - Lower abdominal pain, unspecified (2) Salmonella: Code(s): A02.9 - Salmonella infection, unspecified Category: Medical Plan: The patient was diagnosed with salmonella infection confirmed by stool sample. She was treated with metronidazole and levofloxacin for five days. A follow-up stool culture is planned to assess resolution of the infection. (3) Colitis: Code(s): K52.9 - Noninfective gastroenteritis and colitis, unspecified Category: Medical Plan: Colitis was identified via CT scan, showing inflammation in the colon. The patient is advised to maintain a bland diet to manage symptoms and avoid further irritation. (4) Anemia: Code(s): D64.9 - Anemia, unspecified Category: Medical Plan: Anemia was noted in the blood work, and further blood tests are planned to monitor hemoglobin levels. (5) Hypotension: Code(s): I95.9 - Hypotension, unspecified Category: Medical Plan: The patient's hypotension is being monitored, with blood pressure readings typically low but stable for her baseline. No immediate intervention is required unless symptomatic hypotension occurs. (6) Anxiety: Code(s): F41.9 - Anxiety disorder, unspecified Category: Medical Plan: The patient expresses anxiety related to potential infection risks and contamination from her hospital stay. Reassurance was provided, and no additional treatment for anxiety was deemed necessary at this time. Plan Plan Patient was informed and verbally consented to the use of an ambient scribe for clinic note documentation during this visit. 1. Salmonella Infection The patient was diagnosed with salmonella infection confirmed by stool sample. She was treated with metronidazole and levofloxacin for five days. A follow-up stool culture is planned to assess resolution of the infection. 2. Colitis Colitis was identified via CT scan, showing inflammation in the colon. The patient is advised to maintain a bland diet to manage symptoms and avoid further irritation. 3. Anemia Anemia was noted in the blood work, and further blood tests are planned to monitor hemoglobin levels. 4. Hypotension The patient's hypotension is being monitored, with blood pressure readings typically low but stable for her baseline. No immediate intervention is required unless symptomatic hypotension occurs. 5. Anxiety The patient expresses anxiety related to potential infection risks and contamination from her hospital stay. Reassurance was provided, and no additional treatment for anxiety was deemed necessary at this time. I discussed with the patient the diagnosis of salmonella infection and colitis, explaining the treatment plan involving antibiotics and dietary modifications. We reviewed the need for follow-up blood work and stool culture to monitor recov kaleigh and ensure no further complications. I reassured the patient regarding her anxiety about potential infections and contamination, emphasizing the precautions taken during her hospital stay. Orders: Orders Complete Blood Count Auto Diff Today Z00.00 - Encounter for general adult medical examination without abnormal findings Comprehensive Met. Panel Today Z00.00 - Encounter for general adult medical examination without abnormal findings Magnesium Today Z00.00 - Encounter for general adult medical examination without abnormal findings GI Panel Today R10.30 - Lower abdominal pain, unspecified CDiff Gene PCR Today R10.9 - Unspecified abdominal pain UA CC w/rflx Micro + Cult Today R10.30 - Lower abdominal pain, unspecified H pylori Ag Stool Today R10.30 - Lower abdominal pain, unspecified Patient Instructions: - Follow a bland diet including crackers, bananas, applesauce, and bone broth to manage nausea. - Complete follow-up blood work and stool culture as instructed. - Monitor blood pressure and report any symptoms of dizziness or lightheadedness. - Contact the office if symptoms worsen or new symptoms develop.
[2025-01-04 10:07] VITALS: BP 99/56; PULSE 94; RESP 14; TEMP 36.4; O2SAT 99; BMI 22.2
--- OUTSIDE RECORDS SUMMARY | 2025-01-04 11:26 | XMS_ITS | Data Portability ---
Author Organization [place] - [facility], Allergy Address [address] [address] Care Team Providers Care Design Assistant Name Role Phone SALEEM CAPUTO Primary Care [...] to read at home, which gives a [id number] discussion on what causes migraine and how [...] which should help. Follow up: As needed [email or web address] Not available 09/07/2024 10:35:42 Plan of Treatment [...] audio gram No observ ation record ed. [email or web address] Not Available 08/13 10:38:37 Result Notes None recorded. Problems Name Problem SNOMED Code Status Onset Date Resolution Date Notes Provider Name and Address Organization Details Recorded Time Sensorine ural hearing loss of bilateral ears 015313281 Active 2017 Sensorineu ral hearing loss, bilateral; Note: Date Diagnosed: 02/08/2018 2:56 PM (H90.3) Not Available [facility] 4 02:41:27 Refractor y migraine 808240955 Active 2017 Other migraine, intractabl e, without status migrainosu s; Note: Date Diagnosed: 02/08/2018 3:04 PM (G43.819) Not Available [facility] 4 02:41:24 Chronic pharyngit is 020749 Active 2016 Chronic sore throat; Note: Date Diagnosed: 08/18/2016 12:20 PM (J31.2) Not Available [facility] 4 02:41:31 Dizziness and giddiness 988740638 Active 2017 Dizziness and giddiness; Note: Date Diagnosed: 02/08/2018 3:04 PM (R42) Not Available [facility] 4 02:41:28 Neurologi saskia symptom 805003385 Active 2020 Other symptoms and signs involving the nervous system; Note: Date Diagnosed: 12/19/2020 4:56 PM (R29.818) Not Available [facility] 4 02:41:25 Generaliz ed anxiety disorder 27206897 Active 2020 Generalize d anxiety disorder; Note: Date Diagnosed: 08/08/2020 9:48 AM (F41.1) Not Available [facility] 4 02:41:23 M ni re's disease 19076854 Active 2017 Meniere's disease, right ear; Note: Date Diagnosed: 03/03/2018 5:11 PM (H81.01) Not Available [facility] 4 02:41:29 Gastroeso phageal reflux disease without esophagit is 288165106 Active 2016 Gastro-eso phageal reflux disease without esophagiti s; Note: Date Diagnosed: 08/18/2016 12:25 PM (K21.9) Not Available [facility] 4 02:41:23 Vertigo of central origin 38091228 Active 2023 Vertigo of central origin; Note: Date Diagnosed: 08/31/2023 2:43 PM (H81.4) Not Available [facility] 4 02:41:28 Problem Notes None [...] dose pack 09/07 completed Medicati on ID: [id number] D uration Value: 6 Brand Name: Medrol (Ion) Se nd Method: E-Prescr ibed Sub s Allowed: subs OK Speci al Instruct ion: Take 1 pack as directed Medicat ionGener icName: Medrol (Ion) Not Available Not Available Not Available prednison e 20 mg tablet 03/03 completed Medicati on ID: [id number] P rescribe d By Name: Jude Pacheco [...] elayed release 02/08 completed Medicati on ID: [id number] D uration Value: 30 Reason: () Brand Name: omeprazo le Send Method: E-Prescr ibed Sub s Allowed: subs OK Speci al Instruct ion: TAKE 1 CAPSULE EVERY DAY Medi cationGe nericNam e: omeprazo le Not Available Not Available Not Available alprazola m 0.25 mg tablet 09/07 completed Medicati on ID: [id number] D uration Value: 10 Brand Name: alprazol [...] mg tablet 09/07 completed Medicati on ID: [id number] B rand Name: lorazepa m Send Method: [...] by mouth 08/08 completed Medicati on ID: [id number] P rescribe d By Name: Jude Pacheco [...] Available Xanax 02/08 completed Medicati on ID: [id number] Laura flaherty: () Brand Name: xanax Se nd Method: E-Prescr ibed Sub s Allowed: subs OK Medic ationGen ericName : xanax Not Available Not Available Not Available Nexium 24HR 20 mg tablet,de layed release 09/07 completed Medicati on ID: [id number] B rand Name: Nexium 24HR Sen d [...] SNOMED-CT Code Diagnosis ICD10 Code Diagnosis Note [id number] DOMENIC TOWNSEND MD [facility] [address] [address] 09/07/2024 09:48:51 09/07/2024 10:36:51 Cochlear prosthesis in situ [id number] Z96.21 Patient is likely due to get a new processor. This should be covered by her insurance as her current processor has been deemed obsolete and is no longer repairable . I have asked patient's mother to contact [employer] to initiate the process for getting a new processor. In the meantime they will follow-up with the [facility] for mapping and device troublesho oting. Refractory migraine [id number] G43.819 Vertigo of central origin 04217687 H81.4 Neurological symptom 308 [id number] R29.818 Health Concerns Section Related Observation LastModified by Organization Detai ls LastModified Time None Recorded Concern Status LastModified by Organization Details LastModified Time None Recorded Advance Directives Directive None Recorded Payers Insurance Date Sequence Insurance Name Policy Number Policy Dumont Covered Member ID Dumont Member ID Guarantor Name 09/07/2024 1 [employer] [facility] [id number] Lashay Martel [id number] Lashay Martel 09/07/2024 1 [facility] [id number] Lashay Martel [id number] Lashay Martel Notes Date Note Type Note [...] I provided her.Patient is working with the [facility] for mapping and device maintenance. Her current processor is about 8 years old and is starting to fail. They just needed to get a new coil because it broke. She comes in today accompanied by her mother DOMENIC TOWNSEND MD [address] [place] [address], [place], [address], [facility] - [facility] 09/07/2024 10:37:12 OBGyn Episode No OBEpisode recorded.
== END 2025-01-04 10:40 | disposition home or self-care (01) ==
LOC: HO.HMCSH 09:57
PROVIDERS: PCP Internal Medicine; Visit Provider Physician Assistant Medical
DX: R10.30 Lower abdominal pain, unspecified (principal); A02.9 Salmonella infection, unspecified; K52.9 Noninfective gastroenteritis and colitis, unspecified; D64.9 Anemia, unspecified; I95.9 Hypotension, unspecified; F41.9 Anxiety disorder, unspecified

== ENCOUNTER 2025-01-08 15:14 | Outpatient (AMB) | payer BC, SELFPAY ==
--- NOTE | 2025-01-08 15:20 | A.OFFVIS_ITS ---
Vital Signs 01/08/25 15:28 Height 5 ft 5 in Weight 135 lb BMI 22.5 BP 120/72 Blood Pressure Location Rt brachial Position Sitting Pulse 86 Pulse Source Pulse Oximeter Pulse Oximetry (%) 100 Oxygen Delivery Method Room Air Intake Visit Reasons: FUV req. Salmonella colitis. Intake Note: Est pt for mgmt of GERD + recent colitis. Pt seen in ED ([facility] – [place]) for colitis. Imaging done. CC; C.O. black stools / hematochezia, RLQ pain, and intermittent GERD w/ mild to moderate shortness of breath. Pt still taking lansoprazole which is a new Rx within the last month, unsure of response due to the severity and persistence of these events. Pt does report completing a course of abx per the ED without any change in presentation. Pt has requested no student shadowing for this particular visit. Jde Developer Required: No Accompanied by: Self / Same As Patient Allergies cephalexin Allergy (Severe, Verified 01/08/25 15:22) Difficulty Breathing Penicillins Allergy (Verified 01/08/25 15:22) Unknown prednisone Adverse Reaction (Verified 01/08/25 15:22) Anxiety HPI HPI FUV req. Salmonella colitis.: Details: LAST VISIT: GERD (gastroesophageal reflux disease) Postprandial abdominal bloating Postprandial epigastric pain Postprandial diarrhea Constipation Plan Patient has been on omeprazole for a long time we will stop that and she will start taking Nexium in the morning and famotidine at bedtime. Will check vitamin B12, folate, D, transglutaminase CRP. Patient will return for breath test to check for H pylori. Will check thyroid study. Discussed with patient avoiding dietary triggers. Staying upright for minimum 3 hours after meals discussed with patient. We also discuss low FODMAP diet as she reports frequent bloating. We discuss that certain food cause fermentation process and if she does not move her bowels well she will have increase bloating and abdominal pain and burning. Patient will try to take fiber with pre and probiotics to see if she can regulate her bowels. If she will have trouble she will call our office to discuss. Patient will return to our office in 3 months, sooner on as needed basis. She is agreeable to this plan and verbalizes understanding of instructions. She was given the opportunity to ask questions and all questions answered. ? Thank you for allowing me to participate in her care Orders TSH reflex Free T4 08/23/24 K59.00 Vitamin B12 and Folate 08/23/24 R19.7 Vitamin D 25-OH (D2 and D3) 08/23/24 E55.9 FL upper GI w Ba Swallow 08/23/24 K21.9 Transglutaminase IgA 08/23/24 R10.9 C Reactive Protein 08/23/24 K58.9 H Pylori Breath Test 08/23/24 K21.9 New esomeprazole magnesium (Nexium) 40 mg PO DAILY 90 caps 5RF K21.9 famotidine (Pepcid) 20 mg PO BID 40 tabs 0RF K29.70 TODAY'S VISIT Patient is here today for follow-up recent ED visit. Patient was seen on for abdominal pain and diarrhea. Diagnosed on the with salmonella colitis and was placed on antibiotics. Patient seen her PCP on as she was still not feeling better. Patient reports blood in her stool. Stool study from were normal. No C diff identified on and 04 of January. Patient reports abdominal bloating. Reports melena and hematochezia. Reports dyspepsia with occasional dysphagia without odynophagia. Currently is taking lansoprazole and states that she feels like it is not really helping so much. Patient started about a month ago. Patient is reporting that it feels like it is taking a long time for her to recover from salmonella poisoning. Patient denies any fever or chills [facility] Medical History Hypotension Anemia Salmonella Abnormal findings on esophagogastroduodenoscopy (EGD) Alcohol use disorder Epigastric abdominal pain ROMY (generalized anxiety disorder) Acute bronchitis Open wound of right knee Cellulitis of buttock, left Cochlear implant in place Encounter to establish care Panic attacks Severe anxiety Anxiety Surgical History History of esophagogastroduodenoscopy No pertinent past surgical history Family History Father BP (high blood pressure) Mother Breast cancer Other Mental health disorder Social History Household Members: Family Housing: [facility] Do you presently have visiting nurse or other home services: No Alcohol intake: current Alcohol intake frequency: a few times a month Patient Tobacco Use Status: Never used Tobacco service: No 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al status: employed 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 Cognitive needs: No Hearing needs: Yes (right ear hearing aids) Vision needs: No Review of Systems Const Denies weight gain and Denies weight loss ENT Reports no additional complaints, Denies dysphagia and Denies odynophagia Card Reports no additional complaints Resp Reports no additional complaints GI Reports abdominal pain (Epigastric), Denies belching, Denies melena, Reports bloating, Denies change in bowel habits, Reports constipation, Denies dysphagia, Denies excessive flatus, Reports dyspepsia, Reports heartburn, Denies diarrhea, Reports loose stools, Reports nausea (Occasional in the morning), Denies odynophagia and Denies vomiting Reports no additional complaints Musc Reports no additional complaints Neuro Reports no additional complaints Psych Reports no additional complaints Endo Reports no additional complaints Physical Exam Vital Signs: Last Vital Signs Pulse 86 01/08/25 15:28 BP 120/72 01/08/25 15:28 Pulse Ox 100 01/08/25 15:28 Oxygen Delivery Method Room Air 01/08/25 15:28 BMI result Body Mass Index 22.5 Const General: healthy appearing, no acute distress and well developed Nutritional Appearance: well nourished Orientation/consciousness: patient oriented x3 Resp Effort & Inspection: normal respiratory effort, able to speak in complete sentences, no tracheal deviation and symmetric chest movement Auscultation: clear to auscultation bilaterally Cardio Rate: regular rate GI Inspection: Yes normal to inspection and No distended Palpation (GI): Soft to palpation, not firm, nontender and No hepatosplenomegaly present Auscultation: normal bowel sounds Rectal Exam - Female: visual inspection normal, normal sphincter tone and No External hemorrhoid(s) present General: Yes no CVA tenderness Back/Spine/Pelvis Back: no CVA tenderness Skin General skin exam: elasticity normal, turgor normal and dry skin Neuro General: patient oriented x3 Psych Appearance: grossly normal Mental Status: mental status grossly normal Results Reviewed Results Reviewed: CT SCAN OF ABDOMEN AND PELVIS 12/29/2024 Findings: No consolidation or effusion. The liver, gallbladder, spleen, pancreas, kidneys and adrenal glands are normal in appearance. No bowel obstruction, pneumoperitoneum, or pneumatosis. Normal appendix. Uterus and adnexa are unremarkable. Small volume free fluid in the pelvis. Segmental areas of wall thickening involving the descending colon, sigmoid colon and rectum. No small bowel wall thickening. No acute fracture. IMPRESSION: Multifocal segmental areas of wall thickening in the distal colon and rectum concerning for infectious or inflammatory colitis. Laboratory Tests 08/28/24 09/08/24 12/29/24 14:31 10:17 18:34 C-Reactive Protein < 0.10 Vitamin B12 564 25-OH Vitamin D Total 52 Folate 13.5 TSH 1.46 Stool Salmonella PCR Detected A Tiss Transglutamin IgA <1.0 C. difficile Tox B Gene NEGATIVE H. pylori Breath Test Negative 01/04/25 15:45 C-Reactive Protein Vitamin B12 25-OH Vitamin D Total Folate TSH Stool Salmonella PCR Not Detected Tiss Transglutamin IgA C. difficile Tox B Gene NEGATIVE H. pylori Breath Test Assessment & Plan Assessment & Plan (1) GERD (gastroesophageal reflux disease): Code(s): K21.9 - Gastro-esophageal reflux disease without esophagitis Category: Medical Qualifiers: Esophagitis presence: without esophagitis Qualified Code(s): K21.9 - Gastro-esophageal reflux disease without esophagitis (2) Abdominal pain: Code(s): R10.9 - Unspecified abdominal pain Qualifiers: Abdominal location: epigastric Qualified Code(s): R10.13 - Epigastric pain (3) Diarrhea: Code(s): R19.7 - Diarrhea, unspecified Qualifiers: Diarrhea type: functional diarrhea Qualified Code(s): K59.1 - Functional diarrhea (4) Melena: Code(s): K92.1 - Melena (5) Rectal bleed: Code(s): K62.5 - Hemorrhage of anus and rectum (6) Postprandial abdominal bloating: Code(s): R14.0 - Abdominal distension (gaseous) Plan Negative results for salmonella 4 days ago. Patient completed metronidazole and Levaquin. Continues to have diarrhea. She was encouraged to take fiber with pre and probiotics. Patient continues to have blood in her stool. Rectal exam negative for blood or Rai. Stool softeners will be giving for patient when she will feel constipated. Will send a script for Proctosol. Patient will be sent for colonoscopy and upper endoscopy. Patient was encouraged to avoid dietary triggers and late night snacking. Staying upright for minimum 3 hours after meals discussed with patient. Patient will go for CT scan as she still has abdominal pain to check if colitis resolved. Patient will be seen after the procedure, sooner on as needed basis. She is agreeable to this plan and verbalizes understanding of instructions. She was given the opportunity to ask questions and all questions answered. Thank you for allowing me to participate in her care Orders: Orders Blood Urea Nitrogen 01/08/25 R10.11 - Right upper quadrant pain Creatinine 01/08/25 R10.11 - Right upper quadrant pain CT abdomen pelvis w IV con 01/08/25 R10.9 - Unspecified abdominal pain Medications: New docusate sodium 100 mg PO DAILY 30 caps 3RF K59.00 - Constipation, unspecified bisacodyl (Dulcolax (bisacodyl)) take 4 tabs at noon the day before your colonoscopy 20 mg (4 x 5 mg) PO ONCE 4 tabs 0RF constipation 1 day Z12.11 - Encounter for screening for malignant neoplasm of colon hydrocortisone 2.5% (Proctosol HC) [address] BID-QID PRN 30 grams 2RF hemorrhoids K64.9 - Unspecified hemorrhoids polyethylene glycol 3350 (Miralax) As directed by gastroenterology department at [facility] 238 grams PO ONCE 238 grams 0RF Z12.11 - Encounter for screening for malignant neoplasm of colon Coding Level of Care Code Est Pt Level 5 (66645) Complex EM visit Add On G2211 Diagnoses Gastroesophageal reflux disease without esophagitis K21.9 Esophagitis presence: without esophagitis Epigastric pain R10.13 Abdominal location: epigastric Functional diarrhea K59.1 Diarrhea type: functional diarrhea Melena K92.1 Rectal bleed K62.5 Postprandial abdominal bloating R14.0 Time Spent (min) 50 Comment 30 minutes spent with patient and additional 20 minutes spent reviewing her records
[2025-01-08 15:28] VITALS: BP 120/72; PULSE 86; O2SAT 100; BMI 22.5
== END 2025-01-08 15:57 | disposition home or self-care (01) ==
LOC: HO.HGI 15:14
PROVIDERS: PCP Internal Medicine; Visit Provider Nurse Practitioner Family
DX: K21.9 Gastro-esophageal reflux disease without esophagitis (principal); R10.13 Epigastric pain; K59.1 Functional diarrhea; K92.1 Melena; K62.5 Hemorrhage of anus and rectum; R14.0 Abdominal distension (gaseous)
CPT/HCPCS: 99215

== ENCOUNTER 2025-01-15 16:36 | Outpatient (REF) | payer BC, SELFPAY ==
--- OUTSIDE RECORDS SUMMARY | 2025-01-15 16:38 | XMS_ITS | Data Portability ---
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 Follow up: As needed [email or web address] Not available 09/07/2024 10:35:42 Plan of Treatment [...] audio gram No observ ation record ed. [email or web address] Not Available 08/13 10:38:37 Result Notes None recorded. Problems Name Problem SNOMED Code Status Onset Date Resolution Date Notes Provider Name and Address Organization Details Recorded Time Sensorine ural hearing loss of bilateral ears 465637919 Active 2017 Sensorineu ral hearing loss, bilateral; Note: Date Diagnosed: 02/08/2018 2:56 PM (H90.3) Not Available [facility] 4 02:41:27 Refractor y migraine 929974968 Active 2017 Other migraine, intractabl e, without status migrainosu s; Note: Date Diagnosed: 02/08/2018 3:04 PM (G43.819) Not Available [facility] 4 02:41:24 Chronic pharyngit is 449478 Active 2016 Chronic sore throat; Note: Date Diagnosed: 08/18/2016 12:20 PM (J31.2) Not Available [facility] 4 02:41:31 Dizziness and giddiness 133901170 Active 2017 Dizziness and giddiness; Note: Date Diagnosed: 02/08/2018 3:04 PM (R42) Not Available [facility] 4 02:41:28 Neurologi saskia symptom 027079612 Active 2020 Other symptoms and signs involving the nervous system; Note: Date Diagnosed: 12/19/2020 4:56 PM (R29.818) Not Available [facility] 4 02:41:25 Generaliz ed anxiety disorder 97145079 Active 2020 Generalize d anxiety disorder; Note: Date Diagnosed: 08/08/2020 9:48 AM (F41.1) Not Available [facility] 4 02:41:23 M ni re's disease 47099609 Active 2017 Meniere's disease, right ear; Note: Date Diagnosed: 03/03/2018 5:11 PM (H81.01) Not Available [facility] 4 02:41:29 Gastroeso phageal reflux disease without esophagit is 940697558 Active 2016 Gastro-eso phageal reflux disease without esophagiti s; Note: Date Diagnosed: 08/18/2016 12:25 PM (K21.9) Not Available [facility] 4 02:41:23 Vertigo of central origin 82516696 Active 2023 Vertigo of central origin; Note: Date Diagnosed: 08/31/2023 2:43 PM (H81.4) Not Available [facility] 4 02:41:28 Problem Notes None recorded. Medical [...] dose pack 09/07 completed Medicati on ID: [id number] D uration Value: 6 Brand Name: Medrol (Ion) Se nd Method: E-Prescr ibed Sub s Allowed: subs OK Speci al Instruct ion: Take 1 pack as directed Medicat ionGener icName: Medrol (Ion) Not Available Not Available Not Available prednison e 20 mg tablet 03/03 completed Medicati on ID: [id number] P rescribe d By Name: Jude Pacheco [...] elayed release 02/08 completed Medicati on ID: [id number] D uration Value: 30 Reason: () Brand Name: omeprazo le Send Method: E-Prescr ibed Sub s Allowed: subs OK Speci al Instruct ion: TAKE 1 CAPSULE EVERY DAY Medi cationGe nericNam e: omeprazo le Not Available Not Available Not Available alprazola m 0.25 mg tablet 09/07 completed Medicati on ID: [id number] D uration Value: 10 Brand Name: alprazol [...] mg tablet 09/07 completed Medicati on ID: [id number] B rand Name: lorazepa m Send Method: [...] by mouth 08/08 completed Medicati on ID: [id number] P rescribe d By Name: Jude Pacheco [...] Available Xanax 02/08 completed Medicati on ID: [id number] Laura flaherty: () Brand Name: xanax Se nd Method: E-Prescr ibed Sub s Allowed: subs OK Medic ationGen ericName : xanax Not Available Not Available Not Available Nexium 24HR 20 mg tablet,de layed release 09/07 completed Medicati on ID: [id number] B rand Name: Nexium 24HR Sen d [...] SNOMED-CT Code Diagnosis ICD10 Code Diagnosis Note [id number] DOMENIC TOWNSEND MD [facility] [address] [address] 09/07/2024 09:48:51 09/07/2024 10:36:51 Cochlear prosthesis in situ [id number] Z96.21 Patient is likely due to get a new processor. This should be covered by her insurance as her current processor has been deemed obsolete and is no longer repairable . I have asked patient's mother to contact [employer] to initiate the process for getting a new processor. In the meantime they will follow-up with the [facility] for mapping and device troublesho oting. Refractory migraine [id number] G43.819 Vertigo of central origin [id number] H81.4 Neurological symptom [id number] R29.818 Health Concerns Section Related Observation LastModified by Organization Detai ls LastModified Time None Recorded Concern Status LastModified by Organization Details LastModified Time None Recorded Advance Directives Directive None Recorded Payers Insurance Date Sequence Insurance Name Policy Number Policy Dumont Covered Member ID Dumont Member ID Guarantor Name 09/07/2024 1 [employer] [facility] [id number] Lashay Martel [id number] Lashay Martel 09/07/2024 1 [facility] [id number] Lashay Martel [id number] Lashay Martel Notes Date Note Type Note [...] I provided her.Patient is working with the [facility]plant [facility] for mapping and device maintenance. Her current processor is about 8 years old and is starting to fail. They just needed to get a new coil because it broke. She comes in today accompanied by her mother DOMENIC TOWNSEND MD [address] [place] [address], [place], [address], [facility] - [facility] 09/07/2024 10:37:12 OBGyn Episode No OBEpisode recorded.
[2025-01-15 17:48] LABS: Blood Urea Nitrogen 12 mg/dL (9-16); Estimated Glomerular Filt Rate > 60
== END 2025-01-15 16:37 | disposition home or self-care (01) ==
LOC: HO.LAB 16:36
PROVIDERS: PCP Internal Medicine; Visit Provider Nurse Practitioner Family
DX: R10.11 Right upper quadrant pain (principal)
CPT/HCPCS: 36415; 82565; 84520

== ENCOUNTER 2025-01-16 13:13 | Outpatient (REF) | payer BC, SELFPAY ==
[2025-01-16 16:59] LABS: MANUAL DIFF FLAG NO
[2025-01-16 17:13] LABS: Hematocrit 36.0 % (37.0-47.0); Hemoglobin 11.8 g/dl (12.0-16.0); Imm Gran Abs Auto 0.01 X10*3/uL (0.00-0.03); Imm Gran Pct Auto 0.2 % (0.0-0.4); Lymphocytes Absolute Auto 1.7 X10*3/uL (1.2-4.9); Mean Corpuscular HGB Conc 32.8 g/dl (31.0-35.0); Mean Corpuscular Hemoglobin 28.8 pg (27.0-33.0); Mean Corpuscular Volume 87.8 fL (80.0-98.0); NRBC Abs Auto 0.000 X10*3/uL (0.0-0.012); NRBC Pct Auto 0.0 /100WBC (0.0-0.2); Platelet Count 416 X10*3/uL (160-400); Red Blood Count 4.10 X10*6/uL (4.20-5.50); White Blood Count 4.9 X10*3/uL (4.8-10.8)
[2025-01-16 17:24] LABS: Appearance Urine Clear; Glucose Urine UA Negative (Negative); PH 7.0 (5.0-9.0); Specific Gravity - Urine 1.010 (1.005-1.025)
[2025-01-16 17:38] LABS: Alanine Aminotransferase 26 U/L (0-31); Albumin Level 4.6 g/dL (3.5-5.0); Alkaline Phosphatase 63 U/L (39-117); Anion Gap 12 (12-20); Aspartate Amino Transferase 23 U/L (5-31); Blood Urea Nitrogen 9 mg/dL (9-16); Calcium 9.2 mg/dL (8.4-10.2); Carbon Dioxide 27 mmol/L (22-29); Chloride 103 mmol/L (96-108); Estimated Glomerular Filt Rate > 60; Magnesium 2.1 mg/dL (1.6-2.6); Potassium 4.3 mmol/L (3.3-5.1); Sodium 138 mmol/L (135-145); Total Protein 7.5 g/dL (6.5-8.0)
== END 2025-01-16 13:14 | disposition home or self-care (01) ==
LOC: HO.LAB 13:13
PROVIDERS: PCP Internal Medicine; Visit Provider Physician Assistant Medical
DX: D64.9 Anemia, unspecified (principal); F41.9 Anxiety disorder, unspecified; R00.1 Bradycardia, unspecified; Z13.31 Encounter for screening for depression; Z00.00 Encounter for general adult medical examination without abnormal findings; R53.83 Other fatigue
CPT/HCPCS: 36415; 80053; 81003; 83735; 85025; 85027; 93005; 96127

== ENCOUNTER 2025-01-16 13:13 | Outpatient (AMB) | payer BC, SELFPAY ==
--- NOTE | 2025-01-16 13:14 | A.OFFPC_ITS ---
Vital Signs 01/16/25 13:48 Height 5 ft 5 in Weight 135 lb 0.8 oz BMI 22.5 BP 100/50 L Blood Pressure Location Rt brachial Pulse 84 Pulse Source Pulse Oximeter Temp 98.1 F Pulse Oximetry (%) 99 Intake Visit Reasons: heart rate low Intake Note: patient stats she has been having shortness of breath and neck pain in the back, vertigo Allergies cephalexin Allergy (Severe, Verified 01/16/25 14:07) Difficulty Breathing Penicillins Allergy (Verified 01/16/25 14:07) Unknown prednisone Adverse Reaction (Verified 01/16/25 14:07) Anxiety Medication List - Last Reconciled 01/16/25 by Monet Langston PA-C albuterol sulfate 90 mcg/actuation 1 inh inhalation QID PRN bisacodyl (Dulcolax (bisacodyl)) 20 mg (4 x 5 mg) PO ONCE 1 day cholecalciferol (vitamin D3) 50 mcg PO DAILY clonazepam 0.5 mg PO BID PRN cyanocobalamin (vitamin B-12) 500 mcg PO DAILY 30 days docusate sodium 100 mg PO DAILY gabapentin 300 mg PO Q8H gabapentin 100 mg PO TID hydrocortisone 2.5% (Proctosol HC) 1 appl HI BID-QID PRN hydroxyzine HCl 25 mg PO BEDTIME lansoprazole 30 mg PO DAILY loratadine 10 mg PO DAILY magnesium 250 mg PO BEDTIME montelukast (Singulair) 10 mg PO BEDTIME polyethylene glycol 3350 (Miralax) 238 grams PO ONCE Tobacco use date assessed: 10/31/24 Dental Screening Dental Screen Date: 10/31/24 HPI heart rate low HPI Details The patient is a 29-year-old female presenting with bradycardia. She is experiencing episodes where her heart rate descends to 40 bpm, notably during periods of rest or mild activity such as walking. These episodes are accompanied by dizziness, lightheadedness, fatigue, and numbness in her legs. Her medical background includes anemia, with her most recent hemoglobin measurement at 11.9 g/dL, slightly under the normal range. The patient has a standing history of health anxiety that may amplify her concerns regarding fluctuations in her heart rate. It is pertinent to note that she has very recently recovered from a gastr ointestinal infection, validated by a negative result from a stool culture post- treatment with antibiotics. Social History - Employment: The patient has work respo nsibilities and expressed a need to return to work even when not feeling well. [facility] Medical History (Updated 01/16/25 @ 14:56 by Monet Langston PA-C) Fatigue Hypotension Anemia Salmonella Abnormal findings on esophagogastroduodenoscopy (EGD) Alcohol use disorder Epigastric abdominal pain ROMY (generalized anxiety disorder) Acute bronchitis Open wound of right knee Cellulitis of buttock, left Cochlear implant in place Encounter to establish care Panic attacks Severe anxiety Anxiety Surgical History History of esophagogastroduodenoscopy No pertinent past surgical history Family History Father BP (high blood pressure) Mother Breast cancer Other Mental health disorder Social History Household Members: Family [facility] Do you presently have visiting nurse or other home services: No Alcohol intake: current Alcohol intake frequency: a few times a month Patient Tobacco Use Status: Never used Tobacco service: No 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al status: employed 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 [place] Cognitive needs: No Hearing needs: Yes (right ear hearing aids) Vision needs: No Questionnaire PHQ-9 Over the last 2 weeks, how often have you been bothered by any of the following problems? 1. Little interest or pleasure in doing things: not at all 2. Feeling down, depressed, or hopeless: not at all 3. Trouble falling or staying asleep, or sleeping too much: not at all 4. Feeling tired or having little energy: not at all 5. Poor appetite or overeating: not at all 6. Feeling bad about yourself - or that you are a failure or have let yourself or your family down: not at all 7. Trouble concentrating on things, such as reading the newspaper or watching television: not at all 8. Moving or speaking so slowly that other people could have noticed. Or the opposite - being so fidgety or restless that you have been moving around a lot more than usual: not at all 9. Thoughts that you would be better off or of hurting yourself in some way: not at all Total score: 0 Depression Screening Interpretation: Negative Depression Screening Done: Yes 52284 - PHQ-9 Billing: Yes Source: Developed by Drs. Spencer Gimenez, Rosanne Gonzalez, Boaz Ford and colleagues, with an educational jose r from [employer]. Thrive Questionnaire Date Thrive assessed: 07/18/24 I am a: Patient What is your living situation today?: I have a steady place to live Within the past 12 months, did the food you bought not last and you didn't have the money to get more?: Never true Within the past 12 months, did you worry whether your food would run out before you got money to buy more?: Never true Do you have trouble paying for medicines?: No Do you have trouble getting transportation to medical appointments?: No Do you have trouble paying your heating and electricity bill?: No Do you have trouble taking care of your child, family member or friend?: No Do you have trouble with day-to-day activities such as bathing, preparing meals, shopping, managing finances, etc.?: No Are you currently unemployed and looking for a job?: No Are you interested in more education?: No Please select the resources that you would like help with: None THRIVE Score: 0 AUDIT C Alcohol Use Questionnaire (AUDIT-C) 1. How often do you have a drink containing alcohol?: 2-4 times a month 2. How many drinks containing alcohol do you have on a typical day when you are drinking?: 1 or 2 3. How often do you have six or more drinks on one occasion?: Never Total Score: 2 Score Reviewed/Action Taken: No ROMY-7 AMB Questionnaire ROMY-7 Date ROMY - 7 assessed: 10/31/24 Feeling nervous, anxious, or on edge: 1 = Several days Not being able to stop or control worryin = Several days Worrying too much about different things: 1 = Several days Trouble relaxin = Several days Being so restless that it is hard to sit still: 0 = Not at all Becoming easily annoyed or irritable: 0 = Not at all Feeling afraid as if something awful might happen: 1 = Several days Total ROMY-7 score (0-4 normal; 5-9 mild; 10-14 moderate; 15-21 severe): 5 Source: Developed by Drs. Spencer Gimenez, Rosanne Gonzalez, Boaz Ford and colleagues, with an educational jose r from [employer]. ROMY-7 Assessment Billing ROMY-7 Assessment Tool: ROMY-7 Assessment 84243 Review of Systems Const Details: - Cardiovascular: Reports episodes of bradycardia with heart rate dropping to 40 bpm; dizziness; lightheadedness; fatigue. Denies chest pain or palpitations. - Neurological: Reports numbness in the legs. Denies headaches or balance issues. - Gastrointestinal: Denies current diarrhea. Recently resolved gastrointestinal infection. Physical exam (Primary Care) Vital Signs: Last Vital Signs Temp 98.1 F 01/16/25 13:48 Pulse 84 01/16/25 13:48 BP 100/50 L 01/16/25 13:48 Pulse Ox 99 01/16/25 13:48 Care Plan Goal for BP management: <140/90 at Goal BMI result Body Mass Index 22.5 Tobacco/Smoking Status: Tobacco use Status Tobacco use date assessed 10/31/24 01/16/25 13:16 Patient Tobacco Use Status Never used Tobacco 01/16/25 13:16 PHQ-9: PHQ-9 Score PHQ-9: Total score 0 01/16/25 13:51 Depression Screening Interpretation: Negative Thrive Assessment: Date of Thrive Assessment Date Thrive assessed 07/18/24 01/16/25 13:16 Const Other: Appearance: Alert. Oriented X3. No acute distress. Head: Normal external exam. Normocephalic. Atraumatic. Eyes: Pupils are equal, round, and reactive to light. Extraocular movements intact. Conjunctiva and sclera normal. Eyelids normal. Ears: External auditory canal normal. Tympanic membranes normal. Throat: Pharynx normal. Uvula midline. Moist mucous membranes. Neck: Normal inspection. Neck supple. Full range of motion. No meningeal signs. No neck mass noted. Cardiovascular: Heart rate noted to be 68 bpm with normal sinus rhythm. Normal heart rate and rhythm otherwise. Heart sound normal. No murmurs noted. Pulses normal throughout. Respiratory: No respiratory distress. Painless inspiration. Breath sounds normal . No wheezes/rales/rhonchi noted. Chest nontender. No accessory muscle usage noted or decreased air movement noted. Back: Full range of motion noted. Skin: Skin warm and dry. Normal skin color. Normal skin turgor. No rashes/lesions/lacerations noted. Extremities: Extremities exhibit normal range of motion. Neuro: Oriented X 3. Moving all extremities with a normal steady gait. Office Procedures EKG Details: EKG normal sinus rhythm with a ventricular rate of 68 with a normal HI interval normal QRS duration normal QT/QTC interval. No acute ischemic change are noted. [id number]-Wtjnnyfvgfyksbxav, Complete Results Reviewed Results Reviewed: - Labs: Hemoglobin at 11.9 g/dL, slightly below normal. - Tests: Negative stool culture confirming resolution of gastrointestinal infection. Coding Level of Care Code Est Pt Level 4 (10418) Complex EM visit Add On G2211 Diagnoses Anemia D64.9 Anxiety F41.9 CPT Codes EKG - CPT: 54433-Zdsiyowsxnnavreva, Complete ([id number]) Additional Codes ROMY-7 Assessment Billing - ROMY-7 Assessment Tool: ROMY-7 Assessment 55330 ([id number]) PHQ-9 - 14937 - PHQ-9 Billing: Yes ([id number]) Assessment & Plan Assessment & Plan (1) Anemia: Code(s): D64.9 - Anemia, unspecified Category: Medical Plan: Further blood work is planned to monitor hemoglobin levels. Will reassess will continue to monitor. (2) Anxiety: Code(s): F41.9 - Anxiety disorder, unspecified Category: Medical Plan: Reassurance provided with monitoring and further evaluation as needed. Plan Plan Patient was informed and verbally consented to the use of an ambient scribe for clinic note documentation during this visit. 1. Bradycardia Episodes of bradycardia will be monitored closely; investigations include EKG, CBC, CMP, and urinalysis. The patient is advised of the importance of emergency care should symptoms worsen. 2. Anemia Further blood work is planned to monitor hemoglobin levels. 3. Health Anxiety Reassurance provided with monitoring and further evaluation as needed. 4. Previous Gastrointestinal Infection The patient recently completed a course of antibiotics for a gastrointestinal infection, with a negative stool culture confirming resolution. Probiotics were recommended to aid recovery, and the patient reported improvement in gastrointestinal symptoms. I discussed the results of the EKG with the patient, reassuring her of the normal sinus rhythm and the heart rate of 68 bpm. We considered the importance of monitoring her bradycardic episodes and recommended further blood work to rule out potential underlying causes. I emphasized the need for emergency attention if symptoms should intensify. We also discussed her anemia, agreeing on the plan to continue monitoring her hemoglobin levels, which, though low, are not currently alarming. I addressed her health anxiety by providing reassurance regarding her cardiac findings and discussed proceeding evaluation options to further manage this anxiety. Probiotics were suggested for gastrointestinal health following her recent infection resolution. Orders: Orders Complete Blood Count Auto Diff Today Z00.00 - Encounter for general adult medical examination without abnormal findings Magnesium Today Z00.00 - Encounter for general adult medical examination without abnormal findings Comprehensive Met. Panel Today Z00.00 - Encounter for general adult medical examination without abnormal findings UA CC w/rflx Micro + Cult Today R53.83 - Other fatigue Patient Instructions: - Continue with the recommended EKG and blood work. - Start probiotics to support gastrointestinal health. - Return if symptoms become severe or any new symptoms appear. - Monitor symptoms and seek emergency care if necessary.
[2025-01-16 13:48] VITALS: BP 100/50; PULSE 84; TEMP 36.7; O2SAT 99; BMI 22.5
== END 2025-01-16 14:57 | disposition home or self-care (01) ==
LOC: HO.HMCSH 13:13
PROVIDERS: PCP Internal Medicine; Visit Provider Physician Assistant Medical
DX: D64.9 Anemia, unspecified (principal); F41.9 Anxiety disorder, unspecified

== ENCOUNTER 2025-01-22 16:38 | Outpatient (REF) | payer BC, SELFPAY ==
--- OUTSIDE RECORDS SUMMARY | 2025-01-22 17:07 | XMS_ITS | Data Portability ---
Author Organization [place] - [facility], Allergy Address [address] [address] Care Team Providers Care Senior Environmental Practice Leader Name Role Phone SALEEM CAPUTO Primary Care Provider [phone] Assessment Encounter Date Assessment Date Assessment LastModified [...] to read at home, which gives a [id number] discussion on what causes migraine and how [...] which should help. Follow up: As needed [email or web address] Not available 09/07/2024 10:35:42 Plan of Treatment [...] audio gram No observ ation record ed. [email or web address] Not Available 08/13 10:38:37 Result Notes None recorded. Problems Name Problem SNOMED Code Status Onset Date Resolution Date Notes Provider Name and Address Organization Details Recorded Time Sensorine ural hearing loss of bilateral ears 981545905 Active 2017 Sensorineu ral hearing loss, bilateral; Note: Date Diagnosed: 02/08/2018 2:56 PM (H90.3) Not Available [facility] 4 02:41:27 Refractor y migraine 433760969 Active 2017 Other migraine, intractabl e, without status migrainosu s; Note: Date Diagnosed: 02/08/2018 3:04 PM (G43.819) Not Available [facility] 4 02:41:24 Chronic pharyngit is 256726 Active 2016 Chronic sore throat; Note: Date Diagnosed: 08/18/2016 12:20 PM (J31.2) Not Available [facility] 4 02:41:31 Dizziness and giddiness 000327575 Active 2017 Dizziness and giddiness; Note: Date Diagnosed: 02/08/2018 3:04 PM (R42) Not Available [facility] 4 02:41:28 Neurologi saskia symptom 232451093 Active 2020 Other symptoms and signs involving the nervous system; Note: Date Diagnosed: 12/19/2020 4:56 PM (R29.818) Not Available [facility] 4 02:41:25 Generaliz ed anxiety disorder 35825180 Active 2020 Generalize d anxiety disorder; Note: Date Diagnosed: 08/08/2020 9:48 AM (F41.1) Not Available [facility] 4 02:41:23 M ni re's disease 53704281 Active 2017 Meniere's disease, right ear; Note: Date Diagnosed: 03/03/2018 5:11 PM (H81.01) Not Available [facility] 4 02:41:29 Gastroeso phageal reflux disease without esophagit is 185625260 Active 2016 Gastro-eso phageal reflux disease without esophagiti s; Note: Date Diagnosed: 08/18/2016 12:25 PM (K21.9) Not Available [facility] 4 02:41:23 Vertigo of central origin 94336241 Active 2023 Vertigo of central origin; Note: Date Diagnosed: 08/31/2023 2:43 PM (H81.4) Not Available [facility] 4 02:41:28 Problem Notes None recorded. [...] dose pack 09/07 completed Medicati on ID: [id number] D uration Value: 6 Brand Name: Medrol (Ion) Se nd Method: E-Prescr ibed Sub s Allowed: subs OK Speci al Instruct ion: Take 1 pack as directed Medicat ionGener icName: Medrol (Ion) Not Available Not Available Not Available prednison e 20 mg tablet 03/03 completed Medicati on ID: [id number] P rescribe d By Name: Jude Pacheco [...] elayed release 02/08 completed Medicati on ID: [id number] D uration Value: 30 Reason: () Brand Name: omeprazo le Send Method: E-Prescr ibed Sub s Allowed: subs OK Speci al Instruct ion: TAKE 1 CAPSULE EVERY DAY Medi cationGe nericNam e: omeprazo le Not Available Not Available Not Available alprazola m 0.25 mg tablet 09/07 completed Medicati on ID: [id number] D uration Value: 10 Brand Name: alprazol [...] mg tablet 09/07 completed Medicati on ID: [id number] B rand Name: lorazepa m Send Method: [...] by mouth 08/08 completed Medicati on ID: [id number] P rescribe d By Name: Jude Pacheco [...] Available Xanax 02/08 completed Medicati on ID: [id number] Laura flaherty: () Brand Name: xanax Se nd Method: E-Prescr ibed Sub s Allowed: subs OK Medic ationGen ericName : xanax Not Available Not Available Not Available Nexium 24HR 20 mg tablet,de layed release 09/07 completed Medicati on ID: [id number] B rand Name: Nexium 24HR Sen d [...] SNOMED-CT Code Diagnosis ICD10 Code Diagnosis Note [id number] DOMENIC TOWNSEND MD [facility] [address] [address] 09/07/2024 09:48:51 09/07/2024 10:36:51 Cochlear prosthesis in situ [id number] Z96.21 Patient is likely due to get a new processor. This should be covered by her insurance as her current processor has been deemed obsolete and is no longer repairable . I have asked patient's mother to contact [employer] to initiate the process for getting a new processor. In the meantime they will follow-up with the [facility] Cochlear Implant Program for mapping and device troublesho oting. Refractory migraine 4238 06877 G43.819 Vertigo of central origin 51155486 H81.4 Neurological symptom 308 459103 R29.818 Health Concerns Section Related Observation LastModified by Organization Detai ls LastModified Time None Recorded Concern Status LastModified by Organization Details LastModified Time None Recorded Advance Directives Directive None Recorded Payers Insurance Date Sequence Insurance Name Policy Number Policy Dumont Covered Member ID Dumont Member ID Guarantor Name 09/07/2024 1 BC[employer]-ID [facility] [id number] Lashay Martel [id number] Lashay Martel 09/07/2024 1 [facility] [id number] Lashay Martel [id number] Lashay Martel Notes Date Note Type Note [...] I provided her.Patient is working with the [facility]chlear [facility]plant [facility] for mapping and device maintenance. Her current processor is about 8 years old and is starting to fail. They just needed to get a new coil because it broke. She comes in today accompanied by her mother DOMENIC TOWNSEND MD [address] [place] [address], [place], [address], [facility] - [facility] 09/07/2024 10:37:12 OBGyn Episode No OBEpisode recorded.
[2025-01-22 17:22] LABS: Hematocrit 34.8 % (37.0-47.0); Hemoglobin 11.8 g/dl (12.0-16.0); Mean Corpuscular HGB Conc 33.9 g/dl (31.0-35.0); Mean Corpuscular Hemoglobin 29.4 pg (27.0-33.0); Mean Corpuscular Volume 86.6 fL (80.0-98.0); NRBC Abs Auto 0.000 X10*3/uL (0.0-0.012); NRBC Pct Auto 0.0 /100WBC (0.0-0.2); Platelet Count 359 X10*3/uL (160-400); Red Blood Count 4.02 X10*6/uL (4.20-5.50); White Blood Count 5.2 X10*3/uL (4.8-10.8)
== END 2025-01-22 16:39 | disposition home or self-care (01) ==
LOC: HO.LAB 16:38
PROVIDERS: PCP Internal Medicine; Visit Provider Nurse Practitioner Family
DX: K21.9 Gastro-esophageal reflux disease without esophagitis (principal)
CPT/HCPCS: 36415; 85027

== ENCOUNTER 2025-01-31 13:22 | Outpatient (AMB) | payer BC, SELFPAY ==
--- NOTE | 2025-01-31 13:24 | A.OFFVIS_ITS ---
Vital Signs 01/31/25 13:25 Height 5 ft 5 in Weight 130 lb BMI 21.6 BP 118/70 Blood Pressure Location Rt brachial Position Sitting Pulse 100 Pulse Source Pulse Oximeter Pulse Oximetry (%) 99 Oxygen Delivery Method Room Air Intake Visit Reasons: Urgent FUV. W/L + pain Intake Note: Est pt for mgmt of chronic abd pain and unintentional W/L CC; Pt denies any changes in sx since last visit. Pt has continued losing weight and is still experiencing chronic pain. Has CT scan w/ oral contrast this afternoon. Oyster Worker Required: No Accompanied by: Self / Same As Patient Allergies cephalexin Allergy (Severe, Verified 01/16/25 14:07) Difficulty Breathing Penicillins Allergy (Verified 01/16/25 14:07) Unknown prednisone Adverse Reaction (Verified 01/16/25 14:07) Anxiety HPI HPI Urgent FUV. W/L + pain: Details: LAST VISIT GERD (gastroesophageal reflux disease) Abdominal pain Diarrhea Melena Rectal bleed Postprandial abdominal bloating Plan Negative results for salmonella 4 days ago. Patient completed metronidazole and Levaquin. Continues to have diarrhea. She was encouraged to take fiber with pre and probiotics. Patient continues to have blood in her stool. Rectal exam negative for blood or Rai. Stool softeners will be giving for patient when she will feel constipated. Will send a script for Proctosol. Patient will be sent for colonoscopy and upper endoscopy. Patient was encouraged to avoid dietary triggers and late night snacking. Staying upright for minimum 3 hours after meals discussed with patient. Patient will go for CT scan as she still has abdominal pain to check if colitis resolved. Patient will be seen after the procedure, sooner on as needed basis. She is agreeable to this plan and verbalizes understanding of instructions. She was given the opportunity to ask questions and all questions answered. ? Thank you for allowing me to participate in her care Orders Blood Urea Nitrogen 01/08/25 R10.11 Creatinine 01/08/[address] abdomen pelvis w IV con 01/08/25 R10.9 New docusate sodium 100 mg PO DAILY 30 caps 3RF K59.00 bisacodyl (Dulcolax (bisacodyl)) take 4 tabs at noon the day before your colonoscopy 20 mg (4 x 5 mg) PO ONCE 4 tabs 0RF constipation 1 day Z12.11 hydrocortisone 2.5% (Proctosol HC) 1 appl [place] BID-QID PRN 30 grams 2RF hemorrhoids K64.9 polyethylene glycol 3350 (Miralax) As directed by gastroenterology department at [facility] 238 grams PO ONCE 238 grams 0RF Z12.11 TODAY'S VISIT Patient is here today for requested visit. Patient continues to have occasional blood in his stool when having a bowel movement. Patient reports that she last weight in the past 3 weeks. Patient reports that she is worried. Her colono scopy is scheduled for February 22. Patient denies abdominal pain or discomfort, however occasionally patient will have cramping and pain when having a bowel movement. Patient denies any family history of colon cancer. Reports that her mom was just diagnosed with IBS-C. Patient denies any mucus in her stools. Denies any diarrhea. Denies any nausea or vomiting. [facility] Medical History (Updated 01/31/25 @ 20:44 by Feli Booker, [facility]) History of colitis Fatigue Hypotension Anemia Salmonella Abnormal findings on esophagogastroduodenoscopy (EGD) Alcohol use disorder Epigastric abdominal pain ROMY (generalized anxiety disorder) Acute bronchitis Open wound of right knee Cellulitis of buttock, left Cochlear implant in place Encounter to establish care Panic attacks Severe anxiety Anxiety Surgical History History of esophagogastroduodenoscopy No pertinent past surgical history Family History Father BP (high blood pressure) Mother Breast cancer Other Mental health disorder Social History Household Members: Family Housing: Condominium Do you presently have visiting nurse or other home services: No Alcohol intake: current Alcohol intake frequency: a few times a month Patient Tobacco Use Status: Never used Tobacco service: No 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al status: employed 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 Cognitive needs: No Hearing needs: Yes (right ear hearing aids) Vision needs: No Review of Systems Const Denies weight gain and Denies weight loss ENT Reports no additional complaints, Denies dysphagia and Denies odynophagia Card Reports no additional complaints Resp Reports no additional complaints GI Reports abdominal pain (Epigastric), Denies belching, Denies melena, Reports bloating, Denies change in bowel habits, Reports constipation, Denies dysphagia, Denies excessive flatus, Reports dyspepsia, Reports heartburn, Denies diarrhea, Reports loose stools, Reports nausea (Occasional in the morning), Denies odynophagia and Denies vomiting Reports no additional complaints Musc Reports no additional complaints Neuro Reports no additional complaints Psych Reports no additional complaints Endo Reports no additional complaints Physical Exam Vital Signs: Last Vital Signs Pulse 100 01/31/25 13:25 BP 118/70 01/31/25 13:25 Pulse Ox 99 01/31/25 13:25 Oxygen Delivery Method Room Air 01/31/25 13:25 BMI result Body Mass Index 21.6 Const General: healthy appearing, no acute distress and well developed Nutritional Appearance: well nourished Orientation/consciousness: patient oriented x3 Resp Effort & Inspection: normal respiratory effort, able to speak in complete sentences, no tracheal deviation and symmetric chest movement Auscultation: clear to auscultation bilaterally Cardio Rate: regular rate GI Inspection: Yes normal to inspection and No distended Palpation (GI): Soft to palpation, not firm, nontender and No hepatosplenomegaly present Auscultation: normal bowel sounds Rectal Exam - Female: visual inspection normal, normal sphincter tone and No External hemorrhoid(s) present General: Yes no CVA tenderness Back/Spine/Pelvis Back: no CVA tenderness Skin General skin exam: elasticity normal, turgor normal and dry skin Neuro General: patient oriented x3 Psych Appearance: grossly normal Mental Status: mental status grossly normal Assessment & Plan Assessment & Plan (1) GERD (gastroesophageal reflux disease): Code(s): K21.9 - Gastro-esophageal reflux disease without esophagitis Category: Medical Qualifiers: Esophagitis presence: without esophagitis Qualified Code(s): K21.9 - Gastro-esophageal reflux disease without esophagitis (2) History of colitis: Code(s): Z87.19 - Personal history of other diseases of the digestive system Category: Medical (3) IBS (irritable bowel syndrome): Code(s): K58.9 - Irritable bowel syndrome, unspecified Qualifiers: Irritable bowel syndrome type: with constipation Qualified Code(s): K58.1 - Irritable bowel syndrome with constipation (4) Constipation: Code(s): K59.00 - Constipation, unspecified Qualifiers: Constipation type: slow transit constipation Qualified Code(s): K59.01 - Slow transit constipation Plan Patient will continue taking Dulcolax daily instead of as needed. Increase fluid intake and activity to promote better bowel motility. Patient is going this afternoon for CT scan to re-evaluate if colitis has improved. Patient was encouraged to do Sitz baths and use hydrocortisone twice a day. Patient is scheduled for colonoscopy in 3 weeks. Patient is on cancellation list if anything sooner opens up. She is hemodynamically stable. Denies any nausea, vomiting, abdominal pain or discomfort. Patient will return to the office after the procedure. Patient was encouraged to call our office if she will have any GI concerning symptoms. Patient is agreeable to current plan of care and verbalizes understanding of instructions. She was given the opportunity to ask questions and all questions answered. Thank you for allowing me to participate in her care Coding Level of Care Code Est Pt Level 4 (21642) Complex EM visit Add On G2211 Diagnoses Gastroesophageal reflux disease without esophagitis K21.9 Esophagitis presence: without esophagitis History of colitis Z87.19 Irritable bowel syndrome with constipation K58.1 Irritable bowel syndrome type: with constipation Slow transit constipation K59.01 Constipation type: slow transit constipation Time Spent (min) 35 Comment 25 minutes spent with patient and additional 10 minutes spent reviewing her records
[2025-01-31 13:25] VITALS: BP 118/70; PULSE 100; O2SAT 99; BMI 21.6
--- OUTSIDE RECORDS SUMMARY | 2025-01-31 13:55 | XMS_ITS | Data Portability ---
Author Organization [place] - [facility], Allergy Address [address] [address] Care Team Providers Care Head Charrer Name Role Phone SALEEM CAPUTO Primary Care [...] to read at home, which gives a [id number] discussion on what causes migraine and how [...] which should help. Follow up: As needed [id number] Not available 09/07/2024 10:35:42 Plan of Treatment [...] audio gram No observ ation record ed. [email or web address] Not Available 08/13 10:38:37 Result Notes None recorded. Problems Name Problem SNOMED Code Status Onset Date Resolution Date Notes Provider Name and Address Organization Details Recorded Time Chronic pharyngit is 443552 Active 2016 Chronic sore throat; Note: Date Diagnosed: 08/18/2016 12:20 PM (J31.2) Not Available [facility] 4 02:41:31 Gastroeso phageal reflux disease without esophagit is 752374976 Active 2016 Gastro-eso phageal reflux disease without esophagiti s; Note: Date Diagnosed: 08/18/2016 12:25 PM (K21.9) Not Available [facility] 4 02:41:23 Sensorine ural hearing loss of bilateral ears 686123876 Active 2017 Sensorineu ral hearing loss, bilateral; Note: Date Diagnosed: 02/08/2018 2:56 PM (H90.3) Not Available [facility] 4 02:41:27 Refractor y migraine 194070862 Active 2017 Other migraine, intractabl e, without status migrainosu s; Note: Date Diagnosed: 02/08/2018 3:04 PM (G43.819) Not Available [facility] 4 02:41:24 Dizziness and giddiness 782597901 Active 2017 Dizziness and giddiness; Note: Date Diagnosed: 02/08/2018 3:04 PM (R42) Not Available [facility] 02:41:28 M ni re's disease 05249352 Active 2017 Meniere's disease, right ear; Note: Date Diagnosed: 03/03/2018 5:11 PM (H81.01) Not Available [facility] 4 02:41:29 Generaliz ed anxiety disorder 84362829 Active 2020 Generalize d anxiety disorder; Note: Date Diagnosed: 08/08/2020 9:48 AM (F41.1) Not Available [facility] 4 02:41:23 Neurologi saskia symptom 809102753 Active 2020 Other symptoms and signs involving the nervous system; Note: Date Diagnosed: 12/19/2020 4:56 PM (R29.818) Not Available [facility] 02:41:25 Vertigo of central origin 62846625 Active 2023 Vertigo of central origin; Note: Date Diagnosed: 08/31/2023 2:43 PM (H81.4) Not Available [facility] 4 02:41:28 Problem Notes None recorded. Medical [...] dose pack 09/07 completed Medicati on ID: [id number] D uration Value: 6 Brand Name: Medrol (Ion) Se nd Method: E-Prescr ibed Sub s Allowed: subs OK Speci al Instruct ion: Take 1 pack as directed Medicat ionGener icName: Medrol (Ion) Not Available Not Available Not Available prednison e 20 mg tablet 03/03 completed Medicati on ID: [id number] P rescribe d By Name: Jude Pacheco [...] elayed release 02/08 completed Medicati on ID: [id number] D uration Value: 30 Reason: () Brand Name: omeprazo le Send Method: E-Prescr ibed Sub s Allowed: subs OK Speci al Instruct ion: TAKE 1 CAPSULE EVERY DAY Medi cationGe nericNam e: omeprazo le Not Available Not Available Not Available alprazola m 0.25 mg tablet 09/07 completed Medicati on ID: [id number] D uration Value: 10 Brand Name: alprazol [...] mg tablet 09/07 completed Medicati on ID: [id number] B rand Name: lorazepa m Send Method: [...] by mouth 08/08 completed Medicati on ID: [id number] P rescribe d By Name: Jude Pacheco [...] Available Xanax 02/08 completed Medicati on ID: [id number] Laura flaherty: () Brand Name: xanax Se nd Method: E-Prescr ibed Sub s Allowed: subs OK Medic ationGen ericName : xanax Not Available Not Available Not Available Nexium 24HR 20 mg tablet,de layed release 09/07 completed Medicati on ID: [id number] B rand Name: Nexium 24HR Sen d [...] SNOMED-CT Code Diagnosis ICD10 Code Diagnosis Note [id number] DOMENIC TOWNSEND MD [facility] [address] [address] 09/07/2024 09:48:51 09/07/2024 10:36:51 Cochlear prosthesis in situ [id number] Z96.21 Patient is likely due to get a new processor. This should be covered by her insurance as her current processor has been deemed obsolete and is no longer repairable . I have asked patient's mother to contact [employer] to initiate the process for getting a new processor. In the meantime they will follow-up with the [facility] for mapping and device troublesho oting. Refractory migraine [id number] 37669 G43.819 Vertigo of central origin 28204406 H81.4 Neurological symptom 308 723110 R29.818 Health Concerns Section Related Observation LastModified by Organization Detai ls LastModified Time None Recorded Concern Status LastModified by Organization Details LastModified Time None Recorded Advance Directives Directive None Recorded Payers Insurance Date Sequence Insurance Name Policy Number Policy Dumont Covered Member ID Dumont Member ID Guarantor Name 09/07/2024 1 [employer] [facility] [id number] Lashay Martel [id number] Lashay Martel 09/07/2024 1 [facility] [id number] Lashay Martel [id number] Lashay Martel Notes Date Note Type Note [...] I provided her.Patient is working with the [facility]plant [facility] for mapping and device maintenance. Her current processor is about 8 years old and is starting to fail. They just needed to get a new coil because it broke. She comes in today accompanied by her mother DOMENIC TOWNSEND MD [address] [place] [address], [place], [address], [facility] - [facility] 09/07/2024 10:37:12 OBGyn Episode No OBEpisode recorded.
--- OUTSIDE RECORDS SUMMARY | 2025-01-31 13:55 | XMS_ITS | Clinical Summary ---
Author Organization [employer] [facility] Address [address] [employer] [address] [address] Phone Care Team Providers Care Test Driller Name Role Phone Unavailable Primary Care Provider Unavailabl e Social History Tobacco Use Types Packs/Day Years Used Date Smoking Tobacco: Never Assessed Education Answer Date Recorded Are you interested in more education? Not on edwardo e 11/07/2022 Are you concerned about learning? Not on file 11/07/2022 No 11/07/2022 No 11/07/2022 Digital Access Answer Date Recorded No 12/06/2022 No 12/06/2022 No 12/06/2022 Reliable internet access at home? Not on file 12/06/2022 Device with a working camera? Not on file Comments Unknown Sex and Gender Information Value Date Recorded Sex Assigned at Not on file Legal Sex Female 2:49 PM EDT Gender Identity Not on file Sexual Orientation Not on file Plan of Treatment Health Maintenance Due Date Last Done Comments Adult Td,Tdap Booster 1993 DEPRESSION SCREENING 2005 SMOKING Hx and SMOKELESS TOB ACCO SCREENING 2006 HEPATITIS C SCREENING 2011 HIV ONE-TIME SCREENING (18-6 5 YEARS) 2011 PAP SMEAR 2014 COVID-19 VACCINE (2023-2 5 season) 2024 HEPATITIS A VACCINES Aged Out No long er eligible based on patient's age to complete this topic HIB VACCINES Aged Out No longer eligi ble based on patient's age to complete this topic MENINGOCOCCAL VACCINES (ACWY) Aged Out No longer eligible based on patient's age to complete this topic MENINGOCOCCAL VACCINES (B) Aged Out N o longer eligible based on patient's age to complete this topic PNEUMOCOCCAL VACCINES (0-49 years) Aged Out No longer eligible based on patient's age to complete this topic Medical Devices Not on file Insurance Member Subscriber Plan / Payer (Ef fective 2024-Present) Name:Lashay Martel Relation to Subscriber:Spouse Name:CHAIM MARTEL Date of :1990 (Home) Address: [address] [place] [address] Payer ID:Not on file Type:HMO Address: [place] [id number] [place], [place] [address] [place], [place] [address] [address] HMO Additional Source Comments The information contained in this document represents components of the legal health record. It is not the complete legal health record.[facility]
== END 2025-01-31 13:52 | disposition home or self-care (01) ==
LOC: HO.HGI 13:23
PROVIDERS: PCP Internal Medicine; Visit Provider Nurse Practitioner Family
DX: K21.9 Gastro-esophageal reflux disease without esophagitis (principal); Z87.19 Personal history of other diseases of the digestive system; K58.1 Irritable bowel syndrome with constipation; K59.01 Slow transit constipation
CPT/HCPCS: 99214

== ENCOUNTER 2025-01-31 13:54 | Outpatient (REF) | payer BC, SELFPAY ==
--- NOTE | ~2025-01-31 | CT_ITS ---
EXAMINATION: CT ABDOMEN AND PELVIS WITH CONTRAST CLINICAL INFORMATION: R10.9 - Unspecified abdominal pain COMPARISON: December 29, 2024 TECHNIQUE: Multidetector volumetric images were obtained from the superior aspect of the liver through the pubic symphysis following administration 85 mL of Omnipaque 350 intravenous contrast. Sagittal and coronal reformatted images were obtained on the technologist's workstation. Oral contrast: 2 hours prior to scan This CT examination was performed using dose optimization techniques as appropriate, variously including the following: *Automated exposure control *Adjustment of mA and/or kV according to patient size (this includes techniques or standardized protocols for targeted exams where dose is matched to indication/reason for exam; i.e. extremities or head) *Use of iterative reconstruction technique DLP: 279 mGY*cm FINDINGS: LUNG BASES: The visualized lung bases are unremarkable. LIVER, GALLBLADDER, AND BILIARY TREE: The liver is normal in size, shape, and attenuation. No focal hepatic lesion or biliary ductal dilatation is present. The gallbladder is unremarkable with no evidence of radiopaque gallstones, gallbladder wall thickening, or obvious pericholecystic inflammatory changes. PANCREAS: Unremarkable. SPLEEN: Unremarkable. ADRENAL GLANDS: Unremarkable. KIDNEYS AND URETERS: 6 mm hypodensity in the anterior mid left kidney likely represents a benign simple renal cyst. It is too small to fully characterize. The kidneys are otherwise unremarkable without stones or hydronephrosis. BLADDER: Unremarkable. GASTROINTESTINAL TRACT: Multifocal rectal thickening described on the prior examination is not clearly seen on the current examination. The rectum is more distended by gas and stool on the current examination and does not appear thick-walled. There is no inflammation of the adjacent mesentery. A normal appendix is evident. ABDOMINAL WALL: No significant hernia is appreciated. LYMPH NODES: Normal. VASCULAR: Unremarkable. PELVIC VISCERA: Uterus and ovaries are visualized. There is a dominant follicle in the right ovary has a crenulated enhancing wall. OSSEOUS STRUCTURES: Unremarkable. CT/CT abdomen pelvis w IV con IMPRESSION: Previous of the focal segmental thickening of the descending colon through rectum is no longer apparent on the current examination. The bowel is better distended on the current examination. Wall thickening may have been related to nondistention. There is a mature right ovarian follicle with crenulated enhancing wall requiring no follow-up. Fleischner guidelines were followed. Electronically signed by: Troy Cano MD 01/31/2025 05:55 PM EDT
[2025-01-31] MEDS: Barium Sulfate Oral (Berry) 450 ML ORAL.SUSP 900 ML PO (17:40)
[2025-01-31] MEDS: iohexoL 350 MG/ML 100 ML INFUS..BTL IV (17:40)
== END 2025-01-31 13:55 | disposition home or self-care (01) ==
LOC: HO.CT 13:54
PROVIDERS: PCP Internal Medicine; Visit Provider Nurse Practitioner Family
DX: R10.9 Unspecified abdominal pain (principal); K21.9 Gastro-esophageal reflux disease without esophagitis; K58.1 Irritable bowel syndrome with constipation; K59.01 Slow transit constipation; Z87.19 Personal history of other diseases of the digestive system
CPT/HCPCS: 74177; Q9967

== ENCOUNTER → 2025-01-31 13:55 | Outpatient (BNV) | payer BC, SELFPAY | PROVIDERS: PCP Internal Medicine; Visit Provider Radiology Diagnostic Radiology | DX: R10.9 Unspecified abdominal pain (principal) | CPT/HCPCS: 74177 ==

== ENCOUNTER 2025-02-21 10:20 | Outpatient (REF) | payer BC, SELFPAY | END 2025-02-21 10:21 | disposition home or self-care (01) | LOC: HO.LAB 10:20 | PROVIDERS: PCP Internal Medicine; Visit Provider Internal Medicine | DX: N30.00 Acute cystitis without hematuria (principal); R30.0 Dysuria; Z13.89 Encounter for screening for other disorder | CPT/HCPCS: 81003; 87086; 87088; 87186 ==

== ENCOUNTER 2025-02-21 10:20 | Outpatient (AMB) | payer BC, SELFPAY ==
--- OUTSIDE RECORDS SUMMARY | 2025-02-17 23:59 | XMS_ITS | Continuity of Care Document ---
Author Organization [facility] Address [address] [place] [address]- [facility] Name Relationship Address Phone [...] Unknown Unavai lable Care Team Providers Care Science And Operations Officer Name Role Phone Navneet REGAN, Harshad Le Primary Care Physician Encounter [facility] Date(s): 01/18/25 - 02/17/[address] Encounter Type: Triage Allergies, Adverse Reactions, Alerts No Known Medication Allergies Immunizations Given and Recorded Vaccine Date Status Refusal Reason SARS-CoV-2 (COVID-19) mRNA-1273 vaccine 02/14/21 R ecorded SARS-CoV-2 (COVID-19) mRNA-1273 vaccine 12/04/20 R ecorded influenza virus vaccine, inactivated 1 06/19/19 Gi chuck tetanus/diphtheria/pertussis, acel(Tdap) 10/21/16 Given 1Result Comment: [facility]:[id number] Medications Claritin 5 mg oral tablet, chewable 1 tablet = 5 mg, Daily, 0 Refills, Maintenance, 08/04/19 2:58:00 PM EST Start Date: 08/04/19 Status: Ordered Repeat number: 1 Flonase 50 mcg/inh nasal spray 1 sprays, Nares, Both, 2 times a day, # 16 Gm, 0 Refills, Maintenance, 05/26/18 11:16:10 AM EST, [place], [facility]/pharmacy #[id number], 1 sprays Nares, [...] Replace Required Details, Route to Pharmacy Electronically, [facility]/pharmacy #[id number], Partial fill upon patient request if the prescription is for a schedule II opioid drug., 167, cm, 09/02/21 11:04:00 EST, Height Start Date: 09/25/21 Status: Ordered Quantity: 84.0 Unit: capsule Repeat number: 2 hydrOXYzine hydrochloride 25 mg oral tablet 1 tablet = 25 mg, By Mouth, 4 times a day, PRN as needed for anxiety, Maintenance, 11/20/24 3:45:00 PM EDT, Partial fill upon patient request if the prescription is for a schedule II opioid drug. Start Date: 11/20/24 Status: Ordered Repeat number: 1 ibuprofen 800 mg oral tablet 800 mg, 1, tablet, By Mouth, 3 times a day, PRN, # 15 tablet, Refills 0, Tot. Refills 0, Maintenance, for pain, 09/02/23 5:59:00 PM EST, Route to Pharmacy Electronically, [facility]/pharmacy #[id number], Partial fill upon patient request if the [...] Date: 06/25/21 Status: Ordered Repeat number: 1 Multivitamin 0 Refills, Maintenance, 09/02/23 2:37:00 PM [...] 5:59:00 PM EST, Route to Pharmacy Electronically, [facility]/pharmacy #[id number], Partial fill upon patient request if the prescription is for a schedule II opioid drug., 167, cm, 10/21/21 11:27:00 EDT, Height, 61.4, kg, 08/29/23 13:53:00 EST, Dry Weight Start Date: 09/02/23 Status: Ordered Quantity: 5.0 Unit: tablet Repeat number: 1 propranolol 10 mg oral tablet 10 mg, 1, tablet, By Mouth, 2 times a day, # 60 tablet, Refills 11, Tot. Refills 11, Maintenance, 11/21/24 12:18:00 PM EDT, Route to Pharmacy Electronically, [facility][id number], Partial fill upon patient request if the prescription is for a schedule II opioid drug., 167, cm, 11/20/24 15:42:00 EDT, Height, 61.4, kg, 08/29/23 13:53:00 EST, Dry Weight Start Date: 11/21/24 Status: Ordered Quantity: 60.0 Unit: tablet Repeat number: 12 Vitamin D 80217 iu oral capsule 50,000 International_Units, By Mouth, [...] Team Personnel Name: Gavin Velez MD Position: [facility] Physician - Gastroenterology Member Role: Lif[employer] Consulting Physician Address: [address] [facility], [address] [facility] [place] [address]- [place] [employer]: Name: Rhea Cortés Position: [facility] Associate Professional Member Role: [employer] Consulting Provider Address: [address] [facility] [place] [address]- [place] [employer]: Name: Harshad Toth MD Position: Reference Physician Member Role: PCP Address: [address] [place] [address]- Tele[employer]: Care Team Related Persons Name: VANDANA LEMUS Name: RIGOBERTO VICENTE Name: FRANCISCO JAVIER LYLE Insurance Providers Guarantor name: SHAR JULES Health Plan Information #: 1 Payer: SELF PAY Payer Identifier: NA Member Number: NA Group Number: NA Subscriber Identifier: [id number] Relationship to Subscriber: self Coverage Type: Self-pay (Includes applicants for insurance and Medicaid applicants) Coverage Verification Date: NA Telecom: NA Address: NA
[2025-02-21 10:30] VITALS: BP 115/72; PULSE 92; TEMP 36.9; O2SAT 100; BMI 22.2
--- NOTE | 2025-02-21 10:30 | AM.OFFWIN_ITS ---
Intake Vital Signs 02/21/25 10:30 Height 5 ft 5 in Weight 133 lb 6 oz BMI 22.2 BP 115/72 Blood Pressure Location Rt brachial Position Sitting Pulse 92 Pulse Source Pulse Oximeter Temp 98.4 F Temp Source Oral Pulse Oximetry (%) 100 Oxygen Delivery Method Room Air Intake Visit Reasons: EP UTI? 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: No Is last menstrual period known: Yes Last menstrual period: 02/09/25 Post menopausal: No Patient : No Allergies cephalexin Allergy (Severe, Verified 02/21/25 10:34) Difficulty Breathing Penicillins Allergy (Verified 02/21/25 10:34) Unknown prednisone Adverse Reaction (Verified 02/21/25 10:34) Anxiety Medication List - Last Reconciled 02/21/25 by Floresita Rosa MD albuterol sulfate 90 mcg/actuation 1 inh inhalation QID PRN bisacodyl (Dulcolax (bisacodyl)) 20 mg (4 x 5 mg) PO ONCE 1 day cholecalciferol (vitamin D3) 50 mcg PO DAILY clonazepam 0.5 mg PO BID PRN cyanocobalamin (vitamin B-12) 500 mcg PO DAILY 30 days gabapentin 300 mg PO Q8H gabapentin 100 mg PO TID hydroxyzine HCl 25 mg PO BEDTIME lansoprazole 30 mg PO DAILY loratadine 10 mg PO DAILY magnesium 250 mg PO BEDTIME polyethylene glycol 3350 (Miralax) 238 grams PO ONCE Do you need a note to return to daycare/school/sports/work: Yes HPI EP UTI? HPI Details Chief Complaint The patient complains of right-side abdominal pain and dysuria lasting since yesterday. History of Present Illness The patient is a 29-year-old female presenting with right-side abdominal pain and dysuria. Cystitis: - The patient reports experiencing pain in the right side of her abdomen beginning yesterday. - She describes pain during urination ac companied by a sensation of urgency with minimal urine output. - She feels a significant amount of pres sure in the abdominal area. - The patient denies any history of kidn ey stones or chronic kidney problems. - She reports having had a urinary tract infection (UTI) several years ago. - The patient denies experiencing fever, chills, or nausea but observes some body aches and a sensation of feeling unwell. - She experiences back pain specifically on the right side, raising her concern about potential kidney involvement. - The patient mentions the absence of harvey prapubic pain. - She has a procedure scheduled for colo noscopy and endoscopy and is concerned about possible anesthesia implications. - The patient is conscious about her celebration over the weekend and discusses potential interactions of alcohol with her planned antibiotic treatment. Medical History: - Known allergy to cephalexin. Surgical History: - The patient reports that she is schedu led for a colonoscopy and endoscopy. Problem List - Cystitis Patient Instruction - Start the prescribed antibiotic treatm ent as soon as possible. - Inform the cattle sticker office o f the mild infection and recent antibiotic start. - Monitor symptoms and if infection wors ens, discuss with healthcare provider before the procedure. - Consider avoiding alcohol during antib iotic treatment. - Contact the medical office if there is worsening or new symptoms. - Ensure medical team is aware of any ch anges or issues in health prior to the scheduled procedure. 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: Alert awake oriented x3 motor sensory intact Skin: Normal turgor PFSH Medical History History of colitis Fatigue Hypotension Anemia Salmonella Abnormal findings on esophagogastroduodenoscopy (EGD) Alcohol use disorder Epigastric abdominal pain ROMY (generalized anxiety disorder) Acute bronchitis Open wound of right knee Cellulitis of buttock, left Cochlear implant in place Encounter to establish care Panic attacks Severe anxiety Anxiety Surgical History History of esophagogastroduodenoscopy No pertinent past surgical history Family History Father BP (high blood pressure) Mother Breast cancer Other Mental health disorder Social History Household Members: Family Housing: Condominium Do you presently have visiting nurse or other home services: No Alcohol intake: current Alcohol intake frequency: a few times a month Patient Tobacco Use Status: Never used Tobacco service: No 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al status: employed 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 [place] Cognitive needs: No Hearing needs: Yes (right ear hearing aids) Vision needs: No Female Reproductive History Menstrual Date of last menstrual period: 02/09/25 Physical Exam Vital Signs: Last Vital Signs Temp 98.4 F 02/21/25 10:30 Pulse 92 02/21/25 10:30 BP 115/72 02/21/25 10:30 Pulse Ox 100 02/21/25 10:30 Oxygen Delivery Method Room Air 02/21/25 10:30 BMI result Body Mass Index 22.2 Results AMB Urinalysis, Automated UA Leukoctes 125 Anshu/uL Last Edit by Nadege De Santiago MA on 02/21/25 14:06 UA Nitrite Negative Last Edit by Nadege De Santiago MA on 02/21/25 14:06 UA Urobilinogen 0.2 mg/dL Last Edit by Nadege De Santiago MA on 02/21/25 14:06 UA Protein 0 mg/dL Last Edit by Nadege De Santiago MA on 02/21/25 14:06 UA pH 6.0 Last Edit by Nadege De Santiago MA on 02/21/25 14:06 UA Blood 0 Jacob/uL Last Edit by Nadege De Santiago MA on 02/21/25 14:06 UA Specific [place] 1.015 Last Edit by Nadege De Santiago MA on 02/21/25 14:06 UA Ketone Negative Last Edit by Nadege De Santiago MA on 02/21/25 14:06 UA Bilirubin 0 mg/dL Last Edit by Nadege De Santiago MA on 02/21/25 14:06 UA Glucose 0 mg/dL Last Edit by Nadege De Santiago MA on 02/21/25 14:06 Results Reviewed Results Reviewed: Laboratory Last Values Urine pH (Auto) 6.0 02/21/25 10:53 Specific [place] (Auto) 1.015 02/21/25 10:53 Urine Protein (Auto) 0 mg/dL 02/21/25 10:53 Glucose (UA)(Auto) 0 mg/dL 02/21/25 10:53 Urine Ketones (Auto) Negative 02/21/25 10:53 Urine Blood (Auto) 0 Jacob/uL 02/21/25 10:53 Urine Nitrite (Auto) Negative 02/21/25 10:53 Urine Bilirubin (Auto) 0 mg/dL 02/21/25 10:53 Urine Urobilinogen (Auto) 0.2 mg/dL 02/21/25 10:53 Leukocyte Esterase (Auto) 125 Anshu/uL 02/21/25 10:53 Assessment & Plan Assessment & Plan (1) Acute cystitis: Code(s): N30.00 - Acute cystitis without hematuria Qualifiers: Hematuria presence: without hematuria Qualified Code(s): N30.00 - Acute cystitis without hematuria Plan Chief Complaint The patient complains of right-side abdominal pain and dysuria lasting since yesterday. History of Present Illness The patient is a 29-year-old female presenting with right-side abdominal pain and dysuria. Cystitis: - The patient reports experiencing pain in the right side of her abdomen beginning yesterday. - She describes pain during urination accompanied by a sensation of urgency with minimal urine output. - She feels a significant amount of pressure in the abdominal area. - The patient denies any history of kidney stones or chronic kidney problems. - She reports having had a urinary tract infection (UTI) several years ago. - The patient denies experiencing fever, chills, or nausea but observes some body aches and a sensation of feeling unwell. - She experiences back pain specifically on the right side, raising her concern about potential kidney involvement. - The patient mentions the absence of suprapubic pain. - She has a procedure scheduled for colonoscopy and endoscopy and is concerned about possible anesthesia implications. - The patient is conscious about her birthday celebration over the weekend and discusses potential interactions of alcohol with her planned antibiotic treatment. Medical History: - Known allergy to cephalexin. Surgical History: - The patient reports that she is scheduled for a colonoscopy and endoscopy. Problem List - Cystitis Patient Instructions - Start the prescribed antibiotic treatment as soon as possible. - Inform the cattle sticker office of the mild infection and recent antibiotic start. - Monitor symptoms and if infection worsens, discuss with healthcare provider before the procedure. - Consider avoiding alcohol during antibiotic treatment. - Contact the medical office if there is worsening or new symptoms. - Ensure medical team is aware of any changes or issues in health prior to the scheduled procedure. - avoid alcohol use with antibiotic if possible Orders: Orders AMB Urinalysis Automated Today Z13.9 - Encounter for screening, unspecified Urine Culture Today N30.00 - Acute cystitis without hematuria Medications: New nitrofurantoin macrocrystal must administer with a meal/food 100 mg PO BID 10 caps 0RF 5 days Coding Level of Care Code Est Pt Level 3 (10898) Diagnoses Acute cystitis without hematuria N30.00 Hematuria presence: without hematuria
--- OUTSIDE RECORDS SUMMARY | 2025-02-21 11:03 | XMS_ITS | Clinical Summary ---
Author Organization [employer] [facility] Address [address] [address] Phone Care Team Providers Care Supervisor Inspection Room Name Role Phone Unavailable Primary Care Provider [...] Name:CHAIM MARTEL Date of :1992 (Home) Address: [address] [place] [address] Payer ID:Not on file Type:HMO Address: [place] [id number] [place], [place] [id number] [place], [place] [address] [place] [address] HMO Additional Source Comments The information contained in this document represents components of the legal health record. It is not the complete legal health record.[facility]
== END 2025-02-21 10:53 | disposition home or self-care (01) ==
PROVIDERS: PCP Internal Medicine; Visit Provider Internal Medicine
DX: Z13.9 Encounter for screening, unspecified (principal); N30.00 Acute cystitis without hematuria

== ENCOUNTER 2025-02-22 07:29 | Day surgery (SDC) | payer BC, SELFPAY ==
--- OUTSIDE RECORDS SUMMARY | 2025-01-24 10:23 | XMS_ITS | Data Portability ---
Author Organization [place] - [facility], Allergy Address [address] [address] Care Team Providers Care Maritime Guard Name Role Phone SALEEM CAPUTO Primary Care [...] to read at home, which gives a aqly-bt-tqrb discussion on what causes migraine and how [...] which should help. Follow up: As needed [email or web address] Not available 09/07/2024 10:35:42 Plan of Treatment [...] Sensorine ural hearing loss of bilateral ears 864280954 Active 2017 Sensorineu ral hearing loss, bilateral; Note: Date Diagnosed: 02/08/2018 2:56 PM (H90.3) Not Available [facility] 4 02:41:27 Refractor y migraine 844048252 Active 2017 Other migraine, intractabl e, without status migrainosu s; Note: Date Diagnosed: 02/08/2018 3:04 PM (G43.819) Not Available [facility] 4 02:41:24 Chronic pharyngit is 255106 Active 2016 Chronic sore throat; Note: Date Diagnosed: 08/18/2016 12:20 PM (J31.2) Not Available [facility] 4 02:41:31 Dizziness and giddiness 678325030 Active 2017 Dizziness and giddiness; Note: Date Diagnosed: 02/08/2018 3:04 PM (R42) Not Available [facility] 4 02:41:28 Neurologi saskia symptom 253060536 Active 2020 Other symptoms and signs involving the nervous system; Note: Date Diagnosed: 12/19/2020 4:56 PM (R29.818) Not Available [facility] 4 02:41:25 Generaliz ed anxiety disorder 30248776 Active 2020 Generalize d anxiety disorder; Note: Date Diagnosed: 08/08/2020 9:48 AM (F41.1) Not Available [facility] 4 02:41:23 M ni re's disease 77934015 Active 2017 Meniere's disease, right ear; Note: Date Diagnosed: 03/03/2018 5:11 PM (H81.01) Not Available [facility] 4 02:41:29 Gastroeso phageal reflux disease without esophagit is 677009764 Active 2016 Gastro-eso phageal reflux disease without esophagiti s; Note: Date Diagnosed: 08/18/2016 12:25 PM (K21.9) Not Available [facility] 4 02:41:23 Vertigo of central origin 47400061 Active 2023 Vertigo of central origin; Note: Date Diagnosed: 08/31/2023 2:43 PM (H81.4) Not Available [facility] 4 02:41:28 Problem Notes None recorded. Medical [...] dose pack 09/07 completed Medicati on ID: [id number] D uration Value: 6 Brand Name: Medrol (Ion) Se nd Method: E-Prescr ibed Sub s Allowed: subs OK Speci al Instruct ion: Take 1 pack as directed Medicat ionGener icName: Medrol (Ion) Not Available Not Available Not Available prednison e 20 mg tablet 03/03 completed Medicati on ID: [id number] P rescribe d By Name: Jude Pacheco [...] elayed release 02/08 completed Medicati on ID: [id number] D uration Value: 30 Reason: () Brand Name: omeprazo le Send Method: E-Prescr ibed Sub s Allowed: subs OK Speci al Instruct ion: TAKE 1 CAPSULE EVERY DAY Medi cationGe nericNam e: omeprazo le Not Available Not Available Not Available alprazola m 0.25 mg tablet 09/07 completed Medicati on ID: [id number] D uration Value: 10 Brand Name: alprazol [...] mg tablet 09/07 completed Medicati on ID: [id number] B rand Name: lorazepa m Send Method: [...] by mouth 08/08 completed Medicati on ID: [id number] P rescribe d By Name: Jude Pacheco [...] Available Xanax 02/08 completed Medicati on ID: [id number] Laura flaherty: () Brand Name: xanax Se nd Method: E-Prescr ibed Sub s Allowed: subs OK Medic ationGen ericName : xanax Not Available Not Available Not Available Nexium 24HR 20 mg tablet,de layed release 09/07 completed Medicati on ID: [id number] B rand Name: Nexium 24HR Sen d [...] SNOMED-CT Code Diagnosis ICD10 Code Diagnosis Note [id number] DOMENIC TOWNSEND MD [facility] [address] [address] 09/07/2024 09:48:51 09/07/2024 10:36:51 Cochlear prosthesis in situ [id number] Z96.21 Patient is likely due to get a new processor. This should be covered by her insurance as her current processor has been deemed obsolete and is no longer repairable . I have asked patient's mother to contact [employer] to initiate the process for getting a new processor. In the meantime they will follow-up with the [facility] Cochlear Implant Program for mapping and device troublesho oting. Refractory migraine 4238 54455 G43.819 Vertigo of central origin 79916706 H81.4 Neurological symptom 308 685955 R29.818 Health Concerns Section Related Observation LastModified by Organization Detai ls LastModified Time None Recorded Concern Status LastModified by Organization Details LastModified Time None Recorded Advance Directives Directive None Recorded Payers Insurance Date Sequence Insurance Name Policy Number Policy Dumont Covered Member ID Dumont Member ID Guarantor Name 09/07/2024 1 [employer]-ID [facility] [id number] Lashay Martel [id number] Lashay Martel 09/07/2024 1 [facility] [id number] Lashay Martel [id number] Lashay Martel Notes Date Note Type Note [...] I provided her.Patient is working with the [facility] Cochlear Implant Program for mapping and device maintenance. Her current processor is about 8 years old and is starting to fail. They just needed to get a new coil because it broke. She comes in today accompanied by her mother DOMENIC TOWNSEND MD [address] [place] [address], [place], [address], [facility] - [facility] 09/07/2024 10:37:12 OBGyn Episode No OBEpisode recorded.
[2025-02-20 13:39] VITALS: BMI 21.6
--- NOTE | 2025-02-21 10:44 | HO.ANESPROP2 ---
Documented by User: Jeanne Mack NP 02/21/25 10:47 HPI - Anesthesia Eval Consult details Narrative: 29yo F for Upper Endoscopy and Colonoscopy Cochlear implant Health anxiety PMFSH Active Problems Active Problems: All Active Problems History of colitis (Acute) Hypotension (Acute) Anemia (Acute) Salmonella (Acute) Acute bacterial sinusitis (Acute) Cognitive dysfunction (Acute) Cervicalgia (Acute) Back pain (Acute) Alcohol use disorder (Acute) Chronic cough (Acute) Dizziness (Acute) Coordination of complex care (Acute) Hospital discharge follow-up (Acute) Anxiety about health (Acute) Palpitations (Acute) IFG (impaired fasting glucose) (Acute) Drug allergy, multiple (Acute) Viral URI (Acute) Paronychia of left middle finger (Acute) Fungal skin infection (Acute) Somatoform disorder (Acute) BPPV (benign paroxysmal positional vertigo) (Acute) Polyarthralgia (Acute) GERD (gastroesophageal reflux disease) (Acute) Cochlear implant in place (Acute) Migraine (Acute) Physical exam (Acute) Eczema (Acute) Panic attacks (Acute) Severe anxiety (Acute) Mood disorder (Acute) Anxiety (Acute) Past Medical History Medical History History of colitis Fatigue Hypotension Anemia Salmonella Abnormal findings on esophagogastroduodenoscopy (EGD) Alcohol use disorder Epigastric abdominal pain ROMY (generalized anxiety disorder) Acute bronchitis Open wound of right knee Cellulitis of buttock, left Cochlear implant in place Encounter to establish care Panic attacks Severe anxiety Anxiety Family History Family History Father BP (high blood pressure) Mother Breast cancer Other Mental health disorder Surgical History Surgical History History of esophagogastroduodenoscopy Social History Social History Household Members: Family Housing: Condominium Are you a primary home health care social worker to a significant other at home: No Do you presently have visiting nurse or other home services: No Alcohol intake: current Alcohol intake frequency: a few times a month Patient Tobacco Use Status: Never used Tobacco Have you been hit, kicked, punched, or otherwise hurt by someone within the past year? If so, by whom?: No Are you DNR?: No Advance Directives: No Advance Directives Information Provided: Yes Patient : No FDLMP: 2 weeks ago Poor oral hygiene: No service: No 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al status: employed 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 [place] Cognitive needs: No Hearing needs: Yes (right ear hearing aids) Vision needs: No Meds Allergies Allergy/AdvReac Type Severity Reaction Status Date / Time cephalexin Allergy Severe Difficulty Verified 02/22/25 08:09 Breathing Penicillins Allergy Unknown Verified 02/22/25 08:09 prednisone AdvReac Anxiety Verified 02/22/25 08:09 Home Medications ?Medication ?Instructions ?Recorded ?Confirmed ?Last Taken ?Type loratadine 10 mg tablet 10 mg PO DAILY 08/03/20 02/21/25 06/20/24 History cholecalciferol (vitamin D3) 50 50 mcg PO DAILY 04/22/22 02/21/25 06/20/24 History mcg (2,000 unit) capsule magnesium 250 mg tablet 250 mg PO BEDTIME 04/22/22 02/21/25 06/20/24 History gabapentin 100 mg capsule 100 mg PO DAILY@1200 01/08/25 02/22/25 Unknown History gabapentin 300 mg capsule 300 mg PO BID 02/22/25 02/22/25 Unknown History Exam Height,Weight and Vital Signs: Height 5 ft 5 in Weight 58.967 kg Pertinent Lab Results Pertinent Lab Results: Laboratory Tests 01/16/25 01/22/25 16:57 16:48 WBC 5.2 Hgb 11.8 L Hct 34.8 L Plt Count 359 Sodium 138 Potassium 4.3 D Chloride 103 Carbon Dioxide 27 BUN 9 Creatinine 0.84 Narrative Narrative: EKG 01/2025 Details: EKG normal sinus rhythm with a ventricular rate of 68 with a normal ME interval normal QRS duration normal QT/QTC interval. No acute ischemic change are noted. Assessment and Plan Assessment Anesthesia Assessment: Chart Reviewed Documented by User: Javier Wilkins MD 02/22/25 10:22 [facility] Past Medical History Medical History History of colitis Fatigue Hypotension Anemia Salmonella Abnormal findings on esophagogastroduodenoscopy (EGD) Alcohol use disorder Epigastric abdominal pain ROMY (generalized anxiety disorder) Acute bronchitis Open wound of right knee Cellulitis of buttock, left Cochlear implant in place Encounter to establish care Panic attacks Severe anxiety Anxiety Family History Family History Father BP (high blood pressure) Mother Breast cancer Other Mental health disorder Family history of problems with anesthesia: No Surgical History Surgical History History of esophagogastroduodenoscopy History of Problems with Anesthesia: No Social History Social History Household Members: Family Housing: [facility] Are you a primary home health care social worker to a significant other at home: No Do you presently have visiting nurse or other home services: No Alcohol intake: current Alcohol intake frequency: a few times a month Patient Tobacco Use Status: Never used Tobacco Have you been hit, kicked, punched, or otherwise hurt by someone within the past year? If so, by whom?: No Are you DNR?: No Advance Directives: No Advance Directives Information Provided: Yes Patient : No FDLMP: 2 weeks ago Poor oral hygiene: No service: No 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al status: employed 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 [place] Cognitive needs: No Hearing needs: Yes (right ear hearing aids) Vision needs: No Meds Allergies Allergy/AdvReac Type Severity Reaction Status Date / Time cephalexin Allergy Severe Difficulty Verified 02/22/25 08:09 Breathing Penicillins Allergy Unknown Verified 02/22/25 08:09 prednisone AdvReac Anxiety Verified 02/22/25 08:09 Home Medications ?Medication ?Instructions ?Recorded ?Confirmed ?Last Taken ?Type loratadine 10 mg tablet 10 mg PO DAILY 08/03/20 02/21/25 06/20/24 History cholecalciferol (vitamin D3) 50 50 mcg PO DAILY 04/22/22 02/21/25 06/20/24 History mcg (2,000 unit) capsule magnesium 250 mg tablet 250 mg PO BEDTIME 04/22/22 02/21/25 06/20/24 History gabapentin 100 mg capsule 100 mg PO DAILY@1200 01/08/25 02/22/25 Unknown History gabapentin 300 mg capsule 300 mg PO BID 02/22/25 02/22/25 Unknown History Exam Airway Mallampati Class: I TM Dist: >3cm Neck ROM: Full Assessment and Plan Assessment Anesthesia Assessment: Anesthesia Plan Discussed Final Anesthetic Review Family History of Problems with Anesthesia: No History of Problems with Anesthesia: No NPO: Yes ASA Class: II Final Preanesthetic Review: No Changes in Pt Med Stat, Meds/Allgs Chart Reviewed, Consent Obtained/Reviewed and Anes Risks/Benef Reviewed Patient Risk: Low Procedure Risk: Low Anesthetic Plan Anesthetic Plan: TIVA Disposition: Standard PACU
[2025-02-22 08:08] LABS: UPreg QC Valid YES
[2025-02-22] MEDS: Lactated Ringers 1,000 ML 100 ML IVCONT (08:26)
[2025-02-22 08:28] VITALS: BP 115/70; PULSE 92; RESP 18; TEMP 36.7; O2SAT 100
--- NOTE | 2025-02-22 08:46 | MHC.SHP ---
Pre-Procedural Eval Section A - 24 Hr Update-Section A only Date of Service: 02/22/25 Section B - Complete if H&P > 30 days Chief Complaint: GERD, abd pain, diarrhea, colitis Details of Present Illness: History of colitis Fatigue Hypotension Anemia Salmonella Abnormal findings on esophagogastroduodenoscopy (EGD) Alcohol use disorder Epigastric abdominal pain ROMY (generalized anxiety disorder) Acute bronchitis Open wound of right knee Cellulitis of buttock, left Cochlear implant in place Encounter to establish care Panic attacks Severe anxiety Anxiety Surgical History History of esophagogastroduodenoscopy No pertinent past surgical history Allergies: Allergies Allergy/AdvReac Type Severity Reaction Status Date / Time cephalexin Allergy Severe Difficulty Verified 02/22/25 08:09 Breathing Penicillins Allergy Unknown Verified 02/22/25 08:09 prednisone AdvReac Anxiety Verified 02/22/25 08:09 Review of Systems Review of Systems Comment: Ten point ROS negative Exam Exam Comment: Gen appear: No acute distress HEENT: no icterus Chest: No overt resp distress Abd: soft, nontender, nondistended Psych: Stable affect, answering questions appropriately Neuro: A/Ox3 noted to move all extremities spontaneously Ext: no peripheral edema Plan Diagnosis/Plan: Unchanged I have reviewed the history and physical and performed a pertinent physical examination on my patient. No changes have occurred unless specified. Time Spent With Patient Time: Total time managing care of this patient today ____ minutes.
--- NOTE | 2025-02-22 10:13 | P.OPN-COLO_ITS ---
Colonoscopy Operative Note Operative Note Date of Service: 02/22/25 Narrative: Procedure: Upper endoscopy and colonoscopy Indication: Abd pain, rectal bleeding, colitis Endoscopist: Suki Lorenzo MD Anesthesia Provider: Dr Javier Wilkins Anesthesia type: MAC Instrument: [id number] and [id number] EGD Procedure:?? The procedure, indications, preparation and potential complications were reviewed with the patient, who indicated understanding and gave written informed consent to proceed. The endoscope was introduced through the mouth, and advanced to the 2nd part of the duodenum. The mucosa was carefully examined on slow withdrawal of the endoscope. The patient tolerated the procedure well. There were no immediate complications.? EGD Findings:? * Esophagus:? Normal esophageal mucosa was noted. The Z-line was at 39 cm. * Stomach:? Normal gastric mucosa. Numerous polyps noted in the fundus of the stomach, most likely consistent with fundic gland polyps. Cold forceps biopsies were taken for histology. Retroflexion was performed in the cardia. Cold forceps biopsies were taken from the antrum and body of stomach. * Duodenum:? Slightly blunted villi noted zheng in second portion of the duodenum. Cold forceps biopsies were taken from the duodenal bulb and 2nd portion of the duodenum to rule out celiac sprue. Colonoscopy Procedure:? The patient was then turned for the colonoscopy. A digital rectal exam was performed which was normal.? A distal attachment cap was affixed to the tip of the scope and the colonoscope was then inserted through the anus and advanced through the colon and advanced to the cecum at 70 cm and terminal ileum.? Appendiceal orifice and ileocecal valve were identified. Mucosa was carefully examined under high definition white light as the instrument was slowly withdrawn in a retrograde panoramic fashion. Retroflexion was performed in rectum. The procedure was not difficult. The quality of the prep was BBPS: 3+3+2 = adequate Withdrawal time 6 minutes Limitations: No limitations Findings: Mucosa: Normal colon and terminal ileum mucosa. Cold forceps biopsies were taken from the right and left side of the colon to rule out microscopic colitis. Protruding lesions: * Large internal hemorrhoids with stigmata of recent bleeding. Impression: 1. Normal esophagus 2. Normal stomach mucosa (biopsy) 3. Gastric polyps (biopsy) 4. R/o celiac (biopsy) 5. Normal colon and terminal ileum mucosa (biopsy) 6. Internal hemorrhoids Recommendations:?? * Follow-up path results * H Pylori treatment if biopsies + * Avoid straining and constipation. Increase fiber intake. Topical steroid per rectum for hemorrhoid management. * Asymptomatic colorectal cancer screening to begin at 45 years of age.
[2025-02-22 10:21] VITALS: BP 103/62; PULSE 70; RESP 18; TEMP 36.6; O2SAT 99
[2025-02-22 10:36] VITALS: BP 115/67; PULSE 87; RESP 18; TEMP 36.6; O2SAT 100
== END 2025-02-22 11:26 | disposition home or self-care (01) ==
PROVIDERS: Nurse Practitioner; PCP Internal Medicine; Visit Provider Internal Medicine
PROC: (CPT 45380; principal; 2025-02-22 09:10)
DX: K52.9 Noninfective gastroenteritis and colitis, unspecified (principal); K64.8 Other hemorrhoids; R10.9 Unspecified abdominal pain; K31.7 Polyp of stomach and duodenum; K21.9 Gastro-esophageal reflux disease without esophagitis
CPT/HCPCS: 45380; 43239; 81025; 88305; 88313; 88342; J0168; J2003; J2704

== ENCOUNTER → 2025-02-22 07:29 | Outpatient (BNV) | payer BC, SELFPAY | PROVIDERS: PCP Internal Medicine; Visit Provider Internal Medicine | DX: K62.5 Hemorrhage of anus and rectum (principal); K52.9 Noninfective gastroenteritis and colitis, unspecified; K64.8 Other hemorrhoids; R10.9 Unspecified abdominal pain; K31.7 Polyp of stomach and duodenum | CPT/HCPCS: 43239; 45380 ==

== ENCOUNTER 2025-02-22 19:38 | Emergency (ER) | payer BC, SELFPAY ==
--- NOTE | 2025-02-22 19:40 | ECG_ITS ---
Test Reason : CP Blood Pressure : */* mmHG Vent. Rate : 95 BPM Atrial Rate : 95 BPM P-R Int : 164 ms QRS Dur : 80 ms QT Int : 354 ms P-R-T Axes : 39 8 9 degrees QTcB Int : 444 ms Normal sinus rhythm Normal ECG When compared with ECG of 07-Aug-2024 09:32, No significant change was found Referred By: Generic ED Physician Electronically Signed By: Manish Castro
[2025-02-22 19:47] VITALS: BP 124/61; PULSE 99; RESP 16; TEMP 36.7; O2SAT 100; BMI 21.8
[2025-02-22 20:16] LABS: MANUAL DIFF FLAG NO
[2025-02-22 20:18] LABS: Hematocrit 34.3 % (37.0-47.0); Hemoglobin 12.0 g/dl (12.0-16.0); Imm Gran Abs Auto 0.02 X10*3/uL (0.00-0.03); Imm Gran Pct Auto 0.3 % (0.0-0.4); Lymphocytes Absolute Auto 1.7 X10*3/uL (1.2-4.9); Mean Corpuscular HGB Conc 35.0 g/dl (31.0-35.0); Mean Corpuscular Hemoglobin 30.2 pg (27.0-33.0); Mean Corpuscular Volume 86.2 fL (80.0-98.0); NRBC Abs Auto 0.000 X10*3/uL (0.0-0.012); NRBC Pct Auto 0.0 /100WBC (0.0-0.2); Platelet Count 302 X10*3/uL (160-400); Red Blood Count 3.98 X10*6/uL (4.20-5.50); White Blood Count 6.5 X10*3/uL (4.8-10.8)
[2025-02-22 20:23] LABS: INTERNATIONAL NORM RATIO 0.9 (0.9-1.1); Prothrombin Time 10.8 SEC (10.9-12.4)
[2025-02-22 20:32] LABS: Alanine Aminotransferase 23 U/L (0-31); Albumin Level 4.3 g/dL (3.5-5.0); Alkaline Phosphatase 79 U/L (39-117); Anion Gap 12 (12-20); Aspartate Amino Transferase 27 U/L (5-31); Blood Urea Nitrogen 11 mg/dL (9-16); Calcium 9.0 mg/dL (8.4-10.2); Carbon Dioxide 25 mmol/L (22-29); Chloride 107 mmol/L (96-108); Creatinine Clr Calc Pharmacy 117.4; Estimated Glomerular Filt Rate > 60; Lipase 30 U/L (8-78); Magnesium 1.8 mg/dL (1.6-2.6); Potassium 3.5 mmol/L (3.3-5.1); Sodium 140 mmol/L (135-145); Total Protein 7.1 g/dL (6.5-8.0)
[2025-02-22 20:39] LABS: Troponin-I High Sensitivity < 2.7 ng/L (<3.5-17.0)
[2025-02-22 20:58] LABS: Resp Syncy Virus RNA Qual PCR NEGATIVE (Negative); SARS COV2 PCR INHOUSE NEGATIVE (Negative)
--- NOTE | 2025-02-22 22:37 | PC.NURSE ---
Informed by registration staff Lilia patient had decided to leave. LWCT
== END 2025-02-22 22:38 | disposition left against medical advice (07) ==
PROVIDERS: Emergency Provider Emergency Medicine
DX: R07.9 Chest pain, unspecified (principal); Z03.818 Encounter for observation for suspected exposure to other biological agents ruled out; Z53.21 Procedure and treatment not carried out due to patient leaving prior to being seen by health care provider
CPT/HCPCS: 80053; 82248; 83690; 83735; 84484; 85025; 85610; 87637; 93005; 99281; 99283

== ENCOUNTER → 2025-02-22 19:40 | Outpatient (BNV) | payer BC, SELFPAY | PROVIDERS: Emergency Provider Emergency Medicine; Visit Provider Internal Medicine Cardiovascular Disease | DX: R07.9 Chest pain, unspecified (principal) | CPT/HCPCS: 93010 ==

== ENCOUNTER 2025-02-27 08:01 | Outpatient (AMB) | payer BC, SELFPAY ==
[2025-02-27 08:02] VITALS: BP 108/72; PULSE 91; O2SAT 99; BMI 22.0
--- NOTE | 2025-02-27 08:02 | MHC.OFFVIS ---
Vital Signs 02/27/25 08:02 Height 5 ft 6 in Weight 136 lb 6 oz BMI 22.0 BP 108/72 Blood Pressure Location Rt brachial Position Sitting Pulse 91 Pulse Source Pulse Oximeter Pulse Oximetry (%) 99 Oxygen Delivery Method Room Air Intake Visit Reasons: 2-6 mo follow up Intake Note: Patient presents 6 month follow up for migraines/vertigo. Voice Over Artist Required: No Accompanied by: Self / Same As Patient Allergies cephalexin Allergy (Severe, Verified 02/27/25 08:04) Difficulty Breathing Penicillins Allergy (Verified 02/27/25 08:04) Unknown prednisone Adverse Reaction (Verified 02/27/25 08:04) Anxiety HPI Comments Details: 30-year-old female presents for follow-up of neurological symptoms, including migraine-like headaches, brain fog, paresthesia, and poor coordination. Since the last visit, the patient has reached out to us with reports of worsening symptoms, including occipital headaches. She has an almost daily occipital headache. After discussion of options, the patient agreed to try a loading dose of Emgality with in-chief knowledge officer injection training. However, after 3 scheduled attempts, 1 of which the patient came to the office and then left the office before seeing the nurse, as she became anxious about doing an injection. She had also reached out to us to see if she could have mast cell activation syndrome. Patient was advised to have an allergy consult, which has since been scheduled with Dr. Corrales's office in June. She asks if this provider is certain that she does not have an intracranial or cervical etiology for her symptoms, as a friend of hers has similar symptoms and has spinal canal stenosis. Reviewed got her last C-spine x-ray was read as normal, and the repeated history of head CT has been very reassuring. She can also have both waking up gasping and panic. 10/24/2024, HST was inconclusive with AHI 1 per hour and O2 quintin 83%.? Patient has been advised to undergo a follow-up in-lab sleep study 07/18/2024, previous HPI 28-yr-old female presents for f/u visit for worsening neurological symptoms. She was last seen here almost a year ago. Pt reports she is overall doing worse than last year when she saw us. Patient had called us the other day to report her worsening symptoms. As patient was already on today's schedule, patient was advised to undergo additional laboratory workup including nutritional status lab workup- full results of which are still pending. Patient has had several interval ER evaluations. 06/21/2024: Presented for possible adverse effect from antibiotic to treat finger nail infection following artificial now placement. Was admitted for treatment of potential alcohol withdrawal. Patient states that she does not believe that she was exhibiting alcohol withdrawal symptoms. 07/10/2024: ER eval for shortness of breath and chest tightness. Echocardiogram showeda mobile atrial septum noted. Interatrial shunt cannot be excluded. She had [facility] cardiology f/u- per pt, she is scheduled for f/u echocardiogram and stress test this Wednesday. Upon review [facility] note, plan was to start patient on metoprolol and limited bubble echocardiogram. She had an ER eval on 07/11/24, as she had an episode of bilateral hands becoming stuck in extension x's > 1 hr, she fell to the ground. Since, she has not been able to do anything with her hands, they are shaky. She states she is having more difficulty functioning overall. She is having difficulty standing for more than 5 minutes. She has not been able to work in the past week. She is having more SOB chest tightness/pressure. She is still having her typical symptoms facial numbness/paresthesias and head zaps. more SOB chest tightness/pressure. She is having bouts of head pressure which can be associated with photophobia/phonophobia, and facial numbness. She has been feeling whooshing in her head, warm sensation, ringing in her ears. She can still have bouts of spinning vertigo triggered by head movement. Patient also reports increased snoring, gasping and panicked arousals. Previous HST in 2021 was inconclusive. After last year's visit, she did try sumatriptan once, but she did not retry it and she was worried she would have side effects. She states that she had been drinking 2-3 glasses of wine a night to help manage her anxiety, but she has not had any alcohol intake since New Year's Caroline. She is f/b [facility]- has a new therapist as her old therapist left the practice, and has a psychiatry consult in Aug. She does not feel that therapy will be helpful, as her anxiety is about her worsening health and physical symptoms. She again states that she is concerned that she could have a brain tumor or stroke. Today, she also states she is concerned she could have an aneurysm or seizure. Patient has been slowly weaning off of the gabapentin, states currently on 900 mg a day, and is concerned that when she stops that she will have a seizure. She was started on gabapentin for anxiety and not a seizure disorder. When asked why she thinks she would have seizures, she says many of her symptoms feels like when she thinks the seizure would feel it coming on. And when she was previously on high doses of alprazolam, she was told that she could not abruptly stop the alprazolam due to risk for seizure activity. She was given a p.r.n. order for clonazepam on 07/16/2023, patient has not started this as she thought it might trigger seizure. [facility] Medical History History of colitis Fatigue Hypotension Anemia Salmonella Abnormal findings on esophagogastroduodenoscopy (EGD) Alcohol use disorder Epigastric abdominal pain ROMY (generalized anxiety disorder) Acute bronchitis Open wound of right knee Cellulitis of buttock, left Cochlear implant in place Encounter to establish care Panic attacks Severe anxiety Anxiety Surgical History History of esophagogastroduodenoscopy Family History Father BP (high blood pressure) Mother Breast cancer Other Mental health disorder Social History Household Members: [facility] Are you a primary animal care giver to a significant other at home: No Do you presently have visiting nurse or other home services: No Alcohol intake: current Alcohol intake frequency: a few times a month Patient Tobacco Use Status: Never used Tobacco service: No 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al status: employed 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 Facial symmetry Patient easily moves from sitting to standing. No visible bilateral upper extremity postural tremor General: patient oriented x3 Cognition (Neuro): normal cognition Psych Other: Patient appears more anxious than her usual baseline Appearance: grossly normal Attitude: cooperative Assessment & Plan Assessment & Plan (1) Anxiety about health: Code(s): R45.89 - Other symptoms and signs involving emotional state Category: Medical (2) Migraine: Code(s): G43.909 - Migraine, unspecified, not intractable, without status migrainosus Category: Medical Qualifiers: Intractability: not intractable Migraine type: unspecified Status migrainosus presence: without status migrainosus Qualified Code(s): G43.909 - Migraine, unspecified, not intractable, without status migrainosus (3) Vertigo: Code(s): R42 - Dizziness and giddiness Category: Medical (4) Facial paresthesia: Code(s): R20.2 - Paresthesia of skin Category: Medical (5) Numbness and tingling: Code(s): R20.0 - Anesthesia of skin; R20.2 - Paresthesia of skin Category: Medical (6) Shortness of breath: Code(s): R06.02 - Shortness of breath Category: Medical (7) Snoring: Code(s): R06.83 - Snoring Category: Medical (8) Paroxysmal nocturnal dyspnea: Code(s): R06.00 - Dyspnea, unspecified Category: Medical Plan Reviewed that many of her symptoms can be seen in both migraine and mast cell activation disorders. Reviewed interval HST- inconclusive Will request in-lab sleep study to assess for increased snoring, gasping arousals, and nocturnal panic attacks. Patient sleep education resources information shared- via patient portal. Follow-up with cardiology as scheduled Allergy consult as scheduled Order previously placed for [facility]- to assist with marked health anxiety For migraine prevention: Start Atogepant (Qulipta) 60mg daily at bedtime. Potential side effects include but are not limited to drowsiness, nausea, constipation, weight loss. Previous treatment trials: Amitriptyline 10-20 mg not tolerated. Migraine treatment contraindications: Beta-blockers due to asthma/nocturnal dyspnea and patient is prone to hypotension. CGRP monoclonal antibodies (emgality, aimobig, ajovy) and Botox, at this time, as patient has marked needle phobic. Future considerations: Pepcid, doxepin For acute migraine treatment: Resume Sumatriptan 100mg tab, 1/2 - 1 tab (50-100mg) at onset of headache, may repeat in 2 hours. Max of 2 tabs (200mg) per 24 hours. May take sumatriptan with OTC Tylenol 650-1,000mg every 4-6 hours, Ibuprofen (liquid gels) 600mg every 6 hours, or Naproxen (liquid gels) 440mg q 12 hrs prn. Potential adverse effects of triptans, include but are not limited to nausea, fatigue, chest tightness/tingling (usually passes within a few minutes), medication overuse headaches. Pt advised to update us w/ the status Will follow-up upon review of above and patient to follow-up in clinic in 3-6 months or sooner prn. Coding Level of Care Code Est Pt Level 4 (18816) Diagnoses Anxiety about health R45.89 Migraine without status migrainosus, not intractable, unspecified migraine type G43.909 Intractability: not intractable Migraine type: unspecified Status migrainosus presence: without status migrainosus Vertigo R42 Facial paresthesia R20.2 Numbness and tingling R20.0; R20.2 Shortness of breath R06.02 Snoring R06.83 Paroxysmal nocturnal dyspnea R06.00
== END 2025-02-27 08:54 | disposition home or self-care (01) ==
LOC: HO.HSMS 08:02
PROVIDERS: PCP Internal Medicine; Visit Provider Nurse Practitioner Family
DX: R45.89 Other symptoms and signs involving emotional state (principal); G43.909 Migraine, unspecified, not intractable, without status migrainosus; R42 Dizziness and giddiness; R20.2 Paresthesia of skin; R20.0 Anesthesia of skin; R06.02 Shortness of breath; R06.83 Snoring; R06.00 Dyspnea, unspecified
CPT/HCPCS: 99214

== ENCOUNTER 2025-03-21 16:15 | Outpatient (AMB) | payer OTHER, SELFPAY ==
--- NOTE | 2025-03-21 16:16 | A.OFFVIS_ITS ---
Vital Signs 03/21/25 16:20 Height 5 ft 6 in Weight 135 lb BMI 21.8 BP 128/88 Blood Pressure Location Rt brachial Position Sitting Pulse 96 Pulse Source Pulse Oximeter Pulse Oximetry (%) 99 Oxygen Delivery Method Room Air Intake Visit Reasons: S/P EGD FUV. Pt r/s x1 Intake Note: Est pt for mgmt of chronic abd pain and unintentional W/L. S/P FUV. CC; C.O. gerd persistence despite current PPI therapy. Lumber Salvager Required: No Accompanied by: Self / Same As Patient Allergies cephalexin Allergy (Severe, Verified 03/21/25 16:16) Difficulty Breathing Penicillins Allergy (Verified 03/21/25 16:16) Unknown prednisone Adverse Reaction (Verified 03/21/25 16:16) Anxiety HPI HPI S/P EGD FUV. Pt r/s x1: Details: LAST VISIT GERD (gastroesophageal reflux disease) History of colitis IBS (irritable bowel syndrome) Constipation Plan Patient will continue taking Dulcolax daily instead of as needed. Increase fluid intake and activity to promote better bowel motility. Patient is going this afternoon for CT scan to re-evaluate if colitis has improved. Patient was encouraged to do Sitz baths and use hydrocortisone twice a day. Patient is scheduled for colonoscopy in 3 weeks. Patient is on cancellation list if anything sooner opens up. She is hemodynamically stable. Denies any nausea, vomiting, abdominal pain or discomfort. Patient will return to the office after the procedure. Patient was encouraged to call our office if she will have any GI concerning symptoms. Patient is agreeable to current plan of care and verbalizes understanding of instructions. She was given the opportunity to ask questions and all questions answered. ? UPPER ENDOSCOPY AND COLONOSCOPY EGD Findings:? * Esophagus:? Normal esophageal mucosa was noted. The Z-line was at 39 cm. * Stomach:? Normal gastric mucosa. Numerous polyps noted in the fundus of the stomach, most likely consistent with fundic gland polyps. Cold forceps biopsies were taken for histology. Retroflexion was performed in the cardia. Cold forceps biopsies were taken from the antrum and body of stomach. * Duodenum:? Slightly blunted villi noted zheng in second portion of the duodenum. Cold forceps biopsies were taken from the duodenal bulb and 2nd portion of the duodenum to rule out celiac sprue. Colonoscopy Procedure:? The patient was then turned for the colonoscopy. A digital rectal exam was performed which was normal.? A distal attachment cap was affixed to the tip of the scope and the colonoscope was then inserted through the anus and advanced through the colon and advanced to the cecum at 70 cm and terminal ileum.? Appendiceal orifice and ileocecal valve were identified. Mucosa was carefully examined under high definition white light as the instrument was slowly withdrawn in a retrograde panoramic fashion. Retroflexion was performed in rectum. The procedure was not difficult. The quality of the prep was BBPS: 3+3+2 = adequate Withdrawal time 6 minutes Limitations: No limitations Findings: Mucosa: Normal colon and terminal ileum mucosa. Cold forceps biopsies were taken from the right and left side of the colon to rule out microscopic colitis. Protruding lesions: * Large internal hemorrhoids with stigmata of recent bleeding. Impression: 1. Normal esophagus 2. Normal stomach mucosa (biopsy) 3. Gastric polyps (biopsy) 4. R/o celiac (biopsy) 5. Normal colon and terminal ileum mucosa (biopsy) 6. Internal hemorrhoids Recommendations:?? * Follow-up path results * H Pylori treatment if biopsies + * Avoid straining and constipation. Increase fiber intake. Topical steroid per rectum for hemorrhoid management. * Asymptomatic colorectal cancer screening to begin at 45 years of age. PATHOLOGY RESULTS Diagnosis A. Duodenum, biopsy: Duodenal mucosa within normal limits; preserved villous architecture and no increased intraepithelial lymphocytes seen. B. Stomach, antrum, biopsy: Gastric antral mucosa with mild chronic inactive gastritis; negative for Helicobacter pylori, intestinal metaplasia and dysplasia. C. Stomach, body, biopsy: Gastric body mucosa within normal limits; negative for Helicobacter pylori, intestinal metaplasia and dysplasia. D. Stomach, polyp, biopsy: Fundic gland polyp. E. Colon, right, biopsy: Colonic mucosa within normal limits; negative for active, chronic or microscopic colitis. F. Colon, left, biopsy: Colonic mucosa within normal limits; negative for active, chronic or microscopic colitis TODAY'S VISIT: Patient is here today for follow-up and to discuss upper endoscopy colonoscopy results. Both procedures discussed with patient. Patient reports that after h er colonoscopy and endoscopy patient has tightness in her chest, went to ER however due to long wait time patient left. Blood work and EKG was done and all was normal. Patient is very anxious reports that she is feeling fine currently and dizzy. Worked up in the past by couple different cardiologists offices with Holter monitor the. Script for propranolol was given for patient for for hypertension, however patient reports that she is not using it. Patient reports constipation occasional diarrhea postprandial depending on what she eats. Patient reports abdominal bloating frequent. Patient does admit starting to drink wine almost every night. Last week patient reports that she dranks 2 bottles of wine. Patient reports occasional nausea. She ran out of lansoprazole few days ago and reports that she has been having epigastric pain with acid reflux. I have ordered upper GI series with barium swallow to evaluate reflux back in August. Appointment was not scheduled yet. Will see if pharmaceutical officer can help booking this for patient [facility] Medical History History of colitis Fatigue Hypotension Anemia Salmonella Abnormal findings on esophagogastroduodenoscopy (EGD) Alcohol use disorder Epigastric abdominal pain ROMY (generalized anxiety disorder) Acute bronchitis Open wound of right knee Cellulitis of buttock, left Cochlear implant in place Encounter to establish care Panic attacks Severe anxiety Anxiety Surgical History History of esophagogastroduodenoscopy Family History Father BP (high blood pressure) Mother Breast cancer Other Mental health disorder Social History Household Members: Family Housing: Condominium Are you a primary career based intervention coordinator to a significant other at home: No Do you presently have visiting nurse or other home services: No Alcohol intake: current Alcohol intake frequency: a few times a month Patient Tobacco Use Status: Never used Tobacco service: No 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al status: employed 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 [employer] Cognitive needs: No Hearing needs: Yes (right ear hearing aids) Vision needs: No Review of Systems Const Denies weight gain and Denies weight loss ENT Reports no additional complaints, Denies dysphagia and Denies odynophagia Card Reports no additional complaints Resp Reports no additional complaints GI Reports abdominal pain (Epigastric), Denies belching, Denies melena, Reports bloating, Denies change in bowel habits, Reports constipation, Denies dysphagia, Denies excessive flatus, Reports dyspepsia, Reports heartburn, Denies diarrhea, Reports loose stools, Reports nausea (Occasional in the morning), Denies odynophagia and Denies vomiting Reports no additional complaints Musc Reports no additional complaints Neuro Reports no additional complaints Psych Reports no additional complaints Endo Reports no additional complaints Physical Exam Vital Signs: BMI result Body Mass Index 21.8 Const General: healthy appearing, no acute distress and well developed Nutritional Appearance: well nourished Orientation/consciousness: patient oriented x3 Resp Effort & Inspection: normal respiratory effort, able to speak in complete sentences, no tracheal deviation and symmetric chest movement Auscultation: clear to auscultation bilaterally Cardio Rate: regular rate GI Inspection: Yes normal to inspection and No distended Palpation (GI): Soft to palpation, not firm, nontender and No hepatosplenomegaly present Auscultation: normal bowel sounds Rectal Exam - Female: visual inspection normal, normal sphincter tone and No External hemorrhoid(s) present General: Yes no CVA tenderness Back/Spine/Pelvis Back: no CVA tenderness Skin General skin exam: elasticity normal, turgor normal and dry skin Neuro General: patient oriented x3 Psych Appearance: grossly normal Mental Status: mental status grossly normal Assessment & Plan Assessment & Plan (1) GERD (gastroesophageal reflux disease): Code(s): K21.9 - Gastro-esophageal reflux disease without esophagitis Category: Medical Qualifiers: Esophagitis presence: without esophagitis Qualified Code(s): K21.9 - Gastro-esophageal reflux disease without esophagitis (2) Status post colonoscopy: Code(s): Z98.890 - Other specified postprocedural states (3) Irritable bowel syndrome with constipation: Code(s): K58.1 - Irritable bowel syndrome with constipation (4) Postprandial abdominal bloating: Code(s): R14.0 - Abdominal distension (gaseous) Plan Patient will continue taking lansoprazole. Patient was encouraged to avoid dietary triggers and late night snacking. Staying upright for minimal 3 hours after meals discussed with patient. Patient was encouraged to stay away from drinking wine or any other alcohol. She will start taking sucralfate at bedtime. Patient was encouraged to take Dulcolax every day or every other day to help her empty her bowels better. Follow FODMAP diet as discussed last visit. Colonoscopy normal patient will repeat at the age 43, earlier if clinically necessary. Staff to call radiology to schedule patient for upper GI with barium swallow. Patient will follow-up in 3 months, sooner on as needed basis. She is agreeable to this plan and verbalizes understanding of instruct ions. She was given the opportunity to ask questions and all questions answered Medications: New sucralfate 1 g PO BEDTIME 30 tabs 4RF R19.7 - Diarrhea, unspecified bisacodyl (Dulcolax (bisacodyl)) 10 mg (2 x 5 mg) PO BEDTIME 180 tabs 4RF Refilled lansoprazole 30 mg PO DAILY 90 caps 3RF K21.9 - Gastro-esophageal reflux disease without esophagitis Coding Level of Care Code Est Pt Level 4 (88925) Complex EM visit Add On G2211 Diagnoses Gastroesophageal reflux disease without esophagitis K21.9 Esophagitis presence: without esophagitis Status post colonoscopy Z98.890 Irritable bowel syndrome with constipation K58.1 Postprandial abdominal bloating R14.0 Time Spent (min) 40 Comment 25 minutes spent with patient and additional 15 minutes spent reviewing her records
[2025-03-21 16:20] VITALS: BP 128/88; PULSE 96; O2SAT 99; BMI 21.8
--- OUTSIDE RECORDS SUMMARY | 2025-03-21 18:38 | XMS_ITS | Clinical Summary ---
Author Organization [employer] [facility] Address [address] [address] Phone Care Team Providers Care Inspector Toys Name Role Phone Unavailable Primary Care Provider [...] (18-6 5 YEARS) 2011 PAP SMEAR 2014 INFLUENZA VACCINE (#1) 2025 COVID-19 VACCINE (2023-2 5 season) 2025 HEPATITIS A VACCINES Aged Out No long [...] topic Medical Devices Not on file [place] [address] [place], [place] [address] [place], [place] [address] [address] HMO Additional Source Comments The information contained in this document represents components of the legal health record. It is not the complete legal health record.[facility]
== END 2025-03-21 18:17 | disposition home or self-care (01) ==
PROVIDERS: PCP Internal Medicine; Visit Provider Nurse Practitioner Family
DX: K21.9 Gastro-esophageal reflux disease without esophagitis (principal); Z98.890 Other specified postprocedural states; K58.1 Irritable bowel syndrome with constipation; R14.0 Abdominal distension (gaseous)
CPT/HCPCS: 99214

== ENCOUNTER 2025-03-22 12:30 | Outpatient (REF) | payer OTHER, SELFPAY ==
[2025-03-22 13:50] LABS: Appearance Urine Clear; Glucose Urine UA Negative (Negative); PH 6.5 (5.0-9.0); Specific Gravity - Urine 1.010 (1.005-1.025)
--- OUTSIDE RECORDS SUMMARY | 2025-03-22 16:45 | XMS_ITS | Clinical Summary ---
Author Organization [employer] [facility] Address [address] [address] Phone Care Team Providers Care Turbine Operator Name Role Phone Unavailable Primary Care Provider [...] Devices Not on file Insurance [place] [address] [place] [place] [address] [place] [place] [address] [place] [address] HMO Additional Source Comments The information contained in this document represents components of the legal health record. It is not the complete legal health record.[facility]
== END 2025-03-22 12:31 | disposition home or self-care (01) ==
LOC: HO.LAB 12:30
PROVIDERS: PCP Internal Medicine; Visit Provider Internal Medicine
DX: R30.0 Dysuria (principal)
CPT/HCPCS: 81003

== ENCOUNTER 2025-04-07 15:37 | Emergency (ER) | payer OTHER, SELFPAY ==
--- NOTE | 2025-04-07 | ECG_ITS ---
Test Reason : CP Blood Pressure : */* mmHG Vent. Rate : 90 BPM Atrial Rate : 90 BPM P-R Int : 132 ms QRS Dur : 76 ms QT Int : 382 ms P-R-T Axes : 37 20 16 degrees QTcB Int : 467 ms Normal sinus rhythm Low voltage QRS Borderline ECG When compared with ECG of 22-Feb-2025 19:39, No significant change was found Referred By: Generic ED Physician Electronically Signed By: Manish Castro
[2025-04-07 15:43] VITALS: BP 115/81; BP 135/86; PULSE 100; PULSE 92; RESP 15; TEMP 37; O2SAT 100; O2SAT 99; BMI 21.0
[2025-04-07 16:04] LABS: Hematocrit 37.1 % (37.0-47.0); Hemoglobin 12.8 g/dl (12.0-16.0); Imm Gran Abs Auto 0.02 X10*3/uL (0.00-0.03); Imm Gran Pct Auto 0.2 % (0.0-0.4); Lymphocytes Absolute Auto 1.7 X10*3/uL (1.2-4.9); MANUAL DIFF FLAG NO; Mean Corpuscular HGB Conc 34.5 g/dl (31.0-35.0); Mean Corpuscular Hemoglobin 29.8 pg (27.0-33.0); Mean Corpuscular Volume 86.3 fL (80.0-98.0); NRBC Abs Auto 0.000 X10*3/uL (0.0-0.012); NRBC Pct Auto 0.0 /100WBC (0.0-0.2); Platelet Count 349 X10*3/uL (160-400); Red Blood Count 4.30 X10*6/uL (4.20-5.50); White Blood Count 8.3 X10*3/uL (4.8-10.8)
--- OUTSIDE RECORDS SUMMARY | 2025-04-07 16:07 | XMS_ITS | Data Portability ---
Author Organization [place] - [facility], Allergy Address [address] [address] Care Team Providers Care Postage Machine Operator Name Role Phone SALEEM CAPUTO Primary [...] to read at home, which gives a [id number] discussion on what causes migraine and how [...] which should help. Follow up: As needed Not available 09/07/2024 10:35:42 Plan of Treatment [...] audio gram No observ ation record ed. [id number] Not Available 08/13 10:38:37 Result Notes None recorded. Problems Name Problem SNOMED Code Status Onset Date Resolution Date Notes Provider Name and Address Organization Details Recorded Time Chronic pharyngit is 375431 Active 2016 Chronic sore throat; Note: Date Diagnosed: 08/18/2016 12:20 PM (J31.2) Not Available [facility] 4 02:41:31 Gastroeso phageal reflux disease without esophagit is [id number] Active 2016 Gastro-eso phageal reflux disease without esophagiti s; Note: Date Diagnosed: 08/18/2016 12:25 PM (K21.9) Not Available [facility] 4 02:41:23 Sensorine ural hearing loss of bilateral ears 708016282 Active 2017 Sensorineu ral hearing loss, bilateral; Note: Date Diagnosed: 02/08/2018 2:56 PM (H90.3) Not Available [facility] 4 02:41:27 Refractor y migraine 903869931 Active 2017 Other migraine, intractabl e, without status migrainosu s; Note: Date Diagnosed: 02/08/2018 3:04 PM (G43.819) Not Available [facility] 4 02:41:24 Dizziness and giddiness 147214435 Active 2017 Dizziness and giddiness; Note: Date Diagnosed: 02/08/2018 3:04 PM (R42) Not Available [facility] 02:41:28 M ni re's disease 89420685 Active 2017 Meniere's disease, right ear; Note: Date Diagnosed: 03/03/2018 5:11 PM (H81.01) Not Available [facility] 4 02:41:29 Generaliz ed anxiety disorder 32193132 Active 2020 Generalize d anxiety disorder; Note: Date Diagnosed: 08/08/2020 9:48 AM (F41.1) Not Available [facility] 4 02:41:23 Neurologi saskia symptom 288616776 Active 2020 Other symptoms and signs involving the nervous system; Note: Date Diagnosed: 12/19/2020 4:56 PM (R29.818) Not Available [facility] 02:41:25 Vertigo of central origin 58117894 Active 2023 Vertigo of central origin; Note: Date Diagnosed: 08/31/2023 2:43 PM (H81.4) Not Available [facility] 4 02:41:28 Problem Notes None recorded. Medical [...] dose pack 09/07 completed Medicati on ID: [id number] D uration Value: 6 Brand Name: Medrol (Ion) Se nd Method: E-Prescr ibed Sub s Allowed: subs OK Speci al Instruct ion: Take 1 pack as directed Medicat ionGener icName: Medrol (Ion) Not Available Not Available Not Available prednison e 20 mg tablet 03/03 completed Medicati on ID: [id number] P rescribe d By Name: Jude Pacheco [...] elayed release 02/08 completed Medicati on ID: [id number] D uration Value: 30 Reason: () Brand Name: omeprazo le Send Method: E-Prescr ibed Sub s Allowed: subs OK Speci al Instruct ion: TAKE 1 CAPSULE EVERY DAY Medi cationGe nericNam e: omeprazo le Not Available Not Available Not Available alprazola m 0.25 mg tablet 09/07 completed Medicati on ID: [id number] D uration Value: 10 Brand Name: alprazol [...] mg tablet 09/07 completed Medicati on ID: [id number] B rand Name: lorazepa m Send Method: [...] by mouth 08/08 completed Medicati on ID: [id number] P rescribe d By Name: Jude Pacheco [...] Available Xanax 02/08 completed Medicati on ID: [id number] Laura flaherty: () Brand Name: xanax Se nd Method: E-Prescr ibed Sub s Allowed: subs OK Medic ationGen ericName : xanax Not Available Not Available Not Available Nexium 24HR 20 mg tablet,de layed release 09/07 completed Medicati on ID: [id number] B rand Name: Nexium 24HR Sen d [...] Diagnosis SNOMED-CT Code Diagnosis ICD10 Code Diagnosis IMO Codes Diagnosis Note [id number] DOMENIC TOWNSEND MD [facility] [address] [address] 09/07/2024 09:48:51 09/07/2024 10:36:51 Cochlear prosthesis in situ [id number] Z96.21 Patient is likely due to get a new processor. This should be covered by her insurance as her current processor has been deemed obsolete and is no longer repairable . I have asked patient's mother to contact [employer] to initiate the process for getting a new processor. In the meantime they will follow-up with the [facility]plant [facility] for mapping and device troublesho oting. Refractory migraine [id number] G43.819 Vertigo of central origin [id number] H81.4 Neurological symptom 308 [id number] R29.818 Health Concerns Section Related Observation LastModified by Organization Detai ls LastModified Time None Recorded Concern Status LastModified by Organization Details LastModified Time None Recorded Advance Directives Directive None Recorded Payers Insurance Date Sequence Insurance Name Policy Number Policy Dumont Covered Member ID Dumont Member ID Guarantor Name 09/07/2024 1 [employer]-ID [facility] [id number] Lashay Martel [id number] Lashay Martel 09/07/2024 1 [facility] [id number] Lashay Martel [id number] Lashay Martel Notes Date Note Type Note Provider Name and Address Organization Details Recorded Time 09/07/2024 text/html 29-year-old female who had right sided cochlear implant placed [...] I provided her.Patient is working with the [facility]plant [facility] for mapping and device maintenance. Her current processor is about 8 years old and is starting to fail. They just needed to get a new coil because it broke. She comes in today accompanied by her mother DOMENIC TOWNSEND MD [address] [place] [address], [phone], [facility] - [facility] 09/07/2024 10:37:12 OBGyn Episode No OBEpisode recorded.
--- OUTSIDE RECORDS SUMMARY | 2025-04-07 16:07 | XMS_ITS | Clinical Summary ---
Author Organization [facility] Address [address] [address] Phone Care Team Providers Care Sales Order Administrator Name Role Phone Unavailable Primary Care Provider [...] Devices Not on file [place] [address] [place] [address] [place] [place] [address] [place], [place] [address] [address] HMO Additional Source Comments The information contained in this document represents components of the legal health record. It is not the complete legal health record.[facility]
[2025-04-07 16:21] LABS: Alanine Aminotransferase 23 U/L (0-31); Albumin Level 4.7 g/dL (3.5-5.0); Alkaline Phosphatase 89 U/L (39-117); Anion Gap 19 (12-20); Aspartate Amino Transferase 41 U/L (5-31); Blood Urea Nitrogen 7 mg/dL (9-16); Calcium 9.2 mg/dL (8.4-10.2); Carbon Dioxide 22 mmol/L (22-29); Chloride 100 mmol/L (96-108); Creatinine Clr Calc Pharmacy 113.9; Estimated Glomerular Filt Rate > 60; Potassium 4.0 mmol/L (3.3-5.1); Sodium 137 mmol/L (135-145); Total Protein 8.0 g/dL (6.5-8.0)
[2025-04-07 16:30] VITALS: BP 114/71; PULSE 91; RESP 16; O2SAT 96
[2025-04-07 16:56] LABS: Troponin-I High Sensitivity < 2.7 ng/L (<3.5-17.0)
--- NOTE | 2025-04-07 17:08 | ED_ITS ---
HPI - Alcohol General Chief Complaint: ETOH/Substance Use Stated Complaint: Chest Pain Time Seen by Provider: 04/07/25 16:03 History of Present Illness HPI narrative: 30-year-old female with a long history of alcohol use. Presents today with having drinking heavily. Patient under lot of stress at home due to family situation. Not suicidal not homicidal. Had had previous alcohol withdrawal seizures in the past but she just finished drinking at noon today. Denies any other drugs ingested. Related Data Home Medications ?Medication ?Instructions ?Recorded ?Confirmed loratadine 10 mg tablet 10 mg PO DAILY 08/03/2002/09 cholecalciferol (vitamin D3) 50 50 mcg PO DAILY 02/21/25 mcg (2,000 unit) capsule magnesium 250 mg tablet 250 mg PO BEDTIME 04/22/22 0 02/21/25 gabapentin 100 mg capsule 100 mg PO DAILY@1200 01/08/ 5 02/22/25 gabapentin 300 mg capsule 300 mg PO BID 02/22/2502/22 Previous Rx's ?Medication ?Instructions ?Recorded clonazepam 0.5 mg tablet 0.5 mg PO BID PRN anxiety, p anic 07/18/24 attacks #30 tabs hydroxyzine HCl 25 mg tablet 25 mg PO BEDTIME #90 tabs 07/18/24 albuterol sulfate 90 mcg/actuation 1 inh inhalation QI D PRN shortness 12/18/24 aerosol inhaler of breath or wheezing #6.7 g shruthi cyanocobalamin (vitamin B-12) 500 500 mcg PO DAILY 30 days #30 tabs 01/24/25 mcg tablet hydrocortisone 2.5 % topical cream 1 appl [place] BEDTIME 1 4 days #30 grams 02/22/25 with perineal applicator (Anusol-HC) bisacodyl 5 mg tablet,delayed 10 mg (2 x 5 mg) PO BEDT KRISTIN #180 03/21/25 release (Dulcolax (bisacodyl)) tabs lansoprazole 30 mg capsule,delayed 30 mg PO DAILY #90 caps 03/21/25 release sucralfate 1 gram tablet 1 g PO BEDTIME #30 tabs 03/12 lorazepam 1 mg tablet (Ativan) 1 mg PO TID PRN anxiety / withdraw 04/07/25 3 days #10 tabs ondansetron 4 mg disintegrating 4 mg PO TID PRN nausea and 04/07/25 tablet vomiting 5 days #10 tabs Allergies Allergy/AdvReac Type Severity Reaction Status Date / Time cephalexin Allergy Severe Difficulty Verified 04/07/25 15:48 Breathing Penicillins Allergy Unknown Verified 04/07/25 15:48 prednisone AdvReac Anxiety Verified 04/07/25 15:48 Review of Systems 2 Review of Systems: No fever no chills Positive EtOH Yes all other systems are reviewed and are negative [facility] Past Medical History Attestation statement: The following information was validated with the patient. Medical History History of colitis Fatigue Hypotension Anemia Salmonella Abnormal findings on esophagogastroduodenoscopy (EGD) Alcohol use disorder Epigastric abdominal pain ROMY (generalized anxiety disorder) Acute bronchitis Open wound of right knee Cellulitis of buttock, left Cochlear implant in place Encounter to establish care Panic attacks Severe anxiety Anxiety Surgical History History of esophagogastroduodenoscopy Family History Family History Father BP (high blood pressure) Mother Breast cancer Other Mental health disorder Social History Social History Household Members: [facility] Are you a primary rn coronary care unit to a significant other at home: No Do you presently have visiting nurse or other home services: No Alcohol intake: current Alcohol intake frequency: 3 or more drinks per day Alcohol type: wine Patient Tobacco Use Status: Never used Tobacco Smoked in Last 30 Days: No Use of substances other than those prescribed or required for medical reasons: No Advance Directives: No Advance Directives Information Provided: No Do you have a plan to hurt others: No Plan Patient : No service: No 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al status: employed 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 Cognitive needs: No Hearing needs: Yes (right ear hearing aids) Vision needs: No Physical Exam ED Exam Exam: Appearance: Alert. Oriented X3. No acute distress. Eyes: Pupils equal, round and reactive to light. ENT: Pharynx normal. Neck: Normal inspection. Neck supple. No lymph nodes noted. No crepitus CVS: Normal heart rate and rhythm. Pulses normal. Normal S1 and S2 Respiratory: No respiratory distress. Breath sounds normal. No Wheezing. No rales Abdomen: Soft and nontender. No rigidity. No distention. good BS x4 Skin: Skin warm and dry. Normal skin color. Normal skin turgor. Extremities: No lower extremity edema. Neurovascular intact to all extremities. No Lacerations. No Rash Neuro: Oriented X 3. No motor deficit. No sensory deficit. Moving all extermities. No slurred speech Vital Signs: Vital Signs - 24 hr 04/07/25 15:43 04/07/25 16:30 04/07/25 17:30 Temperature 98.6 F Pulse Rate 92 91 92 Respiratory Rate 15 16 16 Blood Pressure 115/81 114/71 114/71 Pulse Oximetry 100 96 99 Oxygen Delivery Method Room Air Room Air Room Air 04/07/25 18:30 04/07/25 20:00 Temperature Pulse Rate 93 100 Respiratory Rate 16 17 Blood Pressure 115/73 116/74 Pulse Oximetry 96 100 Oxygen Delivery Method Room Air Room Air BMI result Body Mass Index 21.0 Medical Decision Making Medical Decision Making [facility] Narrative: Well-appearing no acute distress. Patient's white count is normal. Electrolytes showed slightly elevated AST of 41 ALT of 23 consistent with ETOH use. Patient is alcohol was 110. Will get care team to evaluate patient. IV fluids ordered. Patient's alcohol is proximally 120 monitored in the ED given IV fluid given medication given food symptomatically feel improved will discharge home had a long discussion with patient and family feel comfortable with that plan asset recovery specialist has seen the patient has given advice for additional detox additional Zofran and Ativan given for withdrawal and nausea in stable condition with discharge home Differential Diagnosis Differential Diagnoses: The differential diagnosis associated with the presentation includes Alcohol intoxication, Admission/Observation Consideration of admission/observation: Escalation of care including admission/observation considered Consult Healthcare Provider Management of the patient was discussed with: Sample Color Maker (value stream coach) Lab Data [facility] Lab Attestation statement: I reviewed the patient's lab results. 04/07/25 15:59 04/07/25 15:59 Labs: Lab Results 04/07/25 04/07/25 Range/Units 15:59 20:29 WBC 8.3 (4.8-10.8) X10*3/uL RBC 4.30 (4.20-5.50) X10*6/uL Hgb 12.8 (12.0-16.0) g/dl Hct 37.1 (37.0-47.0) % MCV 86.3 (80.0-98.0) fL MCH 29.8 (27.0-33.0) pg MCHC 34.5 (31.0-35.0) g/dl RDW 13.0 (11.0-16.0) % Plt Count 349 (160-400) X10*3/uL MPV 8.1 L (9.4-12.3) fL Immature Gran % (Auto) 0.2 (0.0-0.4) % Neut % (Auto) 71.1 (45-73) % Lymph % (Auto) 20.7 (20-40) % [place] % (Auto) 6.9 (2-11) % Eos % (Auto) 0.6 (0-4) % Baso % (Auto) 0.5 (0-2) % Lymph # (Auto) 1.7 (1.2-4.9) X10*3/uL [place] # (Auto) 0.6 (0.1-1.2) X10*3/uL Eos # (Auto) 0.1 (0.0-0.4) X10*3/uL Baso # (Auto) 0.0 (0.0-0.2) X10*3/uL Abs Immat Gran (auto) 0.02 (0.00-0.03) X10*3/uL Absolute Neuts (auto) 5.9 (2.0-8.3) x10*3/uL Absolute Nucleated RBC 0.000 (0.0-0.012) X10*3/uL Nucleated RBC % (auto) 0.0 (0.0-0.2) /100WBC Sodium 137 (135-145) mmol/L Potassium 4.0 (3.3-5.1) mmol/L Chloride 100 (96-108) mmol/L Carbon Dioxide 22 (22-29) mmol/L Anion Gap 19 (12-20) BUN 7 L (9-16) mg/dL Creatinine 0.66 (0.5-1.4) mg/dL Estim Creat Clear Calc 113.9 Estimated GFR > 60 Random Glucose 72 (60-115) mg/dL Calcium 9.2 (8.4-10.2) mg/dL Total Bilirubin 0.7 (0.0-1.0) mg/dL AST 41 H (5-31) U/L ALT 23 (0-31) U/L Alkaline Phosphatase 89 (39-117) U/L Troponin I High Sens < 2.7 (<3.5-17.0) ng/L Total Protein 8.0 (6.5-8.0) g/dL Albumin 4.7 (3.5-5.0) g/dL Lipase 23 (8-78) U/L Urine Color Yellow Urine Appearance Clear Urine pH 6.0 (5.0-9.0) Ur Specific [place] 1.015 (1.005-1.025) Urine Protein Trace (Neg-Trace) mg/dL Urine Glucose (UA) Negative (Negative) mg/dL Urine Ketones 80 (Negative) mg/dL Urine Blood Large (3+) H (Negative) Urine Nitrite Negative (Negative) Ur Leukocyte Esterase Trace H (Negative) Salicylates < 5.0 L (15-30) mg/dL Acetaminophen < 3 (<30) mcg/mL Ethyl Alcohol 110 mg/dL Prescription Management I considered prescription management with: Antibiotic (No need for antibiotics) Ativan and anti nausea medication was given Chronic Conditions Alcohol intoxication Social Determinants Patient?s care significantly limited by Social Determinants of Health including: Alcoholism and drug addiction in family and Problems related to primary support group Medications Administered Discontinued Medications Generic Name Dose Route Start Last Admin Trade Name Freq PRN Reason Stop Dose Admin Lorazepam 2 mg 04/07/25 16:50 04/07/25 16:56 Lorazepam 1 Mg Tablet PO 04/07/25 16:51 2 mg ONCE ONE Administration Discharge Plan Discharge Clinical Impression: Alcohol dependence Patient Disposition: Home, Self-Care Instructions: Abuse of Alcohol (DC), Alcohol Dependence (ED) Prescriptions: New ondansetron 4 mg tablet,disintegrating 4 mg PO TID PRN (Reason: nausea and vomiting) 5 Days Qty: 10 0RF lorazepam [Ativan] 1 mg tablet 1 mg PO TID PRN (Reason: anxiety/ withdraw) 3 Days Qty: 10 0RF No Action albuterol sulfate 90 mcg/actuation HFA aerosol inhaler 1 inh inhalation QID PRN (Reason: shortness of breath or wheezing) Qty: 6.7 1RF cyanocobalamin (vitamin B-12) 500 mcg tablet 500 mcg PO DAILY 30 Days Qty: 30 6RF loratadine 10 mg Tablet 10 mg PO DAILY gabapentin 300 mg capsule 300 mg PO BID hydrocortisone [Anusol-HC] 2.5 % cream with perineal applicator 1 appl [place] BEDTIME 14 Days Qty: 30 0RF Rx Instructions: Apply daily at bedtime magnesium 250 mg tablet 250 mg PO BEDTIME cholecalciferol (vitamin D3) 50 mcg (2,000 unit) capsule 50 mcg PO DAILY hydroxyzine HCl 25 mg tablet 25 mg PO BEDTIME Qty: 90 3RF clonazepam 0.5 mg tablet 0.5 mg PO BID PRN (Reason: anxiety, panic attacks) Qty: 30 0RF gabapentin 100 mg capsule 100 mg PO DAILY@1200 lansoprazole 30 mg capsule,delayed release(DR/EC) 30 mg PO DAILY Qty: 90 3RF sucralfate 1 gram tablet 1 g PO BEDTIME Qty: 30 4RF bisacodyl [Dulcolax (bisacodyl)] 5 mg tablet,delayed release (DR/EC) 10 mg PO BEDTIME Qty: 180 4RF Referrals: Harshad Toth MD [Primary Care Provider, Internal Medicine] - 04/10/25 Referral Note: Please go to detox as per asset recovery specialist Print Language: Wallisian
[2025-04-07 17:12] LABS: Acetaminophen LAB < 3 mcg/mL (<30); Salicylate < 5.0 mg/dL (15-30)
[2025-04-07 17:21] LABS: Lipase 23 U/L (8-78)
[2025-04-07 17:30] VITALS: BP 114/71; PULSE 92; RESP 16; O2SAT 99
[2025-04-07 18:30] VITALS: BP 115/73; PULSE 93; RESP 16; O2SAT 96
[2025-04-07 20:00] VITALS: BP 116/74; PULSE 100; RESP 17; O2SAT 100
[2025-04-07 20:34] LABS: Appearance Urine Clear; Glucose Urine UA Negative (Negative); PH 6.0 (5.0-9.0); Specific Gravity - Urine 1.015 (1.005-1.025); UMIC TRIGGER UACC YES
[2025-04-07 20:56] LABS: Cannabinoid Screen Urine Not Detected (Not Detect)
[2025-04-07 21:14] VITALS: BP 116/74; PULSE 100; RESP 17; TEMP 36.6; O2SAT 100
== END 2025-04-07 21:15 | disposition home or self-care (01) ==
PROVIDERS: Emergency Provider Emergency Medicine Emergency Medical Services; PCP Internal Medicine
DX: F10.20 Alcohol dependence, uncomplicated (principal)
CPT/HCPCS: 36415; 80053; 80143; 80179; 80307; 81001; 83690; 84484; 85025; 93005; 99284; 99285; S9485

== ENCOUNTER → 2025-04-07 15:44 | Outpatient (BNV) | payer OTHER, SELFPAY | PROVIDERS: Emergency Provider Emergency Medicine Emergency Medical Services; PCP Internal Medicine; Visit Provider Internal Medicine Cardiovascular Disease | DX: R07.9 Chest pain, unspecified (principal) | CPT/HCPCS: 93010 ==

== ENCOUNTER 2025-04-18 14:58 | Emergency (ER) | payer OTHER, SELFPAY ==
--- NOTE | 2025-04-18 | ECG_ITS ---
Test Reason : CHEST PAIN Blood Pressure : */* mmHG Vent. Rate : 107 BPM Atrial Rate : 107 BPM P-R Int : 140 ms QRS Dur : 76 ms QT Int : 346 ms P-R-T Axes : 43 15 14 degrees QTcB Int : 461 ms Sinus tachycardia Otherwise normal ECG When compared with ECG of 07-Apr-2025 15:44, No significant change was found Referred By: Generic ED Physician Electronically Signed By: FENG HICKEY MD
[2025-04-18 15:18] VITALS: BP 120/69; PULSE 123; O2SAT 96
[2025-04-18 15:27] VITALS: BP 118/77; PULSE 115; RESP 20; TEMP 36.7; O2SAT 94; BMI 21.0
--- NOTE | 2025-04-18 16:42 | PC.NURSE ---
Pt BIBA from home for ETOH/ SI. Pts dad called for pt due to being concerned, pt reporting going through a hard time for past couple of weeks, dirnking more alcohol (2 bottles of wine per day). Pt reporting poor PO intake, anxiety, depression and feels it would be better off if I wasn't here . Pt did report drinking wine today, no drug use. Also reporting chest pain and stomach pain on arrival. Pt changed over into safety clothing, sitter at bedside. Belongings on shelf 3.
[2025-04-18 17:08] LABS: Appearance Urine Clear; Glucose Urine UA Negative (Negative); PH 5.0 (5.0-9.0); Specific Gravity - Urine 1.025 (1.005-1.025)
--- NOTE | 2025-04-18 17:10 | MHC.CARE ---
Jeanne from [facility] co response contacted the care team and indicated that pt's family contacted crisis due to pt's increased ETOH and suicidal ideation. Jeanne noted that she was not evaluated in the community however, wanted to pass on the information obtained prior to her arrival to the ED.
[2025-04-18 17:17] LABS: Cannabinoid Screen Urine Not Detected (Not Detect)
[2025-04-18 17:27] LABS: MANUAL DIFF FLAG NO
[2025-04-18 17:42] LABS: Hematocrit 38.2 % (37.0-47.0); Hemoglobin 13.1 g/dl (12.0-16.0); Imm Gran Abs Auto 0.02 X10*3/uL (0.00-0.03); Imm Gran Pct Auto 0.2 % (0.0-0.4); Lymphocytes Absolute Auto 0.8 X10*3/uL (1.2-4.9); Mean Corpuscular HGB Conc 34.3 g/dl (31.0-35.0); Mean Corpuscular Hemoglobin 30.1 pg (27.0-33.0); Mean Corpuscular Volume 87.8 fL (80.0-98.0); NRBC Abs Auto 0.000 X10*3/uL (0.0-0.012); NRBC Pct Auto 0.0 /100WBC (0.0-0.2); Platelet Count 346 X10*3/uL (160-400); Red Blood Count 4.35 X10*6/uL (4.20-5.50); White Blood Count 10.0 X10*3/uL (4.8-10.8)
--- NOTE | 2025-04-18 17:43 | ED.GENADULT ---
HPI - General Adult General Chief complaint: Psychiatric Symptoms Stated complaint: ETOH Time Seen by Provider: 04/18/25 16:46 Source: patient, RN notes reviewed and old records reviewed Mode of arrival: EMS Limitations: no limitations History of Present Illness ED Provider: Norm PEÑA narrative: 30-year-old female with a past medical history significant for GERD, alcohol use disorder, mood disorder, anxiety, depression presents for evaluation of alcohol abuse. The patient reports that she has been having a tough time in the last more and a half to 2 weeks. She reports she has been drinking in excess. None every day but most days pain She had a bottle and a half of wine last night and 2 glasses of wine this morning. She reports a history of alcohol withdrawal symptoms but no seizure history. She reports depression and anxiety. Her parents are bedside and reports that the patient has made numerous suicidal comments over the last week. She was apparently down by the [place] last week and threatening to jump off of the bridge She reports chills, chest pain, palpitations, abdominal pain Related Data Home Medications ?Medication ?Instructions ?Recorded ?Confirmed gabapentin 100 mg capsule 100 mg PO DAILY@1200 01/08/25 04/18/25 gabapentin 300 mg capsule 300 mg PO BID 02/22/25 04/18/25 bisacodyl 5 mg tablet,delayed 10 mg PO BEDTIME 04/18/25 04/18/25 release (Laxative (bisacodyl)) propranolol 10 mg tablet 10 mg PO BID 04/18/25 04/18/25 Previous Rx's ?Medication ?Instructions ?Recorded hydroxyzine HCl 25 mg tablet 25 mg PO BEDTIME #90 tabs 07/18/24 lansoprazole 30 mg capsule,delayed 30 mg PO DAILY #90 caps 03/21/25 release sucralfate 1 gram tablet 1 g PO BEDTIME #30 tabs 03/21/25 Allergies Allergy/AdvReac Type Severity Reaction Status Date / Time cephalexin Allergy Severe Difficulty Verified 04/18/25 15:29 Breathing Penicillins Allergy Unknown Verified 04/18/25 15:29 prednisone AdvReac Anxiety Verified 04/18/25 15:29 Review of Systems Constitutional: Constitutional: Reports body ache(s), Reports chills, Denies fever(s), Reports headache(s), Reports lethargy, Reports malaise and Reports weakness Eyes: Eyes: Denies blurry vision ENT: Denies vertigo, Denies dizziness and Reports headache(s) Cardiovascular: Cardiovascular: Reports chest pain, Denies syncope, Reports rapid heart rate and Denies dyspnea on exertion Respiratory: Respiratory: Denies cough and Denies dyspnea on exertion Gastrointestinal: Gastrointestinal: Reports abdominal pain, Denies nausea and Denies vomiting Genitourinary: Genitourinary: Denies dysuria and Denies pelvic pain Musculoskeletal: Musculoskeletal: Denies back pain Integumentary/Breasts: Skin/Breast: Denies rash Neurologic: Denies vertigo, Denies dizziness, Denies syncope, Reports headache(s) and Reports weakness Psychiatric: Psychiatric: Reports anxiety, Reports depression, Denies visual hallucinations, Denies homicidal ideation and Reports suicidal ideation [facility] Past Medical History Medical History History of colitis Fatigue Hypotension Anemia Salmonella Abnormal findings on esophagogastroduodenoscopy (EGD) Alcohol use disorder Epigastric abdominal pain ROMY (generalized anxiety disorder) Acute bronchitis Open wound of right knee Cellulitis of buttock, left Cochlear implant in place Encounter to establish care Panic attacks Severe anxiety Anxiety Surgical History History of esophagogastroduodenoscopy Family History Family History Father BP (high blood pressure) Mother Breast cancer Other Mental health disorder Social History Social History Household Members: Family Housing: [facility] Are you a primary home care manager rn to a significant other at home: No Do you presently have visiting nurse or other home services: No Alcohol intake: current Alcohol intake frequency: 3 or more drinks per day Alcohol type: wine Patient Tobacco Use Status: Never used Tobacco Smoked in Last 30 Days: No Use of substances other than those prescribed or required for medical reasons: No Advance Directives: No Advance Directives Information Provided: Yes Patient : No service: No 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al status: employed 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 Cognitive needs: No Hearing needs: Yes (right ear hearing aids) Vision needs: No Physical Exam ED Vital Signs: Vital Signs - 24 hr 04/18/25 15:27 04/18/25 19:46 04/18/25 21:16 Temperature 98.1 F 97.3 F Pulse Rate 115 H 120 H Respiratory Rate 20 16 20 Blood Pressure 118/77 127/75 Pulse Oximetry 94 97 Oxygen Delivery Method Room Air Room Air 04/18/25 22:00 04/19/25 01:30 04/19/25 07:52 Temperature 97.7 F 97.4 F Pulse Rate 106 H 110 H Respiratory Rate 16 16 18 Blood Pressure 101/70 110/66 Pulse Oximetry 99 100 Oxygen Delivery Method Room Air Room Air 04/19/25 08:00 Temperature Pulse Rate 110 H Respiratory Rate Blood Pressure 110/66 Pulse Oximetry Oxygen Delivery Method BMI result Body Mass Index 21.0 Const General: healthy appearing, comfortable, no acute distress, alert and awake Nutritional Appearance: well nourished Orientation/consciousness: patient oriented x3 HENMT Head: Yes normocephalic and Yes atraumatic Eyes Eyelids: Yes eyelids normal Conjunctivae: conjunctivae normal Sclerae: sclerae normal Corneas: corneas normal Pupils: Equal, round and reactive pupils present EOM: EOMs intact bilaterally Neck Neck: Yes full ROM Resp Effort & Inspection: normal respiratory effort, able to speak in complete sentences, no audible wheezes and not labored Auscultation: clear to auscultation bilaterally Cardio Rate: regular rate Rhythm: regular rhythm GI Inspection: No distended Palpation (GI): Soft to palpation, not firm, nontender, no guarding and not rigid Skin General skin exam: elasticity normal Neuro General: patient oriented x3 Cranial nerves: Yes CN's II-XII intact bilaterally, Yes Equal, round and reactive pupils present and Yes Bilaterally intact EOM present Cognition (Neuro): normal cognition Extrem Other: Moving all extremities well without any obvious deformities Course Reevaluation(s) Reevaluation #1: The patient is seen with the care team and will be a follow up for the morning. She was placed on a section 12. Her story was not adding up. Her parents were initially very concerned about suicidal comments and initially called [facility] today due to suicidal comments. They then reported there was a misunderstanding and the patient was not suicidal after initially tell me the patient [place] with intent to jump off the bridge. I feel it is best to hold the patient overnight to be evaluated when 100% clinically sober. The patient has been here in the past for detox and ultimately fell through Time: 23:21 Reevaluation #2: Time: :24 Date: 04/19/25 Provider: Marco Batres DO Physician observation ended. Patient has been cleared for discharge by the CARE team.not interested in detox Time: :24 Medications Administered Generic Name Dose Route Start Last Admin Trade Name Freq PRN Reason Stop Dose Admin Bisacodyl 10 mg 04/18/25 22:00 04/18/25 23:07 Bisacodyl 5 Mg Tablet. PO Not Given BEDTIME KATHIE Gabapentin 300 mg 04/18/25 22:00 04/19/25 08:00 Gabapentin 300 Mg Capsule PO 300 mg BID KATHIE Administration Hydroxyzine HCl 25 mg 04/18/25 22:00 04/18/25 23:07 Hydroxyzine Hcl 25 Mg Tablet PO Not Given BEDTIME KATHIE Lorazepam 2 mg 04/18/25 20:46 04/19/25 07:59 Lorazepam 1 Mg Tablet PO 2 mg Q4H PRN Administration Alcohol Withdrawal Omeprazole 20 mg 04/19/25 06:30 04/19/25 06:43 Omeprazole 20 Mg Capsule.Dr PO Not Given DAILY@0630 KATHIE Propranolol HCl 10 mg 04/18/25 22:00 04/19/25 08:00 Propranolol Hcl 10 Mg Tablet PO 10 mg BID KATHIE Administration Protocol Sucralfate 1 gm 04/18/25 22:00 04/18/25 23:07 Sucralfate 1 Gm Tablet PO Not Given BEDTIME KATHIE Discontinued Medications Generic Name Dose Route Start Last Admin Trade Name Freq PRN Reason Stop Dose Admin Lorazepam 2 mg 04/18/25 16:57 04/18/25 17:03 Lorazepam 1 Mg Tablet PO 04/18/25 16:58 2 mg ONCE ONE Administration Ondansetron HCl 4 mg 04/18/25 20:47 04/18/25 21:05 Ondansetron Odt 4 Mg Tab.Rapdis TRANSLINGU 04/18/25 20:48 4 mg ONCE ONE Administration Medical Decision Making Medical Decision Making MDM Narrative: 30-year-old female with past medical history as above presents for evaluation of alcohol abuse as well as depression with suicidal thoughts. She tells me that she is not actively suicidal but has made several suicidal comments over the last week. She reports a positive review of systems but is quite well appearing. She is mildly tachycardic your EKG is sinus tachycardia at 107. No arrhythmia noted. Plan for medical clearance was labs, troponin due to her chest pain, LFTs given her alcohol abuse. She will require care team consult Differential Diagnosis Differential Diagnoses: The differential diagnosis associated with the presentation includes Alcohol abuse Alcohol use disorder Depression Anxiety Suicidal ideation Alcohol withdrawal Metabolic abnormality Lab Data MDM Lab Attestation statement: I reviewed the patient's lab results. 04/18/25 17:22 04/18/25 17:22 Labs: Lab Results 04/18/25 04/18/25 04/18/25 Range/Units 16:57 17:22 17:22 WBC 10.0 (4.8-10.8) X10*3/uL RBC 4.35 (4.20-5.50) X10*6/uL Hgb 13.1 (12.0-16.0) g/dl Hct 38.2 (37.0-47.0) % MCV 87.8 (80.0-98.0) fL MCH 30.1 (27.0-33.0) pg MCHC 34.3 (31.0-35.0) g/dl RDW 12.8 (11.0-16.0) % Plt Count 346 (160-400) X10*3/uL MPV 8.2 L (9.4-12.3) fL Immature Gran % (Auto) 0.2 (0.0-0.4) % Neut % (Auto) 88.4 H (45-73) % Lymph % (Auto) 8.2 L (20-40) % [place] % (Auto) 2.8 (2-11) % Eos % (Auto) 0.1 (0-4) % Baso % (Auto) 0.3 (0-2) % Lymph # (Auto) 0.8 L (1.2-4.9) X10*3/uL [place] # (Auto) 0.3 (0.1-1.2) X10*3/uL Eos # (Auto) 0.0 (0.0-0.4) X10*3/uL Baso # (Auto) 0.0 (0.0-0.2) X10*3/uL Abs Immat Gran (auto) 0.02 (0.00-0.03) X10*3/uL Absolute Neuts (auto) 8.9 H (2.0-8.3) x10*3/uL Absolute Nucleated RBC 0.000 (0.0-0.012) X10*3/uL Nucleated RBC % (auto) 0.0 (0.0-0.2) /100WBC Hold Purple Top Sodium 139 (135-145) mmol/L Potassium 3.9 (3.3-5.1) mmol/L Chloride 104 (96-108) mmol/L Carbon Dioxide 20 L (22-29) mmol/L Anion Gap 19 (12-20) BUN 16 (9-16) mg/dL Creatinine 0.73 (0.5-1.4) mg/dL Estim Creat Clear Calc 102.9 Estimated GFR > 60 Random Glucose 84 (60-115) mg/dL Calcium 9.0 (8.4-10.2) mg/dL Total Bilirubin 0.3 (0.0-1.0) mg/dL AST 78 H (5-31) U/L ALT 97 H (0-31) U/L Alkaline Phosphatase 99 (39-117) U/L Troponin I High Sens < 2.7 (<3.5-17.0) ng/L Total Protein 8.1 H (6.5-8.0) g/dL Albumin 5.0 (3.5-5.0) g/dL Lipase 17 Cancelled (8-78) U/L Beta HCG, Quant < 2 mIU/mL Urine Color Yellow Urine Appearance Clear Urine pH 5.0 (5.0-9.0) Ur Specific [place] 1.025 (1.005-1.025) Urine Protein Trace (Neg-Trace) mg/dL Urine Glucose (UA) Negative (Negative) mg/dL Urine Ketones 15 (Negative) mg/dL Urine Blood Negative (Negative) Urine Nitrite Negative (Negative) Ur Leukocyte Esterase Negative (Negative) Salicylates (15-30) mg/dL Urine Opiates Screen Not Detected (Not Detect) Ur Buprenorphine Scrn Not Detected (Not Detect) ng/mL Ur Oxycodone Screen Not Detected (Not Detect) ng/mL Urine Methadone Screen Not Detected (Not Detect) ng/mL Urine Fentanyl Screen Not Detected (Not Detect) Acetaminophen (<30) mcg/mL Ur Barbiturates Screen Not Detected (Not Detect) Ur Phencyclidine Scrn Not Detected (Not Detect) Ur Amphetamines Screen Not Detected (Not Detect) U Benzodiazepines Scrn Not Detected (Not Detect) Urine Cocaine Screen Not Detected (Not Detect) U Marijuana (THC) Screen Not Detected (Not Detect) Ethyl Alcohol mg/dL 04/18/25 04/18/25 Range/Units 17:22 17:39 WBC (4.8-10.8) X10*3/uL RBC (4.20-5.50) X10*6/uL Hgb (12.0-16.0) g/dl Hct (37.0-47.0) % MCV (80.0-98.0) fL MCH (27.0-33.0) pg MCHC (31.0-35.0) g/dl RDW (11.0-16.0) % Plt Count (160-400) X10*3/uL MPV (9.4-12.3) fL Immature Gran % (Auto) (0.0-0.4) % Neut % (Auto) (45-73) % Lymph % (Auto) (20-40) % Jewell % (Auto) (2-11) % Eos % (Auto) (0-4) % Baso % (Auto) (0-2) % Lymph # (Auto) (1.2-4.9) X10*3/uL [place] # (Auto) (0.1-1.2) X10*3/uL Eos # (Auto) (0.0-0.4) X10*3/uL Baso # (Auto) (0.0-0.2) X10*3/uL Abs Immat Gran (auto) (0.00-0.03) X10*3/uL Absolute Neuts (auto) (2.0-8.3) x10*3/uL Absolute Nucleated RBC (0.0-0.012) X10*3/uL Nucleated RBC % (auto) (0.0-0.2) /100WBC Hold Purple Top SEE NOTE Sodium (135-145) mmol/L Potassium (3.3-5.1) mmol/L Chloride (96-108) mmol/L Carbon Dioxide (22-29) mmol/L Anion Gap (12-20) BUN (9-16) mg/dL Creatinine (0.5-1.4) mg/dL Estim Creat Clear Calc Estimated GFR Random Glucose (60-115) mg/dL Calcium (8.4-10.2) mg/dL Total Bilirubin (0.0-1.0) mg/dL AST (5-31) U/L ALT (0-31) U/L Alkaline Phosphatase (39-117) U/L Troponin I High Sens (<3.5-17.0) ng/L Total Protein (6.5-8.0) g/dL Albumin (3.5-5.0) g/dL Lipase (8-78) U/L Beta HCG, Quant Cancelled mIU/mL Urine Color Urine Appearance Urine pH (5.0-9.0) Ur Specific [place] (1.005-1.025) Urine Protein (Neg-Trace) mg/dL Urine Glucose (UA) (Negative) mg/dL Urine Ketones (Negative) mg/dL Urine Blood (Negative) Urine Nitrite (Negative) Ur Leukocyte Esterase (Negative) Salicylates < 5.0 L (15-30) mg/dL Urine Opiates Screen (Not Detect) Ur Buprenorphine Scrn (Not Detect) ng/mL Ur Oxycodone Screen (Not Detect) ng/mL Urine Methadone Screen (Not Detect) ng/mL Urine Fentanyl Screen (Not Detect) Acetaminophen < 3 (<30) mcg/mL Ur Barbiturates Screen (Not Detect) Ur Phencyclidine Scrn (Not Detect) Ur Amphetamines Screen (Not Detect) U Benzodiazepines Scrn (Not Detect) Urine Cocaine Screen (Not Detect) U Marijuana (THC) Screen (Not Detect) Ethyl Alcohol 207 mg/dL Discharge Plan Discharge Clinical Impression: Alcohol use disorder, Suicidal ideation Patient Disposition: Home, Self-Care Additional Instructions: You were seen in our Emergency Department today for treatment of a behavioral health issue. It is important after your visit that you follow up with either your behavioral health provider or a primary care doctor within 7 days.? If you have trouble finding a therapist you can reach out to [address] [phone] The National Suicide and Crisis Lifeline can be reached 7 days a week 24 hours a day.? Call 988 to speak with someone.? Return for any worsening symptoms or concerns such as thoughts of self harm or harm to others. Please call 911 if you feel your mental health is worsening.? Alcohol use disorder You were seen in the Emergency Department today for treatment of alcohol use disorder.? You may have been given medications to help with your withdrawal symptoms.? Please do not drink alcohol with them. This is very dangerous and can cause respiratory depression or other adverse reactions depending on the medication. If you would like to cut down or stop your alcohol use please consider calling our outpatient Addiction Treatment office:? [facility] (-[id number]) [address] [place] [phone] You have also been given a list of treatment providers in the area that can assist as well.? If you experience seizures, vomiting blood, black stools, falls, severe headache, chest pain, fevers, trouble breathing, hallucinations or any other concerns you need to call 911 or seek immediate care. Please stay hydrated. Prescriptions: No Action gabapentin 300 mg capsule 300 mg PO BID propranolol 10 mg tablet 10 mg PO BID bisacodyl [Laxative (bisacodyl)] 5 mg tablet,delayed release (DR/EC) 10 mg PO BEDTIME hydroxyzine HCl 25 mg tablet 25 mg PO BEDTIME Qty: 90 3RF gabapentin 100 mg capsule 100 mg PO DAILY@1200 lansoprazole 30 mg capsule,delayed release(DR/EC) 30 mg PO DAILY Qty: 90 3RF sucralfate 1 gram tablet 1 g PO BEDTIME Qty: 30 4RF Interventions: [place]-Suicide Risk Severity Scale Last Done: 04/18/25 15:30 Print Language: Lithuanian
[2025-04-18 17:56] LABS: Troponin-I High Sensitivity < 2.7 ng/L (<3.5-17.0)
[2025-04-18 18:01] LABS: Alanine Aminotransferase 97 U/L (0-31); Albumin Level 5.0 g/dL (3.5-5.0); Alkaline Phosphatase 99 U/L (39-117); Anion Gap 19 (12-20); Aspartate Amino Transferase 78 U/L (5-31); Blood Urea Nitrogen 16 mg/dL (9-16); Calcium 9.0 mg/dL (8.4-10.2); Carbon Dioxide 20 mmol/L (22-29); Chloride 104 mmol/L (96-108); Creatinine Clr Calc Pharmacy 102.9; Estimated Glomerular Filt Rate > 60; Lipase 17 U/L (8-78); Potassium 3.9 mmol/L (3.3-5.1); Sodium 139 mmol/L (135-145); Total Protein 8.1 g/dL (6.5-8.0)
[2025-04-18 18:07] LABS: Acetaminophen LAB < 3 mcg/mL (<30); Salicylate < 5.0 mg/dL (15-30)
[2025-04-18 19:46] VITALS: RESP 16
--- NOTE | 2025-04-18 19:46 | PC.NURSE ---
This RN assumed care of patient at 1845, patient has mom at bedside. Mom requesting for patient to be brought out to the ER for detox services, pt requesting to leave. This RN educated mom and patient on plan of care for CARE team assessment and need for assessment due to previous suicidal statements made. Mom advocating for patient to go due to not wanting patient to be here in the pod. This RN again acknowledged said request but again educated mom on need to stay for evaluation per provider request and safety of the patient. Mom explained to this RN that she made that statement because she was drunk, she isn't suicidal now . This RN acknowledged statement but proceeded to educate mom that due to a suicidal comment being made, for the patient's safety, she will need to be evaluated by CARE team. This RN spoke to CARE help desk team leader Rebecca Altman who stated she will see the patient. CARE help desk team leader currently speaking with mom and patient
--- NOTE | 2025-04-18 21:10 | PC.NURSE ---
RE; med rec This RN confirmed medications with patient verbally, pt reports she took all medications yesterday
--- NOTE | 2025-04-18 21:12 | PC.NURSE ---
Pt much calmer at this time, requesting night medications, PA trent aware that med rec is in
[2025-04-18 21:16] VITALS: BP 127/75; PULSE 120; RESP 20; TEMP 36.3; O2SAT 97
--- NOTE | 2025-04-18 21:56 | PHA.MEDREC ---
Pharmacy Consult ? Medication Reconciliation Pharmacy has completed the medication reconciliation. pharmacy has reviewed med rec done by nursing
[2025-04-18 22:00] VITALS: RESP 16
--- NOTE | 2025-04-18 23:47 | PC.NURSE ---
Late entry: Pt refused all pm medications but then woke up and asked for Gabapentin only
[2025-04-19 01:30] VITALS: BP 101/70; PULSE 106; RESP 16; TEMP 36.5; O2SAT 99
[2025-04-19 07:52] VITALS: BP 110/66; PULSE 110; RESP 18; TEMP 36.3; O2SAT 100
[2025-04-19 08:00] VITALS: BP 110/66; PULSE 110
--- NOTE | 2025-04-19 08:13 | HO.NURTONUR ---
Pt reported to RN this morning that she felt like she was withdrawing from alcohol. CIWA done and is 9, vitals assessed. Pt agreed to the PRN ativan, took all her meds with no issues. Pt reporting feeling anxious. Calm and cooperative.
[2025-04-19 09:31] VITALS: BP 110/66; PULSE 110; RESP 16; TEMP -17.7; TEMP 0
== END 2025-04-19 09:48 | disposition home or self-care (01) ==
PROVIDERS: Physician Assistant; Emergency Provider Emergency Medicine; PCP Internal Medicine
DX: R45.851 Suicidal ideations (principal); F10.10 Alcohol abuse, uncomplicated; Y90.7 Blood alcohol level of 200-239 mg/100 ml; F32.A Depression, unspecified
CPT/HCPCS: 36415; 80053; 80143; 80179; 80307; 81003; 83690; 84484; 84702; 85025; 93005; 99285; S9485

== ENCOUNTER → 2025-04-18 15:20 | Outpatient (BNV) | payer OTHER, SELFPAY | PROVIDERS: PCP Internal Medicine; Visit Provider Internal Medicine Cardiovascular Disease | DX: R00.0 Tachycardia, unspecified (principal) | CPT/HCPCS: 93010 ==

== ENCOUNTER 2025-04-20 20:25 | Emergency (ER) | payer OTHER, SELFPAY ==
[2025-04-20 20:31] VITALS: BP 129/80; PULSE 114; O2SAT 96
[2025-04-20 20:34] VITALS: BP 114/74; PULSE 116; RESP 16; TEMP 36.8; O2SAT 94; BMI 22.1
--- NOTE | 2025-04-20 20:38 | ECG_ITS ---
Test Reason : CP Blood Pressure : */* mmHG Vent. Rate : 102 BPM Atrial Rate : 102 BPM P-R Int : 156 ms QRS Dur : 80 ms QT Int : 348 ms P-R-T Axes : 42 17 18 degrees QTcB Int : 453 ms Sinus tachycardia Otherwise normal ECG When compared with ECG of 18-Apr-2025 15:20, No significant change was found Referred By: Generic ED Physician Electronically Signed By: FENG HICKEY MD
--- NOTE | 2025-04-20 20:56 | PC.NURSE ---
Addendum entered by Linda Vaca RN 04/20/25 21:03: patient requested meds to be given to father who is at bedside currently. medications bagged up and given to father in front of patient. Original Note: patient denies SI/HI, safety search done by security, 9 bottles of prescribed medication found, patients father is here, will determine if meds will be sent home vs pharmacy per patients preference. no alcohol found on patient.
[2025-04-20 21:12] LABS: Hematocrit 37.6 % (37.0-47.0); Hemoglobin 12.8 g/dl (12.0-16.0); Imm Gran Abs Auto 0.00 X10*3/uL (0.00-0.03); Imm Gran Pct Auto 0.0 % (0.0-0.4); Lymphocytes Absolute Auto 1.5 X10*3/uL (1.2-4.9); MANUAL DIFF FLAG NO; Mean Corpuscular HGB Conc 34.0 g/dl (31.0-35.0); Mean Corpuscular Hemoglobin 29.8 pg (27.0-33.0); Mean Corpuscular Volume 87.6 fL (80.0-98.0); NRBC Abs Auto 0.000 X10*3/uL (0.0-0.012); NRBC Pct Auto 0.0 /100WBC (0.0-0.2); Platelet Count 302 X10*3/uL (160-400); Red Blood Count 4.29 X10*6/uL (4.20-5.50); White Blood Count 4.7 X10*3/uL (4.8-10.8)
[2025-04-20 21:38] LABS: Alanine Aminotransferase 84 U/L (0-31); Albumin Level 4.6 g/dL (3.5-5.0); Alkaline Phosphatase 94 U/L (39-117); Anion Gap 16 (12-20); Aspartate Amino Transferase 64 U/L (5-31); Blood Urea Nitrogen 10 mg/dL (9-16); Calcium 8.6 mg/dL (8.4-10.2); Carbon Dioxide 22 mmol/L (22-29); Chloride 104 mmol/L (96-108); Creatinine Clr Calc Pharmacy 102.8; Estimated Glomerular Filt Rate > 60; Lipase 21 U/L (8-78); Magnesium 2.2 mg/dL (1.6-2.6); Potassium 3.6 mmol/L (3.3-5.1); Sodium 138 mmol/L (135-145); Total Protein 7.6 g/dL (6.5-8.0)
[2025-04-20 21:39] LABS: Troponin-I High Sensitivity < 2.7 ng/L (<3.5-17.0)
[2025-04-20] MEDS: diazePAM 10 MG/2 ML CARTRIDGE 5 MG IVPUSH (22:07)
--- NOTE | 2025-04-20 22:07 | PC.NURSE ---
medicated per sep, notified CONNER Mckeon
--- NOTE | 2025-04-20 22:43 | ED.GENADULT ---
HPI - General Adult General Chief complaint: ETOH/Substance Use Stated complaint: Etoh withdrawal Time Seen by Provider: 04/20/25 21:32 Source: patient Limitations: no limitations History of Present Illness ED Provider: Araceli Duncan PA-C HPI narrative: 30-year-old female with a history of alcohol use disorder, anxiety with panic attack, migraine, GERD, polyarthralgia, vertigo, somatoform disorder, cognitive impairment, chronic neck pain, who presents requesting detox. Patient states she has been binge drinking for the past 3 weeks, consuming 1-1-1/2 bottles of wine daily. Patient last drank prior to arrival. Patient is requesting detox. patient has experienced alcohol withdrawal in the past without seizure activity. Denies SI or HI. Related Data Home Medications ?Medication ?Instructions ?Recorded ?Confirmed gabapentin 100 mg capsule 100 mg PO DAILY@1200 01/08/25 04/18/25 gabapentin 300 mg capsule 300 mg PO BID 02/22/25 04/18/25 bisacodyl 5 mg tablet,delayed 10 mg PO BEDTIME 04/18/25 04/18/25 release (Laxative (bisacodyl)) propranolol 10 mg tablet 10 mg PO BID 04/18/25 04/18/25 Previous Rx's ?Medication ?Instructions ?Recorded hydroxyzine HCl 25 mg tablet 25 mg PO BEDTIME #90 tabs 07/18/24 lansoprazole 30 mg capsule,delayed 30 mg PO DAILY #90 caps 03/21/25 release sucralfate 1 gram tablet 1 g PO BEDTIME #30 tabs 03/21/25 Allergies Allergy/AdvReac Type Severity Reaction Status Date / Time cephalexin Allergy Severe Difficulty Verified 04/20/25 20:42 Breathing Penicillins Allergy Unknown Verified 04/20/25 20:42 prednisone AdvReac Anxiety Verified 04/20/25 20:42 Review of Systems Review of Systems: Yes all other systems are reviewed and are negative Constitutional: Constitutional: Denies fatigue, Denies fever(s) and Reports headache(s) ENT: Reports headache(s) Cardiovascular: Cardiovascular: Reports chest pain Gastrointestinal: Gastrointestinal: Denies abdominal pain, Denies nausea and Denies vomiting Neurologic: Reports headache(s) Endocrine: Endocrine: Denies fatigue PMFSH Past Medical History Attestation statement: The following information was validated with the patient. Medical History History of colitis Fatigue Hypotension Anemia Salmonella Abnormal findings on esophagogastroduodenoscopy (EGD) Alcohol use disorder Epigastric abdominal pain ROMY (generalized anxiety disorder) Acute bronchitis Open wound of right knee Cellulitis of buttock, left Cochlear implant in place Encounter to establish care Panic attacks Severe anxiety Anxiety Surgical History History of esophagogastroduodenoscopy Family History Family History Father BP (high blood pressure) Mother Breast cancer Other Mental health disorder Social History Social History Household Members: Family Housing: [facility] [place] Are you a primary wound care nurse to a significant other at home: No Do you presently have visiting nurse or other home services: No Alcohol intake: current Alcohol intake frequency: 3 or more drinks per day Alcohol type: wine Patient Tobacco Use Status: Never used Tobacco Smoked in Last 30 Days: No Use of substances other than those prescribed or required for medical reasons: No Advance Directives: No Advance Directives Information Provided: No Do you have a plan to hurt others: No Plan service: No 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al status: employed 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 [employer] Cognitive needs: No Hearing needs: Yes (right ear hearing aids) Vision needs: No Physical Exam ED Vital Signs: Vital Signs - 24 hr 04/20/25 20:34 04/20/25 23:35 04/20/25 23:46 Temperature 98.3 F 97.7 F 97.7 F Pulse Rate 116 H 128 H 128 H Respiratory Rate 16 20 20 Blood Pressure 114/74 124/89 124/89 Pulse Oximetry 94 95 95 Oxygen Delivery Method Room Air Room Air Room Air BMI result Body Mass Index 22.1 Const Other: Awake, appears older than stated age Orientation/consciousness: patient oriented x3 Resp Effort & Inspection: normal respiratory effort Cardio Other: normal peripheral perfusion Skin Other: warm dry no rash Neuro General: patient oriented x3, gait normal, no focal motor deficits and CN's II-XI intact bilaterally Psych Other: hostile and belligerent at times, yelling out demanding medication, verbally abusive toward her father who is at bedside, crying at times Course Reevaluation(s) Reevaluation #1: shortly after assessing the patient, I was walking by the stretcher,........ the father is complaining that no one has assessed the patient and that they has been there for hours. I have reminded him that I had just assessed the patient, that I had placed orders for medication, that her labs are in process, that once I can medically clear her, she will be referred to the chemical recovery operator. Reevaluation #2: The recovery team assessed the patient, apparently she has been yelling in the hallway demanding gabapentin, she is also verbally abusive toward her father, multiple nurses have had to ask her to lower her voice, that she has been disruptive to other patients. The father is now again complaining that she is not being treated. I again reiterated that she has been assessed that multiple nurses are tending to her care, that she has received medication, that the chemical recovery operator is here in present right now next to me, trying to assessed the patient, the patient is declining detox and wants to leave. The patient is stating your treating me like a piece of garbage . Erica from the recovery team again asked the patient if she would like to stay for detox, the patient declines and wants to be discharged. I asked the patient if she would like a list of outpatient resources for detox, she declines, she states I already have them at home . We will do so now. Medications Administered Discontinued Medications Generic Name Dose Route Start Last Admin Trade Name Freq PRN Reason Stop Dose Admin Diazepam 5 mg 04/20/25 21:35 04/20/25 22:07 Diazepam 10 Mg/2 Ml Cartridge IVPUSH 04/20/25 21:36 5 mg STAT STA Administration Sodium Chloride 1,000 mls @ 999 mls/hr 04/20/25 21:45 04/20/25 22:52 Ns IV 04/20/25 22:45 Infused .Q1H1M KATHIE Infusion Medical Decision Making Medical Decision Making MDM Narrative: 30-year-old female with a history of alcohol use disorder, anxiety with panic attack, migraine, GERD, polyarthralgia, vertigo, somatoform disorder, cognitive impairment, chronic neck pain, who presents requesting detox. Patient states she has been binge drinking for the past 3 weeks, consuming 1-1-1/2 bottles of wine daily. Patient last drank prior to arrival. Patient is requesting detox. patient has experienced alcohol withdrawal in the past without seizure activity. Denies SI or HI. problem: Alcohol use disorder, psychiatric illness History: Per patient I have considered the following differential diagnoses: SI, HI, decompensated psychiatric illness, drug/ alcohol intoxication Plan: The patient is here requesting detox, we will obtain screening labs including ethanol and drug screen, we will place a CIWA scale, medicating with Valium and IV fluid. We will place a consult for chemical recovery operator. I have independently reviewed the following tests: Labs: No leukocytosis, not anemic, no electrolyte abnormality, not , ethanol 278, drug screen pending Differential Diagnosis Differential Diagnoses: The differential diagnosis associated with the presentation includes see medical decision-making Admission/Observation Consideration of admission/observation: Escalation of care including admission/observation considered may require detox bed Consult Healthcare Provider Management of the patient was discussed with: Behavioral Health Provider Lab Data MDM Lab Attestation statement: I reviewed the patient's lab results. 04/20/25 21:05 04/20/25 21:05 Labs: Lab Results 04/20/25 Range/Units 21:05 WBC 4.7 L (4.8-10.8) X10*3/uL RBC 4.29 (4.20-5.50) X10*6/uL Hgb 12.8 (12.0-16.0) g/dl Hct 37.6 (37.0-47.0) % MCV 87.6 (80.0-98.0) fL MCH 29.8 (27.0-33.0) pg MCHC 34.0 (31.0-35.0) g/dl RDW 12.4 (11.0-16.0) % Plt Count 302 (160-400) X10*3/uL MPV 8.3 L (9.4-12.3) fL Immature Gran % (Auto) 0.0 (0.0-0.4) % Neut % (Auto) 55.5 (45-73) % Lymph % (Auto) 32.8 (20-40) % [place] % (Auto) 9.6 (2-11) % Eos % (Auto) 1.5 (0-4) % Baso % (Auto) 0.6 (0-2) % Lymph # (Auto) 1.5 (1.2-4.9) X10*3/uL [place] # (Auto) 0.5 (0.1-1.2) X10*3/uL Eos # (Auto) 0.1 (0.0-0.4) X10*3/uL Baso # (Auto) 0.0 (0.0-0.2) X10*3/uL Abs Immat Gran (auto) 0.00 (0.00-0.03) X10*3/uL Absolute Neuts (auto) 2.6 (2.0-8.3) x10*3/uL Absolute Nucleated RBC 0.000 (0.0-0.012) X10*3/uL Nucleated RBC % (auto) 0.0 (0.0-0.2) /100WBC Sodium 138 (135-145) mmol/L Potassium 3.6 (3.3-5.1) mmol/L Chloride 104 (96-108) mmol/L Carbon Dioxide 22 (22-29) mmol/L Anion Gap 16 (12-20) BUN 10 (9-16) mg/dL Creatinine 0.65 (0.5-1.4) mg/dL Estim Creat Clear Calc 102.8 Estimated GFR > 60 Random Glucose 180 H (60-115) mg/dL Calcium 8.6 (8.4-10.2) mg/dL Magnesium 2.2 (1.6-2.6) mg/dL Total Bilirubin 0.2 (0.0-1.0) mg/dL AST 64 H (5-31) U/L ALT 84 H (0-31) U/L Alkaline Phosphatase 94 (39-117) U/L Troponin I High Sens < 2.7 (<3.5-17.0) ng/L Total Protein 7.6 (6.5-8.0) g/dL Albumin 4.6 (3.5-5.0) g/dL Lipase 21 (8-78) U/L Beta HCG, Quant < 2 mIU/mL Ethyl Alcohol 278 mg/dL Discharge Plan Discharge Clinical Impression: Alcohol use disorder, Alcohol intoxication Patient Disposition: Home, Self-Care Instructions: Alcohol Intoxication (ED), Alcohol Use Disorder (ED) Additional Instructions: you were assessed in the emergency department, the recovery team assessed you as well, you declined detox at this time. Alcohol use disorder You were seen in the Emergency Department today for treatment of alcohol use disorder. If you would like to cut down or stop your alcohol use please consider calling our outpatient Addiction Treatment office:? [facility] (M-F [id number]) [address] You have also been given a list of treatment providers in the area that can assist as well.? If you experience seizures, vomiting blood, black stools, falls, severe headache, chest pain, fevers, trouble breathing, hallucinations or any other concerns you need to call 911 or seek immediate care. Please stay hydrated. Prescriptions: No Action gabapentin 300 mg capsule 300 mg PO BID propranolol 10 mg tablet 10 mg PO BID bisacodyl [Laxative (bisacodyl)] 5 mg tablet,delayed release (DR/EC) 10 mg PO BEDTIME hydroxyzine HCl 25 mg tablet 25 mg PO BEDTIME Qty: 90 3RF gabapentin 100 mg capsule 100 mg PO DAILY@1200 lansoprazole 30 mg capsule,delayed release(DR/EC) 30 mg PO DAILY Qty: 90 3RF sucralfate 1 gram tablet 1 g PO BEDTIME Qty: 30 4RF Interventions: ED Discharge Assessment Last Done: 04/20/25 23:46 Discharge Date/Time: 04/20/25 23:46 Print Language: [place]
--- NOTE | 2025-04-20 22:55 | PC.NURSE ---
pt requested gabapentin. Felecia ZAMORA made aware of this.
--- NOTE | 2025-04-20 23:18 | PC.NURSE ---
patients father coming up to nurses station multiple times requested plan of care for patient. father and patient was educated on plan of care multiple times by this RN, Raven PRIETO and Araceli ZAMORA. patient and father verbalized understanding they were waiting for Recovery to come speak to patient to establish plan for detox. patient had two separate moments of screaming in the hallway to her father and was asked to speak at a lower voice by another RN witnessed by this RN. Felecia educated on plan of care again witnessed by this RN. patient is stating she was yelled at multiple times. reassured patient and PA reassured patient she is not being yelled at. patient is speaking to Erica from Care team at this time. patient states she wants to be discharged. Felecia ZAMORA made aware and came to speak with patient. patient continues to request discharge.
--- NOTE | 2025-04-20 23:18 | PC.NURSE ---
Pt was spoken to several times, to lower her voice after yelling to her father, demanding medication, stating he was lying that she wanted to go home.
[2025-04-20 23:35] VITALS: BP 124/89; PULSE 128; RESP 20; TEMP 36.5; O2SAT 95
--- NOTE | 2025-04-20 23:35 | MHC.EDTECH ---
Pt came for ETOH. The PT had a safety check done by security. Her medications were given to the nurse. At 2100 the PT started screaming for her medication. I told the PT that she cant be yelling like that in the ED and that i would speak to the nurse in regards to trying to get the medication she needs. Pt continued to raise her voice through her stay here and needed to be reminded that she can't be yelling in the ED. Upon doing vitals PT was teary eye and frustrated but was cooperative upon me getting her discharge vitals.
--- NOTE | 2025-04-20 23:44 | PC.NURSE ---
iv removed, reviewed discharge instruction with pt, pt verbalized understanding, care team Erica witnessed discharge.
[2025-04-20 23:46] VITALS: BP 124/89; PULSE 128; RESP 20; TEMP 36.5; O2SAT 95
--- NOTE | 2025-04-20 23:50 | MHC.CARE ---
CARE Team spoke with patient who initially reported she was interested in detox. She was very specific regarding the type of detox she wanted. CARE Team clinician explained the detox bed search process and asked patient if she was willing to allow for an open bed search to expand her options. Patient stated she only wanted to detox at [facility] on the medical floor. Patient was provided education around this, which she was not happy about, adding I don't want to go to a treatment program. Patient's father attempted to explain to patient she needed detox and would have to be agreeable to going to a program. Patient again stated, if she could not be admitted to a medical floor, then she would prefer to just go home. Patient added that she had not spoken to anyone in charge of her care and had only spoken to this clinician. She stated she had not been provided her medication and if she was going to be treated in this way, then she would just go home. CARE Team clinician inquired on the medication patient was referring to and learned she was requesting Gabapentin. This clinician agreed to speak with her provider to gain more clarity on the status of that medication. In speaking with NOAH Duncan, t/w learned the Gabapentin had been ordered. Patient later decided she would d/c AMA as she no longer felt supported by the ED staff and felt mistreated. Patient was not seen by the CARE Team for an ED Recovery consult as she was d/c by provider at her request, prior to assessment.
== END 2025-04-20 23:46 | disposition home or self-care (01) ==
PROVIDERS: Emergency Provider Emergency Medicine; PCP Internal Medicine
DX: F10.129 Alcohol abuse with intoxication, unspecified (principal); G89.29 Other chronic pain; Z86.69 Personal history of other diseases of the nervous system and sense organs
CPT/HCPCS: 36415; 80053; 80307; 83690; 83735; 84484; 84702; 85025; 93005; 96361; 96374; 99284; 99285; J3360

== ENCOUNTER → 2025-04-20 20:38 | Outpatient (BNV) | payer OTHER, SELFPAY | PROVIDERS: Emergency Provider Emergency Medicine; PCP Internal Medicine; Visit Provider Internal Medicine Cardiovascular Disease | DX: R00.0 Tachycardia, unspecified (principal) | CPT/HCPCS: 93010 ==

== ENCOUNTER 2025-04-21 10:08 | Emergency (ER) | payer OTHER, SELFPAY ==
[2025-04-21 10:16] VITALS: BP 106/73; BP 122/77; PULSE 84; PULSE 94; RESP 18; TEMP 36.9; O2SAT 97; BMI 21.0
--- NOTE | 2025-04-21 10:29 | PC.NURSE ---
Addendum entered by Deidra Pastor RN 04/21/25 11:20: 22G IV to LAC, IVF and medications per MAR. Original Note: Pt BIBA for reports of etoh withdrawl s/s, states she feels shaky and heart racing. A/O x 4, HR 98 on monitor. CIWA 8, pt reports feeling very anxious. Denies any seizures in past, pads placed on side rails for precautions.
--- NOTE | 2025-04-21 10:33 | ED_ITS ---
HPI - Alcohol General Chief Complaint: ETOH/Substance Use Stated Complaint: ALCOHOL WITHDRAWAL Time Seen by Provider: 04/21/25 10:24 Source: patient and EMS Mode of arrival: EMS Limitations: no limitations History of Present Illness ED Provider: HPI narrative: 30-year-old woman presenting wanting to detox from alcohol, last drink 20 hours ago, drinks about a bottle and a half of wine daily for about 2 weeks, presented to ER last night but states that the place was busy and she did not feel like she received good care and she left, states went home but has not been drinking, she had a left lower Ativan pill that was prescribed to her before to detox and she took it without relief, reports anxiety no SI or HI. States the underlying issues is marital problems she is experiencing. Related Data Home Medications ?Medication ?Instructions ?Recorded ?Confirmed gabapentin 100 mg capsule 100 mg PO DAILY@1200 5 04/18/25 gabapentin 300 mg capsule 300 mg PO BID 02/22/2504/18 bisacodyl 5 mg tablet,delayed 10 mg PO BEDTIME 5 04/18/25 release (Laxative (bisacodyl)) propranolol 10 mg tablet 10 mg PO BID 04/18/25 Previous Rx's ?Medication ?Instructions ?Recorded hydroxyzine HCl 25 mg tablet 25 mg PO BEDTIME #90 tabs 07/18/24 lansoprazole 30 mg capsule,delayed 30 mg PO DAILY #90 caps 03/21/25 release sucralfate 1 gram tablet 1 g PO BEDTIME #30 tabs 03/12 clonazepam 1 mg tablet (Klonopin) 1 mg PO TID PRN anxi ety 3 days #10 04/21/25 tabs Allergies Allergy/AdvReac Type Severity Reaction Status Date / Time cephalexin Allergy Severe Difficulty Verified 04/21/25 10:19 Breathing Penicillins Allergy Unknown Verified 04/21/25 10:19 prednisone AdvReac Anxiety Verified 04/21/25 10:19 Review of Systems 2 Constitutional: Constitutional: Reports as per HPI [facility] Past Medical History Medical History History of colitis Fatigue Hypotension Anemia Salmonella Abnormal findings on esophagogastroduodenoscopy (EGD) Alcohol use disorder Epigastric abdominal pain ROMY (generalized anxiety disorder) Acute bronchitis Open wound of right knee Cellulitis of buttock, left Cochlear implant in place Encounter to establish care Panic attacks Severe anxiety Anxiety Surgical History History of esophagogastroduodenoscopy Family History Family History Father BP (high blood pressure) Mother Breast cancer Other Mental health disorder Social History Social History Household Members: Family [facility] Are you a primary healthcare facility administrator to a significant other at home: No Do you presently have visiting nurse or other home services: No Alcohol intake: current Alcohol intake frequency: 3 or more drinks per day Alcohol type: wine Patient Tobacco Use Status: Never used Tobacco Smoked in Last 30 Days: No Advance Directives: No Advance Directives Information Provided: No service: No 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al status: employed 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 Cognitive needs: No Hearing needs: Yes (right ear hearing aids) Vision needs: No Physical Exam ED Vital Signs: Vital Signs - 24 hr 04/21/25 10:16 04/21/25 12:35 Temperature 98.4 F 97.5 F Pulse Rate 84 91 Respiratory Rate 18 15 Blood Pressure 106/73 107/62 Pulse Oximetry 97 97 Oxygen Delivery Method Room Air Room Air BMI result Body Mass Index 21.0 Const Other: General: ?Appears of stated age, extremely anxious affect ? no scleral icterus ? Neck: Supple, no LAD ? ?CV: RRR, no obvious murmurs appreciated ? ?Resp: ?No wheezing rales rhonchi no stridor moving air well ? Abd: ?Bowel sounds are present, no tenderness no rebound no rigidity ? ?MSK: FROM, strength 5/5 all extremities ? Skin: Warm, dry, intact, no jaundice ? ?Neuro: ?Alert and oriented x3, moving upper and lower extremities symmetrically, no obvious facial asymmetry noted, cranial nerves 2-12 intact, anxious but no tongue fasciculations or tremulousness Medical Decision Making Medical Decision Making MDM Narrative: 10:39 AM 04/21/2025 (Dr. 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 Marco Batres): Evaluated by care team patient we will be discharged with IOP, patient is comfortable with that, we will give some medications to help with the anxiety at home, Differential Diagnosis Differential Diagnoses: The differential diagnosis associated with the presentation includes Admission/Observation Consideration of admission/observation: Escalation of care including admission/observation considered Lab Data MDM Lab Attestation statement: I reviewed the patient's lab results. 04/21/25 11:10 04/21/25 11:10 Labs: Lab Results 04/21/25 Range/Units 11:10 WBC 5.2 (4.8-10.8) X10*3/uL RBC 4.02 L (4.20-5.50) X10*6/uL Hgb 12.0 (12.0-16.0) g/dl Hct 35.9 L (37.0-47.0) % MCV 89.3 (80.0-98.0) fL MCH 29.9 (27.0-33.0) pg MCHC 33.4 (31.0-35.0) g/dl RDW 12.3 (11.0-16.0) % Plt Count 257 (160-400) X10*3/uL MPV 8.4 L (9.4-12.3) fL Immature Gran % (Auto) 0.2 (0.0-0.4) % Neut % (Auto) 65.5 (45-73) % Lymph % (Auto) 22.2 (20-40) % Dukes % (Auto) 9.8 (2-11) % Eos % (Auto) 1.7 (0-4) % Baso % (Auto) 0.6 (0-2) % Lymph # (Auto) 1.2 (1.2-4.9) X10*3/uL Dukes # (Auto) 0.5 (0.1-1.2) X10*3/uL Eos # (Auto) 0.1 (0.0-0.4) X10*3/uL Baso # (Auto) 0.0 (0.0-0.2) X10*3/uL Abs Immat Gran (auto) 0.01 (0.00-0.03) X10*3/uL Absolute Neuts (auto) 3.4 (2.0-8.3) x10*3/uL Absolute Nucleated RBC 0.000 (0.0-0.012) X10*3/uL Nucleated RBC % (auto) 0.0 (0.0-0.2) /100WBC Sodium 138 (135-145) mmol/L Potassium 3.8 (3.3-5.1) mmol/L Chloride 102 (96-108) mmol/L Carbon Dioxide 28 (22-29) mmol/L Anion Gap 12 (12-20) BUN 13 (9-16) mg/dL Creatinine 0.64 (0.5-1.4) mg/dL Estim Creat Clear Calc 117.5 Estimated GFR > 60 Random Glucose 78 (60-115) mg/dL Calcium 8.5 (8.4-10.2) mg/dL Magnesium 2.0 (1.6-2.6) mg/dL Total Bilirubin 0.7 (0.0-1.0) mg/dL AST 65 H (5-31) U/L ALT 76 H (0-31) U/L Alkaline Phosphatase 81 (39-117) U/L Total Protein 7.0 (6.5-8.0) g/dL Albumin 4.3 (3.5-5.0) g/dL Lipase 22 (8-78) U/L Ethyl Alcohol < 10 mg/dL Independent Interpretation I performed an independent interpretation of an: EKG (90 beats per minute otherwise normal ECG without dysrhythmia, AV you blocks or ST-T changes to suspect underlying ACS, my independent interpretation) Medications Administered Generic Name Dose Route Start Last Admin Trade Name Freq PRN Reason Stop Dose Admin Lactated Ringer's 1,000 mls @ 0 mls/hr 04/21/25 10:45 04/21/25 11:07 Lr IV 999 mls/hr .Q0M KATHIE Administration Wide Open Discontinued Medications Generic Name Dose Route Start Last Admin Trade Name Frank PRN Reason Stop Dose Admin Diazepam 5 mg 04/21/25 10:34 04/21/25 11:07 Diazepam 10 Mg/2 Ml Cartridge IVPUSH 04/21/25 10:35 5 mg STAT STA Administration Hydroxyzine HCl 50 mg 04/21/25 11:36 04/21/25 12:04 Hydroxyzine Hcl 50 Mg Tablet PO 04/21/25 11:37 50 mg ONCE ONE Administration Ondansetron HCl 4 mg 04/21/25 10:34 04/21/25 11:07 Ondansetron Hcl 4 Mg/2 Ml Vial IVPUSH 04/21/25 10:35 4 mg ONCE ONE Administration Critical Care Time Critical Care Time Critical Care Time: Yes Total Critical Care Time: 35 Attestation: Time is exclusive of separately billable procedures. Time includes: direct patient care, patient reassessment, coordination of patient care, interpretation of data (laboratory data, pulse oximetry, arterial blood gases and chest xrays), review of patient's medical records, medical consultation and documentation of patient care. Procedures excluded from critical care time: central intravenous line placement and electrocardiography. Discharge Plan Discharge Clinical Impression: Anxiety, Alcohol use disorder Patient Disposition: Home, Self-Care Additional Instructions: Evaluated in the emergency department, workup reassuring, which included blood work, physical exam, vital signs, stay well hydrated, Klonopin 1 mg every 6-8 hours needed for anxiety you can take half a pill if you need to, do not mix with alcohol, and follow up recovery team recommendations any thoughts of harming yourself any other concerns come back to the ER Alcohol use disorder You were seen in the Emergency Department today for treatment of alcohol use disorder.? You may have been given medications to help with your withdrawal symptoms.? Please do not drink alcohol with them. This is very dangerous and can cause respiratory depression or other adverse reactions depending on the medication. If you would like to cut down or stop your alcohol use please consider calling our outpatient Addiction Treatment office:? [facility] (M-F [id number]) [address] [place] [address] [address] You have also been given a list of treatment providers in the area that can assist as well.? If you experience seizures, vomiting blood, black stools, falls, severe headache, chest pain, fevers, trouble breathing, hallucinations or any other concerns you need to call 911 or seek immediate care. Please stay hydrated. Prescriptions: New clonazepam [Klonopin] 1 mg tablet 1 mg PO TID PRN (Reason: anxiety) 3 Days Qty: 10 0RF No Action gabapentin 300 mg capsule 300 mg PO BID propranolol 10 mg tablet 10 mg PO BID bisacodyl [Laxative (bisacodyl)] 5 mg tablet,delayed release (DR/EC) 10 mg PO BEDTIME hydroxyzine HCl 25 mg tablet 25 mg PO BEDTIME Qty: 90 3RF gabapentin 100 mg capsule 100 mg PO DAILY@1200 lansoprazole 30 mg capsule,delayed release(DR/EC) 30 mg PO DAILY Qty: 90 3RF sucralfate 1 gram tablet 1 g PO BEDTIME Qty: 30 4RF Print Language: Namibian
--- NOTE | 2025-04-21 10:36 | ECG_ITS ---
Test Reason : WEAKNESS Blood Pressure : */* mmHG Vent. Rate : 90 BPM Atrial Rate : 90 BPM P-R Int : 144 ms QRS Dur : 80 ms QT Int : 378 ms P-R-T Axes : 45 27 23 degrees QTcB Int : 462 ms Normal sinus rhythm Normal ECG When compared with ECG of 20-Apr-2025 20:45, Nonspecific T wave abnormality, improved in Anterior leads Referred By: Marco Batres Electronically Signed By: FENG HICKEY MD
--- OUTSIDE RECORDS SUMMARY | 2025-04-21 10:39 | XMS_ITS | Clinical Summary ---
Author Organization [employer] Formerly [facility], [facility] Address [address] [address] Phone Care Team Providers Care Granite Chip Terrazzo Finisher Name Role Phone Unavailable Primary Care Provider [...] 2014 INFLUENZA VACCINE (#1) 2025 COVID-19 VACCINE (2024-2 6 season) 2025 HEPATITIS A VACCINES Aged Out [...] Devices Not on file Insurance [place] [address] [address] [place] [place] [id number] [place], [place] [id number] [place] [address] HMO Additional Source Comments The information contained in this document represents components of the legal health record. It is not the complete legal health record.[facility]
[2025-04-21] MEDS: Lactated Ringers 1,000 ML 999 ML IV (11:07)
[2025-04-21] MEDS: diazePAM 10 MG/2 ML CARTRIDGE 5 MG IVPUSH (11:07)
[2025-04-21 11:18] LABS: MANUAL DIFF FLAG NO
[2025-04-21 11:19] LABS: Hematocrit 35.9 % (37.0-47.0); Hemoglobin 12.0 g/dl (12.0-16.0); Imm Gran Abs Auto 0.01 X10*3/uL (0.00-0.03); Imm Gran Pct Auto 0.2 % (0.0-0.4); Lymphocytes Absolute Auto 1.2 X10*3/uL (1.2-4.9); Mean Corpuscular HGB Conc 33.4 g/dl (31.0-35.0); Mean Corpuscular Hemoglobin 29.9 pg (27.0-33.0); Mean Corpuscular Volume 89.3 fL (80.0-98.0); NRBC Abs Auto 0.000 X10*3/uL (0.0-0.012); NRBC Pct Auto 0.0 /100WBC (0.0-0.2); Platelet Count 257 X10*3/uL (160-400); Red Blood Count 4.02 X10*6/uL (4.20-5.50); White Blood Count 5.2 X10*3/uL (4.8-10.8)
--- NOTE | 2025-04-21 11:38 | MHC.RECOVRN ---
Pt is a 30-y/o female with a history of AUD, Anxiety, and Panic disorder who presented to the ED concerned about alcohol withdrawals as she reported her last drink was 24 hrs ago. Met with pt in ED22 to discuss recent alcohol use, recovery supports and other resources. Upon approach pt is oriented and cooperative. Speech is coherent & thought process is logical. Pt receptive to conversing with this sql report writer.?? Mood is described as ?anxious? and affect is congruent. Insight and judgment appear fair at this time. Pt denies SI/HI/psychosis.? Pt reported consuming 2 bottles of wine daily for the past 2 weeks. Prior to this pt was only drinking socially on the weekends ~2-3 drinks. Pt has a history of 2 ATS admissions for benzodiazepine discontinuation. Pt identified recent trigger being marital stressors/conflict. Pt states she feels safe at home, but has been using drinking alcohol as a way to cope with conflict. When asked about withdrawal symptoms pt denied a hx of delirium tremens but has experienced seizure related to benzodiazepine (xanax) withdrawal ~5 years ago. At this time pt states she is feeling very anxious, heart racing , and worried about withdrawal symptoms worsening. Pt is declining ATS referrals at this time. States she just wants to be medically safe before she discharges back home, but does not think she needs inpatient treatment. Discussed outpatient supports as well such as the [facility], IOPs, and PHP pt however not interested at this time. During the assessment low-risk drinking guidelines were reviewed. Pt was counseled on specific harm-reduction strategies including setting a personal limit of no more than 2-3 drinks per occasion, alternating alcohol with water, pacing intake, and eating food prior to and during drinking.? Reviewed w/ pt the medical risks of heavy or daily use, including liver damage, gastrointestinal irritation, cardiovascular strain, and the dangers of abrupt withdrawal in dependent individuals.?Pt stated she is well aware of the risks. Pt was advised on nutrition, hydration, and vitamin supplementation, including discussing with her PCP the potential benefit of daily thiamine and multivitamins if use continues at similar or higher levels. Pt voicing understanding Reviewed pt?s readiness for change using motivational interviewing, and reaffirmed pt?s personal values such as health, relationships and their concerns such as developing a tolerance, blackouts, or reliance on alcohol for coping.? Pt expressed interest in immediate abstinence and agreed to consider healthier coping strategies. Treatment options were discussed, including [facility], and inpatient & outpatient treatment (ATS, CSS, TSS, IOPs).? Written educational resources on harm reduction and list of treatment facilities were provided and reviewed with pt.? Pt declined outpatient AUD tx appointment at the [facility] and declined [facility] initiation. No other questions or concerns offered at this time. Pt has the ACS team?s contact info should any questions arise.?
[2025-04-21 11:40] LABS: Alanine Aminotransferase 76 U/L (0-31); Albumin Level 4.3 g/dL (3.5-5.0); Anion Gap 12 (12-20); Aspartate Amino Transferase 65 U/L (5-31); Blood Urea Nitrogen 13 mg/dL (9-16); Calcium 8.5 mg/dL (8.4-10.2); Carbon Dioxide 28 mmol/L (22-29); Chloride 102 mmol/L (96-108); Creatinine Clr Calc Pharmacy 117.5; Estimated Glomerular Filt Rate > 60; Lipase 22 U/L (8-78); Magnesium 2.0 mg/dL (1.6-2.6); Potassium 3.8 mmol/L (3.3-5.1); Sodium 138 mmol/L (135-145); Total Protein 7.0 g/dL (6.5-8.0)
[2025-04-21 11:42] LABS: Alkaline Phosphatase 81 U/L (39-117)
[2025-04-21 12:35] VITALS: BP 107/62; PULSE 91; RESP 15; TEMP 36.4; O2SAT 97
--- NOTE | 2025-04-21 13:50 | MHC.CARE ---
Rough And Truing Machine Operator met with Lashay following the initial recovery screening/assessment. Lashay was accepting of a referral to [facility], as these services were recommended by credit underwriter. Lashay shared that she has been more lonely as of late, and would benefit from increased day structure designed to help her recover from alcohol use and helicopter technician effectively with marital issues and pending legal involvement. Lashay denied SI.HI.AVH. She admittedly made statements x1 week ago, that were passive in nature and exacerbated from withdrawal, however she identified several protective factors and goals. She verbalized a desire to stay sober and resolve interpersonal issues with the assistance of weekly therapy. She reported that her is staying with his parents, therefore she feels more comfortable at home. She politely declined staying with her parents for additional support. Lashay identified a friend as someone she can reach out to and rely on.
[2025-04-21 14:37] VITALS: BP 96/57; PULSE 96; RESP 18; TEMP 36.5; O2SAT 100
== END 2025-04-21 14:46 | disposition home or self-care (01) ==
PROVIDERS: Emergency Provider Emergency Medicine; PCP Internal Medicine
DX: F10.239 Alcohol dependence with withdrawal, unspecified (principal); F41.1 Generalized anxiety disorder; F43.0 Acute stress reaction; R11.0 Nausea; Z79.899 Other long term (current) drug therapy; Z51.81 Encounter for therapeutic drug level monitoring
CPT/HCPCS: 36415; 80053; 80307; 83690; 83735; 85025; 93005; 96361; 96374; 96375; 99285; J2405; J3360; J7120; S9485

== ENCOUNTER → 2025-04-21 10:36 | Outpatient (BNV) | payer OTHER, SELFPAY | PROVIDERS: Emergency Provider Emergency Medicine; PCP Internal Medicine; Visit Provider Internal Medicine Cardiovascular Disease | DX: R53.1 Weakness (principal) | CPT/HCPCS: 93010 ==

== ENCOUNTER 2025-05-01 15:26 | Outpatient (AMB) | payer OTHER, SELFPAY ==
[2025-05-01 15:30] VITALS: BP 111/71; PULSE 92; TEMP 35.9; O2SAT 98; BMI 21.1
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
--- OUTSIDE RECORDS SUMMARY | 2025-05-01 20:36 | XMS_ITS | Data Portability ---
Author Organization [place] - [facility], Allergy Address [address] [address] Care Team Providers Care Gum Mixer Name Role Phone SALEEM CAPUTO Primary Care Provider [phone] Assessment Encounter Date Assessment Date Assessment LastModified [...] to read at home, which gives a [id number] discussion on what causes migraine and how [...] which should help. Follow up: As needed [email or web address] Not available 09/07/2024 10:35:42 Plan of Treatment [...] audio gram No observ ation record ed. [email or web address] Not Available 08/13 10:38:37 Result Notes None recorded. Problems Name Problem SNOMED Code Status Onset Date Resolution Date Notes Provider Name and Address Organization Details Recorded Time Chronic pharyngit is 487372 Active 2016 Chronic sore throat; Note: Date Diagnosed: 08/18/2016 12:20 PM (J31.2) Not Available [facility] 4 02:41:31 Gastroeso phageal reflux disease without esophagit is 571326636 Active 2016 Gastro-eso phageal reflux disease without esophagiti s; Note: Date Diagnosed: 08/18/2016 12:25 PM (K21.9) Not Available [facility] 4 02:41:23 Sensorine ural hearing loss of bilateral ears 219539688 Active 2017 Sensorineu ral hearing loss, bilateral; Note: Date Diagnosed: 02/08/2018 2:56 PM (H90.3) Not Available [facility] 4 02:41:27 Refractor y migraine 546067742 Active 2017 Other migraine, intractabl e, without status migrainosu s; Note: Date Diagnosed: 02/08/2018 3:04 PM (G43.819) Not Available [facility] 4 02:41:24 Dizziness and giddiness 157197778 Active 2017 Dizziness and giddiness; Note: Date Diagnosed: 02/08/2018 3:04 PM (R42) Not Available [facility] 02:41:28 M ni re's disease 21896702 Active 2017 Meniere's disease, right ear; Note: Date Diagnosed: 03/03/2018 5:11 PM (H81.01) Not Available [facility] 4 02:41:29 Generaliz ed anxiety disorder 53291792 Active 2020 Generalize d anxiety disorder; Note: Date Diagnosed: 08/08/2020 9:48 AM (F41.1) Not Available [facility] 4 02:41:23 Neurologi saskia symptom 888620839 Active 2020 Other symptoms and signs involving the nervous system; Note: Date Diagnosed: 12/19/2020 4:56 PM (R29.818) Not Available [facility] 02:41:25 Vertigo of central origin 94764460 Active 2023 Vertigo of central origin; Note: Date Diagnosed: 08/31/2023 2:43 PM (H81.4) Not Available [facility] 4 02:41:28 Problem Notes None recorded. Medical [...] dose pack 09/07 completed Medicati on ID: [id number] D uration Value: 6 Brand Name: Medrol (Ion) Se nd Method: E-Prescr ibed Sub s Allowed: subs OK Speci al Instruct ion: Take 1 pack as directed Medicat ionGener icName: Medrol (Ion) Not Available Not Available Not Available prednison e 20 mg tablet 03/03 completed Medicati on ID: [id number] P rescribe d By Name: Jude Pacheco [...] elayed release 02/08 completed Medicati on ID: [id number] D uration Value: 30 Reason: () Brand Name: omeprazo le Send Method: E-Prescr ibed Sub s Allowed: subs OK Speci al Instruct ion: TAKE 1 CAPSULE EVERY DAY Medi cationGe nericNam e: omeprazo le Not Available Not Available Not Available alprazola m 0.25 mg tablet 09/07 completed Medicati on ID: [id number] D uration Value: 10 Brand Name: alprazol [...] mg tablet 09/07 completed Medicati on ID: [id number] B rand Name: lorazepa m Send Method: [...] by mouth 08/08 completed Medicati on ID: [id number] P rescribe d By Name: Jude Pacheco [...] Available Xanax 02/08 completed Medicati on ID: [id number] Laura flaherty: () Brand Name: xanax Se nd Method: E-Prescr ibed Sub s Allowed: subs OK Medic ationGen ericName : xanax Not Available Not Available Not Available Nexium 24HR 20 mg tablet,de layed release 09/07 completed Medicati on ID: [id number] B rand Name: Nexium 24HR Sen d [...] ICD10 Code Diagnosis IMO Codes Diagnosis Note [id number] DOMENIC TOWNSEND MD [facility] [address] [address] 09/07/2024 09:48:51 09/07/2024 10:36:51 Cochlear prosthesis in situ [id number] Z96.21 Patient is likely due to get a new processor. This should be covered by her insurance as her current processor has been deemed obsolete and is no longer repairable . I have asked patient's mother to contact [employer] to initiate the process for getting a new processor. In the meantime they will follow-up with the [facility] Cochlear Implant Program for mapping and device troublesho oting. Refractory migraine [id number] G43.819 Vertigo of central origin [id number] H81.4 Neurological symptom [id number] R29.818 Health Concerns Section Related Observation LastModified by Organization Detai ls LastModified Time None Recorded Concern Status LastModified by Organization Details LastModified Time None Recorded Advance Directives Directive None Recorded Payers Insurance Date Sequence Insurance Name Policy Number Policy Dumont Covered Member ID Dumont Member ID Guarantor Name 09/07/2024 [address] [employer] [facility] [id number] Lashay Martel [id number] Lashay Martel 09/07/2024 1 [facility] [id number] Lashay Martel [id number] Lashay Martel Notes Date Note Type Note [...] I provided her.Patient is working with the [facility] Cochlear Implant Program for mapping and device maintenance. Her current processor is about 8 years old and is starting to fail. They just needed to get a new coil because it broke. She comes in today accompanied by her mother DOMENIC TOWNSEND MD [address] [place] [address], [phone], [facility] - [facility] 09/07/2024 10:37:12 OBGyn Episode No OBEpisode recorded.
--- OUTSIDE RECORDS SUMMARY | 2025-05-01 20:36 | XMS_ITS | Clinical Summary ---
Author Organization [facility] Address [address] [employer] [address] [address] Phone Care Team Providers Care Surveillance Investigator Name Role Phone Unavailable Primary Care Provider [...] Devices Not on file [place] [address] [address] [place] [place] [id number] [place] [place] [id number] [address] HMO Additional Source Comments The information contained in this document represents components of the legal health record. It is not the complete legal health record.[facility]
== END 2025-05-01 16:02 | disposition home or self-care (01) ==
LOC: HO.HMCSH 15:26
PROVIDERS: PCP Internal Medicine; Visit Provider Internal Medicine
DX: R45.89 Other symptoms and signs involving emotional state (principal); Z23 Encounter for immunization

== ENCOUNTER → 2025-05-01 15:26 | Outpatient (BNVA) | payer OTHER, SELFPAY | PROVIDERS: PCP Internal Medicine; Visit Provider Internal Medicine | DX: R45.89 Other symptoms and signs involving emotional state (principal); Z28.21 Immunization not carried out because of patient refusal; Z13.31 Encounter for screening for depression; Z13.39 Encounter for screening examination for other mental health and behavioral disorders | CPT/HCPCS: 90471; 96127 ==